=== PATIENT | male | born 1935 | race Caucasian/White ===

== ENCOUNTER → 2016-06-07 | Day surgery (SDC) | payer OTHER ==
[2016-05-30 11:28] VITALS: Ht 185.4 cm; Wt 90.9 kg
[~2016-06-07] VITALS: Ht 185.4 cm; Wt 90.9 kg
[~2016-06-07] MED LIST: AMLO-110 PO; ASPI81TA28 PO; CHOL1000 PO; CITA20TA9 PO; CYM/30 PO; DICY10CA55 PO; EpHEDrine SULFATE 50MG/5ML SYR ONE; HYDR-3419 PO; LEVO75TA PO; LIDOCAINE HCL 2% 2 ML VIAL (20MG/ML) ONE; LISI20TA3 PO; MECL1TAB40 PO; MULTTAB58 PO; NTRGSL/4 UT; OMEP20TA74 PO; OXYC1TAB3 PO; PHENYLEPHRINE 100MCG/ML 5ML SYR ONE; PROPOFOL IV EMULSION 10 MG/ML 20 ML VIAL IV ONE; SODIUM CHLORIDE 0.9% 500ML 500 ML IV ONE; TAMS0.4C38 PO
--- NOTE | 2016-06-07 12:40 | Endo History and Physical ---
History & Physical Date of Service: June 07, 2016. Chief Complaint: Referring Physician: History of Present Illness 81 yo presenting for EGD/Colonosocpy for polyp follow up and EGD for dysphagia. Past Medical History Diabetes, Endocrine Disorder, Arthritis, Gastrointestinal Disorder, Reflux, Cancer, High Cholesterol, Sleep Apnea, Heart Disease, Hypertension, Thyroid Disease, Chronic Steroid Use, CVA/TIA, Depression Past Surgical History Hx Cardiac Surgery: No Hx Internal Defibrillator: No Hx Pacemaker: No Hx Abdominal Surgery: Yes (APPY) Hx of Implantable Prosthesis: No Hx Post-Op Nausea and Vomiting: No Hx Cancer Surgery: No Hx Thoracic Surgery: No Hx Orthopedic: Yes (RT/LT RALPH) Hx Urinary Tract Surgery: No Family History None Social History Smoking Status: Former Smoker Hx Substance Use: Yes (SEE MED LIST) Hx Alcohol Use: No Allergies Coded Allergies: Amoxicillin (Unverified Adverse Reaction, Intermediate, JAUNDICE, 05/30/16) Clavulanic Acid (Unverified Adverse Reaction, Intermediate, JAUNDICE, 05/30) Isosorbide Nitrate (Unverified Adverse Reaction, Unknown, PAIN IN LIMBS DIARRHEA, 05/30/16) Current Medications Reported Home Medications Medications Dose Route/Sig Max Daily Dose Days Date Category Vitamin D3 (Cholecalciferol) 1,000 Unit Tab 1 Tab PO QAM 05/30/16 Reported Aspirin Ec (Aspirin) 81 Mg Tab 81 Mg PO BID 05/30/16 Reported Roxicodone Ir (Oxycodone HCl) 5 Mg Tab 1 Tab PO Q2H PRN 05/30/16 Reported Bentyl (Dicyclomine Hcl) 10 Mg Cap 10 Mg PO QID PRN 05/30/16 Reported Synthroid (Levothyroxine Sodium) 75 Mcg Tab 75 Mcg PO QAM 05/30/16 Reported Vicodin (5MG/300MG) (Hydrocodon/Acetaminophen 5MG/300MG) 1 Tab Tab 1 Tab PO Q4H PRN 01/19/16 Reported Ra Omeprazole (Omeprazole) 20 Mg Tab 1 Tab PO BID 12/20/15 Reported Nitrostat (Nitroglycerin) 0.4 Mg Tab 0.4 Mg UT PRN 12/09/15 Reported Norvasc (Amlodipine Besylate) 5 Mg Tab 5 Mg PO QAM 06/30/15 Reported Flomax (Tamsulosin Hcl) 0.4 Mg Cap 1 Cap PO QPM 01/24/15 Reported Meclizine Hcl 12.5 Mg Tab 12.5-25 Mg PO TID PRN 12/26/12 Reported Multivitamin (Multiple Vitamin) 1 Tab Tab 1 Tab PO QAM 07/31/12 Reported Prinivil (Lisinopril) 20 Mg Tab 20 Mg PO QAM 01/04/12 Reported Vital Signs Weight (Kilograms): 90.91 Height (Feet): 6 Height (Inches): 1 Physical Exam General Appearance: WD/WN, no apparent distress Respiratory/Chest: Respiratory effort: no dyspnea Auscultation: breath sounds normal, CTA except as noted Cardiovascular: Apical Impulse: not displaced Heart Auscultation: RRR, normal S1, normal S2, no murmurs Abdomen: Bowel Sounds: normal Inspection & Palpation: soft, non-distended Assessment and Plan 81 yo w presenting to EGD/Colonoscopy for dysphagia and rectal bleeding and polyp history
--- NOTE | 2016-06-07 13:30 | GI REPORT ---
Procedure Date: 06/07/2016 12:08 PM Procedure: Colonoscopy Indications: Rectal bleeding Medicines: General Anesthesia Complications: No immediate complications. Estimated blood loss: None. Estimated Blood Loss: Estimated blood loss: none. Procedure: Pre-Anesthesia Assessment: - Pre-Anesthesia Assessment: - Prior to the procedure, a History and Physical was performed, and patient medications, allergies and sensitivities were reviewed. The patient's tolerance of previous anesthesia was reviewed. Please see [employer] for complete details. - The risks and benefits of the procedure and the sedation options and risks were discussed with the patient. All questions were answered and informed consent was obtained. - Patient identification and proposed procedure were verified prior to the procedure by the physician and the nurse. The procedure was verified in the pre-procedure area in the procedure room. After obtaining informed consent, the endoscope was passed carefully and meticuously under direct vision and only advanced when the lumen was clearly identified, C02 insuflation was utilized throughout the entirity of the procedure. Throughout the procedure, the patient's blood pressure, pulse, and oxygen saturations were monitored continuously. After I obtained informed consent, the scope was passed under direct vision. Throughout the procedure, the patient's blood pressure, pulse, and oxygen saturations were monitored continuously. The scope was introduced through the anus and advanced to the terminal ileum, with identification of the appendiceal orifice and IC valve. The scope was introduced through the and advanced to. The colonoscopy was performed without difficulty. The patient tolerated the procedure well. The quality of the bowel preparation was good. Findings: A patchy area of mildly altered vascular mucosa was found in the rectum. no inflammation and has appearances of radiation changes. Multiple small and large-mouthed diverticula were found in the sigmoid colon. There was narrowing of the colon in association with the diverticular opening. Erythema was seen in association with the diverticular opening with edema. The terminal ileum appeared normal. The exam was otherwise without abnormality on direct and retroflexion views. Impression: - Altered vascular mucosa in the rectum. - Mild diverticulosis in the sigmoid colon. There was narrowing of the colon in association with the diverticular opening. Erythema was seen in association with the diverticular opening. - The examined portion of the ileum was normal. - The examination was otherwise normal on direct and retroflexion views. - No specimens collected. Recommendation: - Discharge patient to home (with escort). - Return to referring physician as previously scheduled. - Continue present medications. Alexander Lo MD 06/07/2016 1:28:46 PM This report has been signed electronically. Note Initiated On: 06/07/2016 12:08 PM I attest to the content of the Intraoperative Record and orders documented therein, exceptions below
--- NOTE | 2016-06-07 13:32 | GI REPORT ---
Procedure Date: 06/07/2016 12:09 PM Procedure: Upper GI endoscopy Indications: Dysphagia Medicines: General Anesthesia Complications: No immediate complications. Estimated blood loss: None. Estimated Blood Loss: Estimated blood loss: none. Procedure: Pre-Anesthesia Assessment: - Pre-Anesthesia Assessment: - Prior to the procedure, a History and Physical was performed, and patient medications, allergies and sensitivities were reviewed. The patient's tolerance of previous anesthesia was reviewed. Please see [id number] for complete details. - The risks and benefits of the procedure and the sedation options and risks were discussed with the patient. All questions were answered and informed consent was obtained. - Patient identification and proposed procedure were verified prior to the procedure by the physician and the nurse. The procedure was verified in the pre-procedure area in the procedure room. After obtaining informed consent, the endoscope was passed carefully and meticuously under direct vision and only advanced when the lumen was clearly identified, C02 insuflation was utilized throughout the entirity of the procedure. Throughout the procedure, the patient's blood pressure, pulse, and oxygen saturations were monitored continuously. After obtaining informed consent, the endoscope was passed under direct vision. Throughout the procedure, the patient's blood pressure, pulse, and oxygen saturations were monitored continuously. The On-site loaner was introduced through the mouth, and advanced to the second part of duodenum. The upper GI endoscopy was accomplished without difficulty. The patient tolerated the procedure well. Findings: A hiatus hernia was present. No endoscopic abnormality was evident in the esophagus to explain the patient's complaint of dysphagia. It was decided, however, to proceed with dilation of the entire esophagus. A guidewire was placed and the scope was withdrawn. Dilation was performed with a Savary dilator with mild resistance at 15 mm. The entire examined stomach was normal. The examined duodenum was normal. Impression: - Hiatus hernia. - No endoscopic esophageal abnormality to explain patient's dysphagia. Esophagus dilated. Dilated. - Normal stomach. - Normal examined duodenum. - No specimens collected. Recommendation: - Discharge patient to home (with escort). - Return to referring physician as previously scheduled. - Continue present medications. Alexander Lo MD 06/07/2016 1:30:48 PM This report has been signed electronically. Note Initiated On: 06/07/2016 12:09 PM I attest to the content of the Intraoperative Record and orders documented therein, exceptions below
--- NOTE | 2016-06-07 13:33 | Discharge Instructions ---
Endoscopy Patient Instructions Date / Procedure(s) Performed June 07, 2016. Colonoscopy, EGD Allergy Information Coded Allergies: Amoxicillin (Verified Adverse Reaction, Intermediate, JAUNDICE, 06/07/16) Clavulanic Acid (Verified Adverse Reaction, Intermediate, JAUNDICE, 06/07/16 ) Isosorbide Nitrate (Verified Adverse Reaction, Unknown, PAIN IN LIMBS DIARRHEA, 06/07/16) Discharge Date / Findings June 07, 2016. Small hernia in esophagus-dilated Colon with changes of diverticuli, hemorrhoids, and radiation changes all of which can cause rectal bleeding Medication Instructions Stopped Medication(s): took ASA this am Provider Instructions Activity Restrictions - No exercising or heavy lifting for 24 hours. - Do not drink alcohol the day of the procedure. - Do not drive a car or operate machinery until the day after the procedure. - Do not make any important decisions or sign important papers in 24 hours after the procedure. Following Day: - Return to full activity which may include returning to work/school. Diet Start your diet with liquids and light foods (jello, soup, juice, toast). Then eat your usual diet if not nauseated. Treatment For Common After Affects For mild abdominal pain, bloating, or excessive gas: - Rest - Eat lightly - Lie on right side Follow-Up Information Follow-up with Dr. Jonathan Lan as scheduled Anesthesia Information What You Should Know You have had a procedure that required some medicine to reduce anxiety and discomfort. This treatment is called moderate sedation. After receiving the treatment, you may be sleepy, but you will be able to breathe on your own. The effects of the treatment may last for several hours. Follow these instructions along with Activity/Diet recommendations noted above: * Do NOT do anything where dizziness or clumsiness would be dangerous. * Rest quietly at home today, then you can be up and about tomorrow. * Have a responsible person stay with you the rest of today. * You may have had an I.V. today. If so, you may take the dressing off later today. Recommendations Call your doctor if: * Trouble breathing * Continuous vomiting for more than 24 hours * Temperature above 101 degrees * Severe abdominal pain or bloating * Pain not relieved by pain medicine ordered * There is increased drainage or redness from any incision * A large amount of rectal bleeding greater than 2-3 tablespoons. (If you had a polyp/s removed or have hemorrhoids, a small amount of blood - from the rectum is to be expected.) * You have any unanswered questions or concerns. IN THE EVENT OF A SERIOUS EMERGENCY, GO TO THE NEAREST EMERGENCY ROOM Your discharge instructions were prepared by provider Alexander Lo. Patient Instructions Signature Page Parth Jett Patient (or Guardian) Signature/Date: I have read and understand the instructions given to me by my caregivers. Caregiver/RN/Doctor Signature/Date: The above-named patient and/or guardian has received patient instructions on this date. + Original Patient Signature Page (only) stays with chart. Please make copy for patient.
[2016-06-07 13:55] VITALS: BP 116/67; PULSE 93; O2SAT 99
--- NOTE | 2016-06-07 14:24 | Anesthesiology Progress Note ---
Anesthesia Post Op Note Date & Time June 07, 2016 at 14:24 Vital Signs Pain Intensity: 0 Vital Signs Past 12 Hours Date Time Temp Pulse Resp B/P Pulse Ox O2 Delivery O2 Flow Rate FiO2 06/07/16 13:55 93 18 116/67 99 Room Air 06/07/16 13:40 93 18 122/75 99 Mask 06/07/16 13:25 98 18 101/59 99 Mask 06/07/16 12:26 36.9 90 18 121/85 95 Room Air Notes Mental Status: alert / awake / arousable, participated in evaluation Pt Amnestic to Procedure: Yes Nausea / Vomiting: adequately controlled Pain: adequately controlled Airway Patency, RR, SpO2: stable & adequate BP & HR: stable & adequate Hydration State: stable & adequate Anesthetic Complications: no major complications apparent
== END | disposition home or self-care (01) ==
LOC: C.GI 11:51
PROVIDERS: ATTEND Internal Medicine
DX: R13.10 Dysphagia, unspecified (principal); K62.5 Hemorrhage of anus and rectum; K57.30 Diverticulosis of large intestine without perforation or abscess without bleeding; K44.9 Diaphragmatic hernia without obstruction or gangrene; E11.9 Type 2 diabetes mellitus without complications; M19.90 Unspecified osteoarthritis, unspecified site; K21.9 Gastro-esophageal reflux disease without esophagitis; E78.00 Pure hypercholesterolemia, unspecified; G47.39 Other sleep apnea; I10 Essential (primary) hypertension; F32.9 Major depressive disorder, single episode, unspecified; G47.30 Sleep apnea, unspecified; Z86.73 Personal history of transient ischemic attack (TIA), and cerebral infarction without residual deficits; Z79.82 Long term (current) use of aspirin; Z79.899 Other long term (current) drug therapy; Z85.46 Personal history of malignant neoplasm of prostate

== ENCOUNTER → 2016-07-27 | Outpatient (CLI) | payer OTHER ==
[~2016-07-27] MED LIST changes: -CITA20TA9 PO; -CYM/30 PO; -EpHEDrine SULFATE 50MG/5ML SYR ONE; -LIDOCAINE HCL 2% 2 ML VIAL (20MG/ML) ONE; -PHENYLEPHRINE 100MCG/ML 5ML SYR ONE; -PROPOFOL IV EMULSION 10 MG/ML 20 ML VIAL IV ONE; -SODIUM CHLORIDE 0.9% 500ML 500 ML IV ONE
[2016-07-27 13:28] VITALS: BP_SYST 111; BP_SYST 115; BP_DIAS 61; BP_DIAS 66; PULSE 92; TEMP 36.8; O2SAT 93
--- NOTE | 2016-07-27 17:25 | Radiation Oncology Follow-Up ---
Radiation Oncology Follow-Up Date of Visit Jul 27, 2016. 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 PSA, pre-evaluation PSA 5.41 Status post biopsy 06/10/2009 Vikram 4+4 Biopsy stage T2a Active surveillance Rising PSA 6.5 equals 13 on Proscar Status post completion of radiation therapy 02/24/2015 received 8100 cGy Last Edited By: Ebony Ordaz on Jan 19, 2016 16:48 (Abbey Barnett PA-C) History of Present Illness Mr. Jett is a 79-year-old gentleman who was diagnosed with prostate cancer in 2009. He did have an initial PSA of 5.41 which prompted a biopsy which was completed by Dr. Flores on 06/10/2009 which revealed Beresford 4+4 prostate adenocarcinoma disease in the right apex only. At this point the decision was for watchful waiting with no active intervention. The patient continues to do relatively well with a PSA that was stabilized on Proscar. The patient did eventually have a stroke and was found to have some urinary incontinence and this was felt to be due to the prostate cancer to the patient was initiated with Lupron in November 2011 and had 2 injections and his PSA did drop to 0.01. The patient was unable to tolerate Lupron for very long and refused further in the patient has been on active surveillance since then. The patient's more recent PSAs have been 3.7 01/08/2014, 4.93 in April 2014 and most recently 6.50 on 10/19/2014 (on proscar). Due to the fact of the patient is having a rising PSA, we been asked to evaluate the patient for consideration of radiation therapy by Dr. Gallardo. Of note, he did have a bone scan in July 2011 which showed questionable activity in the lumbar spine and right shoulder which is eventually ruled out as metastatic disease. He completed radiation therapy 02/24/2015 received 8100 cGy. (Abbey Barnett PA-C) Interim History He is doing well from a urinary standpoint. He gave an AUA score of 8. He completed expanded prostate cancer index composite for clinical practice and gave a score of 2 of 12 urinary incontinence symptoms. He gave a score of 3 of 12 in urinary irritation symptoms. He gave a score of 2 of 12 in bowel symptoms. He gave a score of 10 of 12 in sexual symptoms. He gave a score of 5 of 12 and hormonal vitality symptoms. His total was 22 of 60. He does continue on the Flomax once daily. Previously it had been twice daily. He had a PSA 11/02/2016 and that was 0.04. These are being followed by Dr. Gallardo. He developed bright red rectal bleeding with diarrhea. He was referred to gastroenterology and underwent a colonoscopy. He was also having difficulty swallowing and had an upper GI endoscopy. 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 For the diarrhea he was prescribed Bentyl. He is been taking that twice daily. He has not had any further rectal bleeding. He does have irregularity of the bowel movements. He did have some mild esophageal stricture and had a dilatation with the upper GI endoscopy. (Abbey Barnett PA-C) Allergies Coded Allergies: Amoxicillin (Verified Adverse Reaction, Intermediate, JAUNDICE, 06/07/16) Clavulanic Acid (Verified Adverse Reaction, Intermediate, JAUNDICE, 06/07/16 ) Isosorbide Nitrate (Verified Adverse Reaction, Unknown, PAIN IN LIMBS DIARRHEA, 06/07/16) Home Medications Scheduled Amlodipine (Norvasc), 5 MG PO QAM Aspirin (Aspirin Ec), 81 MG PO BID Cholecalciferol (Vitamin D3), 1 TAB PO QAM Levothyroxine Sodium (Synthroid), 75 MCG PO QAM Lisinopril (Prinivil), 20 MG PO QAM Multiple Vitamin (Multivitamin), 1 TAB PO QAM Nitroglycerin (Nitrostat), 0.4 MG UT PRN Omeprazole (Ra Omeprazole), 1 TAB PO BID Tamsulosin Hcl (Flomax), 1 CAP PO QPM Scheduled PRN Dicyclomine Hcl (Bentyl), 10 MG PO QID PRN for ABDOMINAL PAIN Hydrocodon/Acetaminophen 5MG/300MG (Vicodin (5MG/300MG)), 1 TAB PO Q4H PRN for Pain Meclizine Hcl (Meclizine Hcl), 12.5-25 MG PO TID PRN for DIZZINESS Review of Systems Gastrointestinal: Symptoms: WNL GI Comments: Started Bentyl for diarrhea/bloody stools after seeing GI - radiation proct Oral: Symptoms: No Problems Other Oral Symptoms: Had esophagus stretched - helped with swallowing Respiratory: Symptoms: WNL, SOB With Exertion Urinary: Symptoms: Nocturia Comments: Nocturia x 2, See AUA & EPIC Skin: Symptoms: No Problems (Abbey Barnett PA-C) Physical Exam Vital Signs Date Time Temp Pulse Resp B/P (MAP) Pulse Ox O2 Delivery O2 Flow Rate FiO2 07/27/16 13:28 36.8 92 14 111/61 93 115/66 Fatigue: None General Appearance: no apparent distress Eyes: normal inspection, EOMI ENT: normal ENT inspection, hearing grossly normal Neck: no adenopathy, thyroid normal Respiratory/Chest: lungs clear, no respiratory distress, no accessory muscle use Cardiovascular: regular rate, rhythm, no gallop, no murmur Abdomen: non tender, soft, no organomegaly Extremities: no pedal edema Neurologic/Psychiatric: no motor/sensory deficits, alert, normal mood/affect Skin: warm/dry (Abbey Barnett PA-C) Additional Studies PSA as reviewed above. (Abbey Barnett PA-C) Assessment & Plan Plan: The patient was also seen today by Dr. Ordaz. We reviewed with him the radiation proctitis. The photos taken at the time of the colonoscopy were shown to the patient. I discussed with him that the bleeding could occur again should he have difficulty with diarrhea or with constipation. I recommended that he take Metamucil daily. He may especially need this if the Bentyl is discontinued. We discussed the Flomax. His AUA score is steadily improved and he could try to wean off the medication. We asked him to return to our office October 2017 (Abbey Barnett PA-C) I agree with note created by Abbey Barnett PA-C. I reviewed the patient's chart and information with her. I have examined and evaluated the patient. I reviewed relevant clinical information and answered the patient's and/or family' s questions. (Veeral. Ordaz MD) Total Time In Follow-Up I spent 20 minutes speaking to the patient performing examination. I spent 15 minutes reviewing information completing this note. (Abbey Barnett PA-C) I spent 15 minutes examining and counseling the patient. (Veeral. Ordaz MD) Copy To Jonathan Lan M.D.; Sarah Gallardo MD
== END | disposition home or self-care (01) ==
LOC: C.ONC 13:11
PROVIDERS: ATTEND Physician Assistant Medical
DX: Z08 Encounter for follow-up examination after completed treatment for malignant neoplasm (principal); Z92.3 Personal history of irradiation; Z85.46 Personal history of malignant neoplasm of prostate

== ENCOUNTER → 2016-11-21 | Outpatient (CLI) | payer OTHER ==
[~2016-11-21] MED LIST changes: +CITA20TA9 PO; +CYM/30 PO; -OXYC1TAB3 PO
[2016-11-21 13:48] VITALS: BP 109/64; PULSE 115; TEMP 36.4; O2SAT 94
--- NOTE | 2016-11-21 16:32 | Radiation Oncology Follow-Up ---
Radiation Oncology Follow-Up Date of Visit Nov 21, 2016. Reason For Visit Three-month follow-up Radiation Completion Date 02/24/15 Diagnosis (1) Prostate cancer Status: Resolved Onset Date: 06/10/2009 Permanent Comment: DIAGNOSIS: Prostate, adenocarcinoma, vikram 4 + 4, PSA 6.5 , cT1c, group IIB Rising. PSA, pre-evaluation PSA 5.41 Status post biopsy 06/10/2009 [place] 4+4 Biopsy stage T2a Active surveillance Rising PSA 6.5 equals 13 on Proscar Status post completion of radiation therapy 02/24/2015 received 8100 cGy Last Edited By: Ebony Ordaz on Jan 19, 2016 16:48 History of Present Illness Mr. Jett was diagnosed with prostate cancer in 2009. He did have an initial PSA of 5.41 which prompted a biopsy which was completed by Dr. Flores on 2009 which revealed [place] 4+4 prostate adenocarcinoma disease in the right apex only. At this point the decision was for watchful waiting with no active intervention. The patient continues to do relatively well with a PSA that was stabilized on Proscar. The patient did eventually have a stroke and was found to have some urinary incontinence and this was felt to be due to the prostate cancer to the patient was initiated with Lupron in November 2011 and had 2 injections and his PSA did drop to 0.01. The patient was unable to tolerate Lupron for very long and refused further in the patient has been on active surveillance since then. The patient's more recent PSAs have been 3.7 2013, 4.93 in April 2014 and most recently 6.50 on 10/19/2014 (on proscar). Due to the fact of the patient is having a rising PSA, we been asked to evaluate the patient for consideration of radiation therapy by Dr. Gallardo. Of note, he did have a bone scan in July 2011 which showed questionable activity in the lumbar spine and right shoulder which is eventually ruled out as metastatic disease. He completed radiation therapy 02/24/2015 received 8100 cGy. Interim History Patient had been seen 07/27/2016. Complaint of intermittent rectal bleeding with diarrhea. He had a colonoscopy and was diagnosed with radiation proctitis. He was referred to gastroenterology and was seen by a physician Asst. Recommendation was for him to use a suppository on a nightly basis. He was given a prescription which was first not picked up due to the stoner. His stated he began to have more problems show she did decide pickup the prescription. He use this for one night only. He had been instructed to use Metamucil on a daily basis. He has not been doing this. He has chronic fatigue and pain. He was referred to tumbling machine operator. She did start him on Cymbalta. He felt this did help at first but not as much now. He has a lot of discomfort in his shoulders. She gave him a new injection. He gave an AUA score today of 11. Completed and expanded prostate cancer index composite for clinical practice and gave a score of 0 of 12 and urinary incontinence symptoms. He gave a score of 3 of 12 urinary irritation symptoms. He gave a score of 9 of 12 in bowel symptoms. He gave a score of 10 of 12 sexual symptoms. He gave a score of 6 of 12 and hormonal vitality symptoms. His total was 18 of 60. We had previously discussed weaning off of the Flomax. He feels he does better on the medication and has continued the Flomax. He had a recheck PSA on 11/02/2016. That was found to be 0.08. Allergies Coded Allergies: Amoxicillin (Verified Adverse Reaction, Intermediate, JAUNDICE, 06/07/16) Clavulanic Acid (Verified Adverse Reaction, Intermediate, JAUNDICE, 06/07/16 ) Isosorbide Nitrate (Verified Adverse Reaction, Unknown, PAIN IN LIMBS DIARRHEA, 06/07/16) Home Medications Scheduled Amlodipine (Norvasc), 5 MG PO QAM Aspirin (Aspirin Ec), 81 MG PO BID Cholecalciferol (Vitamin D3), 1 TAB PO QAM Citalopram Hydrobromide (Celexa), 1 TAB PO DAILY Duloxetine HCl (Cymbalta), 1 CAP PO DAILY Levothyroxine Sodium (Synthroid), 75 MCG PO QAM Lisinopril (Prinivil), 20 MG PO QAM Multiple Vitamin (Multivitamin), 1 TAB PO QAM Nitroglycerin (Nitrostat), 0.4 MG UT PRN Omeprazole (Ra Omeprazole), 1 TAB PO BID Tamsulosin Hcl (Flomax), 1 CAP PO QPM Scheduled PRN Hydrocodon/Acetaminophen 5MG/300MG (Vicodin (5MG/300MG)), 1 TAB PO Q4H PRN for Pain Meclizine Hcl (Meclizine Hcl), 12.5-25 MG PO TID PRN for DIZZINESS Review of Systems Gastrointestinal: Symptoms: Diarrhea GI Comments: diarrhea 3-4x/day the past week with blood 2-3x/week Oral: Symptoms: No Problems Respiratory: Symptoms: Dry Cough, SOB With Exertion Urinary: Symptoms: WNL, Nocturia Comments: Nocturia x 2-3x, see AUA & EPIC Skin: Symptoms: No Problems Physical Exam Vital Signs Date Time Temp Pulse Resp B/P (MAP) Pulse Ox O2 Delivery O2 Flow Rate FiO2 11/21/16 13:48 36.4 115 16 109/64 94 Fatigue: None General Appearance: no apparent distress Eyes: normal inspection, EOMI ENT: normal ENT inspection, hearing grossly normal Respiratory/Chest: lungs clear, no respiratory distress, no accessory muscle use Cardiovascular: regular rate, rhythm, no gallop, no murmur Abdomen: non tender, soft, no organomegaly Extremities: no pedal edema Neurologic/Psychiatric: no motor/sensory deficits, alert, + depressed affect Skin: warm/dry Assessment & Plan Plan: The patient was seen and examined by Dr. Ordaz. We discussed his symptoms. I recommended that he use the medication that was prescribed on a regular basis. He is instructed to take Metamucil daily. He does have follow- up appointment with gastroenterology. We asked him to return to our office in 6 months. He'll continue follow-up with his primary care provider as well as tumbling machine operator. He'll continue regular follow-up with Dr. Gallardo. Assessment & Plan (Attending) ADDENDUM: I agree with note created by Abbey Barnett PA-C. I reviewed the patient's chart and information with her. I have examined and evaluated the patient. I reviewed relevant clinical information and answered the patient's and /or family's questions. EXECUTIVE COACH Total Time In Follow-Up I spent 20 minutes PE to the patient and performing examination. I said 15 minutes reviewing information in completing this note. Total Time (Attending) In Follow-Up I spent 15 minutes examining and counseling the patient. EXECUTIVE COACH Copy To Jonathan Lan M.D.; Sarah Gallardo MD
== END | disposition home or self-care (01) ==
LOC: C.ONC 13:39
PROVIDERS: ATTEND Physician Assistant Medical
DX: Z08 Encounter for follow-up examination after completed treatment for malignant neoplasm (principal); Z92.3 Personal history of irradiation; Z85.46 Personal history of malignant neoplasm of prostate

== ENCOUNTER → 2017-05-24 | Outpatient (CLI) | payer OTHER ==
[~2017-05-24] MED LIST changes: -DICY10CA55 PO
[2017-05-24 13:23] VITALS: BP 121/72; PULSE 107; TEMP 36.5; O2SAT 96
--- NOTE | 2017-05-24 14:24 | Radiation Oncology Follow-Up ---
Radiation Oncology Follow-Up Date of Visit May 24, 2017. Reason For Visit Six-month follow-up Radiation Completion Date 02/24/15 Diagnosis (1) Prostate cancer Status: Resolved Onset Date: 06/10/2009 Stage: ll (Biopsy stage) Permanent Comment: DIAGNOSIS: Prostate, adenocarcinoma, vikram 4 + 4, PSA 6.5 , cT1c, group IIB Rising. PSA, pre-evaluation PSA 5.41 Status post biopsy 06/10/2009 [place] 4+4 Biopsy stage T2a Active surveillance Rising PSA 6.5 equals 13 on Proscar Status post completion of radiation therapy 02/24/2015 received 8100 cGy Last Edited By: Ebony Ordaz on Jan 19, 2016 16:48 History of Present Illness Mr. Jett was diagnosed with prostate cancer in 2009. He did have an initial PSA of 5.41 which prompted a biopsy which was completed by Dr. Flores on 2009 which revealed [place] 4+4 prostate adenocarcinoma disease in the right apex only. At this point the decision was for watchful waiting with no active intervention. The patient continues to do relatively well with a PSA that was stabilized on Proscar. The patient did eventually have a stroke and was found to have some urinary incontinence and this was felt to be due to the prostate cancer to the patient was initiated with Lupron in November 2011 and had 2 injections and his PSA did drop to 0.01. The patient was unable to tolerate Lupron for very long and refused further in the patient has been on active surveillance since then. The patient's more recent PSAs have been 3.7 2013, 4.93 in April 2014 and most recently 6.50 on 10/19/2014 (on proscar). Due to the fact of the patient is having a rising PSA, we been asked to evaluate the patient for consideration of radiation therapy by Dr. Gallardo. Of note, he did have a bone scan in July 2011 which showed questionable activity in the lumbar spine and right shoulder which is eventually ruled out as metastatic disease. He completed radiation therapy 02/24/2015 received 8100 cGy. Interim History He is stable from urinary status point. His AUA score today was 11. At his last visit he gave an AUA score of 11. He completed and expanded prostate cancer index composite for clinical practice and gave a score of 0 12 and urinary incontinence symptoms. He gave a score of 3 of 12 and urinary irritation symptoms. He gave a score 1 of 12 and bowel symptoms. He gave a score of 9 of 12 and sexual symptoms. He gave a score of 5 of 12 and hormonal vitality symptoms. His total was 18 of 60. He has seen urology in follow-up and had a PSA. That was performed April 09, 2017 and was found to be 0.07. The PSA prior was November 02, 2016 and that was 0.08. When he discussed his bowel issues with Dr. Gallardo he related that eating tomatoes seems to make things worse in regards to loose bowel movements. Today he told me that the only time he has rectal bleeding is when he has constipation. He does admit that he does not drink a lot of fluids throughout the day. He does not use Metamucil. We have previously discussed increasing fiber to help keep bowel movements softer. This was also help with regulation of loose bowel movements. He had been prescribed a suppository for inflammation. He stated that he is using an [id number] suppository once a night. Dr. Lan is following his issues with depression. He did have an increase in his medication several months ago. He continues to have issues with low energy levels. Allergies Coded Allergies: Amoxicillin (Verified Adverse Reaction, Intermediate, JAUNDICE, 06/07/16) Clavulanic Acid (Verified Adverse Reaction, Intermediate, JAUNDICE, 06/07/16 ) Isosorbide Nitrate (Verified Adverse Reaction, Unknown, PAIN IN LIMBS DIARRHEA, 06/07/16) Home Medications Scheduled Amlodipine (Norvasc), 5 MG PO QAM Aspirin (Aspirin Ec), 81 MG PO BID Cholecalciferol (Vitamin D3), 1 TAB PO QAM Citalopram Hydrobromide (Celexa), 1 TAB PO DAILY Duloxetine HCl (Cymbalta), 1 CAP PO DAILY Levothyroxine Sodium (Synthroid), 75 MCG PO QAM Lisinopril (Prinivil), 20 MG PO QAM Multiple Vitamin (Multivitamin), 1 TAB PO QAM Nitroglycerin (Nitrostat), 0.4 MG UT PRN Omeprazole (Ra Omeprazole), 1 TAB PO BID Tamsulosin Hcl (Flomax), 1 CAP PO Q2D Scheduled PRN Hydrocodon/Acetaminophen 5MG/300MG (Vicodin (5MG/300MG)), 1 TAB PO Q4H PRN for Pain Meclizine Hcl (Meclizine Hcl), 12.5-25 MG PO TID PRN for DIZZINESS Review of Systems Gastrointestinal: Symptoms: WNL, Constipation, Diarrhea GI Comments: Goes between diarrhea and constipation with rectal bleeding 2-3 /wk Oral: Symptoms: No Problems Respiratory: Symptoms: WNL, Dry Cough, SOB With Exertion Urinary: Symptoms: WNL, Nocturia Comments: Nocturia x 1, See AUA & EPIC Skin: Symptoms: No Problems Physical Exam Vital Signs Date Time Temp Pulse Resp B/P (MAP) Pulse Ox O2 Delivery O2 Flow Rate FiO2 05/24/17 13:23 36.5 107 16 121/72 96 Fatigue: None General Appearance: no apparent distress Eyes: normal inspection, EOMI ENT: normal ENT inspection, hearing grossly normal Respiratory/Chest: lungs clear, no respiratory distress, no accessory muscle use Cardiovascular: regular rate, rhythm, no gallop, no murmur Abdomen: non tender, soft, no organomegaly Anal / Rectum: Slightly decreased sphincter tone. No rectal masses no rectal bleeding. Prostate without nodules. Extremities: no pedal edema Neurologic/Psychiatric: no motor/sensory deficits, alert, normal mood/affect Skin: warm/dry Pain Management Patient Reports Pain: No Initial Pain Intensity: 0.0 Pain Management Plan He denies pain therefore requires no pain management. Laboratory Laboratory Results: were reviewed Laboratory Comments: Reviewed in the interim history. Pathology Pathology Results: were reviewed, and pertinent findings noted in HPI Imaging Imaging Studies: not applicable Assessment & Plan Plan: Continue regular follow-up with his primary care physician and urologist. His PSA was reviewed. We discussed the issues with irregular bowel habits. I have asked him once again to take Metamucil on a regular basis. He was encouraged to drink more fluids to help prevent constipation. I discussed with him if he has regular bowel movements he likely will not need the suppositories. He is taking his Flomax every other day as instructed by Dr. Gallardo. He will continue to follow-up with Dr. Lan in regards to his low energy levels. We asked him to return to our office in 1 year. He may call if he has any questions or concerns in the interim. Total Time In Follow-Up I spent 20 minutes speaking to the patient in performing examination. I spent 15 minutes reviewing information and completing this note. Copy To Jonathan Lan M.D.; Sarah Gallardo MD
== END | disposition home or self-care (01) ==
LOC: C.ONC 13:13
PROVIDERS: ATTEND Physician Assistant Medical
DX: Z08 Encounter for follow-up examination after completed treatment for malignant neoplasm (principal); Z92.3 Personal history of irradiation; Z85.46 Personal history of malignant neoplasm of prostate

== ENCOUNTER 2023-07-19 17:37 | Observation (INO) ==
--- NOTE | 2023-07-19 17:54 | ED Triage Note ---
Date of Service July 19, 2023 Provider in Triage Author: Gogo Cherry History of Present Illness This patient was briefly evaluated while in triage. An abbreviated physical exam was performed. This patient is a 88-year-old Male who presents to the ED for evaluation of multiple falls this week, and fell today. Denies any injuries or pain. Did hit head, does not think any LOC. Denies thinners. History of brain bleed a couple months ago from a fall. Says feels dizzy at times. Legs feel weak. Physical Exam CONSTITUTIONAL: No acute distress. Well appearing. HEENT: Atraumatic NECK: Nontender to palpation RESPIRATORY: Clear to auscultation bilaterally. Equal expansion bilaterally. CARDIOVASCULAR: Regular rate and rhythm. GASTROINTESTINAL: Soft, nontender. NEUROLOGIC: Alert and oriented X 4 with normal affect. Normal speech. Initial orders for labs and / or imaging were placed and patient was placed in the waiting area until a bed is available. Please see further documentation for the full ED course.
[2023-07-19 18:32] LABS: Basophils # (auto) 0.05 K/uL (0.00-0.20); Basophils % (auto) 1.3 %; Eosinophils # (auto) 0.35 K/uL (0.00-0.50); Eosinophils % (auto) 9.3 %; Hematocrit (blood only) 38.4 % (42.0-52.0); Hemoglobin 12.9 g/dl (14.0-18.0); Immature Granulocytes # (auto) 0.01 K/uL (0.01-0.20); Immature Granulocytes % (auto) 0.3 %; Lymphocytes # (auto) 1.11 K/uL (1.20-3.40); Lymphocytes % (auto) 29.4 %; Mean Corpuscular Hemoglobin 30.9 pg (25.0-34.0); Mean Corpuscular Hgb Conc 33.6 g/dL (32.0-36.0); Mean Corpuscular Volume 92.1 fL (80.0-100.0); Mean Platelet Volume 10.8 fL (9.4-12.4); Monocytes # (auto) 0.49 K/uL (0.11-0.59); Neutrophils # (auto) 1.76 K/uL (1.40-6.50); Neutrophils % (auto) 46.7 %; Platelet Count 181 K/uL (130-400); RDW Coefficient of Variation 12.6 % (11.5-14.5); RDW Standard Deviation 42.5 fL (36.4-46.3); Red Blood Count 4.17 M/uL (4.70-6.10); White Blood Count 3.77 K/ul (4.8-10.8)
--- NOTE | 2023-07-19 18:44 | CT Scan Report ---
CT head/brain wo con CLINICAL HISTORY: 88 years-old Male with falls, hit head. Acute head injury status post fall TECHNIQUE: Multiple axial CT images of the head were obtained without contrast. A dose lowering tech nique was utilized adhering to the principles of ALARA. CT DOSE: 1223.33 mGy.cm COMPARISON: CT cervical spine of same day, and CT 12/02/2022 FINDINGS: No acute intracranial hemorrhage, midline shift, intracranial mass, acute territorial ischemia or abn ormal extra-axial collection. Involutional changes with chronic microvascular ischemic disease. Cereb ral vascular calcifications. Left cerebellar encephalomalacia. Unchanged ventriculomegaly, likely an extra-axial basis. Left suboccipital craniotomy. No acute calvarial fracture. The paranasal sinuses, mastoid air cells, and middle ear cavities are clear. IMPRESSION: 1. No acute intracranial abnormality. 2. Chronic findings as above. ACT 112: Negative or not required by law. The above report was generated using voice recognition software. It may contain grammatical, syntax o r spelling errors. Electronically signed by: Boyd Domingo M.D. 07/19/2023 6:42 PM
[2023-07-19 18:45] LABS: Anion Gap 5 (3-11); BUN Creatinine Ratio 13.2 (10-20); Blood Urea Nitrogen 15 mg/dl (6-23); Calcium 9.5 mg/dl (8.6-10.3); Carbon Dioxide 27 mmol/L (21-32); Chloride 107 mmol/L (98-107); Est GFR (African American) 66.6 ml/min; Est GFR (Non-African American) 57.5 ml/min; Glucose 105 mg/dl (70-99(Fasting)); Potassium 3.9 mmol/L (3.5-5.1); Sodium 139 mmol/L (136-145)
--- NOTE | 2023-07-19 18:48 | CT Scan Report ---
CT cervical spine wo con CLINICAL HISTORY: 88 years-old Male with falls, hit head. Acute head and neck injury status post fal l COMPARISON: 12/02/2022 TECHNIQUE: Multiple axial CT images of the cervical spine were obtained without contrast. A dose low ering technique was utilized adhering to the principles of ALARA. FINDINGS: Left cerebellar encephalomalacia. Left suboccipital craniectomy. Demineralized appearance o f the bones. Multilevel changes appear similar to prior including severe disc space narrowing at C6-C 7 with moderate intervertebral disc space narrowing and severe multilevel facet arthrosis. There is u nchanged grade 1 anterolisthesis C5 on C6 which is likely secondary to the chronic facet disease. No acute cervical spine fracture or subluxation. There is mild superior endplate compression involving t he T3 vertebral body without retropulsion, likely chronic. Numerous dental caries with missing teeth and periapical cysts. The lung apices are clear without pne umothorax. There are a few subpleural blebs of the lung apices. Unremarkable soft tissues. IMPRESSION: No acute cervical spine fracture or subluxation. ACT 112: Negative or not required by law. The above report was generated using voice recognition software. It may contain grammatical, syntax o r spelling errors. Electronically signed by: Boyd Domingo M.D. 07/19/2023 6:46 PM
[2023-07-19 18:52] LABS: Troponin I High Sensitivity 12.6 pg/ml (0-20)
[2023-07-19 18:59] LABS: INR 0.9 (0.9-1.1); Partial Thromboplastin Ratio 0.9; Partial Thromboplastin Time 25 Seconds (21-31); Prothrombin Time 10.3 Seconds (9.0-12.0)
[2023-07-19] MEDS: SODIUM CHLORIDE 0.9% 1,000 ML IV ONE (20:12)
[2023-07-19 20:53] LABS: Magnesium 1.8 mg/dl (1.7-2.4)
--- NOTE | 2023-07-19 21:07 | History & Physical Report ---
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 ABDI on CPAP adrenal insufficiency as per records DM2 on oral medications, well-controlled as of hemoglobin A1c of 6.3 last year Hypothyroidism, outpatient TSH within normal limits chronic anemia, hemoglobin at baseline prostate cancer status post radiation mild cognitive impairment as per records past tobacco abuse OBS PCU Check orthostatic vitals Stop Lyrica and add to ADR list Hold home beta-kat for now Atropine as needed symptomatic bradycardia TTE Re: Possible syncope, history aortic stenosis, new LBBB May need inpatient Cardiology eval PT OT eval Basal insulin, ISS BG goal 1 10-1 40, carb count coverage, update hemoglobin A1c DVT prophylaxis. SCDs Re: History spontaneous cerebellar hemorrhage Full code Patient requesting updates providers. Ms. Bee Jett, contact #[phone]. Text document was generated using [employer] voice recognition software. It may contain grammatical or spelling errors. Kindly contact undersigned for clarification of any documentation item in question. History of Present Illness Chief Complaint: Increased confusion, recurrent falls as per Primary Care Provider: Jonathan Lan MD History obtained from patient, family, and records. Limited history from patient secondary to lethargy and confusion. Medical history significant for hypertension, orthostatic hypotension as per records, valvular heart disease (moderate , mild TR, TTE 2022), cerebellar hemorrhage status post surgery, history traumatic subdural hematoma, ABDI on CPAP, history of adrenal insufficiency as per records, DM2 on oral medications, hypothyroidism, chronic anemia (baseline hemoglobin of 12), GERD, radiation proctitis as per records, prostate cancer status post radiation, BPH, chronic back pain, mild cognitive impairment as per records, past tobacco abuse. Last confinement [place] November 2022 for traumatic subdural hematoma secondary to recurrent falls. No operative intervention. Patient started by PCP on Lyrica 3 weeks ago for chronic right-sided sciatica pain. Patient noted to be more confused than usual and sleeping a lot since medication started a few weeks ago as per . Falling more than usual. May have been passing out as per . No witnessed seizures. No chest pain, no SOB, no abdominal pain. Usual loose stools nonbloody. EMS called to patient's home today. Heart rate noted to be 40s as per EMS report. Patient brought to the ER for evaluation. 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 Allergies Allergy/AdvReac Type Severity Reaction Status Date / Time clindamycin Allergy Unknown unknown--per Verified 07/19/23 20:17 [facility] record amoxicillin AdvReac Severe JAUNDICE Verified 07/19/23 20:17 clavulanic acid AdvReac Severe JAUNDICE Verified 07/19/23 20:17 dicyclomine [From Bentyl] AdvReac Intermediate dizziness, Verified 07/19/23 20:1 7 light headedness isosorbide AdvReac Intermediate PAIN IN Verified 07/19/23 20:17 LIMBS DIARRHEA oxycodone AdvReac Intermediate Confusion Verified 07/19/23 20:17 pregabalin [From Lyrica] AdvReac Intermediate Confusion Verified 07/19/23 21:13 Home Medications Medication Instructions Recorded Confirmed Type cholecalciferol (vitamin D3) 25 1,000 unit PO QPM 08/21/18 07/19/23 History mcg (1,000 unit) tablet (Vitamin D3) levothyroxine 75 mcg tablet 75 mcg PO QAM 08/21/18 07/19/23 History multivitamin 1 tab PO QAM 08/21/18 07/19/23 History nitroglycerin 0.4 mg sublingual 0.4 mg sublingual UD PRN Angina 08/21/18 07/19/23 History tablet omeprazole 20 mg tablet,delayed 20 mg PO QAM 08/21/18 07/19/23 History release tamsulosin 0.4 mg capsule 0.4 mg PO QAM 08/21/18 07/19/23 History finasteride 5 mg tablet 5 mg PO QAM 10/02/19 07/19/23 History acetaminophen 500 mg tablet 500 mg PO Q6H PRN Pain 02/23/22 07/19/23 History duloxetine 60 mg capsule,delayed 60 mg PO QAM 02/23/22 07/19/23 History release sprinkle rosuvastatin 10 mg tablet 10 mg PO QDL 02/23/22 07/19/23 History metoprolol succinate 50 mg 50 mg PO QAM 12/02/22 07/19/23 History tablet,extended release 24 hr B12 Active 1,000 mcg PO DAILY 07/19/23 07/19/23 History meclizine 25 mg tablet 25 mg PO TID PRN DIZZY 07/19/23 07/19/23 History Past Med/Surg History Problem List (Updated 07/20/23 @ 01:35 by Dillan Villaseñor MD) Left bundle branch block (LBBB) (Acute) Recurrent falls (Acute) Dysphagia Abnormal LFTs (Acute 12/26/12) Bronchitis (Acute) Elevated liver function tests (Acute) HTN (hypertension) (Acute 12/26/12) Hyperbilirubinemia (Acute) Jaundice (Acute) Post-operative state (Acute) Post-operative state Encounter for pre-operative examination Dysphagia Hematochezia Dysphagia Lumbar stenosis with neurogenic claudication Medical History History of shingles over 10 yrs ago History of prostate cancer RADIATION ONLY 2010 Dysphagia Anxiety and depression Spinal stenosis Osteoarthritis Degenerative disc disease Chronic back pain Chronic kidney disease, stage 3 follows with [facility] GERD (gastroesophageal reflux disease) History of esophageal dilatation Hypothyroidism Radiation proctitis Hearing deficit Stroke 2011--no deficits, no neurologist Hyperlipidemia Cardiac murmur FOLLOWS WITH DR. HITCHCOCK Sleep apnea cpap Surgical History History of craniotomy X 2 (AT [facility])---d/t hemorrhagic stroke and for a pseudomeningocele repair History of anesthesia reaction woke up paranoid and last for 3 days after both brain surgeries History of total left hip replacement History of total right hip replacement History of prostate biopsy History of colonoscopy History of esophagogastroduodenoscopy (EGD) History of appendectomy History of phacoemulsification of cataract of both eyes with intraocular lens implantation bilat History of tooth extraction all teeth Family History Mother Family history of diabetes mellitus Other No family history of adverse response to anesthesia Social History Smoking Status: Former smoker Tobacco Type: Cigarettes Second Hand Exposure: No; Do You Dip or Chew Tobacco: No; Tobacco Cessation Education Requested by Patient: No Hx Alcohol Use: No Hx Substance Use: No Preferred Language: Divehi Communication Ability: Effective Forester Silviculture Required: No Beliefs That Will Affect Care: None Current Living Situation: Spouse Other Information That Helps Us Care for You: No Feels Safe at Home: Yes Safety Concerns: Feels Safe At This Time Assistive Devices: Cane, Denture - Upper, Denture - Lower, Glasses and Walker Review of Systems Review of Systems: Could not be reliably obtained secondary to cognitive impairment Physical Exam Physical Exam: GENERAL: Lethargic, no respiratory distress SKIN: Pallor, warm HEENT: Partial alopecia, pale palpebral conjunctivae, no ptosis, dry buccal mucosa NECK : Supple, no tenderness CHEST : CTA, no tenderness HEART : RRR, systolic murmur ABDOMEN: Some distention, nontender EXTREMITIES : No LE swelling/tenderness, no other conspicuous deformities noted NEUROLOGIC : Lethargic, no facial asymmetry, slightly hard of hearing, gait and stance not assessed Results & Data Results & Data Vital Signs (Past 12 Hours) Vital Signs Pulse Pulse Resp BP BP Pulse Ox O2 Del Method 07/19/23 20:00 65 18 166/85 H 95 Room Air 07/19/23 19:02 70 07/19/23 17:49 68 18 177/83 H 95 Room Air Laboratory Results Laboratory Results WBC 3.77 K/ul (4.8-10.8) L 07/19/23 18:10 RBC 4.17 M/uL (4.70-6.10) L 07/19/23 18:10 Hgb 12.9 g/dl (14.0-18.0) L 07/19/23 18:10 Hct 38.4 % (42.0-52.0) L 07/19/23 18:10 MCV 92.1 fL (80.0-100.0) 07/19/23 18:10 MCH 30.9 pg (25.0-34.0) 07/19/23 18:10 MCHC 33.6 g/dL (32.0-36.0) 07/19/23 18:10 RDW Std Deviation 42.5 fL (36.4-46.3) 07/19/23 18:10 RDW Coeff of Darrick 12.6 % (11.5-14.5) 07/19/23 18:10 Plt Count 181 K/uL (130-400) 07/19/23 18:10 MPV 10.8 fL (9.4-12.4) 07/19/23 18:10 Immature Gran % (Auto) 0.3 % 07/19/23 18:10 Neut % (Auto) 46.7 % 07/19/23 18:10 Lymph % (Auto) 29.4 % 07/19/23 18:10 [place] % (Auto) 13.0 % 07/19/23 18:10 Eos % (Auto) 9.3 % 07/19/23 18:10 Baso % (Auto) 1.3 % 07/19/23 18:10 Neut # (Auto) 1.76 K/uL (1.40-6.50) 07/19/23 18:10 Lymph # (Auto) 1.11 K/uL (1.20-3.40) L 07/19/23 18:10 [place] # (Auto) 0.49 K/uL (0.11-0.59) 07/19/23 18:10 Eos # (Auto) 0.35 K/uL (0.00-0.50) 07/19/23 18:10 Baso # (Auto) 0.05 K/uL (0.00-0.20) 07/19/23 18:10 Immature Gran # (Auto) 0.01 K/uL (0.01-0.20) 07/19/23 18:10 PT 10.3 Seconds (9.0-12.0) 07/19/23 18:10 INR 0.9 (0.9-1.1) 07/19/23 18:10 APTT 25 Seconds (21-31) 07/19/23 18:10 PTT Ratio 0.9 07/19/23 18:10 Sodium 139 mmol/L (136-145) 07/19/23 18:10 Potassium 3.9 mmol/L (3.5-5.1) 07/19/23 18:10 Chloride 107 mmol/L (98-107) 07/19/23 18:10 Carbon Dioxide 27 mmol/L (21-32) 07/19/23 18:10 Anion Gap 5 (3-11) 07/19/23 18:10 BUN 15 mg/dl (6-23) 07/19/23 18:10 Creatinine 1.14 mg/dl (0.6-1.4) 07/19/23 18:10 Est Cr Clr Drug Dosing Not Reportable 07/19/23 18:10 Est GFR ( Amer) 66.6 ml/min 07/19/23 18:10 Est GFR (Non-Af Amer) 57.5 ml/min 07/19/23 18:10 BUN/Creatinine Ratio 13.2 (10-20) 07/19/23 18:10 Glucose 105 mg/dl (70-99(Fasting)) H 07/19/23 18:10 Calcium 9.5 mg/dl (8.6-10.3) 07/19/23 18:10 Magnesium 1.8 mg/dl (1.7-2.4) 07/19/23 18:10 Troponin I High Sens 12.6 pg/ml (0-20) 07/19/23 18:[address] 07/19/23 17:54 CT cervical spine wo con CLINICAL HISTORY: 88 years-old Male with falls, hit head. Acute head and neck injury status post fall COMPARISON: 12/02/2022 TECHNIQUE: Multiple axial CT images of the cervical spine were obtained without contrast. A dose lowering technique was utilized adhering to the principles of ALARA. FINDINGS: Left cerebellar encephalomalacia. Left suboccipital craniectomy. Demineralized appearance of the bones. Multilevel changes appear similar to prior including severe disc space narrowing at C6-C7 with moderate intervertebral disc space narrowing and severe multilevel facet arthrosis. There is unchanged grade 1 anterolisthesis C5 on C6 which is likely secondary to the chronic facet disease. No acute cervical spine fracture or subluxation. There is mild superior endplate compression involving the T3 vertebral body without retropulsion, likely chronic. Numerous dental caries with missing teeth and periapical cysts. The lung apices are clear without pneumothorax. There are a few subpleural blebs of the lung apices. Unremarkable soft tissues. IMPRESSION: No acute cervical spine fracture or subluxation. ACT 112: Negative or not required by law. The above report was generated using voice recognition software. It may contain grammatical, syntax or spelling errors. Electronically signed by: Boyd Domingo M.D. 07/19/2023 6:[address] 07/19/23 17:55 CT head/brain wo con CLINICAL HISTORY: 88 years-old Male with falls, hit head. Acute head injury status post fall TECHNIQUE: Multiple axial CT images of the head were obtained without contrast. A dose lowering technique was utilized adhering to the principles of ALARA. CT DOSE: 1223.33 mGy.cm COMPARISON: CT cervical spine of same day, and CT 12/02/2022 FINDINGS: No acute intracranial hemorrhage, midline shift, intracranial mass, acute territorial ischemia or abnormal extra-axial collection. Involutional changes with chronic microvascular ischemic disease. Cerebral vascular calcifications. Left cerebellar encephalomalacia. Unchanged ventriculomegaly, likely an extra- axial basis. Left suboccipital craniotomy. No acute calvarial fracture. The paranasal sinuses, mastoid air cells, and middle ear cavities are clear. IMPRESSION: 1. No acute intracranial abnormality. 2. Chronic findings as above. ACT 112: Negative or not required by law. The above report was generated using voice recognition software. It may contain grammatical, syntax or spelling errors. Electronically signed by: Boyd Domingo M.D. 07/19/2023 6:42 PM Diagnostic Findings EKG as per my interpretation :Rate 70, NSR, LAD, LAFB, LBBB, LVH
[2023-07-19] MEDS ORDERED: PROMETHAZINE HCL 6.25 MG in SODIUM CHLORIDE 0.9% 50 ML IV PRN (21:11)
[2023-07-19] MEDS ORDERED: ATROPINE SULFATE 0.1 MG/ML 10ML SYR IV PRN (21:12)
[2023-07-19] MEDS: LIDOCAINE 5% 1 PATCH TD SCH (21:32)
[2023-07-19] MEDS ORDERED: ACETAMINOPHEN 500 MG TAB PO PRN (22:33)
[2023-07-19] MEDS ORDERED: GLUCOSE 10 TAB/TUBE PO PRN (22:33)
[2023-07-19] MEDS ORDERED: GLUCAGON FOR INJ 1 MG VIAL SQ PRN (22:33)
[2023-07-19] MEDS ORDERED: DEXTROSE 50% 50 ML SYRINGE IV PRN (22:33)
[2023-07-19] MEDS ORDERED: CARBOHYDRATES FOR HYPOGLYCEMIA PO PRN (22:33)
[2023-07-19] MEDS ORDERED: GLUCOSE 40% GEL 15 GM TUBE PO PRN (22:33)
[2023-07-19] MEDS: INSULIN ASPART PER UNIT CHARGE SC SCH (22:39)
--- NOTE | 2023-07-20 01:35 | Emergency Department Note ---
History of Present Illness General Chief complaint: Fall Stated complaint: FALL Time Seen by Provider: 07/19/23 18:12 History of Present Illness Provider complaint: Fall Onset (ago): day(s) 10 Associated symptoms: + headaches 88-year-old male presents emergency department with for fall. reports that the patient has fallen 3 times in the last 10 days. is concerned that the patient hit his head and has a brain bleed. Patient reports no symptoms at this time. No headache no neck pain no nausea vomiting diarrhea abdominal pain chest pain difficulty breathing. reports that his symptoms began after his PCP switched his medications from Cymbalta to Lyrica. Home Medications Medication Instructions Recorded Confirmed Type cholecalciferol (vitamin D3) 25 1,000 unit PO QPM 08/21/18 07/19/23 History mcg (1,000 unit) tablet (Vitamin D3) levothyroxine 75 mcg tablet 75 mcg PO QAM 08/21/18 07/19/23 History multivitamin 1 tab PO QAM 08/21/18 07/19/23 History nitroglycerin 0.4 mg sublingual 0.4 mg sublingual UD PRN Angina 08/21/18 07/19/23 History tablet omeprazole 20 mg tablet,delayed 20 mg PO QAM 08/21/18 07/19/23 History release tamsulosin 0.4 mg capsule 0.4 mg PO QAM 08/21/18 07/19/23 History finasteride 5 mg tablet 5 mg PO QAM 10/02/19 07/19/23 History acetaminophen 500 mg tablet 500 mg PO Q6H PRN Pain 02/23/22 07/19/23 History duloxetine 60 mg capsule,delayed 60 mg PO QAM 02/23/22 07/19/23 History release sprinkle rosuvastatin 10 mg tablet 10 mg PO QDL 02/23/22 07/19/23 History metoprolol succinate 50 mg 50 mg PO QAM 12/02/22 07/19/23 History tablet,extended release 24 hr B12 Active 1,000 mcg PO DAILY 07/19/23 07/19/23 History meclizine 25 mg tablet 25 mg PO TID PRN DIZZY 07/19/23 07/19/23 History Allergies Allergy/AdvReac Type Severity Reaction Status Date / Time clindamycin Allergy Unknown unknown--per Verified 07/19/23 20:17 special care hospital record amoxicillin AdvReac Severe JAUNDICE Verified 07/19/23 20:17 clavulanic acid AdvReac Severe JAUNDICE Verified 07/19/23 20:17 dicyclomine [From Bentyl] AdvReac Intermediate dizziness, Verified 07/19/23 20:17 light headedness isosorbide AdvReac Intermediate PAIN IN Verified 07/19/23 20:17 LIMBS DIARRHEA oxycodone AdvReac Intermediate Confusion Verified 07/19/23 20:17 pregabalin [From Lyrica] AdvReac Intermediate Confusion Verified 07/19/23 21:13 Past Med/Surg History Problem List (Updated 07/20/23 @ 01:35 by Dillan Villaseñor MD) Left bundle branch block (LBBB) (Acute) Recurrent falls (Acute) Dysphagia Abnormal LFTs (Acute 12/26/12) Bronchitis (Acute) Elevated liver function tests (Acute) HTN (hypertension) (Acute 12/26/12) Hyperbilirubinemia (Acute) Jaundice (Acute) Post-operative state (Acute) Post-operative state Encounter for pre-operative examination Dysphagia Hematochezia Dysphagia Lumbar stenosis with neurogenic claudication Medical History History of shingles over 10 yrs ago History of prostate cancer RADIATION ONLY 2010 Dysphagia Anxiety and depression Spinal stenosis Osteoarthritis Degenerative disc disease Chronic back pain Chronic kidney disease, stage 3 follows with [facility] GERD (gastroesophageal reflux disease) History of esophageal dilatation Hypothyroidism Radiation proctitis Hearing deficit Stroke 2011--no deficits, no neurologist Hyperlipidemia Cardiac murmur FOLLOWS WITH DR. 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 History of anesthesia reaction woke up paranoid and last for 3 days after both brain surgeries History of total left hip replacement History of total right hip replacement History of prostate biopsy History of colonoscopy History of esophagogastroduodenoscopy (EGD) History of appendectomy History of phacoemulsification of cataract of both eyes with intraocular lens implantation bilat History of tooth extraction all teeth Family History Mother Family history of diabetes mellitus Other No family history of adverse response to anesthesia Social History Smoking Status: Former smoker Second Hand Exposure: No; Do You Dip or Chew Tobacco: No; Hx Alcohol Use: No Hx Substance Use: No Preferred Language: Somali Communication Ability: Effective 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 Beliefs That Will Affect Care: None Current Living Situation: Spouse Feels Safe at Home: Yes Assistive Devices: Cane, Denture - Upper, Denture - Lower and Glasses Physical Exam Vital Signs Vital Signs - 24 hr 07/19/23 17:49 07/19/23 19:02 07/19/23 20:00 Pulse Rate 68 70 Pulse Rate [Apical] 65 Pulse Rhythm [Apical] Regular Respiratory Rate 18 18 Respiratory Effort / Characteristics Non-Labored Spontaneous Non-Labored Respiratory Depth Normal Normal Blood Pressure 177/83 H Blood Pressure [Right Arm] 166/85 H Blood Pressure Mean 114 Blood Pressure Mean [Right Arm] 112 Pulse Oximetry 95 95 Oxygen Delivery Method Room Air Room Air Sepsis Recent Fever Within 48 Hours No Sepsis New/Unexplained Change in Mental Status No Sepsis Action Taken by Nursing No Action Required Physical Exam GENERAL: He is oriented to person, place, and time. He appears well-developed and well-nourished. He does not appear distressed. HENT: Exam performed. - Head: Normocephalic and atraumatic. - Right Ear: External ear normal. No mastoid erythema. Morales sign negative - Left Ear: External ear normal. No mastoid erythema. Morales sign negative - Mouth/Throat: The oropharynx is clear and moist. No trismus in the jaw. No dental abscesses or uvula swelling. No oropharyngeal exudate or tonsillar abscesses. EYES: Conjunctivae and EOM are normal. Pupils are equal, round, and reactive to light. Right eye exhibits no discharge. Left eye exhibits no discharge. No scleral icterus. NECK: Normal range of motion. Neck supple. No JVD present. No spinous process tenderness present. CV: Normal rate, regular rhythm, normal heart sounds and intact distal pulses. There is no peripheral edema. Palpable radial pulses bue. PULM/CHEST: Effort normal and breath sounds normal. No respiratory distress. No stridor. He has no wheezes. He has no rales. - Chest Wall: He exhibits no tenderness. ABD: The abdomen is soft. He has no distension. No mass is present. There is no tenderness. There is no rebound, no guarding, no Regalado's sign and no tenderness at McBurney's point. Rovsig negative. MUSC/SKEL: Pelvis stable. No C, T, or L-spine tenderness. NEURO: Motor and sensation grossly intact. Course Course 1811: The patient was evaluated in room D1A. A complete history and physical exam was performed Cardiac monitoring: An order was placed for continuous cardiac monitoring. The monitor shows a rate of 70 with sinus rhythm interpreted by ga 1900: Vital signs stable. Labs within normal limits. Imaging shows no traumatic findings. Patient does have a new left bundle branch block on EKG. [facility]. Administered Medications Sodium Chloride (Nss) 1,000 mls @ 50 mls/hr IV .Q20H ONE Stop: 07/20/23 15:36 Last Admin: 07/19/23 20:12 Dose: 50 mls/hr Documented By: ADOLFOK Insulin Aspart (Insulin Aspart Per Unit Charge) 0 units SC ACHS HEATHER Stop: 08/18/23 22:32 Last Admin: 07/19/23 22:39 Dose: Not Given Documented By: CR Lidocaine (Lidocaine 5% 1 Patch) 1 patch TD HS HEATHER Stop: 08/18/23 21:14 Last Admin: 07/19/23 21:32 Dose: 1 patch Documented By: HB Medical Decision Making Laboratory Data Attestation: I reviewed the patient's lab results. 07/19/23 18:10 07/19/23 18:10 Lab Results 07/19/23 Range/Units 18:10 WBC 3.77 L (4.8-10.8) K/ul RBC 4.17 L (4.70-6.10) M/uL Hgb 12.9 L (14.0-18.0) g/dl Hct 38.4 L (42.0-52.0) % MCV 92.1 (80.0-100.0) fL MCH 30.9 (25.0-34.0) pg MCHC 33.6 (32.0-36.0) g/dL RDW Std Deviation 42.5 (36.4-46.3) fL RDW Coeff of Darrick 12.6 (11.5-14.5) % Plt Count 181 (130-400) K/uL MPV 10.8 (9.4-12.4) fL Immature Gran % (Auto) 0.3 % Neut % (Auto) 46.7 % Lymph % (Auto) 29.4 % Mercer % (Auto) 13.0 % Eos % (Auto) 9.3 % Baso % (Auto) 1.3 % Neut # (Auto) 1.76 (1.40-6.50) K/uL Lymph # (Auto) 1.11 L (1.20-3.40) K/uL Mercer # (Auto) 0.49 (0.11-0.59) K/uL Eos # (Auto) 0.35 (0.00-0.50) K/uL Baso # (Auto) 0.05 (0.00-0.20) K/uL Immature Gran # (Auto) 0.01 (0.01-0.20) K/uL PT 10.3 (9.0-12.0) Seconds INR 0.9 (0.9-1.1) APTT 25 (21-31) Seconds PTT Ratio 0.9 Sodium 139 (136-145) mmol/L Potassium 3.9 (3.5-5.1) mmol/L Chloride 107 (98-107) mmol/L Carbon Dioxide 27 (21-32) mmol/L Anion Gap 5 (3-11) BUN 15 (6-23) mg/dl Creatinine 1.14 (0.6-1.4) mg/dl Est Cr Clr Drug Dosing Not Reportable Est GFR ( Amer) 66.6 ml/min Est GFR (Non-Af Amer) 57.5 ml/min BUN/Creatinine Ratio 13.2 (10-20) Glucose 105 H (70-99(Fasting)) mg/dl Calcium 9.5 (8.6-10.3) mg/dl Magnesium 1.8 (1.7-2.4) mg/dl Troponin I High Sens 12.6 (0-20) pg/ml Lyme Disease Screen Negative (Negative) Imaging Data Attestation: I personally reviewed and interpreted this imaging study as follows: My Impression: Chest x-ray negative. Airway clear. No pneumothorax. No consolidation. No cardiomegaly or cephalization.. No free air under the diaphragm. No fractures of the skeletal structures. Radiologist's Impression: Cervical Spine CT 07/19/23 17:54 CT cervical spine wo con CLINICAL HISTORY: 88 years-old Male with falls, hit head. Acute head and neck injury status post fall COMPARISON: 12/02/2022 TECHNIQUE: Multiple axial CT images of the cervical spine were obtained without contrast. A dose lowering technique was utilized adhering to the principles of ALARA. FINDINGS: Left cerebellar encephalomalacia. Left suboccipital craniectomy. Demineralized appearance of the bones. Multilevel changes appear similar to prior including severe disc space narrowing at C6-C7 with moderate intervertebral disc space narrowing and severe multilevel facet arthrosis. There is unchanged grade 1 anterolisthesis C5 on C6 which is likely secondary to the chronic facet disease. No acute cervical spine fracture or subluxation. There is mild superior endplate compression involving the T3 vertebral body without retropulsion, likely chronic. Numerous dental caries with missing teeth and periapical cysts. The lung apices are clear without pneumothorax. There are a few subpleural blebs of the lung apices. Unremarkable soft tissues. IMPRESSION: No acute cervical spine fracture or subluxation. ACT 112: Negative or not required by law. The above report was generated using voice recognition software. It may contain grammatical, syntax or spelling errors. Electronically signed by: Boyd Domingo M.D. 07/19/2023 6:[address] 07/19/23 17:55 CT head/brain wo con CLINICAL HISTORY: 88 years-old Male with falls, hit head. Acute head injury status post fall TECHNIQUE: Multiple axial CT images of the head were obtained without contrast. A dose lowering technique was utilized adhering to the principles of ALARA. CT DOSE: 1223.33 mGy.cm COMPARISON: CT cervical spine of same day, and CT 12/02/2022 FINDINGS: No acute intracranial hemorrhage, midline shift, intracranial mass, acute territorial ischemia or abnormal extra-axial collection. Involutional changes with chronic microvascular ischemic disease. Cerebral vascular calcifications. Left cerebellar encephalomalacia. Unchanged ventriculomegaly, likely an extra- axial basis. Left suboccipital craniotomy. No acute calvarial fracture. The paranasal sinuses, mastoid air cells, and middle ear cavities are clear. IMPRESSION: 1. No acute intracranial abnormality. 2. Chronic findings as above. ACT 112: Negative or not required by law. The above report was generated using voice recognition software. It may contain grammatical, syntax or spelling errors. Electronically signed by: Boyd Domingo M.D. 07/19/2023 6:42 PM ECG Data Attestation: I personally reviewed and interpreted this ECG as follows: Rate (beats per minute): 72 Rhythm: + normal sinus ECG Intervals/blocks: + First degree AV block and + Left bundle branch block Comparison ECG Date: from (November 2022) Change: the following changes noted (New left bundle branch block) Additional Comments: [place] 206 QRS 138 QTc 483. sgarbosa negative MDM Narrative 181: The patient was evaluated in room D1A. A complete history and physical exam was performed Cardiac monitoring: An order was placed for continuous cardiac monitoring. The monitor shows a rate of 70 with sinus rhythm interpreted by me 1900: Vital signs stable. Labs within normal limits. Imaging shows no traumatic findings. Patient does have a new left bundle branch block on EKG. [facility] Impression & Plan Recurrent falls, Left bundle branch block (LBBB) Discharge Plan Visit Data Chief Complaint: Fall Stated Complaint: FALL ED Provider: Dillan Villaseñor Discharge Problem: Recurrent falls, Left bundle branch block (LBBB) Patient Disposition: Admitted As Inpatient Discharge Instructions Interventions: ED Discharge Assessment Last Done: 07/19/23 21:57
[2023-07-20 03:03] LABS: Appearance Urine Clear (Clear); Bilirubin Urine Negative (Negative); Blood Urine Negative (Negative); Color Urine Yellow; Glucose Urine UA Negative (Negative); Ketones Urine Negative (Negative); Leukocyte Esterase Urine Negative (Negative); Nitrite Urine Negative (Negative); Protein Urine Negative (Negative); Specific Gravity Urine 1.013 (1.000-1.030); Urobilinogen Urine Negative (Negative)
[2023-07-20] MEDS: LEVOTHYROXINE SODIUM 75 MCG TABLET PO SCH (06:01)
[2023-07-20 06:44] LABS: Basophils # (auto) 0.05 K/uL (0.00-0.20); Eosinophils # (auto) 0.42 K/uL (0.00-0.50); Eosinophils % (auto) 8.5 %; Hematocrit (blood only) 35.6 % (42.0-52.0); Hemoglobin 12.4 g/dl (14.0-18.0); Immature Granulocytes # (auto) 0.01 K/uL (0.01-0.20); Immature Granulocytes % (auto) 0.2 %; Lymphocytes # (auto) 1.14 K/uL (1.20-3.40); Lymphocytes % (auto) 23.1 %; Mean Corpuscular Hemoglobin 31.5 pg (25.0-34.0); Mean Corpuscular Hgb Conc 34.8 g/dL (32.0-36.0); Mean Corpuscular Volume 90.4 fL (80.0-100.0); Monocytes # (auto) 0.65 K/uL (0.11-0.59); Monocytes % (auto) 13.2 %; Neutrophils # (auto) 2.66 K/uL (1.40-6.50); Platelet Count 162 K/uL (130-400); RDW Coefficient of Variation 12.4 % (11.5-14.5); RDW Standard Deviation 40.9 fL (36.4-46.3); Red Blood Count 3.94 M/uL (4.70-6.10); White Blood Count 4.93 K/ul (4.8-10.8)
[2023-07-20 06:46] LABS: BUN Creatinine Ratio 12.7 (10-20); Calcium 9.2 mg/dl (8.6-10.3); Creatinine Clr Calc Pharmacy 51.9 ml/min; Est GFR (African American) 69.6 ml/min; Potassium 4.1 mmol/L (3.5-5.1)
[2023-07-20 06:58] LABS: Estimated Average Glucose 131 mg/dl; Hemoglobin A1C 6.2 % (4.5-5.6)
--- NOTE | 2023-07-20 06:58 | XRay Report ---
SINGLE VIEW CHEST CLINICAL HISTORY: Generalized weakness. FINDINGS: 2 AP, portable, upright chest radiographs are compared to study dated 11/29/2022. The heart is enlarged noting atherosclerotic calcification of the thoracic aorta. The pulmonary vasculature is noncongested. Chronic interstitial thickening is similar to previous. There is mild bibasilar atelec tasis. The lungs and pleural spaces are otherwise clear. No pneumothorax is seen. The skeletal struct ures are osteopenic. The bony thorax is grossly intact. IMPRESSION: Cardiomegaly with no active disease in the chest. ACT 112: Negative or not required by law. Electronically signed by: Fran Camp M.D. 07/20/2023 6:56 AM
[2023-07-20] MEDS ORDERED: ENOXAPARIN INJ 40 MG/0.4 ML SYR SQ SCH (09:00)
[2023-07-20] MEDS: DULoxetine HCL 60 MG CAP PO SCH (09:44)
[2023-07-20] MEDS: TAMSULOSIN HCL 0.4 MG CAP PO SCH (09:44)
[2023-07-20] MEDS: MULTIVITAMIN TAB PO SCH (09:44)
[2023-07-20] MEDS: PANTOprazole 40 MG TAB PO SCH (09:44)
[2023-07-20] MEDS: FINASTERIDE 5 MG TAB PO SCH (09:44)
[2023-07-20] MEDS: ROSUVASTATIN CALCIUM 10 MG TAB PO SCH (12:22)
--- NOTE | 2023-07-20 15:31 | Electrocardiogram Report ---
Test Reason : Blood Pressure : / mmHG Vent. Rate : 072 BPM Atrial Rate : 072 BPM P-R Int : 206 ms QRS Dur : 138 ms QT Int : 442 ms P-R-T Axes : 061 -28 104 degrees QTc Int : 483 ms Normal sinus rhythm Possible Left atrial enlargement Left bundle branch block Abnormal ECG When compared with ECG of 02-DEC-2022 21:10, Left bundle branch block is now Present Borderline criteria for Anterior infarct are no longer Present Confirmed by He Verdugo ([id number]) on 07/20/2023 3:31:04 PM Referred By: REFERRED SELF Confirmed By:Rohit Verdugo
--- NOTE | 2023-07-20 15:50 | Hospitalist Progress Note ---
Date of Service July 20, 2023 Assessment & Plan (1) Recurrent falls: (2) Adverse effects of medication: (3) Drug-induced bradycardia: (4) HTN (hypertension): (5) Alteration in appetite: Plan Patient seems to have improved without recurrent symptoms. However he remains significantly ill and needing hospitalization to monitor heart rate, and for recurrence of his symptoms. High risk for returning home at this time with his frequent falls. Continue with physical therapy and Occupational Therapy evaluation. Reviewing patient's history high suspicion patient's increasing falls due to starting Lyrica, this can cause abnormal coordination, dizziness and some somnolence. Agree with holding Lyrica Patient has not had significant bradycardia here. Will continue to hold beta- kat, may need to use alternate medication for blood pressure control Continue to monitor orthostatic vital signs Continue telemetry monitoring to rule out arrhythmia Echocardiogram noted no need for immediate intervention no significant aortic stenosis. Patient also reported that he was not eating regularly. This time no evidence of hypoglycemia, encouraged regular meals Attempted to contact , no answer Admission and Anticipated Discharge Date Admission Date: July 19, 2023 Subjective Patient reports feeling a bit better this morning. Denies any lightheadedness or dizziness Physical Exam Physical Exam: Constitutional: Alert, sitting in chair HEENT: Mucous membranes moist. Lungs: Clear to auscultation, decreased, no wheezes rales or rhonchi CV: S1-S2, regular, systolic murmur Abdomen: Soft, nontender, nondistended Extremities: No significant edema Neuro: No focal deficits Psych: Cooperative, normal mood Results & Data Results & Data Vital Signs (Past 12 Hours) Vital Signs Temp Pulse Pulse Resp BP Pulse Ox O2 Del Method 07/20/23 15:31 36.8 C 18 128/70 95 Room Air 07/20/23 11:27 36.8 C 75 16 138/81 95 Room Air 07/20/23 08:00 79 07/20/23 07:54 36.4 C L 73 18 157/97 H 95 Room Air Diagnostic Findings Reviewed imaging, laboratory and diagnostic studies. Pertinent findings as below. Echocardiogram report reviewed, no significant or severe aortic stenosis, ejection fraction normal, left ventricular hypertrophy Hemoglobin 12.4 Electrolytes stable
--- OUTSIDE RECORDS SUMMARY | 2023-07-20 22:50 | External Medical Summary | Summary of Care ---
Author Name Unknown Organization [facility] Address [address] [facility] [place] [address] Phone [phone] Care Team Providers Care Business Development Associate Name Role Phone Jonathan Lan MD Primary Care Provider [phone] Reason for Visit * Reason Onset Date Comments Advice 05/11/2023 Encounter Details Date Type Department Care Team (Late st Contact Info) Description 05/11/2023 Telephone [facility] [address] [place] [address] Jonathan Lan MD [address] [place] [address] Advice Allergies Active Allergy Reactions Criticality Noted Date Comments Amoxicillin High 03/02/2022 Other reaction(s): JAUNDICE Amoxicillin-Pot Clavulanate Liver complications (Please comment) High 01/06/2013 Was hospitalized for liver problems associated with augmentin Dicyclomine Hcl 09/28/2016 Causes light-headed and dizziness Clavulanic Acid High 03/02/2022 Other reaction(s): JAUNDICE Clindamycin 02/06/2018 Dicyclomine High 03/02/2022 Other reaction(s): dizziness, light headedness Gabapentin Psych complications 05/10/2022 Isosorbide Nitrate 2015 Diarrhea, fatigue, myalgias Isosorbide High 03/02/2022 Other reaction(s): PAIN IN LIMBS DIARRHEA Oxycodone High 03/02/2022 Other reaction(s): Confusion documented as of this encounter (statuses as of 05/14/2023) Medications Medication Sig Dispensed Refills Start Date End Date Status MULTIVITAMINS PO TABS daily 0 Act josé luis VITAMIN D 1000 UNITS PO TABS 1 tab daily 0 Active Acetaminophen 500 MG Oral Tablet Take 1 Tablet by mouth every 6 hours as needed. 0 Active Tamsulosin HCl 0.4 MG Oral Capsule (Flomax) TAKE 1 CAPSULE BY MOUTH EVERY DAY 90 Capsule 3 08/07/2022 Active Vitamin B12 1000 MCG Oral Tablet Extended ReleaseIndications:Vi tamin B12 deficiency Take one daily 0 08/23/2022 Active Finasteride 5 MG Oral Tablet (Proscar)Indications: Hematuria, gross,BPH with obstruction/lower urinary tract symptoms TAKE 1 TABLET BY MOUTH EVERY DAY IN THE MORNING 90 Tablet 3 09/05/2022 Active Rosuvastatin Calcium 10 MG Oral Tablet (Crestor) TAKE 1 TABLET BY MOUTH EVERY DAY 90 Tablet 3 09/21/2022 Active Omeprazole 20 MG Oral Capsule Delayed Release (PriLOSEC)Indications :Esophagitis TAKE 1 CAP BY MOUTH DAILY. 1 HOUR BEFORE THE FIRST MEAL OF THE DAY 90 Capsule 2 10/13/2022 Active Levothyroxine Sodium 75 MCG Oral Tablet (Levoxyl)Indications: Acquired hypothyroidism TAKE 1 TABLET BY MOUTH DAILY. (AT LEAST 30 MIN PRIOR TO BREAKFAST OR OTHER MEDS) 90 Tablet 2 10/13/2022 Active DULoxetine HCl 60 MG Oral Capsule Delayed Release Particles (Cymbalta)Indications :Left sided sciatica TAKE 1 CAPSULE BY MOUTH IN THE MORNING. DO NOT CUT, CRUSH OR CHEW. 90 Capsule 1 01/10/2023 Active Metoprolol Succinate ER 25 MG Oral Tablet Extended Release 24 Hour (toPROL XL)Indications:HTN, goal below 140/90 Take 1 Tablet by mouth in the morning. 90 Tablet 3 05/08/2023 Active Blood Glucose Test In Vitro StripIndications:Diab etes mellitus without complication (HCC) Check glucose daily E 11.9 100 Strip 3 05/14/2023 Active LancetsIndications:Di abetes mellitus without complication (HCC) Use as directed- once daily E11.9 100 Each 3 05/14/2023 Active JuxinliTouch Verio w/Device KitIndications:Diabet es mellitus without complication (HCC) Use once daily E11.9 1 Kit 0 05/14/2023 Active documented as of this encounter (statuses as of 05/14/2023) Active Problems Problem Noted Date Diagnosed Date History of subdural hematoma 05/08/2023 Carotid stenosis, right 02/28/2023 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 02/28/2023 Fall 12/03/2022 Diabetes mellitus without complication 2 Stage 3a chronic kidney disease 12/15/2019 Overview: Per CKD protocol Gastroparesis 03/19/2017 History of adrenal insufficiency 08/23/2016 Radiation proctitis 06/29/2016 Lumbago 11/27/2014 Hip joint replacement status 11/27/2014 Vitamin D deficiency 05/27/2014 Hypothyroidism 04/11/2013 Severe obstructive sleep apnea 12/12/2012 Overview: 02/2013 -- CPAP auto 13 cwp Split night study 12/05/12 -- AHI of 81, titrated to 10, titration suboptimal Care Plus Oxygen IMPOTENCE, ORGANIC ORIGN 05/27/2012 Left sided sciatica 04/12/2012 Dyslipidemia, goal LDL below 100 06/21/2011 Internal hemorrhoids 02/08/2006 ADVANCE DIRECTIVE INFORMATION 03/28/2005 Overview: No, Advance Directive brochure given to patient at prior appointment. INHIBITED SEX EXCITEMENT 03/18/2004 HTN, goal below 140/90 02/27/2002 Diaphragmatic hernia Esophagitis Overview: ICD-10 update of inactive term Malignant neoplasm of prostate Cancer Staging:Clinical: Unsigned Primary localized osteoarthrosis, lower leg Overview: right knee,UOC documented as of this encounter (statuses as of 05/14/2023) Resolved Problems Problem Noted Date Diagnosed Date Resolved Date Subdural hematoma 12/03/2022 05/08/2023 Prediabetes 03/20/2017 11/18/2020 Overview: Per Prediabetes protocol #1 Eczema 04/19/2016 08/02/2016 Kidney disease, chronic, sta ge III (GFR 30-59 ml/min) 07/12/2015 12/18/2019 Overview: Per CKD protocol #1 DM type 2, goal: symptom mgmt 02/13/2013 08/23/2016 Cerebellar hemorrhage, acute 11/01/2011 05/08/2023 CKD (chronic kidney disease), stage III 02/21/2011 04/20/2014 Overview: gfr 54.1 Other specified hypothyroidism 04/26/2006 06/27/2017 Tobacco use disorder 03/18/2004 012 Viral warts 11/15/2010 Overview: ICD-10 update of inactive term IMPOTENCE, ORGANIC ORIGN Obstructive sleep apnea 02/05 Overview: ICD-10 update of inactive term Generalized osteoarthritis 0 02/21/2013 Other seborrheic keratosis 0 08/02/2016 Adrenal insufficiency 2016 documented as of this encounter (statuses as of 05/14/2023) Immunizations Name Administration Dates Next Due COVID-19 mRNA, LNP-s, No Pre serve, 2-Dose Series (Tackk) 01/18/2021,05/13/2020,04/22/2020 Pneumococcal Conjugate Vacc, 13 Valent (Prevnar) 05/27/2014 Pneumococcal Polysaccharide PPV23 (Pneumovax) 06/19/2014 Season Influenza, Quad, PF, Adjuvanted, 65+ Yrs, IM (FLUAD) 11/28/2019 Seasonal Influenza, PF, 6 M & above, IM , (FluLaval or Fluzone) 11/05/2017,11/07/2016 Seasonal Influenza, Quadriva lent Hd (Fluzone Hd) 12/05/2022,12/21/2021,11/25/2020 Seasonal Influenza, Quadriva lent, No Preserve, IM 11/16/2015,11/27/2014 Seasonal Influenza, Split, I IV3, With Preserve, Inj 11/14/2013,11/12/2012,11/02/2011,11/15,11/11/2009,10/21/2008,11/26/2007 ,11/22/2006,12/16/2005 Seasonal Influenza, Trivalen t, Adjuvanted, 65+ yrs 11/19/2018 TD - Tetanus/Diptheria (ADULT) 09/07/2005 TDAP (age 10 and older)(Boostrix) 12/03/2022, documented as of this encounter Social History Tobacco Use Types Packs/Day Years Used Date Smoking Tobacco: Former Cigarettes 1 20 0 02/13/1971 - 02/13/1991 Passive Smoke Exposure: Past Smokeless Tobacco: Former Snuff, Chew Quit: 02/13/2007 Comments:Doesn't chew, use s nuff, or smoke anymore Passive Exposure Comments:Father smoked cigars Alcohol Use Standard Drinks/Week Comments Not Currently 2 (1 standard drink = 0.6 oz pur e alcohol) PHQ-2 Answer Date Recorded PHQ Adult Total Score 0 04/11/2023 Hunger Vital Sign Answer Date Recorded Within the past 12 months, y ou worried that your food would run out before you got the money to buy more. Never true 04/11/19 24 Within the past 12 months, t he food you bought just didn't last and you didn't have money to get more. Never true 04/11/2023 Sex and Gender Information Value Date Recorded Sex Assigned at Male 08/20/2018 11:38 AM EDT Gender Identity Male 08/20/2018 11:38 AM EDT Sexual Orientation Straight 08/20/2018 11 :38 AM EDT Job Start Date Occupation Industry Not on file Not on file Not on file documented as of this encounter Functional Status Functional Status Response Date of Assess ment Are you deaf or do you have serious difficulty hearing? Yes 12/03/2022 Are you blind or do you have serious difficulty seeing, even when wearing glasses? No 12/03/2022 Does this person have seriou s difficulty walking or climbing stairs? Yes-"He's slow, but he can do it."-via 12/03/2022 Do you have difficulty dress ing or bathing? (5 years old or older) No 12/03/2022 Because of a physical, menta l, or emotional condition, do you have difficulty doing errands alone such as visiting a doctor s office or shopping? (15 years old or older) Yes- usually goes with him. 12/03/2022 Cognitive Status Response Date of Assessm ent Because of a physical, menta l, or emotional condition, do you have serious difficulty concentrating, remembering, or making decisions? (5 years old or older) No-Has trouble remembering things when "tired or weak"-via patient's 12/03/2022 documented as of this encounter Miscellaneous Notes * Telephone Encounter - Dara Lema LPN - 05/14/2023 3:34 PM EDT I called and spoke with Duncan and he stated the patients has been giving him Metoprolol 50 mg instead of the new prescription of 25 mg and was causing the patient to be orthostatic. Duncan has instructed her to start the 25 mg as prescribed and asked for them to keep track of his BP. Duncan also asked that a prescription be sent In for the patient for testing glucose strips and lancets, patient currently does not have any. * Telephone Encounter - Raquel Wolfe OSA - 05/11/2023 3:22 PM EDT Duncan Physical therapist from [facility] would like a call back has questions regarding start of care. documented in this encounter Plan of Treatment Upcoming Encounters Date Type Department Care Team (Late st Contact Info) Description 06/25/2023 2:00 PM EDT [facility] Visit [facility] [address] [place] [facility] [id number] Jonathan Lan MD [address] [place] [address] 07/05/2023 3:40 PM EDT Office Visit Neurology [facility] [place] [address] [facility] [place] [address] Riya Mendez MD [address] [facility] [place] [address] 08/01/2023 8:30 AM EDT Procedure Only Endoscopy, [facility] Lucas [address] [place] [address] Yasmin Palma DO [address] [place] [address] 10/31/2023 4:00 PM EDT Office Visit Urology, [facility] [address] [place] [address] Ronan Tejada MD [address] [place] [address] 04/18/2024 2:00 PM EDT Nurse Only Ancillary Department, [place] [address] [place] [address] [place], [facility] [address] [place] [address] Scheduled Procedures Name Priority Associated Diagnoses Date/Ti me COLONOSCOPY FLEXIBLE PROXIMA L DIAGNOSTIC Recall Inflammatory polyps of colon with rectal bleeding Diverticulosis COLONOSCOPY FLEXIBLE PROXIMA L DIAGNOSTIC Recall H/O colonoscopy Health Maintenance Due Date Last Done Comments Zoster Vaccines (1 of 2) 1986 AAA Monitoring 06/22/2020 06/23/2019 CKD PHOS USE SMARTSET 38897 09/20/202209/05, 01/18/2021, 06/23/2019, Additional history exists COVID-19 Vaccine ( season) 2022 01/18/2021, 06/05/2020, 05/13/2020, Additional history exists HbA1c 12/27/2022 06/26/2022, 11/0 07/2019, 12/18/2018, Additional history exists Albumin/Creatinine Ratio 06/27/2023 023, 06/10/2018, 06/26/2017, Additional history exists TSH 06/27/2023 06/26/2022, 09/05, 10/25/2020, Additional history exists CKD HGB USE SMARTSET 74095 02/13/202402/12, 02/12/2023, 12/13/2022, Additional history exists Depression Screening 04/10/2024 04/11/2023 Diabetic Foot Exam 04/10/2024 04/11/2023, 0 03/13/2022, 11/07/2016, Additional history exists Diabetic Eye Exam 04/23/2024 04/24/2023, , 11/25/2020, Additional history exists DTaP,Tdap,and Td Vaccines (3 - Td or Tdap) 12/03/2032 12/03/2022, 11/03/2014, 09/07/2005, Additional history exists Pneumococcal Vaccine: 65+ Years Completed 06/19/2014, 05/27/2014, 09/18/2003 Influenza Vaccine (FLU shot) Completed , 12/21/2021, 11/25/2020, Additional history exists GARDASIL-HPV IMMUNIZATION SERIES Aged Out No longer eligible based on patient's age to complete this topic Hepatitis B Aged Out No longer eligi ble based on patient's age to complete this topic MENINGOCOCCAL (MENACTRA/MENVEO) Aged Out No longer eligible based on patient's age to complete this topic documented as of this encounter Medical Devices Not on filedocumented as of this encounter Visit Diagnoses Diagnosis Diabetes mellitus without complication (HCC)- Primary Type II or unspecified type diabetes mellitus without mention of complication, not stated as uncontrolled documented in this encounter Advance Directives Latest Code Status on File Code Status Date Activated Date Inactivated Comments Full Code 12/03/2022 11:56 AM 12/05/2022 10:43 PM Question Answer Comments Discussion of Advance Directives occurred with: Not Discussed due to patient's condition Code Status History Code Status Date Activated Date Inactivated Comments Full Code 11/01/2011 2:46 AM 11/07/2011 8:53 PM This order reflects the patients wishes and were consensually agreed upon. Question Answer Comments Discussion of Advance Directives occurred with: Patient Does the patient have a Living Will? No Does the patient have Health Care Power of Caterer'S Aide? No Care Teams Business Development Associate Relationship Specialty Start Date End Date Jonathan Lan MD [address] [place] [address] PCP - General Family Medicine 08/15/12 documented as of this encounter
--- OUTSIDE RECORDS SUMMARY | 2023-07-20 22:50 | External Medical Summary | Summary of Care ---
Author Name Unknown Organization [facility] Address [address] [facility] [place] [address] Phone [phone] Care Team Providers Care Front Desk Auxiliary Name Role Phone Jonathan Lan MD Primary Care Provider [phone] Reason for Visit * Reason Comments Return Neuro Neuropathy Encounter Details Date Type Department Care Team (Late st Contact Info) Description 07/05/2023 3:40 PM EDT Office Visit Neurology [facility] [address] [facility] [place] [address] Riya Mendez MD [address] [place] [address] Cognitive changes*; Sensory polyneuropathy Allergies Active Allergy Reactions Criticality Noted Date [...] as of this encounter (statuses as of 07/05/2023) Medications Medication Sig Dispensed Refills Start Date End Date Status MULTIVITAMINS PO TABS daily Active VITAMIN D 1000 UNITS PO TABS 1 tab daily Active Acetaminophen 500 MG Oral Tablet Take 1 Tablet by mouth every 6 hours as needed. Active Tamsulosin HCl 0.4 MG Oral Capsule (Flomax) TAKE 1 CAPSULE BY MOUTH EVERY DAY 90 Capsule 3 08/07/2022 Active Vitamin B12 1000 MCG Oral Tablet Extended ReleaseIndications:V itamin B12 deficiency Take one daily 08/23/2022 Active Finasteride 5 MG Oral Tablet (Proscar)Indications :Hematuria, gross,BPH with obstruction/lower urinary tract symptoms TAKE 1 TABLET BY MOUTH EVERY DAY IN THE MORNING 90 Tablet 3 09/05/2022 Active Rosuvastatin Calcium 10 MG Oral Tablet (Crestor) TAKE 1 TABLET BY MOUTH EVERY DAY 90 Tablet 3 09/21/2022 Active Omeprazole 20 MG Oral Capsule Delayed Release (PriLOSEC)Indication s:Esophagitis TAKE 1 CAP BY MOUTH DAILY. 1 HOUR BEFORE THE FIRST MEAL OF THE DAY 90 Capsule 2 10/13/2022 Active Levothyroxine Sodium 75 MCG Oral Tablet (Levoxyl)Indications :Acquired hypothyroidism TAKE 1 TABLET BY MOUTH DAILY. (AT LEAST 30 MIN PRIOR TO BREAKFAST OR OTHER MEDS) 90 Tablet 2 10/13/2022 Active DULoxetine HCl 60 MG Oral Capsule Delayed Release Particles (Cymbalta)Indication s:Left sided sciatica TAKE 1 CAPSULE BY MOUTH IN THE MORNING. DO NOT CUT, CRUSH OR CHEW. 90 Capsule 1 01/10/2023 Active Metoprolol Succinate ER 25 MG Oral Tablet Extended Release 24 Hour (toPROL XL)Indications:HTN, goal below 140/90 Take 1 Tablet by mouth in the morning. 90 Tablet 3 05/08/2023 Active Meclizine HCl 25 MG Oral Tablet (Antivert)Indication s:Vertigo Take 1 Tablet by mouth 3 times a day as needed for Dizziness. 90 Tablet 1 05/11/2023 Active OneTouch Verio In Vitro Strip (Glucose Blood) Use up to 4 times a day E11.9 100 Strip 11 05/15/2023 Active OneTouch UltraSoft Lancets Use as directed 4 times a day as needed for Hypoglycemia (low sugar) or Hyperglycemia (high sugar). Use up to four times a day as directed 100 Each 2 05/15/2023 Active Blood Glucose Test In Vitro StripIndications:Bella betes mellitus without complication (HCC) Check glucose daily E 11.9 100 Strip 3 05/14/2023 Active LancetsIndications:D iabetes mellitus without complication (HCC) Use as directed- once daily E11.9 100 Each 3 05/14/2023 Active OneTouch Verio w/Device KitIndications:Diabe ilda mellitus without complication (HCC) Use once daily E11.9 1 Kit 05/14/2023 Active Pregabalin 50 MG Oral Capsule (Lyrica)Indications: Right-sided low back pain with right-sided sciatica, unspecified chronicity 1 cap daily x 2 weeks then 1 cap twice daily 60 Capsule 5 06/27/2023 Active documented as of this encounter (statuses as of 07/05/2023) Active Problems Problem Noted Date Diagnosed Date [...] as of this encounter (statuses as of 07/05/2023) Resolved Problems Problem Noted Date Diagnosed Date [...] as of this encounter (statuses as of 07/05/2023) Immunizations Name Administration Dates Next Due COVID-19 mRNA, LNP-s, No Pre serve, 2-Dose Series ([employer]) 01/18/2021,05/13/2020,04/22/2020 Pneumococcal Conjugate Vacc, 13 Valent (Prevnar) [...] on file documented as of this encounter Last Filed Vital Signs Vital Sign Reading Time Taken Comments Blood Pressure 124/70 07/05/2023 3:43 PM EDT Pulse 72 07/05/2023 3:43 PM EDT Temperature 36.7 C (98.1 F) 07/05/2023 3:43 PM ED T Respiratory Rate 16 07/05/2023 3:43 PM EDT Oxygen Saturation 94% 07/05/2023 3:43 PM EDT Inhaled Oxygen Concentration - - Weight 89.4 kg (197 lb 1.6 oz) 07/05/2023 3:43 P M EDT Height - - Body Mass Index 27.49 06/27/2023 5:52 PM EDT documented in this encounter Functional Status Functional Status Response [...] patient's 12/03/2022 documented as of this encounter Progress Notes * Riya Mendez MD - 07/05/2023 4:14 PM EDT CLINIC NOTES Neurology [facility] [place] [address] [place] [address] Parth Jett : 1935 NEUROLOGY OUTPATIENT NOTE 07/05/2023 HISTORY: The patient is referred for consultation by Dr. Lan, who will be receiving a copy of this note. Patient comes today mild cognitive impairment neuropathy possibly related to B12 deficiency and a history of a transien ischemic. The patient that given his history patient has had a traumatic subarachnoid and we had reached out to Neurosurgery and they advised that it was safe to restart aspirin but he had not yet restarted aspirin. Neuropathic symptoms are unchanged. He has had physical therapy3 times he has fallen 6 times in the last 6 months with a variety of different circumstances some which is with not using a cane. He and his think cognitively he is unchanged Past Medical History: Diagnosis Date Acute cerebellar hemorrhage ([facility]) 10/31/11 [facility] transferred to [facility] and decompressed Adrenal insufficiency ([facility]) [facility] Anemia Benign neoplasm of colon 10/10/05 3 X4 mm sessile polyps in rectum Cerebellar hemorrhage, acute ([facility]) 11/01/2011 CKD (chronic kidney disease), stage III ([facility]) 02/21/11 gfr 54.1 Diaphragmatic hernia Diverticulosis of colon 10/10/05 DM type 2, goal: symptom mgmt ([facility]) 02/13/2013 Dyslipidemia, goal LDL below 100 06/21/2011 Esophagitis, unspecified Generalized osteoarthritis GERD (gastroesophageal reflux disease) History of tobacco abuse HTN, goal below 140/90 Hypertension IMPOTENCE, ORGANIC ORIGN 05/27/2012 INHIBITED SEX EXCITEMENT 03/18/2004 Internal hemorrhoids 10/10/05 Left sided sciatica 04/12/2012 Lyme disease 2001 had a possible positive test for Lyme, was treated with something for 30 days, but 2 subsequent Lyme elisas were negative. Malignant neoplasm of prostate ([facility]) 06/10/09 [place] 8 Obstructive sleep apnea (adult) (pediatric) ABDI (obstructive sleep apnea) 12/12/2012 Split night study 12/05/12 showed pretreatment AHI of 81 Titrated to pressure of 10, titration suboptimal. Continued hypopneas. 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, Dr Ruano decompressed Viral warts, unspecified Patient Active Problem List Diagnosis Diaphragmatic hernia Esophagitis HTN, goal below 140/90 INHIBITED SEX EXCITEMENT ADVANCE DIRECTIVE INFORMATION Internal hemorrhoids Malignant neoplasm of prostate (HCC) Primary localized osteoarthrosis, lower leg Dyslipidemia, goal LDL below 100 Left sided sciatica IMPOTENCE, ORGANIC ORIGN Severe obstructive sleep apnea Hypothyroidism Vitamin D deficiency Lumbago Hip joint replacement status Radiation proctitis History of adrenal insufficiency Gastroparesis Stage 3a chronic kidney disease Diabetes mellitus without complication (HCC) Fall Carotid stenosis, right 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 COLONOSCOPY, DIAGNOSTIC (RECTUM) 08/29/2018 adenomatous polyp, radiation proctitis, diverticulosis / [facility] COLONOSCOPY, REMOVE LESION, W/SNARE 10/10/2005 3 4 mm sessile polyps in rectum, removed, Dr Sarah CT HEAD/BRAIN 10/31/2011 41 mm hemorrhage in left cerebellum, small hematoma CT HEAD/BRAIN 01/04/2012 left suboccipital craniotomy CTA CHEST NON-CORONARY W CONTRAST 01/17/2012 increased hilar nodes, mild mid lung atelectasis and infiltrate, minimal effusion, no PE CYSTOSCOPY 1977 CYSTOSCOPY 08/12/2000 Dr Banegas ECHO, STRESS (EXERCISE) W/ PHYSICIAN 07/19/2009 Essentially normal with LVEF 60-65%, normal wall motion ECHO, STRESS (EXERCISE) W/ PHYSICIAN 08/22/2010 negative, no wall motion abnormalities, EF 55-59% EGD, FLEXIBLE, DIAGNOSTIC 06/07/2016 normal/[facility] EGD, FLEXIBLE, DIAGNOSTIC 08/29/2018 gastritis, Schatzki ring, hiatal hernia / [facility] EGD, FLEXIBLE, DIAGNOSTIC 05/05/2020 [place] / [facility] EXPLORE/DECOMPRESS CRANIAL NERVES 11/01/2011 [facility] EXPLORE/DECOMPRESS CRANIAL NERVES 11/01/2011 CRANIECTOMY SUBOCCIPITAL EXPLORATION CRANIAL NERVES performed by Kofi Meza MD at OR [facility] FLUORO ESOPHAGRAM ENTIRE WO VIDEO 04/10/2001 [facility] with GERd INFORMATION 1997 laser destruction wart lower lip INJECT DX/THER SUBSTANCE INTERLAMINAR LUMBAR/SACRAL W IMAGE GUIDE 01/19/2020 INJECTION SPINE LUMBAR OR SACRAL performed by Cornelio Quan DO at OR [facility] MRI ABDOMEN WO CONTRAST 12/27/2012 OPEN SKULL FOR EXPLORATION 11/28/2011 craniotomy to clean out pseudomeningocele, [facility], Dr Ruano REMOVAL OF APPENDIX REMOVAL OF APPENDIX UPPER GI ENDOSCOPY N/A 03/02/2022 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73 Tobacco Use Smoking status: Former Current packs/day: 0.00 Average packs/day: 1 pack/day for 20.0 years (20.0 ttl pk-yrs) Types: Cigarettes Start date: 02/13/1971 Quit date: 02/13/1991 Years since quittin.4 Passive exposure: Past (Father smoked cigars) Smokeless tobacco: Former Types: Snuff, Chew Quit date: 02/13/2007 Tobacco comments: Doesn't chew, use snuff, or smoke anymore Vaping Use Vaping status: Never Used Substance and Sexual Activity Alcohol use: Not Currently Alcohol/week: 2.0 standard drinks of alcohol Types: 2 12 oz of beer per week Drug use: No Sexual activity: Not Currently Partners: Female Other Topics Concern Service Not Asked Blood Transfusions No Caffeine Concern Not Asked Occupational Exposure Not Asked Hobby Hazards Not Asked Sleep Concern Not Asked Stress Concern Not Asked Weight Concern Not Asked Special Diet Not Asked Back Care Not Asked Exercise Not Asked Bike Helmet Not Asked Seat Belt Not Asked Self-Exams Not Asked Social History Narrative Not on file Social Determinants of Health Financial Resource Strain: Not on file Food Insecurity: No Food Insecurity (04/11/2023) Hunger Vital Sign Worried About Running Out of Food in the Last Year: Never true Ran Out of Food in the Last Year: Never true Transportation Needs: Not on file Physical Activity: Not on file Stress: Not on file Social Connections: Not on file Intimate Partner Violence: Not on file Housing Stability: Not on file Family History Problem Relation Name Age of Onset Diabetes Mother Kate Jett Cancer Mother [facility] liver Stroke Mother [facility] TIA Hypertension Mother [facility] Cirrhosis Mother [facility] Heart Disorder Father CHF Other (carotid artery disease) Brother Thyroid Disorder Other Current Outpatient Medications Medication Sig Dispense Refill MULTIVITAMINS PO TABS daily VITAMIN D 1000 UNITS PO TABS 1 tab daily Acetaminophen 500 MG Oral Tablet Take 1 Tablet by mouth every 6 hours as needed. Tamsulosin HCl 0.4 MG Oral Capsule (Flomax) TAKE 1 CAPSULE BY MOUTH EVERY DAY 90 Capsule 3 Vitamin B12 1000 MCG Oral Tablet Extended Release Take one daily Finasteride 5 MG Oral Tablet (Proscar) TAKE 1 TABLET BY MOUTH EVERY DAY IN THE MORNING 90 Tablet 3 Rosuvastatin Calcium 10 MG Oral Tablet (Crestor) TAKE 1 TABLET BY MOUTH EVERY DAY 90 Tablet 3 Omeprazole 20 MG Oral Capsule Delayed Release (PriLOSEC) TAKE 1 CAP BY MOUTH DAILY. 1 HOUR BEFORE THE FIRST MEAL OF THE DAY 90 Capsule 2 Levothyroxine Sodium 75 MCG Oral Tablet (Levoxyl) TAKE 1 TABLET BY MOUTH DAILY. (AT LEAST 30 MIN PRIOR TO BREAKFAST OR OTHER MEDS) 90 Tablet 2 DULoxetine HCl 60 MG Oral Capsule Delayed Release Particles (Cymbalta) TAKE 1 CAPSULE BY MOUTH IN THE MORNING. DO NOT CUT, CRUSH OR CHEW. 90 Capsule 1 Metoprolol Succinate ER 25 MG Oral Tablet Extended Release 24 Hour (toPROL XL) Take 1 Tablet by mouth in the morning. 90 Tablet 3 Meclizine HCl 25 MG Oral Tablet (Antivert) Take 1 Tablet by mouth 3 times a day as needed for Dizziness. 90 Tablet 1 OneTouch Verio In Vitro Strip (Glucose Blood) Use up to 4 times a day E11.9 100 Strip 11 OneTouch UltraSoft Lancets Use as directed 4 times a day as needed for Hypoglycemia (low sugar) or Hyperglycemia (high sugar). Use up to four times a day as directed 100 Each 2 Blood Glucose Test In Vitro Strip Check glucose daily E 11.9 100 Strip 3 Lancets Use as directed- once daily E11.9 100 Each 3 OneTouch Verio w/Device Kit Use once daily E11.9 1 Kit 0 Pregabalin 50 MG Oral Capsule (Lyrica) 1 cap daily x 2 weeks then 1 cap twice daily 60 Capsule 5 No current facility-administered medications for this visit. Facility-Administered Medications Ordered in Other Visits Medication Dose Route Frequency Provider Last Rate Last Admin ceFAZolin in D5W (ANCEF) ivpb Once PRN Elliot Gardner CRNA 2 g at 11/01/11 1345 Review of patient's allergies indicates: Allergen Reactions Amoxicillin Other reaction(s): JAUNDICE Augmentin [Amoxicillin-Pot Clavulanate] Liver complications (Please comment) Was hospitalized for liver problems associated with augmentin Clavulanic Acid Other reaction(s): JAUNDICE Dicyclomine Other reaction(s): dizziness, light headedness Isosorbide Other reaction(s): PAIN IN LIMBS DIARRHEA Oxycodone Other reaction(s): Confusion Bentyl [Dicyclomine Hcl] Causes light-headed and dizziness Clindamycin Gabapentin Psych complications Imdur [Isosorbide Nitrate] Diarrhea, fatigue, myalgias Results for orders placed or performed in visit on 02/12/23 CBC Result Value Ref Range WBC 5.21 4.00 - 10.80 K/uL RBC 4.13 4.50 - 5.25 M/uL HGB 12.9 (L) 14.0 - 16.8 g/dL HCT 39.3 (L) 40.0 - 48.4 % MCV 95.2 82.0 - 99.5 fL MCH 31.2 27.0 - 34.0 pg MCHC 32.8 32.0 - 36.0 g/dL RDW 12.9 11.5 - 15.5 % PLT 169 140 - 400 K/uL MPV 12.2 6.6 - 11.1 fL nRBCs 0 <=0 /100 WBCs Results for orders placed or performed in visit on 02/12/23 BASIC METABOLIC PANEL Result Value Ref Range BUN 16 6 - 20 mg/dL Creatinine 1.2 0.6 - 1.2 mg/dL Estimated Glomerular Filtration Rate 58 (L) >=60 mL/min Sodium 137 135 - 146 mmol/L Potassium 4.7 3.5 - 5.1 mmol/L [place] 104 98 - 107 mmol/L CO2 25 22 - 32 mmol/L Anion Gap 8 7 - 15 mmol/L Glucose 95 70 - 120 mg/dL Calcium 9.7 8.4 - 10.2 mg/dL Results for orders placed or performed in visit on 04/13/16 LIPID PANEL Result Value Ref Range HOURS FASTING 12 hours Triglycerides 120 <200 mg/dL Cholesterol 165 <200 mg/dL HDL Cholesterol 39 (L) >39 mg/dL Cholesterol-HDL Ratio 4.2 LDL Cholesterol 102 0 - 129 mg/dL Results for orders placed or performed in visit on 04/28/21 LIPID PANEL WITH DIRECT LDL IF TG IS HIGH Result Value Ref Range Triglycerides 139 <=174 mg/dL Cholesterol 128 <200 mg/dL HDL Cholesterol 39 (L) >39 mg/dL Non-HDL Cholesterol 89 <=159 mg/dL LDL Cholesterol 61 <=129 mg/dL Lab Results Component Value Date/Time HEMOGLOBIN A1C - [facility] 6.3 (H) 06/26/2022 08:58 AM HEMOGLOBIN A1C - [facility] 6.0 (H) 12/12/2019 12:53 PM HEMOGLOBIN A1C - [facility] 6.3 (H) 12/18/2018 03:34 PM HEMOGLOBIN A1C - [facility] 6.4 (H) 06/10/2018 09:06 AM Lab Results Component Value Date/Time TSH - [facility] 1.14 06/26/2022 08:58 AM TSH - [facility] 1.48 09/20/2021 03:42 PM TSH - [facility] 2.28 10/25/2020 03:17 PM TSH - [facility] 0.70 02/02/2020 04:06 PM TSH - [facility] 1.83 06/23/2019 03:14 PM TSH - [facility] 1.11 06/10/2018 09:06 AM No results found for: "DOMINIQUE" Results for orders placed or performed in visit on 06/26/22 VITAMIN B12 Result Value Ref Range Vitamin B12 334 232 - 1,245 pg/mL Results for orders placed or performed in visit on 08/18/22 FOLIC ACID Result Value Ref Range Folic Acid >20.0 >4.5 ng/mL No results found for: "[id number]" No results found for: "[id number]" No results found for: "[id number]" 25OH VITAMIN D TOTAL (ng/mL) Date Value 06/04/2015 45 06/09/2014 55 04/21/2009 33.9 Vitamin D Level Interpretation deficient: <20 ng/ml insufficient: 20-30 ng/ml normal: 31-100 ng/ml REVIEW OF SYSTEMS: as above patient does not drive PHYSICAL EXAM: BP 124/70 | Pulse 72 | Temp 36.7 C (98.1 F) (Tympanic) | Resp 16 | Wt 89.4 kg (197 lb 1.6 oz) | SpO2 94% | BMI 27.49 kg/m | BSA 2.12 m The patient is awake and alert speech and language are normal affect appropriate strength is full in the lowers ankle jerks are absent vibration is present at the ankles and there has an ankle level to temperature gait is wide-based What was the mini mental exam score? 26 What is today's date? 0 What is today's year? 1 What is the month? 1 What day is today? 1 What season is it? 0 What is the name of this hospital/clinic? 1 What floor are we on? 1 What town/city are we in? 1 What county are we in? 1 What state are we in? 1 Did the patient repeat ball? 1 Did the patient repeat flag? 1 Did the patient repeat tree? 1 Was the patient response 93. 1 Was the patient response 86? 1 Did the patient respond D? 1 Did the patient respond L? 1 Did the patient respond R? 1 Did the patient respond O? 1 Did the patient respond W? 1 Did the patient respond ball? 1 Did the patient respond flag? 0 Did the patient respond tree? 1 Show the patient a watch and ask what it is. 1 Show the patient a pencil and ask what it is. 1 Ask the patient to repeat No ifs, ands or buts. 1 Ask pt to take a paper in their hand, fold in half and place on floor 1 Patient takes paper in hand 1 Patient folds paper in half [address] Patient [address] paper on the floor 1 Hold card "Close eyes". Ask pt. to read and do what it says 1 Give pt. paper and ask to write a sentence. 0 Show pt. drawing of intersecting pentagons. Ask pt. to draw 1 IMPRESSION: Mild cognitive impairment stable Neuropathy likely related to B12 deficiency continue B12. 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 Return in 6 months Riya Mendez MD 07/05/2023 4:14 PM documented in this encounter Nursing Notes * Candice Ospina MED ASSIST - 07/05/2023 3:42 PM EDT Chief Complaint Patient presents with Return Neuro Neuropathy documented in this encounter Plan of Treatment Upcoming Encounters Date Type Department Care Team (Latest Contact Info) Description 09/17/2023 9:18 AM EDT Hospital Encounter OR [facility], Operating Room, [facility] - 4th Floor [address] [place] [address] Yasmin Palma, DO [address] [place] [address] 09/17/2023 9:18 AM EDT - 09/17/2023 9:48 AM EDT Surgery OR [facility], Operating Room, [facility] - 4th Floor [address] [place] [address] Yasmin Palma, DO [address] [place] [address] ESOPHAGOGASTRODUODENOSCOPY (EGD), FLEXIBLE, TRANSORAL, DIAGNOSTIC 10/31/2023 2:00 PM EDT Office Visit [facility] [address] [place] [id number] Jonathan Lan MD [address] [place] [address] 10/31/2023 4:00 PM EDT Office Visit Urology, [facility] [address] [place] [address] Ronan Tejada MD [address] [address] [place] [address] 01/17/2024 1:00 PM EST Office Visit Neurology [facility] [place] [address] [facility] [place] [address] Riya Mendez MD [address] [facility] [place] [address] 04/18/2024 2:00 PM EDT Nurse Only Ancillary Department, [place] [address] [place] [address] [place], Nurse [facility] [address] [place] [address] Scheduled Procedures Name Priority Associated Diagnoses Date/Ti me ESOPHAGOGASTRODUODENOSCOPY ( EGD), FLEXIBLE, TRANSORAL, DIAGNOSTIC Dysphagia 09/17/2023 9:18 AM EDT COLONOSCOPY FLEXIBLE PROXIMA L DIAGNOSTIC Recall Inflammatory polyps of colon with rectal bleeding Diverticulosis COLONOSCOPY FLEXIBLE PROXIMA L DIAGNOSTIC Recall H/O colonoscopy Health Maintenance Due Date Last Done Comments Zoster Vaccines (1 of 2) 1986 AAA Monitoring 06/22/2020 06/23/2019 CKD PHOS USE SMARTSET 58256 09/20/202209/05, 01/18/2021, 06/23/2019, Additional history exists COVID-19 Vaccine ( season) 2022 01/18/2021, 06/05/2020, 05/13/2020, Additional history exists HbA1c 12/27/2022 06/26/2022, 11/0 07/2019, 12/18/2018, Additional history exists Albumin/Creatinine Ratio 06/27/2023 023, 06/10/2018, 06/26/2017, Additional history exists TSH 06/27/2023 06/26/2022, 09/05, 10/25/2020, Additional history exists CKD HGB USE SMARTSET 94665 02/13/202402/12, 02/12/2023, 12/13/2022, Additional history exists Depression [...] as of this encounter Visit Diagnoses Diagnosis Cognitive changes- Primary Other signs and symptoms involving cognition Sensory polyneuropathy Hereditary sensory neuropathy Dysphagia Dysphagia, unspecified documented in this encounter Advance Directives * Full Code (Latest Code Status on File) Date Activated Date Inactivated Comments 12/03/2022 11:56 AM 12/05/2022 10:43 PM Question Answer Comments Discussion of Advance Direct yovana occurred with: Not Discussed due to patient's condition * Full Code Date Activated Date Inactivated Comments 11/01/2011 2:46 AM 11/07/2011 8:53 PM This order r eflects the patients wishes and were consensually agreed upon. Question Answer Comments Discussion of Advance Directives occurred with: Patient Does the patient have a Living Will? No Does the patient have Health Care Power of Attor aimee? No Care Teams Front Desk Auxiliary Relationship Specialty Start Date End Date Jonathan Lan MD [address] [place] [address] PCP - General Family Medicine 08/15/12 documented as of this encounter
--- OUTSIDE RECORDS SUMMARY | 2023-07-20 22:50 | External Medical Summary | Summary of Care ---
Author Name Unknown Organization [facility] Address [address] [facility] [place] [address] Phone [phone] Care Team Providers Care Orthopedic Coder Name Role Phone Jonathan Lan MD Primary Care Provider [phone] Reason for Referral * Ancillary Services (Within 30 days (routine)) - Authorized Specialty Diagnoses / Procedures Referred By Eufemia cooper Referred To Contact Gastroenterology Diagnoses Dysphagia, unspecified type Jonathan Lan MD [address] [place] [address] Referral ID Status Reason Start Date Expiration Date Visits Requested Visits Authorized [id number] Authorized Ancillary Services Required 06/29/2023 999 999 Question Answer Referral Priority Within 30 days (routine) Where should this appointment be scheduled? [facility] Comments Upper Endoscopy ASGE Guidelines dysphagia ADDITIONAL INFORMATION 1. Is the patient on Coumadin? No 2. Is the patient on Pradaxa? No Encounter Details Date Type Department Care Team (Late st Contact Info) Description 06/29/2023 Telephone [facility] [address] [place] [address] Jonathan Lan MD [address] [place] [address] Allergies Active Allergy Reactions Criticality Noted Date [...] as of this encounter (statuses as of 06/29/2023) Medications Medication Sig Dispensed Refills Start Date [...] as of this encounter (statuses as of 06/29/2023) Active Problems Problem Noted Date Diagnosed Date [...] as of this encounter (statuses as of 06/29/2023) Resolved Problems Problem Noted Date Diagnosed Date [...] as of this encounter (statuses as of 06/29/2023) Immunizations Name Administration Dates Next Due COVID-19 mRNA, LNP-s, No Pre serve, 2-Dose Series (Pfizer) 01/18/2021,05/13/2020,04/22/2020 Pneumococcal Conjugate Vacc, 13 Valent (Prevnar) [...] encounter Miscellaneous Notes * Telephone Encounter - Jonathan Lan MD - 06/29/2023 9:09 AM EDT Please cancel the Sep colonoscopy. Needs scheduled for upper endoscopy. Let Pt know I was in contact with Dr Palma and he recommended doing another EGD and doing dilationat that time. Prefer if the EGD is scheduled with Dr Palma. * Telephone Encounter - Jonathan Lan MD - 06/29/2023 9:09 AM EDT ----- Message from Yasmin Palma DO sent at 06/28/2023 10:05 AM EDT ----- It looks like the last upper endoscopy was performed by 1 of my partners over year ago. At that time they did not do a dilation of the esophagus. Perhaps all he needs is an empiric dilation. Adán ----- Message ----- From: Jonathan Lan MD Sent: 06/27/2023 6:52 PM EDT To: DO Gayle Allred, You are scheduled to do colonoscopy at [facility] in September. This is a 5 year repeat study. 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 He has had no problems with rectal bleeding. I do not believe he needs colonoscopy. But he was to be scheduled for dysmotility study of esophagus . Not sure what happened but that was never scheduled . Are you OK with cancelling colonoscopy. He does have ongoing dysphagia symptoms. How do I get the esophageal study done? Jonathan Turner documented in this encounter Plan of Treatment Upcoming Encounters Date Type Department Care Team (Latest Contact Info) Description 07/05/2023 3:40 PM EDT Office Visit Neurology [facility] [address] [facility] [place] [address] Riya Mendez MD [address] [facility] [place] [address] 09/17/2023 9:18 AM EDT Hospital Encounter OR [facility], Operating Room, [facility] - 4th Floor [address] [facility] [place] [address] Yasmin Palma DO [address] [place] [address] 09/17/2023 9:18 AM EDT - 09/17/2023 9:48 AM EDT Surgery OR [facility], Operating Room, [facility] - 4th Floor [address] [facility] [place] [address] Yasmin Palma DO [address] [facility] [place] [address] ESOPHAGOGASTRODUODENOSCOPY (EGD), FLEXIBLE, TRANSORAL, DIAGNOSTIC 10/31/2023 2:00 PM EDT Office Visit [facility], [place] [address] [place] [facility] [place] [id number] Jonathan Lan MD [address] [facility] [place] [address] 10/31/2023 4:00 PM EDT Office Visit Urology, [facility] [address] [place] [address] Ronan Tejada MD [address] [facility] [address] [place] [address] 04/18/2024 2:00 PM EDT Nurse Only Ancillary Department, [place] [address] [facility] [address] [place], Nurse [facility] [address] [facility] [place] [address] Scheduled Procedures Name Priority Associated Diagnoses Date/Ti wv ESOPHAGOGASTRODUODENOSCOPY ( EGD), FLEXIBLE, TRANSORAL, DIAGNOSTIC Dysphagia 09/17/2023 9:18 AM EDT COLONOSCOPY FLEXIBLE PROXIMA L DIAGNOSTIC Recall Inflammatory polyps of colon with rectal bleeding Diverticulosis COLONOSCOPY FLEXIBLE PROXIMA L DIAGNOSTIC Recall H/O colonoscopy Scheduled Referrals Name Type Priority Associated Diagnoses Orde r Schedule UPPER ENDOSCOPY GI REFERRAL OP Referral Within 30 days (routine) Dysphagia, unspecified type Ordered: 06/29/2023 Health Maintenance Due Date Last Done Comments Zoster Vaccines (1 of 2) 1986 AAA Monitoring 06/22/2020 06/23/2019 CKD PHOS USE SMARTSET 86373 09/20/202209/05, 01/18/2021, 06/23/2019, Additional history exists COVID-19 Vaccine ( season) 2022 01/18/2021, 06/05/2020, 05/13/2020, Additional history exists HbA1c 12/27/2022 06/26/2022, 1107/2019, 12/18/2018, Additional history exists Albumin/Creatinine Ratio 06/27/2023 023, 06/10/2018, 06/26/2017, Additional history exists TSH 06/27/2023 06/26/2022, 09/05, 10/25/2020, Additional history exists CKD HGB USE SMARTSET 24497 02/13/202402/12, 02/12/2023, 12/13/2022, Additional history exists Depression [...] as of this encounter Visit Diagnoses Diagnosis Dysphagia, unspecified type- Primary Dysphagia Dysphagia, unspecified documented in this encounter [...] Power of Attor aimee? No Care Teams Orthopedic Coder Relationship Specialty Start Date End Date Jonathan Lan MD [address] [facility] [place] [address] PCP - General Family Medicine 08/15/12 documented as of this encounter
--- OUTSIDE RECORDS SUMMARY | 2023-07-20 22:50 | External Medical Summary | Summary of Care ---
Author Name Unknown Organization [facility] Address [address] [facility] [place] [address] Phone [phone] Care Team Providers Care Front Office Medical Assistant Name Role Phone Jonathan Lan MD Primary Care Provider [phone] Reason for Visit * Reason Onset Date Comments Order Request 05/14/2023 Encounter Details Date Type Department Care Team (Late st Contact Info) Description 05/14/2023 Telephone [facility] [address] [place] [address] Jonathan Lan MD [address] [place] [address] Order Request Allergies Active Allergy Reactions Criticality Noted Date [...] as of this encounter (statuses as of 05/15/2023) Medications Medication Sig Dispensed Refills Start Date End Date Status MULTIVITAMINS PO TABS daily 0 Active VITAMIN D 1000 UNITS PO TABS 1 tab daily 0 Active Acetaminophen 500 MG Oral Tablet Take 1 Tablet by mouth every 6 hours as needed. 0 Active Tamsulosin HCl 0.4 MG Oral Capsule (Flomax) TAKE 1 CAPSULE BY MOUTH EVERY DAY 90 Capsule 3 08/07/2022 Active Vitamin B12 1000 MCG Oral Tablet Extended ReleaseIndications:V itamin B12 deficiency Take one daily 0 08/23/2022 [...] as directed 100 Each 2 05/15/2023 Active documented as of this encounter (statuses as of 05/15/2023) Active Problems Problem Noted Date Diagnosed Date [...] as of this encounter (statuses as of 05/15/2023) Resolved Problems Problem Noted Date Diagnosed Date [...] as of this encounter (statuses as of 05/15/2023) Immunizations Name Administration Dates Next Due COVID-19 mRNA, LNP-s, No Pre serve, 2-Dose Series ([employer]) 01/18/2021,05/13/2020,04/22/2020 Pneumococcal Conjugate Vacc, 13 Valent (Prevnar) [...] encounter Miscellaneous Notes * Telephone Encounter - Riya Graham RN - 05/14/2023 3:[address] Lan, I just spoke with patient's , it was suggested by physical therapy that she check his blood sugars to make sure they are not low/high-maybe contributing to his dizziness/falls, she is asking for a script for the test strips & lancets. I encouraged her to get his A1C lab work drawn, last A1C on 06/26/22 was 6.3. Patient continues to have dizzy spells that leads to having frequent falls. Dr. Cervantes ordered physical therapy which was started last week-thanks Riya Graham RN documented in this encounter Plan of Treatment Upcoming Encounters Date Type Department Care Team (Late st Contact Info) Description 06/25/2023 2:00 PM EDT Office Visit [facility] [address] [place] [facility] [place] [id number] Jonathan Lan MD [address] [place] [facility] [place] [address] 07/05/2023 3:40 PM EDT Office Visit [facility] [address] [facility] [place] [address] Riya Mendez MD [address] [place] [address] 08/01/2023 8:30 AM EDT Procedure Only Endoscopy, [facility] [address] [facility] [place] [address] Yasmin Palma, [address] [place] [address] 10/31/2023 4:00 PM EDT Office Visit Urology, [facility] [address] [place] [address] Ronan Tejada MD [address] [place] [address] [place] [address] 04/18/2024 2:00 PM EDT Nurse Only Ancillary Department, [place] [address] [place] [address] [place], Nurse [facility] [address] [place] [address] Scheduled Procedures Name Priority Associated Diagnoses Date/Ti me COLONOSCOPY FLEXIBLE PROXIMA L DIAGNOSTIC Recall Inflammatory polyps of colon with rectal bleeding Diverticulosis COLONOSCOPY FLEXIBLE PROXIMA L DIAGNOSTIC Recall H/O colonoscopy Health Maintenance Due Date Last Done Comments Zoster Vaccines (1 of 2) 1986 AAA Monitoring 06/22/2020 06/23/2019 CKD PHOS USE SMARTSET 78549 09/20/202209/05, 01/18/2021, 06/23/2019, Additional history exists COVID-19 Vaccine ( season) 2022 01/18/2021, 06/05/2020, 05/13/2020, Additional history exists HbA1c 12/27/2022 06/26/2022, 11/0 07/2019, 12/18/2018, Additional history exists Albumin/Creatinine Ratio 06/27/2023 023, 06/10/2018, 06/26/2017, Additional history exists TSH 06/27/2023 06/26/2022, 09/05, 10/25/2020, Additional history exists CKD HGB USE SMARTSET 18142 02/13/202402/12, 02/12/2023, 12/13/2022, Additional history exists Depression [...] Not on filedocumented as of this encounter Advance Directives Latest Code Status [...] the patient have Health Care Power of Newspaper Columnist? No Care Teams Front Office Medical Assistant Relationship Specialty Start Date End Date Jonathan Lan MD [address] [place] [facility] [place] [address] PCP - General Family Medicine 08/15/12 documented as of this encounter
--- OUTSIDE RECORDS SUMMARY | 2023-07-20 22:50 | External Medical Summary | Summary of Care ---
Author Name Unknown Organization [facility] Address [address] [facility] [place] [address] Phone [phone] Care Team Providers Care Principal Technologist Name Role Phone Jonathan Lan MD Primary Care Provider [phone] Reason for Referral * Ancillary Services (Within 30 days (routine)) - Authorized Specialty Diagnoses / Procedures Referred By Eufemia cooper Referred To Contact Gastroenterology Diagnoses Dysphagia, unspecified type Jonathan Lan MD [address] [place] [address] Referral ID Status Reason Start Date Expiration Date Visits Requested Visits Authorized [id number] Authorized Ancillary Services Required 06/29/[phone] Question Answer Referral Priority Within 30 days (routine) Where should this appointment be scheduled? [facility] Comments Upper Endoscopy ASGE Guidelines dysphagia ADDITIONAL INFORMATION 1. Is the patient on Coumadin? No 2. Is the patient on Pradaxa? No Encounter Details Date Type Department Care Team (Late st Contact Info) Description 06/29/2023 Telephone [facility] [address] [place] [address] Jonathan Lan MD [address] [place] [address] Allergies Active Allergy Reactions Criticality [...] mRNA, LNP-s, No Pre serve, 2-Dose Series ([employer]) 01/18/2021,05/13/2020,04/22/2020 Influenza, Whole Virus 02/03/2000,12/02/1998 Pneumococcal Conjugate Vacc, 13 Valent (Prevnar) 05/27/2014 Pneumococcal Polysaccharide PPV23 (Pneumovax) 06/19/2014,09/18/2003 Season Influenza, Quad, PF, Adjuvanted, 65+ Yrs, IM (FLUAD) 11/28/2019 Seasonal Influenza, PF, 6 M & above, IM , (FluLaval or Fluzone) 11/05/2017,11/07/2016 Seasonal Influenza, Quadriva lent Hd (Fluzone Hd) 12/05/2022,12/21/2021,11/25/2020 Seasonal Influenza, Quadriva lent, No Preserve, IM 11/16/2015,11/27/2014 Seasonal Influenza, Split, I IV3, With Preserve, Inj 11/14/2013,11/12/2012,11/02/2011,11/05,11/11/2009,10/21/2008,11/26/19 08,11/22/2006,12/16/2005,12/13/2001,1 02/25/2000 12/07/2001 Seasonal Influenza, Trivalen t, Adjuvanted, 65+ yrs 11/19/2018 TD - Tetanus/Diptheria (ADULT) 09/07/2005,1998 TDAP (age 10 and older)(Boostrix) 12/03/2022, documented [...] encounter Miscellaneous Notes * Telephone Encounter - Vania Blackmon OSA - 06/29/2023 11:09 AM EDT EGD is already toan'd 09/17/23 at [facility]. * Telephone Encounter - Zuleyma Sun OSA - 06/29/2023 9:31 AM EDT Gastro: Please see message below. Please cancel Aug Colonoscopy and schedule EGD with Dr. Palma. Spoke to patient's and she stated this is the plan going forward that they are in agreeance tocanceling Colonoscopy and having an EGD. 06/29/2023 * Telephone Encounter - Jonathan Lan MD - 06/29/2023 9:09 AM EDT Please cancel the Aug colonoscopy. Needs scheduled for upper endoscopy. Let [...] You are scheduled to do colonoscopy at [facility] in September. This is a 5 year [...] do I get the esophageal study done? Thanks, Jonathan documented in this encounter Plan of Treatment Upcoming Encounters Date Type Department Care Team (Latest Contact Info) Description 07/05/2023 3:40 PM EDT Office Visit Neurology [facility] [address] [facility] [place] [address] Riya Mendez MD [address] [facility] [place] [address] 09/17/2023 9:18 AM EDT Hospital Encounter OR [facility], Operating Room, [facility] - 4th Floor [address] [place] [address] Yasmin Palma, DO [address] [place] [address] 09/17/2023 9:18 AM EDT - 09/17/2023 9:48 AM EDT Surgery OR [facility], Operating Room, [facility] - 4th Floor [address] [place] [address] Yasmin Palma, DO [address] [place] [address] ESOPHAGOGASTRODUODENOSCOPY (EGD), FLEXIBLE, TRANSORAL, DIAGNOSTIC 10/31/2023 2:00 PM EDT Office Visit [facility] [address] [place] [address] Jonathan Lan MD [address], [place] [address] 10/31/2023 4:00 PM EDT Office Visit Urology, [facility] [address] [place] [address] Ronan Tejada MD [address] [facility] [address] [place] [address] 04/18/2024 2:00 PM EDT Nurse Only Ancillary Department, [place] [address] [place] [facility] [place] [address] [place], Nurse [facility] [address], [place] [phone] Scheduled Procedures Name Priority Associated Diagnoses Date/Ti [...] Monitoring 06/22/2020 06/23/2019 CKD PHOS USE SMARTSET 92785 09/20/202209/05, 01/18/2021, 06/23/2019, Additional history exists COVID-19 Vaccine ( season) 2022 01/18/2021, 06/05/2020, 05/13/2020, Additional history exists HbA1c 12/27/2022 06/26/2022, 11/0 07/2019, 12/18/2018, Additional history exists Albumin/Creatinine Ratio 06/27/2023 023, 06/10/2018, 06/26/2017, Additional history exists TSH 06/27/2023 06/26/2022, 09/05, 10/25/2020, Additional history exists CKD HGB USE SMARTSET 01068 02/13/202402/12, 02/12/2023, 12/13/2022, Additional history exists Depression [...] Power of Attor aimee? No Care Teams Principal Technologist Relationship Specialty Start Date End Date Jonathan Lan MD [address] [place] [address] PCP - General Family Medicine 08/15/12 documented as of this encounter
--- OUTSIDE RECORDS SUMMARY | 2023-07-20 22:50 | External Medical Summary | Summary of Care ---
Author Name Unknown Organization [facility] Address [address] [facility] [place] [address] Phone [phone] Care Team Providers Care Funding Specialist Name Role Phone Margareth Lan MD Primary Care Provider [phone] Reason for Visit * Reason Comments eRx-Medication Refill Encounter Details Date Type Department Care Team (Late st Contact Info) Description 07/13/2023 Refill [facility] [address] [place] [address] Margareth Lan MD [address] [place] [address] Esophagitis Allergies Active Allergy Reactions Criticality Noted Date [...] as of this encounter (statuses as of 07/13/2023) Medications Medication Sig Dispensed Refills Start Date End Date Status MULTIVITAMINS PO TABS daily Active VITAMIN D 1000 UNITS PO TABS 1 tab daily Active Acetaminophen 500 MG Oral Tablet Take 1 Tablet by mouth every 6 hours as needed. Active Tamsulosin HCl 0.4 MG Oral Capsule (Flomax) TAKE 1 CAPSULE BY MOUTH EVERY DAY 90 Capsule 3 3 Active Vitamin B12 1000 MCG Oral Tablet Extended ReleaseIndications :Vitamin B12 deficiency Take one daily 3 Active Finasteride 5 MG Oral Tablet (Proscar)Indicatio ns:Hematuria, gross,BPH with obstruction/lower urinary tract symptoms TAKE 1 TABLET BY MOUTH EVERY DAY IN THE MORNING 90 Tablet 3 3 Active Rosuvastatin Calcium 10 MG Oral Tablet (Crestor) TAKE 1 TABLET BY MOUTH EVERY DAY 90 Tablet 3 3 Active Levothyroxine Sodium 75 MCG Oral Tablet (Levoxyl)Indicatio ns:Acquired hypothyroidism TAKE 1 TABLET BY MOUTH DAILY. (AT LEAST 30 MIN PRIOR TO BREAKFAST OR OTHER MEDS) 90 Tablet 2 3 Active DULoxetine HCl 60 MG Oral Capsule Delayed Release Particles (Cymbalta)Indicati ons:Left sided sciatica TAKE 1 CAPSULE BY MOUTH IN THE MORNING. DO NOT CUT, CRUSH OR CHEW. 90 Capsule 1 3 Active Metoprolol Succinate ER 25 MG Oral Tablet Extended Release 24 Hour (toPROL XL)Indications:HTN , goal below 140/90 Take 1 Tablet by mouth in the morning. 90 Tablet 3 4 Active Meclizine HCl 25 MG Oral Tablet (Antivert)Indicati ons:Vertigo Take 1 Tablet by mouth 3 times a day as needed for Dizziness. 90 Tablet 1 4 Active OneTouch Verio In Vitro Strip (Glucose Blood) Use up to 4 times a day E11.9 100 Strip 11 4 Active OneTouch UltraSoft Lancets Use as directed 4 times a day as needed for Hypoglycemia (low sugar) or Hyperglycemia (high sugar). Use up to four times a day as directed 100 Each 2 4 Active Blood Glucose Test In Vitro StripIndications:D iabetes mellitus without complication (HCC) Check glucose daily E 11.9 100 Strip 3 4 Active LancetsIndications :Diabetes mellitus without complication (HCC) Use as directed- once daily E11.9 100 Each 3 4 Active OneTouch Verio w/Device KitIndications:Bella betes mellitus without complication (HCC) Use once daily E11.9 1 Kit 4 Active Pregabalin 50 MG Oral Capsule (Lyrica)Indication s:Right-sided low back pain with right-sided sciatica, unspecified chronicity 1 cap daily x 2 weeks then 1 cap twice daily 60 Capsule 5 4 Active Omeprazole 20 MG Oral Capsule Delayed Release (PriLOSEC)Indicati ons:Esophagitis TAKE 1 CAP BY MOUTH DAILY. 1 HOUR BEFORE THE FIRST MEAL OF THE DAY 90 Capsule 2 4 Active Omeprazole 20 MG Oral Capsule Delayed Release (PriLOSEC)Indicati ons:Esophagitis TAKE 1 CAP BY MOUTH DAILY. 1 HOUR BEFORE THE FIRST MEAL OF THE DAY 90 Capsule 2 3 024 Discontinued documented as of this encounter (statuses as of 07/13/2023) Active Problems Problem Noted Date Diagnosed Date [...] as of this encounter (statuses as of 07/13/2023) Resolved Problems Problem Noted Date Diagnosed Date [...] as of this encounter (statuses as of 07/13/2023) Immunizations Name Administration Dates Next Due COVID-19 mRNA, LNP-s, No Pre serve, 2-Dose Series ([employer]) 01/18/2021,05/13/2020,04/22/2020 Pneumococcal Conjugate Vacc, 13 Valent (Prevnar) [...] encounter Miscellaneous Notes * Telephone Encounter - Napoleon Garn[facility] - 07/13/2023 3:35 PM EDTSigned Prescriptions: Disp Refills Omeprazole 20 MG Oral Capsule Delayed Rele*90 Cap*2 Sig: TAKE 1 CAP BY MOUTH DAILY. 1 HOUR BEFORE THE FIRST MEAL OF THE DAYAuthorizing Provider: MARGARETH LAN User: NAPOLEON HARRISON documented in this encounter Plan of Treatment Upcoming Encounters Date Type Department Care Team (Latest Contact Info) Description 09/17/2023 9:18 AM EDT Hospital Encounter OR [facility], Operating Room, [facility] - 4th Floor [address] [place] [address] Yasmin Palma, DO [address] [place] [address] 09/17/2023 9:18 AM EDT - 09/17/2023 9:48 AM EDT Surgery OR [facility], Operating Room, [facility] - 4th Floor [address] [place] [address] Yasmin Palma, DO [address] [place] [address] ESOPHAGOGASTRODUODENOSCOPY (EGD), FLEXIBLE, TRANSORAL, DIAGNOSTIC 10/31/2023 2:00 PM EDT [facility] [address] [facility] [address] Margareth Lan MD [address] [place] [address] 10/31/2023 4:00 PM EDT Office Visit Urology, [facility] [address] [facility] [place] [address] Ronan Tejada MD [address] [place] [address] [place] [address] 01/17/2024 1:00 PM EST Office Visit [facility]rology [facility] [address] [facility] [place] [address] Riya Mendez MD [address] [place] [address] 04/18/2024 2:00 PM EDT Nurse Only Ancillary Department, [place] [address] [place] [address] [place], Nurse [facility] [address] [place] [address] Scheduled Procedures Name Priority Associated Diagnoses Date/Ti me ESOPHAGOGASTRODUODENOSCOPY ( EGD), FLEXIBLE, TRANSORAL, DIAGNOSTIC Dysphagia 09/17/2023 9:18 AM EDT COLONOSCOPY FLEXIBLE PROXIMA L DIAGNOSTIC Recall Inflammatory polyps of colon with rectal bleeding Diverticulosis COLONOSCOPY FLEXIBLE PROXIMA L DIAGNOSTIC Recall H/O colonoscopy Health Maintenance Due Date Last Done Comments Zoster Vaccines (1 of 2) 1986 AAA Monitoring 06/22/2020 06/23/2019 CKD PHOS USE SMARTSET 21219 09/20/202209/05, 01/18/2021, 06/23/2019, Additional history exists COVID-19 Vaccine (2022- season) 2022 01/18/2021, 06/05/2020, 05/13/2020, Additional history exists HbA1c 12/27/2022 06/26/2022, 11/0 07/2019, 12/18/2018, Additional history exists Albumin/Creatinine Ratio 06/27/2023 023, 06/10/2018, 06/26/2017, Additional history exists TSH 06/27/2023 06/26/2022, 09/05, 10/25/2020, Additional history exists CKD HGB USE SMARTSET 48537 02/13/202402/12, 02/12/2023, 12/13/2022, Additional history exists Depression [...] as of this encounter Visit Diagnoses Diagnosis Esophagitis Esophagitis, unspecified Dysphagia Dysphagia, unspecified documented in this encounter [...] Power of Attor aimee? No Care Teams Funding Specialist Relationship Specialty Start Date End Date Margareth Lan MD [address] [place] [address] PCP - General Family Medicine 08/15/12 documented as of this encounter
--- OUTSIDE RECORDS SUMMARY | 2023-07-20 22:50 | External Medical Summary | Summary of Care ---
Author Name Unknown Organization [facility] Address [address] [facility] [place] [address] Phone [phone] Care Team Providers Care Professor Of Latin American Studies Name Role Phone Jonathan Lan MD Primary Care Provider [phone] Reason for Visit * Reason Onset Date Comments Advice 06/27/2023 Encounter Details Date Type Department Care Team (Late st Contact Info) Description 06/27/[address] [facility] [address] [place] [address] Jonathan Lan MD [address] [place] [address] Advice Allergies Active Allergy Reactions [...] as of this encounter (statuses as of 06/28/2023) Medications Medication Sig Dispensed Refills Start Date [...] as of this encounter (statuses as of 06/28/2023) Active Problems Problem Noted Date Diagnosed Date [...] as of this encounter (statuses as of 06/28/2023) Resolved Problems Problem Noted Date Diagnosed Date [...] as of this encounter (statuses as of 06/28/2023) Immunizations Name Administration Dates Next Due COVID-19 mRNA, LNP-s, No Pre serve, 2-Dose Series ([employer]) 01/18/2021,05/13/2020,04/22/2020 Pneumococcal Conjugate Vacc, 13 Valent (Prevnar) [...] encounter Miscellaneous Notes * Telephone Encounter - Yasmin Palma DO - 06/28/2023 10:06 AM EDT The patient is 88 years old and we would like to cancel his upcoming colonoscopy given his age and comorbid medical conditions. The patient does have intermittent solid food dysphagia and responded to an esophageal dilation in 2020. Given this can we make arrangements for repeat upper endoscopy with empiric esophageal dilation. If this is not helpful then the patient would need to be scheduled for a motility study for further evaluation. Plan Cancel colonoscopy EGD to be scheduled * Telephone Encounter - Yasmin Palma DO - 06/28/2023 10:06 AM EDT ----- Message from Jonathan Lan MD sent at 06/27/2023 6:47 PM EDT ----- Gayle You are scheduled to do colonoscopy at [place] in September. This is a 5 year [...] 07/05/2023 3:40 PM EDT Office Visit Neurology [facility] [address] [facility] [place] [address] Riya Mendez MD [address] [facility] [place] [address] 09/17/2023 9:18 AM EDT Hospital Encounter OR [facility], Operating Room, [facility] - 4th Floor [address] [facility] [place] [address] Yasmin Palma DO [address] [place] [address] 09/17/2023 9:18 AM EDT - 09/17/2023 9:58 AM EDT Surgery OR [facility], Operating Room, [facility] - 4th Floor [address] [facility] [place] [address] Yasmin Palma DO [address] [place] [address] COLONOSCOPY FLEXIBLE PROXIMAL DIAGNOSTIC 10/31/2023 2:00 PM EDT Office Visit [facility] [address] [place] [phone] Jonathan Lan MD [address] [place] [address] 10/31/2023 4:00 PM EDT Office Visit Urology, [facility] [address] [place] [address] Ronan Tejada MD [address] [facility] Jonathan [address] [place] [address] 04/18/2024 2:00 PM EDT Nurse Only Ancillary Department, [place] [address] [place] [address] [place], Nurse [facility] [address] [place] [address] Scheduled Orders Name Type Priority Associated Diagnoses Orde r Schedule EGD, FLEXIBLE, W/BIOPSY Procedures Routine Dysphagia, unspecified type Ordered: 06/28/2023 Scheduled Procedures Name Priority Associated Diagnoses Date/Ti me COLONOSCOPY FLEXIBLE PROXIMAL DIAGNOSTIC Change in bowel habits 09/17/2023 9:18 AM EDT COLONOSCOPY FLEXIBLE PROXIMAL DIAGNOSTIC Recall Inflammatory polyps of colon with rectal bleeding Diverticulosis COLONOSCOPY FLEXIBLE PROXIMAL DIAGNOSTIC Recall H/O colonoscopy Health Maintenance Due Date Last Done Comments Zoster Vaccines (1 of 2) 1986 AAA Monitoring 06/22/2020 06/23/2019 CKD PHOS USE SMARTSET 62993 09/20/202209/05, 01/18/2021, 06/23/2019, Additional history exists COVID-19 Vaccine ( season) 2022 01/18/2021, 06/05/2020, 05/13/2020, Additional history exists HbA1c 12/27/2022 06/26/2022, 11/0 07/2019, 12/18/2018, Additional history exists Albumin/Creatinine Ratio 06/27/2023 023, 06/10/2018, 06/26/2017, Additional history exists TSH 06/27/2023 06/26/2022, 09/05, 10/25/2020, Additional history exists CKD HGB USE SMARTSET 17405 02/13/202402/12, 02/12/2023, 12/13/2022, Additional history exists Depression [...] Visit Diagnoses Diagnosis Dysphagia, unspecified type- Primary Change in bowel habits Other symptoms involving digestive system documented in this encounter Advance Directives * [...] Power of Attor aimee? No Care Teams Professor Of Latin American Studies Relationship Specialty Start Date End Date Jonathan Lan MD [address] [place] [address] PCP - General Family Medicine 08/15/12 documented as of this encounter
--- OUTSIDE RECORDS SUMMARY | 2023-07-20 22:50 | External Medical Summary | Summary of Care ---
Author Name Unknown Organization [facility] Address [address] [facility] [place] [address] Phone [phone] Care Team Providers Care Creel Operator Name Role Phone Jonathan Lan MD Primary Care Provider [phone] Reason for Visit * Reason Onset Date Comments Advice 06/27/2023 Encounter Details Date Type Department Care Team (Late st Contact Info) Description 06/27/2023 Telephone [facility] [address] [place] [address] Jonathan Lan MD [address] [place] [address] Advice Allergies Active Allergy Reactions [...] mRNA, LNP-s, No Pre serve, 2-Dose Series ([employer]) 01/18/2021,05/13/2020,04/22/2020 Influenza, Whole Virus 02/03/2000,12/02/1998 Pneumococcal Conjugate [...] encounter Miscellaneous Notes * Telephone Encounter - Regla Boswell OSA - 06/28/2023 10:58 AM EDT Cx'd colon for 09/25 Changed proc to egd proc. * Telephone Encounter - Yasmin Palma DO [...] sent at 06/27/2023 6:47 PM EDT ----- Gayle, You are scheduled to do colonoscopy at [place] in September. This is a 5 year [...] 07/05/2023 3:40 PM EDT Office Visit Neurology [facility] [address] [facility] [place] [address] Riya Mendez MD [address] [facility] [place] [address] 09/17/2023 9:18 AM EDT Hospital Encounter OR [facility], Operating Room, [facility] - 4th Floor [address] [place] [address] Yasmin Palma, [address] [place] [address] 09/17/2023 9:18 AM EDT - 09/17/2023 9:48 AM EDT Surgery OR [facility], Operating Room, [facility] - 4th Floor [address] [place] [address] Yasmin Palma, [address] [place] [address] ESOPHAGOGASTRODUODENOSCOPY (EGD), FLEXIBLE, TRANSORAL, DIAGNOSTIC 10/31/2023 2:00 PM EDT Office Visit [facility] [place] [address] [place] [phone] Jonathan Lan MD [address] [place], [place] [phone] 10/31/2023 4:00 PM EDT Office Visit Urology, [facility] [address] [place] [address] Ronan Tejada MD 27 [facility] [address] [place] [address] 04/18/2024 2:00 PM EDT Nurse Only Ancillary Department, [place] [address] [place], [place] [phone] [place], Nurse [facility] [address] [place], [place] [phone] Scheduled Orders Name Type Priority Associated Diagnoses [...] Monitoring 06/22/2020 06/23/2019 CKD PHOS USE SMARTSET 68511 09/20/202209/05, 01/18/2021, 06/23/2019, Additional history exists COVID-19 Vaccine ( season) 2022 01/18/2021, 06/05/2020, 05/13/2020, Additional history exists HbA1c 12/27/2022 06/26/2022, 11/0 07/2019, 12/18/2018, Additional history exists Albumin/Creatinine Ratio 06/27/2023 023, 06/10/2018, 06/26/2017, Additional history exists TSH 06/27/2023 06/26/2022, 08/07/2021, 10/25/2020, Additional history exists CKD HGB USE SMARTSET 42601 02/13/202402/12, 02/12/2023, 12/13/2022, Additional history exists Depression [...] Power of Attor aimee? No Care Teams Creel Operator Relationship Specialty Start Date End Date Jonathan Lan MD [address] [place] [address] PCP - General Family Medicine 08/15/12 documented as of this encounter
--- OUTSIDE RECORDS SUMMARY | 2023-07-20 22:50 | External Medical Summary | Summary of Care ---
Author Name Unknown Organization [facility] Address [address] [facility] [place] [place] [address] Phone [phone] Care Team Providers Care Hunting Sales Leader Name Role Phone Jonathan Lan MD Primary Care Provider [phone] Reason for Referral * Ancillary Services (Within 30 days (routine)) - Authorized Specialty Diagnoses / Procedures Referred By Eufemia cooper Referred To Contact Gastroenterology Diagnoses Dysphagia, unspecified type Jonathan Lan MD [address] [place] [address] Referral ID Status Reason Start Date Expiration Date Visits Requested Visits Authorized [id number] Authorized Ancillary Services Required 06/29/2023 999 999 Question Answer Referral Priority Within 30 days (routine) Where should this appointment be scheduled? [facility] Comments Upper Endoscopy ASGE Guidelines dysphagia ADDITIONAL INFORMATION 1. Is the patient on Coumadin? No 2. Is the patient on Pradaxa? No Encounter Details Date Type Department Care Team (Late st Contact Info) Description 06/29/2023 Telephone [facility] [address] [place] [address] Jonathan Lan MD [address] [place] [address] Allergies Active Allergy Reactions Criticality [...] mRNA, LNP-s, No Pre serve, 2-Dose Series ([employer]) 01/18/2021,05/13/2020,04/22/2020 Influenza, Whole Virus 02/03/2000,12/02/1998 Pneumococcal Conjugate [...] encounter Miscellaneous Notes * Telephone Encounter - Zuleyma Sun OSA [...] You are scheduled to do colonoscopy at [place] in September. This is a 5 year [...] 07/05/2023 3:40 PM EDT Office Visit Neurology [facility] [place] [address] [facility] [place] [address] Riya Mendez MD [address] [facility] [place] [place] [address] 09/17/2023 9:18 AM EDT Hospital Encounter OR [facility], Operating Room, [facility] - 4th Floor [address] [place] [address] Yasmin Palma, DO [address] [place] [address] 09/17/2023 9:18 AM EDT - 09/17/2023 9:48 AM EDT Surgery OR [facility], Operating Room, [facility] - 4th Floor [address] [place] [address] Yasmin Palma, DO [address] [place] [address] ESOPHAGOGASTRODUODENOSCOPY (EGD), FLEXIBLE, TRANSORAL, DIAGNOSTIC 10/31/2023 2:00 PM EDT Office Visit [address] [address] Jonathan Lan MD [address] [place] [address] 10/31/2023 4:00 PM EDT Office Visit Urology, [facility] [address] [place] [address] Ronan Tejada MD [address] [place] [address] [place] [address] 04/18/2024 2:00 PM EDT Nurse Only Ancillary Department, [address] [address] [place], Nurse [facility] [address] [place] [address] Scheduled Procedures Name Priority Associated Diagnoses Date/Ti [...] Monitoring 06/22/2020 06/23/2019 CKD PHOS USE SMARTSET 53856 09/20/202209/05, 01/18/2021, 06/23/2019, Additional history exists COVID-19 Vaccine ( season) 2022 01/18/2021, 06/05/2020, 05/13/2020, Additional history exists HbA1c 12/27/2022 06/26/2022, 11/0 07/2019, 12/18/2018, Additional history exists Albumin/Creatinine Ratio 06/27/2023 023, 06/10/2018, 06/26/2017, Additional history exists TSH 06/27/2023 06/26/2022, 09/05, 10/25/2020, Additional history exists CKD HGB USE SMARTSET 24551 02/13/202402/12, 02/12/2023, 12/13/2022, Additional history exists Depression [...] Power of Attor aimee? No Care Teams Hunting Sales Leader Relationship Specialty Start Date End Date Jonathan Lan MD [address] [place] [address] PCP - General Family Medicine 08/15/12 documented as of this encounter
--- OUTSIDE RECORDS SUMMARY | 2023-07-20 22:50 | External Medical Summary | Summary of Care ---
Author Name Unknown Organization [facility] Address [address] [facility] [place] [address] Phone [phone] Care Team Providers Care Machinist Class B Name Role Phone Jonathan Lan MD Primary Care Provider [phone] Reason for Visit * Reason Comments Follow Up Pt states that he is here for a 6 month return Encounter Details Date Type Department Care Team (Late st Contact Info) Description 06/27/2023 6:00 PM EDT Office Visit [place] [address] [place] [address] Jonathan Lan MD [address] [place] [address] Radiation proctitis*; Right-sided low back pain with right-sided sciatica, unspecified chronicity Allergies Active Allergy Reactions Criticality Noted Date [...] as of this encounter (statuses as of 06/27/2023) Medications Medication Sig Dispensed Refills Start Date [...] as of this encounter (statuses as of 06/27/2023) Active Problems Problem Noted Date Diagnosed Date [...] as of this encounter (statuses as of 06/27/2023) Resolved Problems Problem Noted Date Diagnosed Date [...] as of this encounter (statuses as of 06/27/2023) Immunizations Name Administration Dates Next Due COVID-19 mRNA, LNP-s, No Pre serve, 2-Dose Series ([employer]) 01/18/2021,05/13/2020,04/22/2020 Pneumococcal Conjugate Vacc, 13 Valent (Prevnar) [...] Smokeless Tobacco: Former Snuff, Chew Quit: 02/13/2007 Tobacco Cessation:Counseling Given: Not Answered Comments:Doesn't chew, use snuff, or smoke anymore Passive Exposure Comments:Father smoked [...] Sign Reading Time Taken Comments Blood Pressure 126/78 06/27/2023 5:52 PM EDT Pulse 96 06/27/2023 5:52 PM EDT Temperature 36.2 C (97.1 F) 06/27/2023 5:52 PM ED T Respiratory Rate 18 06/27/2023 5:52 PM EDT Oxygen Saturation 98% 06/27/2023 5:52 PM EDT Inhaled Oxygen Concentration - - Weight 89.6 kg (197 lb 9.6 oz) 06/27/2023 5:52 P M EDT Height 180.3 cm (5' 11") 06/27/2023 5:52 PM EDT Body Mass Index 27.56 06/27/2023 5:52 PM EDT documented in this [...] as of this encounter Progress Notes * Jonathan Lan MD - 06/27/2023 7:11 PM EDT Subjective: Parth Jett is a 88 year old male. Chief Complaint Patient presents with Follow Up Pt states that he is here for a 6 month return HPI: 88-year-old seen today as a six-month return visit. He continues with some of the same chronicissues: Continued low back pain with right-sided sciatica. He is worked with a number of physical therapy sessions in continues right now with home health doing physical therapy. Also has [facility]pain management at both [facility] and [facility]. Has seen spinal surgeon who (actually the surgeons flaquito solorzano video production assistant) felt that his only chance of improvement would be was surgery in did not feel ablation would be helpful. But also noted that at his age with his medical problems that doing surgery would be questionable. He is done Um narcotics which at this time he is off of completely because of increase sedation confusion in fall risk. He has done gabapentin is off this medication. He has not done muscle relaxers nor Lyrica. Additionally he has ongoing problems with dysphagia. He was seeing ALONA Dias with last visit in February. He had had upper endoscopy which was unrevealing. Plan was to proceed with motility study of his esophagus but it does not look like that was ever scheduled. He actually scheduled for c olonoscopy in [facility] in September. 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 These did require argon treatment with Dr. Palma. He has not had any rectal bleeding in the last 5 years that he can recall. Patient Active Problem List Diagnosis Diaphragmatic hernia [...] without rupture (HCC) History of subdural hematoma Current Outpatient Medications Medication Sig Dispense Refill [...] complications Imdur [Isosorbide Nitrate] Diarrhea, fatigue, myalgias Objective: BP 126/78 | Pulse 96 | Temp 36.2 C (97.1 F) (Temporal Artery) | Resp 18 | Ht 1.803 m (5' 11") |Wt 89.6 kg (197 lb 9.6 oz) | SpO2 98% | BMI 27.56 kg/m | BSA 2.12 m Physical Exam: CONST: alert, pleasant, no acute distress. He appears weak. Although he was easily able to get up off his exam chair onto the exam table. HEAD: normocephalic, atraumatic NECK: supple, soft, no adenopathy Eyes - PERRLA, EOM'I OROPHARYNX: clear, no swelling or erythema, moist CV: regular rate and rhythm, grade 3 over 6 systolic murmur CHEST: clear to auscultation bilaterally, no rales or wheezing ABD: soft, non tender, non distended, no masses or hepatosplenomegaly EXT: no edema, no joint swelling or deformities, NEURO: AAOx3, no gross focal deficits, cerebellar signs normal, affect appropriate MENTAL STATUS: no evidence of thought disorder, no delusional thought, no evidence of paranoia, thought is non-tangential. SKIN: no rash or significant lesions ASSESSMENT/PLAN: Radiation proctitis (Primary)-history of. Has not had any symptoms related to radiation proctitis in years. Right-sided low back pain with right-sided sciatica, unspecified chronicity: Um do not think that he would be a good candidate for surgery at his age in his limited activity for number of years. Additionally medical problems including at least moderate aortic stenosis and Um CKD 3 and diabetes. Will try Lyrica beginning with 50 mg daily and after 2 weeks increase into 100 mg-50 mg twice a day. - Pregabalin 50 MG Oral Capsule (Lyrica); 1 cap daily x 2 weeks then 1 cap twice daily Reassess in [address] Palma indicated I did not think that Parth needed routine colonoscopy but wanted Dr. Palma's input. Additionally I wanted Dr. Palma to know that the patient was to be scheduled formotility esophageal study but it does not look like that was ever done in I was not sure how to proceed. Follow Up: Return in about 4 months (around 10/28/2023) for Return with Physician. | For: Return with Physician Jonathan Lan MD documented in this encounter Nursing Notes * Tammy Hernandez LPN - 06/27/2023 5:52 PM EDT Parth Jett is a 88 year old male who presents today for Chief Complaint Patient presents with Follow Up Pt states that he is here for a 6 month return documented in this encounter Plan of Treatment Upcoming Encounters Date Type Department Care Team (Latest Contact Info) Description 07/05/2023 3:40 PM EDT Office Visit Neurology [facility] [address] [facility] [place] [address] Riya Mendez MD [address] [facility] [place] [address] 09/17/2023 9:18 AM EDT Hospital Encounter OR [facility], Operating Room, [facility] - 4th Floor [address] [place] [address] Yasmin Palma, DO [address] [place] [address] 09/17/2023 9:18 AM EDT - 09/17/2023 9:58 AM EDT Surgery OR [facility], Operating Room, [facility] - 4th Floor [address] [place] [address] Yasmin Palma, DO [address] [place] [address] COLONOSCOPY FLEXIBLE PROXIMAL DIAGNOSTIC 10/31/2023 2:00 PM EDT Office Visit [facility] [address] [place] [phone] Jonathan Lan MD [address] [facility] [place] [id number] 10/31/2023 4:00 PM EDT Office Visit Urology, [facility] [address] [place] [address] Ronan Tejada MD [address] [place] [address] [place] [address] 04/18/2024 2:00 PM EDT Nurse Only Ancillary Department, [place] [address] [facility] [place] [id number] [place] Nurse [facility] [address] [facility] [place] [id number] Scheduled Procedures Name Priority Associated Diagnoses Date/Ti me COLONOSCOPY FLEXIBLE PROXIMAL DIAGNOSTIC Change in bowel habits 09/17/2023 9:18 AM EDT COLONOSCOPY FLEXIBLE PROXIMAL DIAGNOSTIC Recall Inflammatory polyps of colon with rectal bleeding Diverticulosis COLONOSCOPY FLEXIBLE PROXIMAL DIAGNOSTIC Recall H/O colonoscopy Health Maintenance Due Date Last Done Comments Zoster Vaccines (1 of 2) 1986 AAA Monitoring 06/22/2020 06/23/2019 CKD PHOS USE SMARTSET 14411 09/20/202209/05, 01/18/2021, 06/23/2019, Additional history exists COVID-19 Vaccine ( season) 2022 01/18/2021, 06/05/2020, 05/13/2020, Additional history exists HbA1c 12/27/2022 06/26/2022, 11/0 07/2019, 12/18/2018, Additional history exists Albumin/Creatinine Ratio 06/27/2023 023, 06/10/2018, 06/26/2017, Additional history exists TSH 06/27/2023 06/26/2022, 09/05, 10/25/2020, Additional history exists CKD HGB USE SMARTSET 33099 02/13/202402/12, 02/12/2023, 12/13/2022, Additional history exists Depression [...] as of this encounter Visit Diagnoses Diagnosis Radiation proctitis- Primary Other specified disorder of rectum and anus Right-sided low back pain with right-sided sciatica, unspecified chronicity Change in bowel habits Other symptoms involving [...] Power of Attor aimee? No Care Teams Machinist Class B Relationship Specialty Start Date End Date Jonathan Lan MD [address] [facility] [place] [address] PCP - General Family Medicine 08/15/12 documented as of this encounter
--- OUTSIDE RECORDS SUMMARY | 2023-07-20 22:51 | External Medical Summary | Summary of Care ---
Author Name Unknown Organization [facility] Address [address] [facility] [place] [address] Phone [phone] Care Team Providers Care Reimbursement Analyst Name Role Phone Jonathan Lan MD Primary Care Provider [phone] Reason for Visit * Reason Onset Date Comments Home Health 12/18/2022 Encounter Details Date Type Department Care Team (Late st Contact Info) Description 12/18/2022 Telephone [facility] [address] [place] [address] Jonathan Lan MD [address] [place] [address] Home Health Allergies Active Allergy Reactions Criticality Noted Date [...] as of this encounter (statuses as of 03/19/2023) Medications Medication Sig Dispensed Refills Start Date End Date Status MULTIVITAMINS PO TABS daily 0 Active VITAMIN D 1000 UNITS PO TABS 1 tab daily 0 Active hydrocortisone acetate (ANUSOL HC) 25 MG suppository Administer 1 Suppository into the rectum at bedtime. 12 Suppository 3 05/27/19 17 Active Meclizine HCl 25 MG Oral Tablet (ANTIVERT)Indicati ons:Vertigo Take 1 Tab by mouth 3 times a day as needed for Dizziness. 90 Tab 1 01/06/20 20 Active Triamcinolone Acetonide 0.1 % External Lotion (Aristocort)Indica tions:Irritant contact dermatitis due to plants, except food Apply topically to affected area 2 times a day. Apply topically to affected area 2 times a day.Apply topically to affected area 2 times a day. 60 mL 1 07/16/19 21 Active Acetaminophen 500 MG Oral Tablet Take 1 Tablet by mouth every 6 hours as needed. 0 Active Tamsulosin HCl 0.4 MG Oral Capsule (Flomax) TAKE 1 CAPSULE BY MOUTH EVERY DAY 90 Capsule 3 08/08/19 23 Active Vitamin B12 1000 MCG Oral Tablet Extended ReleaseIndications :Vitamin B12 deficiency Take one daily 0 08/24/19 23 Active Finasteride 5 MG Oral Tablet (Proscar)Indicatio ns:Hematuria, gross,BPH with obstruction/lower urinary tract symptoms TAKE 1 TABLET BY MOUTH EVERY DAY IN THE MORNING 90 Tablet 3 09/06/19 23 Active Rosuvastatin Calcium 10 MG Oral Tablet (Crestor) TAKE 1 TABLET BY MOUTH EVERY DAY 90 Tablet 3 09/22/19 23 Active Omeprazole 20 MG Oral Capsule Delayed Release (PriLOSEC)Indicati ons:Esophagitis TAKE 1 CAP BY MOUTH DAILY. 1 HOUR BEFORE THE FIRST MEAL OF THE DAY 90 Capsule 2 10/14/19 23 Active Levothyroxine Sodium 75 MCG Oral Tablet (Levoxyl)Indicatio ns:Acquired hypothyroidism TAKE 1 TABLET BY MOUTH DAILY. (AT LEAST 30 MIN PRIOR TO BREAKFAST OR OTHER MEDS) 90 Tablet 2 10/14/19 23 Active DULoxetine HCl 60 MG Oral Capsule Delayed Release Particles (Cymbalta)Indicati ons:Left sided sciatica Take 1 Capsule by mouth in the morning. Do not cut, crush or chew. 90 Capsule 1 07/27/19 23 023 Discontinued Metoprolol Succinate ER 50 MG Oral Tablet Extended Release 24 Hour (toPROL XL)Indications:HTN , goal below 140/90 Take 1 Tablet by mouth in the morning. 90 Tablet 5 08/11/19 23 023 Discontinued(Re fill) Docusate Sodium 100 MG Oral Capsule (Colace) Take 1 Capsule by mouth in the morning and 1 Capsule before bedtime. 10 Capsule 0 12/06/19 23 024 Discontinued buPROPion HCl ER (XL) 150 MG Oral Tablet Extended Release 24 Hour (Wellbutrin XL) Take 1 Tablet by mouth in the morning. 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 02/28/2023 Subdural hematoma 12/03/2022 Fall 12/03/2022 Diabetes mellitus without complication 2 [...] ORGANIC ORIGN 05/27/2012 Left sided sciatica 04/12/2012 Cerebellar hemorrhage, acute 11/01/2011 Dyslipidemia, goal LDL below 100 06/21/2011 Internal [...] as of this encounter (statuses as of 03/19/2023) Resolved Problems Problem Noted Date Diagnosed Date Resolved Date Prediabetes 03/20/2017 11/18/2020 Overview: Per Prediabetes protocol #1 Eczema 04/19/2016 08/02/2016 Kidney disease, chronic, sta ge III (GFR 30-59 ml/min) 07/12/2015 12/18/2019 Overview: Per CKD protocol #1 DM type 2, goal: symptom mgmt 02/13/2013 08/23/2016 CKD (chronic kidney disease), stage III 02/21/2011 04/20/2014 Overview: gfr 54.1 Other specified hypothyroidism 04/26/2006 06/27/2017 Tobacco use disorder 03/18/2004 012 Viral warts 11/15/2010 Overview: ICD-10 update of inactive term IMPOTENCE, ORGANIC ORIGN Obstructive sleep apnea 02/05 Overview: ICD-10 update of inactive term Generalized osteoarthritis 0 02/21/2013 Other seborrheic keratosis 0 08/02/2016 Adrenal insufficiency 2016 documented as of this encounter (statuses as of 03/19/2023) Immunizations Name Administration Dates Next Due COVID-19 mRNA, LNP-s, No Pre serve, 2-Dose Series (TrustedID) 01/18/2021,05/13/2020,04/22/2020 Pneumococcal Conjugate Vacc, 13 Valent (Prevnar) [...] Date Smoking Tobacco: Former Cigarettes 1 20 Q uit: 02/13/1991 Passive Smoke Exposure: Past Smokeless Tobacco: Former Snuff, Chew Quit: 02/13/2007 Comments:Doesn't chew, use s nuff, or smoke anymore Passive Exposure Comments:Father smoked cigars Alcohol Use Standard Drinks/Week Comments Not Currently 2 (1 standard drink = 0.6 oz pur e alcohol) PHQ-2 Answer Date Recorded PHQ Adult Total Score 5 03/13/2022 Hunger Vital Sign Answer Date Recorded Within the past 12 months, y ou worried that your food would run out before you got the money to buy more. Never true 12/19/19 23 Within the past 12 months, t he food you bought just didn't last and you didn't have money to get more. Never true 12/18/2022 Sex and Gender Information Value Date Recorded [...] encounter Miscellaneous Notes * Telephone Encounter - Gogo Cee LPN - 12/18/2022 8:27 AM EST AdmissionLois RN, Calling from: Martin Patient was Admitted to: [facility], and discharge over the weekend Referral received for: Long-Term and PT Planned start of care date:Yes, Date 12/17 Start of care completed on: 12/17 Report/Concerns of:None Symptoms: none Next PT visit(s) on 12/19 They will call with any updates or additional concerns from the upcoming HH visit. Last Office Visit: 06/21/2022 Has patient been scheduled or seen in the office for a follow up visit: Yes- on12/25 Advised that orders will be signed by Dr Lan and to fax to the office for signature. documented in this encounter Plan of Treatment Upcoming Encounters Date Type Department Care Team (Late st Contact Info) Description 03/20/2023 2:00 PM EST Nurse Only Ancillary Department, [facility] [address] [place] [address] [facility] [address] [place] [address] 04/16/2023 4:15 PM EDT Office Visit Urology, [facility] [address] [facility] [place] [address] Ronan Tejada MD [address] [place] [address] 06/25/2023 2:00 PM EDT Office Visit Family [facility] [address] [place] [id number] Jonathan Lan MD [address] [place] [address] 07/05/2023 3:40 PM EDT Office Visit Neurology [facility] [address] [place] [address] Riya Mendez MD [address] [place] [address] 08/01/2023 8:30 AM EDT Procedure Only Endoscopy, [facility] [address] [facility] [place] [address] Yasmin Palma DO [address] [facility] [place] [address] Scheduled Procedures Name Priority Associated Diagnoses Date/Ti me COLONOSCOPY FLEXIBLE PROXIMA L DIAGNOSTIC Recall Inflammatory polyps of colon with rectal bleeding Diverticulosis COLONOSCOPY FLEXIBLE PROXIMA L DIAGNOSTIC Recall H/O colonoscopy Health Maintenance Due Date Last Done Comments Zoster Vaccines (1 of 2) 1986 Hepatitis B (1 of 3 - Risk 3-dose series) 1996 AAA Monitoring 06/22/2020 06/23/2019 Diabetic Eye Exam 11/25/2021 11/25/2020, , 05/31/2017, Additional history exists CKD PHOS USE SMARTSET 41059 09/20/202209/05, 01/18/2021, 06/23/2019, Additional history exists COVID-19 Vaccine ( season) 2022 01/18/2021, 06/05/2020, 05/13/2020, Additional history exists HbA1c 12/27/2022 06/26/2022, 11/0 07/2019, 12/18/2018, Additional history exists Depression Screening 03/13/2023 03/13/2022 Diabetic Foot Exam 03/13/2023 03/13/2022, 1 , 11/27/2014, Additional history exists Albumin/Creatinine Ratio 06/27/2023 023, 06/10/2018, 06/26/2017, Additional history exists TSH 06/27/2023 06/26/2022, 09/05, 10/25/2020, Additional history exists CKD HGB USE SMARTSET 73589 02/13/202402/12, 02/12/2023, 12/13/2022, Additional history exists DTaP,Tdap,and Td Vaccines (3 [...] the patient have Health Care Power of Sterile Instrument Technician? No Care Teams Reimbursement Analyst Relationship Specialty Start Date End Date Jonathan Lan MD [address] [place] [address] PCP - General Family Medicine 08/15/12 documented as of this encounter
--- OUTSIDE RECORDS SUMMARY | 2023-07-20 22:51 | External Medical Summary | Summary of Care ---
Author Name Unknown Organization [facility] Address [address] [place] [place] [address] Phone [phone] Care Team Providers Care Supervisor Mechanic Boilermaking Name Role Phone Jonathan Lan MD Primary Care Provider [phone] Reason for Visit * Reason Comments NEW PATIENT * Evaluate & Treat - Unlimited Visits (Within 30 days (routine)) - Authorized Specialty Diagnoses / Procedures Referred By Contsantosh t Referred To Contact Vascular Surgery / Cardiovascular Surgery Diagnoses Asymptomatic carotid artery stenosis, unspecified laterality Jonathan Truong CRNP [address] [place] [address] Referral ID Status Reason Start Date Expiration Date Visits Requested Visits Authorized [id number] Authorized Specialty Services Required [id number] [phone] Encounter Details Date Type Department Care Team (Late st Contact Info) Description 02/28/2023 12:30 PM EST Office Visit Vascular Surgery, [facility] [address] [facility] [place] [address] Scot Ludwig MD [address], [place] [id number] Carotid stenosis, right*; Juxtarenal abdominal aortic aneurysm (AAA) without rupture (HCC); Stage 3a chronic kidney disease; HTN, goal below 140/90; Dyslipidemia, goal LDL below 100 Allergies Active Allergy Reactions Criticality Noted Date [...] as of this encounter (statuses as of 02/28/2023) Medications Medication Sig Dispensed Refills Start Date End Date Status MULTIVITAMINS PO TABS daily 0 Active VITAMIN D 1000 UNITS PO TABS 1 tab daily 0 Active hydrocortisone acetate (ANUSOL HC) 25 MG suppository Administer 1 Suppository into the rectum at bedtime. 12 Suppository 3 7 Active Meclizine HCl 25 MG Oral Tablet (ANTIVERT)Indicati ons:Vertigo Take 1 Tab by mouth 3 times a day as needed for Dizziness. 90 Tab 1 0 Active Triamcinolone Acetonide 0.1 % External Lotion (Aristocort)Indica tions:Irritant contact dermatitis due to plants, except food Apply topically to affected area 2 times a day. Apply topically to affected area 2 times a day.Apply topically to affected area 2 times a day. 60 mL 1 1 Active Acetaminophen 500 MG Oral Tablet Take 1 Tablet by mouth every 6 hours as needed. 0 Active Tamsulosin HCl 0.4 MG Oral Capsule (Flomax) TAKE 1 CAPSULE BY MOUTH EVERY DAY 90 Capsule 3 3 Active Vitamin B12 1000 MCG Oral Tablet Extended ReleaseIndications :Vitamin B12 deficiency Take one daily 0 3 Active Finasteride 5 MG Oral Tablet (Proscar)Indicatio ns:Hematuria, gross,BPH with obstruction/lower urinary tract symptoms TAKE 1 TABLET BY MOUTH EVERY DAY IN THE MORNING 90 Tablet 3 3 Active Rosuvastatin Calcium 10 MG Oral Tablet (Crestor) TAKE 1 TABLET BY MOUTH EVERY DAY 90 Tablet 3 3 Active Omeprazole 20 MG Oral Capsule Delayed Release (PriLOSEC)Indicati ons:Esophagitis TAKE 1 CAP BY MOUTH DAILY. 1 HOUR BEFORE THE FIRST MEAL OF THE DAY 90 Capsule 2 3 Active Levothyroxine Sodium 75 MCG Oral [...] OR CHEW. 90 Capsule 1 3 Active AMBULATORY MISCELLANEOUS MEDICATION Apply 1-2 pumps (10-20mg) to affected area 1-2 times per day or as directed 90 g 3 3 Active buPROPion HCl ER (XL) 150 MG Oral Tablet Extended Release 24 Hour (Wellbutrin XL) Take 1 Tablet by mouth in the morning. 90 Tablet 1 3 Active Metoprolol Succinate ER 50 MG Oral Tablet Extended Release 24 Hour (toPROL XL)Indications:HTN , goal below 140/90 Take 1 Tablet by mouth in the morning. 90 Tablet 5 4 Active Docusate Sodium 100 MG Oral Capsule (Colace) Take 1 Capsule by mouth in the morning and 1 Capsule before bedtime. 10 Capsule 0 3 024 Discontinued documented as of this encounter (statuses as of 02/28/2023) Active Problems Problem Noted Date Diagnosed Date [...] as of this encounter (statuses as of 02/28/2023) Resolved Problems Problem Noted Date Diagnosed Date [...] as of this encounter (statuses as of 02/28/2023) Immunizations Name Administration Dates Next Due COVID-19 mRNA, LNP-s, No Pre serve, 2-Dose Series (Aptara) 01/18/2021,05/13/2020,04/22/2020 Pneumococcal Conjugate Vacc, 13 Valent (Prevnar) [...] Snuff, Chew Quit: 02/13/2007 Tobacco Cessation:Counseling Given: No Comments:Doesn't chew, use snuff, or smoke anymore [...] Sign Reading Time Taken Comments Blood Pressure 118/68 02/28/2023 12:24 PM EST Pulse 78 02/28/2023 12:21 PM EST Temperature 35.7 C (96.2 F) 02/28/2023 12:[address] Respiratory Rate - - Oxygen Saturation - - Inhaled Oxygen Concentration - - Weight 84.5 kg (186 lb 4.8 oz) 02/28/2023 12:21 PM EST Height 182.9 cm (6') 02/28/2023 12:21 PM EST Body Mass Index 25.27 02/28/2023 12:21 PM EST documented in this encounter Functional Status Functional [...] as of this encounter Progress Notes * Praful Will PA-C - 02/28/2023 12:30 PM EST Date of Service: 02/28/2023 12:49 PM Parth Jett is a 87 year old male. Patient being seen in consultation at the request of Jonathan Lan MD Chief Complaint: New pt, carotid stenosis HPI: Pt admitted to [facility] 12/03-12/05/22 following FFS, suffered SDH CTA of H/N revealed ~ 50% stenosis of GENESIS Has fallen four times since he was hospitalized due to weak "wobbly" legs He has a walker at home which he uses some of the time Patient's PMH significant for former smoker, diaphragmatic hernia, esophagitis, HTN, prostate CA, dyslipidemia, ABDI, DM, gastroparesis, CKD IIIa CAROTID DISEASE: Patient denies recent TIA, recent stroke, and recent amaurosis fugax. FAMILY HISTORY: Family history is noncontributory. Current Outpatient Medications Medication Sig Dispense Refill MULTIVITAMINS PO TABS daily VITAMIN D 1000 UNITS PO TABS 1 tab daily hydrocortisone acetate (ANUSOL HC) 25 MG suppository Administer 1 Suppository into the rectum at bedtime. 12 Suppository 3 Meclizine HCl 25 MG Oral Tablet (ANTIVERT) Take 1 Tab by mouth 3 times a day as needed for Dizziness. 90 Tab 1 Triamcinolone Acetonide 0.1 % External Lotion (Aristocort) Apply topically to affected area 2 timesa day. Apply topically to affected area 2 times a day.Apply topically to affected area 2 times a day. 60 mL 1 Acetaminophen 500 MG Oral Tablet Take 1 [...] CUT, CRUSH OR CHEW. 90 Capsule 1 AMBULATORY MISCELLANEOUS MEDICATION Apply 1-2 pumps (10-20mg) to affected area 1-2 times per day oras directed 90 g 3 buPROPion HCl ER (XL) 150 MG Oral Tablet Extended Release 24 Hour (Wellbutrin XL) Take 1 Tablet by mouth in the morning. 90 Tablet 1 Metoprolol Succinate ER 50 MG Oral Tablet Extended Release 24 Hour (toPROL XL) Take 1 Tablet by mouth in the morning. 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 Severe obstructive sleep apnea G47.33 Hypothyroidism E03.9 Vitamin D deficiency E55.9 Lumbago M54.50 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 Radiation proctitis K62.7 History of adrenal insufficiency Z86.39 Gastroparesis K31.84 Stage 3a chronic kidney disease N18.31 Diabetes mellitus without complication (HCC) E11.9 Subdural hematoma ([facility]) S06.5XAA Fall W19.XXXA Carotid stenosis, right I65.21 Juxtarenal abdominal aortic aneurysm (AAA) without rupture ([facility]) I71.42 Past Medical History: Diagnosis Date Acute cerebellar hemorrhage ([facility]) 10/31/11 [facility] transferred to [facility] and decompressed Adrenal insufficiency ([facility]) [facility] Anemia Benign neoplasm of colon 10/10/05 3 X4 mm sessile polyps in rectum Cerebellar hemorrhage, acute ([facility]) 11/01/2011 CKD (chronic kidney disease), stage III ([facility]) 02/21/11 gfr 54.1 Diaphragmatic hernia Diverticulosis of colon 10/10/05 DM type 2, goal: symptom mgmt ([facility]) 02/13/2013 Dyslipidemia, goal LDL below [...] elisas were negative. 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/11 [facility] to [facility], Dr Ruano decompressed Viral warts, unspecified Past Surgical History: Procedure Laterality Date COLONOSCOPY COLONOSCOPY, DIAGNOSTIC (RECTUM) 10/17/2013 COLONOSCOPY FLEXIBLE PROXIMAL DIAGNOSTIC performed by Melvin Escobar MD at ENDOSCOPY [facility] COLONOSCOPY, DIAGNOSTIC (RECTUM) 06/07/2016 diverticulosis/[facility] COLONOSCOPY, DIAGNOSTIC (RECTUM) 08/29/2018 adenomatous polyp, radiation proctitis, diverticulosis / [facility] COLONOSCOPY, REMOVE LESION, W/SNARE 10/10/2005 3 4 [...] abnormalities, EF 55-59% EGD, FLEXIBLE, DIAGNOSTIC 06/07/2016 normal/[facility] EGD, FLEXIBLE, DIAGNOSTIC 08/29/2018 gastritis, Schatzki ring, hiatal hernia / [facility] EGD, FLEXIBLE, DIAGNOSTIC 05/05/2020 normal / [facility] EXPLORE/DECOMPRESS CRANIAL NERVES 11/01/2011 [facility] EXPLORE/DECOMPRESS CRANIAL NERVES 11/01/2011 CRANIECTOMY SUBOCCIPITAL EXPLORATION CRANIAL NERVES performed by Kofi Meza MD at OR [facility] FLUORO ESOPHAGRAM ENTIRE WO VIDEO 04/10/2001 EH with GERd INFORMATION 1997 laser destruction wart lower lip INJECT DX/THER SUBSTANCE INTERLAMINAR LUMBAR/SACRAL W IMAGE GUIDE 01/19/2020 INJECTION SPINE LUMBAR OR SACRAL performed by Cornelio Quan, DO at OR [facility] MRI ABDOMEN WO CONTRAST 12/27/2012 OPEN SKULL FOR EXPLORATION 11/28/2011 craniotomy to clean out pseudomeningocele, [facility], Dr Ruano REMOVAL OF APPENDIX REMOVAL OF APPENDIX UPPER GI ENDOSCOPY N/A 03/02/2022 [facility], EGD , z-line regular 42cm from incisors, normal scope / no specimens collected / VASC ANKLE BRACHIAL INDEX 08/16/2006 AMARI 1.1, normal Family History Problem Relation Age of Onset Diabetes Mother Cancer Mother liver Stroke Mother TIA Hypertension Mother Cirrhosis Mother Heart Disorder Father CHF Other (carotid artery disease) Brother Thyroid Disorder Other Social History Socioeconomic History Marital status: Spouse name: Bee Number of children: 2 Years of education: 12 Highest education level: Not on file Occupational History 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, 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73 Tobacco Use Smoking status: Former Packs/day: 1.00 Years: 20.00 Additional pack years: 0.00 Total pack years: 20.00 Types: Cigarettes Quit date: 02/13/1991 Years since quittin.0 Passive exposure: Past (Father smoked cigars) Smokeless tobacco: Former Types: Snuff, Chew Quit date: 02/13/2007 Tobacco comments: Doesn't chew, use snuff, or smoke anymore Vaping Use Vaping Use: Never used Substance and Sexual Activity Alcohol use: Not [...] on file Food Insecurity: No Food Insecurity (12/18/2022) Hunger Vital Sign Worried About Running Out of Food in the Last Year: Never true Ran Out of Food in the Last Year: Never true Transportation Needs: Not on file Physical Activity: Not on file Stress: Not on file Social Connections: Not on file Intimate Partner Violence: Not on file Housing Stability: Not on file COMPLETE REVIEW OF SYSTEMS: Cardiovascular: Negative for chest pain, shortness of breath, palpitations, angina or OR Neurological: Negative for stroke, TIA, amaurosis fugax All other systems negative except for those noted above and in the history of present illness (HPI). GENERAL MULTI-SYSTEM PHYSICAL EXAM: VITAL SIGNS: BP 118/68 (BP Site: Left Arm, BP Position: Sitting, BP Cuff Size: Regular) | Pulse 78 | Temp 35.7 C (96.2 F) (Temporal Artery) | Ht 1.829 m (6') | Wt 84.5 kg (186 lb 4.8 oz) | BMI 25.27 kg/m | BSA 2.07 m GENERAL MULTI-SYSTEM PHYSICAL EXAM:ADDITIONAL VS: pulse regular. GENERAL: Normal grooming habits, no acute distress, and appears stated age. NECK: No masses and Normal Thyroid. RESPIRATORY: respiratory effort normal and breath sounds normal. CARDIOVASCULAR: no edema, yes varicosities of LLE, and yes to soft pansystolic murmur. GASTROINTESTINAL: no tenderness, protuberant, and abdominal aorta not palpable. LYMPHATIC: cervical lymph nodes normal and inguinial lymph nodes normal. SKIN: no ulcers, no rash, no induration, capillary refill normal, and no dependent rubor. PSYCHIATRIC: orientation to time, place and person normal and recent and remote memory normal. EYES: conjunctivae normal, eye lids normal, pupils normal, and irises normal. NEUROLOGIC: Cranial nerves intact, Motor function intact, and Sensory exam intact PULSE SCALE: Carotid Right:----Bruit: No Left:----Bruit: No Radial Right: 3 Left: 3 Femoral Right: 3 Left: 3 Popliteal Right: 3 Left: 3 Dorsalis Pedis Right: 3 Left: 3 Posterior Tibial Right: 2 Left: 2 PULSE SCALE: 4=Aneurysmal; 3=Normal; 2=Diminished; 1=Barely Palpable; 0=Absent DIAGNOSTIC STUDIES: 12/03/22 CTA H/N: ~50% GENESIS narrowing w/out calcified plaque, no stenosis of LICA 12/03/22 CTA C/A/P: 3.7 cm ATAA, 3.0 cm prox DTAA extending into perivisceral abd aorta w/ extensive plaque and thrombosis of descending and abd aorta, no AAA. 2.0 cm proximal RCIA, 2.1 cm distal LCIA 09/23/12 Carotid Duplex: Less than 50% B/L carotid stenosis The above vascular lab and CT scan images were directly visualized and independently interpreted byme on 02/28/23 with results as above. LABS: Lab Results Component Value Date/Time CREATININE 0.8 01/28/1996 12:15 PM CREATININE - [facility] 1.2 02/12/2023 04:22 PM CREATININE - [facility] 1.3 (H) 01/04/2023 01:54 PM CREATININE - [facility] 1.1 12/13/2022 06:30 AM CREATININE - [facility] 1.3 (H) 02/02/2020 04:06 PM CREATININE - [facility] 1.3 (H) 12/12/2019 12:53 PM CREATININE - [facility] 1.3 (H) 06/23/2019 03:14 PM CREATININE, RANDOM URINE - [facility] 193 06/26/2022 08:58 AM CREATININE, RANDOM URINE - [facility] 174 06/10/2018 09:06 AM CREATININE, RANDOM URINE - [facility] 315 06/26/2017 09:42 AM CREATININE, RANDOM URINE - [facility] 487 06/09/2014 09:31 AM CREATININE-OUTSIDE LAB 1.20 12/09/2015 12:00 AM CREATININE-OUTSIDE LAB 1.20 11/16/2015 12:00 AM CREATININE-OUTSIDE LAB 1.61 (A) 08/25/2014 12:00 AM Lab Results Component Value Date/Time LDL CHOLESTEROL (CALCULATED) - [facility] 61 04/28/2021 11:44 AM LDL CHOLESTEROL (CALCULATED) - [facility] 113 06/10/2018 09:06 AM LDL CHOLESTEROL (DIRECT MEASURE) - [facility] 129 10/25/2020 03:17 PM LDL CHOLESTEROL (DIRECT MEASURE) - [facility] 111 06/23/2019 03:14 PM LDL CHOLESTEROL (DIRECT MEASURE) - [facility] 105 03/04/2014 02:42 PM Lab Results Component Value Date/Time HEMOGLOBIN A1C - [facility] 6.3 (H) 06/26/2022 08:58 AM HEMOGLOBIN A1C - [facility] 6.0 (H) 12/12/2019 12:53 PM The above clinical labs were reviewed by me on 02/28/23 IMPRESSIONS: Asymptomatic ~ 50% (by CTA H/N) GENESIS stenosis No stenosis of LICA 3.7 cm ATAA 3.0 cm DTAA extending into periversical abd aorta w/ extensive thrombus 2.0 cm B/L CIAs No AAA Recent FFS, suffered SDH Former smoker Diaphragmatic hernia Esophagitis HTN Prostate CA Dyslipidemia ABDI DM Gastroparesis CKD IIIa PLAN: The patient was counseled regarding the pathophysiology and natural history of carotid disease, as well as the symptoms of CVA/TIA/amaurosis fugax. Pt is asymptomatic, no indication for surgical intervention Continue medical management Aneurysms below threshold for surgical intervention Continue medical management Given small size do not suggest further imaging Pt had OP F/U with Neurology and Neurosurg end of Dec 2022. Suggested to continue to stay off Aspirin due to multiple falls Continue Crestor 10 mg for dyslipidemia/hyperlipidemia/pleiotropic benefits The patient was seen and examined with Scot Ludwig MD. Praful Will PA-C Section of Vascular [place] [address] [phone] I have reviewed the advanced practitioner's documentation, and I agree with, and take responsibility for the plan of care. He had a fall in Nov 2022 leading to SDH Since that fall he has had four more No aspirin since November He uses a walker at times Testing reveals small thoracic aneurysm and 50% carotid stenosis Needs no vascular f/u Encouraged use of walker all the time Scot Ludwig MD Section of Vascular [place] [address] [phone] documented in this encounter Nursing Notes * Diana Platt LPN - 02/28/2023 12:26 PM EST Reviewed the option of transferring scripts to [facility] pharmacy with patient and / or family. Patient was instructed to not get up on the exam table/exam chair until directed and assisted by their provider; patient is to remain seated in the chair/ wheelchair/ exam table/ exam chair for fall prevention and safety reasons. Patient is aware to have assistance to step down off exam table/exam chair with personnel. Patient voiced full comprehension of instructions. Diana Platt LPN documented in this encounter Plan of Treatment Upcoming Encounters Date Type Department Care Team (Late st Contact Info) Description 02/28/2023 2:15 PM EST Imaging Radiology [facility] [address] [facility] [place] [address] 03/01/2023 1:00 PM EST Office Visit Gastroenterology, [facility] [address] [facility] [place] [address] Urszula Hoffmann CRNP [address] [facility] [place] [address] 03/20/2023 2:00 PM EST Nurse Only Ancillary Department, [place] [address] [facility] [address] [place], Nurse [facility] [address] [facility] [place] [address] 04/16/2023 4:15 PM EDT Office Visit Urology, [facility] [address] [facility] [place] [address] Ronan Tejada MD [address] [facility] [address] [place] [address] 06/25/2023 2:00 PM EDT Office Visit Family [facility], [place] [address] [facility] [id number] Jonathan Lan MD [address] [place], [place] [id number] 07/05/2023 3:40 PM EDT Office Visit Neurology [facility] [address] [facility] [place] [address] Riya Mendez MD [address] [facility] [place], [place] [address] Scheduled Procedures Name Priority Associated Diagnoses Date/Ti me COLONOSCOPY FLEXIBLE PROXIMA L DIAGNOSTIC Recall Inflammatory polyps of colon with rectal bleeding Diverticulosis COLONOSCOPY FLEXIBLE PROXIMA L DIAGNOSTIC Recall H/O colonoscopy Health Maintenance Due Date Last Done Comments Zoster Vaccines (1 of 2) 1986 Hepatitis B (1 of 3 - Risk 3-dose series) 1996 AAA Monitoring 06/22/2020 06/23/2019 Diabetic Eye Exam 11/25/2021 11/25/2020, , 05/25/2016, Additional history exists CKD PHOS USE SMARTSET 59628 09/20/202209/05, 01/18/2021, 06/23/2019, Additional history exists COVID-19 Vaccine ( season) 2022 01/18/2021, 06/05/2020, 05/13/2020, Additional history exists HbA1c 12/27/2022 06/26/2022, 11/07/2019, 12/18/2018, Additional history exists Depression Screening 03/13/2023 03/13/2022 Diabetic Foot Exam 03/13/2023 03/13/2022, 1 , 11/27/2014, Additional history exists Albumin/Creatinine Ratio 06/27/2023 023, 06/10/2018, 06/26/2017, Additional history exists TSH 06/27/2023 06/26/2022, 09/05, 10/25/2020, Additional history exists CKD HGB USE SMARTSET 76091 02/13/202402/12, 02/12/2023, 12/13/2022, Additional history exists DTaP,Tdap,and [...] as of this encounter Visit Diagnoses Diagnosis Carotid stenosis, right- Primary Occlusion and stenosis of carotid artery without mention of cerebral infarction Juxtarenal abdominal aortic aneurysm (AAA) without rupture (HCC) Stage 3a chronic kidney disease HTN, goal below 140/90 Unspecified essential hypertension Dyslipidemia, goal LDL below 100 Other and unspecified hyperlipidemia documented in this encounter Advance Directives Latest [...] the patient have Health Care Power of Service Supervisor? No Care Teams Supervisor Mechanic Boilermaking Relationship Specialty Start Date End Date Jonathan Lan MD [address] [place] [address] PCP - General Family Medicine 08/15/12 documented as of this encounter
--- OUTSIDE RECORDS SUMMARY | 2023-07-20 22:51 | External Medical Summary | Summary of Care ---
Author Name Unknown Organization [facility] Address [address] [facility] [place] [address] Phone [phone] Care Team Providers Care Herpetologist Name Role Phone Jonathan Lan MD Primary Care Provider [phone] Reason for Referral * Evaluate & Treat - Unlimited Visits (Within 10 days (routine)) - Authorized Specialty Diagnoses / Procedures Referred By Eufemia cooper Referred To Contact Physical Therapy / Physical Medicine And Rehab Diagnoses At risk for falls Binh Cervantes MD [address] [place] [address] Referral ID Status Reason Start Date Expiration Date Visits Requested Visits Authorized [id number] Authorized Specialty Services Required 05/08/2023 999 999 Question Answer Referral Priority Within 10 days (routine) Where should this appointment be scheduled? [facility] Comments Home pt for balance, multiple falls Reason for Visit * Reason Comments Follow Up Patient is here toda y for a follow to discuss a recent fall. Patient states he fell about two weeks ago. Patient states he hit his head when he fell. Patient states he was recently in the hospital for a fall. Patient states he is having headaches, off balance, and soreness on the top of his head. Patient states he is having constant dizziness. Encounter Details Date Type Department Care Team (Late st Contact Info) Description 05/08/2023 1:00 PM EDT Office Visit [facility] [place] [address] [place] [address] Binh Cervantes MD [address] [place], [place] [id number] At risk for falls*; HTN, goal below 140/90; Carotid stenosis, right; History of subdural hematoma; Diabetes mellitus without complication (HCC) Allergies Active Allergy Reactions Criticality Noted Date [...] as of this encounter (statuses as of 05/08/2023) Medications Medication Sig Dispensed Refills Start Date End Date Status MULTIVITAMINS PO TABS daily 0 Active VITAMIN D 1000 UNITS PO TABS 1 tab daily 0 Active Meclizine HCl 25 MG Oral Tablet (ANTIVERT)Indicati ons:Vertigo Take 1 Tab by mouth 3 times a day as needed for Dizziness. 90 Tab 1 01/06/20 20 Active Acetaminophen 500 MG Oral Tablet Take [...] CUT, CRUSH OR CHEW. 90 Capsule 1 01/11/20 23 Active Metoprolol Succinate ER 25 MG Oral Tablet Extended Release 24 Hour (toPROL XL)Indications:HTN , goal below 140/90 Take 1 Tablet by mouth in the morning. 90 Tablet 3 05/08/19 24 Active hydrocortisone acetate (ANUSOL HC) 25 MG suppository Administer 1 Suppository into the rectum at bedtime. 12 Suppository 3 05/27/19 17 024 Discontinued(Me dication List Clean Up) Triamcinolone Acetonide 0.1 % External Lotion (Aristocort)Indica tions:Irritant contact dermatitis due to plants, except food Apply topically to affected area 2 times a day. Apply topically to affected area 2 times a day.Apply topically to affected area 2 times a day. 60 mL 1 07/16/19 21 024 Discontinued(Me dication List Clean Up) AMBULATORY MISCELLANEOUS MEDICATION Apply 1-2 pumps (10-20mg) to affected area 1-2 times per day or as directed 90 g 3 01/17/20 23 024 Discontinued(Me dication List Clean Up) buPROPion HCl ER (XL) 150 MG Oral Tablet Extended Release 24 Hour (Wellbutrin XL) Take 1 Tablet by mouth in the morning. 90 Tablet 1 01/23/20 23 024 Discontinued(Me dication List Clean Up) Metoprolol Succinate ER 50 MG Oral Tablet Extended Release 24 Hour (toPROL XL)Indications:HTN , goal below 140/90 Take 1 Tablet by mouth in the morning. 90 Tablet 5 02/07/19 24 024 Discontinued documented as of this encounter (statuses as of 05/08/2023) Active Problems Problem Noted Date Diagnosed Date [...] as of this encounter (statuses as of 05/08/2023) Resolved Problems Problem Noted Date Diagnosed Date [...] as of this encounter (statuses as of 05/08/2023) Immunizations Name Administration Dates Next Due COVID-19 mRNA, LNP-s, No Pre serve, 2-Dose Series ([employer]) 01/18/2021,05/13/2020,04/22/2020 Pneumococcal Conjugate Vacc, 13 Valent (Prevnar) [...] Sign Reading Time Taken Comments Blood Pressure 106/72 05/08/2023 1:07 PM EDT Pulse 81 05/08/2023 1:07 PM EDT Temperature 36.4 C (97.5 F) 05/08/2023 1:07 PM ED T Respiratory Rate 16 05/08/2023 1:07 PM EDT Oxygen Saturation 98% 05/08/2023 1:07 PM EDT Inhaled Oxygen Concentration - - Weight 86.2 kg (190 lb) 05/08/2023 1:07 PM EDT Height - - Body Mass Index 25.95 04/11/2023 2:39 PM EST documented in this encounter Functional Status Functional Status Response Date of Assess ment Are you deaf or do you have serious difficulty hearing? Yes 12/03/2022 Are you blind or do you have serious difficulty seeing, even when wearing glasses? No 12/03/2022 Does this person have serbonnieu s difficulty walking or climbing stairs? Yes-"He's [...] as of this encounter Progress Notes * Binh Cervantes MD - 05/08/2023 1:15 PM EDT Images from the original note were not included. Assessment and Plan Falls are multifactorial with orthostatic hypotension, head trauma, neuropathy, age all contributing. From his most recent specialists notes he is optimized. [facility] We will pull back his metoprolol to 25 mg daily as his falls often seem to be related to orthostatic hypotension in his blood pressure in office today is 106/72. We also discussed potential evaluation by the balance clinic in [place], however, given transportation issues we will hold off on this for now. He will follow up in the office in 6 weeks with PCP. 1. HTN, goal below 140/90 - Metoprolol Succinate ER 25 MG Oral Tablet Extended Release 24 Hour (toPROL XL); Take 1 Tablet by mouth in the morning. Dispense: 90 Tablet; Refill: 3 2. At risk for falls - PHYSICAL THERAPY REFERRAL OP 3. Carotid stenosis, right 4. History of subdural hematoma 5. Diabetes mellitus without complication (HCC) A1c 7.1 in 2013. Currently diet-controlled. - ALBUMIN / CREATININE RATIO, URINE; Future Wrap-Up Follow up as scheduled with PCP. History of Present Illness The patient is an 87-year-old male with past medical history of type 2 diabetes, dyslipidemia, hypothyroidism, hypertension, CKD stage IIIA, history of subdural hematoma who presents for follow up. Reviewed patient's recent past medical history. He was admitted to [facility] on 12/03/2022 after a fall from standing with resulting head trauma. He was found to have bilateral subdural hematomas. Neurosurgery was consulted during the hospitalization and recommended a repeat CT scan to confirm stability. He worked with PT/OT who cleared him for discharge on 12/05/2022. He was seen as an outpatient by Neurosurgery who recommended ongoing physical therapy for gait imbalance and lower extremity strengthening. He was cleared from a neurosurgical perspective at that visit. He was also seen by Neurology on 01/04/2023. No major changes were made by Neurosurgery other than making sure he was not B12 deficient. Plan was for six- month follow up. The patient was then seen on 02/12/2023 by his PCP. At that time he had had another recent fall with resulting dizziness on a daily basis. A repeat CT scan did not show any abnormalities. The patient was then seen by Vascular Surgery given 50% stenosis of the right internal carotid artery noted on imaging in November 2022. Neurosurgical intervention was indicated per their notes. Today presents for follow up as he has had 6 falls total since his hospitalization in November. His most recent was 2 weeks ago when in the bathroom. Many of his falls occur when he goes from a seatedto a standing position consistent with orthostatic hypotension. His only blood pressure medication is metoprolol 50 mg daily. No new neurologic changes following his most recent falls. He is using a cane or a walker when mobile in the home. Not currently undergoing physical therapy. Physical Exam Vitals: 05/08/23 1307 Temp: 36.4 C (97.5 F) Pulse: 81 Resp: 16 SpO2: 98% BP: 106/72 Physical Exam Physical Exam Vitals reviewed. Constitutional: General: He is not in acute distress. Pulmonary: Effort: Pulmonary effort is normal. No respiratory distress. Skin: General: Skin is warm and dry. Neurological: General: No focal deficit present. Mental Status: He is alert. Cranial Nerves: No cranial nerve deficit. Comments: Unsteady gait. This note has been completed in part utilizing [employer] Speech Voice Recognition Software. Due to technical limitations of the software, grammatical errors, random word insertions, prounoun errors, and incomplete sentences may occur. Any formal questions or concerns about the content, text, or information contained within the body of this dictation should be directly addressed to the provider for clarification. documented in this encounter Nursing Notes * Dara Lema LPN - 05/08/2023 1:10 PM EDT The patient has been properly identified by confirmation of name and date of . Chief Complaint Patient presents with Follow Up Patient is here today for a follow to discuss a recent fall. Patient states he fell about two weeks ago. Patient states he hit his head when he fell. Patient states he was recently in the hospital for a fall. Patient states he is having headaches, off balance, and soreness on the top of his head. Patient states he is having constant dizziness. documented in this encounter Plan of Treatment Upcoming Encounters Date Type Department Care Team (Late st Contact Info) Description 06/25/2023 2:00 PM EDT Office Visit [facility] [address] [place] [address] Jonathan Lan MD [address] [place] [address] 07/05/2023 3:40 PM EDT Office Visit Neurology [facility] [place] [address] [facility] [place] [address] Riya Mendez MD [address] [facility] [place] [address] 08/01/2023 8:30 AM EDT Procedure Only Endoscopy, [facility] [address] [place] [address] Yasmin Palma DO [address] [place] [address] 10/31/2023 4:00 PM EDT Office Visit Urology, [facility] [address] [facility] [place] [address] Ronan Tejada MD [address] [place] [address] 04/18/2024 2:00 PM EDT Nurse Only Ancillary Department, [address] [address] [place], Nurse [facility] [address] [place] [address] Scheduled Orders Name Type Priority Associated Diagnoses Orde r Schedule ALBUMIN / CREATININE RATIO, URINE Lab Routine Diabetes mellitus without complication (HCC) Expected: 05/08/2023, Expires: 05/07/2024 Scheduled Procedures Name Priority Associated Diagnoses Date/Ti me COLONOSCOPY FLEXIBLE PROXIMA L DIAGNOSTIC Recall Inflammatory polyps of colon with rectal bleeding Diverticulosis COLONOSCOPY FLEXIBLE PROXIMA L DIAGNOSTIC Recall H/O colonoscopy Scheduled Referrals Name Type Priority Associated Diagnoses Orde r Schedule PHYSICAL THERAPY REFERRAL OP Referral Within 10 days (routine) At risk for falls Ordered: 05/08/2023 Health Maintenance Due Date Last Done Comments Zoster Vaccines (1 of 2) 1986 AAA Monitoring 06/22/2020 06/23/2019 CKD PHOS USE SMARTSET 32296 09/20/202209/05, 01/18/2021, 06/23/2019, Additional history exists COVID-19 Vaccine ( season) 2022 01/18/2021, 06/05/2020, 05/13/2020, Additional history exists HbA1c 12/27/2022 06/26/2022, 110 07/2019, 12/18/2018, Additional history exists Albumin/Creatinine Ratio 06/27/2023 023, 06/10/2018, 06/26/2017, Additional history exists TSH 06/27/2023 06/26/2022, 09/05, 10/25/2020, Additional history exists CKD HGB USE SMARTSET 84515 02/13/202402/12, 02/12/2023, 12/13/2022, Additional history exists Depression [...] as of this encounter Visit Diagnoses Diagnosis At risk for falls- Primary Personal history of fall HTN, goal below 140/90 Unspecified essential hypertension Carotid stenosis, right Occlusion and stenosis of carotid artery without mention of cerebral infarction History of subdural hematoma Diabetes mellitus without complication (HCC) Type II or unspecified type diabetes mellitus [...] the patient have Health Care Power of Boot Turner? No Care Teams Herpetologist Relationship Specialty Start Date End Date Jonathan Lan MD [address] [place] [address] PCP - General Family Medicine 08/15/12 documented as of this encounter
--- OUTSIDE RECORDS SUMMARY | 2023-07-20 22:51 | External Medical Summary | Summary of Care ---
Author Name Unknown Organization [facility] Address [address] [facility] [place] [address] Phone [phone] Care Team Providers Care Soft Crab Shedder Name Role Phone Jonathan Lan MD Primary Care Provider Encounter Details Date Type Department Care Team (Late st Contact Info) Description 04/26/2023 Orders Only [facility] [address] [place] [address] Jonathan Lan MD [address] [place] [address] Allergies Active Allergy Reactions Criticality [...] as of this encounter (statuses as of 04/26/2023) Medications Medication Sig Dispensed Refills Start Date End Date Status MULTIVITAMINS PO TABS daily 0 Active VITAMIN D 1000 UNITS PO TABS 1 tab daily 0 Active hydrocortisone acetate (ANUSOL HC) 25 MG suppository Administer 1 Suppository into the rectum at bedtime. 12 Suppository 3 05/26/2016 Active Meclizine HCl 25 MG Oral Tablet (ANTIVERT)Indicatio ns:Vertigo Take 1 Tab by mouth 3 times a day as needed for Dizziness. 90 Tab 1 01/06/2020 Active Triamcinolone Acetonide 0.1 % External Lotion (Aristocort)Indicat ions:Irritant contact dermatitis due to plants, except food Apply topically to affected area 2 times a day. Apply topically to affected area 2 times a day.Apply topically to affected area 2 times a day. 60 mL 1 07/15/2020 Active Additional Information Patient not taking.Reported on 04/11/2023 Acetaminophen 500 MG Oral Tablet Take 1 Tablet by mouth every 6 hours as needed. 0 Active Tamsulosin HCl 0.4 MG Oral Capsule (Flomax) TAKE 1 CAPSULE BY MOUTH EVERY DAY 90 Capsule 3 08/07/2022 Active Vitamin B12 1000 MCG Oral Tablet Extended ReleaseIndications: Vitamin B12 deficiency Take one daily 0 08/23/2022 Active Finasteride 5 MG Oral Tablet (Proscar)Indication s:Hematuria, gross,BPH with obstruction/lower urinary tract symptoms TAKE 1 TABLET BY MOUTH EVERY DAY IN THE MORNING 90 Tablet 3 09/05/2022 Active Rosuvastatin Calcium 10 MG Oral Tablet (Crestor) TAKE 1 TABLET BY MOUTH EVERY DAY 90 Tablet 3 09/21/2022 Active Omeprazole 20 MG Oral Capsule Delayed Release (PriLOSEC)Indicatio ns:Esophagitis TAKE 1 CAP BY MOUTH DAILY. 1 HOUR BEFORE THE FIRST MEAL OF THE DAY 90 Capsule 2 10/13/2022 Active Levothyroxine Sodium 75 MCG Oral Tablet (Levoxyl)Indication s:Acquired hypothyroidism TAKE 1 TABLET BY MOUTH DAILY. (AT LEAST 30 MIN PRIOR TO BREAKFAST OR OTHER MEDS) 90 Tablet 2 10/13/2022 Active DULoxetine HCl 60 MG Oral Capsule Delayed Release Particles (Cymbalta)Indicatio ns:Left sided sciatica TAKE 1 CAPSULE BY MOUTH IN THE MORNING. DO NOT CUT, CRUSH OR CHEW. 90 Capsule 1 01/10/2023 Active AMBULATORY MISCELLANEOUS MEDICATION Apply 1-2 pumps (10-20mg) to affected area 1-2 times per day or as directed 90 g 3 01/16/2023 Active Additional Information Patient not taking.Reported on 04/11/2023 buPROPion HCl ER (XL) 150 MG Oral Tablet Extended Release 24 Hour (Wellbutrin XL) Take 1 Tablet by mouth in the morning. 90 Tablet 1 01/22/2023 Active Metoprolol Succinate ER 50 MG Oral Tablet Extended Release 24 Hour (toPROL XL)Indications:HTN, goal below 140/90 Take 1 Tablet by mouth in the morning. 90 Tablet 5 02/07/2023 Active documented as of this encounter (statuses as of 04/26/2023) Active Problems Problem Noted Date Diagnosed Date [...] as of this encounter (statuses as of 04/26/2023) Resolved Problems Problem Noted Date Diagnosed Date [...] as of this encounter (statuses as of 04/26/2023) Immunizations Name Administration Dates Next Due COVID-19 mRNA, LNP-s, No Pre serve, 2-Dose Series ([employer]) 01/18/2021,05/13/2020,04/22/2020 Pneumococcal Conjugate Vacc, 13 Valent (Prevnar) [...] patient's 12/03/2022 documented as of this encounter Plan of Treatment Upcoming Encounters Date Type Department Care Team (Late st Contact Info) Description 05/08/2023 1:00 PM EDT Office Visit [place] [address] [place] [phone] JuneBinh MD [address] [place] [address] 06/25/2023 2:00 PM EDT Office Visit [facility] [place] [address] [place] [phone] Jonathan Lan MD [address] [place] [address] 07/05/2023 3:40 PM EDT Office Visit Neurology [facility] [place] [address] [place] [address] Riya Mendez MD [address] [place] [address] 08/01/2023 8:30 AM EDT Procedure Only Endoscopy, [facility] [address] [facility] [place] [address] Yasmin Palma, [address] [place] [address] 10/31/2023 4:00 PM EDT Office Visit Urology, [facility] [address] [place] [address] Ronan Tejada MD [address] [place] [address] 04/18/2024 2:00 PM EDT Nurse Only Ancillary Department, [place] [address] [place] [address] [place], Nurse [facility] [address] [place] [address] Scheduled Procedures Name Priority Associated Diagnoses Date/Ti me COLONOSCOPY FLEXIBLE PROXIMA L DIAGNOSTIC Recall Inflammatory polyps of colon with rectal bleeding Diverticulosis COLONOSCOPY FLEXIBLE PROXIMA L DIAGNOSTIC Recall H/O colonoscopy Health Maintenance Due Date Last Done Comments Zoster Vaccines (1 of 2) 1986 AAA Monitoring 06/22/2020 06/23/2019 CKD PHOS USE SMARTSET 77263 09/20/202209/05, 01/18/2021, 06/23/2019, Additional history exists COVID-19 Vaccine ( season) 2022 01/18/2021, 06/05/2020, 05/13/2020, Additional history exists HbA1c 12/27/2022 06/26/2022, 11/0 07/2019, 12/18/2018, Additional history exists Albumin/Creatinine Ratio 06/27/2023 023, 06/10/2018, 06/26/2017, Additional history exists TSH 06/27/2023 06/26/2022, 09/05, 10/25/2020, Additional history exists CKD HGB USE SMARTSET 57379 02/13/202402/12, 02/12/2023, 12/13/2022, Additional history exists Depression Screening 04/10/2024 04/11/2023 Diabetic Foot Exam 04/10/2024 04/11/2023, 0 03/13/2022, 11/07/2016, Additional history exists Diabetic Eye Exam 04/25/2024 04/24/2023, , 11/25/2020, Additional history exists DTaP,Tdap,and [...] Not on filedocumented as of this encounter Procedures Procedure Name Priority Date/Time Associated Diagnosis Comments DIABETIC EYE EXAM Routine 04/24/2023 documented in this encounter Results * DIABETIC EYE EXAM (04/24/2023) 04/24/2023 History Per Patient OTHER OUTSIDE LAB (SEE SCANNED REPORT) documented in this encounter Advance Directives Latest [...] the patient have Health Care Power of Data Virtualization Consultant? No Care Teams Soft Crab Shedder Relationship Specialty Start Date End Date Jonathan Lan MD [address] [place] [address] PCP - General Family Medicine 08/15/12 documented as of this encounter
--- OUTSIDE RECORDS SUMMARY | 2023-07-20 22:51 | External Medical Summary | Summary of Care ---
Author Name Unknown Organization [facility] Address [address] [facility] [place] [address] Phone [phone] Care Team Providers Care Straight Ruling Machine Operator Name Role Phone Jonathan Lan MD Primary Care Provider Encounter Details Date Type Department Care Team (Late st Contact Info) Description 04/16/2023 Orders Only PATIENT PORTAL DO NOT DELETE THIS DEPT USED BY [place] [address] Allergies Active Allergy Reactions Criticality Noted Date [...] as of this encounter (statuses as of 04/16/2023) Medications Medication Sig Dispensed Refills Start Date [...] as of this encounter (statuses as of 04/16/2023) Active Problems Problem Noted Date Diagnosed Date [...] as of this encounter (statuses as of 04/16/2023) Resolved Problems Problem Noted Date Diagnosed Date [...] as of this encounter (statuses as of 04/16/2023) Immunizations Name Administration Dates Next Due COVID-19 mRNA, LNP-s, No Pre serve, 2-Dose Series ([employer]) 01/18/2021,05/13/2020,04/22/2020 Pneumococcal Conjugate Vacc, 13 Valent (Prevnar) [...] Care Team (Late st Contact Info) Description 04/16/2023 4:15 PM EDT Office Visit Urology, [facility] [address] [place] [address] Ronan Tejada MD [address] [address] [place] [address] 06/25/2023 2:00 PM EDT Office Visit [facility] [address] [place] [phone] Jonathan Lan MD [address] [place] [address] 07/05/2023 3:40 PM EDT Office Visit Neurology [facility] [address] [facility] [place] [address] Riya Mendez MD [address] [facility] [place] [address] 08/01/2023 8:30 AM EDT Procedure Only Endoscopy, [place] [address] [place] [address] Yasmin Palma DO [address] [place] [address] 04/18/2024 2:00 PM EDT Nurse Only Ancillary Department, [place] [address] [facility] [place] [phone] [place], Nurse [facility] [address] [facility] [place] [phone] Scheduled Procedures Name Priority Associated Diagnoses Date/Ti me COLONOSCOPY FLEXIBLE PROXIMA L DIAGNOSTIC Recall Inflammatory polyps of colon with rectal bleeding Diverticulosis COLONOSCOPY FLEXIBLE PROXIMA L DIAGNOSTIC Recall H/O colonoscopy Health Maintenance Due Date Last Done Comments Zoster Vaccines (1 of 2) 1986 AAA Monitoring 06/22/2020 06/23/2019 Diabetic Eye Exam 11/25/2021 11/25/2020, , 05/31/2017, Additional history exists CKD PHOS USE SMARTSET 15400 09/20/202209/05, 01/18/2021, 06/23/2019, Additional history exists COVID-19 Vaccine ( season) 2022 01/18/2021, 06/05/2020, 05/13/2020, Additional history exists HbA1c 12/27/2022 06/26/2022, 1107/2019, 12/18/2018, Additional history exists Albumin/Creatinine Ratio 06/27/2023 023, 06/10/2018, 06/26/2017, Additional history exists TSH 06/27/2023 06/26/2022, 09/05, 10/25/2020, Additional history exists CKD HGB USE SMARTSET 30090 02/13/202402/12, 02/12/2023, 12/13/2022, Additional history exists Depression Screening 04/10/2024 04/11/2023 Diabetic Foot Exam 04/10/2024 04/11/2023, 0 03/13/2022, 11/07/2016, Additional history exists DTaP,Tdap,and Td Vaccines (3 [...] the patient have Health Care Power of Cloth Stretcher? No Care Teams Straight Ruling Machine Operator Relationship Specialty Start Date End Date Jonathan Lan MD [address] [place] [address] PCP - General Family Medicine 08/15/12 documented as of this encounter
--- OUTSIDE RECORDS SUMMARY | 2023-07-20 22:51 | External Medical Summary | Summary of Care ---
Author Name Unknown Organization [facility] Address [address] [facility] [place] [address] Phone [phone] Care Team Providers Care Foreclosure Field Inspector Name Role Phone Jonathan Lan MD Primary Care Provider [phone] Encounter Details Date Type Department Care Team (Late st Contact Info) Description 03/01/2023 Telephone Gastroenterology, [facility] [address] [place] [address] Urszula Hoffmann CRNP [address] [place] [address] Allergies Active Allergy Reactions Criticality Noted Date [...] as of this encounter (statuses as of 03/01/2023) Medications Medication Sig Dispensed Refills Start Date [...] a day. 60 mL 1 07/15/2020 Active Acetaminophen 500 MG Oral Tablet Take [...] as directed 90 g 3 01/16/2023 Active buPROPion HCl ER (XL) 150 MG [...] as of this encounter (statuses as of 03/01/2023) Active Problems Problem Noted Date Diagnosed Date [...] as of this encounter (statuses as of 03/01/2023) Resolved Problems Problem Noted Date Diagnosed Date [...] as of this encounter (statuses as of 03/01/2023) Immunizations Name Administration Dates Next Due COVID-19 mRNA, LNP-s, No Pre serve, 2-Dose Series (OnGreen) 01/18/2021,05/13/2020,04/22/2020 Pneumococcal Conjugate Vacc, 13 Valent (Prevnar) [...] encounter Miscellaneous Notes * Telephone Encounter - Urszula Hoffmann CRNP - 03/01/2023 1:12 PM EST Please contact for motility testing GABRIELLE Hancock 03/01/2023 1:12 PM documented in this encounter Plan of Treatment Upcoming Encounters Date Type Department Care Team (Late st Contact Info) Description 03/20/2023 2:00 PM EST Nurse Only Ancillary Department, [place] [address] [facility] [address] [place], [facility] [address] [facility] [address] 04/16/2023 4:15 PM EDT Office Visit Urology, [facility] [address] [facility] [place] [address] Ronan Tejada MD [facility] [address] [place] [address] 06/25/2023 2:00 PM EDT Office Visit [facility], [place] [address] [facility] [phone] Jonathan Lan MD [address] [place] [address] 07/05/2023 3:40 PM EDT Office Visit Neurology [facility] [place] [address] [facility] [place], [place] [address] Riya Mendez MD [address] [facility] [place] [address] 08/01/2023 8:30 AM EDT Procedure Only Endoscopy, [facility] [address] [place] [address] Yasmin Palma DO [address] [place] [address] Scheduled Procedures Name Priority Associated Diagnoses Date/Ti [...] Additional history exists CKD PHOS USE SMARTSET 27655 09/20/202209/05, 01/18/2021, 06/23/2019, Additional history exists COVID-19 Vaccine ( season) 2022 01/18/2021, 06/05/2020, 05/13/2020, Additional history exists HbA1c 12/27/2022 06/26/2022, 1107/2019, 12/18/2018, Additional history exists Depression Screening 03/13/2023 03/13/2022 Diabetic Foot Exam 03/13/2023 03/13/2022, 1 , 11/27/2014, Additional history exists Albumin/Creatinine Ratio 06/27/2023 023, 06/10/2018, 06/26/2017, Additional history exists TSH 06/27/2023 06/26/2022, 09/05, 10/25/2020, Additional history exists CKD HGB USE SMARTSET 27149 02/13/202402/12, 02/12/2023, 12/13/2022, Additional history exists DTaP,Tdap,and [...] the patient have Health Care Power of Liquor Tester? No Care Teams Foreclosure Field Inspector Relationship Specialty Start Date End Date Jonathan Lan MD [address] [place] [address] PCP - General Family Medicine 08/15/12 documented as of this encounter
--- OUTSIDE RECORDS SUMMARY | 2023-07-20 22:51 | External Medical Summary | Summary of Care ---
Author Name Unknown Organization [facility] Address [address] [facility] [place] [address] Phone [phone] Care Team Providers Care Anti Air Warfare Operations Officer Name Role Phone Jonathan Lan MD Primary Care Provider [phone] Reason for Referral * Precert (Within 10 days (routine)) - Authorized Specialty Diagnoses / Procedures Referred By Eufemia cooper Referred To Contact Diagnoses Esophageal dysphagia Procedures ESOPHAGEAL MOTILITY STUDY Urszula Hoffmann CRNP [email or web address] [place] [address] Referral ID Status Reason Start Date Expiration Date V isits Requested Visits Authorized [id number] Authorized 03/01/2023 999 999 Reason for Visit * Reason Comments Follow Up Dysphagia Encounter Details Date Type Department Care Team (Late st Contact Info) Description 03/01/2023 1:00 PM EST Office Visit Gastroenterology, [facility] [address] [place] [address] Urszula Hoffmann CRNP [address] [place] [address] Esophageal dysphagia*; Change in bowel habits Allergies Active Allergy Reactions Criticality Noted Date [...] Sign Reading Time Taken Comments Blood Pressure 124/72 03/01/2023 12:55 PM EST Pulse 73 03/01/2023 12:55 PM EST Temperature 36.4 C (97.5 F) 03/01/2023 12:[address] Respiratory Rate - - Oxygen Saturation 95% 03/01/2023 12:55 PM EST Inhaled Oxygen Concentration - - Weight 85.5 kg (188 lb 6.4 oz) 03/01/2023 12:55 PM EST Height 182.9 cm (6') 03/01/2023 12:55 PM EST Body Mass Index 25.55 03/01/2023 12:55 PM EST documented in this encounter Functional [...] as of this encounter Progress Notes * Urszula Hoffmann CRNP - 03/01/2023 1:00 PM EST DATE OF SERVICE: 03/01/2023 REFERRING PHYSICIAN: Jonathan Lan MD CC: dysphagia, diarrhea Office Visit 03/01/2023 : Dysphagia worse over the last 6 months. Chews food well. Initiates swallow. Sometimes goes down, other times doesn't. Pills, meat, bread always cause trouble. He feels this stick at the top of his esophagus and he feels this slowly moving then stop. Notes if he drinks watersometimes it will go down. He recalls in the past after swallowing pills he has even brought them back up 20/30 minutes later. Water seems to go down okay. No abd pain. No nausea, vomiting. No acid reflux or heartburn. Bowels are going okay. These alternate diarrhea/constipation. Can go 2 times a day with loose stools or have constipation with stool that is hard to pass. Stools move every 2 days when this happens. No black or bloody stools. EGD 2022: Z-line regular, 42 cm from the incisors.Normal esophagus.Normal stomach.Normal duodenal bulb and second portion of the duodenum. No specimens collected. EGD 2020: Normal esophagus. Dilated.Normal stomach.Normal examined duodenum.No specimens collected. EGD 2018: ring, HH, gastritis GES 11/08/16: Delayed solid gastric emptying. EGD 06/07/16: hiatal hernia, empiric dilation, normal stomach, normal duodenum Colonoscopy 06/07/16: altered vascular mucosa in the rectum, mild diverticulosis, normal ileum Colonoscopy 10/29/13: A semi-sessile polyp was found in the ascending colon. The polyp was small in size. The polyp was removed with a hot snare. Resection and retrieval were complete. A semi-sessile polyp was found in the descending colon. The polyp was small in size. The polyp was removed with a hot snare. Resection and retrieval were complete .The exam was otherwise without abnormality. Repeat in 5 years for surveillance. Colonoscopy 10/10/05: Three benign appearing sessile polyps were found in the rectum. The polyps were 4 mm in size. These polyps were removed with a cold forceps. Resection and retrieval were complete. Estimated blood loss was minimal. Multiple small-mouthed diverticula were found in the distal sigmoid colon. Internal, non bleeding, medium hemorrhoids were found during retroflexion. The exam was otherwise without abnormality. Past Medical History: Diagnosis Date Acute cerebellar hemorrhage (HCC) 10/31/11 [facility] transferred to [facility] and decompressed Adrenal insufficiency ([facility]) [facility] Anemia Benign neoplasm of colon 10/10/05 3 X4 mm sessile polyps in rectum Cerebellar hemorrhage, acute (HCC) 11/01/2011 CKD (chronic kidney disease), stage III ([facility]) 02/21/11 gfr 54.1 Diaphragmatic hernia Diverticulosis of colon 10/10/05 DM type 2, goal: symptom mgmt ([facility]) 02/13/2013 Dyslipidemia, goal LDL below [...] elisas were negative. 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 [facility] to [facility], Dr Ruano decompressed Viral warts, unspecified Family History Problem Relation Age of Onset Diabetes Mother Cancer Mother liver Stroke Mother TIA Hypertension Mother Cirrhosis Mother Heart Disorder Father CHF Other (carotid artery disease) Brother Thyroid Disorder Other Past Surgical History: Procedure Laterality Date COLONOSCOPY COLONOSCOPY, DIAGNOSTIC (RECTUM) 10/17/2013 COLONOSCOPY FLEXIBLE PROXIMAL DIAGNOSTIC performed by Melvin Escobar MD at ENDOSCOPY [facility] COLONOSCOPY, DIAGNOSTIC (RECTUM) 06/07/2016 diverticulosis/[facility] COLONOSCOPY, DIAGNOSTIC (RECTUM) 08/29/2018 adenomatous polyp, radiation proctitis, diverticulosis / [facility] COLONOSCOPY, REMOVE LESION, W/SNARE 10/10/2005 3 4 mm sessile polyps in rectum, removed, Dr aSrah CT HEAD/BRAIN 10/31/2011 41 mm hemorrhage in [...] abnormalities, EF 55-59% EGD, FLEXIBLE, DIAGNOSTIC 06/07/2016 normal/[facility] EGD, FLEXIBLE, DIAGNOSTIC 08/29/2018 gastritis, Schatzki ring, hiatal hernia / [facility] EGD, FLEXIBLE, DIAGNOSTIC 05/05/2020 normal / [facility] EXPLORE/DECOMPRESS CRANIAL NERVES 11/01/2011 [facility] EXPLORE/DECOMPRESS CRANIAL NERVES 11/01/2011 CRANIECTOMY SUBOCCIPITAL EXPLORATION CRANIAL NERVES performed by Kofi Meza MD at OR [facility] FLUORO ESOPHAGRAM ENTIRE WO VIDEO 04/10/2001 EH with GERd INFORMATION 1997 laser destruction wart lower lip INJECT DX/THER SUBSTANCE INTERLAMINAR LUMBAR/SACRAL W IMAGE GUIDE 01/19/2020 INJECTION SPINE LUMBAR OR SACRAL performed by Cornelio Quan DO at OR [facility] MRI ABDOMEN WO CONTRAST 12/27/2012 OPEN SKULL FOR EXPLORATION 11/28/2011 craniotomy to clean out pseudomeningocele, [facility], Dr Ruano REMOVAL OF APPENDIX REMOVAL OF APPENDIX UPPER GI ENDOSCOPY N/A 03/02/2022 [facility], EGD , z-line regular 42cm from incisors, normal scope / no specimens collected / [facility] ANKLE BRACHIAL INDEX 08/16/2006 AMARI 1.1, normal Social History Tobacco Use Smoking status: Former Packs/day: 1.00 Years: 20.00 Additional pack years: 0.00 Total pack years: 20.00 Types: Cigarettes Quit date: 02/13/1991 Years since quittin.0 Passive exposure: Past (Father smoked cigars) Smokeless tobacco: Former Types: Snuff, Chew Quit date: 02/13/2007 Tobacco comments: Doesn't chew, use snuff, or smoke anymore Vaping Use Vaping Use: Never used Substance Use Topics Alcohol use: Not Currently Alcohol/week: 2.0 standard drinks of alcohol Types: 2 12 oz of beer per week Drug use: No Review of patient's allergies indicates: Allergen Reactions [...] complications Imdur [Isosorbide Nitrate] Diarrhea, fatigue, myalgias Current Outpatient Medications Medication Sig Dispense Refill [...] Gardner CRNA 2 g at 11/01/11 1345 REVIEW OF SYSTEMS: All other findings negative except as noted in HPI. EXAM: Temp 36.4 C (97.5 F) (Tympanic) | Ht 1.829 m (6') | Wt 85.5 kg (188 lb 6.4 oz) | BMI 25.55 kg/m | BSA 2.08 m GENERAL: Well developed and well nourished in no acute distress. SKIN: No rashes, ulcers, jaundice or spider angiomata. HEENT: Normocephalic, sclera clear, NECK: Supple, LUNGS: Clear to auscultation bilaterally, no respiratory distress or accessory muscles used. HEART: Regular rate & rhythm, no murmurs and no gallops. ABDOMEN: Normal bowel sounds, soft and nontender, no masses or hepatosplenomegaly. EXTREMITIES: No palmar erythema, no ankle edema, no skin discoloration, no clubbing, no cyanosis. NEURO: No lateralizing findings. Sensory/Motor grossly normal. DIAGNOSTIC TEST: Esophageal motility study ASSESSMENT AND PLAN: 87 year old male with history of radiation proctitis, GERD, Schatzki ring referred back to GI for diarrhea, dysphagia, both solids/liquids. He had EGD in 2020 w/ empiric dilationwithout relief, repeat EGD in 2022, no dilation performed and recommendation for motiltiy testing for any ongoing dysphagia symptoms. He is now interested in a colonoscopy for the change in his bowelhabits and diarrhea - Esophageal motility - Plan for colonoscopy - Soft, slippery diet as tolerated - Continue Omeprazole 20 mg daily - ED for emergencies - Please call with any questions or concerns RETURN TO CLINIC: after above I spent a total of 30 minutes on the date of service in review of patient's record, and previously obtained information in person and appropriate medical visit, discussion and education of plan, withpatient and/or caregiver, placing orders for tests/referral/procedures as medically necessary and documentation of pertinent clinical information in patient's medical records for their visit today. GABRIELLE Hancock 03/01/2023 1:11 PM documented in this encounter Nursing Notes * Len Sorensen CMA - 03/01/2023 12:56 PM EST Chief Complaint Patient presents with Follow Up Dysphagia Parth Jett is a 87 year old male who presents today with difficulty swallowing that began several years ago and has gotten worse over the past 6 months. He states that he has difficulty swallowing food and pills but has no trouble swallowing liquids. He denies reflux, nausea, vomiting or any change in bowel habits. documented in this encounter Plan of Treatment Upcoming Encounters Date Type Department Care Team (Late st Contact Info) Description 03/20/2023 2:00 PM EST Nurse Only Ancillary Department, [address] [address] [place] Nurse [facility] [address] [place] [address] 04/16/2023 4:15 PM EDT Office Visit Urology, [facility] [address] [facility] [place] [address] Ronan Tejada MD [facility] [address] [place] [address] 06/25/2023 2:00 PM EDT Office Visit [facility], [address] [place] [phone] Jonathan Lan MD [address] [place] [facility] [place] [address] 07/05/2023 3:40 PM EDT Office Visit Neurology [facility] [place] [address] [facility] [place] [address] Riya Mendez MD 200 [facility] [place], [place] [address] 08/01/2023 8:30 AM EDT Procedure Only Endoscopy, [facility] [place] [address] [place] [address] Yasmin Palma DO [address] [place] [address] Scheduled Orders Name Type Priority Associated Diagnoses Orde r Schedule ESOPHAGEAL MOTILITY STUDY Procedures Routine Esophageal dysphagia Ordered: 03/01/2023 COLONOSCOPY, DIAGNOSTIC (RECTUM) Procedures Routine Change in bowel habits Ordered: 03/01/2023 Scheduled Procedures Name Priority Associated Diagnoses Date/Ti [...] Additional history exists CKD PHOS USE SMARTSET 54584 09/20/2022 08/07/2021, 01/18/2021, 06/23/2019, Additional history exists COVID-19 Vaccine ( season) 2022 01/18/2021, 06/05/2020, 05/13/2020, Additional history exists HbA1c 12/27/2022 06/26/2022, 11/0 07/2019, 12/18/2018, Additional history exists Depression Screening 03/13/2023 03/13/2022 Diabetic Foot Exam 03/13/2023 03/13/2022, 1 , 11/27/2014, Additional history exists Albumin/Creatinine Ratio 06/27/2023 023, 06/10/2018, 06/26/2017, Additional history exists TSH 06/27/2023 06/26/2022, 09/05, 10/25/2020, Additional history exists CKD HGB USE SMARTSET 42121 02/13/202402/12, 02/12/2023, 12/13/2022, Additional history exists DTaP,Tdap,and [...] as of this encounter Visit Diagnoses Diagnosis Esophageal dysphagia- Primary Dysphagia, pharyngoesophageal phase Change in bowel habits Other symptoms involving digestive system documented in this encounter Advance Directives Latest [...] the patient have Health Care Power of Heat Treat Technician? No Care Teams Anti Air Warfare Operations Officer Relationship Specialty Start Date End Date Jonathan Lan MD [address] [place] [address] PCP - General Family Medicine 08/15/12 documented as of this encounter
--- OUTSIDE RECORDS SUMMARY | 2023-07-20 22:51 | External Medical Summary | Summary of Care ---
Author Name Unknown Organization [facility] Address [address] [facility] [place] [address] Phone [phone] Care Team Providers Care Morphology Teacher Name Role Phone Jonathan Lan MD Primary Care Provider [phone] Encounter Details Date Type Department Care Team (Late st Contact Info) Description 03/02/[address] [facility] [address] [place] [address] Jonathan Lan MD [address] [place] [address] Allergies Active Allergy Reactions Criticality [...] as of this encounter (statuses as of 03/02/2023) Medications Medication Sig Dispensed Refills Start Date [...] as of this encounter (statuses as of 03/02/2023) Active Problems Problem Noted Date Diagnosed Date [...] as of this encounter (statuses as of 03/02/2023) Resolved Problems Problem Noted Date Diagnosed Date [...] as of this encounter (statuses as of 03/02/2023) Immunizations Name Administration Dates Next Due COVID-19 mRNA, LNP-s, No Pre serve, 2-Dose Series (Tractive) 01/18/2021,05/13/2020,04/22/2020 Pneumococcal Conjugate Vacc, 13 Valent (Prevnar) [...] encounter Miscellaneous Notes * Telephone Encounter - Sarah Baugh LPN - 03/02/2023 2:13 PM EST Pt aware via [employer] message. * Telephone Encounter - Sarah Baugh LPN - 03/02/2023 2:13 PM EST ----- Message from Jonathan Lan MD sent at 03/02/2023 7:38 AM EST ----- The CT of head looks OK. No new abnormality noted. documented in this encounter Plan of Treatment Upcoming Encounters Date Type Department Care Team (Late st Contact Info) Description 03/20/2023 2:00 PM EST Nurse Only Ancillary Department, [place] [address] [facility] [address] [place] Nurse Annual [facility] [address] [place] [address] 04/16/2023 4:15 PM EDT Office Visit Urology, [facility] 132 [facility] [place] [address] Ronan Tejada MD [address] [place] [address] [place] [address] 06/25/2023 2:00 PM EDT Office Visit [facility] [address] [place] [phone] Jonathan Lan MD [address] [place] [address] 07/05/2023 3:40 PM EDT Office Visit Neurology [facility] [address] [facility] [place] [address] Riya Mendez MD [address] [facility] [place] [address] 08/01/2023 8:30 AM EDT Procedure Only Endoscopy, [facility] [address] [place] [address] Yasmin Palma DO [address] [place] [address] Scheduled Procedures Name Priority Associated Diagnoses Date/Ti [...] Additional history exists CKD PHOS USE SMARTSET 13606 09/20/202209/05, 01/18/2021, 06/23/2019, Additional history exists COVID-19 Vaccine ( season) 2022 01/18/2021, 06/05/2020, 05/13/2020, Additional history exists HbA1c 12/27/2022 06/26/2022, 1107/2019, 12/18/2018, Additional history exists Depression Screening 03/13/2023 03/13/2022 Diabetic Foot Exam 03/13/2023 03/13/2022, 1 , 11/27/2014, Additional history exists Albumin/Creatinine Ratio 06/27/2023 023, 06/10/2018, 06/26/2017, Additional history exists TSH 06/27/2023 06/26/2022, 09/05, 10/25/2020, Additional history exists CKD HGB USE SMARTSET 90177 02/13/202402/12, 02/12/2023, 12/13/2022, Additional history exists DTaP,Tdap,and [...] the patient have Health Care Power of Child And Family Services Specialist? No Care Teams Morphology Teacher Relationship Specialty Start Date End Date Jonathan Lan MD [address] [place] [address] PCP - General Family Medicine 08/15/12 documented as of this encounter
--- OUTSIDE RECORDS SUMMARY | 2023-07-20 22:51 | External Medical Summary | Summary of Care ---
Author Name Unknown Organization [facility] Address [address] [facility] [place] [address] Phone [phone] Care Team Providers Care Mill Turner Name Role Phone Jonathan Lan MD Primary Care Provider [phone] Reason for Visit * Reason Onset Date Comments FYI 02/23/2023 Encounter Details Date Type Department Care Team (Late st Contact Info) Description 02/23/2023 Telephone [facility] [address] [place] [address] Jonathan Lan MD [address] [place] [address] Allergies Active Allergy Reactions Criticality [...] as of this encounter (statuses as of 02/23/2023) Medications Medication Sig Dispensed Refills Start Date [...] OTHER MEDS) 90 Tablet 2 10/13/2022 Active Docusate Sodium 100 MG Oral Capsule (Colace) Take 1 Capsule by mouth in the morning and 1 Capsule before bedtime. 10 Capsule 0 12/05/2022 Active DULoxetine HCl 60 MG Oral Capsule [...] as of this encounter (statuses as of 02/23/2023) Active Problems Problem Noted Date Diagnosed Date Subdural hematoma 12/03/2022 Fall 12/03/2022 Diabetes mellitus [...] as of this encounter (statuses as of 02/23/2023) Resolved Problems Problem Noted Date Diagnosed Date [...] as of this encounter (statuses as of 02/23/2023) Immunizations Name Administration Dates Next Due COVID-19 mRNA, LNP-s, No Pre serve, 2-Dose Series ([employer]) 01/18/2021,05/13/2020,04/22/2020 Pneumococcal Conjugate Vacc, 13 Valent (Prevnar) [...] Telephone Encounter - Jonathan Lan MD - 02/23/2023 5:24 PM EST noted * Telephone Encounter - Coty Irvin OSA - 02/23/2023 1:24 PM EST Calling to report that pt had a fall on Sunday. Pt said that he is sore all over, hit his head- has small lump, but refuses to go to ED. Pt has CT appt for next week. documented in this encounter Plan of Treatment Upcoming Encounters Date Type Department Care Team (Late st Contact Info) Description 02/27/2023 9:00 AM EST Office Visit Gastroenterology, [facility] [address] [place] [address] Urszula Hoffmann CRNP [address] [place] [address] 02/28/2023 12:30 PM EST Office Visit Vascular Surgery, [facility] [address] [place] [address] Scot Ludwig MD [address] [place] [address] 02/28/2023 2:15 PM EST Imaging Radiology [facility] 1st Floor, [place] [address] [place] [address] 03/20/2023 2:00 PM EST Nurse Only Ancillary Department, [facility] [address] [place] [address] [place], Nurse [facility] [address] [place] [address] 04/16/2023 4:15 PM EDT Office Visit Urology, [facility] [address] [place] [address] Ronan Tejada MD [address] [address] 06/25/2023 2:00 PM EDT Office Visit Family Practice, [facility] [address] [place] [id number] Jonathan Lan MD [address] [place] [address] 07/05/2023 3:40 PM EDT Office Visit Neurology [facility] [address] [facility] [place] [address] Riya Mendez MD [address] [place] [address] Scheduled Procedures Name Priority Associated Diagnoses Date/Ti me COLONOSCOPY FLEXIBLE PROXIMA L DIAGNOSTIC Recall Inflammatory polyps of colon with rectal bleeding Diverticulosis COLONOSCOPY FLEXIBLE PROXIMA L DIAGNOSTIC Recall H/O colonoscopy Health Maintenance Due Date Last Done Comments Zoster Vaccines (1 of 2) 1986 Hepatitis B (1 of 3 - Risk 3-dose series) 1996 Diabetic Eye Exam 11/25/2021 11/25/2020, , 05/25/2016, Additional history exists CKD PHOS USE SMARTSET 64998 09/20/202209/05, 01/18/2021, 06/23/2019, Additional history exists COVID-19 Vaccine ( season) 2022 01/18/2021, 06/05/2020, 05/13/2020, Additional history exists HbA1c 12/27/2022 06/26/2022, 11/0 07/2019, 12/18/2018, Additional history exists Depression Screening 03/13/2023 03/13/2022 Diabetic Foot Exam 03/13/2023 03/13/2022, 1 , 11/27/2014, Additional history exists Albumin/Creatinine Ratio 06/27/2023 023, 06/10/2018, 06/26/2017, Additional history exists TSH 06/27/2023 06/26/2022, 09/05, 10/25/2020, Additional history exists CKD HGB USE SMARTSET 72557 02/13/202402/12, 02/12/2023, 12/13/2022, Additional history exists DTaP,Tdap,and [...] the patient have Health Care Power of [employer]? No Care Teams Mill Turner Relationship Specialty Start Date End Date Jonathan Lan MD [address] [place] [facility] [place] [address] PCP - General Family Medicine 08/15/12 documented as of this encounter
--- OUTSIDE RECORDS SUMMARY | 2023-07-20 22:51 | External Medical Summary | Summary of Care ---
Author Name Unknown Organization [facility] Address [address] [facility] [place] [address] Phone [phone] Care Team Providers Care Telecommunication Tower Technician Name Role Phone Margareth Lan MD Primary Care Provider [phone] Reason for Visit * Reason Onset Date Comments Medication Refill 05/10/2023 Encounter Details Date Type Department Care Team (Late st Contact Info) Description 05/10/2023 Refill Ancillary Department, [facility] [address] [place] [address] Margareth Lan MD [address] [place] [address] Vertigo Allergies Active Allergy Reactions Criticality Noted Date [...] as of this encounter (statuses as of 05/11/2023) Medications Medication Sig Dispensed Refills Start Date [...] for Dizziness. 90 Tablet 1 05/11/2023 Active Meclizine HCl 25 MG Oral Tablet (ANTIVERT)Indication s:Vertigo Take 1 Tab by mouth 3 times a day as needed for Dizziness. 90 Tab 1 01/06/2020 04/04/202 4 Discontinue d(Refill) documented as of this encounter (statuses as of 05/11/2023) Active Problems Problem Noted Date Diagnosed Date [...] as of this encounter (statuses as of 05/11/2023) Resolved Problems Problem Noted Date Diagnosed Date [...] as of this encounter (statuses as of 05/11/2023) Immunizations Name Administration Dates Next Due COVID-19 mRNA, LNP-s, No Pre serve, 2-Dose Series ([employer]) 01/18/2021,05/13/2020,04/22/2020 Pneumococcal Conjugate Vacc, 13 Valent (Prevnar) [...] encounter Miscellaneous Notes * Telephone Encounter - Margareth Lan MD - 05/11/2023 4:19 PM EDTSigned Prescriptions: Disp Refills Meclizine HCl 25 MG Oral Tablet (Antivert) 90 Tab*1 Sig: Take 1 Tablet by mouth 3 times a day as needed for Dizziness. Authorizing Provider: MARGARETH LAN * Telephone Encounter - Brenda Brady LPN - 05/11/2023 11:37 AM EDTPending Prescriptions: Disp Refills Meclizine HCl 25 MG Oral Tablet (Antivert) 90 Tab*1 Sig: Take 1 Tablet by mouth 3 times a day as needed for Dizziness. * Telephone Encounter - Imelda Aguilar OSA - 05/10/2023 2:59 PM EDT Pending Prescriptions: Disp Refills Meclizine HCl 25 MG Oral Tablet (Antivert) 90 Tab*1 Sig: Take 1Tablet by mouth 3 times a day as needed for Dizziness. documented in this encounter Plan of Treatment Upcoming Encounters Date Type Department Care Team (Late st Contact Info) Description 06/25/2023 2:00 PM EDT Office Visit [facility] [place] [address] [facility] [id number] Margareth Lan MD [address] [place] [facility] [place] [address] 07/05/2023 3:40 PM EDT Office Visit Neurology [facility] [address] [facility] [place] [address] Riya Mendez MD [address] [place] [address] 08/01/2023 8:30 AM EDT Procedure Only Endoscopy, [facility] [address] [facility] [place] [address] Yasmin Palma DO [address] [facility] [place] [address] 10/31/2023 4:00 PM EDT Office Visit Urology, [facility] [address] [facility] [place] [address] Ronan Tejada MD [address] [place] [address] 04/18/2024 2:00 PM EDT Nurse Only Ancillary Department, [place] [address] [facility] [address] [place], Nurse [facility] [address] [place] [facility] [place] [address] Scheduled Procedures Name Priority Associated Diagnoses Date/Ti me COLONOSCOPY FLEXIBLE PROXIMA L DIAGNOSTIC Recall Inflammatory polyps of colon with rectal bleeding Diverticulosis COLONOSCOPY FLEXIBLE PROXIMA L DIAGNOSTIC Recall H/O colonoscopy Health Maintenance Due Date Last Done Comments Zoster Vaccines (1 of 2) 1986 AAA Monitoring 06/22/2020 06/23/2019 CKD PHOS USE SMARTSET 56503 09/20/202209/05, 01/18/2021, 06/23/2019, Additional history exists COVID-19 Vaccine (2022- season) 2022 01/18/2021, 06/05/2020, 05/13/2020, Additional history exists HbA1c 12/27/2022 06/26/2022, 1107/2019, 12/18/2018, Additional history exists Albumin/Creatinine Ratio 06/27/2023 023, 06/10/2018, 06/26/2017, Additional history exists TSH 06/27/2023 06/26/2022, 09/05, 10/25/2020, Additional history exists CKD HGB USE SMARTSET 07392 02/13/202402/12, 02/12/2023, 12/13/2022, Additional history exists Depression [...] as of this encounter Visit Diagnoses Diagnosis Vertigo Dizziness and giddiness documented in this encounter Advance Directives Latest [...] the patient have Health Care Power of Ortho/Prosthetic Aide? No Care Teams Telecommunication Tower Technician Relationship Specialty Start Date End Date Margareth Lan MD [address] [place] [address] PCP - General Family Medicine 08/15/12 documented as of this encounter
--- OUTSIDE RECORDS SUMMARY | 2023-07-20 22:51 | External Medical Summary | Summary of Care ---
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 Seating Name Role Phone Jonathan Lan MD Primary Care Provider [phone] Reason for Visit * Reason Comments Adult Annual Wellness Visit, Subsequent Visit Encounter Details Date Type Department Care Team (Late st Contact Info) Description 04/11/2023 2:00 PM EST Nurse Only Ancillary Department, [place] [address] [place] [address] [place], Nurse Annual Wellness [address] [place] [address] Adult Annual Wellness Visit, Subsequent Visit Allergies Active Allergy Reactions Criticality Noted Date [...] as of this encounter (statuses as of 04/12/2023) Medications Medication Sig Dispensed Refills Start Date [...] as of this encounter (statuses as of 04/12/2023) Active Problems Problem Noted Date Diagnosed Date [...] as of this encounter (statuses as of 04/12/2023) Resolved Problems Problem Noted Date Diagnosed Date [...] as of this encounter (statuses as of 04/12/2023) Immunizations Name Administration Dates Next Due COVID-19 mRNA, LNP-s, No Pre serve, 2-Dose Series (Apperian) 01/18/2021,05/13/2020,04/22/2020 Pneumococcal Conjugate Vacc, 13 Valent (Prevnar) [...] Sign Reading Time Taken Comments Blood Pressure 130/72 04/11/2023 2:39 PM EST Pulse 71 04/11/2023 2:39 PM EST Temperature 36.1 C (96.9 F) 04/11/2023 2:39 PM ES T Respiratory Rate - - Oxygen Saturation 98% 04/11/2023 2:39 PM EST Inhaled Oxygen Concentration - - Weight 84.4 kg (186 lb) 04/11/2023 2:39 PM EST Height 182.2 cm (5' 11.75") 04/11/2023 2:[address] Body Mass Index 25.4 04/11/2023 2:39 PM EST documented in this [...] patient's 12/03/2022 documented as of this encounter Patient Instructions * Patient Instructions* Dolores Thompson RN - 04/11/2023 3:03 PM EST Patient Instructions - Fall Prevention (This education is for all patients over 65 regardless of symptoms) Remember to take your current medications as prescribed. In order to prevent falls, you are encouraged to: Exercise Utilize assistive/adaptive devices Avoid multifocal lenses when walking Avoid hazards in home Maintain a regular toileting schedule Any questions please contact our office. Preventing Falls in the Home (This education is for all patients over 65 regardless of symptoms) As you get older, falls are more likely. Thats because your reaction time slows. Your muscles and joints may also get stiffer, making them less flexible. Illness, medications, and vision changes can also affect your balance. A fall could leave you unable to live on your own. To make your home safer, follow these tips: Floors Put nonskid pads under area rugs Remove throw rugs Replace worn floor coverings Tack carpets firmly to each step on carpeted stairs. Put nonskid strips on the edges of uncarpeted stairs Keep floors and stairs free of clutter and cords Arrange furniture so there are clear pathways Clean up any spills right away Bathrooms Install grab bars in the tub or shower Apply nonskid strips or put a nonskid rubber mat in the tub or shower Sit on a bath chair to bathe Use bathmats with nonskid backing Lighting Keep a flashlight in each room Put a nightlight along the pathway between the bedroom and the bathroom [employer]ia Patient Education Copyright 2008 - 2010 Catia except where otherwise noted Preventing Falls: Exercises to Improve Balance, Flexibility, Strength, and Staying Power (This education is for all patients over 65 regardless of symptoms) Certain types of exercises may help make you less likely to fall. Try the ones below. Or do other exercises that your healthcare provider suggests. Depending on your health, you may need to start slowly. Dont let that stop you. Even small amounts of exercise can help you. Be sure to talk to yourhealthcare provider before starting any exercise program. Improve Balance Many types of exercise can help improve balance. Celestine chi and yoga are good examples. Heres another one to try. You can do it anytime and almost anywhere. Stand next to a counter or solid support. Push yourself up onto your tiptoes. Hold for 5 seconds. If you start to lose your balance, hold on to the counter. Rest and repeat 5 times. Work up to holding for 20 to 30 seconds, if you can. Increase Flexibility Being more flexible makes it easier for you to move around safely. Try exercises like the seated hamstring stretch. Sit in a chair and put one foot on a stool. Straighten your leg and reach with both hands down either side of your leg. Reach as far down your leg as you can. Hold for about 20 seconds. Go back to the starting position. Then repeat 5 times. Switch legs. Build Strength Resistance exercises help build strength. You can do them without equipment. Or you can use weights, elastic bands, or special machines. One such exercise is called the biceps curl. You can hold a 1 pound weight or even a can of soup. Do this exercise at least 3 times a week. Strive for everyday. Sit up straight in a chair. Keep your elbow close to your body and your wrist straight. Bend your arm, moving your hand up to your shoulder. Then slowly lower your arm. Repeat 5 times. Switch to the other arm. Build Your Staying Power Aerobic exercises make your heart and lungs stronger so you can keep moving longer. Walking and swimming are two of the best types of exercises you can do. Using a stationary bike is great, too. Find an aerobic exercise that you enjoy. Start slowly and build up. Even 5 minutes is helpful. Aimfor a goal of 30 minutes, at least 3 times a week. You dont have to do 30 minutes in one session. Break it up and walk a little throughout the day. More Helpful Tips Start easy. Slowly work up to doing more. Talk with your healthcare provider about the best exercises for you. Call senior centers or health clubs about exercise programs. If needed, have a family member watch you walk every so often to check your stability. Exercise with a friend. Choose an activity you both enjoy. Try exercises that you can do anytime, anywhere. Here are two examples. Have someone with you when you first try these: Practice walking by placing one foot right in front of the other. Stand up and sit down 10 times. Repeat this throughout the day. Catia Patient Education Copyright 2009 - 2010 Catia except where otherwise noted. Preventing Falls: Moving Safely Using a Cane or Walker (This education is for all patients over 65 regardless of symptoms) Keep the cane away from your feet so you dont trip. A walking aid, such as a cane or walker, can help you stay more independent and avoid falls. Remember to keep your walking aid within easy reach when youre in a chair or in bed. And learn how to use it safely so you dont injure yourself. Using a Cane If you have a stronger side, hold the cane on that side. Get your balance. Move the cane and your weaker leg forward. Support your weight on both the cane and your weaker side. Step with your stronger leg. Start again from step 1. If youre using a folding walker, be sure you know how to lock it open. Check that its locked open before each use. Using a Walker Roll the walker (or lift it, if youre using one without wheels) forward about 12 inches. Step forward with your weaker leg first. Use the walker to help keep your balance. Bring your other foot forward to the center of the walker. Start again from step 1. Helpful Tips Check with your healthcare provider about the right walking aid to use. Ask about a walker with a seat attached. Check the tips of your cane or walker to make sure they have nonskid covers. Move slowly from room to room. Dont casanova. Sit down to get dressed. Use a carolyne pack or backpack to keep your hands free. Get help for jobs that mean climbing, even on a stepstool. Catia Patient Education Copyright 2008 - 2010 Catia except where otherwise noted. Treating Urinary Incontinence in Men (This education is for all patients over 65 regardless of symptoms) You can't always control the release of urine. You may leak urine. Or you may not be able to hold your urine until you can get to a bathroom. This is called urinary incontinence. The problem can be managed. Talk to your doctor about your treatment options. Taking Medications Prescription medications may help you. They may: Help the sphincter to work better. (This is the muscle that closes to keep urine from leaking out of the bladder.) Help stop the bladder from piedad too often to push urine out. Help the bladder muscles contract with more force. Help relax the sphincter muscle and allow urine to flow more freely. Making Changes to Your Routine Certain changes in your daily routine may help. These include: Avoiding caffeine and alcohol. Using timed voiding. This is following a schedule for drinking fluids and urinating. Doing Kegel exercises daily. These exercises involve tightening the muscles in your sphincter and around your bladder to help strengthen them. Your doctor can explain how to do them. Using a Catheter A catheter is a narrow tube that is inserted through the urethra into the bladder. It drains urine.A condom catheter covers the penis. It channels urine into a collection bag. It is worn most of thetime. Intermittent catheterization means inserting a catheter to drain the bladder, then removing it. This is done on a regular schedule. Having Surgery If other options don't work, surgery may be recommended. If surgery is an option, your healthcare provider can discuss it with you and explain its risks and benefits. Healing After Prostate Surgery Surgery on the prostate gland can cause incontinence. Most often, the incontinence is only for a short time. It clears up when healing is complete. Very rarely, prostate surgery can result in permanent incontinence. Hi Mr. Jett, As your primary care physician, I know that regular visits with my patients who have several chronic conditions can go a long way in helping you stay healthy. Many times, the clinic team and I are in touch with you and/or other care team members between office visits to adjust medications, discuss any changes in your health, and review our care plan to make sure it is still meeting your needs. I am dedicated to helping you take a more active role in your overall care. It is important that there are resources available to you, so I created a personalized plan of care with a Health Calendar for you, which is included on the next page of this letter. Below is a list that summarizes your electronic health record: Health Maintenance Due: Health Maintenance Due Topic Date Due Zoster Vaccines (1 of 2) Never done AAA Monitoring 06/22/2020 Diabetic Eye Exam 11/25/2021 CKD PHOS USE SMARTSET 22015 09/20/2022 COVID-19 Vaccine ( season) 2022 HbA1c 12/27/2022 Albumin/Creatinine Ratio 06/27/2023 Current Medication List: (as of 12/16/2005 (in office), Visit date not found (telemedicine) ) Current Outpatient Medications Medication Sig Dispense Refill MULTIVITAMINS PO TABS daily VITAMIN D 1000 UNITS PO TABS 1 tab daily Meclizine HCl 25 MG Oral Tablet (ANTIVERT) Take 1 Tab by mouth 3 times a day as needed for Dizziness. 90 Tab 1 Acetaminophen 500 MG Oral Tablet Take [...] CUT, CRUSH OR CHEW. 90 Capsule 1 buPROPion HCl ER (XL) 150 MG Oral Tablet Extended Release 24 Hour (Wellbutrin XL) Take 1 Tabletby mouth in the morning. 90 Tablet 1 Metoprolol Succinate ER 50 MG Oral Tablet Extended Release 24 Hour (toPROL XL) Take 1 Tablet bymouth in the morning. 90 Tablet 5 hydrocortisone acetate (ANUSOL HC) 25 MG suppository Administer 1 Suppository into the rectum at bedtime. 12 Suppository 3 Triamcinolone Acetonide 0.1 % External Lotion (Aristocort) Apply topically to affected area 2 times a day. Apply topically to affected area 2 times a day.Apply topically to affected area 2 times a day. (Patient not taking: Reported on 04/11/2023) 60 mL 1 AMBULATORY MISCELLANEOUS MEDICATION Apply 1-2 pumps (10-20mg) to affected area 1-2 times per day or as directed (Patient not taking: Reported on 04/11/2023) 90 g 3 No current facility-administered medications for this visit. Facility-Administered Medications Ordered in Other Visits Medication Dose Route Frequency Provider Last Rate Last Admin ceFAZolin in D5W (ANCEF) ivpb Once PRN Elliot Gardner CRNA 2 g at 11/01/11 1345 Current List of Allergies: (as of 12/16/2005 (in office), Visit date not found (telemedicine) ) Review of patient's allergies indicates: Allergen Reactions [...] complications Imdur [Isosorbide Nitrate] Diarrhea, fatigue, myalgias Most Recent Lab Results: Results for orders placed or performed in visit on 02/12/23 PSA Result Value Ref Range PSA <0.02 <4.10 ng/mL BNP, NT-PRO Result Value Ref Range BNP, NT-Pro 366 (H) <300 pg/mL BASIC METABOLIC PANEL Result Value Ref Range [...] mg/dL Calcium 9.7 8.4 - 10.2 mg/dL CBC Result Value Ref Range WBC 5.21 [...] 11.1 fL nRBCs 0 <=0 /100 WBCs DIFFERENTIAL, AUTOMATED Result Value Ref Range WBC 5.21 4.00 - 10.80 K/uL Neutrophils % 59.7 40.0 - 75.0 % Lymphocytes % 20.3 18.0 - 42.0 % Monocytes % 12.3 (H) 1.0 - 11.0 % Eosinophils % 6.5 (H) 0.0 - 6.0 % Basophils % 1.0 0.0 - 2.0 % Immature Granulocytes % 0.2 0.0 - 2.0 % Absolute Neutrophils 3.11 1.80 - 7.70 K/uL Absolute Lymphocytes 1.06 1.00 - 4.80 K/ul Absolute Monocytes 0.64 0.00 - 1.10 K/uL Absolute Eosinophils 0.34 0.00 - 0.70 K/uL Absolute Basophils 0.05 0.00 - 0.20 K/uL Absolute Immature Granulocytes 0.01 0.00 - 0.20 K/uL *Note: Due to a large number of results and/or encounters for the requested time period, some results have not been displayed. A complete set of results can be found in Results Review. Sincerely, Jonathan Lan MD 04/11/2023 [facility] Calendar (as of 12/16/2005 (in office), Visit date not found (telemedicine) ) Care needs Care needs Last completed Due next Zoster (Shingles) Vaccine (1 of 2) --- Never done Yearly abdominal aortic aneurysm CT scan or ultrasound 06/23/2019 06/22/2020 Diabetic Eye Exam 11/25/2020 11/25/2021 COVID-19 Vaccine (2022- season) 2021 10/06/2022 A1C blood sugar test 06/26/2022 12/27/2022 Urine albumin/creatinine test 06/26/2022 06/27/2023 Yearly thyroid level check 06/26/2022 06/27/2023 Diabetic Foot Exam 04/11/2023 04/10/2024 Diphtheria, tetanus & pertussis vaccines (3 - Td or Tdap) 12/03/2022 12/03/2032 As you look over the recommended services, be sure to check with your insurance company to determine what's covered. [employer]ia is a great tool that helps you review your medical record online, including test results, doctor notes and your health summary. You can also schedule appointments with me and other members of your care team, request prescription refills and ask for advice related to your medical conditions at [email or web address]. documented in this encounter Progress Notes * Dolores Thompson RN - 04/11/2023 2:40 PM EST AD8 Dementia Screening Interview Person answering questions: patient Remember, "Yes, a change" indicates that there has been a change in the last several years caused by cognitive (thinking and memory) problems 1. Problems with judgement (eg: problems making decisions, bad financial decisions, problems with thinking). No (0) 2. Less interest in hobbies/activities. No (0) 3. Repeats the same things over and over (questions, stories, or statements). No (0) 4. Trouble learning how to use a tool, appliance, or gadget (eg: VCR, computer, microwave, remote control). No (0) 5. Forgets correct month or year. No (0) 6. Trouble handling complicated financial affairs (eg: balancing checkbook, income taxes, paying bills). Yes (1) 7. Trouble remembering appointments. No (0) 8. Daily problems with thinking and/or memory. No (0) TOTAL AD8: 1 - AD8 Dementia Screening Score The final score is a sum of the number items marked "Yes, A Change". 0 - 1: Normal cognition; 2 or greater: Cognitive impairments is likely to be present - further testing required Adult Annual Wellness Visit: Parth Jett is a 87 year old male who presents for an Adult Annual Wellness Visit. Depression Screening: Did the patient complete the screening questionnaire for Depression? Yes Is the patient's total score for Depression 15 or greater? No, no further intervention needed, unless requested by patient. Did the patient answer positively to the suicide question? No, no further intervention needed, unless requested by patient. In general, compared to other people your age, what would you say that your health is? Good Ht Readings from Last 1 Encounters: 04/11/23 1.822 m (5' 11.75") Wt Readings from Last 1 Encounters: 04/11/23 84.4 kg (186 lb) Body Mass Index: BMI Less than 30 Body mass index is 25.4 kg/m. BP Readings from Last 1 Encounters: 04/11/23 130/72 Medical/Surgical/Family History Reviewed: Yes Past Medical History: Diagnosis Date Acute cerebellar hemorrhage (HCC) 10/31/11 [facility] [place] [facility] [place] Adrenal insufficiency (HCC) [facility] Anemia Benign neoplasm of colon 10/10/05 3 X4 mm sessile polyps in rectum Cerebellar hemorrhage, acute (HCC) 11/01/2011 CKD (chronic kidney disease), stage III (HCC) 02/21/11 gfr 54.1 Diaphragmatic hernia Diverticulosis of colon 10/10/05 DM type 2, goal: symptom mgmt (HCC) 02/13/2013 Dyslipidemia, goal LDL below 100 06/21/2011 Esophagitis, unspecified Generalized osteoarthritis GERD (gastroesophageal reflux disease) History of tobacco abuse HTN, goal below 140/90 Hypertension IMPOTENCE, 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 [facility] to [facility], Dr Ruano decompressed Viral warts, unspecified Past Surgical History: Procedure Laterality Date COLONOSCOPY COLONOSCOPY, DIAGNOSTIC (RECTUM) 10/17/2013 COLONOSCOPY FLEXIBLE PROXIMAL DIAGNOSTIC performed by Melvin Escobar MD [place] [facility] [place]ONOSCOPY, DIAGNOSTIC (RECTUM) 06/07/2016 diverticulosis/[facility] COLONOSCOPY, DIAGNOSTIC (RECTUM) 08/29/2018 adenomatous polyp, radiation proctitis, diverticulosis / [facility] COLONOSCOPY, REMOVE LESION, W/SNARE 10/10/2005 [...] abnormalities, EF 55-59% EGD, FLEXIBLE, DIAGNOSTIC 06/07/2016 normal/[facility] EGD, FLEXIBLE, DIAGNOSTIC 08/29/2018 gastritis, Schatzki ring, hiatal hernia / [facility] EGD, FLEXIBLE, DIAGNOSTIC 05/05/2020 normal / [facility] EXPLORE/DECOMPRESS CRANIAL NERVES 11/01/2011 [facility] [place]PLORE/DECOMPRESS CRANIAL NERVES 11/01/2011 CRANIECTOMY SUBOCCIPITAL EXPLORATION CRANIAL NERVES performed by Kofi Meza MD at [place] [facility] FLUORO ESOPHAGRAM ENTIRE WO VIDEO 04/10/2001 EH with GERd INFORMATION 1997 laser destruction wart lower lip INJECT DX/THER SUBSTANCE INTERLAMINAR LUMBAR/SACRAL W IMAGE GUIDE 01/19/2020 INJECTION SPINE LUMBAR OR SACRAL performed by Cornelio Quan DO at OR [facility] MRI ABDOMEN WO CONTRAST 12/27/2012 OPEN SKULL FOR EXPLORATION 11/28/2011 craniotomy to clean out pseudomeningocele, [facility], Dr Ruano REMOVAL OF APPENDIX REMOVAL OF APPENDIX UPPER GI ENDOSCOPY N/A 03/02/2022 [facility], EGD , z-line regular 42cm from incisors, normal scope / no specimens collected / VASC ANKLE BRACHIAL INDEX 08/16/2006 AMARI 1.1, normal Family History Problem Relation Age of Onset Diabetes Mother Cancer Mother liver Stroke Mother TIA Hypertension Mother Cirrhosis Mother Heart Disorder Father CHF Other (carotid artery disease) Brother Thyroid Disorder Other Has patient ever had cancer? History of cancer, type: Prostate Ca Social History Tobacco Use Smoking status: Former Current packs/day: 0.00 Average packs/day: 1 pack/day for 20.0 years (20.0 ttl pk-yrs) Types: Cigarettes Start date: 02/13/1971 Quit date: 02/13/1991 Years since quittin.1 Passive exposure: Past (Father smoked cigars) Smokeless tobacco: Former Types: Snuff, Chew Quit date: 02/13/2007 Tobacco comments: Doesn't chew, use snuff, or smoke anymore Substance Use Topics Alcohol use: Not Currently Alcohol/week: 2.0 standard drinks of alcohol Types: 2 12 oz of beer per week Vaping/E-Cigarette Use Vaping/E-Cigarette Use Never User Passive Exposure No Counseling Given? No Vaping/E-Cigarette Substances Nicotine No Other No Flavoring No THC No Cannabidiol (CBD) No Vaping/E-Cigarette Devices Disposable No Pre-filled or Refillable Cartridge No Refillable Tank No Pre-filled Pod No Tobacco/Alcohol screening completed today? Yes Hospital Care: Admissions (within the last year): Hospital, Location: [facility] 11/2022 ER within 30 days: No Does the patient have an Advance Directives/Living Will? No. Does the patient want information? Yes. Information given to patient Advance Care Planning is important for all adults. Discussed the process of thinking and talking about future healthcare decisions. Pamphlet given to patient and to take home and discuss with family. Last Physical Exam: Last physical exam: 02/12/2023 Does patient see primary provider regularly? Yes Does patient see other providers? Yes, Specialist Patient Care Team updated? Yes Review of patient's allergies indicates: Allergen Reactions [...] complications Imdur [Isosorbide Nitrate] Diarrhea, fatigue, myalgias Immunization History Administered Date(s) Administered COVID-19 mRNA, LNP-s, No Preserve, 2-Dose Series (Apperian) 04/22/2020, 05/13/2020, 01/18/2021 Influenza, Whole Virus 12/02/1998, 02/03/2000 Pneumococcal Conjugate Vacc, 13 Valent (Prevnar) 05/27/2014 Pneumococcal Polysaccharide PPV23 (Pneumovax) 09/18/2003, 06/19/2014 Season Influenza, Quad, PF, Adjuvanted, 65+ Yrs, IM (FLUAD) 11/28/2019 Seasonal Influenza, PF, 6 M & above, IM , (FluLaval or Fluzone) 11/07/2016, 11/05/2017 Seasonal Influenza, Quadrivalent Hd (Fluzone Hd) 11/25/2020, 12/21/2021, 12/05/2022 Seasonal Influenza, Quadrivalent, No Preserve, IM 11/27/2014, 11/16/2015 Seasonal Influenza, Split, IIV3, With Preserve, Inj 12/25/2000, 12/13/2001, 12/16/2005, 11/22/2006,11/26/2007, 10/21/2008, 11/11/2009, 11/15/2010, 11/02/2011, 11/12/2012, 11/14/2013 Seasonal Influenza, Trivalent, Adjuvanted, 65+ yrs 11/19/2018 TD - Tetanus/Diptheria (ADULT) 08/19/1998, 09/07/2005 TDAP (age 10 and older)(Boostrix) 11/03/2014, 12/03/2022 Current Outpatient Medications Medication Sig Dispense Refill MULTIVITAMINS PO TABS daily VITAMIN D 1000 UNITS PO TABS 1 tab daily Meclizine HCl 25 MG Oral Tablet (ANTIVERT) Take 1 Tab by mouth 3 times a day as needed for Dizziness. 90 Tab 1 Acetaminophen 500 MG Oral Tablet Take [...] CUT, CRUSH OR CHEW. 90 Capsule 1 buPROPion HCl ER (XL) 150 MG Oral Tablet Extended Release 24 Hour (Wellbutrin XL) Take 1 Tablet by mouth in the morning. 90 Tablet 1 Metoprolol Succinate ER 50 MG Oral Tablet Extended Release 24 Hour (toPROL XL) Take 1 Tablet by mouth in the morning. 90 Tablet 5 hydrocortisone acetate (ANUSOL HC) 25 MG suppository Administer 1 Suppository into the rectum at bedtime. 12 Suppository 3 Triamcinolone Acetonide 0.1 % External Lotion (Aristocort) Apply topically to affected area 2 timesa day. Apply topically to affected area 2 times a day.Apply topically to affected area 2 times a day. (Patient not taking: Reported on 04/11/2023) 60 mL 1 AMBULATORY MISCELLANEOUS MEDICATION Apply 1-2 pumps (10-20mg) to affected area 1-2 times per day oras directed (Patient not taking: Reported on 04/11/2023) 90 g 3 No current facility-administered medications for this visit. 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 Yes Patient takes medications as prescribed? No, stopped taking Wellbutrin Patient manages own medications: No Patient uses a pill box? Yes, refill(s) completed by spouse Dental Exam: No Dentures Eye Screening: No, Has seen eye provider, will make appt, encouraged yearly exam. Declined Eye camera today Are you having trouble with hearing? Yes, has had this checked Do you use an assistive device to help your hearing? No Exercise Screening: does not exercise regularly Nutrition Assessment: Eats a balanced diet and Eats two meals a day Pain Screening: Are you having any pain? Yes. Pain Scale: 0 = none Sleep Screening Tool 'STOP': Has sleep apnea, uses CPAP Patient and Caregiver Support System: Patient lives with a spouse Means of Transportation: Family transports Patient lives in Bilevel - How many stairs: 07/11 with hand railing Community Resources: Not Applicable Functional Status and ADL Skills: Has patient ever had an amputation? No Functional Assessment: 71- Cares for self: unable to carry on normal activity or active work Ambulation: Patient ambulates with assistive device. Cane Dressing: Gets clothes and dresses without any assistance: Independent Able to move freely in chair or bed including turning over: Independent Repositioning (bed or chair): Not applicable Transfers: Independent Toileting: Goes to bathroom, uses toilet, arranges clothes and returns without any assistance: Independent Toileting: incontinent of bladder and continent of bowel Feeding: Self Bathing: Self; tub, grab bars, shower chair, mat to step out onto Requires none assistance with ADLs. Instrumental ADL's: Shopping: Maximum Assistance Housekeeping: Maximum Assistance Handling Finances: Maximum Assistance DME Vendor Name: Can't remember name Fall Risk Assessment: Can the patient demonstrate that he can stand from a sitting position? Yes Has the patient had a fall within the last 6 months? Yes Does the patient have a problem with his gait or balance? Yes Does the patient take 4 or more prescription medicines? Yes Does the patient use sedatives or narcotics? No Fall Risk Factors Present: History of falls within the past 6 months Yes Cause of fall: dizzy and fell Uses more than 4 medications Uses assistive devices Balance or gait disturbances Older than age 70 Cks-Vh-ach-Go Test: Time began at 1400. Patient stood from sitting position and walked approximately 10 feet, returned and sat down. Total time for yye-rr-kos-go test was 15 seconds. Ryk-Vf-gtf-Go Test completed? Yes Gender Specific Preventative Plan: Health Maintenance Topic Date Due Zoster Vaccines (1 of 2) Never done AAA Monitoring 06/22/2020 Diabetic Eye Exam 11/25/2021 CKD PHOS USE SMARTSET 82859 09/20/2022 COVID-19 Vaccine ( season) 2022 HbA1c 12/27/2022 Albumin/Creatinine Ratio 06/27/2023 TSH 06/27/2023 CKD HGB USE SMARTSET 29407 02/13/2024 Diabetic Foot Exam 04/10/2024 Depression Screening 04/10/2024 DTaP,Tdap,and Td Vaccines (3 - Td or Tdap) 12/03/2032 Influenza Vaccine (FLU shot) Completed Pneumococcal Vaccine: 65+ Years Completed Hepatitis B Aged Out MENINGOCOCCAL (MENACTRA/MENVEO) Aged Out GARDASIL-HPV IMMUNIZATION SERIES Aged Out Follow Up/ Referrals/Handouts: Depression screening - Completed Functional assessment - Completed Falls Risk screening - Completed, handouts shared with Exercise screening - If poor exercise habits, provide exercise handouts Nutrition assessment -. Education Provided and Handouts Provided Pain screening - No concerns Incontinence screening -Urinary incontinence, no new concerns Routine general medical examination at a health care facility (Primary) Diabetes mellitus without complication (HCC) - DIABETES FOOT EXAM Component Latest Ref Rng 06/26/2022 Hemoglobin A1C 4.0 - 5.6 % 6.3 (H) Estimated Average Glucose <126 mg/dL 134 (H) Continue to monitor and follow with PCP Risk and functional assessment Hypothyroidism, unspecified type Component Latest Ref Rng 06/26/2022 TSH 0.27 - 4.20 uIU/mL 1.14 -Med reconciliation completed and compliance discussed. - pt to continue present medications. Continue to monitor and follow with PCP Dyslipidemia, goal LDL below 100 Component Latest Ref Rng 04/28/2021 Non-HDL Cholesterol <=159 mg/dL 89 LDL Cholesterol <=129 mg/dL 61 -Med reconciliation completed and compliance discussed. - pt to continue present medications. Continue to monitor and follow with PCP Severe obstructive sleep apnea Using CPAP HTN, goal below 140/90 BP Readings from Last 3 Encounters: 04/11/23 130/72 03/01/23 124/72 02/28/23 118/68 -Med reconciliation completed and compliance discussed. - pt to continue present medications. Continue to monitor and follow with PCP Malignant neoplasm of prostate (HCC) -Med reconciliation completed and compliance discussed. - pt to continue present medications. Continue to monitor and follow with Urology Patient has been verbally educated on need or importance of Diabetic Eye Exam, Diabetic Foot Exam, Hemoglobin A1c, and Phosphorus DM Eye exam - offered clinic eye camera, patient declined, states he will follow up with outside eye provider DM Foot exam completed Hemoglobin, phosphorus ordered Discussed importance of Covid Vaccine: pt has received the vaccine Yes, Patient has received Covid vaccine. Would patient like to schedule next AWV visit? Yes Patient reports that he fell 4 days ago, had usual dizziness and fell onto wood pile, with rt shoulder. Unsure if he hit his head. says he did not. No HERNANDEZ, ROM to shoulder without difficulty. Didnot seek care. No pain today, reports occasional stiffness to rt shoulder. Dr. Lan notified. Dolores Thompson RN Fall Risk Plan of Care Documentation: - Current medications reconciled Patient encouraged to: - Exercise - Provide education materials for Core strengthening - Utilize assistive/adaptive devices - Provide education materials - Avoid multifocal lenses when walking - Avoid hazards in home - Provide education materials - Maintain a regular toileting schedule Dolores Thompson RN 04/11/2023 Urinary Incontinence Plan of Care Documentation: (This education is for all patients over 65 regardless of symptoms) Current medications reconciled. Patient encouraged to: Practice kegal exercises Provide education materials Use the restroom every 2 hours throughout the day Limit caffeine, alcohol, spicy foods and acidic foods Keep a bladder diary Limit fluid intake 3-4 hours before bed Lose weight Prevent constipation Take fluid pills at a time when you can get to the bathroom quickly Control sugar better if diabetic Limit fluid intake to 60 oz. per day Wear support stockings (TEDs)if you have edema Dolores Thompson RN 04/11/2023M Foot Exam completed today. Dolores Thompson RN Socks and Shoes Removed for Annual Diabetic Foot Screening RIGHT FOOT: No Reddened, Cracking, Or Open Areas Noted. RIGHT Dorsalis Pedis Pulse: Palpable RIGHT Posterior Tibial Pulse: Palpable RIGHT Monofilament:Patient reports feeling monofilament pressure on plantar surface of foot LEFT FOOT: No Reddened, Cracking or Open Areas Noted. LEFT Dorsalis Pedis Pulse: Palpable LEFT Posterior Tibial Pulse: Palpable LEFT Monofilament:Patient reports feeling monofilament pressure on plantar surface of foot Do you need diabetic shoes: N/A documented in this encounter Plan of Treatment Upcoming Encounters Date Type Department Care Team (Late st Contact Info) Description 04/16/2023 4:15 PM EDT Office Visit Urology, [facility] [address] [facility] [place] [address] Ronan Tejada MD [address] [place] [address] 06/25/2023 2:00 PM EDT Office Visit [facility] [address] [place] [phone] Jonathan Lan MD [address] [place] [address] 07/05/2023 3:40 PM EDT Office Visit Neurology [facility] [address] [facility] [place] [address] Riya Mendez MD [address] [facility] [place], [place] [address] 08/01/2023 8:30 AM EDT Procedure Only Endoscopy, [place] [address] [facility] [place] [address] Yasmin Palma DO [address] [place] [address] 04/18/2024 2:00 PM EDT Nurse Only Ancillary Department, [place] [address] [facility] [place] [id number] [place], Nurse [facility] [address] [facility] [place] [id number] Scheduled Orders Name Type Priority Associated Diagnoses Orde r Schedule HEMOGLOBIN A1C Lab Routine Diabetes mellitus without complication (HCC) Expected: 04/12/2023 (Approximate), Expires: 05/12/2024 PHOSPHORUS Lab Routine Stage 3a chronic kidney disease Expected: 04/12/2023 (Approximate), Expires: 04/11/2024 Scheduled Procedures Name Priority Associated Diagnoses Date/Ti me COLONOSCOPY FLEXIBLE PROXIMA L DIAGNOSTIC Recall Inflammatory polyps of colon with rectal bleeding Diverticulosis COLONOSCOPY FLEXIBLE PROXIMA L DIAGNOSTIC Recall H/O colonoscopy Health Maintenance Due Date Last Done Comments Zoster Vaccines (1 of 2) 1986 AAA Monitoring 06/22/2020 06/23/2019 Diabetic Eye Exam 11/25/2021 11/25/2020, , 05/31/2017, Additional history exists CKD PHOS USE SMARTSET 70990 09/20/202209/05, 01/18/2021, 06/23/2019, Additional history exists COVID-19 Vaccine ( season) 2022 01/18/2021, 06/05/2020, 05/13/2020, Additional history exists HbA1c 12/27/2022 06/26/2022, 11/0 07/2019, 12/18/2018, Additional history exists Albumin/Creatinine Ratio 06/27/2023 023, 06/10/2018, 06/26/2017, Additional history exists TSH 06/27/2023 06/26/2022, 09/05, 10/25/2020, Additional history exists CKD HGB USE SMARTSET 33202 02/13/202402/12, 02/12/2023, 12/13/2022, Additional history exists Depression [...] as of this encounter Visit Diagnoses Diagnosis Routine general medical examination at a health care facility- Primary Diabetes mellitus without complication (HCC) Type II or unspecified type diabetes mellitus without mention of complication, not stated as uncontrolled Risk and functional assessment Screening for unspecified condition Hypothyroidism, unspecified type Dyslipidemia, goal LDL below 100 Other and unspecified hyperlipidemia Severe obstructive sleep apnea Obstructive sleep apnea (adult) (pediatric) HTN, goal below 140/90 Unspecified essential hypertension Malignant neoplasm of prostate (HCC) Malignant neoplasm of prostate Stage 3a chronic kidney disease documented in this encounter Advance Directives Latest [...] the patient have Health Care Power of Wheat Grower? No Care Teams Loading Unit Operator Seating Relationship Specialty Start Date End Date Jonathan Lan MD [address] [place] [address] PCP - General Family Medicine 08/15/12 documented as of this encounter
--- OUTSIDE RECORDS SUMMARY | 2023-07-20 22:52 | External Medical Summary ---
Author Name Unknown Address Unknown Organization [id number]:LABORATORY [facility] [place] - [address] [place] [address] Laboratory Report Ordering Provider Test Date Status YASSINE ZULUAGA 02/12/2023 16:22:03 Final Observation Date Value Abnormality Reference (Units ) Status BUN 02/12/2023 16:22:03 16 6-20 (mg/dL) Final Creatinine 02/12/2023 16:22:03 1.2 0.6-1.2 (mg/dL) Final Glomerular filtration rate/1.73 sq M.predicted [Volume Rate/Area] in Serum, Plasma or Blood by Creatinine-based formula (CKD-EPI) 02/12/2023 16:22:03 58 Below low normal >=60 (mL/min) Final eGFR is calculated based on the CKD-EPI 2020 equation SODIUM 02/12/2023 16:22:03 137 135-146 (m mol/L) Final Potassium 02/12/2023 16:22:03 4.7 3.5-5.1 (m mol/L) Final Cl 02/12/2023 16:22:03 104 98-107 (mm ol/L) Final CO2 02/12/2023 16:22:03 25 22-32 (mmo l/L) Final Anion gap 02/12/2023 16:22:03 8 7-15 (mmol /L) Final Glucose 02/12/2023 16:22:03 95 70-120 (mg /dL) Final Calcium 02/12/2023 16:22:03 9.7 8.4-10.2 ( mg/dL) Final Performing Location LABORATORY [facility] - [address] [place] [address]
--- OUTSIDE RECORDS SUMMARY | 2023-07-20 22:52 | External Medical Summary ---
Author Name Unknown Address Unknown Organization K01:LAB[facility]ATORY [facility] - [address] [place] [address] Laboratory Report Ordering Provider Test Date Status AIDEN ZEPEDA 02/12/2023 16:22:03 Final Observation Date Value Abnormality Reference (Units ) Status PSA 02/12/2023 16:22:03 <0.02 <4.10 (ng/ mL) Final Performing Location LABORATORY [facility] - [address] [place] [address]
--- OUTSIDE RECORDS SUMMARY | 2023-07-20 22:52 | External Medical Summary | Summary of Care ---
Author Name Unknown Organization [facility] Address [address] [facility] [place] [address] Phone [phone] Care Team Providers Care Cna Ltc Name Role Phone Jonathan Lan MD Primary Care Provider [phone] Reason for Visit * Reason Onset Date Comments Med Request 01/19/2023 Encounter Details Date Type Department Care Team (Late st Contact Info) Description 01/19/2023 Telephone [facility] [address] [place] [address] Jonathan Lan MD [address] [place] [address] Med Request Allergies Active Allergy Reactions Criticality Noted [...] as of this encounter (statuses as of 01/22/2023) Medications Medication Sig Dispensed Refills Start Date [...] EVERY DAY 90 Capsule 3 3 Active Metoprolol Succinate ER 50 MG Oral Tablet Extended Release 24 Hour (toPROL XL)Indications:HTN, goal below 140/90 Take 1 Tablet by mouth in the morning. 90 Tablet 5 3 Active Vitamin B12 1000 MCG Oral Tablet Extended ReleaseIndications: Vitamin B12 deficiency Take one daily 0 3 Active Finasteride 5 MG Oral Tablet (Proscar)Indication [...] OTHER MEDS) 90 Tablet 2 3 Active Docusate Sodium 100 MG Oral Capsule (Colace) Take 1 Capsule by mouth in the morning and 1 Capsule before bedtime. 10 Capsule 0 3 Active DULoxetine HCl 60 MG Oral [...] the morning. 90 Tablet 1 3 Active buPROPion HCl ER (XL) 150 MG Oral Tablet Extended Release 24 Hour (Wellbutrin XL) Take 1 Tablet by mouth in the morning. 0 01/23/20 23 Discontinu ed(Refill) documented as of this encounter (statuses as of 01/22/2023) Active Problems Problem Noted Date Diagnosed Date [...] as of this encounter (statuses as of 01/22/2023) Resolved Problems Problem Noted Date Diagnosed Date [...] as of this encounter (statuses as of 01/22/2023) Immunizations Name Administration Dates Next Due COVID-19 mRNA, LNP-s, No Pre serve, 2-Dose Series ([employer]) 01/18/2021,05/13/2020,04/22/2020 Pneumococcal Conjugate Vacc, 13 Valent (Prevnar) [...] encounter Miscellaneous Notes * Telephone Encounter - Shaquille Bolden PHARM Tech - 01/19/2023 4:30 PM EST Pt spouse calling requesting the following medication below that is listed as "Historical". The following information was provided: Medication Name: Bupropion HCI ER Strength: 150mg Directions: QD Preferred Quantity: 30 Previous Prescriber: [facility] Preferred Pharmacy: [id number] [address] [facility] Please review and approve if appropriate. Thanks, Shaquille Maurice, Pht Floor Associate [facility] ([facility]) (formerly Telepharmacy). 01/19/2023,4:30 PM documented in this encounter Plan of Treatment Upcoming Encounters Date Type Department Care Team (Late st Contact Info) Description 02/28/2023 12:30 PM EST Office Visit Vascular Surgery, [facility] [address] [facility] [place] [address] Scot Ludwig MD [address] [facility] [address] 03/14/2023 2:00 PM EST Nurse Only Ancillary Department, [place] [address] [place] [facility] [place] [address] [place], Nurse [facility] [address] [facility] [place] [address] 06/25/2023 2:00 PM EDT Office Visit Family Practice, [place] [address] [place] [facility] [place] [phone] Jonathan Lan MD [address] [place] [address] 07/05/2023 3:40 PM EDT Office Visit Neurology [facility] [address] [facility] [place] [address] Riya Mendez MD [address] [facility] [place] [address] Scheduled Procedures Name Priority Associated Diagnoses Date/Ti [...] Additional history exists CKD PHOS USE SMARTSET 59233 09/20/2022 0807/2021, 01/18/2021, 06/23/2019, Additional history exists COVID-19 Vaccine ( season) 2022 01/18/2021, 06/05/2020, 05/13/2020, Additional history exists HbA1c 12/27/2022 06/26/2022, 11/0 07/2019, 12/18/2018, Additional history exists Depression Screening 03/13/2023 03/13/2022 Diabetic Foot Exam 03/13/2023 03/13/2022, 1 , 11/27/2014, Additional history exists Albumin/Creatinine Ratio 06/27/2023 023, 06/10/2018, 06/26/2017, Additional history exists TSH 06/27/2023 06/26/2022, 09/05, 10/25/2020, Additional history exists CKD HGB USE SMARTSET 48630 12/14/202312/13, 12/06/2022, 12/05/2022, Additional history exists DTaP,Tdap,and Td Vaccines (3 [...] the patient have Health Care Power of Foam Charger? No Care Teams Cna Ltc Relationship Specialty Start Date End Date Jonathan Lan MD [address] [place] [address] PCP - General Family Medicine 08/15/12 documented as of this encounter
--- OUTSIDE RECORDS SUMMARY | 2023-07-20 22:52 | External Medical Summary ---
Author Name Unknown Address Unknown Organization K01:[facility] [place] [address] [facility] [address] Laboratory Report Ordering Provider Test Date Status YASSINE ZULUAGA 02/12/2023 16:22:03 Final Observation Date Value Abnormality Reference (Units ) Status WBC, Total 02/12/2023 16:22:03 5.21 4.00-10.80 (K/uL) Final RBC 02/12/2023 16:22:03 4.13 4.50-5.25 (M/uL) Final Hemoglobin 02/12/2023 16:22:03 12.9 Below low normal 14.0-16.8 (g/dL) Final HCT 02/12/2023 16:22:03 39.3 Below low normal 40.0-48.4 (%) Final MCV 02/12/2023 16:22:03 95.2 82.0-99.5 (fL) Final MCH 02/12/2023 16:22:03 31.2 27.0-34.0 (pg) Final MCHC 02/12/2023 16:22:03 32.8 32.0-36.0 (g/dL) Final RDW 02/12/2023 16:22:03 12.9 11.5-15.5 (%) Final Platelets 02/12/2023 16:22:03 169 140-400 (K/uL) Final MPV 02/12/2023 16:22:03 12.2 6.6-11.1 (fL) Final Nucleated erythrocytes/100 leukocytes [Ratio] in Blood by Automated count 02/12/2023 16:22:03 0 <=0 (/100 WBCs) Final Performing Location LAB[facility] - [address] [place] [address]
--- OUTSIDE RECORDS SUMMARY | 2023-07-20 22:52 | External Medical Summary | Summary of Care ---
Author Name Unknown Organization [facility] Address [address] [facility] [place] [address] Phone [phone] Care Team Providers Care Associate Professor Of Philosophy Name Role Phone Jonathan Lan MD Primary Care Provider [phone] Reason for Visit * Reason Comments Outpatient Testing Encounter Details Date Type Department Care Team (Late st Contact Info) Description 02/12/2023 3:50 PM EST Laboratory Laboratory, [place] [address] [place] [phone] [place], [facility] [address] [place] [address] Prostate cancer (HCC); Malaise and fatigue; Dyspnea, unspecified type; Diarrhea, unspecified type Allergies Active Allergy Reactions Criticality Noted Date [...] as of this encounter (statuses as of 02/12/2023) Medications Medication Sig Dispensed Refills Start Date [...] as of this encounter (statuses as of 02/12/2023) Active Problems Problem Noted Date Diagnosed Date [...] as of this encounter (statuses as of 02/12/2023) Resolved Problems Problem Noted Date Diagnosed Date [...] as of this encounter (statuses as of 02/12/2023) Immunizations Name Administration Dates Next Due COVID-19 mRNA, LNP-s, No Pre serve, 2-Dose Series ([employer]) 01/18/2021,05/13/2020,04/22/2020 Pneumococcal Conjugate Vacc, 13 Valent (Prevnar) [...] Care Team (Late st Contact Info) Description 02/20/2023 1:30 PM EST Office Visit Gastroenterology, [facility] [address] [facility] [place] [address] Urszula Hoffmann CRNP [address] [facility] [place] [address] 02/20/2023 4:45 PM EST Imaging Radiology [facility] [address] [facility] [place] [address] 02/28/2023 12:30 PM EST Office Visit Vascular Surgery, [facility] [address] [facility] [place] [address] Scot Ludwig MD [address] [place] [address] 03/20/2023 2:00 PM EST Nurse Only Ancillary Department, [place] [address] [place] [address] [place], Nurse [facility] [address] [place] [address] 06/25/2023 2:00 PM EDT Office Visit [facility], [place] [address] [facility], [place] [phone] Jonathan Lan MD [address] [place] [facility] [place] [address] 07/05/2023 3:40 PM EDT Office Visit Neurology [facility] [place] [address] [facility] [place] [address] Riya Mendez MD [address] [facility] [place] [address] Pending Results Name Type Priority Associated Diagnoses Date /Time PSA Lab Routine Prostate cancer (HCC) 02/12/2023 4:22 PM EST CBC WITH WBC DIFFERENTIAL Lab Routine Malaise and fatigue Dyspnea, unspecified type 02/12/2023 4:22 PM EST BNP, NT-PRO Lab Routine Malaise and fatigue Dyspnea, unspecified type 02/12/2023 4:22 PM EST BASIC METABOLIC PANEL Lab Routine Diarrhea, unspecified type 02/12/2023 4:22 PM EST CBC Lab Routine Malaise and fatigue Dyspnea, unspecified type 02/12/2023 4:22 PM EST DIFFERENTIAL, AUTOMATED Lab Routine Malaise and fatigue Dyspnea, unspecified type 02/12/2023 4:22 PM EST Scheduled Procedures Name Priority Associated Diagnoses Date/Ti [...] Additional history exists CKD PHOS USE SMARTSET 45498 09/20/2022 0807/2021, 01/18/2021, 06/23/2019, Additional history exists COVID-19 Vaccine (2022- season) 2022 01/18/2021, 06/05/2020, 05/13/2020, Additional history exists HbA1c 12/27/2022 06/26/2022, 07/2019, 12/18/2018, Additional history exists Depression Screening 03/13/2023 03/13/2022 Diabetic Foot Exam 03/13/2023 03/13/2022, 1 , 11/27/2014, Additional history exists Albumin/Creatinine Ratio 06/27/2023 023, 06/10/2018, 06/26/2017, Additional history exists TSH 06/27/2023 06/26/2022, 09/05, 10/25/2020, Additional history exists CKD HGB USE SMARTSET 89825 12/14/202312/13, 12/06/2022, 12/05/2022, Additional history exists DTaP,Tdap,and [...] as of this encounter Visit Diagnoses Diagnosis Prostate cancer (HCC) Malignant neoplasm of prostate Malaise and fatigue Other malaise and fatigue Dyspnea, unspecified type Diarrhea, unspecified type documented in this encounter Advance Directives Latest [...] the patient have Health Care Power of Plant Pathologist? No Care Teams Associate Professor Of Philosophy Relationship Specialty Start Date End Date Jonathan Lan MD [address] [place] [address] PCP - General Family Medicine 08/15/12 documented as of this encounter
--- OUTSIDE RECORDS SUMMARY | 2023-07-20 22:52 | External Medical Summary | Summary of Care ---
Author Name Unknown Organization [facility] Address [address] [place] [address] Phone [phone] Care Team Providers Care Registered Nurse Step Down Name Role Phone Jonathan Lan MD Primary Care Provider [phone] Reason for Visit * Reason Onset Date Comments Fall 01/24/2023 Encounter Details Date Type Department Care Team (Late st Contact Info) Description 01/24/2023 Compressed Air Pile Driver Operator Telephone Care Coordination and Integration [address] [facility] [place] [address] Riya Graham RN [address] [place] [address] Fall Allergies Active Allergy Reactions Criticality Noted Date [...] as of this encounter (statuses as of 01/24/2023) Medications Medication Sig Dispensed Refills Start Date [...] EVERY DAY 90 Capsule 3 08/07/2022 Active Metoprolol Succinate ER 50 MG Oral Tablet Extended Release 24 Hour (toPROL XL)Indications:HTN, goal below 140/90 Take 1 Tablet by mouth in the morning. 90 Tablet 5 08/10/2022 Active Vitamin B12 1000 MCG Oral Tablet [...] the morning. 90 Tablet 1 01/22/2023 Active documented as of this encounter (statuses as of 01/24/2023) Active Problems Problem Noted Date Diagnosed Date [...] as of this encounter (statuses as of 01/24/2023) Resolved Problems Problem Noted Date Diagnosed Date [...] as of this encounter (statuses as of 01/24/2023) Immunizations Name Administration Dates Next Due COVID-19 mRNA, LNP-s, No Pre serve, 2-Dose Series (Firefly Mobile) 01/18/2021,05/13/2020,04/22/2020 Influenza, Whole Virus 02/03/2000,12/02/1998 Pneumococcal Conjugate [...] Telephone Encounter - Jonathan Lan MD - 01/24/2023 7:24 PM EST His problems are chronic. Fall was 19 days ago so if he were going to have any problem with intracranial bleed it would have occurred. Unfortunately he is at high risk for recurrent falls but he is not going to be convinced to change his habits. * Telephone Encounter - Riya Graham RN - 01/24/2023 1:[address] Lan, Patient's calls in to report the following: S: Patient's patient had a fall at home on 01/05/23 & hit his head O: Patient was recommended by [facility] to go to the ER after the fall, he refused Per patient's , patient is alert & oriented, having some dizziness & weakness Patient followed by [facility], they have documented that they have talked to the patient about importance of being evaluated after the fall, but patient continues to refuse to go to the hospital Patient needs much encouragement to eat & drink fluids, having occasional headaches A: Phone Follow Up P: Encouraged to get an appointment for him to be evaluated, if his symptoms get worse that heneeds to go to the ER Wondering if you call & speak to him, maybe he will agree to have an evaluation Patient's overwhelmed trying to care for her , both sons live out of state Let me know if you have any additional recommendations thanks Riya Graham RN, BSN, [place] [id number] [facility] [phone] documented in this encounter Plan of Treatment Upcoming Encounters Date Type Department Care Team (Late st Contact Info) Description 02/28/2023 12:30 PM EST Office Visit Vascular Surgery, [facility] [address] [facility] [place] [address] Scot Ludwig MD [address] [place] [address] 03/14/2023 2:00 PM EST Nurse Only Ancillary Department, [place] [address] [place] [address] [place], Nurse Annual Wellness [address] [place] [address] 06/25/2023 2:00 PM EDT Office Visit [facility] [address] [place] [phone] Jonathan Lan MD [address] [place], [place] [phone] 07/05/2023 3:40 PM EDT Office Visit Neurology [facility] [address] [place] [address] Riya Mendez MD [address] [facility] [place] [address] Scheduled Procedures Name Priority Associated Diagnoses Date/Ti [...] Additional history exists CKD PHOS USE SMARTSET 65914 09/20/202209/05, 01/18/2021, 06/23/2019, Additional history exists COVID-19 Vaccine (2022- season) 2022 01/18/2021, 06/05/2020, 05/13/2020, Additional history exists HbA1c 12/27/2022 06/26/2022, 11/0 07/2019, 12/18/2018, Additional history exists Depression Screening 03/13/2023 03/13/2022 Diabetic Foot Exam 03/13/2023 03/13/2022, 1 , 11/27/2014, Additional history exists Albumin/Creatinine Ratio 06/27/2023 023, 06/10/2018, 06/26/2017, Additional history exists TSH 06/27/2023 06/26/2022, 09/05, 10/25/2020, Additional history exists CKD HGB USE SMARTSET 25388 12/14/202312/13, 12/06/2022, 12/05/2022, Additional history exists DTaP,Tdap,and [...] the patient have Health Care Power of Reinsurance Clerk? No Care Teams Registered Nurse Step Down Relationship Specialty Start Date End Date Jonathan Lan MD [address] [place] [address] PCP - General Family Medicine 08/15/12 documented as of this encounter
--- OUTSIDE RECORDS SUMMARY | 2023-07-20 22:52 | External Medical Summary ---
Author Name Unknown Address Unknown Organization K01[place] [place] [address] [facility] [place] [address] Laboratory Report Ordering Provider Test Date Status YASSINE ZULUAGA 02/12/2023 16:22:03 Final Observation Date Value Abnormality Reference (Units ) Status SYNC LEUKOCYTES IN BLOOD BY AUTOMATED COUNT 02/12/2023 16:22:03 5.21 4.00-10.80 (K/uL) Final Segs 02/12/2023 16:22:03 59.7 40.0-75.0 (%) Final Lymphs % 02/12/2023 16:22:03 20.3 18.0-42.0 (%) Final Monos 02/12/2023 16:22:03 12.3 Above high normal 1.0-11.0 (%) Final Eosinophils 02/12/2023 16:22:03 6.5 Above high normal 0.0-6.0 (%) Final Basos 02/12/2023 16:22:03 1.0 0.0-2.0 (%) Final Immature Granulocyte, Percent 02/12/2023 16:22:03 0.2 0.0-2.0 (%) Final Absolute Segs 02/12/2023 16:22:03 3.11 1.80-7.70 (K/uL) Final Lymphs, absolute 02/12/2023 16:22:03 1.06 1.00-4.80 (K/ul) Final Monos, Abs 02/12/2023 16:22:03 0.64 0.00-1.10 (K/uL) Final Eos, Abs 02/12/2023 16:22:03 0.34 0.00-0.70 (K/uL) Final Basos, Abs 02/12/2023 16:22:03 0.05 0.00-0.20 (K/uL) Final Immature Granulocytes, Number 02/12/2023 16:22:03 0.01 0.00-0.20 (K/uL) Final Performing Location [facility] [place] [facility] [place] [address]
--- OUTSIDE RECORDS SUMMARY | 2023-07-20 22:52 | External Medical Summary | Summary of Care ---
Author Name Unknown Organization [facility] Address [address] [facility] [place] [address] Phone [phone] Care Team Providers Care Glass Inspector Name Role Phone Margareth Lan MD Primary Care Provider [phone] Reason for Visit * Reason Onset Date Comments Medication Refill 02/04/2023 Encounter Details Date Type Department Care Team (Late st Contact Info) Description 02/04/2023 Refill Cardiology, [facility] [address] [place] [address] Margareth Yoon, PA-C [address] [place] [address] HTN, goal below 140/90 Allergies Active Allergy Reactions Criticality Noted Date [...] as of this encounter (statuses as of 02/07/2023) Medications Medication Sig Dispensed Refills Start Date [...] the morning. 90 Tablet 5 4 Active Metoprolol Succinate ER 50 MG Oral Tablet Extended Release 24 Hour (toPROL XL)Indications:HTN, goal below 140/90 Take 1 Tablet by mouth in the morning. 90 Tablet 5 3 02/05/20 23 Discontinu ed(Refill) documented as of this encounter (statuses as of 02/07/2023) Active Problems Problem Noted Date Diagnosed Date [...] as of this encounter (statuses as of 02/07/2023) Resolved Problems Problem Noted Date Diagnosed Date [...] as of this encounter (statuses as of 02/07/2023) Immunizations Name Administration Dates Next Due COVID-19 [...] Miscellaneous Notes * Telephone Encounter - Margareth Yoon PA-C - 02/07/2023 12:35 PM ESTSigned Prescriptions: Disp Refills Metoprolol Succinate ER 50 MG Oral Tablet *90 Tab*5 Sig: Take 1 Tablet by mouth in the morning. Authorizing Provider: MARGARETH YOON * Telephone Encounter - Fela Dunham LPN - 02/07/2023 10:23 AM ESTPending Prescriptions: Disp Refills Metoprolol Succinate ER 50 MG Oral Tablet *90 Tab*5 Sig: Take 1 Tablet by mouth in the morning. * Telephone Encounter - Fela Dunham LPN - 02/07/2023 10:22 AM EST Pending Prescriptions: Disp Refills Metoprolol Succinate ER 50 MG Oral Tablet*90 Tab*5 Sig: Take 1 Tablet by mouth in the morning. documented in this encounter Plan of Treatment Upcoming Encounters Date Type Department Care Team (Late st Contact Info) Description 02/12/2023 3:00 PM EST Office Visit [address] [address] Margareth Lan MD [address] [place] [address] 02/28/2023 12:30 PM EST Office Visit Vascular Surgery, [facility] [address] [place] [address] Scot Ludwig MD [address] [place] [address] 03/14/2023 2:00 PM EST Nurse Only Ancillary Department, [place] [address] [place] [address] [place], Nurse Annual Wellness [address] [place] [address] 06/25/2023 2:00 PM EDT Office Visit [place] [address] [place] [address] Margareth Lan MD [address] [place] [address] 07/05/2023 3:40 PM EDT Office Visit Neurology [address] [facility] [place] [address] [facility] [place] [address] Riya Mendez MD [address] [facility] [place] [address] Scheduled Procedures Name Priority Associated Diagnoses Date/Ti [...] Additional history exists CKD PHOS USE SMARTSET 33746 09/20/202209/05, 01/18/2021, 06/23/2019, Additional history exists COVID-19 Vaccine (2022- season) 2022 01/18/2021, 06/05/2020, 05/13/2020, Additional history exists HbA1c 12/27/2022 06/26/2022, 07/2019, 12/18/2018, Additional history exists Depression Screening 03/13/2023 03/13/2022 Diabetic Foot Exam 03/13/2023 03/13/2022, 1 , 11/27/2014, Additional history exists Albumin/Creatinine Ratio 06/27/2023 023, 06/10/2018, 06/26/2017, Additional history exists TSH 06/27/2023 06/26/2022, 09/05, 10/25/2020, Additional history exists CKD HGB USE SMARTSET 92036 12/14/202312/13, 12/06/2022, 12/05/2022, Additional history exists DTaP,Tdap,and [...] as of this encounter Visit Diagnoses Diagnosis HTN, goal below 140/90 Unspecified essential hypertension documented in this encounter Advance Directives Latest [...] the patient have Health Care Power of Merchandising Manager? No Care Teams Glass Inspector Relationship Specialty Start Date End Date Margareth Lan MD [address] [place] [address] PCP - General Family Medicine 08/15/12 documented as of this encounter
--- OUTSIDE RECORDS SUMMARY | 2023-07-20 22:52 | External Medical Summary ---
Author Name Unknown Address Unknown Organization K01:[facility] [place] [address] [place] [address] Laboratory Report Ordering Provider Test Date Status YASSINE ZULUAGA 02/12/2023 16:22:03 Final Exclude Heart Failure: <300 pg/mL
Diagnose Heart Failure:
Age <50 yr: >450 pg/mL
50-75 yr: >900 pg/mL
>75 yr: >1800 pg/mL
GFR is 30-59 mL/min: >1200 pg/mL or Age- adjusted values
GFR <30 mL/min: do not use, not reliable

Prognostic threshold: 1000 pg/mL Observation Date Value Abnormality Reference (Units ) Status BNP, Pro-hormone 02/12/2023 16:22:03 366 Above high no rmal <300 (pg/mL) Final Performing Location [facility] [place] [address] [place] [address]
--- OUTSIDE RECORDS SUMMARY | 2023-07-20 22:52 | External Medical Summary | Summary of Care ---
Author Name Unknown Organization [facility] Address [address] [place] [address] Phone [phone] Care Team Providers Care Log Grader Name Role Phone Jonathan Lan MD Primary Care Provider [phone] Reason for Visit * Reason Onset Date Comments Fall 01/24/2023 Encounter Details Date Type Department Care Team (Late st Contact Info) Description 01/24/2023 Civil Engineer Telephone Care Coordination and Integration [address] [facility] [place] [address] Riya Graham RN [address] [place] [address] Fall Allergies Active Allergy Reactions [...] mRNA, LNP-s, No Pre serve, 2-Dose Series (ShangPin) 01/18/2021,05/13/2020,04/22/2020 Pneumococcal Conjugate Vacc, 13 Valent (Prevnar) [...] his head O: Patient was recommended by [facility] to go to the ER after the fall, he refused Per patient's , patient is alert & oriented, having some dizziness & weakness Patient followed by [facility], they have documented that they have talked [...] additional recommendations thanks Riya Graham RN, BSN, [address] [address] documented in this encounter Plan of Treatment Upcoming Encounters Date Type Department Care Team (Late st Contact Info) Description 02/28/2023 12:30 PM EST Office Visit Vascular Surgery, [facility] [address] [place] [address] Scot Ludwig MD [address] [place], [place] [phone] 03/14/2023 2:00 PM EST Nurse Only Ancillary Department, [place] [address], [place] [phone] [place], Nurse Annual Wellness [address] [place], [place] [phone] 06/25/2023 2:00 PM EDT Office Visit Family Practice, [place] [address] [place] [address] Jonathan Lan MD [address] [place], [place] [phone] 07/05/2023 3:40 PM EDT Office Visit Neurology [facility] [address] [place] [address] Riya Mendez MD [address] [facility] [place] [address] Scheduled Procedures Name Priority Associated Diagnoses Date/Ti [...] Additional history exists CKD PHOS USE SMARTSET 39572 09/20/202209/05, 01/18/2021, 06/23/2019, Additional history exists COVID-19 Vaccine ( season) 2022 01/18/2021, 06/05/2020, 05/13/2020, Additional history exists HbA1c 12/27/2022 06/26/2022, 11/0 07/2019, 12/18/2018, Additional history exists Depression Screening 03/13/2023 03/13/2022 Diabetic Foot Exam 03/13/2023 03/13/2022, 1 , 11/27/2014, Additional history exists Albumin/Creatinine Ratio 06/27/2023 023, 06/10/2018, 06/26/2017, Additional history exists TSH 06/27/2023 06/26/2022, 09/05, 10/25/2020, Additional history exists CKD HGB USE SMARTSET 67875 12/14/202312/13, 12/06/2022, 12/05/2022, Additional history exists DTaP,Tdap,and [...] the patient have Health Care Power of Dean Of Students? No Care Teams Log Grader Relationship Specialty Start Date End Date Jonathan Lan MD [address] [place] [address] PCP - General Family Medicine 08/15/12 documented as of this encounter
--- OUTSIDE RECORDS SUMMARY | 2023-07-20 22:52 | External Medical Summary | Summary of Care ---
Author Name Unknown Organization [facility] Address [address] [place] [facility] [place] [address] Phone [phone] Care Team Providers Care Lab Manager Name Role Phone Jonathan Lan MD Primary Care Provider [phone] Reason for Referral * Evaluate & Treat - Unlimited Visits (Within 10 days (routine)) - Authorized Specialty Diagnoses / Procedures Referred By Eufemia cooper Referred To Contact Gastroenterology Diagnoses Diarrhea, unspecified type Dysphagia, unspecified type Jonathan Lan MD [address] [place] [address] Referral ID Status Reason Start Date Expiration Date Visits Requested Visits Authorized [id number] Authorized Specialty Services Required 02/12/2023 999 999 Question Answer Referral Priority Within 10 days (routine) Where should this appointment be scheduled? [facility] For what condition is the patient being referred? All Gastro Conditions Comments Dysphagia/ Pills feel stuck. Diarrhea. Had EGD 1 year ago for much the same and that was normal. * Precert (Within 10 days (routine)) - Authorized Specialty Diagnoses / Procedures Referred By Eufemia cooper Referred To Contact Radiology Diagnoses Personal history of fall Procedures CT HEAD/BRAIN WO CONTRAST Jonathan Lan MD [address] [place] [address] Referral ID Status Reason Start Date Expiration Date V isits Requested Visits Authorized [id number] Authorized 02/12/2023 999 999 Reason for Visit * Reason Comments Hospital Follow-Up Hospital follow up f or head wound, dizzy, confuse, mouth sore Encounter Details Date Type Department Care Team (Late st Contact Info) Description 02/12/2023 3:00 PM EST Office Visit [facility] [address] [place] [address] Jonathan Lan MD [address] [place] [address] Personal history of fall*; Diarrhea, unspecified type; Malaise and fatigue; Dyspnea, unspecified type; Dysphagia, unspecified type Allergies Active Allergy Reactions Criticality [...] Sign Reading Time Taken Comments Blood Pressure 122/68 02/12/2023 3:01 PM EST Pulse 70 02/12/2023 3:01 PM EST Temperature 36 C (96.8 F) 02/12/2023 3:01 PM EST Respiratory Rate 18 02/12/2023 3:01 PM EST Oxygen Saturation 98% 02/12/2023 3:01 PM EST Inhaled Oxygen Concentration - - Weight 84.8 kg (187 lb) 02/12/2023 3:01 PM EST Height 185.4 cm (6' 1") 02/12/2023 3:01 PM EST Body Mass Index 24.67 02/12/2023 3:01 PM EST documented in this encounter Functional [...] Progress Notes * Jonathan Lan MD - 02/12/2023 3:27 PM EST Subjective: Parth Jett is a 87 year old male. Chief Complaint Patient presents with Hospital Follow-Up Hospital follow up for head wound, dizzy, confuse, mouth sore HPI: UM 87-YEAR-OLD who continues to struggle. He had suffered a subdural hematoma and a fall in the fall/November. He actually had repeat CT scan relatively recently that showed complete resolution of the hematoma. Unfortunately had another fall backwards hitting the back of his head. Since then hehas had some degree of dizziness every day. He continues to have overwhelming fatigue and some shortness of breath with activity. Although he did note these symptoms, they are not really new. He is having dental issues. He lost the post in his maxilla that Um his upper denture clipped into. So a new denture plate was made but it has never fit right. He is looking for another dentist. He has been bothered with Um frequent stooling. Several days a week he has a number of bowel movements. He has noted occasionally pills in the stool that are undigested. He specifically notes that there tablets and not the shells of a capsule. He also is again having problems with swallowing especially notes difficulty swallowing pills. He has found himself regurgitating pills back up as he felt like they got stuck. He had an upper endoscopy a year ago which was unremarkable not showing any esophageal narrowing and not requiring any kind of intervention. He had full neurologic evaluation with Dr. Mendez. She thought that some of his problems may havebeen related to B12 deficiency and subsequent neuropathy. His latest B12 level was normal. He was referred in his planning to see Dr. Ludwig in vascular surgery as some mild carotid Um obstructive disease but overall Um it is noted to be less than 50% bilaterally. Patient Active Problem List Diagnosis Code Diaphragmatic [...] E11.9 Subdural hematoma (HCC) S06.5XAA Fall W19.XXXA Current Outpatient Medications Medication Sig Dispense Refill [...] BREAKFAST OR OTHER MEDS) 90 Tablet 2 Docusate Sodium 100 MG Oral Capsule (Colace) Take 1 Capsule by mouth in the morning and 1 Capsule before bedtime. 10 Capsule 0 DULoxetine HCl 60 MG Oral Capsule Delayed [...] [Isosorbide Nitrate] Diarrhea, fatigue, myalgias Objective: BP 122/68 (BP Site: Left Arm, BP Position: Sitting, BP Cuff Size: Regular) | Pulse 70 | Temp 36 C(96.8 F) (Temporal Artery) | Resp 18 | Ht 1.854 m (6' 1") | Wt 84.8 kg (187 lb) | SpO2 98% | BMI 24.67 kg/m | BSA 2.09 m Physical Exam: CONST: alert, pleasant, no acute distress HEAD: normocephalic, atraumatic NECK: supple, soft, no adenopathy EARS: canals normal, TMs normal Eyes - PERRLA, EOM'I. He does not have any eye nystagmus OROPHARYNX: clear, no swelling or erythema, moist CV: regular rate and rhythm, grade 3/6 murmur murmur CHEST: clear to auscultation bilaterally, no rales or wheezing ABD: soft, non tender, non distended, no masses or hepatosplenomegaly EXT: no edema, no joint swelling or deformities, NEURO: AAOx3, no gross focal deficits, cerebellar signs normal, affect appropriate MENTAL STATUS: no evidence of thought disorder, no delusional thought, no evidence of paranoia, thought is non-tangential. ASSESSMENT/PLAN: Personal history of fall (Primary) - CT HEAD/BRAIN WO CONTRAST Look for a new intracerebral bleed. Not a lot we could do about it if we see a bleed except he would want to remain off of baby aspirin daily. Dr. Mendez had gotten the okay from Neurosurgery for him to go back on a baby aspirin but he was hesitant in really never started it. Diarrhea, unspecified type - BASIC METABOLIC PANEL; Future; Expected date: 02/12/2023 I recommended he use Imodium 1 tablet daily every day. If that does not improve his stool frequency, he could up to 2 a day. I really prefer him not to go higher than that. Malaise and fatigue-very much doubt heart failure but will look with a BNP - CBC WITH WBC DIFFERENTIAL; Future; Expected date: 02/12/2023-rule out anemia - BNP, NT-PRO; Future; Expected date: 02/12/2023-rule out heart failure Dyspnea, unspecified type - CBC WITH WBC DIFFERENTIAL; Future; Expected date: 02/12/2023 - BNP, NT-PRO; Future; Expected date: 02/12/2023 Dysphagia-this may be more of neurologic problem with coordination of the muscles of mastication and esophageal muscles. Still could be Um esophageal stenosis. Will schedule GI referral. He previously saw Tahira. Jonathan Lan MD documented in this encounter Nursing Notes * Tammy Hernandez CCMA - 02/12/2023 3:00 PM EST Parth Jett is a 87 year old male who presents today for Chief Complaint Patient presents with Hospital Follow-Up Hospital follow up for head wound, dizzy, confuse, mouth sore documented in this encounter Plan of Treatment Upcoming Encounters Date Type Department Care Team (Late st Contact Info) Description 02/28/2023 12:30 PM EST Office Visit Vascular Surgery, [facility] [address] [facility] [place] [address] Scot Ludwig MD [address] [place] [address] 03/20/2023 2:00 PM EST Nurse Only Ancillary Department, [facility] [address] [place] [address] [facility] [address], [place] [id number] 06/25/2023 2:00 PM EDT Office Visit [facility] [address] [place] [id number] Jonathan Lan MD [address] [place] [address] 07/05/2023 3:40 PM EDT [facility] [address] [facility] [place] [address] Riya Mendez MD [address] [place] [address] Pending Results Name Type Priority Associated Diagnoses Date /Time CBC WITH WBC DIFFERENTIAL Lab Routine Malaise and fatigue Dyspnea, unspecified type 02/12/2023 4:22 PM EST BNP, NT-PRO Lab Routine Malaise and fatigue Dyspnea, unspecified type 02/12/2023 4:22 PM EST BASIC METABOLIC PANEL Lab Routine Diarrhea, unspecified type 02/12/2023 4:22 PM EST Scheduled Orders Name Type Priority Associated Diagnoses Orde r Schedule CT HEAD/BRAIN WO CONTRAST Medical Imaging Routine Personal history of fall Ordered: 02/12/2023 CBC WITH WBC DIFFERENTIAL Lab Routine Malaise and fatigue Dyspnea, unspecified type Expected: 02/12/2023 (Approximate), Expires: 02/13/2024 BNP, NT-PRO Lab Routine Malaise and fatigue Dyspnea, unspecified type Expected: 02/12/2023 (Approximate), Expires: 02/12/2024 BASIC METABOLIC PANEL Lab Routine Diarrhea, unspecified type Expected: 02/12/2023 (Approximate), Expires: 02/12/2024 Scheduled Procedures Name Priority Associated Diagnoses Date/Ti me COLONOSCOPY FLEXIBLE PROXIMA L DIAGNOSTIC Recall Inflammatory polyps of colon with rectal bleeding Diverticulosis COLONOSCOPY FLEXIBLE PROXIMA L DIAGNOSTIC Recall H/O colonoscopy Scheduled Referrals Name Type Priority Associated Diagnoses Order Schedule ADULT GASTROENTEROLOGY REFERRAL OP Referral Within 10 days (routine) Diarrhea, unspecified type Dysphagia, unspecified type Ordered: 02/12/2023 Health Maintenance Due Date Last Done Comments Zoster Vaccines (1 of 2) 1986 Hepatitis B (1 of 3 - Risk 3-dose series) 1996 Diabetic Eye Exam 11/25/2021 11/25/2020, , 05/25/2016, Additional history exists CKD PHOS USE SMARTSET 34055 09/20/202209/05, 01/18/2021, 06/23/2019, Additional history exists COVID-19 Vaccine (2022- season) 2022 01/18/2021, 06/05/2020, 05/13/2020, Additional history exists HbA1c 12/27/2022 06/26/2022, 11/0 07/2019, 12/18/2018, Additional history exists Depression Screening 03/13/2023 03/13/2022 Diabetic Foot Exam 03/13/2023 03/13/2022, 1 , 11/27/2014, Additional history exists Albumin/Creatinine Ratio 06/27/2023 023, 06/10/2018, 06/26/2017, Additional history exists TSH 06/27/2023 06/26/2022, 09/05, 10/25/2020, Additional history exists CKD HGB USE SMARTSET 81422 12/14/202312/13, 12/06/2022, 12/05/2022, Additional history exists DTaP,Tdap,and [...] as of this encounter Visit Diagnoses Diagnosis Personal history of fall- Primary Diarrhea, unspecified type Malaise and fatigue Other malaise and fatigue Dyspnea, unspecified type Dysphagia, unspecified type documented in this encounter Advance [...] the patient have Health Care Power of Auto Body Builder Apprentice? No Care Teams Lab Manager Relationship Specialty Start Date End Date Jonathan Lan MD [address] [place] [address] PCP - General Family Medicine 08/15/12 documented as of this encounter
[2023-07-21 07:18] VITALS: RESP 19; O2SAT 95
--- NOTE | 2023-07-21 12:53 | Discharge Summary ---
Date of Service July 21, 2023 Admission HPI Per Admitting Provider History obtained from patient, family, and records. Limited history from patient secondary to lethargy and confusion. Medical history significant for hypertension, orthostatic hypotension as per records, valvular heart disease (moderate , mild TR, TTE 2022), cerebellar hemorrhage status post surgery, history traumatic subdural hematoma, ABDI on CPAP, history of adrenal insufficiency as per records, DM2 on oral medications, hypothyroidism, chronic anemia (baseline hemoglobin of 12), GERD, radiation proctitis as per records, prostate cancer status post radiation, BPH, chronic back pain, mild cognitive impairment as per records, past tobacco abuse. Last confinement [facility] November 2022 for traumatic subdural hematoma secondary to recurrent falls. No operative intervention. Patient started by PCP on Lyrica 3 weeks ago for chronic right-sided sciatica pain. Patient noted to be more confused than usual and sleeping a lot since medication started a few weeks ago as per . Falling more than usual. May have been passing out as per . No witnessed seizures. No chest pain, no SOB, no abdominal pain. Usual loose stools nonbloody. EMS called to patient's home today. Heart rate noted to be 40s as per EMS report. Admission Exam Per Admitting Provider See H&P Principal Diagnosis Falls and weakness and poor coordination due to Lyrica as well as bradycardia due to beta-kat Discharge Exam Constitutional: Alert, oriented, no complaints HEENT: Mucous membranes moist. Lungs: Clear to auscultation, decreased, no wheezes rales or rhonchi CV: S1-S2, regular Abdomen: Soft, nontender, nondistended Extremities: No significant edema Neuro: No focal deficits Psych: Cooperative, normal mood Discharge Data Allergies Allergy/AdvReac Type Severity Reaction Status Date / Time clindamycin Allergy Unknown unknown--per Verified 07/19/23 20:17 [facility] record amoxicillin AdvReac Severe JAUNDICE Verified 07/19/23 20:17 clavulanic acid AdvReac Severe JAUNDICE Verified 07/19/23 20:17 dicyclomine [From Bentyl] AdvReac Intermediate dizziness, Verified 07/19/23 20:17 light headedness isosorbide AdvReac Intermediate PAIN IN Verified 07/19/23 20:17 LIMBS DIARRHEA oxycodone AdvReac Intermediate Confusion Verified 07/19/23 20:17 pregabalin [From Lyrica] AdvReac Intermediate Confusion Verified 07/19/23 21:13 Consultations 07/19/23 19:01 ED Decision to Admit Stat Ordered Studies 07/19/23 17:54 CT cervical spine wo con Stat 07/19/23 17:55 CT head/brain wo con Stat Reviewed imaging, laboratory and diagnostic studies. Pertinent findings as below. Head CT was unremarkable for acute findings. Echocardiogram showed normal ejection fraction 6065%. Severe left ventricular hypertrophy. Calcific aortic valve cusp but only mild stenosis no evidence of pulm hypertension EKG showed sinus rhythm Hospital Course (1) Recurrent falls: (2) Adverse effects of medication: (3) Drug-induced bradycardia: (4) HTN (hypertension): (5) Alteration in appetite: Plan Patient presented to the hospital with recurrent falls. Noted to have some bradycardia and question adverse reaction to his Lyrica. Patient was admitted to the hospital. Lyrica was held. His metoprolol dosing was also held. To the course of his hospitalization his symptoms significantly improved he reported no symptoms of dizziness. He is up and ambulating without difficulty. His bradycardia resolved with holding of his Toprol XL. In fact he was started to have some brief bursts of tachycardia. Also his blood pressure was increasing a little bit as well. He was started on a lower dose of Toprol-XL. Continue to hold the Lyrica. Is valid by therapies. Echocardiogram was performed with results as mentioned above. There is no arrhythmias noted on telemetry monitoring. Suspect patient's symptoms are related to adverse medication effects. He will be discharged home with outpatient follow-up with his providers. To help coordinate potentially some home health evaluation and therapies and recommend remaining off the Lyrica at this time. Home Health Attestation I certify that this patient is under my care and that I, or a physicians nutrition assistant working with me, had a face to-face encounter that meets the home health [id number] encounter requirements with this patient. The encounter with the patient was in whole, or in part, for the following medical condition, which is the primary reason for home health care (list medical condition): I certify that, based on my findings, the following services are medically necessary home health services: My clinical findings support the need for the above services because: Further, I certify that my clinical findings support that this patient is homebound (i.e. absences from home require considerable and taxing effort and are for medical reasons or religion services or infrequently or of short duration when for other reasons) because: Certification for Home Health Services: Based on the above findings, I certify that this patient is confined to the home and needs intermittent mcc care, physical therapy and/or speech therapy or continues to need occupational therapy. The patient is under my care, and I have initiated the establishment of the plan of care. This patient will be followed by a physician who will periodically review the plan of care. Total Time Total Time Spent Total Time Spent (In Minutes): 34 Discharge Plan Discharge Items Patient Disposition: Home - Home Health Services Reason For Visit: FALL Discharge Diagnosis: Fall and dizziness due to effects of Lyrica Activity: Resume your previous activity Activity Comment: Recommend using walker even throughout the house Non-emergency contact: Primary Care Provider Call non-emergency contact if: you have any medication questions and your pain is concerning for you Follow-up/Referrals: Jonathan Lan MD [Primary Care Provider] - Diet: Heart Healthy Addtl Attending Provider Instructions: Stop Lyrica recommend using walker at all times. Recommend taking your time changing positions especially when going from lying down to standing up Pending Studies at Discharge: No Stand-Alone Forms: My [facility] [employer], Smoking Cessation Medications and DC Order Prescriptions: New metoprolol succinate [Toprol XL] 25 mg tablet extended release 24 hr 12.5 mg PO DAILY Qty: 30 0RF Continued finasteride 5 mg tablet 5 mg PO QAM multivitamin Tablet 1 tab PO QAM levothyroxine 75 mcg Tablet 75 mcg PO QAM tamsulosin 0.4 mg Capsule 0.4 mg PO QAM nitroglycerin 0.4 mg Tablet, Sublingual 0.4 mg sublingual UD PRN (Reason: Angina) cholecalciferol (vitamin D3) [Vitamin D3] 1,000 unit Tablet 1,000 unit PO QPM omeprazole 20 mg Tablet,Delayed Release (Dr/Ec) 20 mg PO QAM acetaminophen 500 mg Tablet 500 mg PO Q6H PRN (Reason: Pain) rosuvastatin 10 mg Tablet 10 mg PO QDL duloxetine 60 mg Capsule, Delayed Rel Sprinkle 60 mg PO QAM B12 Active 1,000 mcg 1,000 mcg PO DAILY meclizine 25 mg tablet 25 mg PO TID PRN (Reason: DIZZY) Discontinued metoprolol succinate 50 mg tablet extended release 24 hr 50 mg PO QAM Rx Instructions: confirmed he is taking 50 mg during medrec NR Admission Data Admit Date/Time: 07/19/23 21:09 Attending Provider: José Luis Salas Admit Provider: Gamal Gonzalez Primary Care Provider: Jonathan Lan Other Providers: Gamal Gonzalez
[2023-07-21] MEDS: METOPROLOL SUCC 25MG EXT REL TAB PO ONE (13:08)
[2023-07-21 16:03] VITALS: BP 121/81; PULSE 91; TEMP 98.1
== END 2023-07-21 18:27 | disposition home health service (06) ==
LOC: ED 17:37 → 2S 17:37 → EDINP 17:37 → 2S 21:57

== ENCOUNTER 2024-01-08 16:18 | Inpatient (IN) ==
--- NOTE | 2024-01-08 16:44 | Emergency Department Note ---
Impression & Plan Heart block AV third degree, Syncope, cardiogenic ED Provider Note NAME: SHANTAL DIAZ AGE: 88 SEX: M : 1935 ARRIVES VIA: Ambulance INFORMANT: [Patient][, ] ED PROVIDER(S): [Agusto Ordaz MD] CHIEF COMPLAINT: Generalized weakness HPI: This is an 88-year-old male presenting for generalized weakness. Patient states that he has been weak for the past 1 week. Notes that he has bilateral leg weakness and cannot significantly stand as normal. He states he did have a syncopal episode yesterday. Unsure what happened with this. He notes no chest pain or short of breath. He was presenting confused on arrival. ROS: See above HPI for pertinent positives & negatives. A total of [10] systems reviewed and were otherwise negative. PAST MEDICAL HISTORY: [See Below] PAST SURGICAL HISTORY: [See Below] FAMILY HISTORY: [See Below] SOCIAL HISTORY: [See Below] HOME MEDICATIONS: [See Below] ALLERGIES: [See Below] VITALS: See Below PHYSICAL EXAMINATION: General: resting comfortably in no acute distress Head: Normocephalic and atraumatic Eyes: Normal inspection, extraocular muscles intact Ear, nose, throat: Normal external exam Neck: Normal range of motion Respiratory: lungs clear to auscultation bilaterally Cardiovascular: Bradycardic rate/rhythm, no murmur GI: soft, nontender, no guarding or rebound Extremities: nontender, moves all extremities Neuro: The patient awake and alert, appropriately conversive, no focal deficits, symmetric faces Skin: Warm, dry, and intact MEDICAL DECISION MAKING: This is a 88-year-old male presenting for generalized weakness. Patient has been weak for over 1 week. His heart rate fluctuating 35 and 55. EKG appears to show a likely third-degree AV block. -ECG independently interpreted by me with third-degree AV block at a rate of 45, left branch block [normal QTc], [no ST segment elevations consistent with STEMI criteria] -While resting, patient has no current symptoms. He is not currently hypotensive, actually certainly hypertensive. Mentating at his baseline as per family. -Chest Xray independently interpreted by me showing no pneumothorax, focal opacity, or pleural effusions. -Bloodwork is reviewed showing no significant leukocytosis, anemia, electrolyte or creatinine abnormality. Troponin is elevated at 28.5. Unclear patient had a previous cardiac event because he has 30 AV block. -Will add on Lyme testing at this time. -Discussed with Dr. Fang, cardiology, who states patient at this time does not require emergent transvenous pacemaker -Will admit for further workup and eventual pacemaker placement Differential diagnosis: Mobitz type II block, third-degree AV block, Lyme carditis, ACS Independent History obtained from: and son Diagnostics interpreted by me: ECG: See above Cardiac Monitoring: An order was placed for continuous cardiac monitoring. The monitor shows a rate of 47 with A-V dissociation. Critical Care Note: I have personally spent 45 minutes of critical care time in the direct management of this patient. This includes bedside care, interpretation of diagnostic studies, and testing, discussion with consultants, patient, and family members, and other required patient management activities. This 45 minutes is in excess of all separately billable procedures. Past Med/Surg History Problem List (Updated 01/08/24 @ 18:10 by Agusto Ordaz MD) Syncope, cardiogenic (Acute) Heart block AV third degree (Acute) Alteration in appetite Drug-induced bradycardia Adverse effects of medication Left bundle branch block (LBBB) (Acute) Recurrent falls (Acute) Dysphagia Abnormal LFTs (Acute 12/26/12) Bronchitis (Acute) Elevated liver function tests (Acute) HTN (hypertension) (Acute 12/26/12) Hyperbilirubinemia (Acute) Jaundice (Acute) Post-operative state (Acute) Post-operative state Encounter for pre-operative examination Dysphagia Hematochezia Dysphagia Lumbar stenosis with neurogenic claudication Medical History History of shingles over 10 yrs ago History of prostate cancer RADIATION ONLY 2010 Dysphagia Anxiety and depression Spinal stenosis Osteoarthritis Degenerative disc disease Chronic back pain Chronic kidney disease, stage 3 follows with [facility] GERD (gastroesophageal reflux disease) History of esophageal dilatation Hypothyroidism Radiation proctitis Hearing deficit Stroke 2011--no deficits, no neurologist Hyperlipidemia Cardiac murmur FOLLOWS WITH DR. 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 History of anesthesia reaction woke up paranoid and last for 3 days after both brain surgeries History of total left hip replacement History of total right hip replacement History of prostate biopsy History of colonoscopy History of esophagogastroduodenoscopy (EGD) History of appendectomy History of phacoemulsification of cataract of both eyes with intraocular lens implantation bilat History of tooth extraction all teeth Family History Mother Family history of diabetes mellitus Other No family history of adverse response to anesthesia Social History Smoking Status: Never smoker Tobacco Type: Cigarettes Second Hand Exposure: No; Do You Dip or Chew Tobacco: No; Hx Alcohol Use: No Hx Substance Use: No Preferred Language: Faroese Communication Ability: Effective Site Leader Required: No Beliefs That Will Affect Care: None Current Living Situation: Spouse Feels Safe at Home: Yes Assistive Devices: Cane and Walker Allergies Allergies Allergy/AdvReac Type Severity Reaction Status Date / Time clindamycin Allergy Unknown unknown--per Verified 07/19/23 20:17 [facility] amoxicillin AdvReac Severe JAUNDICE Verified 07/19/23 20:17 clavulanic acid AdvReac Severe JAUNDICE Verified 07/19/23 20:17 dicyclomine [From Bentyl] AdvReac Intermediate dizziness, Verified 07/19/23 20:17 light headedness isosorbide AdvReac Intermediate PAIN IN Verified 07/19/23 20:17 LIMBS DIARRHEA oxycodone AdvReac Intermediate Confusion Verified 07/19/23 20:17 pregabalin [From Lyrica] AdvReac Intermediate Confusion Verified 07/19/23 21:13 Home Meds Home Medications Medication Instructions Recorded Confirmed cholecalciferol (vitamin D3) 25 1,000 unit PO QPM 08/21/18 07/19/23 mcg (1,000 unit) tablet (Vitamin D3) levothyroxine 75 mcg tablet 75 mcg PO QAM 08/21/18 07/19/23 multivitamin 1 tab PO QAM 08/21/18 07/19/23 nitroglycerin 0.4 mg sublingual 0.4 mg sublingual UD PRN Angina 08/21/18 07/19/23 tablet omeprazole 20 mg tablet,delayed 20 mg PO QAM 08/21/18 07/19/23 release tamsulosin 0.4 mg capsule 0.4 mg PO QAM 08/21/18 07/19/23 finasteride 5 mg tablet 5 mg PO QAM 10/02/19 07/19/23 acetaminophen 500 mg tablet 500 mg PO Q6H PRN Pain 02/23/22 07/19/23 duloxetine 60 mg capsule,delayed 60 mg PO QAM 02/23/22 07/19/23 release sprinkle rosuvastatin 10 mg tablet 10 mg PO QDL 02/23/22 07/19/23 metoprolol succinate 50 mg 50 mg PO QAM 12/02/22 07/19/23 tablet,extended release 24 hr B12 Active 1,000 mcg PO DAILY 07/19/23 07/19/23 meclizine 25 mg tablet 25 mg PO TID PRN DIZZY 07/19/23 07/19/23 Previous Rx's Medication Instructions Recorded metoprolol succinate 25 mg 12.5 mg (1/2 x 25 mg) PO DAILY #30 07/21/23 tablet,extended release 24 hr tabs (Toprol XL) Results & Data (ED) Vital Signs Vital Signs - 24 hr 01/08/24 16:24 01/08/24 16:27 01/08/24 16:27 Temperature Temperature Source Oral Pulse Rate 55 L Pulse Rate [Apical] Pulse Rate from SpO2 Sensor Respiratory Rate 16 Respiratory Effort / Characteristics SOB on Exertion Blood Pressure 181/79 H Blood Pressure [Left Arm] Blood Pressure Mean 113 Blood Pressure Mean [Left Arm] Pulse Oximetry 94 Oxygen Delivery Method Room Air Room Air Sepsis Recent Fever Within 48 Hours No Sepsis New/Unexplained Change in Mental Status N/A Sepsis Action Taken by Nursing No Action Required 01/08/24 16:29 01/08/24 16:30 01/08/24 16:30 Temperature 36.8 C Temperature Source Oral Pulse Rate 45 L Pulse Rate [Apical] Pulse Rate from SpO2 Sensor 45 L Respiratory Rate 19 Respiratory Effort / Characteristics Blood Pressure Blood Pressure [Left Arm] Blood Pressure Mean Blood Pressure Mean [Left Arm] Pulse Oximetry 94 95 Oxygen Delivery Method Room Air Sepsis Recent Fever Within 48 Hours Sepsis New/Unexplained Change in Mental Status Sepsis Action Taken by Nursing 01/08/24 16:37 01/08/24 16:38 01/08/24 16:39 Temperature Temperature Source Pulse Rate 45 L 45 L Pulse Rate [Apical] Pulse Rate from SpO2 Sensor Respiratory Rate 21 Respiratory Effort / Characteristics Blood Pressure 173/91 H Blood Pressure [Left Arm] Blood Pressure Mean 123 Blood Pressure Mean [Left Arm] Pulse Oximetry 91 Oxygen Delivery Method Sepsis Recent Fever Within 48 Hours Sepsis New/Unexplained Change in Mental Status Sepsis Action Taken by Nursing 01/08/24 16:48 01/08/24 16:51 01/08/24 17:08 Temperature Temperature Source Pulse Rate 45 L 45 L Pulse Rate [Apical] 47 L Pulse Rate from SpO2 Sensor Respiratory Rate 13 15 18 Respiratory Effort / Characteristics Blood Pressure 166/80 H Blood Pressure [Left Arm] 190/72 H Blood Pressure Mean 108 Blood Pressure Mean [Left Arm] 111 Pulse Oximetry 92 92 95 Oxygen Delivery Method Room Air Sepsis Recent Fever Within 48 Hours Sepsis New/Unexplained Change in Mental Status Sepsis Action Taken by Nursing 01/08/24 17:37 Temperature Temperature Source Pulse Rate Pulse Rate [Apical] 45 L Pulse Rate from SpO2 Sensor Respiratory Rate 14 Respiratory Effort / Characteristics Blood Pressure Blood Pressure [Left Arm] Blood Pressure Mean Blood Pressure Mean [Left Arm] Pulse Oximetry 95 Oxygen Delivery Method Room Air Sepsis Recent Fever Within 48 Hours Sepsis New/Unexplained Change in Mental Status Sepsis Action Taken by Nursing Laboratory Data 01/08/24 16:34 01/08/24 16:34 Lab Results 01/08/24 Range/Units 16:34 WBC 5.09 (4.8-10.8) K/ul RBC 3.89 L (4.70-6.10) M/uL Hgb 12.0 L (14.0-18.0) g/dl Hct 34.8 L (42.0-52.0) % MCV 89.5 (80.0-100.0) fL MCH 30.8 (25.0-34.0) pg MCHC 34.5 (32.0-36.0) g/dL RDW Std Deviation 41.7 (36.4-46.3) fL RDW Coeff of Darrick 12.9 (11.5-14.5) % Plt Count 140 (130-400) K/uL MPV 11.6 (9.4-12.4) fL Immature Gran % (Auto) 0.2 % Neut % (Auto) 63.1 % Lymph % (Auto) 18.9 % [place] % (Auto) 14.1 % Eos % (Auto) 2.9 % Baso % (Auto) 0.8 % Neut # (Auto) 3.21 (1.40-6.50) K/uL Lymph # (Auto) 0.96 L (1.20-3.40) K/uL [place] # (Auto) 0.72 H (0.11-0.59) K/uL Eos # (Auto) 0.15 (0.00-0.50) K/uL Baso # (Auto) 0.04 (0.00-0.20) K/uL Immature Gran # (Auto) 0.01 (0.01-0.20) K/uL Sodium 135 L (136-145) mmol/L Potassium 4.1 (3.5-5.1) mmol/L Chloride 102 (98-107) mmol/L Carbon Dioxide 27 (21-32) mmol/L Anion Gap 6 (3-11) BUN 13 (6-23) mg/dl Creatinine 1.11 (0.6-1.4) mg/dl Est Cr Clr Drug Dosing 53.0 ml/min eGFR 64.27 BUN/Creatinine Ratio 11.7 (10-20) Glucose 96 (70-99(Fasting)) mg/dl Calcium 8.9 (8.6-10.3) mg/dl Total Bilirubin 0.8 (0.2-1.0) mg/dl AST 19 (13-39) U/L ALT 13 (7-52) U/L Alkaline Phosphatase 78 (34-104) U/L Troponin I High Sens 28.5 H (0-20) pg/ml Total Protein 7.2 (6.0-8.3) gm/dl Albumin 3.7 (3.4-5.0) gm/dl Globulin 3.5 (2.5-4.0) gm/dl Albumin/Globulin Ratio 1.1 (0.9-2) Lipase 13 (11-82) U/L Imaging Data Radiologist's Impression: Chest X-Ray 01/08/24 16:27 EXAM: X-ray chest one-view portable CLINICAL HISTORY: Cough PRIORS: None TECHNIQUE: PA and lateral views chest FINDINGS: The chest is well-expanded. Diffuse bilateral interstitial prominence noted. No confluent opacification. Heart size is normal. No pneumothorax. Trachea is patent. Osseous structures demonstrate no acute abnormality. No radiopaque foreign body. IMPRESSION: No plain film evidence of an acute cardiopulmonary process. Electronically signed by Galina Brooks 01-08-2024 4:58 PM Discharge Plan Visit Data Chief Complaint: Cardiac Assessment Stated Complaint: CARDIAC ASSESSMENT ED Provider: Agusto Ordaz Discharge Problem: Heart block AV third degree, Syncope, cardiogenic Forms Stand Alone Forms: My [facility] Prescriptions Prescriptions: No Action finasteride 5 mg tablet 5 mg PO QAM multivitamin Tablet 1 tab PO QAM levothyroxine 75 mcg Tablet 75 mcg PO QAM tamsulosin 0.4 mg Capsule 0.4 mg PO QAM nitroglycerin 0.4 mg Tablet, Sublingual 0.4 mg sublingual UD PRN (Reason: Angina) cholecalciferol (vitamin D3) [Vitamin D3] 1,000 unit Tablet 1,000 unit PO QPM omeprazole 20 mg Tablet,Delayed Release (Dr/Ec) 20 mg PO QAM acetaminophen 500 mg Tablet 500 mg PO Q6H PRN (Reason: Pain) rosuvastatin 10 mg Tablet 10 mg PO QDL duloxetine 60 mg Capsule, Delayed Rel Sprinkle 60 mg PO QAM metoprolol succinate 50 mg tablet extended release 24 hr 50 mg PO QAM Rx Instructions: confirmed he is taking 50 mg during medrec NR B12 Active 1,000 mcg 1,000 mcg PO DAILY meclizine 25 mg tablet 25 mg PO TID PRN (Reason: DIZZY) metoprolol succinate [Toprol XL] 25 mg tablet extended release 24 hr 12.5 mg PO DAILY Qty: 30 0RF Referrals Referrals: Jonathan Lan MD [Primary Care Provider] -
--- NOTE | 2024-01-08 16:59 | XRay Report ---
EXAM: X-ray chest one-view portable CLINICAL HISTORY: Cough PRIORS: None TECHNIQUE: PA and lateral views chest FINDINGS: The chest is well-expanded. Diffuse bilateral interstitial prominence noted. No confluent opacification. Heart size is normal. No pneumothorax. Trachea is patent. Osseous structures demonstrate no acute abnormality. No radiopaque foreign body. IMPRESSION: No plain film evidence of an acute cardiopulmonary process. Electronically signed by Galina Brooks 01-08-2024 4:58 PM
[2024-01-08 17:08] LABS: Albumin Globulin Ratio 1.1 (0.9-2); Albumin Level 3.7 gm/dl (3.4-5.0); BUN Creatinine Ratio 11.7 (10-20); Basophils # (auto) 0.04 K/uL (0.00-0.20); Basophils % (auto) 0.8 %; Bilirubin,Total 0.8 mg/dl (0.2-1.0); Calcium 8.9 mg/dl (8.6-10.3); Eosinophils # (auto) 0.15 K/uL (0.00-0.50); Eosinophils % (auto) 2.9 %; Globulin 3.5 gm/dl (2.5-4.0); Hematocrit (blood only) 34.8 % (42.0-52.0); Immature Granulocytes # (auto) 0.01 K/uL (0.01-0.20); Immature Granulocytes % (auto) 0.2 %; Lymphocytes # (auto) 0.96 K/uL (1.20-3.40); Lymphocytes % (auto) 18.9 %; Mean Corpuscular Hemoglobin 30.8 pg (25.0-34.0); Mean Corpuscular Hgb Conc 34.5 g/dL (32.0-36.0); Mean Corpuscular Volume 89.5 fL (80.0-100.0); Mean Platelet Volume 11.6 fL (9.4-12.4); Monocytes # (auto) 0.72 K/uL (0.11-0.59); Monocytes % (auto) 14.1 %; Neutrophils # (auto) 3.21 K/uL (1.40-6.50); Neutrophils % (auto) 63.1 %; Platelet Count 140 K/uL (130-400); Potassium 4.1 mmol/L (3.5-5.1); RDW Coefficient of Variation 12.9 % (11.5-14.5); RDW Standard Deviation 41.7 fL (36.4-46.3); Red Blood Count 3.89 M/uL (4.70-6.10); Total Protein 7.2 gm/dl (6.0-8.3); White Blood Count 5.09 K/ul (4.8-10.8)
[2024-01-08 17:14] LABS: Troponin I High Sensitivity 28.5 pg/ml (0-20)
--- NOTE | 2024-01-08 17:37 | History & Physical Report ---
<Statement entered by José Luis Salas DO - 01/09/24 07:38> I have seen and examined the patient and have discussed the case with the provider above. I have reviewed the advanced practitioner's documentation, and I agree with, and take responsibility for that plan of care. Patient seen and examined in the emergency department on the day of admission. Family at bedside. Patient denies any current chest pain. No shortness of breath. Has been feeling leg as though he has been generally deteriorating since his hospitalization in July Physical exam: CV: S1-S2, bradycardia Diagnostic reviewed Reviewed EKGs personally, consistent with third-degree heart block Discussed plan of care as outlined below by MATTY Date of Service January 08, 2024 Assessment & Plan (1) Heart block AV third degree: Plan: This is an 88yo M with a PMH of HTN, orthostatic hypotension as per records, valvular heart disease (moderate , mild TR, TTE 2022), cerebellar hemorrhage status post surgery, history traumatic subdural hematoma, ABDI on CPAP, history of adrenal insufficiency as per records, DM II on oral medications, hypothyroidism, chronic anemia (baseline hemoglobin of 12), GERD, radiation proctitis as per records, prostate cancer status post radiation, BPH, chronic back pain, mild cognitive impairment and other medical problems listed below who presents with weakness. Third degree heart block EKG with HR 47 bpm with AV dissociation External pacers noted when examined in ED Appears alert, comfortable with HR in mid-40s. BP 161/94 Hold Toprol Discussed with Dr. Barbour for cardiology - recommends monitoring in ICU, 2D echo, PRN dopamine as needed, NPO for potential pacemaker in AM TSH WNL, K >4, Mg 1.6 -> replacing, lyme screen negative Discussed with Dr. Chin who accepts to ICU for overnight management (2) Recurrent falls: Plan: Weakness 2/2 above Fall precautions (3) Dysphagia: Plan: Schatzki ring, empiric dilation in 2020 without relief. On a soft, slippery diet per February GI note (4) HTN (hypertension): Plan: Holding Toprol given AV kun dysfunction as above (5) Anxiety and depression: Plan: Stable. Continue duloxetine (6) Chronic kidney disease, stage 3: Plan: Cr 1.1, at baseline Monitor with daily BMP (7) Hypothyroidism: Plan: Continue levothyroxine (8) Prostate cancer: (9) BPH (benign prostatic hyperplasia): Plan: Continue finasteride, tamsulosin, bladder scan and straight cath PRN Follows with [facility] (10) Sleep apnea: Plan: CPAP HS DVT Ppx: SCDs Code status: FULL PCP: Riky Dispo: Admitted to ICU Patient seen in collaboration with Dr. Salas. Please see addendum. I spent a total of 75 minutes coordinating, documenting, and providing care for this patient excluding time spent in the performance of separately billed services. History of Present Illness Chief Complaint: syncopal event Primary Care Provider: Jonathan Lan MD This is an 88yo M with a PMH of HTN, orthostatic hypotension as per records, valvular heart disease (moderate , mild TR, TTE 2022), cerebellar hemorrhage status post surgery, history traumatic subdural hematoma, ABDI on CPAP, history of adrenal insufficiency as per records, DM II on oral medications, hypothyroidism, chronic anemia (baseline hemoglobin of 12), GERD, radiation proctitis as per records, prostate cancer status post radiation, BPH, chronic back pain, mild cognitive impairment and other medical problems listed below who presents to ED following syncopal episode yesterday. Was admitted in July 2023 with concern for medication induced bradycardia. Lyrica had recently been started and was discontinued. Toprol 50mg was initially held but due to bursts of tachycardia, patient was resumed on lower dose of Toprol 25mg at hime of discharge. Echo at that time showed EF 60-65%, severe concentric LVH, mild aortic stenosis, mild TR. History provided by at bedside due to patient's cognitive impairment. She states he was more weak for the past week. No witnessed falls or syncopal events. No CP. Seems to be SOB with exertion. Has been taking all medications including beta kat. HR has been low at home for past week, per . Patient suzanne CP. Unable to obtain full ROS. Allergies Allergy/AdvReac Type Severity Reaction Status Date / Time clindamycin Allergy Unknown unknown--per Verified 01/08/24 20:31 [facility] amoxicillin AdvReac Severe JAUNDICE Verified 01/08/24 20:31 clavulanic acid AdvReac Severe JAUNDICE Verified 01/08/24 20:31 dicyclomine [From Bentyl] AdvReac Intermediate dizziness, Verified 12/03/24 20:31 light headedness isosorbide AdvReac Intermediate PAIN IN Verified 01/08/24 20:31 LIMBS DIARRHEA oxycodone AdvReac Intermediate Confusion Verified 01/08/24 20:31 pregabalin [From Lyrica] AdvReac Intermediate Confusion Verified 01/08/24 20:31 Home Medications Medication Instructions Recorded Confirmed Type cholecalciferol (vitamin D3) 25 1,000 unit PO QPM 08/21/18 01/08/24 History mcg (1,000 unit) tablet (Vitamin D3) levothyroxine 75 mcg tablet 75 mcg PO QAM 08/21/18 01/08/24 History multivitamin 1 tab PO QAM 08/21/18 01/08/24 History nitroglycerin 0.4 mg sublingual 0.4 mg sublingual UD PRN Angina 08/21/18 01/08/24 History tablet omeprazole 20 mg tablet,delayed 20 mg PO QAM 08/21/18 01/08/24 History release tamsulosin 0.4 mg capsule 0.4 mg PO QAM 08/21/18 01/08/24 History finasteride 5 mg tablet 5 mg PO QAM 10/02/19 01/08/24 History acetaminophen 500 mg tablet 500 mg PO BID 02/23/22 01/08/24 History duloxetine 60 mg capsule,delayed 60 mg PO QAM 02/23/22 01/08/24 History release sprinkle rosuvastatin 10 mg tablet 10 mg PO QPM 02/23/22 01/08/24 History B12 Active 1,000 mcg PO DAILY 07/19/23 01/08/24 History meclizine 25 mg tablet 25 mg PO BID PRN DIZZY 07/19/23 01/08/24 History metoprolol succinate 25 mg 25 mg PO DAILY 01/08/24 01/08/24 History tablet,extended release 24 hr (Toprol XL) Past Med/Surg History Problem List (Updated 01/08/24 @ 20:42 by Estefany Ta PA-C) Heart block AV third degree (Acute) Drug-induced bradycardia Adverse effects of medication Left bundle branch block (LBBB) (Acute) Recurrent falls (Acute) Dysphagia Abnormal LFTs (Acute 12/26/12) Bronchitis (Acute) Elevated liver function tests (Acute) HTN (hypertension) (Acute 12/26/12) Hyperbilirubinemia (Acute) Post-operative state (Acute) Post-operative state Dysphagia Hematochezia Lumbar stenosis with neurogenic claudication Medical History (Updated 01/08/24 @ 20:42 by Estefany Ta PA-C) BPH (benign prostatic hyperplasia) History of shingles over 10 yrs ago History of prostate cancer RADIATION ONLY 2010 Dysphagia Anxiety and depression Spinal stenosis Osteoarthritis Degenerative disc disease Chronic back pain Chronic kidney disease, stage 3 follows with [facility] GERD (gastroesophageal reflux disease) History of esophageal dilatation Hypothyroidism Radiation proctitis Hearing deficit Stroke 2011--no deficits, no neurologist Hyperlipidemia Cardiac murmur FOLLOWS WITH DR. HITCHCOCK Sleep apnea cpap Surgical History History of craniotomy X 2 (AT [facility])---d/t hemorrhagic stroke and for a pseudomeningocele repair History of anesthesia reaction woke up paranoid and last for 3 days after both brain surgeries History of total left hip replacement History of total right hip replacement History of prostate biopsy History of colonoscopy History of esophagogastroduodenoscopy (EGD) History of appendectomy History of phacoemulsification of cataract of both eyes with intraocular lens implantation bilat History of tooth extraction all teeth Family History Mother Family history of diabetes mellitus Other No family history of adverse response to anesthesia Social History Smoking Status: Never smoker Tobacco Type: Cigarettes Second Hand Exposure: No; Do You Dip or Chew Tobacco: No; Hx Alcohol Use: No Hx Substance Use: No Preferred Language: Maori Communication Ability: Effective Distribution Sales Representative Required: No Beliefs That Will Affect Care: None Current Living Situation: Spouse Feels Safe at Home: Yes Assistive Devices: Cane and Walker Review of Systems Review of Systems: At least ten systems reviewed and negative except as noted in the HPI. Physical Exam Physical Exam: General Appearance: WD/WN, vitals as above, NAD, sitting up in bed, pleasantly confused Head: normocephalic, atraumatic Eyes: normal inspection, PERRL, conjunctivae normal, anicteric sclerae ENT: external ear and nose normal, oropharynx normal Neck: normal visual inspection, trachea midline, no thyromegaly Respiratory: normal respiratory effort, lungs clear to auscultation, no wheeze, rales, rhonchi. No accessory muscle use Cardiovascular: bradycardic rate, regular rhythm,normal peripheral pulses, no BLE edema. Vessels: no JVD Chest: normal inspection of chest Abdomen/GI: normal bowel sounds, soft, nontender, no hepatosplenomegaly Extremities/Musculoskeletal: no cyanosis or clubbing, extremities motor strength 5/5 Neurologic: PERRL, EOMI, accommodation nl, no face palsy, no dysarthria, CN's II-XI intact bilaterally and moves all extremities Psychiatric: A+Ox3, euthymic affect Skin: no rashes, normal color, warm/dry Results & Data Results & Data Vital Signs (Past 12 Hours) Vital Signs Temp Pulse Pulse Resp BP BP Pulse Ox 01/08/24 17:08 47 L 18 190/72 H 95 01/08/24 16:51 45 L 15 166/80 H 92 01/08/24 16:48 45 L 13 92 01/08/24 16:39 45 L 21 91 01/08/24 16:38 45 L 01/08/24 16:37 173/91 H 01/08/24 16:30 45 L 19 95 01/08/24 16:30 36.8 C 01/08/24 16:29 94 01/08/24 16:27 01/08/24 16:24 55 L 16 181/79 H 94 O2 Del Method 01/08/24 17:08 Room Air 01/08/24 16:51 01/08/24 16:48 01/08/24 16:39 01/08/24 16:38 01/08/24 16:37 01/08/24 16:30 01/08/24 16:30 01/08/24 16:29 Room Air 01/08/24 16:27 Room Air 01/08/24 16:24 Room Air Laboratory Results Short CBC 01/08/24 Range/Units 16:34 WBC 5.09 (4.8-10.8) K/ul Hgb 12.0 L (14.0-18.0) g/dl Hct 34.8 L (42.0-52.0) % Plt Count 140 (130-400) K/uL BMP 01/08/24 16:34 Sodium 135 L Potassium 4.1 Chloride 102 Carbon Dioxide 27 BUN 13 Creatinine 1.11 Glucose 96 Calcium 8.9 Liver Function 01/08/24 Range/Units 16:34 Total Bilirubin 0.8 (0.2-1.0) mg/dl AST 19 (13-39) U/L ALT 13 (7-52) U/L Alkaline Phosphatase 78 (34-104) U/L Albumin 3.7 (3.4-5.0) gm/dl Diagnostic Findings Chest X-Ray 01/08/24 16:27 EXAM: X-ray chest one-view portable CLINICAL HISTORY: Cough PRIORS: None TECHNIQUE: PA and lateral views chest FINDINGS: The chest is well-expanded. Diffuse bilateral interstitial prominence noted. No confluent opacification. Heart size is normal. No pneumothorax. Trachea is patent. Osseous structures demonstrate no acute abnormality. No radiopaque foreign body. IMPRESSION: No plain film evidence of an acute cardiopulmonary process. Electronically signed by Galina Brooks 01-08-2024 4:58 PM
[2024-01-08 19:01] LABS: Magnesium 1.6 mg/dl (1.7-2.4)
[2024-01-08 19:17] LABS: Thyroid Stimulating Hormone 1.506 uIu/ml (0.300-4.500)
[2024-01-08] MEDS: MAGNESIUM SULFATE / D5W 1 GM/100 ML BAG IV SCH (20:38)
[2024-01-08] MEDS: hydrALAZINE HCL 20 MG/ML VIAL IV STA (22:01)
[2024-01-08] MEDS: ACETAMINOPHEN 500 MG TAB PO SCH (22:04)
[2024-01-08] MEDS: ICU Protocol for HYPERglycemia SCH (22:05)
--- NOTE | 2024-01-08 22:29 | Critical Care Consultation ---
Date of Consultation January 08, 2024 Assessment & Plan (1) Heart block AV third degree: Impression: 88-year-old male with past medical history of HTN, aortic stenosis, cerebellar hemorrhage, traumatic subdural hematoma, ABDI, DM type II, hypothyroidism, GERD, prostate cancer, and cognitive impairment presented to the ICU with bradycardia with Mobitz type II heart block, currently with heart rate in the 40s. Neuro - Cognitive disorderpatient with past medical history of cerebellar hemorrhage and traumatic subdural hematoma. Per report appears to be stable at baseline. Monitor - Continue home med regimen Cardiac - Bradycardiapatient with symptomatic bradycardia and Reported syncopal episode at home. EKG consistent with Mobitz type II. Patient previously on metoprolol , Currently on hold - Cardiology recommended monitoring patient ICU overnight -Will follow-up recommendations - Pacer pads on patient in case of need for subcutaneous pacing - Administer atropine for symptomatic bradycardia -Continuous monitor on telemetry -Troponins unremarkable -Follow-up TTE HLDContinue statin HTNpatient with hypertensive urgency with blood pressure 180s to 200s. Unable to give beta-kat due to bradycardia. Given IV hydralazine but continue to have hypertension and started on nicardipine drip -Cardiology consulted. Will follow-up recommendations Respiratory - Currently maintaining oxygen saturation on Nasal cannula. No respiratory distress. History of ABDI, unsure if patient is compliant with CPAP with underlying neurological disorder. Continue to wean oxygen as tolerated for now. Continuous monitoring pulse ox. GI - N.p.o. at midnight for potential pacemaker placement tomorrow RENAL/LYTES - Creatinine within normal limits. Monitor routine BMPs and replete electrolytes as indicated - BPHFoley, strict I's and O's. Continue Flomax, Finasteride ENDO - Hypothyroidismcontinue Synthroid HEME - H&H stable, monitor routine CBC ID - No indication for infectious process at this time. Lyme screen negative LINES/IV ACCESS - Peripheral IVs DVT PROPHYLAXIS - SCDs Thank you for allowing us to participate in the care of this patient. Please refer to my attending physician's documentation for any further recommendations. (2) HTN (hypertension): (3) BPH (benign prostatic hyperplasia): (4) GERD (gastroesophageal reflux disease): (5) Hypothyroidism: (6) Hyperlipidemia: History of Present Illness Attending Physician: José Luis aSlas DO History of Present Illness 88-year-old male with past medical history of HTN, aortic stenosis, cerebellar hemorrhage, traumatic subdural hematoma, ABDI, DM type II, hypothyroidism, GERD, prostate cancer, and cognitive impairment presented to the emergency department following syncopal full episode, and stated that he had been more weak over the past week with shortness of breath and low heart rate when taken at home for the past week by his . Patient was found to have heart rate of 47 with EKG concerning for complete heart block versus Mobitz type II. Cardiology recommended monitoring in ICU overnight. On arrival to the ICU the patient is bradycardic but appears to be asymptomatic, and is hypertensive with blood pressures in the 180s to 200s systolic. Patient denies current complaints including headache, dizziness, changes in vision, shortness of breath, cough, sore throat, chest pain, abdominal pain, nausea. Patient to remain in ICU overnight. Will go n.p.o. at midnight for possible permanent pacemaker placement Allergies Allergy/AdvReac Type Severity Reaction Status Date / Time clindamycin Allergy Unknown unknown--per Verified 01/08/24 20:31 [facility] amoxicillin AdvReac Severe JAUNDICE Verified 01/08/24 20:31 clavulanic acid AdvReac Severe JAUNDICE Verified 01/08/24 20:31 dicyclomine [From Bentyl] AdvReac Intermediate dizziness, Verified 01/08/24 20:31 light headedness isosorbide AdvReac Intermediate PAIN IN Verified 01/08/24 20:31 LIMBS DIARRHEA oxycodone AdvReac Intermediate Confusion Verified 01/08/24 20:31 pregabalin [From Lyrica] AdvReac Intermediate Confusion Verified 01/08/24 20:31 Home Medications Medication Instructions Recorded Confirmed Type cholecalciferol (vitamin D3) 25 1,000 unit PO QPM 08/21/18 01/08/24 History mcg (1,000 unit) tablet (Vitamin D3) levothyroxine 75 mcg tablet 75 mcg PO QAM 08/21/18 01/08/24 History multivitamin 1 tab PO QAM 08/21/18 01/08/24 History nitroglycerin 0.4 mg sublingual 0.4 mg sublingual UD PRN Angina 08/21/18 01/08/24 History tablet omeprazole 20 mg tablet,delayed 20 mg PO QAM 08/21/18 01/08/24 History release tamsulosin 0.4 mg capsule 0.4 mg PO QAM 08/21/18 01/08/24 History finasteride 5 mg tablet 5 mg PO QAM 10/02/19 01/08/24 History acetaminophen 500 mg tablet 500 mg PO BID 02/23/22 01/08/24 History duloxetine 60 mg capsule,delayed 60 mg PO QAM 02/23/22 01/08/24 History release sprinkle rosuvastatin 10 mg tablet 10 mg PO QPM 02/23/22 01/08/24 History B12 Active 1,000 mcg PO DAILY 07/19/23 01/08/24 History meclizine 25 mg tablet 25 mg PO BID PRN DIZZY 07/19/23 01/08/24 History metoprolol succinate 25 mg 25 mg PO DAILY 01/08/24 01/08/24 History tablet,extended release 24 hr (Toprol XL) Patient History Medical History (Updated 01/08/24 @ 20:42 by Estefany Ta PA-C) BPH (benign prostatic hyperplasia) History of shingles over 10 yrs ago History of prostate cancer RADIATION ONLY 2010 Dysphagia Anxiety and depression Spinal stenosis Osteoarthritis Degenerative disc disease Chronic back pain Chronic kidney disease, stage 3 follows with [facility] GERD (gastroesophageal reflux disease) History of esophageal dilatation Hypothyroidism Radiation proctitis Hearing deficit Stroke 2011--no deficits, no neurologist Hyperlipidemia Cardiac murmur FOLLOWS WITH DR. HITCHCOCK Sleep apnea cpap Surgical History History of craniotomy X 2 (AT [facility])---d/t hemorrhagic stroke and for a pseudomeningocele repair History of anesthesia reaction woke up paranoid and last for 3 days after both brain surgeries History of total left hip replacement History of total right hip replacement History of prostate biopsy History of colonoscopy History of esophagogastroduodenoscopy (EGD) History of appendectomy History of phacoemulsification of cataract of both eyes with intraocular lens implantation bilat History of tooth extraction all teeth Family History Mother Family history of diabetes mellitus Other No family history of adverse response to anesthesia Social History Smoking Status: Former smoker Tobacco Type: Cigarettes Second Hand Exposure: No; Do You Dip or Chew Tobacco: No; Tobacco Cessation Education Requested by Patient: No Hx Alcohol Use: No Hx Substance Use: No Preferred Language: Slovak Communication Ability: Effective Pharmacy Informaticist Required: No Beliefs That Will Affect Care: None Current Living Situation: Spouse Other Information That Helps Us Care for You: No Feels Safe at Home: Yes Safety Concerns: Feels Safe At This Time Assistive Devices: Cane, Denture - Upper and Denture - Lower Review of Systems Review of Systems: All systems reviewed & are unremarkable except as noted in HPI & below Limited due to cognitive status. See HPI Physical Exam Constitutional: comfortable; no acute distress Eyes: PERRL, conjunctivae normal, anicteric sclerae ENMT: external ear and nose normal, oropharynx normal Neck: trachea midline, no thyromegaly Respiratory: normal respiratory effort, lungs clear to auscultation Cardiovascular: Rate/Rhythm: regular rate and + bradycardic Heart Sounds: normal S1 and normal S2 Extremities: no edema Gastrointestinal (Abdomen): normal bowel sounds, soft, nontender, no hepatosplenomegaly Musculoskeletal: no cyanosis or clubbing, extremities motor strength 5/5 Skin: no rashes, warm and dry Neurologic: PERRL, EOMI, accommodation nl, no face palsy, no dysarthria Psychiatric: Orientation: oriented to person and cooperative; + not oriented to place and + not oriented to time Results & Data Results & Data Vital Signs (Past 12 Hours) Vital Signs Temp Pulse Pulse Resp BP BP Pulse Ox 01/08/24 21:11 46 L 18 96 01/08/24 20:33 43 L 16 95 01/08/24 20:12 43 L 18 95 01/08/24 20:11 43 L 01/08/24 20:00 131/97 01/08/24 20:00 43 L 18 131/97 96 01/08/24 19:36 15 95 01/08/24 19:30 17 94 01/08/24 19:03 186/80 H 01/08/24 19:00 50 L 24 95 01/08/24 18:53 161/94 H 01/08/24 18:53 44 L 20 161/94 H 95 01/08/24 18:51 44 L 19 94 01/08/24 17:37 45 L 14 95 01/08/24 17:08 47 L 18 190/72 H 95 01/08/24 16:51 45 L 15 166/80 H 92 01/08/24 16:48 45 L 13 92 01/08/24 16:39 45 L 21 91 01/08/24 16:38 45 L 01/08/24 16:37 173/91 H 01/08/24 16:30 45 L 19 95 01/08/24 16:30 36.8 C 01/08/24 16:29 94 01/08/24 16:27 01/08/24 16:24 55 L 16 181/79 H 94 O2 Del Method 01/08/24 21:11 Room Air 01/08/24 20:33 Room Air 01/08/24 20:12 Room Air 01/08/24 20:11 01/08/24 20:00 01/08/24 20:00 Room Air 01/08/24 19:36 Room Air 01/08/24 19:30 Room Air 01/08/24 19:03 01/08/24 19:00 Room Air 01/08/24 18:53 01/08/24 18:53 Room Air 01/08/24 18:51 Room Air 01/08/24 17:37 Room Air 01/08/24 17:08 Room Air 01/08/24 16:51 01/08/24 16:48 01/08/24 16:39 01/08/24 16:38 01/08/24 16:37 01/08/24 16:30 01/08/24 16:30 01/08/24 16:29 Room Air 01/08/24 16:27 Room Air 01/08/24 16:24 Room Air Coding Level of Care Code 39588 IN/OBS CONSULT LVL 3,45M Diagnoses Heart block AV third degree I44.2 HTN (hypertension) I10 BPH (benign prostatic hyperplasia) N40.0 GERD (gastroesophageal reflux disease) K21.9 Hypothyroidism E03.9 Hyperlipidemia E78.5 Time Spent (min) 48
[2024-01-08] MEDS ORDERED: STAT IV Infusion **Titration per Protocol STA (22:34)
[2024-01-08] MEDS: CHOLECALCIFEROL 25 MCG (1000 UNITS) TAB PO SCH (22:40)
[2024-01-08] MEDS: niCARdipine 25 MG in SODIUM CHLORIDE 0.9% 240 ML IV SCH (22:54)
[2024-01-09 04:55] LABS: Hematocrit (blood only) 35.2 % (42.0-52.0); Hemoglobin 12.2 g/dl (14.0-18.0); Mean Corpuscular Hgb Conc 34.7 g/dL (32.0-36.0); Mean Corpuscular Volume 89.3 fL (80.0-100.0); Platelet Count 142 K/uL (130-400); RDW Coefficient of Variation 12.7 % (11.5-14.5); RDW Standard Deviation 41.5 fL (36.4-46.3); Red Blood Count 3.94 M/uL (4.70-6.10); White Blood Count 6.17 K/ul (4.8-10.8)
[2024-01-09 05:13] LABS: BUN Creatinine Ratio 12.6 (10-20); Calcium 9.2 mg/dl (8.6-10.3); Creatinine Clr Calc Pharmacy 46.3 ml/min; Magnesium 2.1 mg/dl (1.7-2.4); Phosphorus 3.3 mg/dl (2.5-4.9); Potassium 3.7 mmol/L (3.5-5.1)
[2024-01-09] MEDS: POTASSIUM CHLORIDE CRTAB 20 MEQ TABCR PO STA (06:45)
[2024-01-09] MEDS: LEVOTHYROXINE SODIUM 75 MCG TABLET PO SCH (06:45)
--- NOTE | 2024-01-09 07:43 | Hospitalist Progress Note ---
Date of Service January 09, 2024 Assessment & Plan (1) Heart block AV third degree: (2) Recurrent falls: (3) Dysphagia: (4) HTN (hypertension): (5) Anxiety and depression: (6) Chronic kidney disease, stage 3: (7) Hypothyroidism: (8) Prostate cancer: (9) BPH (benign prostatic hyperplasia): (10) Sleep apnea: Plan Mr. Jett is an 88-year-old male with past medical history of HTN, aortic stenosis, cerebellar hemorrhage, traumatic subdural hematoma, ABDI, DM type II, hypothyroidism, GERD, prostate cancer, and cognitive impairment presented to the ICU with bradycardia with Mobitz type II heart block, currently with heart rate in the 40s. Patient now s/p pacemaker 01/08 #Third degree heart block s.p pacemaker EKG with HR 47 bpm with AV dissociation, s/p device 01/08 by Robert Discontinue Toprol Discussed with Dr. Barbour for cardiology -Downgrade to PCU -device clearance per Cards TSH WNL, K >4, Mg 1.6 -> replacing, lyme screen negative #Recurrent falls: Weakness 2/2 above Fall precautions PT/OT order #Dysphagia: Schatzki ring, empiric dilation in 2020 without relief. On a soft, slippery diet per February GI note #HTN (hypertension): Holding Toprol given AV kun dysfunction as above start amlodipine in am # Anxiety and depression: Stable. Continue duloxetine #Chronic kidney disease, stage 3: Cr 1.1, at baseline Monitor with daily BMP #hypothyroidism: Continue levothyroxine #Prostate cancer: #BPH (benign prostatic hyperplasia): Continue finasteride, tamsulosin, bladder scan and straight cath PRN Follows with [facility] GI # Sleep apnea: CPAP HS DVT Ppx: SCDs Code status: FULL PCP: Riky Dispo: Admitted to ICU Admission and Anticipated Discharge Date Admission Date: January 08, 2024 Subjective Admitted with CHB and required nicardipine overnight Now s/p pacemaker Denies any acute concerns Physical Exam Constitutional: WD/WN, vitals as above Respiratory: normal respiratory effort, lungs clear to auscultation Cardiovascular: pacer pads in place Results & Data Results & Data Vital Signs (Past 12 Hours) Vital Signs Temp Pulse Pulse Resp BP BP Pulse Ox 01/09/24 07:30 37 C 01/09/24 07:22 119/42 L 01/09/24 07:18 57 L 18 92 01/09/24 07:06 52 L 22 93 01/09/24 07:06 113/71 01/09/24 07:06 113/71 01/09/24 06:57 47 L 21 93 01/09/24 06:51 126/71 01/09/24 06:42 46 L 21 93 01/09/24 06:36 117/85 01/09/24 06:36 117/85 01/09/24 06:36 117/85 01/09/24 06:36 51 L 17 94 01/09/24 06:30 47 L 16 93 01/09/24 06:21 47 L 12 01/09/24 06:21 121/53 L 01/09/24 06:21 121/53 L 01/09/24 06:21 121/53 L 01/09/24 06:21 121/53 L 01/09/24 06:06 134/58 L 01/09/24 06:06 53 L 18 91 01/09/24 06:00 62 19 91 01/09/24 05:51 134/60 01/09/24 05:51 134/60 01/09/24 05:37 137/54 L 01/09/24 05:33 50 L 21 92 01/09/24 05:30 47 L 19 93 01/09/24 05:06 135/57 L 01/09/24 05:06 135/57 L 01/09/24 05:00 46 L 22 92 01/09/24 04:52 133/56 L 01/09/24 04:52 133/56 L 01/09/24 04:48 46 L 17 92 01/09/24 04:36 139/52 L 01/09/24 04:36 139/52 L 01/09/24 04:36 139/52 L 01/09/24 04:36 50 L 20 93 01/09/24 04:33 47 L 20 92 01/09/24 04:22 130/55 L 01/09/24 04:06 133/54 L 01/09/24 04:06 133/54 L 01/09/24 04:06 47 L 20 92 01/09/24 04:00 57 L 17 90 01/09/24 03:51 125/53 L 01/09/24 03:51 125/53 L 01/09/24 03:51 47 L 16 91 01/09/24 03:45 47 L 18 91 01/09/24 03:36 134/61 01/09/24 03:36 134/61 01/09/24 03:36 134/61 01/09/24 03:33 47 L 17 94 01/09/24 03:07 122/66 01/09/24 03:06 52 L 16 95 01/09/24 03:00 47 L 14 94 01/09/24 02:48 46 L 18 93 01/09/24 02:42 61 21 93 01/09/24 02:36 128/56 L 01/09/24 02:36 128/56 L 01/09/24 02:32 01/09/24 02:31 48 L 01/09/24 02:12 47 L 19 95 01/09/24 02:06 134/58 L 01/09/24 01:42 48 L 22 91 01/09/24 01:36 138/57 L 01/09/24 01:36 138/57 L 01/09/24 01:36 48 L 14 01/09/24 01:30 48 L 19 91 01/09/24 01:27 47 L 16 91 01/09/24 01:06 151/70 H 01/09/24 00:39 122/45 L 01/09/24 00:39 122/45 L 01/09/24 00:27 48 L 20 94 01/09/24 00:25 122/47 L 01/09/24 00:25 122/47 L 01/09/24 00:25 122/47 L 01/09/24 00:25 122/47 L 01/09/24 00:21 53 L 20 96 01/09/24 00:15 49 L 19 96 01/09/24 00:00 49 L 18 95 01/08/24 23:57 37.7 C H 81 19 95 01/08/24 23:24 142/61 H 01/08/24 23:24 142/61 H 01/08/24 23:24 37.8 C H 48 L 23 93 01/08/24 23:21 37.7 C H 20 93 01/08/24 23:20 79 24 93 01/08/24 23:03 37.7 C H 46 L 22 94 01/08/24 22:44 01/08/24 22:44 37.5 C 51 L 18 180/82 H 97 01/08/24 21:11 46 L 18 96 01/08/24 20:33 43 L 16 95 01/08/24 20:12 43 L 18 95 01/08/24 20:11 43 L 01/08/24 20:00 131/97 01/08/24 20:00 43 L 18 131/97 96 Pulse Ox O2 Del Method O2 Del Method O2 Flow Rate O2 Flow Rate 01/09/24 07:30 01/09/24 07:22 01/09/24 07:18 01/09/24 07:06 01/09/24 07:06 01/09/24 07:06 01/09/24 06:57 Nasal Cannula 2 01/09/24 06:51 01/09/24 06:42 01/09/24 06:36 01/09/24 06:36 01/09/24 06:36 01/09/24 06:36 01/09/24 06:30 01/09/24 06:21 01/09/24 06:21 01/09/24 06:21 01/09/24 06:21 01/09/24 06:21 01/09/24 06:06 01/09/24 06:06 01/09/24 06:00 01/09/24 05:51 01/09/24 05:51 01/09/24 05:37 01/09/24 05:33 01/09/24 05:30 01/09/24 05:06 01/09/24 05:06 01/09/24 05:00 01/09/24 04:52 01/09/24 04:52 01/09/24 04:48 01/09/24 04:36 01/09/24 04:36 01/09/24 04:36 01/09/24 04:36 01/09/24 04:33 01/09/24 04:22 01/09/24 04:06 01/09/24 04:06 01/09/24 04:06 01/09/24 04:00 01/09/24 03:51 01/09/24 03:51 01/09/24 03:51 01/09/24 03:45 01/09/24 03:36 01/09/24 03:36 01/09/24 03:36 01/09/24 03:33 01/09/24 03:07 01/09/24 03:06 01/09/24 03:00 01/09/24 02:48 01/09/24 02:42 01/09/24 02:36 01/09/24 02:36 01/09/24 02:32 95 Nasal Cannula 4 01/09/24 02:31 01/09/24 02:12 01/09/24 02:06 01/09/24 01:42 01/09/24 01:36 01/09/24 01:36 01/09/24 01:36 01/09/24 01:30 01/09/24 01:27 01/09/24 01:06 01/09/24 00:39 01/09/24 00:39 01/09/24 00:27 01/09/24 00:25 01/09/24 00:25 01/09/24 00:25 01/09/24 00:25 01/09/24 00:21 01/09/24 00:15 01/09/24 00:00 01/08/24 23:57 01/08/24 23:24 01/08/24 23:24 01/08/24 23:24 01/08/24 23:21 01/08/24 23:20 01/08/24 23:03 01/08/24 22:44 Nasal Cannula 4 01/08/24 22:44 Room Air 01/08/24 21:11 Room Air 01/08/24 20:33 Room Air 01/08/24 20:12 Room Air 01/08/24 20:11 01/08/24 20:00 01/08/24 20:00 Room Air Laboratory Results Short CBC 01/09/24 Range/Units 04:16 WBC 6.17 (4.8-10.8) K/ul Hgb 12.2 L (14.0-18.0) g/dl Hct 35.2 L (42.0-52.0) % Plt Count 142 (130-400) K/uL BMP 01/09/24 04:16 Sodium 136 Potassium 3.7 Chloride 103 Carbon Dioxide 24 BUN 16 Creatinine 1.27 Glucose 104 H Calcium 9.2 Urine 01/09/24 Range/Units 10:55 Urine Color Dark Yellow Urine Appearance Cloudy A (Clear) Urine pH 5.0 (4.5-7.5) Ur Specific [place] 1.020 (1.000-1.030) Urine Protein 1+ H (Negative) Urine Glucose (UA) Negative (Negative) Medications Administered Home Medications Medication Instructions Recorded Confirmed Last Taken cholecalciferol (vitamin D3) 25 1,000 unit PO QPM 08/21/18 01/08/24 01/07/24 mcg (1,000 unit) tablet (Vitamin D3) levothyroxine 75 mcg tablet 75 mcg PO QAM 08/21/18 01/08/24 01/07/24 multivitamin 1 tab PO QAM 08/21/18 01/08/24 01/07/24 nitroglycerin 0.4 mg sublingual 0.4 mg sublingual UD PRN Angina 08/21/18 01/08/24 08/22/18 12:00 tablet omeprazole 20 mg tablet,delayed 20 mg PO QAM 08/21/18 01/08/24 01/07/24 release tamsulosin 0.4 mg capsule 0.4 mg PO QAM 08/21/18 01/08/24 01/07/24 finasteride 5 mg tablet 5 mg PO QA 10/02/19 01/08/24 01/07/24 acetaminophen 500 mg tablet 500 mg PO BID 02/23/22 01/08/24 01/07/24 duloxetine 60 mg capsule,delayed 60 mg PO QAM 02/23/22 01/08/24 01/07/24 release sprinkle rosuvastatin 10 mg tablet 10 mg PO QPM 02/23/22 01/08/24 01/08/24 B12 Active 1,000 mcg PO DAILY 07/19/23 01/08/24 01/07/24 meclizine 25 mg tablet 25 mg PO BID PRN DIZZY 07/19/23 01/08/24 01/06/24 metoprolol succinate 25 mg 25 mg PO DAILY 01/08/24 01/08/24 01/08/24 tablet,extended release 24 hr (Toprol XL) Active Medications Generic Name Dose Route Start Last Admin Trade Name Freq PRN Reason Stop Dose Admin Acetaminophen 500 mg 01/08/24 22:00 01/09/24 09:47 Acetaminophen 500 Mg Tab PO 02/07/24 21:59 500 mg BID HEATHER Administration Duloxetine HCl 60 mg 01/09/24 09:00 01/09/24 09:45 Duloxetine Hcl 60 Mg Cap PO 02/08/24 08:59 60 mg QAM HEATHER Administration Finasteride 5 mg 01/09/24 09:00 01/09/24 09:46 Finasteride 5 Mg Tab PO 02/08/24 08:59 5 mg QAM HEATHER Administration Levothyroxine Sodium 75 mcg 01/09/24 06:30 01/09/24 06:45 Levothyroxine Sodium 75 Mcg Tablet PO 02/08/24 06:29 75 mcg DAILYBB HEATHER Administration Meclizine HCl 25 mg 01/08/24 21:24 01/09/24 09:46 Meclizine Hcl 25 Mg Tab PO 02/07/24 21:23 25 mg TID PRN Administration DIZZY Multivitamins 1 tab 01/09/24 09:00 01/09/24 09:45 Multivitamin Tab PO 02/08/24 08:59 1 tab QAM HEATHER Administration Pantoprazole Sodium 40 mg 01/09/24 09:00 01/09/24 09:45 Pantoprazole 40 Mg Tab PO 02/08/24 08:59 40 mg QAM HEATHER Administration Protocol Rosuvastatin Calcium 10 mg 01/09/24 11:30 01/09/24 10:54 Rosuvastatin Calcium 10 Mg Tab PO 02/08/24 11:29 10 mg QDL HEATHER Administration Tamsulosin HCl 0.4 mg 01/09/24 09:00 01/09/24 09:45 Tamsulosin Hcl 0.4 Mg Cap PO 02/08/24 08:59 0.4 mg QAM HEATHER Administration Vitamin D 25 mcg 01/08/24 22:00 01/08/24 22:40 Cholecalciferol 25 Mcg (1000 Units) Tab PO 02/07/24 21:59 25 mcg QPM HEATHER Administration
--- NOTE | 2024-01-09 08:48 | Cardiology Consultation ---
Date of Consultation January 09, 2024 Assessment & Plan (1) Heart block AV third degree: Plan Assessment: 88 year old male with presented to the ER with one week of progressively worsening weakness. EKGs obtained showing bradycardia and AV dissociation suggestive of 3rd degree heart block. Plan: Case has been discussed with Dr. Barbour. Further recommendations regarding plan of care as per his assessment. I spent a total of 40 minutes on the date of service in preparation, delivery, documentation of the care provided to the patient excluding any time spent in the performance of separately billed services. GABRIELLE Hansen [facility] Cardiology [facility] Supervising Physician Co-Signing Physician Notes Attending Staff: 88 yo man presenting with worsening weakness Dx: Complete heart block Initial EKG - sinus dany + LBBB Repeat EKG c/w complete heart block Pacing Pads placed TSH - WNL Lyme - Negative Troponin 28, 31 ECHOcardiogram: 01-09-2024 LVEf 60-65% No WMA Severe concentric LVH RV normal size and function - mild TR - mild PH - severe - PASP 65 mmHg Dilated IVC No pericardial effusion Med Hx: * Mixed Valvular heart disease () * HTN * Hyperlipidemia * Cerebellar hemorrhage/Subdural hematoma * ABDI on CPAP * Adrenal insufficiency * DM * Hypothyroidism * Anemia * Prostate CA Plans: * Telemetry consistent with CHB * Consideration for PPM * K+ goal 4.5-5 * Mag goal >2 * SBP - elevated with wide pulse pressure - this can happen in patients with CHB * Discussion with (Bee Jett) re: pacer. - called and left a message * Once K+ is repleted, consider Lasix 20 mg IV x 1 * Patient is NPO Len Barbour History of Present Illness Reason for Consultation: CHB Requesting Physician: [facility] hospitalist Attending Physician: Payton Moser MD History of Present Illness HPI: Patient is an 88 year old male with PMHx significant for mixed valvular heart disease (moderate , mild TR per echo in 2022), HTN, HLD, cerebellar hemorrhage s/p surgery, hx of traumatic subdural hematoma, ABDI on CPAP, hx of adrenal insufficiency as per records, DM type 2, hypothyroidism, chronic anemia, GERD, Hx of Prostate CA s/p radiation, Mild cognitive impairment that presented to the ER on 01/08/2024 with complaints of weakness. EKG obtained upon arrival which demonstrates SB with 1st degree AVB and Left BBB rate 45bpm a repeat EKG was done 4 minutes later as there was noted dissociation on telemetry, repeat EKG demonstrates third degree HB. External pacer pads were applied and cardiology was notified, Patient currently NPO awaiting further evaluation. HST 28.5/31.1 Mag 1.6--supplemented--now 2.1 K--WNL Lyme--Negative TSH WNL Echocardiogram pending last seen by Dr. Kyle Hitchcock outpatient cardiology dating back to 2022. Allergies Allergy/AdvReac Type Severity Reaction Status Date / Time clindamycin Allergy Unknown unknown--per Verified 01/08/24 20:31 [facility] amoxicillin AdvReac Severe JAUNDICE Verified 01/08/24 20:31 clavulanic acid AdvReac Severe JAUNDICE Verified 01/08/24 20:31 dicyclomine [From Bentyl] AdvReac Intermediate dizziness, Verified 01/08/24 20:31 light headedness isosorbide AdvReac Intermediate PAIN IN Verified 01/08/24 20:31 LIMBS DIARRHEA oxycodone AdvReac Intermediate Confusion Verified 01/08/24 20:31 pregabalin [From Lyrica] AdvReac Intermediate Confusion Verified 01/08/24 20:31 Home Medications Medication Instructions Recorded Confirmed Type cholecalciferol (vitamin D3) 25 1,000 unit PO QPM 08/21/18 01/08/24 History mcg (1,000 unit) tablet (Vitamin D3) levothyroxine 75 mcg tablet 75 mcg PO QAM 08/21/18 01/08/24 History multivitamin 1 tab PO QAM 08/21/18 01/08/24 History nitroglycerin 0.4 mg sublingual 0.4 mg sublingual UD PRN Angina 08/21/18 01/08/24 History tablet omeprazole 20 mg tablet,delayed 20 mg PO QAM 08/21/18 01/08/24 History release tamsulosin 0.4 mg capsule 0.4 mg PO QAM 08/21/18 01/08/24 History finasteride 5 mg tablet 5 mg PO QAM 10/02/19 01/08/24 History acetaminophen 500 mg tablet 500 mg PO BID 02/23/22 01/08/24 History duloxetine 60 mg capsule,delayed 60 mg PO QAM 02/23/22 01/08/24 History release sprinkle rosuvastatin 10 mg tablet 10 mg PO QPM 02/23/22 01/08/24 History B12 Active 1,000 mcg PO DAILY 07/19/23 01/08/24 History meclizine 25 mg tablet 25 mg PO BID PRN DIZZY 07/19/23 01/08/24 History metoprolol succinate 25 mg 25 mg PO DAILY 01/08/24 01/08/24 History tablet,extended release 24 hr (Toprol XL) Patient History Medical History (Updated 01/08/24 @ 20:42 by Estefany Ta PA-C) BPH (benign prostatic hyperplasia) History of shingles over 10 yrs ago History of prostate cancer RADIATION ONLY 2010 Dysphagia Anxiety and depression Spinal stenosis Osteoarthritis Degenerative disc disease Chronic back pain Chronic kidney disease, stage 3 follows with [facility] GERD (gastroesophageal reflux disease) History of esophageal dilatation Hypothyroidism Radiation proctitis Hearing deficit Stroke 2011--no deficits, no neurologist Hyperlipidemia Cardiac murmur FOLLOWS WITH DR. HITCHCOCK Sleep apnea cpap Surgical History History of craniotomy X 2 (AT [facility])---d/t hemorrhagic stroke and for a pseudomeningo anson repair History of anesthesia reaction woke up paranoid and last for 3 days after both brain surgeries History of total left hip replacement History of total right hip replacement History of prostate biopsy History of colonoscopy History of esophagogastroduodenoscopy (EGD) History of appendectomy History of phacoemulsification of cataract of both eyes with intraocular lens implantation bilat History of tooth extraction all teeth Family History Mother Family history of diabetes mellitus Other No family history of adverse response to anesthesia Social History Smoking Status: Former smoker Tobacco Type: Cigarettes Second Hand Exposure: No; Do You Dip or Chew Tobacco: No; Tobacco Cessation Education Requested by Patient: No Hx Alcohol Use: No Hx Substance Use: No Preferred Language: Kinyarwanda Communication Ability: Effective [employer] Required: No Beliefs That Will Affect Care: None Current Living Situation: Spouse Other Information That Helps Us Care for You: No Feels Safe at Home: Yes Safety Concerns: Feels Safe At This Time Assistive Devices: Cane, Denture - Upper and Denture - Lower Review of Systems Review of Systems: All systems reviewed & are unremarkable except as noted in HPI & below Physical Exam Physical Exam: As documented by Dr. Barbour Tall man in NAD A+O x 2 JVP 14 cmH20 S1S2 2/6 Systolic Murmur CTA B No C/C/E Warm and perfusing Results & Data Vital Signs (Past 12 Hours) Vital Signs Temp Pulse Pulse Resp BP BP Pulse Ox 01/09/24 07:30 37 C 01/09/24 07:22 119/42 L 01/09/24 07:18 57 L 18 92 01/09/24 07:06 52 L 22 93 01/09/24 07:06 113/71 01/09/24 07:06 113/71 01/09/24 06:57 47 L 21 93 01/09/24 06:51 126/71 01/09/24 06:42 46 L 21 93 01/09/24 06:36 117/85 01/09/24 06:36 117/85 01/09/24 06:36 117/85 01/09/24 06:36 51 L 17 94 01/09/24 06:30 47 L 16 93 01/09/24 06:21 47 L 12 01/09/24 06:21 121/53 L 01/09/24 06:21 121/53 L 01/09/24 06:21 121/53 L 01/09/24 06:21 121/53 L 01/09/24 06:06 134/58 L 01/09/24 06:06 53 L 18 91 01/09/24 06:00 62 19 91 01/09/24 05:51 134/60 01/09/24 05:51 134/60 01/09/24 05:37 137/54 L 01/09/24 05:33 50 L 21 92 01/09/24 05:30 47 L 19 93 01/09/24 05:06 135/57 L 01/09/24 05:06 135/57 L 01/09/24 05:00 46 L 22 92 01/09/24 04:52 133/56 L 01/09/24 04:52 133/56 L 01/09/24 04:48 46 L 17 92 01/09/24 04:36 139/52 L 01/09/24 04:36 139/52 L 01/09/24 04:36 139/52 L 01/09/24 04:36 50 L 20 93 01/09/24 04:33 47 L 20 92 01/09/24 04:22 130/55 L 01/09/24 04:06 133/54 L 01/09/24 04:06 133/54 L 01/09/24 04:06 47 L 20 92 01/09/24 04:00 57 L 17 90 01/09/24 03:51 125/53 L 01/09/24 03:51 125/53 L 01/09/24 03:51 47 L 16 91 01/09/24 03:45 47 L 18 91 01/09/24 03:36 134/61 01/09/24 03:36 134/61 01/09/24 03:36 134/61 01/09/24 03:33 47 L 17 94 01/09/24 03:07 122/66 01/09/24 03:06 52 L 16 95 01/09/24 03:00 47 L 14 94 01/09/24 02:48 46 L 18 93 01/09/24 02:42 61 21 93 01/09/24 02:36 128/56 L 01/09/24 02:36 128/56 L 01/09/24 02:32 01/09/24 02:31 48 L 01/09/24 02:12 47 L 19 95 01/09/24 02:06 134/58 L 01/09/24 01:42 48 L 22 91 01/09/24 01:36 138/57 L 01/09/24 01:36 138/57 L 01/09/24 01:36 48 L 14 01/09/24 01:30 48 L 19 91 01/09/24 01:27 47 L 16 91 01/09/24 01:06 151/70 H 01/09/24 00:39 122/45 L 01/09/24 00:39 122/45 L 01/09/24 00:27 48 L 20 94 01/09/24 00:25 122/47 L 01/09/24 00:25 122/47 L 01/09/24 00:25 122/47 L 01/09/24 00:25 122/47 L 01/09/24 00:21 53 L 20 96 01/09/24 00:15 49 L 19 96 01/09/24 00:00 49 L 18 95 01/08/24 23:57 37.7 C H 81 19 95 01/08/24 23:24 142/61 H 01/08/24 23:24 142/61 H 01/08/24 23:24 37.8 C H 48 L 23 93 01/08/24 23:21 37.7 C H 20 93 01/08/24 23:20 79 24 93 01/08/24 23:03 37.7 C H 46 L 22 94 01/08/24 22:44 01/08/24 22:44 37.5 C 51 L 18 180/82 H 97 01/08/24 21:11 46 L 18 96 Pulse Ox O2 Del Method O2 Del Method O2 Flow Rate O2 Flow Rate 01/09/24 07:30 01/09/24 07:22 01/09/24 07:18 01/09/24 07:06 01/09/24 07:06 01/09/24 07:06 01/09/24 06:57 Nasal Cannula 2 01/09/24 06:51 01/09/24 06:42 01/09/24 06:36 01/09/24 06:36 01/09/24 06:36 01/09/24 06:36 01/09/24 06:30 01/09/24 06:21 01/09/24 06:21 01/09/24 06:21 01/09/24 06:21 01/09/24 06:21 01/09/24 06:06 01/09/24 06:06 01/09/24 06:00 01/09/24 05:51 01/09/24 05:51 01/09/24 05:37 01/09/24 05:33 01/09/24 05:30 01/09/24 05:06 01/09/24 05:06 01/09/24 05:00 01/09/24 04:52 01/09/24 04:52 01/09/24 04:48 01/09/24 04:36 01/09/24 04:36 01/09/24 04:36 01/09/24 04:36 01/09/24 04:33 01/09/24 04:22 01/09/24 04:06 01/09/24 04:06 01/09/24 04:06 01/09/24 04:00 01/09/24 03:51 01/09/24 03:51 01/09/24 03:51 01/09/24 03:45 01/09/24 03:36 01/09/24 03:36 01/09/24 03:36 01/09/24 03:33 01/09/24 03:07 01/09/24 03:06 01/09/24 03:00 01/09/24 02:48 01/09/24 02:42 01/09/24 02:36 01/09/24 02:36 01/09/24 02:32 95 Nasal Cannula 4 01/09/24 02:31 01/09/24 02:12 01/09/24 02:06 01/09/24 01:42 01/09/24 01:36 01/09/24 01:36 01/09/24 01:36 01/09/24 01:30 01/09/24 01:27 01/09/24 01:06 01/09/24 00:39 01/09/24 00:39 01/09/24 00:27 01/09/24 00:25 01/09/24 00:25 01/09/24 00:25 01/09/24 00:25 01/09/24 00:21 01/09/24 00:15 01/09/24 00:00 01/08/24 23:57 01/08/24 23:24 01/08/24 23:24 01/08/24 23:24 01/08/24 23:21 01/08/24 23:20 01/08/24 23:03 01/08/24 22:44 Nasal Cannula 4 01/08/24 22:44 Room Air 01/08/24 21:11 Room Air Laboratory Results Cardiac Enzymes 01/08/24 01/08/24 Range/Units 16:34 18:31 AST 19 (13-39) U/L Troponin I High Sens 28.5 H 31.1 H (0-20) pg/ml CBC 01/08/24 01/09/24 Range/Units 16:34 04:16 WBC 5.09 6.17 (4.8-10.8) K/ul RBC 3.89 L 3.94 L (4.70-6.10) M/uL Hgb 12.0 L 12.2 L (14.0-18.0) g/dl Hct 34.8 L 35.2 L (42.0-52.0) % Plt Count 140 142 (130-400) K/uL Neut # (Auto) 3.21 (1.40-6.50) K/uL Lymph # (Auto) 0.96 L (1.20-3.40) K/uL [place] # (Auto) 0.72 H (0.11-0.59) K/uL Eos # (Auto) 0.15 (0.00-0.50) K/uL Baso # (Auto) 0.04 (0.00-0.20) K/uL Comprehensive Metabolic Panel 01/08/24 01/09/24 Range/Units 16:34 04:16 Sodium 135 L 136 (136-145) mmol/L Potassium 4.1 3.7 (3.5-5.1) mmol/L Chloride 102 103 (98-107) mmol/L Carbon Dioxide 27 24 (21-32) mmol/L BUN 13 16 (6-23) mg/dl Creatinine 1.11 1.27 (0.6-1.4) mg/dl Glucose 96 104 H (70-99(Fasting)) mg/dl Calcium 8.9 9.2 (8.6-10.3) mg/dl AST 19 (13-39) U/L ALT 13 (7-52) U/L Alkaline Phosphatase 78 (34-104) U/L Total Protein 7.2 (6.0-8.3) gm/dl Albumin 3.7 (3.4-5.0) gm/dl Intake and Output 01/08/24 01/09/24 01/09/24 22:59 06:59 14:59 Intake Total 100 / 550 450 / 550 161.667 / 161.667 Output Total 650 / 650 Balance 100 / -100 -200 / -100 161.667 / 161.667 Intake: IV 100 / 450 350 / 450 161.667 / 161.667 Magnesium Sulfate / D5w 1 gm In 100 / 200 100 / 200 100 ml @ 50 mls/hr IV Q2H ON LICENSE OF [facility] Rx#:[id number] niCARdipine 25 mg In Sodium 250 / 250 161.667 / 161.667 Chloride 0.9% 240 ml @ 5 MG/HR 50 mls/hr IV .Q5H ON LICENSE OF [facility] Rx#: [id number] Oral 100 / 100 Output: Urine Amount (Catheter) 650 / 650 Farrell/Indwelling 650 / 650 Other: Weight 87 kg 87 kg Weight Measurement Method Built in [facility] Built in [facility] Diagnostic Findings Echocardiogram from 07/20/2023 LVEF 60-65% Severe concentric LVH Severe calcification of the noncoronary aortic valve cusp Mild valvular aortic stenosis Mild TR No suggestion of pulm HTN Echocardiogram pending for today:
--- NOTE | 2024-01-09 09:33 | Electrocardiogram Report ---
Test Reason : Blood Pressure : */* mmHG Vent. Rate : 45 BPM Atrial Rate : 45 BPM P-R Int : 272 ms QRS Dur : 138 ms QT Int : 544 ms P-R-T Axes : 73 19 88 degrees QTcB Int : 470 ms Sinus bradycardia with 1st degree A-V block Possible Left atrial enlargement Left bundle branch block Abnormal ECG When compared with ECG of 19-Jul-2023 18:07, HI interval has increased Vent. rate has decreased by 27 bpm QRS axis Shifted right T wave inversion no longer evident in Lateral leads Confirmed by Rob Fang ([id number]) on 01/09/2024 9:33:01 AM Referred By: Jonathan Lan Confirmed By: Rob Fang
--- NOTE | 2024-01-09 09:33 | Electrocardiogram Report ---
Test Reason : Blood Pressure : */* mmHG Vent. Rate : 45 BPM Atrial Rate : 45 BPM P-R Int : 648 ms QRS Dur : 140 ms QT Int : 528 ms P-R-T Axes : 64 29 87 degrees QTcB Int : 456 ms Sinus bradycardia with 1st degree A-V block Left bundle branch block Abnormal ECG When compared with ECG of 08-Jan-2024 16:22, (unconfirmed) No significant change was found Confirmed by Rob Fang ([id number]) on 01/09/2024 9:33:32 AM Referred By: Jonathan Lan Confirmed By: Rob Fang
--- NOTE | 2024-01-09 09:42 | Electrocardiogram Report ---
Test Reason : Blood Pressure : */* mmHG Vent. Rate : 47 BPM Atrial Rate : 47 BPM P-R Int : 520 ms QRS Dur : 140 ms QT Int : 606 ms P-R-T Axes : 63 3 104 degrees QTcB Int : 536 ms Sinus bradycardia with 1st degree A-V block Left bundle branch block Abnormal ECG When compared with ECG of 08-Jan-2024 16:26, (unconfirmed) QT has lengthened Confirmed by Rob Fang ([id number]) on 01/09/2024 9:42:14 AM Referred By: Jonathan Lan Confirmed By: Rob Fang
[2024-01-09] MEDS: DULoxetine HCL 60 MG CAP PO SCH (09:45)
[2024-01-09] MEDS: TAMSULOSIN HCL 0.4 MG CAP PO SCH (09:45)
[2024-01-09] MEDS: PANTOprazole 40 MG TAB PO SCH (09:45)
[2024-01-09] MEDS: MULTIVITAMIN TAB PO SCH (09:45)
[2024-01-09] MEDS: MECLIZINE HCL 25 MG TAB PO PRN (09:46)
[2024-01-09] MEDS: FINASTERIDE 5 MG TAB PO SCH (09:46)
--- NOTE | 2024-01-09 10:16 | Critical Care Progress Note ---
Date of Service January 09, 2024 Assessment & Plan (1) Heart block AV third degree: Plan: Impression: 88-year-old male with past medical history of HTN, aortic stenosis, cerebellar hemorrhage, traumatic subdural hematoma, ABDI, DM type II, hypothyroidism, GERD, prostate cancer, and cognitive impairment presented to the ICU with bradycardia with Mobitz type II heart block, currently with heart rate in the 40s. Neuro - Cognitive disorderpatient with past medical history of cerebellar hemorrhage and traumatic subdural hematoma. Per report appears to be stable at baseline. Monitor - Continue home med regimen Cardiac -echo with severe concentric LVH. Borderline mild aortic valve stenosis. Severe pulmonary tension was noted. LVEF 60 to 65%. Bradycardiaprobable Mobitz type II. Awaiting EP evaluation possible pacemaker HLDContinue statin HTNwill attempt to wean nicardipine off today. He presented with hypertensive urgency. Respiratory - Currently maintaining oxygen saturation on Nasal cannula. No respiratory distress. History of ABDI, unsure if patient is compliant with CPAP with underlying neurological disorder. Continue to wean oxygen as tolerated for now. Continuous monitoring pulse ox. GI - N.p.o. at midnight for potential pacemaker placement tomorrow RENAL/LYTES - Creatinine within normal limits. Monitor routine BMPs and replete electrolytes as indicated - BPHFoley, strict I's and O's. Continue Flomax, Finasteride ENDO - Hypothyroidismcontinue Synthroid HEME - H&H stable, monitor routine CBC ID - No indication for infectious process at this time. Lyme screen negative LINES/IV ACCESS - Peripheral IVs DVT PROPHYLAXIS - SCDs Downgrade out of the ICU after pacemaker placement. (2) HTN (hypertension): (3) BPH (benign prostatic hyperplasia): (4) GERD (gastroesophageal reflux disease): (5) Hypothyroidism: (6) Hyperlipidemia: Admission and Anticipated Discharge Date Admission Date: January 08, 2024 Subjective Patient seen and examined. Denies any major complaints at this present time. On low-dose nicardipine given hypertension. Discussed with nursing and multidi sciplinary services. Review of Systems Review of Systems: All systems reviewed & are unremarkable except as noted in HPI & below Physical Exam Constitutional: comfortable; no acute distress Eyes: PERRL, conjunctivae normal, anicteric sclerae ENMT: external ear and nose normal, oropharynx normal Neck: trachea midline, no thyromegaly Respiratory: normal respiratory effort, lungs clear to auscultation Cardiovascular: Rate/Rhythm: regular rate and + bradycardic Heart Sounds: normal S1 and normal S2 Extremities: no edema Gastrointestinal (Abdomen): normal bowel sounds, soft, nontender, no hepatosplenomegaly Musculoskeletal: no cyanosis or clubbing, extremities motor strength 5/5 Skin: no rashes, warm and dry Neurologic: PERRL, EOMI, accommodation nl, no face palsy, no dysarthria Psychiatric: Orientation: oriented to person and cooperative; + not oriented to place and + not oriented to time Results & Data Results & Data Vital Signs (Past 12 Hours) Vital Signs Temp Pulse Pulse Resp BP BP Pulse Ox 01/09/24 07:30 37 C 01/09/24 07:22 119/42 L 01/09/24 07:18 57 L 18 92 01/09/24 07:06 52 L 22 93 01/09/24 07:06 113/71 01/09/24 07:06 113/71 01/09/24 07:00 47 L 01/09/24 06:57 47 L 21 93 01/09/24 06:51 126/71 01/09/24 06:42 46 L 21 93 01/09/24 06:36 117/85 01/09/24 06:36 117/85 01/09/24 06:36 117/85 01/09/24 06:36 51 L 17 94 01/09/24 06:30 47 L 16 93 01/09/24 06:21 47 L 12 01/09/24 06:21 121/53 L 01/09/24 06:21 121/53 L 01/09/24 06:21 121/53 L 01/09/24 06:21 121/53 L 01/09/24 06:06 134/58 L 01/09/24 06:06 53 L 18 91 01/09/24 06:00 62 19 91 01/09/24 05:51 134/60 01/09/24 05:51 134/60 01/09/24 05:37 137/54 L 01/09/24 05:33 50 L 21 92 01/09/24 05:30 47 L 19 93 01/09/24 05:06 135/57 L 01/09/24 05:06 135/57 L 01/09/24 05:00 46 L 22 92 01/09/24 04:52 133/56 L 01/09/24 04:52 133/56 L 01/09/24 04:48 46 L 17 92 01/09/24 04:36 139/52 L 01/09/24 04:36 139/52 L 01/09/24 04:36 139/52 L 01/09/24 04:36 50 L 20 93 01/09/24 04:33 47 L 20 92 01/09/24 04:22 130/55 L 01/09/24 04:06 133/54 L 01/09/24 04:06 133/54 L 01/09/24 04:06 47 L 20 92 01/09/24 04:00 57 L 17 90 01/09/24 03:51 125/53 L 01/09/24 03:51 125/53 L 01/09/24 03:51 47 L 16 91 01/09/24 03:45 47 L 18 91 01/09/24 03:36 134/61 01/09/24 03:36 134/61 01/09/24 03:36 134/61 01/09/24 03:33 47 L 17 94 01/09/24 03:07 122/66 01/09/24 03:06 52 L 16 95 01/09/24 03:00 47 L 14 94 01/09/24 02:48 46 L 18 93 01/09/24 02:42 61 21 93 01/09/24 02:36 128/56 L 01/09/24 02:36 128/56 L 01/09/24 02:32 01/09/24 02:31 48 L 01/09/24 02:12 47 L 19 95 01/09/24 02:06 134/58 L 01/09/24 01:42 48 L 22 91 01/09/24 01:36 138/57 L 01/09/24 01:36 138/57 L 01/09/24 01:36 48 L 14 01/09/24 01:30 48 L 19 91 01/09/24 01:27 47 L 16 91 01/09/24 01:06 151/70 H 01/09/24 00:39 122/45 L 01/09/24 00:39 122/45 L 01/09/24 00:27 48 L 20 94 01/09/24 00:25 122/47 L 01/09/24 00:25 122/47 L 01/09/24 00:25 122/47 L 01/09/24 00:25 122/47 L 01/09/24 00:21 53 L 20 96 01/09/24 00:15 49 L 19 96 01/09/24 00:00 49 L 18 95 01/08/24 23:57 37.7 C H 81 19 95 01/08/24 23:24 142/61 H 01/08/24 23:24 142/61 H 01/08/24 23:24 37.8 C H 48 L 23 93 01/08/24 23:21 37.7 C H 20 93 01/08/24 23:20 79 24 93 01/08/24 23:03 37.7 C H 46 L 22 94 01/08/24 22:44 01/08/24 22:44 37.5 C 51 L 18 180/82 H 97 Pulse Ox O2 Del Method O2 Del Method O2 Flow Rate O2 Flow Rate 01/09/24 07:30 01/09/24 07:22 01/09/24 07:18 01/09/24 07:06 01/09/24 07:06 01/09/24 07:06 01/09/24 07:00 01/09/24 06:57 Nasal Cannula 2 01/09/24 06:51 01/09/24 06:42 01/09/24 06:36 01/09/24 06:36 01/09/24 06:36 01/09/24 06:36 01/09/24 06:30 01/09/24 06:21 01/09/24 06:21 01/09/24 06:21 01/09/24 06:21 01/09/24 06:21 01/09/24 06:06 01/09/24 06:06 01/09/24 06:00 01/09/24 05:51 01/09/24 05:51 01/09/24 05:37 01/09/24 05:33 01/09/24 05:30 01/09/24 05:06 01/09/24 05:06 01/09/24 05:00 01/09/24 04:52 01/09/24 04:52 01/09/24 04:48 01/09/24 04:36 01/09/24 04:36 01/09/24 04:36 01/09/24 04:36 01/09/24 04:33 01/09/24 04:22 01/09/24 04:06 01/09/24 04:06 01/09/24 04:06 01/09/24 04:00 01/09/24 03:51 01/09/24 03:51 01/09/24 03:51 01/09/24 03:45 01/09/24 03:36 01/09/24 03:36 01/09/24 03:36 01/09/24 03:33 01/09/24 03:07 01/09/24 03:06 01/09/24 03:00 01/09/24 02:48 01/09/24 02:42 01/09/24 02:36 01/09/24 02:36 01/09/24 02:32 95 Nasal Cannula 4 01/09/24 02:31 01/09/24 02:12 01/09/24 02:06 01/09/24 01:42 01/09/24 01:36 01/09/24 01:36 01/09/24 01:36 01/09/24 01:30 01/09/24 01:27 01/09/24 01:06 01/09/24 00:39 01/09/24 00:39 01/09/24 00:27 01/09/24 00:25 01/09/24 00:25 01/09/24 00:25 01/09/24 00:25 01/09/24 00:21 01/09/24 00:15 01/09/24 00:00 01/08/24 23:57 01/08/24 23:24 01/08/24 23:24 01/08/24 23:24 01/08/24 23:21 01/08/24 23:20 01/08/24 23:03 01/08/24 22:44 Nasal Cannula 4 01/08/24 22:44 Room Air Coding Level of Care Code 11423 SUB INP/OBS CARE 2/35MIN Diagnoses Heart block AV third degree I44.2 HTN (hypertension) I10 BPH (benign prostatic hyperplasia) N40.0 GERD (gastroesophageal reflux disease) K21.9 Hypothyroidism E03.9 Hyperlipidemia E78.5
[2024-01-09] MEDS: ROSUVASTATIN CALCIUM 10 MG TAB PO SCH (10:54)
[2024-01-09 11:33] LABS: Appearance Urine Cloudy (Clear); Bacteria Urine Automated None Seen (None Seen); Bilirubin Urine 1+ (Negative); Blood Urine 2+ (Negative); Calcium Oxalate Crystals Urine Present (None Prsent); Color Urine Dark Yellow; Glucose Urine UA Negative (Negative); Ketones Urine Trace (Negative); Leukocyte Esterase Urine 2+ (Negative); Mucus Urine Present (None Prsent); Nitrite Urine Negative (Negative); Protein Urine 1+ (Negative); RBC Urine Automated >20 /hpf (0-2); Urobilinogen Urine Negative (Negative)
--- NOTE | 2024-01-09 11:34 | History & Physical Bridge Note ---
Date of Service January 09, 2024 History & Physical Bridge Note I have examined the patient, reviewed the History & Physical and in the interval since the performance of the History & Physical I have noted the following changes of clinical significance:pt admitted with CHB recommended a dual chamber ppm. I spoke with the patient's over the phone Bee and explained the risks of the procedure-she expressed an understanding and phone consent obtained and witnessed.
--- NOTE | 2024-01-09 11:56 | Pre Anesthesia Assessment ---
Date of Service January 09, 2024 Pre Sedation Assessment Vital Signs Temp Pulse Pulse Resp BP BP Pulse Ox 01/09/24 10:24 37.5 C 01/09/24 10:07 140/66 01/09/24 10:06 47 L 24 92 01/09/24 09:51 138/61 01/09/24 09:51 48 L 28 H 92 01/09/24 09:36 151/60 H 01/09/24 09:36 151/60 H 01/09/24 09:36 151/60 H 01/09/24 09:36 49 L 23 92 01/09/24 09:21 146/61 H 01/09/24 09:18 49 L 22 92 01/09/24 09:07 138/66 01/09/24 09:06 51 L 21 93 01/09/24 09:03 47 L 18 94 01/09/24 08:51 147/60 H 01/09/24 08:45 81 21 89 L 01/09/24 08:21 53 L 21 90 01/09/24 08:21 120/87 01/09/24 08:06 144/76 H 01/09/24 08:03 49 L 18 91 01/09/24 07:37 142/59 H 01/09/24 07:36 52 L 20 90 01/09/24 07:30 01/09/24 07:30 37 C 01/09/24 07:22 119/42 L 01/09/24 07:18 57 L 18 92 01/09/24 07:06 52 L 22 93 01/09/24 07:06 113/71 01/09/24 07:06 113/71 01/09/24 07:00 47 L 01/09/24 06:57 47 L 21 93 01/09/24 06:51 126/71 01/09/24 06:42 46 L 21 93 01/09/24 06:36 117/85 01/09/24 06:36 117/85 01/09/24 06:36 117/85 01/09/24 06:36 51 L 17 94 01/09/24 06:30 47 L 16 93 01/09/24 06:21 47 L 12 01/09/24 06:21 121/53 L 01/09/24 06:21 121/53 L 01/09/24 06:21 121/53 L 01/09/24 06:21 121/53 L 01/09/24 06:06 134/58 L 01/09/24 06:06 53 L 18 91 01/09/24 06:00 62 19 91 01/09/24 05:51 134/60 01/09/24 05:51 134/60 01/09/24 05:37 137/54 L 01/09/24 05:33 50 L 21 92 01/09/24 05:30 47 L 19 93 01/09/24 05:06 135/57 L 01/09/24 05:06 135/57 L 01/09/24 05:00 46 L 22 92 01/09/24 04:52 133/56 L 01/09/24 04:52 133/56 L 01/09/24 04:48 46 L 17 92 01/09/24 04:36 139/52 L 01/09/24 04:36 139/52 L 01/09/24 04:36 139/52 L 01/09/24 04:36 50 L 20 93 01/09/24 04:33 47 L 20 92 01/09/24 04:22 130/55 L 01/09/24 04:06 133/54 L 01/09/24 04:06 133/54 L 01/09/24 04:06 47 L 20 92 01/09/24 04:00 57 L 17 90 01/09/24 03:51 125/53 L 01/09/24 03:51 125/53 L 01/09/24 03:51 47 L 16 91 01/09/24 03:45 47 L 18 91 01/09/24 03:36 134/61 01/09/24 03:36 134/61 01/09/24 03:36 134/61 01/09/24 03:33 47 L 17 94 01/09/24 03:07 122/66 01/09/24 03:06 52 L 16 95 01/09/24 03:00 47 L 14 94 01/09/24 02:48 46 L 18 93 01/09/24 02:42 61 21 93 01/09/24 02:36 128/56 L 01/09/24 02:36 128/56 L 01/09/24 02:32 01/09/24 02:31 48 L 01/09/24 02:12 47 L 19 95 01/09/24 02:06 134/58 L 01/09/24 01:42 48 L 22 91 01/09/24 01:36 138/57 L 01/09/24 01:36 138/57 L 01/09/24 01:36 48 L 14 01/09/24 01:30 48 L 19 91 01/09/24 01:27 47 L 16 91 01/09/24 01:06 151/70 H 01/09/24 00:39 122/45 L 01/09/24 00:39 122/45 L 01/09/24 00:27 48 L 20 94 01/09/24 00:25 122/47 L 01/09/24 00:25 122/47 L 01/09/24 00:25 122/47 L 01/09/24 00:25 122/47 L 01/09/24 00:21 53 L 20 96 01/09/24 00:15 49 L 19 96 01/09/24 00:00 49 L 18 95 01/08/24 23:57 37.7 C H 81 19 95 01/08/24 23:24 142/61 H 01/08/24 23:24 142/61 H 01/08/24 23:24 37.8 C H 48 L 23 93 01/08/24 23:21 37.7 C H 20 93 01/08/24 23:20 79 24 93 01/08/24 23:03 37.7 C H 46 L 22 94 01/08/24 22:44 01/08/24 22:44 37.5 C 51 L 18 180/82 H 97 01/08/24 21:11 46 L 18 96 01/08/24 20:33 43 L 16 95 01/08/24 20:12 43 L 18 95 01/08/24 20:11 43 L 01/08/24 20:00 131/97 01/08/24 20:00 43 L 18 131/97 96 01/08/24 19:36 15 95 01/08/24 19:30 17 94 01/08/24 19:03 186/80 H 01/08/24 19:00 50 L 24 95 01/08/24 18:53 161/94 H 01/08/24 18:53 44 L 20 161/94 H 95 01/08/24 18:51 44 L 19 94 01/08/24 17:37 45 L 14 95 01/08/24 17:08 47 L 18 190/72 H 95 01/08/24 16:51 45 L 15 166/80 H 92 01/08/24 16:48 45 L 13 92 01/08/24 16:39 45 L 21 91 01/08/24 16:38 45 L 01/08/24 16:37 173/91 H 01/08/24 16:30 45 L 19 95 01/08/24 16:30 36.8 C 01/08/24 16:29 94 01/08/24 16:27 01/08/24 16:24 55 L 16 181/79 H 94 Pulse Ox O2 Del Method O2 Del Method O2 Flow Rate O2 Flow Rate 01/09/24 10:24 01/09/24 10:07 01/09/24 10:06 01/09/24 09:51 01/09/24 09:51 01/09/24 09:36 01/09/24 09:36 01/09/24 09:36 01/09/24 09:36 Nasal Cannula 2 01/09/24 09:21 01/09/24 09:18 01/09/24 09:07 01/09/24 09:06 01/09/24 09:03 01/09/24 08:51 01/09/24 08:45 01/09/24 08:21 01/09/24 08:21 01/09/24 08:06 01/09/24 08:03 01/09/24 07:37 01/09/24 07:36 01/09/24 07:30 Nasal Cannula 2 01/09/24 07:30 01/09/24 07:22 01/09/24 07:18 01/09/24 07:06 01/09/24 07:06 01/09/24 07:06 01/09/24 07:00 01/09/24 06:57 Nasal Cannula 2 01/09/24 06:51 01/09/24 06:42 01/09/24 06:36 01/09/24 06:36 01/09/24 06:36 01/09/24 06:36 01/09/24 06:30 01/09/24 06:21 01/09/24 06:21 01/09/24 06:21 01/09/24 06:21 01/09/24 06:21 01/09/24 06:06 01/09/24 06:06 01/09/24 06:00 01/09/24 05:51 01/09/24 05:51 01/09/24 05:37 01/09/24 05:33 01/09/24 05:30 01/09/24 05:06 01/09/24 05:06 01/09/24 05:00 01/09/24 04:52 01/09/24 04:52 01/09/24 04:48 01/09/24 04:36 01/09/24 04:36 01/09/24 04:36 01/09/24 04:36 01/09/24 04:33 01/09/24 04:22 01/09/24 04:06 01/09/24 04:06 01/09/24 04:06 01/09/24 04:00 01/09/24 03:51 01/09/24 03:51 01/09/24 03:51 01/09/24 03:45 01/09/24 03:36 01/09/24 03:36 01/09/24 03:36 01/09/24 03:33 01/09/24 03:07 01/09/24 03:06 01/09/24 03:00 01/09/24 02:48 01/09/24 02:42 01/09/24 02:36 01/09/24 02:36 01/09/24 02:32 95 Nasal Cannula 4 01/09/24 02:31 01/09/24 02:12 01/09/24 02:06 01/09/24 01:42 01/09/24 01:36 01/09/24 01:36 01/09/24 01:36 01/09/24 01:30 01/09/24 01:27 01/09/24 01:06 01/09/24 00:39 01/09/24 00:39 01/09/24 00:27 01/09/24 00:25 01/09/24 00:25 01/09/24 00:25 01/09/24 00:25 01/09/24 00:21 01/09/24 00:15 01/09/24 00:00 01/08/24 23:57 01/08/24 23:24 01/08/24 23:24 01/08/24 23:24 01/08/24 23:21 01/08/24 23:20 01/08/24 23:03 01/08/24 22:44 Nasal Cannula 4 01/08/24 22:44 Room Air 01/08/24 21:11 Room Air 01/08/24 20:33 Room Air 01/08/24 20:12 Room Air 01/08/24 20:11 01/08/24 20:00 01/08/24 20:00 Room Air 01/08/24 19:36 Room Air 01/08/24 19:30 Room Air 01/08/24 19:03 01/08/24 19:00 Room Air 01/08/24 18:53 01/08/24 18:53 Room Air 01/08/24 18:51 Room Air 01/08/24 17:37 Room Air 01/08/24 17:08 Room Air 01/08/24 16:51 01/08/24 16:48 01/08/24 16:39 01/08/24 16:38 01/08/24 16:37 01/08/24 16:30 01/08/24 16:30 01/08/24 16:29 Room Air 01/08/24 16:27 Room Air 01/08/24 16:24 Room Air Cardiovascular + bradycardic Respiratory normal respiratory effort, lungs clear to auscultation Pre-Sedation Airway Assessment Smoking Status: Former smoker Hx Sleep Apnea: No Hx Difficult Intubation: No Short, Thick Neck: No Thyromental Distance: < 3.5 Finger Breadths Oral Cavity: + Dental Abnormalities Mallampati Class: II ASA: ASA3 NPO Status Date of Last Intake of Fluids: 01/08/24 Date of Last Intake of Solid Food: 01/08/24 Procedure Planning Contraindications for Sedation: none Current Medications Reviewed: Yes Notes The planned sedation has been discussed with the patient. Informed Consent was obtained. I have identified the patient, determined the appropriateness of sedation and have assessed the patient immediately prior to the procedure. All medicine(s) and interventions are by my order.
[2024-01-09] MEDS: MIDAZOLAM HCL 5 MG/ML 1 ML VIAL ONE (12:53)
[2024-01-09] MEDS: LIDOCAINE 1% LOCAL 20 ML VIAL ONE (12:53)
[2024-01-09] MEDS: VANCOMYCIN HCL 1000MG/20ML VIAL ONE (12:53)
[2024-01-09] MEDS: BUPIVACAINE 0.25% PF 30 ML VIAL ONE (12:53)
[2024-01-09] MEDS: ceFAZolin 330 MG/ML 1 GM VIAL ONE (12:54)
[2024-01-09] MEDS: fentaNYL citrate PF 100 MCG/2 ML VIAL ONE (12:54)
--- NOTE | 2024-01-09 13:26 | Post Anesthesia Assessment ---
Date of Service January 09, 2024 Post Sedation Assessment Vital Signs Temp Pulse Pulse Resp BP BP Pulse Ox 01/09/24 10:24 37.5 C 01/09/24 10:07 140/66 01/09/24 10:06 47 L 24 92 01/09/24 09:51 138/61 01/09/24 09:51 48 L 28 H 92 01/09/24 09:36 151/60 H 01/09/24 09:36 151/60 H 01/09/24 09:36 151/60 H 01/09/24 09:36 49 L 23 92 01/09/24 09:21 146/61 H 01/09/24 09:18 49 L 22 92 01/09/24 09:07 138/66 01/09/24 09:06 51 L 21 93 01/09/24 09:03 47 L 18 94 01/09/24 08:51 147/60 H 01/09/24 08:45 81 21 89 L 01/09/24 08:21 53 L 21 90 01/09/24 08:21 120/87 01/09/24 08:06 144/76 H 01/09/24 08:03 49 L 18 91 01/09/24 07:37 142/59 H 01/09/24 07:36 52 L 20 90 01/09/24 07:30 01/09/24 07:30 37 C 01/09/24 07:22 119/42 L 01/09/24 07:18 57 L 18 92 01/09/24 07:06 52 L 22 93 01/09/24 07:06 113/71 01/09/24 07:06 113/71 01/09/24 07:00 47 L 01/09/24 06:57 47 L 21 93 01/09/24 06:51 126/71 01/09/24 06:42 46 L 21 93 01/09/24 06:36 117/85 01/09/24 06:36 117/85 01/09/24 06:36 117/85 01/09/24 06:36 51 L 17 94 01/09/24 06:30 47 L 16 93 01/09/24 06:21 47 L 12 01/09/24 06:21 121/53 L 01/09/24 06:21 121/53 L 01/09/24 06:21 121/53 L 01/09/24 06:21 121/53 L 01/09/24 06:06 134/58 L 01/09/24 06:06 53 L 18 91 01/09/24 06:00 62 19 91 01/09/24 05:51 134/60 01/09/24 05:51 134/60 01/09/24 05:37 137/54 L 01/09/24 05:33 50 L 21 92 01/09/24 05:30 47 L 19 93 01/09/24 05:06 135/57 L 01/09/24 05:06 135/57 L 01/09/24 05:00 46 L 22 92 01/09/24 04:52 133/56 L 01/09/24 04:52 133/56 L 01/09/24 04:48 46 L 17 92 01/09/24 04:36 139/52 L 01/09/24 04:36 139/52 L 01/09/24 04:36 139/52 L 01/09/24 04:36 50 L 20 93 01/09/24 04:33 47 L 20 92 01/09/24 04:22 130/55 L 01/09/24 04:06 133/54 L 01/09/24 04:06 133/54 L 01/09/24 04:06 47 L 20 92 01/09/24 04:00 57 L 17 90 01/09/24 03:51 125/53 L 01/09/24 03:51 125/53 L 01/09/24 03:51 47 L 16 91 01/09/24 03:45 47 L 18 91 01/09/24 03:36 134/61 01/09/24 03:36 134/61 01/09/24 03:36 134/61 01/09/24 03:33 47 L 17 94 01/09/24 03:07 122/66 01/09/24 03:06 52 L 16 95 01/09/24 03:00 47 L 14 94 01/09/24 02:48 46 L 18 93 01/09/24 02:42 61 21 93 01/09/24 02:36 128/56 L 01/09/24 02:36 128/56 L 01/09/24 02:32 01/09/24 02:31 48 L 01/09/24 02:12 47 L 19 95 01/09/24 02:06 134/58 L 01/09/24 01:42 48 L 22 91 01/09/24 01:36 138/57 L 01/09/24 01:36 138/57 L 01/09/24 01:36 48 L 14 01/09/24 01:30 48 L 19 91 01/09/24 01:27 47 L 16 91 01/09/24 01:06 151/70 H 01/09/24 00:39 122/45 L 01/09/24 00:39 122/45 L 01/09/24 00:27 48 L 20 94 01/09/24 00:25 122/47 L 01/09/24 00:25 122/47 L 01/09/24 00:25 122/47 L 01/09/24 00:25 122/47 L 01/09/24 00:21 53 L 20 96 01/09/24 00:15 49 L 19 96 01/09/24 00:00 49 L 18 95 01/08/24 23:57 37.7 C H 81 19 95 01/08/24 23:24 142/61 H 01/08/24 23:24 142/61 H 01/08/24 23:24 37.8 C H 48 L 23 93 01/08/24 23:21 37.7 C H 20 93 01/08/24 23:20 79 24 93 01/08/24 23:03 37.7 C H 46 L 22 94 01/08/24 22:44 01/08/24 22:44 37.5 C 51 L 18 180/82 H 97 01/08/24 21:11 46 L 18 96 01/08/24 20:33 43 L 16 95 01/08/24 20:12 43 L 18 95 01/08/24 20:11 43 L 01/08/24 20:00 131/97 01/08/24 20:00 43 L 18 131/97 96 01/08/24 19:36 15 95 01/08/24 19:30 17 94 01/08/24 19:03 186/80 H 01/08/24 19:00 50 L 24 95 01/08/24 18:53 161/94 H 01/08/24 18:53 44 L 20 161/94 H 95 01/08/24 18:51 44 L 19 94 01/08/24 17:37 45 L 14 95 01/08/24 17:08 47 L 18 190/72 H 95 01/08/24 16:51 45 L 15 166/80 H 92 01/08/24 16:48 45 L 13 92 01/08/24 16:39 45 L 21 91 01/08/24 16:38 45 L 01/08/24 16:37 173/91 H 01/08/24 16:30 45 L 19 95 01/08/24 16:30 36.8 C 01/08/24 16:29 94 01/08/24 16:27 01/08/24 16:24 55 L 16 181/79 H 94 Pulse Ox O2 Del Method O2 Del Method O2 Flow Rate O2 Flow Rate 01/09/24 10:24 01/09/24 10:07 01/09/24 10:06 01/09/24 09:51 01/09/24 09:51 01/09/24 09:36 01/09/24 09:36 01/09/24 09:36 01/09/24 09:36 Nasal Cannula 2 01/09/24 09:21 01/09/24 09:18 01/09/24 09:07 01/09/24 09:06 01/09/24 09:03 01/09/24 08:51 01/09/24 08:45 01/09/24 08:21 01/09/24 08:21 01/09/24 08:06 01/09/24 08:03 01/09/24 07:37 01/09/24 07:36 01/09/24 07:30 Nasal Cannula 2 01/09/24 07:30 01/09/24 07:22 01/09/24 07:18 01/09/24 07:06 01/09/24 07:06 01/09/24 07:06 01/09/24 07:00 01/09/24 06:57 Nasal Cannula 2 01/09/24 06:51 01/09/24 06:42 01/09/24 06:36 01/09/24 06:36 01/09/24 06:36 01/09/24 06:36 01/09/24 06:30 01/09/24 06:21 01/09/24 06:21 01/09/24 06:21 01/09/24 06:21 01/09/24 06:21 01/09/24 06:06 01/09/24 06:06 01/09/24 06:00 01/09/24 05:51 01/09/24 05:51 01/09/24 05:37 01/09/24 05:33 01/09/24 05:30 01/09/24 05:06 01/09/24 05:06 01/09/24 05:00 01/09/24 04:52 01/09/24 04:52 01/09/24 04:48 01/09/24 04:36 01/09/24 04:36 01/09/24 04:36 01/09/24 04:36 01/09/24 04:33 01/09/24 04:22 01/09/24 04:06 01/09/24 04:06 01/09/24 04:06 01/09/24 04:00 01/09/24 03:51 01/09/24 03:51 01/09/24 03:51 01/09/24 03:45 01/09/24 03:36 01/09/24 03:36 01/09/24 03:36 01/09/24 03:33 01/09/24 03:07 01/09/24 03:06 01/09/24 03:00 01/09/24 02:48 01/09/24 02:42 01/09/24 02:36 01/09/24 02:36 01/09/24 02:32 95 Nasal Cannula 4 01/09/24 02:31 01/09/24 02:12 01/09/24 02:06 01/09/24 01:42 01/09/24 01:36 01/09/24 01:36 01/09/24 01:36 01/09/24 01:30 01/09/24 01:27 01/09/24 01:06 01/09/24 00:39 01/09/24 00:39 01/09/24 00:27 01/09/24 00:25 01/09/24 00:25 01/09/24 00:25 01/09/24 00:25 01/09/24 00:21 01/09/24 00:15 01/09/24 00:00 01/08/24 23:57 01/08/24 23:24 01/08/24 23:24 01/08/24 23:24 01/08/24 23:21 01/08/24 23:20 01/08/24 23:03 01/08/24 22:44 Nasal Cannula 4 01/08/24 22:44 Room Air 01/08/24 21:11 Room Air 01/08/24 20:33 Room Air 01/08/24 20:12 Room Air 01/08/24 20:11 01/08/24 20:00 01/08/24 20:00 Room Air 01/08/24 19:36 Room Air 01/08/24 19:30 Room Air 01/08/24 19:03 01/08/24 19:00 Room Air 01/08/24 18:53 01/08/24 18:53 Room Air 01/08/24 18:51 Room Air 01/08/24 17:37 Room Air 01/08/24 17:08 Room Air 01/08/24 16:51 01/08/24 16:48 01/08/24 16:39 01/08/24 16:38 01/08/24 16:37 01/08/24 16:30 01/08/24 16:30 01/08/24 16:29 Room Air 01/08/24 16:27 Room Air 01/08/24 16:24 Room Air Recovery Score Activity: Moves 4 extremities Respiration: Deep Breath/Cough Circulation: +/-20% PreAnes Value Consciousness: Fully Awake Oxygen Saturation: > 92% On Room Air Discharge Sedation Level of Care: Fast Track Phase II Post Sedation Plan On clinical assessment, the patient appears to have tolerated the sedation without complications. Patient is recovering as anticipated. Patient will continue to be monitored by nursing and may be discharged when sedation discharge criteria are met per below protocol. Upon Completions of procedure up to 15 minutes continue every 5 minute vital signs and the P.A.R. score; then discharge to a Phase I or Fast Track to Phase II per the following guidelines: * Discharge Patient to appropriate Phase II area if PAR is 8 or greater or return to pre- procedure baseline. The post - procedure orders will be as directed. * If PAR score is less than 8 or not return to pre-procedure baseline then patient will follow Phase I monitoring till PAR is reached for Phase II. The Phase I may be done in procedure room or may call to secure a Phase I area. * If naloxone or flumazenil are used for reversal, hold in Phase I for continued monitoring from when last reversal dose was given for a minimum of 60 minutes or longer pending the nurse and/or physician discretion of patient condition before discharge to Phase II. Please call the Sedation Physician to re-evaluate and complete post-note for discharge to Phase II area. Do NOT discharge from procedure sedation or Phase 1 until post- sedation evaluation note is complete by procedure /sedation MD Sedation Discharge Instructions to be given to the patient at discharge to home.
[2024-01-09] MEDS: WATER, STERILE FOR INJ 10 ML VIAL ONE (13:58)
[2024-01-09] MEDS: METOPROLOL TARTRATE 1 MG/ML VIAL IV ONE (13:59)
[2024-01-10 04:25] LABS: Hematocrit (blood only) 35.5 % (42.0-52.0); Hemoglobin 12.2 g/dl (14.0-18.0); Mean Corpuscular Hemoglobin 30.8 pg (25.0-34.0); Mean Corpuscular Hgb Conc 34.4 g/dL (32.0-36.0); Mean Corpuscular Volume 89.6 fL (80.0-100.0); Mean Platelet Volume 11.8 fL (9.4-12.4); Platelet Count 130 K/uL (130-400); RDW Coefficient of Variation 12.7 % (11.5-14.5); RDW Standard Deviation 41.9 fL (36.4-46.3); Red Blood Count 3.96 M/uL (4.70-6.10); White Blood Count 4.94 K/ul (4.8-10.8)
[2024-01-10 04:38] LABS: Calcium 9.4 mg/dl (8.6-10.3); Creatinine Clr Calc Pharmacy 58.8 ml/min; Magnesium 1.9 mg/dl (1.7-2.4); Phosphorus 3.3 mg/dl (2.5-4.9)
[2024-01-10] MEDS: amLODIPine BESYLATE 5 MG TAB PO SCH (05:47)
--- NOTE | 2024-01-10 07:19 | Cardiology Progress Note ---
Date of Service January 10, 2024 Assessment & Plan (1) Heart block AV third degree: Plan 88 yo man presenting with worsening weakness Dx: Complete heart block Initial EKG - sinus dany + LBBB Repeat EKG c/w complete heart block Pacing Pads placed TSH - WNL Lyme - Negative Troponin 28, 31 ECHOcardiogram: 01-09-2024 LVEf 60-65% No WMA Severe concentric LVH RV normal size and function - mild TR - mild PH - severe - PASP 65 mmHg Dilated IVC No pericardial effusion Med Hx: * Mixed Valvular heart disease () * HTN * Hyperlipidemia * Cerebellar hemorrhage/Subdural hematoma * ABDI on CPAP * Adrenal insufficiency * DM * Hypothyroidism * Anemia * Prostate CA Plans: * CHB on presentation * S/P PPM placement on 01/09/2024 ([facility] - dual chamber) * Check CXR for Pacer placement (PENDING) * K+ goal 4.5-5 * Kdur 40 meq po x 1 * Mag goal >2 * SBP - markedly elevated * Lasix 40 mg IV x 1 * STOP IV LASIX on 01/11/2024 * Start Lasix 20 mg po per day * SBP 154 mmHg * Increase Amlodipine 10 mg po per day * [facility] * Outpatient work up for amyloid - [facility] bleeding +severe concentric hypertrophy * Please call back with additional questions Len Barbour Admission and Anticipated Discharge Date Admission Date: January 08, 2024 Subjective Events Overnight: Subjective: Review of Systems Review of Systems: All systems reviewed & are unremarkable except as noted in HPI & below Physical Exam Physical Exam: As documented by Dr. Barbour Tall man in NAD A+O x 2 JVP 14 cmH20 Pacer in Left upper chest - no swelling S1S2 2/6 Systolic Murmur CTA B No C/C/E Warm and perfusing Results & Data Vital Signs (Past 12 Hours) Vital Signs Temp Pulse Resp BP Pulse Ox Pulse Ox O2 Del Method 01/10/24 05:06 93 H 20 181/93 H 94 Nasal Cannula 01/10/24 03:06 94 H 14 170/97 H 92 Nasal Cannula 01/10/24 02:07 95 H 17 176/90 H 95 Nasal Cannula 01/10/24 02:00 95 01/10/24 00:06 89 20 148/69 H 94 Nasal Cannula 01/09/24 23:30 80 01/09/24 22:06 88 18 159/89 H 93 Nasal Cannula 01/09/24 20:07 87 18 154/91 H 93 Nasal Cannula 01/09/24 20:00 Nasal Cannula 01/09/24 19:36 18 152/84 H 94 Nasal Cannula 01/09/24 19:21 36.5 C 20 164/90 H 93 Nasal Cannula O2 Del Method O2 Flow Rate O2 Flow Rate 01/10/24 05:06 2 01/10/24 03:06 2 01/10/24 02:07 2 01/10/24 02:00 Nasal Cannula 2 01/10/24 00:06 2 01/09/24 23:30 01/09/24 22:06 2 01/09/24 20:07 2 01/09/24 20:00 2 01/09/24 19:36 2 01/09/24 19:21 2 Laboratory Results CBC 01/10/24 Range/Units 03:58 WBC 4.94 (4.8-10.8) K/ul RBC 3.96 L (4.70-6.10) M/uL Hgb 12.2 L (14.0-18.0) g/dl Hct 35.5 L (42.0-52.0) % Plt Count 130 (130-400) K/uL Comprehensive Metabolic Panel 01/10/24 Range/Units 03:58 Sodium 134 L (136-145) mmol/L Potassium 4.0 (3.5-5.1) mmol/L Chloride 102 (98-107) mmol/L Carbon Dioxide 22 (21-32) mmol/L BUN 16 (6-23) mg/dl Creatinine 1.00 (0.6-1.4) mg/dl Glucose 90 (70-99(Fasting)) mg/dl Calcium 9.4 (8.6-10.3) mg/dl Intake and Output 01/09/24 01/10/24 01/10/24 22:59 06:59 14:59 Intake Total 50 / 285.417 Output Total 825 / 1750 675 / 1750 Balance -775 / -1464.583 -675 / -1464.583 Intake: IV 0 / 235.417 niCARdipine 25 mg In Sodium 0 / 235.417 Chloride 0.9% 240 ml @ 0 MG/HR IV .Q0M [facility] Rx#:[id number] Oral 50 / 50 Output: Urine Amount (Catheter) 825 / 1750 675 / 1750 Farrell/Indwelling 825 / 1750 675 / 1750 Other: Weight 85.2 kg Weight Measurement Method Built in [facility] Diagnostic Findings ECHOcardiogram: 01-09-2024 LVEF 60-65% No WMA Severe concentric LVH Diastolic dysfunction Aortic valve - mild TR - mild PH - PASP 65mmHg Dilated IVC Medications Administered Current Inpatient Medications Acetaminophen (Acetaminophen 500 Mg Tab) 500 mg PO BID [facility] Stop: 02/07/24 21:59 Last Admin: 01/09/24 21:38 Dose: 500 mg Amlodipine Besylate (Amlodipine Besylate 5 Mg Tab) 5 mg PO [facility] Stop: 02/09/24 08:59 Last Admin: 01/10/24 05:47 Dose: 5 mg Duloxetine HCl (Duloxetine Hcl 60 Mg Cap) 60 mg PO [facility] Stop: 02/08/24 08:59 Last Admin: 01/09/24 09:45 Dose: 60 mg Finasteride (Finasteride 5 Mg Tab) 5 mg PO [facility] Stop: 02/08/24 08:59 Last Admin: 01/09/24 09:46 Dose: 5 mg Levothyroxine Sodium (Levothyroxine Sodium 75 Mcg Tablet) 75 mcg PO DAILYBB [facility] Stop: 02/08/24 06:29 Last Admin: 01/10/24 06:36 Dose: 75 mcg Meclizine HCl (Meclizine Hcl 25 Mg Tab) 25 mg PO TID PRN PRN Reason: DIZZY Stop: 02/07/24 21:23 Last Admin: 01/09/24 09:46 Dose: 25 mg Multivitamins (Multivitamin Tab) 1 tab PO [facility] Stop: 02/08/24 08:59 Last Admin: 01/09/24 09:45 Dose: 1 tab Pantoprazole Sodium (Pantoprazole 40 Mg Tab) 40 mg PO [facility]; Protocol Stop: 02/08/24 08:59 Last Admin: 01/09/24 09:45 Dose: 40 mg Rosuvastatin Calcium (Rosuvastatin Calcium 10 Mg Tab) 10 mg PO QDL [facility] Stop: 02/08/24 11:29 Last Admin: 01/09/24 10:54 Dose: 10 mg Tamsulosin HCl (Tamsulosin Hcl 0.4 Mg Cap) 0.4 mg PO M [facility] Stop: 02/08/24 08:59 Last Admin: 01/09/24 09:45 Dose: 0.4 mg Vitamin D (Cholecalciferol 25 Mcg (1000 Units) Tab) 25 mcg PO QPM [facility] Stop: 02/07/24 21:59 Last Admin: 01/09/24 21:39 Dose: 25 mcg
--- NOTE | 2024-01-10 12:25 | XRay Report ---
XR chest 1V portable CLINICAL HISTORY: status post PPM COMPARISON STUDY: Chest radiograph January 08, 2024. FINDINGS: There is no pneumothorax placement of a dual-lead left subclavian pacer. Lead tips project over the right atrial appendage and right ventricle. Low lung volumes are noted. Bibasilar opacities favor atelectasis. Mild interstitial thickening is unchanged. There is no pleural effusion. IMPRESSION: 1. No pneumothorax placement of a dual-lead left subclavian pacemaker. 2. Cardiomegaly. Pulmonary vascular congestion. ACT 112: Negative or not required by law. Electronically signed by: Kyrie Wolfe M.D. 01/10/2024 12:23 PM
--- NOTE | 2024-01-10 12:53 | Hospitalist Progress Note ---
Date of Service January 10, 2024 Assessment & Plan (1) Heart block AV third degree: (2) Recurrent falls: (3) Dysphagia: (4) HTN (hypertension): (5) Anxiety and depression: (6) Chronic kidney disease, stage 3: (7) Hypothyroidism: (8) Prostate cancer: (9) BPH (benign prostatic hyperplasia): (10) Sleep apnea: Plan Mr. Jett is an 88-year-old male with past medical history of HTN, aortic stenosis, cerebellar hemorrhage, traumatic subdural hematoma, ABDI, DM type II, hypothyroidism, GERD, prostate cancer, and cognitive impairment presented to the ICU with bradycardia with Mobitz type II heart block, currently with heart rate in the 40s. Patient now s/p pacemaker 01/08 Patient doing well post operatively. Titrating medications and awaiting PT/OT #Third degree heart block s.p pacemaker EKG with HR 47 bpm with AV dissociation, s/p device 01/08 by Robert Discontinue Toprol Discussed with Dr. Barbour for cardiology -Downgrade to PCU -device clearance per Cards TSH WNL, K >4, Mg 1.6 -> replacing, lyme screen negative CXR with dual lead left pacer in place #Recurrent falls: Weakness 2/2 above Fall precautions PT/OT ordered #Dysphagia: Schatzki ring, empiric dilation in 2020 without relief. On a soft, slippery diet per February GI note #HTN (hypertension): Holding Toprol given AV kun dysfunction as above increase amlodipine 10mg daily start furosemide 20mg daily # Anxiety and depression: Stable. Continue duloxetine #Chronic kidney disease, stage 3: Cr 1.1, at baseline Monitor with daily BMP #hypothyroidism: Continue levothyroxine #Prostate cancer: #BPH (benign prostatic hyperplasia): Continue finasteride, tamsulosin, bladder scan and straight cath PRN Follows with [facility] # Sleep apnea: CPAP HS DVT Ppx: SCDs Code status: FULL PCP: Riky Dispo: Admitted to ICU downgraded to PCU Admission and Anticipated Discharge Date Admission Date: January 08, 2024 Subjective NAEO Reports no pain at incision site, reports feeling tired and wants smart out Denies any other symptoms at time of exam Physical Exam Constitutional: WD/WN, vitals as above Respiratory: normal respiratory effort, lungs clear to auscultation Cardiovascular: incision site with bandage in place Results & Data Results & Data Vital Signs (Past 12 Hours) Vital Signs Pulse Resp BP Pulse Ox Pulse Ox O2 Del Method O2 Del Method 01/10/24 12:13 115/74 93 Room Air 01/10/24 12:11 109 H 27 H 01/10/24 11:00 105 H 19 01/10/24 10:06 105 H 20 91 Nasal Cannula 01/10/24 10:06 154/95 H 01/10/24 10:06 154/95 H 01/10/24 09:06 155/80 H 01/10/24 09:06 155/80 H 01/10/24 09:00 113 H 14 93 01/10/24 08:18 108 H 17 92 01/10/24 08:06 174/97 H 01/10/24 08:06 174/97 H 01/10/24 07:21 96 H 17 93 01/10/24 07:18 104 H 12 92 01/10/24 06:57 103 H 11 L 92 01/10/24 05:06 93 H 20 181/93 H 94 Nasal Cannula 01/10/24 03:06 94 H 14 170/97 H 92 Nasal Cannula 01/10/24 02:07 95 H 17 176/90 H 95 Nasal Cannula 01/10/24 02:00 95 Nasal Cannula O2 Flow Rate O2 Flow Rate 01/10/24 12:13 01/10/24 12:11 01/10/24 11:00 01/10/24 10:06 2 01/10/24 10:06 01/10/24 10:06 01/10/24 09:06 01/10/24 09:06 01/10/24 09:00 01/10/24 08:18 01/10/24 08:06 01/10/24 08:06 01/10/24 07:21 01/10/24 07:18 01/10/24 06:57 01/10/24 05:06 2 01/10/24 03:06 2 01/10/24 02:07 2 01/10/24 02:00 2 Laboratory Results Short CBC 01/10/24 Range/Units 03:58 WBC 4.94 (4.8-10.8) K/ul Hgb 12.2 L (14.0-18.0) g/dl Hct 35.5 L (42.0-52.0) % Plt Count 130 (130-400) K/uL BMP 01/10/24 03:58 Sodium 134 L Potassium 4.0 Chloride 102 Carbon Dioxide 22 BUN 16 Creatinine 1.00 Glucose 90 Calcium 9.4 Medications Administered Home Medications Medication Instructions Recorded Confirmed Last Taken cholecalciferol (vitamin D3) 25 1,000 unit PO QPM 08/21/18 01/08/24 01/07/24 mcg (1,000 unit) tablet (Vitamin D3) levothyroxine 75 mcg tablet 75 mcg PO QA 08/21/18 01/08/24 01/07/24 multivitamin 1 tab PO QA 08/21/18 01/08/24 01/07/24 nitroglycerin 0.4 mg sublingual 0.4 mg sublingual UD PRN Angina 08/21/18 01/08/24 08/22/18 12:00 tablet omeprazole 20 mg tablet,delayed 20 mg PO [facility] 08/21/18 01/08/24 01/07/24 release tamsulosin 0.4 mg capsule 0.4 mg PO [facility] 08/21/18 01/08/24 01/07/24 finasteride 5 mg tablet 5 mg PO [facility] 10/02/19 01/08/24 01/07/24 acetaminophen 500 mg tablet 500 mg PO BID 02/23/22 01/08/24 01/07/24 duloxetine 60 mg capsule,delayed 60 mg PO [facility] 02/23/22 01/08/24 01/07/24 release sprinkle rosuvastatin 10 mg tablet 10 mg PO QPM 02/23/22 01/08/24 01/08/24 B12 Active 1,000 mcg PO DAILY 07/19/23 01/08/24 01/07/24 meclizine 25 mg tablet 25 mg PO BID PRN DIZZY 07/19/23 01/08/24 01/06/24 metoprolol succinate 25 mg 25 mg PO DAILY 01/08/24 01/08/24 01/08/24 tablet,extended release 24 hr (Toprol XL) Active Medications Generic Name Dose Route Start Last Admin Trade Name Freq PRN Reason Stop Dose Admin Acetaminophen 500 mg 01/08/24 22:00 01/10/24 10:37 Acetaminophen 500 Mg Tab PO 02/07/24 21:59 500 mg BID [facility] Administration Duloxetine HCl 60 mg 01/09/24 09:00 01/10/24 10:33 Duloxetine Hcl 60 Mg Cap PO 02/08/24 08:59 60 mg QAM [facility] Administration Finasteride 5 mg 01/09/24 09:00 01/10/24 10:33 Finasteride 5 Mg Tab PO 02/08/24 08:59 5 mg QAM [facility] Administration Furosemide 20 mg 01/10/24 13:00 01/10/24 14:32 Furosemide 20 Mg Tab PO 02/09/24 12:59 20 mg QAM [facility] Administration Levothyroxine Sodium 75 mcg 01/09/24 06:30 01/10/24 06:36 Levothyroxine Sodium 75 Mcg Tablet PO 02/08/24 06:29 75 mcg DAILYBB [facility] Administration Meclizine HCl 25 mg 01/08/24 21:24 01/09/24 09:46 Meclizine Hcl 25 Mg Tab PO 02/07/24 21:23 25 mg TID PRN Administration DIZZY Multivitamins 1 tab 01/09/24 09:00 01/10/24 10:33 Multivitamin Tab PO 02/08/24 08:59 1 tab QAM [facility] Administration Pantoprazole Sodium 40 mg 01/09/24 09:00 01/10/24 10:32 Pantoprazole 40 Mg Tab PO 02/08/24 08:59 40 mg QAM [facility]ATH[facility] Administration Protocol Rosuvastatin Calcium 10 mg 01/09/24 11:30 01/10/24 10:33 Rosuvastatin Calcium 10 Mg Tab PO 02/08/24 11:29 10 mg QDL [facility] Administration Tamsulosin HCl 0.4 mg 01/09/24 09:00 01/10/24 10:33 Tamsulosin Hcl 0.4 Mg Cap PO 02/08/24 08:59 0.4 mg QAM [facility] Administration Vitamin D 25 mcg 01/08/24 22:00 01/09/24 21:39 Cholecalciferol 25 Mcg (1000 Units) Tab PO 02/07/24 21:59 25 mcg QPM [facility] Administration
--- NOTE | 2024-01-10 13:03 | XRay Report ---
XR chest 1V portable HISTORY: 88 years-old Male S/P PPM. Please remove telem. leads per Dr. Barbour COMPARISON: 01/10/2024 TECHNIQUE: AP view of the chest FINDINGS: Cardiac silhouette is mildly enlarged. Dual lead left subclavian pacer appears unremarkable. Pulmonar y vascular congestion without pneumothorax, pleural effusion or airspace consolidation. IMPRESSION: Dual-lead left subclavian pacer is in place. No pneumothorax. ACT 112: Negative or not required by law. The above report was generated using voice recognition software. It may contain grammatical, syntax o r spelling errors. Electronically signed by: Boyd Domingo M.D. 01/10/2024 1:02 PM
[2024-01-10] MEDS: POTASSIUM CHLORIDE CRTAB 20 MEQ TABCR PO STA (13:13)
[2024-01-10] MEDS: FUROSEMIDE 40 MG/4 ML VIAL IV ONE (13:13)
[2024-01-10] MEDS: amLODIPine BESYLATE 5 MG TAB PO ONE (13:13)
[2024-01-10] MEDS: FUROSEMIDE 20 MG TAB PO SCH (14:32)
--- OUTSIDE RECORDS SUMMARY | 2024-01-11 03:46 | External Medical Summary | Summary of Care ---
Author Name Unknown Organization [facility] Address [address] [facility] [place] [address] Phone [phone] Care Team Providers Care Accounting Recruiter Name Role Phone Jonathan Lan MD Primary Care Provider [phone] Encounter Details Date Type Department Care Team (Late st Contact Info) Description 09/25/2023 Telephone [facility] [address] [place] [address] Jonathan Lan MD [address] [place] [address] Allergies Active Allergy Reactions Criticality [...] as of this encounter (statuses as of 12/25/2023) Medications MULTIVITAMINS PO TABS daily Active VITAMIN D 1000 UNITS PO TABS 1 tab daily Acti ve Acetaminophen 500 MG Oral Tablet Take 1 Tablet by mouth every 6 hours as needed. Active Vitamin B12 1000 MCG Oral Tablet Extended ReleaseIndicatio ns:Vitamin B12 deficiency Take one daily 08/24/19 23 Active Metoprolol Succinate ER 25 MG Oral Tablet Extended Release 24 Hour (toPROL XL)Indications:H TN, goal below 140/90 Take 1 Tablet by mouth in the morning. 90 Tablet 3 05/08/19 24 Active Meclizine HCl 25 MG Oral Tablet (Antivert)Indica tions:Vertigo Take 1 Tablet by mouth 3 times a day as needed for Dizziness. 90 Tablet 1 05/11/19 24 Active OneTouch Verio In Vitro Strip (Glucose Blood) Use up to 4 times a day E11.9 100 Strip 11 05/15/19 24 Active OneTouch UltraSoft Lancets Use as directed 4 times a day as needed for Hypoglycemia (low sugar) or Hyperglycemia (high sugar). Use up to four times a day as directed 100 Each 2 05/15/19 24 Active Blood Glucose Test In Vitro StripIndications :Diabetes mellitus without complication (HCC) Check glucose daily E 11.9 100 Strip 3 05/14/19 24 Active LancetsIndicatio ns:Diabetes mellitus without complication (HCC) Use as directed- once daily E11.9 100 Each 3 05/14/19 24 Active OneTouch Verio w/Device KitIndications:D iabetes mellitus without complication (HCC) Use once daily E11.9 1 Kit 05/14/19 24 Active Pregabalin 50 MG Oral Capsule (Lyrica)Indicati ons:Right-sided low back pain with right-sided sciatica, unspecified chronicity 1 cap daily x 2 weeks then 1 cap twice daily 60 Capsule 5 06/27/19 24 Active Additional Information Patient not taking.Reported on 10/31/2023 Omeprazole 20 MG Oral Capsule Delayed Release (PriLOSEC)Indica tions:Esophagiti s TAKE 1 CAP BY MOUTH DAILY. 1 HOUR BEFORE THE FIRST MEAL OF THE DAY 90 Capsule 2 07/13/19 24 Active Capsaicin 0.025 % External LotionIndication s:Diabetic peripheral neuropathy (HCC) Apply topically to affected area 2 times a day as needed for Pain, Moderate. 08/03/19 Active Additional Information Patient not taking.Reported on 10/31/2023 CPAP every night at bedtime. 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 02/28/2023 Fall 12/03/2022 Diabetes mellitus without complication 2 Stage 3a chronic kidney disease 12/15/2019 Overview: Per CKD protocol Gastroparesis 03/19/2017 History of adrenal insufficiency 08/23/2016 Radiation proctitis 06/29/2016 Lumbago 11/27/2014 Hip joint replacement status 11/27/2014 Vitamin D deficiency 05/27/2014 Hypothyroidism 04/11/2013 Severe obstructive sleep apnea 12/12/2012 Overview (07/04/2013): 02/2013 -- CPAP auto 13 cwp Split night study 12/05/12 -- AHI of 81, titrated to 10, titration suboptimal Care Plus Oxygen IMPOTENCE, ORGANIC ORIGN 05/27/2012 Left sided sciatica 04/12/2012 Dyslipidemia, goal LDL below 100 06/21/2011 Internal hemorrhoids 02/08/2006 INHIBITED SEX EXCITEMENT 03/18/2004 HTN, goal below 140/90 02/27/2002 Diaphragmatic hernia Esophagitis Overview (11/06/2016): ICD-10 update of inactive term Malignant neoplasm of prostate Cancer Staging:Clinical: Unsigned Primary localized osteoarthrosis, lower leg Overview (03/16/2011): right knee,UOC documented as of this encounter (statuses as of 12/25/2023) Resolved Problems Problem Noted Date Diagnosed Date Resolved Date Subdural hematoma 12/03/2022 05/08/2023 Prediabetes 03/20/2017 11/18/2020 Overview: Per Prediabetes protocol #1 Eczema 04/19/2016 08/02/2016 Kidney disease, chronic, sta ge III (GFR 30-59 ml/min) 07/12/2015 12/18/2019 Overview: Per CKD protocol #1 DM type 2, goal: symptom mgmt 02/13/2013 08/23/2016 Cerebellar hemorrhage, acute 11/01/2011 05/08/2023 CKD (chronic kidney disease), stage III 02/21/2011 04/20/2014 Overview (09/21/2011): gfr 54.1 Other specified hypothyroidism 04/26/2006 06/27/2017 ADVANCE DIRECTIVE INFORMATION 03/28/2005 12/10/2023 Overview (03/28/2005): No, Advance Directive brochure given to patient at prior appointment. Tobacco use disorder 03/18/2004 012 Viral warts 11/15/2010 Overview (11/06/2016): ICD-10 update of inactive term IMPOTENCE, ORGANIC ORIGN Obstructive sleep apnea 02/05 Overview (11/06/2016): ICD-10 update of inactive term Generalized osteoarthritis 0 02/21/2013 Other seborrheic keratosis 0 08/02/2016 Adrenal insufficiency 2016 documented as of this encounter (statuses as of 12/25/2023) Immunizations Name Administration Dates Next Due COVID-19 mRNA, LNP-s, No Pre serve, 2-Dose Series (Path) 01/18/2021,05/13/2020,04/22/2020 Pneumococcal Conjugate Vacc, 13 Valent (Prevnar) 05/27/2014 Pneumococcal Polysaccharide PPV23 (Pneumovax) 06/19/2014 Season Influenza, Quad, PF, Adjuvanted, 65+ Yrs, IM (FLUAD) 11/28/2019 Seasonal Influenza Vac., MDV , IM, 0.5 mL (Fluzone) 11/14/2013,11/12/2012,11/02/2011,11/15,11/11/2009,10/21/2008,11/26/2007 ,11/22/2006,12/16/2005 Seasonal Influenza, PF, 6 M & above, IM , (FluLaval or Fluzone) 11/05/2017,11/07/2016 Seasonal Influenza, Quadriva lent Hd (Fluzone Hd) 12/05/2022,12/21/2021,11/25/2020 Seasonal Influenza, Quadriva lent, No Preserve, IM 11/16/2015,11/27/2014 Seasonal Influenza, Trivalen t, Adjuvanted, 65+ YRS, PF, (Fluad) 11/19/2018 TD - Tetanus/Diptheria (ADULT) 09/07/2005 TDAP [...] Date Recorded PHQ Adult Total Score 0 07/26/2023 Hunger Vital Sign Answer Date Recorded Within the past 12 months, y ou worried that your food would run out before you got the money to buy more. Never true Within the past 12 months, t he food you bought just didn't last and you didn't have money to get more. Sometimes true 12/2023 Childcare Answer Date Recorded Do you feel overwhelmed with taking care of a child, family member or friend? No 08/16/2023 Does your family need help f inding childcare? (Household - for ages 0-17 years) Not on file 08/16/2023 Clothing Answer Date Recorded Have you been unable to get clothing when it was really needed? No 08/16/2023 Is your family able to get c lothes or diapers when needed? (Household - for ages 0-17 years) Not on file 08/16/2023 Personal Safety Answer Date Recorded Do you feel unsafe or have concerns for your saf ety? No 08/16/2023 Do you have concerns for you r family's safety? (Household - for ages 0-17 years) Not on file 08/16/2023 Utilities Answer Date Recorded Do you have trouble paying y our heating, water, or electric bill? No 08/16/2023 Is your family able to pay t he heat, water, or electric bill? (Household - for ages 0-17 years) Not on file 08/16/2023 Does your family have access to good internet? (Household - for ages 0-17 years) Not on file 08/16/2023 Employment Status Answer Date Recorded Are you unemployed or without regular income? No 08/16/2023 Does the household have a [facility] source [facility] income? (Household - for ages 0-17 years) Not on file 08/16/2023 Social Connections Answer Date Recorded How often do you feel lonely or isolated from th ose around you? Never 08/16/2023 Financial Resource Strain Answer Date R ecorded Do you have any trouble payi ng for your medications, or do you think you might in the future? No 08/16/2023 Does your family have troubl e paying for medicine? (Household - for ages 0-17 years) Not on file 08/16/2023 Transportation Needs Answer Date Record ed READ ONLY Do you have troubl e getting a ride to medical visits or work? Never True 08/16/2023 Does your family have a hard time getting a ride to doctors visits? (Household - for ages 0-17 years) Not on file 08/16/2023 Has lack of transportation k ept you from medical appointments, meetings, work, or from getting things needed for daily living? Check all that apply. No 08/16/2023 Do you (or your family) have trouble finding or paying for a ride (transportation)? (Household - for ages 0-17 years) Not on file 08/16/2023 Housing Stability Answer Date Recorded Do you currently live in a s helter or have no steady place to sleep at night? No 08/16/2023 READ ONLY Do you think you a re at risk of becoming homeless? No 08/16/2023 Does your family worry about paying for your home or becoming homeless? (Household - for ages 0-17 years) Not on file 0 08/16/2023 Are you homeless or worried that you might be in the future? No 08/16/2023 Are you (or your family) pilar eless or worried that you might be in the future? (Household - for ages 0-17 years) Not on file Food Insecurity Answer Date Recorded Do you need food for this week? Yes 08/16/2023 Are you able to get enough f ood for your family? (Household - for ages 0-17 years) Not on file 08/16/2023 Does your family need food t his week? (Household - for ages 0-17 years) Not on file 08/16/2023 Do you always have enough fo od for your family? 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 Answer Date of Assessment Author Yes 12/03/2022 12:20 PM Imelda Ahumada LPN * Are you blind or do you have serious difficulty seeing, even when wearing glasses? Answer Date of Assessment Author No 12/03/2022 12:20 PM Imelda Ahumada LPN * Does this person have serious difficulty walking or climbing stairs? Answer Date of Assessment Author Yes 12/03/2022 1:02 PM Imelda Ahumada LPN * Do you have difficulty dressing or bathing? (5 years old or older) Answer Date of Assessment Author No 12/03/2022 12:20 PM EDT Imelda Laguerre LPN * Because of a physical, mental, or emotional condition, do you have difficulty doing errands alone such as visiting a doctors office or shopping? (15 years old or older) Answer Date of Assessment Author Yes 12/03/2022 12:20 PM EDT Imelda Laguerre LPN documented as of this encounter Mental Status * Because of a physical, mental, or emotional condition, do you have serious difficulty concentrating, remembering, or making decisions? (5 years old or older) Answer Entry Date Author No 12/03/2022 12:20 PM EDT Imelda Laguerre LPN documented in this encounter Miscellaneous Notes * Telephone Encounter - Dara Lema LPN - 09/25/2023 11:28 AM EDT Received a fax from [facility], a plan of care for the patient requesting physician signature.Placed in providers box for review. documented in this encounter Plan of Treatment Upcoming Encounters Date Type Department Care Team (Latest Contact Info) Description 4 1:00 PM EST Office Visit Neurology [facility] [address] [facility] [place] [address] Riya Mendez MD [address] [facility] [place] [address] 4 12:35 PM EST Hospital Encounter OR [facility], Operating Room, [facility] - 4th Floor [address] [place] [phone] Yasmin Palma DO [address] [place] [address] 4 12:35 PM EST - 4 1:05 PM EST Surgery OR [facility], Operating Room, [facility] - 4th Floor [address] [place] [phone] Yasmin Palma DO [address] [facility] [place] [address] ESOPHAGOGASTRODUODENOSCOPY (EGD), FLEXIBLE, TRANSORAL, DIAGNOSTIC 5 2:00 PM EST Telemedicine Sleep Disorders Ctr [facility] [address] [facility] [place] [phone] Rupali Cedillo CRNP [address] [facility] [place] [address] 5 2:00 PM EDT Nurse Only Ancillary Department, [address] [place] [address] [place], Nurse [facility] [address] [place] [address] 5 2:00 PM EDT Office Visit Family Practice, [address] [place] [address] Jonathan Lan MD [address] [place] [address] 5 3:00 PM EDT Office Visit Urology, [facility] [address] [facility] [place] [address] Ronan Tejada MD [address] [place] [address] Scheduled Procedures Name Priority Associated Diagnoses Date/Ti me ESOPHAGOGASTRODUODENOSCOPY ( EGD), FLEXIBLE, TRANSORAL, DIAGNOSTIC Dysphagia 01/24/2024 12:35 PM EST COLONOSCOPY FLEXIBLE PROXIMA L DIAGNOSTIC Recall Inflammatory polyps of colon with rectal bleeding Diverticulosis COLONOSCOPY FLEXIBLE PROXIMA L DIAGNOSTIC Recall H/O colonoscopy Health Maintenance Due Date Last Done Comments CKD PHOS USE SMARTSET 32720 09/20/2022 08/1 07/2021, 01/18/2021, 06/23/2019, Additional history exists AAA Monitoring 12/04/2023 12/03/2022, 06/23/2019 CKD HGB USE SMARTSET 12864 02/13/202402/12, 02/12/2023, 12/13/2022, Additional history exists Adult Wellness Visit 04/10/2024 04/11/2023, 03/13/2022, 03/08/2021 Diabetic Foot Exam 04/10/2024 04/11/2023, 0 03/13/2022, 11/07/2016, Additional history exists Diabetic Eye Exam 04/23/2024 04/24/2023, , 11/25/2020, Additional history exists HbA1c 04/29/2024 10/31/2023, 06/06, 12/12/2019, Additional history exists Depression Screening 07/25/2024 07/26/2023 Albumin/Creatinine Ratio 10/30/2024 024, 06/26/2022, 06/10/2018, Additional history exists TSH 10/30/2024 10/31/2023, 06/06, 09/20/2021, Additional history exists Zoster Vaccines (1 of 2) 10/30/2024 Pos tponed from 1986 (Patient Declined After Education) DTap/Tdap Vaccines (3 - Td or Tdap) 12/03/2032 12/03/2022, 11/03/2014, 09/07/2005, Additional history exists Pneumococcal Vaccine: 65+ Years Completed 06/19/2014, 05/27/2014, 09/18/2003 COVID-19 Vaccine Discontinued 01/18/2021, 02/2020, 05/13/2020, Additional history exists Influenza Vaccine (FLU shot) Completed 10/31/2023, 12/05/2022, 12/21/2021, Additional history exists HPV (Gardasil) Vaccine Aged Out No lo nger eligible based on patient's age to complete this topic Hepatitis B Vaccine Aged Out No longe r eligible based on patient's age to complete this topic MENINGOCOCCAL (MENACTRA/MENVEO) Aged Out No longer eligible based on patient's age to complete this topic documented as of this encounter Medical Devices Not on filedocumented as of this encounter Advance Directives * Full Code [...] Power of Attor aimee? No Care Teams Accounting Recruiter Relationship Specialty Start Date End Date Jonathan Lan MD [address] [place] [address] PCP - General Family Medicine 08/15/12 documented as of this encounter
--- OUTSIDE RECORDS SUMMARY | 2024-01-11 03:47 | External Medical Summary | Summary of Care ---
Author Name Unknown Organization [facility] Address [address] [facility] [place] [address] Phone [phone] Care Team Providers Care Works Manager Name Role Phone Jonathan Lan MD Primary Care Provider Reason for Visit * Reason Onset Date Comments Advice 09/19/2023 Encounter Details Date Type Department Care Team (Late st Contact Info) Description 09/19/[address] [facility] [address] [place] [address] Jonathan Lan MD [address] [place] [address] Advice Allergies Active Allergy Reactions [...] as of this encounter (statuses as of 12/19/2023) Medications MULTIVITAMINS PO TABS daily Active VITAMIN [...] OF THE DAY 90 Capsule 2 07/13/19 Active Capsaicin 0.025 % External LotionIndication s:Diabetic [...] IN THE MORNING 90 Tablet 3 09/14/19 Active documented as of this encounter (statuses as of 12/19/2023) Active Problems Problem Noted Date Diagnosed Date [...] as of this encounter (statuses as of 12/19/2023) Resolved Problems Problem Noted Date Diagnosed Date [...] as of this encounter (statuses as of 12/19/2023) Immunizations Name Administration Dates Next Due COVID-19 [...] No 08/16/2023 Does the household have a [facility] source of income? 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 No other injuries. JUST FYI for provider. * Telephone Encounter - Theresa Marcum OSA - 09/19/2023 12:49 PM EDT Lorri from called and would like to let the doctor know that pt had a fell on 09/18/23. Pt. Had vision on his elbow. documented in this encounter Plan of Treatment Upcoming Encounters Date Type Department Care Team (Latest Contact Info) Description 4 1:00 PM EST Office Visit Neurology [facility] [address] [place] [address] Riya eMndez MD [address] [place] [address] 4 12:35 PM EST Hospital Encounter OR [facility], Operating Room, [facility] - 4th Floor [address] [place] [phone] Yasmin Palma, DO [address] [place] [address] 4 12:35 PM EST - 4 1:05 PM EST Surgery OR [facility], Operating Room, [facility] - 4th Floor [address] [place] [phone] Yasmin Palma, DO [address] [place] [address] ESOPHAGOGASTRODUODENOSCOPY (EGD), FLEXIBLE, TRANSORAL, DIAGNOSTIC 5 2:00 PM EST Telemedicine Sleep Disorders Ctr [facility] [address] [facility] [place] [phone] Rupali Cedillo CRNP [address] [place] [address] 5 2:00 PM EDT Nurse Only [facility] [address] [facility] [place] [address] [place], Nurse [facility] [address] [facility] [facility] [address] [place] [address] 5 2:00 PM EDT Office Visit Family Practice, [facility] [address] [facility] [place] [address] Jonathan Lan MD [address] [facility] [place] [address] 5 3:00 PM EDT Office Visit [facility], [facility] [place] [address] Ronan Tejada MD [address] [place] [address] Scheduled Procedures Name Priority Associated Diagnoses Date/Ti me ESOPHAGOGASTRODUODENOSCOPY ( EGD), FLEXIBLE, TRANSORAL, DIAGNOSTIC Dysphagia 01/24/2024 12:35 PM EST COLONOSCOPY FLEXIBLE PROXIMA L DIAGNOSTIC Recall Inflammatory polyps of colon with rectal bleeding Diverticulosis COLONOSCOPY FLEXIBLE PROXIMA L DIAGNOSTIC Recall H/O colonoscopy Health Maintenance Due Date Last Done Comments CKD PHOS USE SMARTSET 30732 09/20/202209/05, 01/18/2021, 06/23/2019, Additional history exists AAA Monitoring 12/04/2023 12/03/2022, 06/23/2019 CKD HGB USE SMARTSET 68697 02/13/202402/12, 02/12/2023, 12/13/2022, Additional history exists Adult [...] Power of Attor aimee? No Care Teams Works Manager Relationship Specialty Start Date End Date Jonathan Lan MD [address] [place] [address] PCP - General Family Medicine 08/15/12 documented as of this encounter
[2024-01-11 06:39] LABS: Hematocrit (blood only) 37.1 % (42.0-52.0); Hemoglobin 13.1 g/dl (14.0-18.0); Mean Corpuscular Hemoglobin 31.7 pg (25.0-34.0); Mean Corpuscular Hgb Conc 35.3 g/dL (32.0-36.0); Mean Corpuscular Volume 89.8 fL (80.0-100.0); Mean Platelet Volume 11.8 fL (9.4-12.4); Platelet Count 146 K/uL (130-400); RDW Coefficient of Variation 12.5 % (11.5-14.5); RDW Standard Deviation 41.2 fL (36.4-46.3); Red Blood Count 4.13 M/uL (4.70-6.10); White Blood Count 6.49 K/ul (4.8-10.8)
[2024-01-11] MEDS: amLODIPine BESYLATE 5 MG TAB PO SCH (07:59)
[2024-01-11 09:12] LABS: BUN Creatinine Ratio 20.2 (10-20); Calcium 9.7 mg/dl (8.6-10.3); Creatinine Clr Calc Pharmacy 49.4 ml/min
--- NOTE | 2024-01-11 10:37 | Discharge Summary ---
Discharge Summary Date of Service January 11, 2024 Principal Dx & Hospital Course #1 = Principal Diagnosis (1) Heart block AV third degree: (2) Recurrent falls: (3) Dysphagia: (4) HTN (hypertension): (5) Anxiety and depression: (6) Chronic kidney disease, stage 3: (7) Hypothyroidism: (8) Prostate cancer: (9) BPH (benign prostatic hyperplasia): (10) Sleep apnea: Plan Mr. Jett is an 88-year-old male with past medical history of HTN, aortic stenosis, cerebellar hemorrhage, traumatic subdural hematoma, ABDI, DM type II, hypothyroidism, GERD, prostate cancer, and cognitive impairment presented to the ICU with bradycardia with Mobitz type II heart block, currently with heart rate in the 40s. Patient now s/p pacemaker 01/08 Patient doing well post operatively. Blood pressure better controlled. Patient to go to [facility] for rehab given mobility limited with walker and now with left arm limitations 2/2 pacemaker placement. #Third degree heart block s.p pacemaker EKG with HR 47 bpm with AV dissociation, s/p device 01/08 by Robert Discontinue Toprol Discussed with Dr. Barbour for cardiology TSH WNL, K >4, Mg 1.6 -> replacing, lyme screen negative CXR with dual lead left pacer in place #Recurrent falls: Weakness 2/2 above Fall precautions PT/OT: rehab #Dysphagia: Schatzki ring, empiric dilation in 2020 without relief. On a soft, slippery diet per February GI note #HTN (hypertension): Holding Toprol given AV kun dysfunction as above increase amlodipine 10mg daily start furosemide 20mg daily # Anxiety and depression: Stable. Continue duloxetine #Chronic kidney disease, stage 3: Cr 1.1, at baseline #hypothyroidism: Continue levothyroxine #Prostate cancer: #BPH (benign prostatic hyperplasia): Continue finasteride, tamsulosin, bladder scan and straight cath PRN Follows with [facility] GI # Sleep apnea: CPAP HS Notes For Next Care Provider Medication Changes From Visit Discontinue Toprol Start amlodipine 10mg Start Lasix 20mg daily Admission HPI Per Admitting Provider This is an 88yo M with a PMH of HTN, orthostatic hypotension as per records, valvular heart disease (moderate , mild TR, TTE 2022), cerebellar hemorrhage status post surgery, history traumatic subdural hematoma, ABDI on CPAP, history of adrenal insufficiency as per records, DM II on oral medications, hypothyroidism, chronic anemia (baseline hemoglobin of 12), GERD, radiation proctitis as per records, prostate cancer status post radiation, BPH, chronic back pain, mild cognitive impairment and other medical problems listed below who presents to ED following syncopal episode yesterday. Was admitted in July 2023 with concern for medication induced bradycardia. Lyrica had recently been started and was discontinued. Toprol 50mg was initially held but due to bursts of tachycardia, patient was resumed on lower dose of Toprol 25mg at hime of discharge. Echo at that time showed EF 60-65%, severe concentric LVH, mild aortic stenosis, mild TR. History provided by at bedside due to patient's cognitive impairment. She states he was more weak for the past week. No witnessed falls or syncopal events. No CP. Seems to be SOB with exertion. Has been taking all medications including beta kat. HR has been low at home for past week, per . Patient suzanne CP. Unable to obtain full ROS. Admission Exam Per Admitting Provider General Appearance: WD/WN, vitals as above, NAD, sitting up in bed, pleasantly confused Head: normocephalic, atraumatic Eyes: normal inspection, PERRL, conjunctivae normal, anicteric sclerae ENT: external ear and nose normal, oropharynx normal Neck: normal visual inspection, trachea midline, no thyromegaly Respiratory: normal respiratory effort, lungs clear to auscultation, no wheeze, rales, rhonchi. No accessory muscle use Cardiovascular: bradycardic rate, regular rhythm,normal peripheral pulses, no BLE edema. Vessels: no JVD Chest: normal inspection of chest Abdomen/GI: normal bowel sounds, soft, nontender, no hepatosplenomegaly Extremities/Musculoskeletal: no cyanosis or clubbing, extremities motor strength 5/5 Neurologic: PERRL, EOMI, accommodation nl, no face palsy, no dysarthria, CN's II-XI intact bilaterally and moves all extremities Psychiatric: A+Ox3, euthymic affect Skin: no rashes, normal color, warm/dry Discharge Exam Constitutional WD/WN, vitals as above Respiratory normal respiratory effort, lungs clear to auscultation Cardiovascular RRR, no murmur, no edema device insertion site with clean bandage Updated Medication List Medication Instructions Recorded Confirmed Type cholecalciferol (vitamin D3) 25 1,000 unit PO QPM 08/21/18 01/08/24 History mcg (1,000 unit) tablet (Vitamin D3) levothyroxine 75 mcg tablet 75 mcg PO QAM 08/21/18 01/08/24 History multivitamin 1 tab PO QAM 08/21/18 01/08/24 History nitroglycerin 0.4 mg sublingual 0.4 mg sublingual UD PRN Angina 08/21/18 01/08/24 History tablet omeprazole 20 mg tablet,delayed 20 mg PO QAM 08/21/18 01/08/24 History release tamsulosin 0.4 mg capsule 0.4 mg PO QAM 08/21/18 01/08/24 History finasteride 5 mg tablet 5 mg PO QAM 10/02/19 01/08/24 History acetaminophen 500 mg tablet 500 mg PO BID 02/23/22 01/08/24 History duloxetine 60 mg capsule,delayed 60 mg PO QAM 02/23/22 01/08/24 History release sprinkle rosuvastatin 10 mg tablet 10 mg PO QPM 02/23/22 01/08/24 History B12 Active 1,000 mcg PO DAILY 07/19/23 01/08/24 History meclizine 25 mg tablet 25 mg PO BID PRN DIZZY 07/19/23 01/08/24 History amlodipine 10 mg tablet 10 mg PO QAM 30 days #30 tabs 01/11/24 Rx furosemide 20 mg tablet 20 mg PO QAM 30 days #30 tabs 01/11/24 Rx Hospital Stay Data Consultations 01/08/24 17:30 ED Decision to Admit Stat 01/08/24 19:05 Consult Cardiology Routine 01/08/24 19:11 Consult Retail Greeter Routine Procedures Performed Operation Date: 01/09/24 12:00 Actual Procedures p Pacer with A/V Leads (Dual) - Riya Velázquez DO s Venogram, Unilateral - Riya Velázquez DO Diagnostic Imagining Performed 01/09/24 11:45 EP Lab Images for PACS ONCE Discharge Instructions Given to Patient (Per Discharging Provider) You were admitted for weakness and found to have a complete heart block which means the electricity from the top and bottom part of your heart were not communicating. To fix this, you had a pacemaker placed. You also had elevated blood pressure. You were started on Amlodipine 10mg daily and Furosemide 20mg daily. Please discontinue metoprolol. Device and wound check at [facility] in 10 days-someone will call you to arrange the day and time Total Time Total Time Spent Total Time Spent (In Minutes): 45
[2024-01-11 11:05] VITALS: PULSE 110; RESP 17; TEMP 98.4; O2SAT 92
[2024-01-11] MEDS: LIDOCAINE 5% 1 PATCH TD STA (11:24)
[2024-01-11 13:40] VITALS: BP 127/82
--- NOTE | 2024-01-16 11:34 | Operative Report ---
Post Operative Report DICTATED BY:Riya Velázquez D.O. DATE OF PROCEDURE: 01/09/2024 PREOPERATIVE DIAGNOSES: Complete heart block POSTOPERATIVE DIAGNOSIS: Same PROCEDURE: A dual-chamber rate responsive permanent pacemaker along with a peripheral venogram under fluoroscopic guidance. SURGEON: Riya Velázquez DO ASSISTANTS: None. ANESTHESIA: Monitored conscious sedation administered under my supervision by Lawanda Ahmadi. Start time 12:23, end time 13:21, a total of 2 mg of Versed and 50 mcg of fentanyl. INTRAVENOUS FLUIDS: 0 mL. CONTRAST: 12 mL. ANTIBIOTICS: 2 grams of Ancef. ADDITIONAL MEDICATIONS: None BLOOD LOSS: 50 mL. URINE OUTPUT: Not applicable. SPECIMENS: None. FINDINGS: See below. DRAINS: None. COMPLICATIONS: None. CONDITION: Stable. INDICATIONS: This is a 88-year-old gentleman who has a past medical history HTN, HLD, CVA, Adrenal insufficiency, ABDI on CPAP, Hypothyroidism, Schatzki's ring, Gastritis, prostate cancer, hiatal henia. He was admitted to [facility] after a fall found to be in CHB. The patient was recommended a pacemaker prior to hospital discharge. CONSENT: Consent was obtained prior to the patient going into the electrophysiology lab. The patient's via phone consent was informed of the risks, benefits, and alternatives to the procedure. Risks include, but not limited to, sudden cardiac , cardiac arrhythmias, cerebrovascular accident, myocardial infarction, injury to his blood vessels, chamber of the heart and lung, bleeding and infection. The patient understood these risks and agreed to the procedure as planned. Informed phone consent was obtained and witnessed. DESCRIPTION OF PROCEDURE: The patient was brought into electrophysiology lab in a fasting state. He was connected to continuous cardiac monitoring. A timeout was performed to ensure the patient's identity and procedure correctly. He was prepped and draped in the left infraclavicular space in normal surgical standard fashion. Monitored conscious sedation was given throughout the procedure for the patient's comfort level. [place] precautions were maintained throughout the procedure. Prophylactic antibiotics were given prior to incision. A 20 mL of 1% lidocaine and bupivacaine mixture were given in the left deltopectoral groove. An incision was made in the left deltopectoral groove. Blunt dissection was performed down to the pectoralis muscle. Then, using blunt dissection over the pectoralis muscle within the pectoral fascia, a pacemaker pocket was created. Then, a peripheral venogram was performed to identify the axillary vein. Venous axillary access was obtained through a needlestick without any problems. A guidewire was inserted without any resistance. A 9- [place]ar[place] sheath was inserted over the guidewire without any resistance. Dilator was removed and a second guidewire was inserted through the sheath to allow for retained venous access. Then a 6 [place] sheath was inserted over one of the guidewires. The guidewire and dilator were removed. Then the right atrial pacing lead was temporally plac ed in the RV apex to have back up pacing while positioning the left bundle lead. Then a 9 [place]ar[place] sheath was inserted over the retained guidewire. The guidewire and dilator were removed. Then, the [employer] 3D medium sheath was inserted through the 9-[place]icaraguan sheath over a Glidewire into the right ventricle. The Glidewire and dilator were removed. Then, the left bundle lead was advanced through the sheath and intracardiac electrogram His bundle recordings were estimated when the camera was in ALONZO 10. Once I had an idea where the His bundle is, see below for results, I then moved the camera to ALONZO 30 and marked where the His bundle was on my fluoroscopy screen. I came down about 2 cm from this in a line that would extend out to the apex and then started coming on pacing. Once I found an area where I had a nice W formed pace complex in my lead V1, I then moved the camera to NAVNEET 30. Then the helix was extended into the septum. Then the helix locking tool was placed. Then the lead was screwed further into the septum while pacing by giving slow clockwise turns. The lead was not advancing into the septum so I ultimately switched out to the larger curve sheath as well as used the stiffer stylet. The paced complex changed to a nice R' in V1 and the pacing stim to peak QRS in V6 was good. I then gave contrast through the sheath to see how far the lead was into the septum and then I slit the [employer] 3D medium sheath under fluoroscopic guidance and left the 9-[place]icaraguan sheath in while I positioned the right atrial lead. The right atrial lead screw was retracted. The lead was removed from the RV apex and positioned into right atrial appendage under fluoroscopic guidance. There was adequate pacing and sensing thresholds and no diaphragmatic stimulation with high output pacing. The 6-Nicaraguan sheath was peeled away and the lead was fixated to the pectoralis muscle using 0 silk suture. The 9-[place]icaraguan sheath around the left bundle lead was peeled away and the lead was fixated to pectoralis muscle using 0 silk suture. The pocket was flushed with copious amounts of vancomycin and saline wash and inspected for hemostasis. The leads were then attached to the pulse generator making sure the pins were in appropriate position, passed set screws, and set screws were all tightened. Pulse generator was then placed placed in the pocket, making sure the leads were lying flat beneath the device. The incision was closed in a 3-layer fashion using 2-0 Vicryl interrupted suture, followed by 3-0 Vicryl interrupted suture, followed by 4-0 Monocryl running stitch. Then a primaseal dressing was placed EQUIPMENT: 1. Pulse generator is a [employer] MRI Model Number [id number] SN: [id number] 2. Right atrial lead, [employer] UltiPace LPA 1231 SN: [id number] 3. Left bundle lead, [employer] UltiPace LPA 1231 SN: [id number] INTRAPROCEDURAL FINDINGS: 1. Right atrial lead, P waves 3.5 millivolts, impedance 450 ohms, threshold 0.75 @ 0.5ms 2. Left bundle lead, R waves 8.5 millivolts, impedance 620 ohms, threshold 0.6 volts at 0.5 milliseconds. FINAL MEASUREMENTS THROUGH THE DEVICE: 1. Right atrial lead, P waves 2.3 millivolts, impedance 450 ohms, threshold 0.75 volt at 0.4 milliseconds. 2. Left bundle lead, R waves none pt is dependent, impedance 640 ohms, threshold 1 volts at 0.4 milliseconds. FINAL PARAMETERS: DDDR 60/120, right atrial amplitude 3.5 volts, pulse width 0.4 milliseconds, sensitivity 0.3 millivolts. Left bundle lead amplitude 5 volts, pulse width 0.4 milliseconds, sensitivity 2 millivolts. IMPRESSION: Successful dual chamber rate responsive permanent pacemaker under fluoroscopic guidance all under fluoroscopic guidance secondary to complete heart block PLAN: Monitor the patient post-procedure. A 12-lead ECG, chest x-ray. He is not to lift the left elbow or left shoulder for 1 month. He cannot lift more than 10 pounds with the left arm for 2 weeks. He is to keep the dressing on and dry until his wound check.
== END 2024-01-11 14:09 | DRG 244 ==
LOC: ED 16:18 → 1E 19:05 → SUATTDRO 19:05 → 1E 21:11 → 2S 01-10 19:38

== ENCOUNTER 2024-10-25 21:55 | Inpatient (IN) ==
--- NOTE | 2024-10-25 22:12 | Emergency Department Note ---
History of Present Illness General Chief complaint: Altered Mental Status Stated complaint: AMS, Chest Pain History of Present Illness This 89 yo M with a PMH of HTN, orthostatic hypotension as per records, valvular heart disease (moderate , mild TR, TTE 2022), cerebellar hemorrhage status post surgery, history traumatic subdural hematoma, ABDI on CPAP, history of adrenal insufficiency as per records, DM II on oral medications, hypothyroidism, chronic anemia (baseline hemoglobin of 12), GERD, radiation proctitis as per records, prostate cancer status post radiation, BPH, chronic back pain, mild cognitive impairment presents to the ER for the past few hours with increased confusion per EMS. Patient does not know where he is at. He is able to follow commands and answer questions. EMS states that he was complaining of chest pain so the gave him nitro x 2. He still did not know his name so she called EMS. EMS states vital signs are stable along with the blood sugar. Home Medications Medication Instructions Recorded Confirmed Type cholecalciferol (vitamin D3) 25 1,000 unit PO QAM 08/21/18 10/25/24 History mcg (1,000 unit) tablet (Vitamin D3) levothyroxine 75 mcg tablet 75 mcg PO DAILYBB 08/21/18 10/25/24 History nitroglycerin 0.4 mg sublingual 0.4 mg sublingual Q5W PRN Chest 08/21/18 10/25/24 History tablet Pain omeprazole 20 mg tablet,delayed 20 mg PO QAM 08/21/18 10/25/24 History release tamsulosin 0.4 mg capsule 0.4 mg PO HS 08/21/18 10/25/24 History finasteride 5 mg tablet 5 mg PO QAM 10/02/19 10/25/24 History acetaminophen 500 mg tablet 500 mg PO Q8 PRN Fever >38C Or 02/23/22 10/25/24 History Pain, mild duloxetine 60 mg capsule,delayed 60 mg PO QAM 02/23/22 10/25/24 History release sprinkle rosuvastatin 10 mg tablet 10 mg PO HS 02/23/22 10/25/24 History meclizine 25 mg tablet 25 mg PO TID PRN DIZZY 07/19/23 10/25/24 History cyanocobalamin (vitamin B-12) 1,000 mcg PO QAM 10/25/24 10/25/24 History 1,000 mcg tablet (Vitamin B-12) furosemide 20 mg tablet 20 mg PO 3XWK 10/25/24 10/25/24 History metoprolol succinate 25 mg 25 mg PO AMHS 10/25/24 10/25/24 History tablet,extended release 24 hr vitamin-ferrous sulfate 1 tab PO QAM 10/25/24 10/25/24 History 27 mg iron-folic acid 0.8 mg tablet Allergies Allergy/AdvReac Type Severity Reaction Status Date / Time clindamycin Allergy Unknown unknown--per Verified 01/08/24 20:31 [facility] amoxicillin AdvReac Severe JAUNDICE Verified 01/08/24 20:31 clavulanic acid AdvReac Severe JAUNDICE Verified 01/08/24 20:31 dicyclomine [From Bentyl] AdvReac Intermediate dizziness, Verified 01/08/24 20:31 light headedness isosorbide AdvReac Intermediate PAIN IN Verified 01/08/24 20:31 LIMBS DIARRHEA oxycodone AdvReac Intermediate Confusion Verified 01/08/24 20:31 pregabalin [From Lyrica] AdvReac Intermediate Confusion Verified 01/08/24 20:31 Past Med/Surg History Problem List (Updated 10/26/24 @ 00:44 by Gamal Gonzalez MD) Atypical chest pain Heart block AV third degree (Acute) Drug-induced bradycardia Adverse effects of medication Left bundle branch block (LBBB) (Acute) Abnormal LFTs (Acute 12/26/12) Bronchitis (Acute) Elevated liver function tests (Acute) HTN (hypertension) (Acute 12/26/12) Hyperbilirubinemia (Acute) Post-operative state (Acute) Post-operative state Dysphagia Hematochezia Lumbar stenosis with neurogenic claudication Medical History (Updated 10/26/24 @ 00:44 by Gamal Gonzalez MD) Recurrent falls Dysphagia BPH (benign prostatic hyperplasia) History of shingles over 10 yrs ago History of prostate cancer RADIATION ONLY 2010 Dysphagia Anxiety and depression Spinal stenosis Osteoarthritis Degenerative disc disease Chronic back pain Chronic kidney disease, stage 3 follows with Lis GERD (gastroesophageal reflux disease) History of esophageal dilatation Hypothyroidism Radiation proctitis Hearing deficit Stroke 2011--no deficits, no neurologist Hyperlipidemia Cardiac murmur FOLLOWS WITH DR. HITCHCOCK Sleep apnea cpap Surgical History (Updated 02/11/24 @ 00:07 by Agapito Tellez) History of craniotomy X 2 (AT [facility])---d/t hemorrhagic stroke and for a pseudomeningocele repair History of anesthesia reaction woke up paranoid and last for 3 days after both brain surgeries History of total left hip replacement History of total right hip replacement History of prostate biopsy History of colonoscopy History of esophagogastroduodenoscopy (EGD) History of appendectomy History of phacoemulsification of cataract of both eyes with intraocular lens implantation bilat History of tooth extraction all teeth Family History Mother Family history of diabetes mellitus Other No family history of adverse response to anesthesia Social History Smoking Status: Never smoker Tobacco Type: Cigarettes Second Hand Exposure: No; Do You Dip or Chew Tobacco: No; Hx Alcohol Use: No Hx Substance Use: No Preferred Language: Somali Communication Ability: Impaired Design Coordinator Required: No Beliefs That Will Affect Care: None Current Living Situation: Spouse Feels Safe at Home: Yes Assistive Devices: Cane and Walker Physical Exam Vital Signs Vital Signs - 24 hr 10/25/24 22:04 10/25/24 23:11 Temperature 37.1 C Temperature Source Rectal Pulse Rate 71 Pulse Rate [Finger] 91 H Pulse Rhythm [Finger] Regular Pulse Strength [Finger] Normal Respiratory Rate 22 20 Respiratory Effort / Characteristics Non-Labored Spontaneous Non-Labored Spontaneous Respiratory Depth Normal Normal Respiratory Pattern Regular Regular Blood Pressure 175/95 H Blood Pressure [Right Arm] 139/83 Blood Pressure Mean 121 Blood Pressure Mean [Right Arm] 101 Blood Pressure Position [Right Arm] Lying Pulse Oximetry 98 96 Oxygen Delivery Method Room Air Room Air Sepsis Recent Fever Within 48 Hours No Sepsis New/Unexplained Change in Mental Status N/A Sepsis Action Taken by Nursing No Action Required VITALS: Vitals are noted on the nurse's note and reviewed by myself. Vital signs stable. GENERAL: Pleasant gentleman following commands but does not know his name or worries at, in no acute distress, nondiaphoretic, well-developed well-nourished. SKIN: The skin was without rashes, erythema, edema, or bruising. There is no tenting of the skin. Capillary reflex less than 2 seconds. HEAD: Normocephalic atraumatic. EARS: External auditory canals clear EYES: Pupils equal round and reactive to light and accommodation. Conjunctivae without injection, sclerae without icterus. Extraocular movements intact. NOSE: Patent, no discharge. MOUTH: Mucous membranes moist. Pharynx without erythema or exudate. Uvula midline. Airway patent. Tongue does not deviate. NECK: Supple without nuchal rigidity. No lymphadenopathy. No thyromegaly. Cervical spine is nontender. No JVD. HEART: Regular rate and rhythm LUNGS: Clear to auscultation bilaterally without wheezes, rales or rhonchi. No retractions or accessory muscle use. ABDOMEN: Positive bowel sounds x 4. Normal tympanic percussion. Soft, nontender, without masses or organomegaly. Regalado sign negative. No guarding or rebound tenderness. No CVA tenderness MUSCULOSKELETAL: No muscle atrophy, erythema, or edema noted. NEURO: Patient was alert but not oriented to person place and time. Normal sensation to light and sharp touch. No focal neurological deficits. Course Administered Medications Sodium Chloride (Nss) 1,000 mls @ 60 mls/hr IV .[id number] STA Stop: 10/26/24 16:33 Last Admin: 10/26/24 00:24 Dose: 60 mls/hr Documented By: chanel Discontinued Medications Magnesium Sulfate/Dextrose (Magnesium Sulfate / D5w) 1 gm in 100 mls @ 200 mls/hr IV Q30M HEATHER Stop: 10/25/24 23:50 Last Admin: 10/26/24 00:24 Dose: 200 mls/hr Documented By: chanel Ioversol (Optiray 320 125ml) 119 ml IV ONCE ONE Stop: 10/25/24 22:24 Last Admin: 10/25/24 22:23 Dose: 119 ml Documented By: DHAVAL Ioversol (Optiray 320 125ml) 120 ml IV ONCE ONE Stop: 10/25/24 23:49 Last Admin: 10/25/24 23:48 Dose: 120 ml Documented By: RAMIN Olanzapine (Olanzapine 10 Mg/2.1 Ml Sdv) 5 mg IM NOW STA Stop: 10/25/24 22:40 Last Admin: 10/25/24 22:43 Dose: 5 mg Documented By: ASW Olanzapine (Olanzapine 10 Mg/2.1 Ml Sdv) 2.5 mg IM NOW STA Stop: 10/25/24 23:20 Last Admin: 10/25/24 23:32 Dose: 2.5 mg Documented By: MARY Olanzapine (Olanzapine 10 Mg/2.1 Ml Sdv) 2.5 mg IM NOW STA Stop: 10/26/24 00:16 Last Admin: 10/26/24 00:22 Dose: 2.5 mg Documented By: alt Medical Decision Making Medical Records Attestation: I reviewed the patient's medical records. Home Medications Current Medication List: was personally reviewed by me Laboratory Data Attestation: I reviewed the patient's lab results. 10/25/24 21:50 10/25/24 21:50 Lab Results 10/25/24 10/25/24 10/25/24 Range/Units 21:50 22:01 22:07 WBC 4.65 L (4.8-10.8) K/ul RBC 3.64 L (4.70-6.10) M/uL Hgb 11.0 L (14.0-18.0) g/dl POC Hgb 11.2 L (14.0-18.0) g/dl Hct 32.0 L (42.0-52.0) % POC Hct 33 L (42-52) % MCV 87.9 (80.0-100.0) fL MCH 30.2 (25.0-34.0) pg MCHC 34.4 (32.0-36.0) g/dL RDW Std Deviation 43.1 (36.4-46.3) fL RDW Coeff of Darrick 13.3 (11.5-14.5) % Plt Count 162 (130-400) K/uL MPV 10.7 (9.4-12.4) fL Immature Gran % (Auto) 0.4 % Neut % (Auto) 53.5 % Lymph % (Auto) 26.9 % Mcleod % (Auto) 14.4 % Eos % (Auto) 3.9 % Baso % (Auto) 0.9 % Neut # (Auto) 2.49 (1.40-6.50) K/uL Lymph # (Auto) 1.25 (1.20-3.40) K/uL Mcleod # (Auto) 0.67 H (0.11-0.59) K/uL Eos # (Auto) 0.18 (0.00-0.50) K/uL Baso # (Auto) 0.04 (0.00-0.20) K/uL Immature Gran # (Auto) 0.02 (0.01-0.20) K/uL PT 10.6 (9.0-12.0) Seconds INR 1.0 (0.9-1.1) APTT 27 (21-31) Seconds PTT Ratio 1.0 POC Sodium 139 (135-144) mmol/L Sodium 137 (136-145) mmol/L POC Potassium 3.9 (3.3-5.0) mmol/L Potassium 3.8 (3.5-5.1) mmol/L POC Chloride 104 (101-112) mmol/L Chloride 105 (98-107) mmol/L Carbon Dioxide 23 (21-32) mmol/L POC Total CO2 21 L (24-31) mmol/L Anion Gap 9 (3-11) POC Anion Gap 18.0 (16-25) mmol/L POC BUN 17 (7-18) mg/dl BUN 17 (6-23) mg/dl Creatinine 1.09 (0.6-1.4) mg/dl POC Creatinine 1.1 (0.6-1.3) mg/dl Est Cr Clr Drug Dosing 52.9 ml/min eGFR 65.28 BUN/Creatinine Ratio 15.6 (10-20) Glucose 83 (70-99(Fasting)) mg/dl POC Glucose (other) 84 (70-99) mg/dl Calcium 9.6 (8.6-10.3) mg/dl POC Ioniz Calcium Rakel 1.20 (1.12-1.32) mmol/l Magnesium 1.5 L (1.7-2.4) mg/dl Total Bilirubin 0.6 (0.2-1.0) mg/dl AST 19 (13-39) U/L ALT 14 (7-52) U/L Alkaline Phosphatase 88 (34-104) U/L Troponin I High Sens 9.4 (0-20) pg/ml Total Protein 7.7 (6.0-8.3) gm/dl Albumin 4.0 (3.4-5.0) gm/dl Globulin 3.7 (2.5-4.0) gm/dl Albumin/Globulin Ratio 1.1 (0.9-2) Urine Color Yellow Urine Appearance Clear (Clear) Urine pH 8.0 H (4.5-7.5) Ur Specific [place] 1.011 (1.000-1.030) Urine Protein Negative (Negative) Urine Glucose (UA) Negative (Negative) Urine Ketones Negative (Negative) Urine Blood Negative (Negative) Urine Nitrite Negative (Negative) Urine Bilirubin Negative (Negative) Urine Urobilinogen Negative (Negative) Ur Leukocyte Esterase Negative (Negative) Urine Comment Imaging Data Attestation: I personally reviewed and interpreted this imaging study as follows: Radiologist's Impression: Chest X-Ray 10/25/24 22:05 Exam(s): XR CXR 1 VIEW EXAM: XR Chest, 1 View CLINICAL HISTORY: Reason for exam: neuro deficit, acute stroke suspected. TECHNIQUE: Frontal view of the chest. COMPARISON: 03/14/2024 FINDINGS: Lungs: No consolidation. Pleural space: No significant pleural effusion. No pneumothorax. Heart: No cardiomegaly or pulmonary vascular congestion. Bones/joints: No acute fracture. No dislocation. Tubes, lines and devices: Left chest wall dual lead AICD-pacemaker. IMPRESSION: No acute findings in the chest. Electronically signed by: Evie Maria M.D. 10/25/24 23:[address] 10/25/24 22:05 CR Exam(s): CT HEAD Without Contrast EXAM: CT Head Without Intravenous Contrast CLINICAL HISTORY: Reason for exam: neuro deficit, acute stroke suspected. TECHNIQUE: Axial computed tomography images of the head/brain without intravenous contrast. CTDI is 37.42 mGy and DLP is 624.41 mGy-cm. Automated exposure control was utilized for the study. A dose lowering technique was utilized adhering to the principles of ALARA. COMPARISON: No relevant prior studies available. FINDINGS: Brain: Left cerebellar encephalomalacia/resection cavity. West-white matter differentiation maintained. Generalized parenchymal volume loss and chronic small-vessel ischemic changes. No acute hemorrhage. No mass effect or midline shift. Ventricles: No hydrocephalus. Bones/joints: Left suboccipital craniectomy. No skull fracture. Soft tissues: Unremarkable. Vasculature: Intracranial atherosclerosis. Sinuses: Unremarkable as visualized. Mastoid air cells: No significant mastoid effusion. Orbits: Lens replacements. IMPRESSION: No acute intracranial process. Communications: Call Doctor Stroke Electronically signed by: Evie Maria M.D. 10/25/24 22:44 PM Head CTA 10/25/24 22:05 CR Exam(s): CTA HEAD With Contrast IV Amt: 119ml optiray 320 EXAM: CT Angiography Head With Intravenous Contrast CLINICAL HISTORY: Reason for exam: neuro deficit, acute stroke suspected. TECHNIQUE: Axial computed tomographic angiography images of the head with intravenous contrast. CTDI is 37.42 mGy and DLP is 624.41 mGy-cm. Automated exposure control was utilized for the study. A dose lowering technique was utilized adhering to the principles of ALARA. MIP reconstructed images were created and reviewed. CONTRAST: Patient received 119ml optiray 320 of IV contrast COMPARISON: Same-day head CT FINDINGS: Limitations: Motion artifact. Right internal carotid artery: No acute findings. Intracranial segment is patent with no significant stenosis. No aneurysm. Right anterior cerebral artery: Unremarkable. No occlusion or significant stenosis. No aneurysm. Right middle cerebral artery: Unremarkable. No occlusion or significant stenosis. No aneurysm. Right posterior cerebral artery: Unremarkable. No occlusion or significant stenosis. No aneurysm. Right vertebral artery: Unremarkable as visualized. Left internal carotid artery: No acute findings. Intracranial segment is patent with no significant stenosis. No aneurysm. Left anterior cerebral artery: Unremarkable. No occlusion or significant stenosis. No aneurysm. Left middle cerebral artery: Unremarkable. No occlusion or significant stenosis. No aneurysm. Left posterior cerebral artery: Unremarkable. No occlusion or significant stenosis. No aneurysm. Left vertebral artery: Unremarkable as visualized. Basilar artery: Unremarkable. No occlusion or significant stenosis. No aneurysm. IMPRESSION: Patent intracranial circulation. Communications: Call Doctor Stroke Electronically signed by: Evie Maria M.D. 10/25/24 22:43 PM Neck CTA 10/25/24 22:05 CR Exam(s): CTA NECK With Contrast IV Amt: 119ml optiray 320 EXAM: CT Angiography Neck With Intravenous Contrast CLINICAL HISTORY: Reason for exam: neuro deficit, acute stroke suspected. TECHNIQUE: Routine carotid CT angiography protocol was performed with intravenous contrast. NASCET criteria using the distal ICAs for comparison were used for evaluation of stenoses. CTDI is 26.99 mGy and DLP is 497.85 mGy-cm. Automated exposure control was utilized for the study. A dose lowering technique was utilized adhering to the principles of ALARA. MIP reconstructed images were created and reviewed. CONTRAST: Patient received 119ml optiray 320 of IV contrast COMPARISON: None. FINDINGS: Limitations: Motion. VASCULATURE: Right common carotid artery: Unremarkable. No occlusion or significant stenosis. No dissection. Right internal carotid artery: Atherosclerotic plaque producing severe stenosis in the proximal segment of the right ICA. No dissection. Right external carotid artery: Unremarkable. No occlusion. Right vertebral artery: Unremarkable. No occlusion or significant stenosis. No dissection. Left common carotid artery: Unremarkable. No occlusion or significant stenosis. No dissection. Left internal carotid artery: Unremarkable. Extracranial segment is patent with no occlusion or significant stenosis. No dissection. Left external carotid artery: Unremarkable. No occlusion. Left vertebral artery: Unremarkable. No occlusion or significant stenosis. No dissection. NECK: Bones/joints: Degenerative change in the cervical spine. No acute fracture. Soft tissues: Unremarkable. Lung apices: Clear. CAROTID STENOSIS REFERENCE USING NASCET CRITERIA: % ICA stenosis = (1 - narrowest ICA diameter/diameter of distal cervical ICA) x 100. Mild - <50% stenosis. Moderate - 50-69% stenosis. Severe - 70-94% stenosis. Near occlusion - 95-99% stenosis. Occluded - 100% stenosis. IMPRESSION: Noncalcified atherosclerotic plaque producing severe stenosis in the proximal segment of the right ICA. Communications: Call Doctor Stroke Electronically signed by: Evie Maria M.D. 10/25/24 22:47 PM MDM Narrative Prior records/ancillary studies reviewed and summarized above. Nursing notes reviewed. Additional history obtained from EMS The patient's history was concerning for altered mental status. Differential diagnosis: Etiologies such as metabolic, infection, hypoglycemia, electrolyte abnormalities, cardiac sources, intracerebral event, toxicologic, neurologic, as well as others were entertained. Physical examination: As above. ER treatment provided: IV Lock Normal saline hydration An order was placed for continuous cardiac monitoring. The monitor shows a rate of 60-100 with a sinus rhythm per my interpretation. I-STAT was ordered and patient was sent down for imaging Patient became combative was given Zyprexa. Magnesium was replaced On reassessment the patients mental status improved. Diagnostics interpretation by me: ECG: Ordered for increased confusion EKG: Poor baseline, paced rhythm, rate of 71. No Sgarbossa. Impression paced rhythm independently interpreted by myself The labs Independently Interpreted by myself revealed no worrisome leukocytosis, stable anemia, negative troponin Low magnesium and this was replaced Imaging studies: Imaging was reviewed and read by radiology Exam and history seem consistent with altered mental status with unclear etiology. No acute stroke or bleed on imaging. Stable labs. No UTI. Clear chest x-ray. Medicine is consulted case discussed. Patient will be admitted to the medical service. Consultation: A consultation was placed with the hospitalist. The case was discussed and diagnostics were reviewed. The patient was evaluated in the ER for further treatment. The chart was completed utilizing [employer] Speech voice recognition software. Grammatical errors, random word insertions, pronoun errors, and incomplete sentences are an occassional consequence of this system due to software limitations, ambient noise, and hardware issues. Any formal questions or concerns about the content, text, or information contained within the body of this dictation should be directly addressed to the physician assistant film editor for clarification. Impression & Plan AMS (altered mental status), Hypomagnesemia Discharge Plan Visit Data Chief Complaint: Altered Mental Status Stated Complaint: AMS, Chest Pain ED Provider: Jonathan Goel ED Midlevel Provider: Renita Russell Discharge Problem: AMS (altered mental status), Hypomagnesemia Patient Disposition: Admitted As Inpatient Condition: Fair Discharge Instructions Interventions: ED Discharge Assessment Last Done: 10/25/24 23:41 Discharge Problem: AMS (altered mental status) Qualifiers: Altered mental status type: unspecified Qualified Code(s): R41.82 - Altered mental status, unspecified
[2024-10-25 22:15] LABS: Hematocrit (blood only) 32.0 % (42.0-52.0); Hemoglobin 11.0 g/dl (14.0-18.0); Immature Granulocytes # (auto) 0.02 K/uL (0.01-0.20); Immature Granulocytes % (auto) 0.4 %; Mean Corpuscular Hemoglobin 30.2 pg (25.0-34.0); Mean Corpuscular Volume 87.9 fL (80.0-100.0); Platelet Count 162 K/uL (130-400); RDW Standard Deviation 43.1 fL (36.4-46.3); Red Blood Count 3.64 M/uL (4.70-6.10); White Blood Count 4.65 K/ul (4.8-10.8)
[2024-10-25] MEDS: OPTIRAY 320 125ml IV ONE ×2 (22:23→23:48)
[2024-10-25 22:31] LABS: Alanine Aminotransferase 14.0 U/L (7-52); Albumin Globulin Ratio 1.1 (0.9-2); Albumin Level 4.0 gm/dl (3.4-5.0); Alkaline Phosphatase 88.0 U/L (34-104); Anion Gap 9.0 (3-11); Bilirubin,Total 0.6 mg/dl (0.2-1.0); Blood Urea Nitrogen 17.0 mg/dl (6-23); Calcium 9.6 mg/dl (8.6-10.3); Carbon Dioxide 23.0 mmol/L (21-32); Chloride 105.0 mmol/L (98-107); Creatinine Clr Calc Pharmacy 52.9 ml/min; Globulin 3.7 gm/dl (2.5-4.0); Glucose 83.0 mg/dl (70-99(Fasting)); Magnesium 1.5 mg/dl (1.7-2.4); Potassium 3.8 mmol/L (3.5-5.1); Sodium 137.0 mmol/L (136-145); Total Protein 7.7 gm/dl (6.0-8.3)
--- NOTE | 2024-10-25 22:44 | CT Scan Report ---
Exam(s): CTA HEAD With Contrast IV Amt: 119ml optiray 320 EXAM: CT Angiography Head With Intravenous Contrast CLINICAL HISTORY: Reason for exam: neuro deficit, acute stroke suspected. TECHNIQUE: Axial computed tomographic angiography images of the head with intravenous contrast. CTDI is 37.42 mGy and DLP is 624.41 mGy-cm. Automated exposure control was utilized for the study. A dose lowering technique was utilized adhering to the principles of ALARA. MIP reconstructed images were created and reviewed. CONTRAST: Patient received 119ml optiray 320 of IV contrast COMPARISON: Same-day head CT FINDINGS: Limitations: Motion artifact. Right internal carotid artery: No acute findings. Intracranial segment is patent with no significant stenosis. No aneurysm. Right anterior cerebral artery: Unremarkable. No occlusion or significant stenosis. No aneurysm. Right middle cerebral artery: Unremarkable. No occlusion or significant stenosis. No aneurysm. Right posterior cerebral artery: Unremarkable. No occlusion or significant stenosis. No aneurysm. Right vertebral artery: Unremarkable as visualized. Left internal carotid artery: No acute findings. Intracranial segment is patent with no significant stenosis. No aneurysm. Left anterior cerebral artery: Unremarkable. No occlusion or significant stenosis. No aneurysm. Left middle cerebral artery: Unremarkable. No occlusion or significant stenosis. No aneurysm. Left posterior cerebral artery: Unremarkable. No occlusion or significant stenosis. No aneurysm. Left vertebral artery: Unremarkable as visualized. Basilar artery: Unremarkable. No occlusion or significant stenosis. No aneurysm. IMPRESSION: Patent intracranial circulation. Communications: Call Doctor Stroke Electronically signed by: Evie Maria M.D. 10/25/24 22:43 PM
--- NOTE | 2024-10-25 22:45 | CT Scan Report ---
Exam(s): CT HEAD Without Contrast EXAM: CT Head Without Intravenous Contrast CLINICAL HISTORY: Reason for exam: neuro deficit, acute stroke suspected. TECHNIQUE: Axial computed tomography images of the head/brain without intravenous contrast. CTDI is 37.42 mGy and DLP is 624.41 mGy-cm. Automated exposure control was utilized for the study. A dose lowering technique was utilized adhering to the principles of ALARA. COMPARISON: No relevant prior studies available. FINDINGS: Brain: Left cerebellar encephalomalacia/resection cavity. West-white matter differentiation maintained. Generalized parenchymal volume loss and chronic small-vessel ischemic changes. No acute hemorrhage. No mass effect or midline shift. Ventricles: No hydrocephalus. Bones/joints: Left suboccipital craniectomy. No skull fracture. Soft tissues: Unremarkable. Vasculature: Intracranial atherosclerosis. Sinuses: Unremarkable as visualized. Mastoid air cells: No significant mastoid effusion. Orbits: Lens replacements. IMPRESSION: No acute intracranial process. Communications: Call Doctor Stroke Electronically signed by: Evie Maria M.D. 10/25/24 22:44 PM
--- NOTE | 2024-10-25 22:48 | CT Scan Report ---
Exam(s): CTA NECK With Contrast IV Amt: 119ml optiray 320 EXAM: CT Angiography Neck With Intravenous Contrast CLINICAL HISTORY: Reason for exam: neuro deficit, acute stroke suspected. TECHNIQUE: Routine carotid CT angiography protocol was performed with intravenous contrast. NASCET criteria using the distal ICAs for comparison were used for evaluation of stenoses. CTDI is 26.99 mGy and DLP is 497.85 mGy-cm. Automated exposure control was utilized for the study. A dose lowering technique was utilized adhering to the principles of ALARA. MIP reconstructed images were created and reviewed. CONTRAST: Patient received 119ml optiray 320 of IV contrast COMPARISON: None. FINDINGS: Limitations: Motion. VASCULATURE: Right common carotid artery: Unremarkable. No occlusion or significant stenosis. No dissection. Right internal carotid artery: Atherosclerotic plaque producing severe stenosis in the proximal segment of the right ICA. No dissection. Right external carotid artery: Unremarkable. No occlusion. Right vertebral artery: Unremarkable. No occlusion or significant stenosis. No dissection. Left common carotid artery: Unremarkable. No occlusion or significant stenosis. No dissection. Left internal carotid artery: Unremarkable. Extracranial segment is patent with no occlusion or significant stenosis. No dissection. Left external carotid artery: Unremarkable. No occlusion. Left vertebral artery: Unremarkable. No occlusion or significant stenosis. No dissection. NECK: Bones/joints: Degenerative change in the cervical spine. No acute fracture. Soft tissues: Unremarkable. Lung apices: Clear. CAROTID STENOSIS REFERENCE USING NASCET CRITERIA: % ICA stenosis = (1 - narrowest ICA diameter/diameter of distal cervical ICA) x 100. Mild - <50% stenosis. Moderate - 50-69% stenosis. Severe - 70-94% stenosis. Near occlusion - 95-99% stenosis. Occluded - 100% stenosis. IMPRESSION: Noncalcified atherosclerotic plaque producing severe stenosis in the proximal segment of the right ICA. Communications: Call Doctor Stroke Electronically signed by: Evie Maria M.D. 10/25/24 22:47 PM
[2024-10-25 22:52] LABS: INR 1.0 (0.9-1.1); Partial Thromboplastin Time 27 Seconds (21-31); Prothrombin Time 10.6 Seconds (9.0-12.0)
[2024-10-25 23:12] LABS: Appearance Urine Clear (Clear); Glucose Urine UA Negative (Negative)
--- NOTE | 2024-10-25 23:15 | History & Physical Report ---
Date of Service October 25, 2024 Assessment & Plan (1) Atypical chest pain: Plan: Assessment and plan below following discussion of case with ED provider and reviewing patient history/pertinent normal/abnormal diagnostic test results. 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 SCDs Re: History spontaneous cerebellar hemorrhage Full code Patient requesting updates providers. Ms. Bee Jett, contact #[phone]. Text document was generated using [employer] voice recognition software. It may contain grammatical or spelling errors. Kindly contact undersigned for clarification of any documentation item in question. ADDENDUM (10/26, 4 AM) Made aware by RN that patient still not calm to be able to undergo CT chest. IV heparin until PE ruled out by CT angio. Add LE venous Dopplers to clot workup History of Present Illness Chief Complaint: Chest pain as per Primary Care Provider: Jonathan Lan MD History obtained from patient's family and records. Limited history from patient secondary to confusion and agitation. Medical history significant for complete heart block status post PPM, moderate , hypertension, orthostatic hypotension as per records, cerebellar hemorrhage status post surgery, history traumatic subdural hematoma, ABDI on CPAP, history of adrenal insufficiency as per records, DM2 on oral medications, hypothyroidism, chronic anemia (baseline hemoglobin of 10), GERD, radiation proctitis as per records, prostate cancer status post radiation, BPH, chronic back pain, mild cognitive impairment as per records, past tobacco abuse. Last confinement January 2024 for third-degree AV block status post PPM. Patient noted to be more confused than usual today by . No slurred speech, facial droop, arm or leg weakness witnessed at home. No new medications. Patient complaining of left-sided chest pain. No relief with nitroglycerin. Patient brought to ER for evaluation. Initial SBP 170s. Patient given IM Zyprexa for agitation. Patient unable to answer questions regarding chest pain, SOB, cough symptoms, abdominal pain. 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 Allergies Allergy/AdvReac Type Severity Reaction Status Date / Time clindamycin Allergy Unknown unknown--per Verified 01/08/24 20:31 [facility] record amoxicillin AdvReac Severe JAUNDICE Verified 01/08/24 20:31 clavulanic acid AdvReac Severe JAUNDICE Verified 01/08/24 20:31 dicyclomine [From Bentyl] AdvReac Intermediate dizziness, Verified 01/08/24 20:31 light headedness isosorbide AdvReac Intermediate PAIN IN Verified 01/08/24 20:31 LIMBS DIARRHEA oxycodone AdvReac Intermediate Confusion Verified 01/08/24 20:31 pregabalin [From Lyrica] AdvReac Intermediate Confusion Verified 01/08/24 20:31 Home Medications Medication Instructions Recorded Confirmed Type cholecalciferol (vitamin D3) 25 1,000 unit PO QAM 08/21/18 10/25/24 History mcg (1,000 unit) tablet (Vitamin D3) levothyroxine 75 mcg tablet 75 mcg PO DAILYBB 08/21/18 10/25/24 History nitroglycerin 0.4 mg sublingual 0.4 mg sublingual Q5W PRN Chest 08/21/18 10/25/24 History tablet Pain omeprazole 20 mg tablet,delayed 20 mg PO QAM 08/21/18 10/25/24 History release tamsulosin 0.4 mg capsule 0.4 mg PO HS 08/21/18 10/25/24 History finasteride 5 mg tablet 5 mg PO QAM 10/02/19 10/25/24 History acetaminophen 500 mg tablet 500 mg PO Q8 PRN Fever >38C Or 02/23/22 10/25/24 History Pain, mild duloxetine 60 mg capsule,delayed 60 mg PO QAM 02/23/22 10/25/24 History release sprinkle rosuvastatin 10 mg tablet 10 mg PO HS 02/23/22 10/25/24 History meclizine 25 mg tablet 25 mg PO TID PRN DIZZY 07/19/23 10/25/24 History cyanocobalamin (vitamin B-12) 1,000 mcg PO QAM 10/25/24 10/25/24 History 1,000 mcg tablet (Vitamin B-12) furosemide 20 mg tablet 20 mg PO 3XWK 10/25/24 10/25/24 History metoprolol succinate 25 mg 25 mg PO AMHS 10/25/24 10/25/24 History tablet,extended release 24 hr vitamin-ferrous sulfate 1 tab PO QAM 10/25/24 10/25/24 History 27 mg iron-folic acid 0.8 mg tablet Past Med/Surg History Problem List (Updated 10/26/24 @ 00:44 by Gamal Gonzalez MD) Atypical chest pain Heart block AV third degree (Acute) Drug-induced bradycardia Adverse effects of medication Left bundle branch block (LBBB) (Acute) Abnormal LFTs (Acute 12/26/12) Bronchitis (Acute) Elevated liver function tests (Acute) HTN (hypertension) (Acute 12/26/12) Hyperbilirubinemia (Acute) Post-operative state (Acute) Post-operative state Dysphagia Hematochezia Lumbar stenosis with neurogenic claudication Medical History (Updated 10/26/24 @ 00:44 by Gamal Gonzalez MD) Recurrent falls Dysphagia BPH (benign prostatic hyperplasia) History of shingles over 10 yrs ago History of prostate cancer RADIATION ONLY 2010 Dysphagia Anxiety and depression Spinal stenosis Osteoarthritis Degenerative disc disease Chronic back pain Chronic kidney disease, stage 3 follows with [facility] GERD (gastroesophageal reflux disease) History of esophageal dilatation Hypothyroidism Radiation proctitis Hearing deficit Stroke 2011--no deficits, no neurologist Hyperlipidemia Cardiac murmur FOLLOWS WITH DR. HITCHCOCK Sleep apnea cpap Surgical History (Updated 02/11/24 @ 00:07 by Agapito Tellez) History of craniotomy X 2 (AT [facility])---d/t hemorrhagic stroke and for a pseudomeningocele repair History of anesthesia reaction woke up paranoid and last for 3 days after both brain surgeries History of total left hip replacement History of total right hip replacement History of prostate biopsy History of colonoscopy History of esophagogastroduodenoscopy (EGD) History of appendectomy History of phacoemulsification of cataract of both eyes with intraocular lens implantation bilat History of tooth extraction all teeth Family History Mother Family history of diabetes mellitus Other No family history of adverse response to anesthesia Social History Smoking Status: Never smoker Tobacco Type: Cigarettes Second Hand Exposure: No; Do You Dip or Chew Tobacco: No; Hx Alcohol Use: No Hx Substance Use: No Preferred Language: German Communication Ability: Impaired Torch [employer] Required: No Beliefs That Will Affect Care: None Current Living Situation: Spouse Feels Safe at Home: Yes Assistive Devices: Cane and Walker Review of Systems Review of Systems: Could not be reliably obtained secondary to confusion/agitation Physical Exam Physical Exam: GENERAL: Agitated, disoriented, no respiratory distress SKIN: Pallor, warm HEENT: Partial alopecia, pale palpebral conjunctivae, no ptosis, dry buccal mucosa NECK : Supple, no tenderness CHEST : CTA, no tenderness HEART : RRR, systolic murmur ABDOMEN: Some distention, nontender EXTREMITIES : No LE swelling/tenderness, no other conspicuous deformities noted NEUROLOGIC : Agitated, no facial asymmetry, slightly hard of hearing, gait and stance not assessed Results & Data Results & Data Vital Signs (Past 12 Hours) Vital Signs Temp Pulse Pulse Resp BP BP Pulse Ox 10/25/24 23:11 91 H 20 139/83 96 10/25/24 22:04 37.1 C 71 22 175/95 H 98 O2 Del Method 10/25/24 23:11 Room Air 10/25/24 22:04 Room Air Laboratory Results Laboratory Results WBC 4.65 K/ul (4.8-10.8) L 10/25/24 21:50 RBC 3.64 M/uL (4.70-6.10) L 10/25/24 21:50 Hgb 11.0 g/dl (14.0-18.0) L 10/25/24 21:50 POC Hgb 11.2 g/dl (14.0-18.0) L 10/25/24 22:01 Hct 32.0 % (42.0-52.0) L 10/25/24 21:50 POC Hct 33 % (42-52) L 10/25/24 22:01 MCV 87.9 fL (80.0-100.0) 10/25/24 21:50 MCH 30.2 pg (25.0-34.0) 10/25/24 21:50 MCHC 34.4 g/dL (32.0-36.0) 10/25/24 21:50 RDW Std Deviation 43.1 fL (36.4-46.3) 10/25/24 21:50 RDW Coeff of Darrick 13.3 % (11.5-14.5) 10/25/24 21:50 Plt Count 162 K/uL (130-400) 10/25/24 21:50 MPV 10.7 fL (9.4-12.4) 10/25/24 21:50 Immature Gran % (Auto) 0.4 % 10/25/24 21:50 Neut % (Auto) 53.5 % 10/25/24 21:50 Lymph % (Auto) 26.9 % 10/25/24 21:50 Millard % (Auto) 14.4 % 10/25/24 21:50 Eos % (Auto) 3.9 % 10/25/24 21:50 Baso % (Auto) 0.9 % 10/25/24 21:50 Neut # (Auto) 2.49 K/uL (1.40-6.50) 10/25/24 21:50 Lymph # (Auto) 1.25 K/uL (1.20-3.40) 10/25/24 21:50 Millard # (Auto) 0.67 K/uL (0.11-0.59) H 10/25/24 21:50 Eos # (Auto) 0.18 K/uL (0.00-0.50) 10/25/24 21:50 Baso # (Auto) 0.04 K/uL (0.00-0.20) 10/25/24 21:50 Immature Gran # (Auto) 0.02 K/uL (0.01-0.20) 10/25/24 21:50 PT 10.6 Seconds (9.0-12.0) 10/25/24 21:50 INR 1.0 (0.9-1.1) 10/25/24 21:50 APTT 27 Seconds (21-31) 10/25/24 21:50 PTT Ratio 1.0 10/25/24 21:50 POC Sodium 139 mmol/L (135-144) 10/25/24 22:01 Sodium 137 mmol/L (136-145) 10/25/24 21:50 POC Potassium 3.9 mmol/L (3.3-5.0) 10/25/24 22:01 Potassium 3.8 mmol/L (3.5-5.1) 10/25/24 21:50 POC Chloride 104 mmol/L (101-112) 10/25/24 22:01 Chloride 105 mmol/L (98-107) 10/25/24 21:50 Carbon Dioxide 23 mmol/L (21-32) 10/25/24 21:50 POC Total CO2 21 mmol/L (24-31) L 10/25/24 22:01 Anion Gap 9 (3-11) 10/25/24 21:50 POC Anion Gap 18.0 mmol/L (16-25) 10/25/24 22:01 POC BUN 17 mg/dl (7-18) 10/25/24 22:01 BUN 17 mg/dl (6-23) 10/25/24 21:50 Creatinine 1.09 mg/dl (0.6-1.4) 10/25/24 21:50 POC Creatinine 1.1 mg/dl (0.6-1.3) 10/25/24 22:01 Est Cr Clr Drug Dosing 52.9 ml/min 10/25/24 21:50 eGFR 65.28 10/25/24 21:50 BUN/Creatinine Ratio 15.6 (10-20) 10/25/24 21:50 Glucose 83 mg/dl (70-99(Fasting)) 10/25/24 21:50 POC Glucose (other) 84 mg/dl (70-99) 10/25/24 22:01 Calcium 9.6 mg/dl (8.6-10.3) 10/25/24 21:50 POC Ioniz Calcium Rakel 1.20 mmol/l (1.12-1.32) 10/25/24 22:01 Magnesium 1.5 mg/dl (1.7-2.4) L 10/25/24 21:50 Total Bilirubin 0.6 mg/dl (0.2-1.0) 10/25/24 21:50 AST 19 U/L (13-39) 10/25/24 21:50 ALT 14 U/L (7-52) 10/25/24 21:50 Alkaline Phosphatase 88 U/L (34-104) 10/25/24 21:50 Troponin I High Sens 9.4 pg/ml (0-20) 10/25/24 21:50 Total Protein 7.7 gm/dl (6.0-8.3) 10/25/24 21:50 Albumin 4.0 gm/dl (3.4-5.0) 10/25/24 21:50 Globulin 3.7 gm/dl (2.5-4.0) 10/25/24 21:50 Albumin/Globulin Ratio 1.1 (0.9-2) 10/25/24 21:50 Urine Color Yellow 10/25/24 22:07 Urine Appearance Clear (Clear) 10/25/24 22:07 Urine pH 8.0 (4.5-7.5) H 10/25/24 22:07 Ur Specific [place] 1.011 (1.000-1.030) 10/25/24 22:07 Urine Protein Negative (Negative) 10/25/24 22:07 Urine Glucose (UA) Negative (Negative) 10/25/24 22:07 Urine Ketones Negative (Negative) 10/25/24 22:07 Urine Blood Negative (Negative) 10/25/24 22:07 Urine Nitrite Negative (Negative) 10/25/24 22:07 Urine Bilirubin Negative (Negative) 10/25/24 22:07 Urine Urobilinogen Negative (Negative) 10/25/24 22:07 Ur Leukocyte Esterase Negative (Negative) 10/25/24 22:07 Urine Comment 10/25/24 22:[address] 10/25/24 22:05 CR Exam(s): CT HEAD Without Contrast EXAM: CT Head Without Intravenous Contrast CLINICAL HISTORY: Reason for exam: neuro deficit, acute stroke suspected. TECHNIQUE: Axial computed tomography images of the head/brain without intravenous contrast. CTDI is 37.42 mGy and DLP is 624.41 mGy-cm. Automated exposure control was utilized for the study. A dose lowering technique was utilized adhering to the principles of ALARA. COMPARISON: No relevant prior studies available. FINDINGS: Brain: Left cerebellar encephalomalacia/resection cavity. West-white matter differentiation maintained. Generalized parenchymal volume loss and chronic small-vessel ischemic changes. No acute hemorrhage. No mass effect or midline shift. Ventricles: No hydrocephalus. Bones/joints: Left suboccipital craniectomy. No skull fracture. Soft tissues: Unremarkable. Vasculature: Intracranial atherosclerosis. Sinuses: Unremarkable as visualized. Mastoid air cells: No significant mastoid effusion. Orbits: Lens replacements. IMPRESSION: No acute intracranial process. Communications: Call Doctor Stroke Electronically signed by: Evie Maria M.D. 10/25/24 22:44 PM Head CTA 10/25/24 22:05 CR Exam(s): CTA HEAD With Contrast IV Amt: 119ml optiray 320 EXAM: CT Angiography Head With Intravenous Contrast CLINICAL HISTORY: Reason for exam: neuro deficit, acute stroke suspected. TECHNIQUE: Axial computed tomographic angiography images of the head with intravenous contrast. CTDI is 37.42 mGy and DLP is 624.41 mGy-cm. Automated exposure control was utilized for the study. A dose lowering technique was utilized adhering to the principles of ALARA. MIP reconstructed images were created and reviewed. CONTRAST: Patient received 119ml optiray 320 of IV contrast COMPARISON: Same-day head CT FINDINGS: Limitations: Motion artifact. Right internal carotid artery: No acute findings. Intracranial segment is patent with no significant stenosis. No aneurysm. Right anterior cerebral artery: Unremarkable. No occlusion or significant stenosis. No aneurysm. Right middle cerebral artery: Unremarkable. No occlusion or significant stenosis. No aneurysm. Right posterior cerebral artery: Unremarkable. No occlusion or significant stenosis. No aneurysm. Right vertebral artery: Unremarkable as visualized. Left internal carotid artery: No acute findings. Intracranial segment is patent with no significant stenosis. No aneurysm. Left anterior cerebral artery: Unremarkable. No occlusion or significant stenosis. No aneurysm. Left middle cerebral artery: Unremarkable. No occlusion or significant stenosis. No aneurysm. Left posterior cerebral artery: Unremarkable. No occlusion or significant stenosis. No aneurysm. Left vertebral artery: Unremarkable as visualized. Basilar artery: Unremarkable. No occlusion or significant stenosis. No aneurysm. IMPRESSION: Patent intracranial circulation. Communications: Call Doctor Stroke Electronically signed by: Evie Maria M.D. 10/25/24 22:43 PM Neck CTA 10/25/24 22:05 CR Exam(s): CTA NECK With Contrast IV Amt: 119ml optiray 320 EXAM: CT Angiography Neck With Intravenous Contrast CLINICAL HISTORY: Reason for exam: neuro deficit, acute stroke suspected. TECHNIQUE: Routine carotid CT angiography protocol was performed with intravenous contrast. NASCET criteria using the distal ICAs for comparison were used for evaluation of stenoses. CTDI is 26.99 mGy and DLP is 497.85 mGy-cm. Automated exposure control was utilized for the study. A dose lowering technique was utilized adhering to the principles of ALARA. MIP reconstructed images were created and reviewed. CONTRAST: Patient received 119ml optiray 320 of IV contrast COMPARISON: None. FINDINGS: Limitations: Motion. VASCULATURE: Right common carotid artery: Unremarkable. No occlusion or significant stenosis. No dissection. Right internal carotid artery: Atherosclerotic plaque producing severe stenosis in the proximal segment of the right ICA. No dissection. Right external carotid artery: Unremarkable. No occlusion. Right vertebral artery: Unremarkable. No occlusion or significant stenosis. No dissection. Left common carotid artery: Unremarkable. No occlusion or significant stenosis. No dissection. Left internal carotid artery: Unremarkable. Extracranial segment is patent with no occlusion or significant stenosis. No dissection. Left external carotid artery: Unremarkable. No occlusion. Left vertebral artery: Unremarkable. No occlusion or significant stenosis. No dissection. NECK: Bones/joints: Degenerative change in the cervical spine. No acute fracture. Soft tissues: Unremarkable. Lung apices: Clear. CAROTID STENOSIS REFERENCE USING NASCET CRITERIA: % ICA stenosis = (1 - narrowest ICA diameter/diameter of distal cervical ICA) x 100. Mild - <50% stenosis. Moderate - 50-69% stenosis. Severe - 70-94% stenosis. Near occlusion - 95-99% stenosis. Occluded - 100% stenosis. IMPRESSION: Noncalcified atherosclerotic plaque producing severe stenosis in the proximal segment of the right ICA. Communications: Call Doctor Stroke Electronically signed by: Evie Maria M.D. 10/25/24 22:47 PM Diagnostic Findings EKG as per my interpretation : Rate 70, paced rhythm
--- NOTE | 2024-10-25 23:29 | XRay Report ---
Exam(s): XR CXR 1 VIEW EXAM: XR Chest, 1 View CLINICAL HISTORY: Reason for exam: neuro deficit, acute stroke suspected. TECHNIQUE: Frontal view of the chest. COMPARISON: 03/14/2024 FINDINGS: Lungs: No consolidation. Pleural space: No significant pleural effusion. No pneumothorax. Heart: No cardiomegaly or pulmonary vascular congestion. Bones/joints: No acute fracture. No dislocation. Tubes, lines and devices: Left chest wall dual lead AICD-pacemaker. IMPRESSION: No acute findings in the chest. Electronically signed by: Evie Maria M.D. 10/25/24 23:28 PM
[2024-10-26] MEDS ORDERED: GLUCOSE 40% GEL 15 GM TUBE PO PRN (00:17)
[2024-10-26] MEDS ORDERED: GLUCAGON FOR INJ 1 MG VIAL SQ PRN (00:17)
[2024-10-26] MEDS ORDERED: DEXTROSE 50% 50 ML SYRINGE IV PRN (00:17)
[2024-10-26] MEDS ORDERED: CARBOHYDRATES FOR HYPOGLYCEMIA PO PRN (00:17)
[2024-10-26] MEDS ORDERED: GLUCOSE 10 TAB/TUBE PO PRN (00:17)
[2024-10-26] MEDS: SODIUM CHLORIDE 0.9% 1,000 ML IV STA (00:24)
[2024-10-26] MEDS: MAGNESIUM SULFATE / D5W 1 GM/100 ML BAG IV SCH (00:24)
[2024-10-26] MEDS: INSULIN ASPART PER UNIT CHARGE SC SCH ×3 (02:50→20:36)
[2024-10-26] MEDS ORDERED: Heparin IV Adult Wt-Based Low-Dose *NO* INITIAL Bolus Protocol IV STA (03:58)
[2024-10-26] MEDS: HEPARIN 25000 UNIT/500 ML D5W 25,000 UNITS/500 ML BAG IV SCH (04:54)
[2024-10-26] MEDS: METOPROLOL TARTRATE 1 MG/ML VIAL IV STA ×2 (04:55→06:21)
[2024-10-26 05:55] LABS: Hematocrit (blood only) 36.2 % (42.0-52.0); Hemoglobin 12.2 g/dl (14.0-18.0); Immature Granulocytes # (auto) 0.04 K/uL (0.01-0.20); Immature Granulocytes % (auto) 0.4 %; Mean Corpuscular Hemoglobin 30.0 pg (25.0-34.0); Mean Corpuscular Volume 89.2 fL (80.0-100.0); Platelet Count 182 K/uL (130-400); RDW Standard Deviation 43.3 fL (36.4-46.3); Red Blood Count 4.06 M/uL (4.70-6.10); White Blood Count 10.00 K/ul (4.8-10.8)
[2024-10-26 06:11] LABS: Anion Gap 11.0 (3-11); Blood Urea Nitrogen 19.0 mg/dl (6-23); Calcium 9.6 mg/dl (8.6-10.3); Carbon Dioxide 22.0 mmol/L (21-32); Chloride 104.0 mmol/L (98-107); Creatinine Clr Calc Pharmacy 37.8 ml/min; Glucose 130.0 mg/dl (70-99(Fasting)); Magnesium 2.1 mg/dl (1.7-2.4); Potassium 3.9 mmol/L (3.5-5.1); Sodium 137.0 mmol/L (136-145)
[2024-10-26] MEDS: LEVOTHYROXINE SODIUM 75 MCG TABLET PO SCH (06:22)
[2024-10-26] MEDS: CYANOCOBALAMIN (B-12) 500 MCG TABLET PO SCH (08:08)
[2024-10-26] MEDS: CHOLECALCIFEROL 25 MCG (1000 UNITS) TAB PO SCH (08:08)
[2024-10-26] MEDS: METOPROLOL SUCC 25MG EXT REL TAB PO SCH (08:08)
[2024-10-26] MEDS: FINASTERIDE 5 MG TAB PO SCH (08:08)
[2024-10-26] MEDS: PRENATAL VITAMIN 1 TAB PO SCH (08:11)
--- NOTE | 2024-10-26 08:31 | CT Scan Report ---
HISTORY: Chest pain. TECHNIQUE: CT angiography of the chest was performed with IV contrast. Images are presented in axial, sagittal, and coronal reformats. Coronal and sagittal 3D MIP reconstructions are also provided. COMPARISON: Chest CT dated 03/14/2024. FINDINGS: Lungs: Mild interstitial pulmonary edema. Atelectasis or parenchymal scarring along the dependent aspect both lower lobes. No pneumothorax or effusion. Mild mucoid debris along the left aspect of the distal trachea. The central tracheobronchial tree is otherwise patent. There is mild diffuse bronchial wall thickening. Heart/Mediastinum: Top normal heart size. Coronary artery calcifications are present. Severe aortic valvular calcification. Mitral annular calcification. No suspicious mediastinal or hilar lymph nodes. Thoracic esophagus is unremarkable. Vasculature: The pulmonary arteries are well-evaluated to the level of the lobar vessels. The segmental and subsegmental vessels are limited due to respiratory motion artifact and contrast timing. No evidence of acute pulmonary embolism within the limitations. The main pulmonary artery is normal in caliber. No thoracic aortic aneurysm. Mild atherosclerotic vascular disease involving the aorta and arch vessels. Soft Tissues: No enlarged axillary lymph nodes. Pacer generator pack in the superior aspect of the ventral left chest wall. Upper Abdomen: Contrast is present in the renal collecting systems. Symmetric perinephric stranding is noted. The included upper abdomen is otherwise unremarkable. Bones: Severe/end-stage arthrosis of the glenohumeral joints.Degenerative changes of the spine.R emote healed rib fractures are noted. IMPRESSION: * No evidence of acute pulmonary embolism within the limitations of contrast timing and respiratory motion artifact. * Mild interstitial pulmonary edema. Top normal heart size. * Coronary artery calcifications are present. Moderate to severe aortic valve calcification. * Additional chronic and/or incidental findings as above. ACT 112: Positive. There are findings on this exam that require communication between the performing entity and the patient following Patient Test Result Information Act ([place] ACT 112) guidelines. Electronically signed by Stanley Elkins 10-26-2024 08:30 AM
[2024-10-26] MEDS: ACETAMINOPHEN 1,000 MG/100 ML VIAL IV STA ×2 (09:02→19:56)
[2024-10-26] MEDS: LABETALOL HCL IV 5 MG/ML 20ML IV STA (09:24)
--- NOTE | 2024-10-26 10:25 | Cardiology Consultation ---
Date of Consultation October 26, 2024 Assessment & Plan (1) Atypical chest pain: (2) Coronary artery calcification: (3) Heart block AV third degree: (4) Cardiac pacemaker: (5) Hyperlipidemia: Plan 89 year old medically complex male with PMHx significant for CHB s/p dual-ch britni pacemaker (implanted 01/10/24), mild-moderate , HTN, HLD, T2DM, and former smoker presented to [facility] on 10/25/24 for evaluation of altered mental status and chest pain. Work-up upon admission remarkable for elevated high- sensitivity troponins (9.4 - 879.9-1528) and elevated D-dimer. EKG demonstrated V-pacing with rate 71 bpm and QTc 506 ms. Neck CTA (10/25/24) demonstrated non- calcified atherosclerotic plaque producing severe stenosis in the proximal segment of the right ICA. CTA Chest (10/26/24) demonstrated no acute PE, mild interstitial pulmonary edema, and moderate-severe coronary artery calcifications. Recommendations: * Recent episode of chest discomfort concerning for NSTEMI given elevated troponins, moderate-severe calcifications on CAT scan, and ASCVD risk factors * Blood pressure remains elevated on AM vital signs * High sensitivity troponins x2 remain elevated (9.4 - 879.9-1528) likely due to NSTEMI * Repeat STAT EKG today * ECHO pending today to assess systolic function and WMAs * Avoid QTc prolonging drugs * Continue to trend troponins Q6hrs until peak * Continue IV heparin for anticoagulation * Remains on IV labetalol for SBP > 180 * Continue toPROL XL and rosuvastatin as per current regimen * Plan to continue with conservative medical management at this time given advanced age and poor cognitive function Case discussed and coordinated with Dr. Hines. Please see Dr. Hines notes for further recommendations. I spent a total of 45 minutes coordinating, documenting, and providing care for this patient excluding time spent in the performance of separately billed services or time spent by another provider/QHP. GABRIELLE Kovacs Department of Cardiology Supervising Physician Co-Signing Physician Notes I spent a total of 50minutes on the date of service in preparation, delivery, and documentation of the care provided to this patient, excluding any time spent in the performance of separately billed services. I have personally performed a history and physical examination on the patient. I have reviewed the advance practitioner's documentation, and I agree with, and take responsibility for the plan of care. 89-year-old male with a past medical history of complete heart block status post dual-chamber pacemaker (01/10/2024), mild to moderate stenosis, HTN, HLD, DM, former smoker presented to ED yesterday for evaluation of altered mental status and chest pain. Unable to get any history from patient is nonverbal and has altered mental status. History obtained from medical apparently patient was noted to be more confused than usual by his . He was noted to have elevated troponins from 8. ECG showed atrial sensed ventricular paced rhythm. CT of the chest showed no evidence of acute pulmonary embolism. There was coronary artery calcifications noted. CT of the head showed no acute intracranial process. CT of the head showed no acute intracranial process. CTA of the neck showed noncalcified atherosclerotic plaque producing severe stenosis in the proximal segment of the right ICA. Echocardiogram done today showed decline in LVEF at 30 to 35% with wall motion abnormality suggestive of possible Takotsubo cardiomyopathy versus significant coronary disease. Unable to get any history from patient. No family present at bedside. Patient is hemodynamically stable. Does not appear to be in acute decompensated heart failure. Given patient's age and altered mental status recommend conservative management for now we will do heparin infusion for 48 hours. Continue to monitor on telemetry. Continue to monitor on telemetry. Depending on clinical course will slowly start guideline directed medical therapy. History of Present Illness Reason for Consultation: NSTEMI Requesting Physician: GABRIELLE Montez Attending Physician: Adarsh Orozco DO History of Present Illness 89 year old male with PMHx significant for CHB s/p dual-chamber pacemaker (implanted 01/10/24), mild-moderate , HTN, HLD, orthostatic hypotension, history of cerebellar hemorrhage s/p surgery, history of traumatic subdural hematoma, ABDI (on CPAP), T2DM, history of adrenal insufficiency, hypothyroidism, chronic anemia (baseline hemoglobin of 10), GERD, prostate cancer s/p radiation, BPH, CKD stage III, mild cognitive impairment, and former smoker who presented to [facility] on 10/25/24 for evaluation of increased confusion and chest pain. Lethargic and unresponsive to questions upon examination. Family not present at bedside and history obtained from chart review. His reported that he was more confused than normal yesterday. Denied stroke-like symptoms. EMS noted that he was complaining of left-sided chest discomfort at home. His gave him x2 SL nitroglycerin at home. He was unable to recall his name or where he was at upon arrival. Received IM Zyprexa in the ED for agitation. Prior [facility] ED visit (03/14/24) after a mechanical fall after slipping and falling on the ice. and found to have a right hip fracture. Discharged to SNF for three months and returned home in June 2024. He notes that he "has not been the same" since hospital admission. Former smoker (20 pack-year history; Quit 1991). Family History: Mother - CVA; HTN Father - CHF Brother - Carotid artery stenosis Allergies Allergy/AdvReac Type Severity Reaction Status Date / Time clindamycin Allergy Unknown unknown--per Verified 01/08/24 20:31 [facility] amoxicillin AdvReac Severe JAUNDICE Verified 01/08/24 20:31 clavulanic acid AdvReac Severe JAUNDICE Verified 01/08/24 20:31 dicyclomine [From Bentyl] AdvReac Intermediate dizziness, Verified 01/08/24 20:31 light headedness isosorbide AdvReac Intermediate PAIN IN Verified 01/08/24 20:31 LIMBS DIARRHEA oxycodone AdvReac Intermediate Confusion Verified 01/08/24 20:31 pregabalin [From Lyrica] AdvReac Intermediate Confusion Verified 01/08/24 20:31 Home Medications Medication Instructions Recorded Confirmed Type cholecalciferol (vitamin D3) 25 1,000 unit PO QAM 08/21/18 10/25/24 History mcg (1,000 unit) tablet (Vitamin D3) levothyroxine 75 mcg tablet 75 mcg PO DAILYBB 08/21/18 10/25/24 History nitroglycerin 0.4 mg sublingual 0.4 mg sublingual Q5W PRN Chest 08/21/18 10/25/24 History tablet Pain omeprazole 20 mg tablet,delayed 20 mg PO QAM 08/21/18 10/25/24 History release tamsulosin 0.4 mg capsule 0.4 mg PO HS 08/21/18 10/25/24 History finasteride 5 mg tablet 5 mg PO QAM 10/02/19 10/25/24 History acetaminophen 500 mg tablet 500 mg PO Q8 PRN Fever >38C Or 02/23/22 10/25/24 History Pain, mild duloxetine 60 mg capsule,delayed 60 mg PO QAM 02/23/22 10/25/24 History release sprinkle rosuvastatin 10 mg tablet 10 mg PO HS 02/23/22 10/25/24 History meclizine 25 mg tablet 25 mg PO TID PRN DIZZY 07/19/23 10/25/24 History cyanocobalamin (vitamin B-12) 1,000 mcg PO QAM 10/25/24 10/25/24 History 1,000 mcg tablet (Vitamin B-12) furosemide 20 mg tablet 20 mg PO 3XWK 10/25/24 10/25/24 History metoprolol succinate 25 mg 25 mg PO AMHS 10/25/24 10/25/24 History tablet,extended release 24 hr vitamin-ferrous sulfate 1 tab PO QAM 10/25/24 10/25/24 History 27 mg iron-folic acid 0.8 mg tablet Patient History Medical History (Updated 10/26/24 @ 10:22 by GABRIELLE Kovacs) Recurrent falls Dysphagia BPH (benign prostatic hyperplasia) History of shingles over 10 yrs ago History of prostate cancer RADIATION ONLY 2010 Dysphagia Anxiety and depression Spinal stenosis Osteoarthritis Degenerative disc disease Chronic back pain Chronic kidney disease, stage 3 follows with [facility] GERD (gastroesophageal reflux disease) History of esophageal dilatation Hypothyroidism Radiation proctitis Hearing deficit Stroke 2011--no deficits, no neurologist Hyperlipidemia Cardiac murmur FOLLOWS WITH DR. HITCHCOCK Sleep apnea cpap Surgical History (Updated 02/11/24 @ 00:07 by Agapito Tellez) History of craniotomy X 2 (AT [facility])---d/t hemorrhagic stroke and for a pseudomeningocele repair History of anesthesia reaction woke up paranoid and last for 3 days after both brain surgeries History of total left hip replacement History of total right hip replacement History of prostate biopsy History of colonoscopy History of esophagogastroduodenoscopy (EGD) History of appendectomy History of phacoemulsification of cataract of both eyes with intraocular lens implantation bilat History of tooth extraction all teeth Family History Mother Family history of diabetes mellitus Other No family history of adverse response to anesthesia Social History Smoking Status: Never smoker Tobacco Type: Cigarettes Second Hand Exposure: No; Do You Dip or Chew Tobacco: No; Hx Alcohol Use: No Hx Substance Use: No Preferred Language: Setswana Communication Ability: Impaired It Professional Required: No Beliefs That Will Affect Care: None Current Living Situation: Spouse Feels Safe at Home: Yes Assistive Devices: Cane and Walker Review of Systems Review of Systems: See HPI for pertinent positives. All others negative other than those noted in the HPI. CONSTITUTIONAL: No change in weight, No weakness, No fatigue, No fevers, No sweats or chills. HEENT: No visual changes, No epistaxis, No bleeding gums, No dysphagia, PULMONARY: No cough, sputum, or hemoptysis, No wheezing, No shortness of breath, and No recent change in breathing. CARDIOVASCULAR: No dyspnea on exertion, No edema, No palpitations, No syncope, No claudication, No calf pain. GASTROINTESTINAL: No change in appetite, No abdominal pain, No change in bowel habits, No significant heartburn, No nausea, No vomiting, No diarrhea, No constipation, No blood in stools or black tarry stools, No dysphagia. HEMATOLOGIC: No abnormal bleeding and No bruising. NEUROLOGICAL: No falls, No dizziness, No lightheadedness, Normal balance, No headaches, and No weakness. PSYCH: No sleep disturbances, No mood changes. Physical Exam Physical Exam: Vital signs within normal limits as above. General: Well developed and nourished. No acute distress. A+Ox3. HEENT: Normocephalic. Atraumatic. EOMI. Conjunctiva and sclera clear. NECK: Trachea midline. No thyromegaly. No carotid bruits. No JVD. Carotid upstrokes are brisk. Heart: Tachycardic. Regular rhythm. S1 and S2 noted. Grade II/ systolic murmur auscultated along left sternal border. No rubs or gallops. PMI non displaced. Lungs: No acute respiratory distress. Clear to auscultation. No wheezes.No rhonchi. No rales. Abdomen: Normal bowel sounds. Soft. Nontender. No abdominal bruits. Extremities: Normal capillary refill. No edema. No clubbing or cyanosis. Pulses: radial=2/4, dorsal pedis=2/4. Skin: Warm and dry. NEURO: No focal deficits. PSYCH: Appropriate affect and insight. Results & Data Vital Signs (Past 12 Hours) Vital Signs Temp Pulse Pulse Resp BP BP BP 10/26/24 09:39 105 H 160/105 H 10/26/24 09:24 120 H 189/114 H 10/26/24 07:26 189/114 H 10/26/24 07:25 180/108 H 10/26/24 07:24 36.7 C 109 H 26 H 187/116 H 10/26/24 06:37 108 H 181/108 H 10/26/24 06:36 103 H 181/111 H 10/26/24 06:21 107 H 188/111 H 10/26/24 05:10 109 H 10/26/24 04:21 105 H 10/26/24 03:58 37.1 C 101 H 26 H 191/101 H 10/26/24 00:15 10/26/24 00:15 10/26/24 00:14 36.5 C 101 H 34 H 10/25/24 23:11 91 H 20 139/83 Pulse Ox Pulse Ox O2 Del Method O2 Del Method 10/26/24 09:39 10/26/24 09:24 10/26/24 07:26 10/26/24 07:25 10/26/24 07:24 92 Room Air 10/26/24 06:37 10/26/24 06:36 10/26/24 06:21 10/26/24 05:10 10/26/24 04:21 10/26/24 03:58 96 Room Air 10/26/24 00:15 97 Room Air 10/26/24 00:15 Room Air 10/26/24 00:14 97 Room Air 10/25/24 23:11 96 Room Air Laboratory Results Cardiac Enzymes 10/25/24 10/26/24 10/26/24 Range/Units 21:50 00:33 05:27 AST 19 (13-39) U/L Troponin I High Sens 9.4 11.1 214.8 H* D (0-20) pg/ml 10/26/24 Range/Units 09:20 AST (13-39) U/L Troponin I High Sens 879.9 H* D (0-20) pg/ml Coagulation 10/25/24 Range/Units 21:50 PT 10.6 (9.0-12.0) Seconds APTT 27 (21-31) Seconds CBC 10/25/24 10/26/24 Range/Units 21:50 05:27 WBC 4.65 L 10.00 (4.8-10.8) K/ul RBC 3.64 L 4.06 L (4.70-6.10) M/uL Hgb 11.0 L 12.2 L (14.0-18.0) g/dl Hct 32.0 L 36.2 L (42.0-52.0) % Plt Count 162 182 (130-400) K/uL Neut # (Auto) 2.49 8.47 H (1.40-6.50) K/uL Lymph # (Auto) 1.25 0.53 L (1.20-3.40) K/uL Stephens # (Auto) 0.67 H 0.92 H (0.11-0.59) K/uL Eos # (Auto) 0.18 0.01 (0.00-0.50) K/uL Baso # (Auto) 0.04 0.03 (0.00-0.20) K/uL Comprehensive Metabolic Panel 10/25/24 10/26/24 Range/Units 21:50 05:27 Sodium 137 137 (136-145) mmol/L Potassium 3.8 3.9 (3.5-5.1) mmol/L Chloride 105 104 (98-107) mmol/L Carbon Dioxide 23 22 (21-32) mmol/L BUN 17 19 (6-23) mg/dl Creatinine 1.09 1.50 H D (0.6-1.4) mg/dl Glucose 83 130 H (70-99(Fasting)) mg/dl Calcium 9.6 9.6 (8.6-10.3) mg/dl AST 19 (13-39) U/L ALT 14 (7-52) U/L Alkaline Phosphatase 88 (34-104) U/L Total Protein 7.7 (6.0-8.3) gm/dl Albumin 4.0 (3.4-5.0) gm/dl Intake and Output 10/25/24 10/26/24 10/26/24 22:59 06:59 14:59 Intake Total 200 / 200 100 / 100 Output Total Balance 199 / 199 100 / 100 Intake: IV 200 / 200 100 / 100 Acetaminophen 1,000 mg In 100 100 / 100 ml @ 400 mls/hr IV NOW STA Rx#: [id number] Magnesium Sulfate / D5w 1 gm In 200 / 200 100 ml @ 200 mls/hr IV Q30M [facility] Rx#:[id number] Output: # Bowel Movements Other: Weight 81.89 kg 78.5 kg Weight Measurement Method Chair Scale Built in [facility] Diagnostic Findings EKG 10/25/24 at 21:59:10 V-paced 71 bpm QTc 506 ms ECHO 03/18/24 The qualitative LV ejection fraction is 50-54% (normal). No LV segmental wall motion abnormalities. The right ventricular cavity size is normal (basal dimension < 4.2 cm RV apical 4 chamber view). The right ventricular systolic function is qualitatively normal. Normal IVC size and collapsability with sniff indicates a normal right atrial pressure of 3 mmHg. There is mild to moderate aortic stenosis present. Neck CTA 10/25/24 22:05 CR Exam(s): CTA NECK With Contrast IV Amt: 119ml optiray 320 EXAM: CT Angiography Neck With Intravenous Contrast CLINICAL HISTORY: Reason for exam: neuro deficit, acute stroke suspected. TECHNIQUE: Routine carotid CT angiography protocol was performed with intravenous contrast. NASCET criteria using the distal ICAs for comparison were used for evaluation of stenoses. CTDI is 26.99 mGy and DLP is 497.85 mGy-cm. Automated exposure control was utilized for the study. A dose lowering technique was utilized adhering to the principles of ALARA. MIP reconstructed images were created and reviewed. CONTRAST: Patient received 119ml optiray 320 of IV contrast COMPARISON: None. FINDINGS: Limitations: Motion. VASCULATURE: Right common carotid artery: Unremarkable. No occlusion or significant stenosis. No dissection. Right internal carotid artery: Atherosclerotic plaque producing severe stenosis in the proximal segment of the right ICA. No dissection. Right external carotid artery: Unremarkable. No occlusion. Right vertebral artery: Unremarkable. No occlusion or significant stenosis. No dissection. Left common carotid artery: Unremarkable. No occlusion or significant stenosis. No dissection. Left internal carotid artery: Unremarkable. Extracranial segment is patent with no occlusion or significant stenosis. No dissection. Left external carotid artery: Unremarkable. No occlusion. Left vertebral artery: Unremarkable. No occlusion or significant stenosis. No dissection. NECK: Bones/joints: Degenerative change in the cervical spine. No acute fracture. Soft tissues: Unremarkable. Lung apices: Clear. CAROTID STENOSIS REFERENCE USING NASCET CRITERIA: % ICA stenosis = (1 - narrowest ICA diameter/diameter of distal cervical ICA) x 100. Mild - <50% stenosis. Moderate - 50-69% stenosis. Severe - 70-94% stenosis. Near occlusion - 95-99% stenosis. Occluded - 100% stenosis. IMPRESSION: Noncalcified atherosclerotic plaque producing severe stenosis in the proximal segment of the right ICA. Communications: Call Doctor Stroke Electronically signed by: Evie Maria M.D. 10/25/24 22:47 PM Chest CTA 10/26/24 01:40 HISTORY: Chest pain. TECHNIQUE: CT angiography of the chest was performed with IV contrast. Images are presented in axial, sagittal, and coronal reformats. Coronal and sagittal 3D MIP reconstructions are also provided. COMPARISON: Chest CT dated 03/14/2024. FINDINGS: Lungs: Mild interstitial pulmonary edema. Atelectasis or parenchymal scarring along the dependent aspect both lower lobes. No pneumothorax or effusion. Mild mucoid debris along the left aspect of the distal trachea. The central tracheobronchial tree is otherwise patent. There is mild diffuse bronchial wall thickening. Heart/Mediastinum: Top normal heart size. Coronary artery calcifications are present. Severe aortic valvular calcification. Mitral annular calcification. No suspicious mediastinal or hilar lymph nodes. Thoracic esophagus is unremarkable. Vasculature: The pulmonary arteries are well-evaluated to the level of the lobar vessels. The segmental and subsegmental vessels are limited due to respiratory motion artifact and contrast timing. No evidence of acute pulmonary embolism within the limitations. The main pulmonary artery is normal in caliber. No thoracic aortic aneurysm. Mild atherosclerotic vascular disease involving the aorta and arch vessels. Soft Tissues: No enlarged axillary lymph nodes. Pacer generator pack in the superior aspect of the ventral left chest wall. Upper Abdomen: Contrast is present in the renal collecting systems. Symmetric perinephric stranding is noted. The included upper abdomen is otherwise unremarkable. Bones: Severe/end-stage arthrosis of the glenohumeral joints.Degenerative changes of the spine.R emote healed rib fractures are noted. IMPRESSION: * No evidence of acute pulmonary embolism within the limitations of contrast timing and respiratory motion artifact. * Mild interstitial pulmonary edema. Top normal heart size. * Coronary artery calcifications are present. Moderate to severe aortic valve calcification. * Additional chronic and/or incidental findings as above. ACT 112: Positive. There are findings on this exam that require communication between the performing entity and the patient following Patient Test Result Information Act ([place] ACT 112) guidelines. Electronically signed by Stanley Elkins 10-26-2024 08:30 AM PG Care Time/CCT Total # of Minutes Spent Total Time Spent with Patient: Total time spent is greater than 50% in coordination of care (as documented) at patient's floor/unit and/or counseling patient: [place] [address] IN/OBS CONSULT LVL 5,80M Patient Type New Medical Decision Making High Complexity Diagnoses Atypical chest pain R07.89 Coronary artery calcification I25.10 Heart block AV third degree I44.2 Cardiac pacemaker Z95.0 Hyperlipidemia E78.5 Time Spent (min) 50
--- NOTE | 2024-10-26 10:39 | Hospitalist Progress Note ---
<Statement entered by Adarsh Orozco, DO - 10/26/24 16:04> seen adn examined NSTEMI- continue IV heparin. cardio following Delirium- continue prn zyprexa Date of Service October 26, 2024 Assessment & Plan (1) Atypical chest pain: Plan: 89 year old male with past medical history significant for CHB s/p dual-chamber pacemaker (implanted 01/10/24), mild-moderate , HTN, HLD, orthostatic hypotension, history of cerebellar hemorrhage s/p surgery, history of traumatic subdural hematoma, ABDI (on CPAP), DM Type II, history of adrenal insufficiency, hypothyroidism, chronic anemia, GERD, prostate cancer s/p radiation, BPH, CKD stage III, mild cognitive impairment, and former smoker who presents with chest pain and confusion. As per , patient reported chest pain yesterday, followed by confusion, given Nitro x 2 with no improvement, then called EMS. Per patient is not typically confused. Atypical chest pain #Elevated Troponin * Admit to PCU for further workup and management * H/O complete heart block s/p PPM; h/o moderate ; follows [facility] * Trop initially 214->879->[id number] now; trending Q6H * EKG Atrial-sensed ventricular-paced rhythm, 71 bpm, QTc 506 * D-dimer 2200-> Chest CTA today showing no PE, Mild interstitial pulmonary edema, Coronary artery calcifications, Moderate to severe aortic valve calcification. * On IV heparin gtts * Neck CTA showing Noncalcified atherosclerotic plaque producing severe stenosis in the proximal segment of the right ICA. * Cardiology consulted with recs for conservative management, trend trops, no plan for cardiac cath * Echo completed at bedside this morning- results pending * Resume BB, statin today #Altered Mental Status * Head CT showing no acute intracranial process. * Zyprexa given x 4 overnight for agitation, threatening nursing staff * Agitated this morning, thrashing in bed, confused- will give Zyprexa as needed d/t risk QTc prolongation * Delirium precautions #Hypertensive Urgency/Emergency * Metoprolol 2.5mg x 2 given overnight * BP's 180-190's/100-116 today * Labetalol 10mg given with downtrend to 156/100 * Creatinine 1.09, increased to 1.5->will trend with AM labs * Caution with nephrotox drugs #ABDI * Requiring supplemental O2 today 2LPM, NAD * CPAP at home- continue HS here #Diabetes Mellitus * Home home oral medications, * well-controlled A1c of 5.16 March 2024 * BG goal 110-140 * Accuchecks Q6H today while NPO * SSI while inpatient #chronic anemia * Hgb 12 today, baseline 10 * Trend with AM labs #Hypothyroidism * euthyroid as of recent outpatient TSH * Continue levothyroxine per home DVT Ppx: Heparin gtts; SCDs Code status: Full PCP: Dr. Lan Dispo: Admit for further management and workup Patient seen in collaboration with Dr. Orozco. Please see addendum.I spent a total of 45 minutes coordinating, documenting and providing care for this patient excluding time spent in the performance of separately billed services or time spent by another provider/QHP. Patient requesting updates providers. Ms. Bee Jett, contact #[phone]. Admission and Anticipated Discharge Date Admission Date: October 25, 2024 Subjective Patient seen and examined at bedside. Agitated this morning, thrashing in bed, squeezing my hand and opening eyes spontaneously with occasional grunt. With Zyprexa, he calmed but was unable to answer any questions. Spoke to via phone this morning who reports he had a CVA in 2011 with no cognitive concerns following and is never confused. Yesterday, he reported to have chest pain and then suddenly became confused. Nitro was given x 2 at home and he was brought here via EMS. states patient has "not been the same since March" when admitted to the hospital for a mechanical fall. He went to SNF for ~3 months, returned home in June. He has been weaker than he was prior to the fall, but never reported cardiac symptoms or had periods of confusion. Patient follows [facility], last seen 10/08/24 for device check, no issues with pacer at that time. Review of Systems Review of Systems: Unobtainable due to cognitive status Physical Exam Physical Exam: VITALS: Reviewed. WEIGHT/BMI reviewed. GEN: Frail, well-developed, thrashing in bed PSYCH: Agitated, not answering questions HEENT -Head: NC/AT; -Eyes: PERRL, EOMI. No discharge or redn ess; -Ears: External ears are normal. -Nose: Normal nares. -Mouth and throat: MMM. Normal gums, muc abdi, palate,. Good dentition. NECK: Supple, with no masses. CV: RRR, +murmur w/ radiation to neck, no swelling LUNGS: CTAB, no w/r/c. ABD: Soft, NT/ND, NBS, no masses or organomegaly. : N/A SKIN: Warm, well perfused. No skin rashes or abnormal lesions. MSK: BRAVO freely EXT: No clubbing, cyanosis, or edema. NEURO: Grunting, opens eyes spontaneously, pupils ok, gripping hands, swallowing ok Results & Data Results & Data Vital Signs (Past 12 Hours) Vital Signs Temp Pulse Pulse Resp BP BP BP 10/26/24 09:39 105 H 160/105 H 10/26/24 09:24 120 H 189/114 H 10/26/24 09:00 10/26/24 07:26 189/114 H 10/26/24 07:25 180/108 H 10/26/24 07:24 36.7 C 109 H 26 H 187/116 H 10/26/24 06:37 108 H 181/108 H 10/26/24 06:36 103 H 181/111 H 10/26/24 06:21 107 H 188/111 H 10/26/24 05:10 109 H 10/26/24 04:21 105 H 10/26/24 03:58 37.1 C 101 H 26 H 191/101 H 10/26/24 00:15 10/26/24 00:15 10/26/24 00:14 36.5 C 101 H 34 H 10/25/24 23:11 91 H 20 139/83 Pulse Ox Pulse Ox O2 Del Method O2 Del Method O2 Flow Rate 10/26/24 09:39 10/26/24 09:24 10/26/24 09:00 93 Nasal Cannula 2 10/26/24 07:26 10/26/24 07:25 10/26/24 07:24 92 Room Air 10/26/24 06:37 10/26/24 06:36 10/26/24 06:21 10/26/24 05:10 10/26/24 04:21 10/26/24 03:58 96 Room Air 10/26/24 00:15 97 Room Air 10/26/24 00:15 Room Air 10/26/24 00:14 97 Room Air 10/25/24 23:11 96 Room Air Laboratory Results Short CBC 10/25/24 10/26/24 Range/Units 21:50 05:27 WBC 4.65 L 10.00 (4.8-10.8) K/ul Hgb 11.0 L 12.2 L (14.0-18.0) g/dl Hct 32.0 L 36.2 L (42.0-52.0) % Plt Count 162 182 (130-400) K/uL BMP 10/25/24 10/26/24 21:50 05:27 Sodium 137 137 Potassium 3.8 3.9 Chloride 105 104 Carbon Dioxide 23 22 BUN 17 19 Creatinine 1.09 1.50 H D Glucose 83 130 H Calcium 9.6 9.6 Liver Function 10/25/24 Range/Units 21:50 Total Bilirubin 0.6 (0.2-1.0) mg/dl AST 19 (13-39) U/L ALT 14 (7-52) U/L Alkaline Phosphatase 88 (34-104) U/L Albumin 4.0 (3.4-5.0) gm/dl Urine 10/25/24 Range/Units 22:07 Urine Color Yellow Urine Appearance Clear (Clear) Urine pH 8.0 H (4.5-7.5) Ur Specific [place] 1.011 (1.000-1.030) Urine Protein Negative (Negative) Urine Glucose (UA) Negative (Negative) Diagnostic Findings Chest CTA 10/26/24 01:40 HISTORY: Chest pain. TECHNIQUE: CT angiography of the chest was performed with IV contrast. Images are presented in axial, sagittal, and coronal reformats. Coronal and sagittal 3D MIP reconstructions are also provided. COMPARISON: Chest CT dated 03/14/2024. FINDINGS: Lungs: Mild interstitial pulmonary edema. Atelectasis or parenchymal scarring along the dependent aspect both lower lobes. No pneumothorax or effusion. Mild mucoid debris along the left aspect of the distal trachea. The central tracheobronchial tree is otherwise patent. There is mild diffuse bronchial wall thickening. Heart/Mediastinum: Top normal heart size. Coronary artery calcifications are present. Severe aortic valvular calcification. Mitral annular calcification. No suspicious mediastinal or hilar lymph nodes. Thoracic esophagus is unremarkable. Vasculature: The pulmonary arteries are well-evaluated to the level of the lobar vessels. The segmental and subsegmental vessels are limited due to respiratory motion artifact and contrast timing. No evidence of acute pulmonary embolism within the limitations. The main pulmonary artery is normal in caliber. No thoracic aortic aneurysm. Mild atherosclerotic vascular disease involving the aorta and arch vessels. Soft Tissues: No enlarged axillary lymph nodes. Pacer generator pack in the superior aspect of the ventral left chest wall. Upper Abdomen: Contrast is present in the renal collecting systems. Symmetric perinephric stranding is noted. The included upper abdomen is otherwise unremarkable. Bones: Severe/end-stage arthrosis of the glenohumeral joints.Degenerative changes of the spine.R emote healed rib fractures are noted. IMPRESSION: * No evidence of acute pulmonary embolism within the limitations of contrast timing and respiratory motion artifact. * Mild interstitial pulmonary edema. Top normal heart size. * Coronary artery calcifications are present. Moderate to severe aortic valve calcification. * Additional chronic and/or incidental findings as above. ACT 112: Positive. There are findings on this exam that require communication between the performing entity and the patient following Patient Test Result Information Act ([place] ACT 112) guidelines. Electronically signed by Stanley Elkins 10-26-2024 08:30 AM
[2024-10-26] MEDS ORDERED: LABETALOL HCL IV 5 MG/ML 20ML IV PRN ×2 (11:05→11:39)
[2024-10-26 11:19] LABS: ANTI-Xa, UFH(UnfractionatedHep 0.27 IU/ml (0.3-0.7)
--- NOTE | 2024-10-26 13:03 | Electrocardiogram Report ---
Test Reason : Blood Pressure : */* mmHG Vent. Rate : 71 BPM Atrial Rate : 71 BPM P-R Int : 176 ms QRS Dur : 120 ms QT Int : 466 ms P-R-T Axes : 39 -33 75 degrees QTcB Int : 506 ms Atrial-sensed ventricular-paced rhythm Abnormal ECG When compared with ECG of 14-Mar-2024 19:13, No significant change was found Confirmed by Darlene Rothman (Bev) on 10/26/2024 1:03:04 PM Referred By: REFERRED SELF Confirmed By: Darlene Rothman
--- NOTE | 2024-10-26 13:06 | Ultrasound Report ---
HISTORY: Lower extremity pain/edema. TECHNIQUE: Bilateral lower extremity venous Doppler evaluation for DVT. Grayscale, color Doppler, and spectral Doppler imaging was utilized. COMPARISON: None. FINDINGS: Right lower extremity: The common femoral vein and greater saphenous junction appear color Doppler patent and compressible. The deep femoral vein and femoral vein appear color Doppler patent and compressible. The popliteal vein appears color Doppler patent and compressible. The posterior tibial, peroneal, and anterior tibial veins appear color Doppler patent. Respiratory variation and augmentation is noted. Surrounding soft tissues are unremarkable. Left lower extremity: The common femoral vein and greater saphenous junction appear color Doppler patent and compressible. The deep femoral vein and femoral vein appear color Doppler patent and compressible. The popliteal vein, posterior tibial vein, peroneal vein, and anterior tibial vein appear color Doppler patent and compressible. Respiratory variation and augmentation is noted. The surrounding soft tissues are unremarkable. IMPRESSION: No evidence of lower extremity DVT. Electronically signed by Stanley Elkins 10-26-2024 13:06 PM
[2024-10-26] MEDS ORDERED: Nursing to Pharmacy Communication SCH (17:45)
[2024-10-26 18:57] LABS: ANTI-Xa, UFH(UnfractionatedHep 0.52 IU/ml (0.3-0.7)
[2024-10-26] MEDS: ROSUVASTATIN CALCIUM 10 MG TAB PO SCH (21:55)
[2024-10-26] MEDS: TAMSULOSIN HCL 0.4 MG CAP PO SCH (21:55)
--- NOTE | 2024-10-27 00:01 | CT Scan Report ---
Exam(s): CT ABDOMEN + PELVIS Without Contrast EXAM: CT Abdomen and Pelvis Without Intravenous Contrast CLINICAL HISTORY: back pain, heparin. TECHNIQUE: Axial computed tomography images of the abdomen and pelvis without intravenous contrast. CTDI is 33.41 mGy and DLP is 1763.9 mGy-cm. Automated exposure control was utilized for the study. A dose lowering technique was utilized adhering to the principles of ALARA. COMPARISON: CT abdomen and pelvis with contrast dated 03/14/2024 FINDINGS: Artifacts: Scatter artifact likely related to patient's arm position. Limitations: There is diffuse respiratory artifact, which degrades image quality throughout the examination. Lung bases: Unremarkable. No mass. No consolidation. Pleural space: Curvilinear changes noted at the lung bases. Evaluation is limited by respiratory artifact. No pleural effusion. ABDOMEN: Liver: Unremarkable. Gallbladder and bile ducts: Excreted contrast in the gallbladder. No gallbladder wall thickening or biliary dilatation. No calcified stones. Pancreas: Unremarkable. No ductal dilation. Spleen: The spleen is grossly unremarkable, accounting for limitations. Adrenals: Unremarkable. No mass. Kidneys and ureters: The kidneys demonstrate enhancement presumably from recent CTA examination of the head. No hydronephrosis. Evaluation for nephrolithiasis is limited with excreted contrast in the renal collecting systems and throughout the ureters. Stomach and bowel: No bowel obstruction. Evaluation of the bowel is limited without contrast and respiratory artifact. Mild stool burden. No appreciable diverticulitis. PELVIS: Appendix: The appendix is not clearly delineated. Bladder: The bladder is moderately distended. No bladder wall thickening or bladder stones. Reproductive: Unremarkable as visualized. ABDOMEN and PELVIS: Intraperitoneal space: Unremarkable. No free air. No significant fluid collection. Retroperitoneal space: There is hyperdense fat stranding involving the retroperitoneum bilaterally, right side slightly greater than left. No well-defined hematoma. Bones/joints: Bilateral hip arthroplasties noted. No acute osseous abnormality. Soft tissues: Unremarkable. Vasculature: Subtle ectasia with atherosclerotic calcification of the aorta. However, there appears to be preservation of the fat plane surrounding the aorta without evidence for periaortic hematoma. No abdominal aortic aneurysm. Lymph nodes: Unremarkable. No enlarged lymph nodes. IMPRESSION: There is hyperdense fat stranding involving the retroperitoneum bilaterally, right side slightly greater than left. No well-defined hematoma. The appearance suggests retroperitoneal hemorrhagic products. The source of the hemorrhage is not clearly delineated on this noncontrast examination. If the patient fails to respond to potential fluid resuscitation efforts, there should be a low threshold for repeat imaging. Electronically signed by: Nile Irwin MD 10/27/24 00:00 AM
[2024-10-27 00:45] LABS: Hematocrit (blood only) 36.0 % (42.0-52.0); Hemoglobin 12.5 g/dl (14.0-18.0)
--- NOTE | 2024-10-27 02:23 | Communication Note ---
Date of Service: October 26, 2024 Patient with back pain complaints as per RN. AP Back pain IV heparin anticoagulation for ACS Hold heparin CT abdomen pelvis Addendum There is hyperdense fat stranding involving the retroperitoneum bilaterally, right side slightly greater than left. No well-defined hematoma. The appearance suggests retroperitoneal hemorrhagic products. The source of the hemorrhage is not clearly delineated on this noncontrast examination Possible retroperitoneal bleed on CT Continue to hold heparin H&H now
[2024-10-27 06:32] LABS: Hematocrit (blood only) 35.2 % (42.0-52.0); Hemoglobin 12.4 g/dl (14.0-18.0); Mean Corpuscular Hemoglobin 31.3 pg (25.0-34.0); Mean Corpuscular Volume 88.9 fL (80.0-100.0); Platelet Count 162 K/uL (130-400); RDW Standard Deviation 44.9 fL (36.4-46.3); Red Blood Count 3.96 M/uL (4.70-6.10); White Blood Count 11.47 K/ul (4.8-10.8)
[2024-10-27 07:22] LABS: ANTI-Xa, UFH(UnfractionatedHep < 0.10 IU/ml (0.3-0.7)
[2024-10-27 07:25] LABS: Anion Gap 11.0 (3-11); Blood Urea Nitrogen 31.0 mg/dl (6-23); Calcium 9.2 mg/dl (8.6-10.3); Carbon Dioxide 21.0 mmol/L (21-32); Chloride 105.0 mmol/L (98-107); Creatinine Clr Calc Pharmacy 22.4 ml/min; Glucose 115.0 mg/dl (70-99(Fasting)); Potassium 4.5 mmol/L (3.5-5.1); Sodium 137.0 mmol/L (136-145)
--- NOTE | 2024-10-27 08:12 | Electrocardiogram Report ---
Test Reason : Blood Pressure : */* mmHG Vent. Rate : 108 BPM Atrial Rate : 108 BPM P-R Int : 146 ms QRS Dur : 136 ms QT Int : 390 ms P-R-T Axes : 72 6 95 degrees QTcB Int : 522 ms Atrial-sensed ventricular-paced rhythm Abnormal ECG When compared with ECG of 25-Oct-2024 21:59, Vent. rate has increased by 37 bpm Confirmed by Darlene Rothman ([employer]ev) on 10/27/2024 8:11:56 AM Referred By: REFERRED SELF Confirmed By: Darlene Rothman
[2024-10-27] MEDS: LACTATED RINGER'S 1,000 ML IV SCH (08:44)
--- NOTE | 2024-10-27 08:59 | Palliative Care Consultation ---
Date of Consultation October 27, 2024 Assessment & Plan (1) Lethargy: (2) Delirium of mixed origin: Spouse states that just one day prior to admission pt was at his baseline cognitive function. She shared that he was trying to fix a leaking commode at home and got frustrated, told her he was angry because he cannot do anything anymore and lay down for a nap. The pt reportedly woke later complaining of CP and then had an acute change in mental status to point of "speaking gibberish". We discussed delirium at length, She shared that the patient has been sleeping for 18-20hours per day for several months. Discussed hypoactive delirium and helped her understand differences between dementia and delirium. Unfortunately there are no known medications to cure or shorten the duration of delirium; rather PRN antipsychotics are recommended to help with sleep/appetite/psychomotor agitation and hallucinations if these symptoms are causing significant distress and/or interfering with acute safety. Duration of delirium varies broadly; persistent delirium occurs with many patients exhibiting some symptoms of delirium at 6 months after symptom onset. Goal s to avoid medication management of behaviors if possible by maximizing non- pharmacologic strategies for behavioral management. Standard Delirium Care - Search for occult etiologies of delirium including toxic, metabolic, and infectious. Medication effects and drug/ETOH withdrawal should also be sought. - Avoid restraints other than lap belts. Redirection by family/friends, or medical staff is more effective and promotes recovery. - Encourage patient to wear glasses and hearing aides - Encourage 24 hour visitation from family/friends - Encourage family/friends to redirect patient to avoid need for meds/restraints - Avoids benzos - Use atypical neuroleptics in a low scheduled dose in combination with PRN for agitation - Low dose IV morphine can be used with caution if neuroleptics fail for acute delirium - Redirection by family, friends, and medical staff can be more effective and safer than medication use. - Pain causes delirium and should be addressed in a balanced, conservative, but effective manner. - During the day, patient should be awake. Lights should be on. TV should be on. Patient should be placed in chair with restraints if possible and allowed into ibarra or outside in wheelchair if can tolerate. - At night, lights should be dimmed and stimulation should be minimized. A scheduled dose of neuroleptic may be given at least 2 hours prior to typical onset of - Room noises can cause anxiety inducing hallucinations. If the room is loud, has atypical noises (construction, beeping, loud neighbor, etc) or patient is having negative reaction to ambient stimuli, patient should be moved to another room - Nutritional status should be addressed. Any nutritional deficits should be aggressively remediated. - High carbohydrate meals should be served - Please make family aware that delirium may last for weeks to months. - Patients with baseline Organic brain syndrome are more prone to delirium and take longer to recover - Patient with baseline organic brain syndromes, especially neurodegenerative ones like Dementia of Alzheimer's type may never recovery back to pre-morbid baseline. (3) Counseling regarding goals of care: Patient exhibits current lack of decisional capacity and does require a proxy for medical decisions. Hospital does not have written documentation of patient wishes concerning his chosen proxy for medical decisions. Per PA [id number], in absence of written documentation of patient wishes, pt's proxy for medical decisions would be his . Met with pt and his at bedside. Pt mostly slept, but occasionally did interact in nonsensical/confused speech. We discussed at length the patient's acute and chronic medical conditions, general prognosis, treatment options, and goals of care. 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 One son lives in [place] and one in [place], but they remain involved in their life. She shared that the patient has had a progressive decline in his quality of life since February of this year. She shared that he no longer drives but was independent with his ADLs prior to admission. She shared that Bill has been sleeping more of the day than he is awake and she feels that he is frustrated with not being able to do anything that he used to do. She shared that the patient has told her multiple times over the past several weeks that if he keeps getting weaker she "should just let him ego". SHe shared that despite his progressive weakness and lethargy, he has remained lucid up to the day of admission. Discussed code status and helped her understand that CPR is only done after a person has and involves uncomfortable and invasive procedures that, if successful. have high risk of multiple complications including but not limited to rib fractures, pneumo/hemothorax, DIDIER, ventilator dependence, anoxic brain injury, and nursing home/permanent cognitive and functional deficits. Spouse made reference to patient's independent nature and recent poor quality of life, and shared that resuscitating him to a life that "would be less than what he was already not happy with" is probably not what he would want for himself. She shared that she has discussed this with both of their sons, and they seem to understand. I offered to bring he sons into conversation or have a family meeting to discuss in upcoming days. She politely declined. She shared that at this time she would like to continue full code, she will continue to think and discuss with her sons more this evening. (4) Palliative care by specialist: Met with pt and his at [facility] from 15:30 - 16:00 for ACP mtg. Introduced Palliative Medicine and explained our role in advanced care planning, symptom management and navigation through the progression of life limiting disease. Patient and/or family were receptive to palliative services for goals of care discussions. Reviewed we are different from hospice, a home health nurse visiting service. History of Present Illness Reason for Consultation: goals of care Requesting Physician: Adarsh Orozco DO Attending Physician: Adarsh Orozco DO History of Present Illness 89 year old medically complex male with PMHx significant for CHB s/p dual- chamber pacemaker (implanted 01/10/24), mild-moderate , HTN, HLD, T2DM, and former smoker presented to [facility] on 10/25/24 for evaluation of altered mental status and chest pain. Work-up upon admission remarkable for elevated high- sensitivity troponins and elevated D-dimer. EKG demonstrated V-pacing with rate 71 bpm and QTc 506 ms. Neck CTA (10/25/24) demonstrated non-calcified atherosclerotic plaque producing severe stenosis in the proximal segment of the right ICA. CTA Chest (10/26/24) demonstrated no acute PE, mild interstitial pulm onary edema, and moderate-severe coronary artery calcifications. Pt was admitted for AMS/ACS and cardiology consult with recs to continue with conservative medical management given advanced age and poor cognitive function. Pt found to have retroperitoneal hematoma after initiation of heparin drip. Allergies Allergy/AdvReac Type Severity Reaction Status Date / Time clindamycin Allergy Unknown unknown--per Verified 01/08/24 20:31 [facility] amoxicillin AdvReac Severe JAUNDICE Verified 01/08/24 20:31 clavulanic acid AdvReac Severe JAUNDICE Verified 01/08/24 20:31 dicyclomine [From Bentyl] AdvReac Intermediate dizziness, Verified 01/08/24 20:31 light headedness isosorbide AdvReac Intermediate PAIN IN Verified 01/08/24 20:31 LIMBS DIARRHEA oxycodone AdvReac Intermediate Confusion Verified 01/08/24 20:31 pregabalin [From Lyrica] AdvReac Intermediate Confusion Verified 01/08/24 20:31 Home Medications Medication Instructions Recorded Confirmed Type cholecalciferol (vitamin D3) 25 1,000 unit PO QAM 08/21/18 10/25/24 History mcg (1,000 unit) tablet (Vitamin D3) levothyroxine 75 mcg tablet 75 mcg PO DAILYBB 08/21/18 10/25/24 History nitroglycerin 0.4 mg sublingual 0.4 mg sublingual Q5W PRN Chest 08/21/18 10/25/24 History tablet Pain omeprazole 20 mg tablet,delayed 20 mg PO QAM 08/21/18 10/25/24 History release tamsulosin 0.4 mg capsule 0.4 mg PO HS 08/21/18 10/25/24 History finasteride 5 mg tablet 5 mg PO QAM 10/02/19 10/25/24 History acetaminophen 500 mg tablet 500 mg PO Q8 PRN Fever >38C Or 02/23/22 10/25/24 History Pain, mild duloxetine 60 mg capsule,delayed 60 mg PO QAM 02/23/22 10/25/24 History release sprinkle rosuvastatin 10 mg tablet 10 mg PO HS 02/23/22 10/25/24 History meclizine 25 mg tablet 25 mg PO TID PRN DIZZY 07/19/23 10/25/24 History cyanocobalamin (vitamin B-12) 1,000 mcg PO QAM 10/25/24 10/25/24 History 1,000 mcg tablet (Vitamin B-12) furosemide 20 mg tablet 20 mg PO 3XWK 10/25/24 10/25/24 History metoprolol succinate 25 mg 25 mg PO AMHS 10/25/24 10/25/24 History tablet,extended release 24 hr vitamin-ferrous sulfate 1 tab PO QAM 10/25/24 10/25/24 History 27 mg iron-folic acid 0.8 mg tablet Patient History Medical History (Updated 10/27/24 @ 16:[address]) Recurrent falls Dysphagia BPH (benign prostatic hyperplasia) History of shingles over 10 yrs ago History of prostate cancer RADIATION ONLY 2010 Dysphagia Anxiety and depression Spinal stenosis Osteoarthritis Degenerative disc disease Chronic back pain Chronic kidney disease, stage 3 follows with [facility] GERD (gastroesophageal reflux disease) History of esophageal dilatation Hypothyroidism Radiation proctitis Hearing deficit Stroke 2011--no deficits, no neurologist Hyperlipidemia Cardiac murmur FOLLOWS WITH DR. HITCHCOCK Sleep apnea cpap Surgical History (Updated 02/11/24 @ 00:07 by Agapito Tellez) History of craniotomy X 2 (AT [facility])---d/t hemorrhagic stroke and for a pseudomeningocele repair History of anesthesia reaction woke up paranoid and last for 3 days after both brain surgeries History of total left hip replacement History of total right hip replacement History of prostate biopsy History of colonoscopy History of esophagogastroduodenoscopy (EGD) History of appendectomy History of phacoemulsification of cataract of both eyes with intraocular lens implantation bilat History of tooth extraction all teeth Family History Mother Family history of diabetes mellitus Other No family history of adverse response to anesthesia Social History Smoking Status: Never smoker Tobacco Type: Cigarettes Second Hand Exposure: No; Do You Dip or Chew Tobacco: No; Hx Alcohol Use: No Hx Substance Use: No Preferred Language: Guinean Communication Ability: asleep [employer]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 Beliefs That Will Affect Care: None Current Living Situation: Spouse Feels Safe at Home: Yes Assistive Devices: Cane, CPAP and Walker Review of Systems Review of Systems: Unobtainable due to cognitive status Physical Exam Constitutional: WD/WN, vitals as above Eyes: PERRL, conjunctivae normal, anicteric sclerae Neck: trachea midline, no thyromegaly Respiratory: normal respiratory effort, lungs clear to auscultation Gastrointestinal (Abdomen): normal bowel sounds, soft, nontender, no hepatosplenomegaly Musculoskeletal: no cyanosis or clubbing, extremities motor strength 5/5 Neurologic: + confused Speech / Cognition: + abno rmal cognition +lethargy Psychiatric: Orientation: oriented to person; + not alert, + not oriented to place and + not oriented to time Insight: + poor insight Results & Data Vital Signs (Past 12 Hours) Vital Signs Temp Pulse Pulse Resp BP BP Pulse Ox 10/27/24 07:50 36.8 C 101 H 16 155/96 H 92 10/27/24 03:22 36.8 C 93 H 21 144/93 H 93 10/26/24 23:43 36.9 C 106 H 21 136/89 92 10/26/24 23:21 115 H O2 Del Method O2 Flow Rate 10/27/24 07:50 Room Air 10/27/24 03:22 Nasal Cannula 2 10/26/24 23:43 Nasal Cannula 2 10/26/24 23:21 Laboratory Results Abnormal lab results 10/26/24 10/26/24 10/26/24 Range/Units 09:20 10:42 11:16 WBC (4.8-10.8) K/ul RBC (4.70-6.10) M/uL Hgb (14.0-18.0) g/dl Hct (42.0-52.0) % Heparin Anti-Xa, Unfract 0.27 L (0.3-0.7) IU/ml BUN (6-23) mg/dl Creatinine (0.6-1.4) mg/dl Glucose (70-99(Fasting)) mg/dl POC Glucose 142 H (70-99) mg/dl Troponin I High Sens 879.9 H* D 1528.8 H* D (0-20) pg/ml 10/26/24 10/26/24 10/26/24 Range/Units 15:06 16:32 20:03 WBC (4.8-10.8) K/ul RBC (4.70-6.10) M/uL Hgb (14.0-18.0) g/dl Hct (42.0-52.0) % Heparin Anti-Xa, Unfract (0.3-0.7) IU/ml BUN (6-23) mg/dl Creatinine (0.6-1.4) mg/dl Glucose (70-99(Fasting)) mg/dl POC Glucose 132 H 119 H (70-99) mg/dl Troponin I High Sens 2228.8 H* D (0-20) pg/ml 10/26/24 10/27/24 10/27/24 Range/Units 21:11 00:28 05:47 WBC 11.47 H (4.8-10.8) K/ul RBC 3.96 L (4.70-6.10) M/uL Hgb 12.5 L 12.4 L (14.0-18.0) g/dl Hct 36.0 L 35.2 L (42.0-52.0) % Heparin Anti-Xa, Unfract (0.3-0.7) IU/ml BUN 31 H (6-23) mg/dl Creatinine 2.55 H D (0.6-1.4) mg/dl Glucose 115 H (70-99(Fasting)) mg/dl POC Glucose (70-99) mg/dl Troponin I High Sens 2997.3 H* D (0-20) pg/ml 10/27/24 10/27/24 10/27/24 Range/Units 05:50 07:21 07:45 WBC (4.8-10.8) K/ul RBC (4.70-6.10) M/uL Hgb 12.6 L (14.0-18.0) g/dl Hct (42.0-52.0) % Heparin Anti-Xa, Unfract < 0.10 L (0.3-0.7) IU/ml BUN (6-23) mg/dl Creatinine (0.6-1.4) mg/dl Glucose (70-99(Fasting)) mg/dl POC Glucose 123 H (70-99) mg/dl Troponin I High Sens (0-20) pg/ml Diagnostic Findings Chest X-Ray 10/25/24 22:05 Exam(s): XR CXR 1 VIEW EXAM: XR Chest, 1 View CLINICAL HISTORY: Reason for exam: neuro deficit, acute stroke suspected. TECHNIQUE: Frontal view of the chest. COMPARISON: 03/14/2024 FINDINGS: Lungs: No consolidation. Pleural space: No significant pleural effusion. No pneumothorax. Heart: No cardiomegaly or pulmonary vascular congestion. Bones/joints: No acute fracture. No dislocation. Tubes, lines and devices: Left chest wall dual lead AICD-pacemaker. IMPRESSION: No acute findings in the chest. Electronically signed by: Evie Maria M.D. 10/25/24 23:[address] 10/25/24 22:05 CR Exam(s): CT HEAD Without Contrast EXAM: CT Head Without Intravenous Contrast CLINICAL HISTORY: Reason for exam: neuro deficit, acute stroke suspected. TECHNIQUE: Axial computed tomography images of the head/brain without intravenous contrast. CTDI is 37.42 mGy and DLP is 624.41 mGy-cm. Automated exposure control was utilized for the study. A dose lowering technique was utilized adhering to the principles of ALARA. COMPARISON: No relevant prior studies available. FINDINGS: Brain: Left cerebellar encephalomalacia/resection cavity. West-white matter differentiation maintained. Generalized parenchymal volume loss and chronic small-vessel ischemic changes. No acute hemorrhage. No mass effect or midline shift. Ventricles: No hydrocephalus. Bones/joints: Left suboccipital craniectomy. No skull fracture. Soft tissues: Unremarkable. Vasculature: Intracranial atherosclerosis. Sinuses: Unremarkable as visualized. Mastoid air cells: No significant mastoid effusion. Orbits: Lens replacements. IMPRESSION: No acute intracranial process. Communications: Call Doctor Stroke Electronically signed by: Evie Maria M.D. 10/25/24 22:44 PM Head CTA 10/25/24 22:05 CR Exam(s): CTA HEAD With Contrast IV Amt: 119ml optiray 320 EXAM: CT Angiography Head With Intravenous Contrast CLINICAL HISTORY: Reason for exam: neuro deficit, acute stroke suspected. TECHNIQUE: Axial computed tomographic angiography images of the head with intravenous contrast. CTDI is 37.42 mGy and DLP is 624.41 mGy-cm. Automated exposure control was utilized for the study. A dose lowering technique was utilized adhering to the principles of ALARA. MIP reconstructed images were created and reviewed. CONTRAST: Patient received 119ml optiray 320 of IV contrast COMPARISON: Same-day head CT FINDINGS: Limitations: Motion artifact. Right internal carotid artery: No acute findings. Intracranial segment is patent with no significant stenosis. No aneurysm. Right anterior cerebral artery: Unremarkable. No occlusion or significant stenosis. No aneurysm. Right middle cerebral artery: Unremarkable. No occlusion or significant stenosis. No aneurysm. Right posterior cerebral artery: Unremarkable. No occlusion or significant stenosis. No aneurysm. Right vertebral artery: Unremarkable as visualized. Left internal carotid artery: No acute findings. Intracranial segment is patent with no significant stenosis. No aneurysm. Left anterior cerebral artery: Unremarkable. No occlusion or significant stenosis. No aneurysm. Left middle cerebral artery: Unremarkable. No occlusion or significant stenosis. No aneurysm. Left posterior cerebral artery: Unremarkable. No occlusion or significant stenosis. No aneurysm. Left vertebral artery: Unremarkable as visualized. Basilar artery: Unremarkable. No occlusion or significant stenosis. No aneurysm. IMPRESSION: Patent intracranial circulation. Communications: Call Doctor Stroke Electronically signed by: Evie Maria M.D. 10/25/24 22:43 PM Neck CTA 10/25/24 22:05 CR Exam(s): CTA NECK With Contrast IV Amt: 119ml optiray 320 EXAM: CT Angiography Neck With Intravenous Contrast CLINICAL HISTORY: Reason for exam: neuro deficit, acute stroke suspected. TECHNIQUE: Routine carotid CT angiography protocol was performed with intravenous contrast. NASCET criteria using the distal ICAs for comparison were used for evaluation of stenoses. CTDI is 26.99 mGy and DLP is 497.85 mGy-cm. Automated exposure control was utilized for the study. A dose lowering technique was utilized adhering to the principles of ALARA. MIP reconstructed images were created and reviewed. CONTRAST: Patient received 119ml optiray 320 of IV contrast COMPARISON: None. FINDINGS: Limitations: Motion. VASCULATURE: Right common carotid artery: Unremarkable. No occlusion or significant stenosis. No dissection. Right internal carotid artery: Atherosclerotic plaque producing severe stenosis in the proximal segment of the right ICA. No dissection. Right external carotid artery: Unremarkable. No occlusion. Right vertebral artery: Unremarkable. No occlusion or significant stenosis. No dissection. Left common carotid artery: Unremarkable. No occlusion or significant stenosis. No dissection. Left internal carotid artery: Unremarkable. Extracranial segment is patent with no occlusion or significant stenosis. No dissection. Left external carotid artery: Unremarkable. No occlusion. Left vertebral artery: Unremarkable. No occlusion or significant stenosis. No dissection. NECK: Bones/joints: Degenerative change in the cervical spine. No acute fracture. Soft tissues: Unremarkable. Lung apices: Clear. CAROTID STENOSIS REFERENCE USING NASCET CRITERIA: % ICA stenosis = (1 - narrowest ICA diameter/diameter of distal cervical ICA) x 100. Mild - <50% stenosis. Moderate - 50-69% stenosis. Severe - 70-94% stenosis. Near occlusion - 95-99% stenosis. Occluded - 100% stenosis. IMPRESSION: Noncalcified atherosclerotic plaque producing severe stenosis in the proximal segment of the right ICA. Communications: Call Doctor Stroke Electronically signed by: Evie Marai M.D. 10/25/24 22:47 PM Chest CTA 10/26/24 01:40 HISTORY: Chest pain. TECHNIQUE: CT angiography of the chest was performed with IV contrast. Images are presented in axial, sagittal, and coronal reformats. Coronal and sagittal 3D MIP reconstructions are also provided. COMPARISON: Chest CT dated 03/14/2024. FINDINGS: Lungs: Mild interstitial pulmonary edema. Atelectasis or parenchymal scarring along the dependent aspect both lower lobes. No pneumothorax or effusion. Mild mucoid debris along the left aspect of the distal trachea. The central tracheobronchial tree is otherwise patent. There is mild diffuse bronchial wall thickening. Heart/Mediastinum: Top normal heart size. Coronary artery calcifications are present. Severe aortic valvular calcification. Mitral annular calcification. No suspicious mediastinal or hilar lymph nodes. Thoracic esophagus is unremarkable. Vasculature: The pulmonary arteries are well-evaluated to the level of the lobar vessels. The segmental and subsegmental vessels are limited due to respiratory motion artifact and contrast timing. No evidence of acute pulmonary embolism within the limitations. The main pulmonary artery is normal in caliber. No thoracic aortic aneurysm. Mild atherosclerotic vascular disease involving the aorta and arch vessels. Soft Tissues: No enlarged axillary lymph nodes. Pacer generator pack in the superior aspect of the ventral left chest wall. Upper Abdomen: Contrast is present in the renal collecting systems. Symmetric perinephric stranding is noted. The included upper abdomen is otherwise unremarkable. Bones: Severe/end-stage arthrosis of the glenohumeral joints.Degenerative changes of the spine.R emote healed rib fractures are noted. IMPRESSION: * No evidence of acute pulmonary embolism within the limitations of contrast timing and respiratory motion artifact. * Mild interstitial pulmonary edema. Top normal heart size. * Coronary artery calcifications are present. Moderate to severe aortic valve calcification. * Additional chronic and/or incidental findings as above. ACT 112: Positive. There are findings on this exam that require communication between the performing entity and the patient following Patient Test Result Information Act ([place] ACT 112) guidelines. Electronically signed by Stanley Elkins 10-26-2024 08:30 AM Venous Doppler Study 10/26/24 03:59 HISTORY: Lower extremity pain/edema. TECHNIQUE: Bilateral lower extremity venous Doppler evaluation for DVT. Grayscale, color Doppler, and spectral Doppler imaging was utilized. COMPARISON: None. FINDINGS: Right lower extremity: The common femoral vein and greater saphenous junction appear color Doppler patent and compressible. The deep femoral vein and femoral vein appear color Doppler patent and compressible. The popliteal vein appears color Doppler patent and compressible. The posterior tibial, peroneal, and anterior tibial veins appear color Doppler patent. Respiratory variation and augmentation is noted. Surrounding soft tissues are unremarkable. Left lower extremity: The common femoral vein and greater saphenous junction appear color Doppler patent and compressible. The deep femoral vein and femoral vein appear color Doppler patent and compressible. The popliteal vein, posterior tibial vein, peroneal vein, and anterior tibial vein appear color Doppler patent and compressible. Respiratory variation and augmentation is noted. The surrounding soft tissues are unremarkable. IMPRESSION: No evidence of lower extremity DVT. Electronically signed by Stanley Elkins 10-26-2024 13:06 PM Abdomen/Pelvis CT 10/26/24 19:48 Exam(s): CT ABDOMEN + PELVIS Without Contrast EXAM: CT Abdomen and Pelvis Without Intravenous Contrast CLINICAL HISTORY: back pain, heparin. TECHNIQUE: Axial computed tomography images of the abdomen and pelvis without intravenous contrast. CTDI is 33.41 mGy and DLP is 1763.9 mGy-cm. Automated exposure control was utilized for the study. A dose lowering technique was utilized adhering to the principles of ALARA. COMPARISON: CT abdomen and pelvis with contrast dated 03/14/2024 FINDINGS: Artifacts: Scatter artifact likely related to patient's arm position. Limitations: There is diffuse respiratory artifact, which degrades image quality throughout the examination. Lung bases: Unremarkable. No mass. No consolidation. Pleural space: Curvilinear changes noted at the lung bases. Evaluation is limited by respiratory artifact. No pleural effusion. ABDOMEN: Liver: Unremarkable. Gallbladder and bile ducts: Excreted contrast in the gallbladder. No gallbladder wall thickening or biliary dilatation. No calcified stones. Pancreas: Unremarkable. No ductal dilation. Spleen: The spleen is grossly unremarkable, accounting for limitations. Adrenals: Unremarkable. No mass. Kidneys and ureters: The kidneys demonstrate enhancement presumably from recent CTA examination of the head. No hydronephrosis. Evaluation for nephrolithiasis is limited with excreted contrast in the renal collecting systems and throughout the ureters. Stomach and bowel: No bowel obstruction. Evaluation of the bowel is limited without contrast and respiratory artifact. Mild stool burden. No appreciable diverticulitis. PELVIS: Appendix: The appendix is not clearly delineated. Bladder: The bladder is moderately distended. No bladder wall thickening or bladder stones. Reproductive: Unremarkable as visualized. ABDOMEN and PELVIS: Intraperitoneal space: Unremarkable. No free air. No significant fluid collection. Retroperitoneal space: There is hyperdense fat stranding involving the retroperitoneum bilaterally, right side slightly greater than left. No well-defined hematoma. Bones/joints: Bilateral hip arthroplasties noted. No acute osseous abnormality. Soft tissues: Unremarkable. Vasculature: Subtle ectasia with atherosclerotic calcification of the aorta. However, there appears to be preservation of the fat plane surrounding the aorta without evidence for periaortic hematoma. No abdominal aortic aneurysm. Lymph nodes: Unremarkable. No enlarged lymph nodes. IMPRESSION: There is hyperdense fat stranding involving the retroperitoneum bilaterally, right side slightly greater than left. No well-defined hematoma. The appearance suggests retroperitoneal hemorrhagic products. The source of the hemorrhage is not clearly delineated on this noncontrast examination. If the patient fails to respond to potential fluid resuscitation efforts, there should be a low threshold for repeat imaging. Electronically signed by: Nile Irwin MD 10/27/24 00:00 AM Medications Administered Current Inpatient Medications Cyanocobalamin (Cyanocobalamin (B-12) 500 Mcg Tablet) 1,000 mcg PO QAM [facility] Stop: 11/25/24 08:59 Last Admin: 10/26/24 08:08 Dose: Not Given Dextrose (Dextrose 50% 50 Ml Syringe) 25 - 50 ml IV UD PRN; Protocol PRN Reason: Hypoglycemia Protocol Stop: 11/25/24 00:16 Duloxetine HCl (Duloxetine Hcl 60 Mg Cap) 60 mg PO QAM HEATH[facility] Stop: 11/25/24 08:59 Last Admin: 10/26/24 08:08 Dose: Not Given Finasteride (Finasteride 5 Mg Tab) 5 mg PO QAM [facility]ATH[facility] Stop: 11/25/24 08:59 Last Admin: 10/26/24 08:08 Dose: Not Given Glucagon (Glucagon For Inj 1 Mg Vial) 1 mg SQ UD PRN; Protocol PRN Reason: Hypoglycemia Protocol Stop: 11/25/24 00:16 Glucose (Glucose 40% Gel 15 Gm Tube) 15 - 30 gm PO UD PRN; Protocol PRN Reason: Hypoglycemia Protocol Stop: 11/25/24 00:16 Glucose (Glucose 10 Tab/Tube) 4 - 8 tab PO UD PRN; Protocol PRN Reason: Hypoglycemia Protocol Stop: 11/25/24 00:16 Heparin Sodium/Dextrose (Heparin 34354 Unit/500 Ml D5w) 25,000 units in 500 mls @ 0 mls/hr IV .Q0M [facility]ATH[facility]; Protocol Stop: 11/25/24 04:14 Last Titration: 10/26/24 19:45 Dose: 0 units/hr, 0 mls/hr Lactated Ringer's (Lr) 1,000 mls @ 80 mls/hr IV .[id number] [facility] Stop: 10/30/24 07:44 Last Admin: 10/27/24 08:44 Dose: 80 mls/hr Insulin Aspart (Insulin Aspart Per Unit Charge) 0 units SC ACHS [facility] Stop: 11/25/24 11:00 Last Admin: 10/27/24 07:42 Dose: Not Given Labetalol HCl (Labetalol Hcl Iv 5 Mg/Ml 20ml) 10 mg IV Q6H PRN PRN Reason: Hypertension SBP >180 Stop: 11/25/24 11:04 Levothyroxine Sodium (Levothyroxine Sodium 75 Mcg Tablet) 75 mcg PO DAILYBB [facility] Stop: 11/25/24 06:29 Last Admin: 10/27/24 06:58 Dose: Not Given Metoprolol Succinate (Metoprolol Succ 25mg Ext Rel Tab) 25 mg PO AMHS [facility] Stop: 11/25/24 08:59 Last Admin: 10/26/24 21:51 Dose: 25 mg Miscellaneous (Carbohydrates For Hypoglycemia ) 15 - 30 gm PO UD PRN PRN Reason: Hypoglycemia Protocol Stop: 11/25/24 00:16 Olanzapine (Olanzapine 10 Mg/2.1 Ml Sdv) 2.5 mg IM Q4H PRN PRN Reason: Agitation Stop: 11/24/24 23:16 Prenat Multivit/Preakness/Iron/Folic Ac ( Vitamin 1 Tab) 1 tab PO QAM [facility] Stop: 11/25/24 08:59 Last Admin: 10/26/24 08:11 Dose: Not Given Rosuvastatin Calcium (Rosuvastatin Calcium 10 Mg Tab) 10 mg PO HS [facility] Stop: 11/25/24 20:59 Last Admin: 10/26/24 21:55 Dose: Not Given Tamsulosin HCl (Tamsulosin Hcl 0.4 Mg Cap) 0.4 mg PO HS [facility] Stop: 11/25/24 20:59 Last Admin: 10/26/24 21:55 Dose: Not Given Vitamin D (Cholecalciferol 25 Mcg (1000 Units) Tab) 25 mcg PO QAM [facility] Stop: 11/25/24 08:59 Last Admin: 10/26/24 08:08 Dose: Not Given PG Care Time/CCT Total # of Minutes Spent Total Time Spent with Patient: Total time spent is greater than 50% in coordination of care (as documented) at patient's floor/unit and/or counseling patient: Advanced Care Planning 01309 Advanced Care Planning 30 [place] [address] IN/OBS CONSULT LVL 4,60M Patient Type New History Expanded Problem Focused Exam Expanded Problem Focused Medical Decision Making Moderate Complexity Diagnoses Lethargy R53.83 Delirium of mixed origin F05 Counseling regarding goals of care Z71.89 Palliative care by specialist Z51.5 Additional Codes Advanced Care Planning - 35899 Advanced Care Planning 30 Min: 88838 Advanced Care Planning 30 Min ([id number])
--- NOTE | 2024-10-27 09:46 | Hospitalist Progress Note ---
Date of Service October 27, 2024 Assessment & Plan (1) Atypical chest pain: Plan: 89 year old male with past medical history significant for CHB s/p dual-chamber pacemaker (implanted 01/10/24), mild-moderate , HTN, HLD, orthostatic hypotension, history of cerebellar hemorrhage s/p surgery, history of traumatic subdural hematoma, ABDI (on CPAP), DM Type II, history of adrenal insufficiency, hypothyroidism, chronic anemia, GERD, prostate cancer s/p radiation, BPH, CKD stage III, mild cognitive impairment, and former smoker who presents with chest pain and confusion. As per , patient reported chest pain yesterday, followed by confusion, given Nitro x 2 with no improvement, then called EMS. Per patient is not typically confused. #NSTEMI -H/O complete heart block s/p PPM; h/o moderate ; follows [facility] Cards -Trop initially 214->879->1528 -EKG Atrial-sensed ventricular-paced rhythm, 71 bpm, QTc 506 -D-dimer 2200-> Chest CTA no PE, Mild interstitial pulmonary edema, Coronary artery calcifications, Moderate to severe aortic valve calcification. -Type I NSTEMI -TTE showing EF 30% Plan -Developed back pain overnight. CT showing RP hematoma. Heparin drip DC -See below for RP management -Continue cardiac monitoring -Limited further options available. See GOC discussion below #RP hematoma -CT showing new blood products in RP space, concerning for developing RP hematoma -Hgb has remained stable -Unclear direct cause but likely worsening by heparin infusion Plan -He is a poor candidate for surgical or interventional procedures -Monitor Hgb -Transfuse < 7 -Heparin drip discontinued #GOC -15 minute GOC d/w on phone. explained the major issues currently being managed including NSTEMI, agitation, DIDIER. explained that heparin had to be discontinued due to the hematoma. Explained CPR and its risks, benefits. explained that if he were to require CPR, it is unlikely he would return to his prior self. She remains undecided on GOC. She will talk with her two sons who live out of state. reached out to palliative care and they will set up family meeting. Prognosis is very poor. #DIDIER -Suspect pre renal Plan -Start gentle IVF -Recheck BMP in AM -Avoid nephrotoxic agents if possible #Altered Mental Status * Head CT showing no acute intracranial process. * Suspect hospital acquired delirium in setting of metabolic encephalopathy from DIDIER/NSTEMI * Continue prn Zyprexa * Avoid Beer's list medications * Delirium precautions and reorientation techniques #Hypertensive Urgency/Emergency -unable to take PO at this time due to agitation -BP is acceptable given his degree of illness #ADBI * Requiring supplemental O2 today 2LPM, NAD * CPAP at home- continue HS here #Diabetes Mellitus * Home home oral medications, * well-controlled A1c of 5.16 March 2024 * BG goal 110-140 * Accuchecks Q6H today while NPO * SSI while inpatient #chronic anemia * Hgb 12 today, baseline 10 * Trend with AM labs #Hypothyroidism * euthyroid as of recent outpatient TSH * Continue levothyroxine per home DVT Ppx: Heparin gtts; SCDs Code status: Full PCP: Dr. Lan Dispo: Admit for further management and workup I spent a total of 65 minutes coordinating, documenting, and providing care for this patient excluding time spent in the performance of separately billed services. This included personally reviewing all current laboratories and i maging studies, medical reconciliation, outpatient chart review and discussion with specialists Admission and Anticipated Discharge Date Admission Date: October 25, 2024 Subjective Not responding to questions. Review of Systems Review of Systems: unable to obtain Results & Data Results & Data Vital Signs (Past 12 Hours) Vital Signs Temp Pulse Pulse Resp BP BP Pulse Ox 10/27/24 07:50 36.8 C 101 H 16 155/96 H 92 10/27/24 03:22 36.8 C 93 H 21 144/93 H 93 10/26/24 23:43 36.9 C 106 H 21 136/89 92 10/26/24 23:21 115 H O2 Del Method O2 Flow Rate 10/27/24 07:50 Room Air 10/27/24 03:22 Nasal Cannula 2 10/26/24 23:43 Nasal Cannula 2 10/26/24 23:21 Laboratory Results Abnormal lab results 10/26/24 10/26/24 10/26/24 Range/Units 09:20 10:42 11:16 WBC (4.8-10.8) K/ul RBC (4.70-6.10) M/uL Hgb (14.0-18.0) g/dl Hct (42.0-52.0) % Heparin Anti-Xa, Unfract 0.27 L (0.3-0.7) IU/ml BUN (6-23) mg/dl Creatinine (0.6-1.4) mg/dl Glucose (70-99(Fasting)) mg/dl POC Glucose 142 H (70-99) mg/dl Troponin I High Sens 879.9 H* D 1528.8 H* D (0-20) pg/ml 10/26/24 10/26/24 10/26/24 Range/Units 15:06 16:32 20:03 WBC (4.8-10.8) K/ul RBC (4.70-6.10) M/uL Hgb (14.0-18.0) g/dl Hct (42.0-52.0) % Heparin Anti-Xa, Unfract (0.3-0.7) IU/ml BUN (6-23) mg/dl Creatinine (0.6-1.4) mg/dl Glucose (70-99(Fasting)) mg/dl POC Glucose 132 H 119 H (70-99) mg/dl Troponin I High Sens 2228.8 H* D (0-20) pg/ml 10/26/24 10/27/24 10/27/24 Range/Units 21:11 00:28 05:47 WBC 11.47 H (4.8-10.8) K/ul RBC 3.96 L (4.70-6.10) M/uL Hgb 12.5 L 12.4 L (14.0-18.0) g/dl Hct 36.0 L 35.2 L (42.0-52.0) % Heparin Anti-Xa, Unfract (0.3-0.7) IU/ml BUN 31 H (6-23) mg/dl Creatinine 2.55 H D (0.6-1.4) mg/dl Glucose 115 H (70-99(Fasting)) mg/dl POC Glucose (70-99) mg/dl Troponin I High Sens 2997.3 H* D (0-20) pg/ml 10/27/24 10/27/24 10/27/24 Range/Units 05:50 07:21 07:45 WBC (4.8-10.8) K/ul RBC (4.70-6.10) M/uL Hgb 12.6 L (14.0-18.0) g/dl Hct (42.0-52.0) % Heparin Anti-Xa, Unfract < 0.10 L (0.3-0.7) IU/ml BUN (6-23) mg/dl Creatinine (0.6-1.4) mg/dl Glucose (70-99(Fasting)) mg/dl POC Glucose 123 H (70-99) mg/dl Troponin I High Sens (0-20) pg/ml Diagnostic Findings Abdomen/Pelvis CT 10/26/24 19:48 Exam(s): CT ABDOMEN + PELVIS Without Contrast EXAM: CT Abdomen and Pelvis Without Intravenous Contrast CLINICAL HISTORY: back pain, heparin. TECHNIQUE: Axial computed tomography images of the abdomen and pelvis without intravenous contrast. CTDI is 33.41 mGy and DLP is 1763.9 mGy-cm. Automated exposure control was utilized for the study. A dose lowering technique was utilized adhering to the principles of ALARA. COMPARISON: CT abdomen and pelvis with contrast dated 03/14/2024 FINDINGS: Artifacts: Scatter artifact likely related to patient's arm position. Limitations: There is diffuse respiratory artifact, which degrades image quality throughout the examination. Lung bases: Unremarkable. No mass. No consolidation. Pleural space: Curvilinear changes noted at the lung bases. Evaluation is limited by respiratory artifact. No pleural effusion. ABDOMEN: Liver: Unremarkable. Gallbladder and bile ducts: Excreted contrast in the gallbladder. No gallbladder wall thickening or biliary dilatation. No calcified stones. Pancreas: Unremarkable. No ductal dilation. Spleen: The spleen is grossly unremarkable, accounting for limitations. Adrenals: Unremarkable. No mass. Kidneys and ureters: The kidneys demonstrate enhancement presumably from recent CTA examination of the head. No hydronephrosis. Evaluation for nephrolithiasis is limited with excreted contrast in the renal collecting systems and throughout the ureters. Stomach and bowel: No bowel obstruction. Evaluation of the bowel is limited without contrast and respiratory artifact. Mild stool burden. No appreciable diverticulitis. PELVIS: Appendix: The appendix is not clearly delineated. Bladder: The bladder is moderately distended. No bladder wall thickening or bladder stones. Reproductive: Unremarkable as visualized. ABDOMEN and PELVIS: Intraperitoneal space: Unremarkable. No free air. No significant fluid collection. Retroperitoneal space: There is hyperdense fat stranding involving the retroperitoneum bilaterally, right side slightly greater than left. No well-defined hematoma. Bones/joints: Bilateral hip arthroplasties noted. No acute osseous abnormality. Soft tissues: Unremarkable. Vasculature: Subtle ectasia with atherosclerotic calcification of the aorta. However, there appears to be preservation of the fat plane surrounding the aorta without evidence for periaortic hematoma. No abdominal aortic aneurysm. Lymph nodes: Unremarkable. No enlarged lymph nodes. IMPRESSION: There is hyperdense fat stranding involving the retroperitoneum bilaterally, right side slightly greater than left. No well-defined hematoma. The appearance suggests retroperitoneal hemorrhagic products. The source of the hemorrhage is not clearly delineated on this noncontrast examination. If the patient fails to respond to potential fluid resuscitation efforts, there should be a low threshold for repeat imaging. Electronically signed by: Nile Irwin MD 10/27/24 00:00 AM
--- NOTE | 2024-10-27 18:07 | Cardiology Progress Note ---
Date of Service October 27, 2024 Assessment & Plan (1) Atypical chest pain: (2) Coronary artery calcification: (3) Heart block AV third degree: (4) Cardiac pacemaker: (5) Hyperlipidemia: Plan 89 year old medically complex male with PMHx significant for CHB s/p dual-chamber pacemaker (implanted 01/10/24), mild-moderate , HTN, HLD, T2DM, and former smoker presented to [facility] on 10/25/24 for evaluation of altered mental status and chest pain. Work-up upon admission remarkable for elevated high- sensitivity troponins (9.4 - 879.9-1528) and elevated D-dimer. EKG demonstrated V-pacing with rate 71 bpm and QTc 506 ms. Neck CTA (10/25/24) demonstrated non- calcified atherosclerotic plaque producing severe stenosis in the proximal segment of the right ICA. CTA Chest (10/26/24) demonstrated no acute PE, mild interstitial pulmonary edema, and moderate-severe coronary artery blanca cifications. NSTEMI HTN - urgency -> better Severe CM with LVEF of 30 to 35% (echo - 10/26/24) - likely ischemic AMS DM ABDI Anemia Aortic stenosis ? Dementia CHB S/P PPM ASA 81 mg po daily adjust anti-HTN meds keeping systolic BP between 100-140 mmHg metoprolol statin correct and f/u electrolytes f/u renal function DVT prophylaxis conservative medical management at this time given advanced age and poor cognitive function ?NIKKI - defer to primary Admission and Anticipated Discharge Date Admission Date: October 27, 2024 Subjective Patient on exam is lying in bed in NAD; non-communicative Review of Systems Review of Systems: See HPI for pertinent positives. All others negative other than those noted in the HPI. Physical Exam Physical Exam: Vital signs within normal limits as above. General: Well developed and nourished. No acute distress. A+Ox3. HEENT: normal conjunctiva anicteric sclera NECK: Trachea midline. No thyromegaly. No carotid bruits. No JVD. Carotid upstrokes are brisk. Heart: S1 and S2. Grade II/ systolic murmur auscultated along left sternal border. No rubs or gallops. PMI non displaced. Lungs: No acute respiratory distress. no rales. No wheezes. Abdomen: Normal bowel sounds. Soft. Nontender. No abdominal bruits. Extremities: pp+. No edema. No clubbing or cyanosis. Skin: Warm and dry. NEURO: non-communicative Results & Data Vital Signs (Past 12 Hours) Vital Signs Vital Signs Temp 36.5 C 10/27/24 15:46 Pulse 105 H 10/27/24 15:46 Resp 18 10/27/24 15:46 BP 137/73 10/27/24 15:46 Pulse Ox 87 L 10/27/24 15:46 O2 Del Method Room Air 10/27/24 15:46 O2 Flow Rate 2 10/27/24 08:00 Intake & Output 10/26/24 10/27/24 10/27/24 18:59 06:59 18:59 Intake Total 1242.5 / 1496.85 254.35 / 1496.85 100 / 100 Output Total 175 / 175 Balance 1242.5 / 1321.85 79.35 / 1321.85 100 / 100 Weight 80.1 kg 79 kg Intake: IV 1242.5 / 1496.85 254.35 / 1496.85 Acetaminophen 1,000 mg In 100 100 / 200 100 / 200 ml @ 400 mls/hr IV NOW STA Rx#: [id number] Heparin 15616 Unit/500 ml D5w 142.5 / 296.85 154.35 / 296.85 25,000 units In 500 ml @ 1,050 UNITS/HR 21 mls/hr IV .[id number] [facility] Rx#:[id number] Sodium Chloride 0.9% 1,000 ml @ 1000 / 1000 60 mls/hr IV .[id number] [facility] Rx#: [id number] Oral 0 / 0 100 / 100 Output: Urine Amount (Catheter) 175 / 175 External 175 / 175 Other: # Unmeasured Voids 2 2 Weight Measurement Method Built in [facility] Built in [facility] Temp Pulse Pulse Resp BP Pulse Ox O2 Del Method 10/27/24 15:46 36.5 C 105 H 18 137/73 87 L Room Air 10/27/24 14:03 104 H 10/27/24 11:31 36.6 C 104 H 18 116/73 86 L Room Air 10/27/24 08:00 105 H 10/27/24 08:00 Nasal Cannula 10/27/24 07:50 36.8 C 101 H 16 155/96 H 92 Room Air O2 Flow Rate 10/27/24 15:46 09/22/25 14:03 10/27/24 11:31 10/27/24 08:00 10/27/24 08:00 2 10/27/24 07:50 Laboratory Results 10/27/24 10/27/24 10/27/24 Range/Units 16:07 15:17 11:16 WBC (4.8-10.8) K/ul RBC (4.70-6.10) M/uL Hgb 12.1 L (14.0-18.0) g/dl Hct (42.0-52.0) % MCV (80.0-100.0) fL MCH (25.0-34.0) pg MCHC (32.0-36.0) g/dL RDW Std Deviation (36.4-46.3) fL RDW Coeff of Darrick (11.5-14.5) % Plt Count (130-400) K/uL MPV (9.4-12.4) fL Heparin Anti-Xa, Unfract (0.3-0.7) IU/ml Sodium (136-145) mmol/L Potassium (3.5-5.1) mmol/L Chloride (98-107) mmol/L Carbon Dioxide (21-32) mmol/L Anion Gap (3-11) BUN (6-23) mg/dl Creatinine (0.6-1.4) mg/dl Est Cr Clr Drug Dosing ml/min eGFR BUN/Creatinine Ratio (10-20) Glucose (70-99(Fasting)) mg/dl POC Glucose 113 H 120 H (70-99) mg/dl Calcium (8.6-10.3) mg/dl Troponin I High Sens (0-20) pg/ml Blood Type Antibody Screen 10/27/24 10/27/24 10/27/24 Range/Units 07:45 07:21 05:50 WBC (4.8-10.8) K/ul RBC (4.70-6.10) M/uL Hgb 12.6 L (14.0-18.0) g/dl Hct (42.0-52.0) % MCV (80.0-100.0) fL MCH (25.0-34.0) pg MCHC (32.0-36.0) g/dL RDW Std Deviation (36.4-46.3) fL RDW Coeff of Darrick (11.5-14.5) % Plt Count (130-400) K/uL MPV (9.4-12.4) fL Heparin Anti-Xa, Unfract < 0.10 L (0.3-0.7) IU/ml Sodium (136-145) mmol/L Potassium (3.5-5.1) mmol/L Chloride (98-107) mmol/L Carbon Dioxide (21-32) mmol/L Anion Gap (3-11) BUN (6-23) mg/dl Creatinine (0.6-1.4) mg/dl Est Cr Clr Drug Dosing ml/min eGFR BUN/Creatinine Ratio (10-20) Glucose (70-99(Fasting)) mg/dl POC Glucose 123 H (70-99) mg/dl Calcium (8.6-10.3) mg/dl Troponin I High Sens (0-20) pg/ml Blood Type Antibody Screen 10/27/24 10/27/24 10/26/24 Range/Units 05:47 00:28 21:11 WBC 11.47 H (4.8-10.8) K/ul RBC 3.96 L (4.70-6.10) M/uL Hgb 12.4 L 12.5 L (14.0-18.0) g/dl Hct 35.2 L 36.0 L (42.0-52.0) % MCV 88.9 (80.0-100.0) fL MCH 31.3 (25.0-34.0) pg MCHC 35.2 (32.0-36.0) g/dL RDW Std Deviation 44.9 (36.4-46.3) fL RDW Coeff of Darrick 13.9 (11.5-14.5) % Plt Count 162 (130-400) K/uL MPV 11.2 (9.4-12.4) fL Heparin Anti-Xa, Unfract (0.3-0.7) IU/ml Sodium 137 (136-145) mmol/L Potassium 4.5 (3.5-5.1) mmol/L Chloride 105 (98-107) mmol/L Carbon Dioxide 21 (21-32) mmol/L Anion Gap 11 (3-11) BUN 31 H (6-23) mg/dl Creatinine 2.55 H D (0.6-1.4) mg/dl Est Cr Clr Drug Dosing 22.4 ml/min eGFR 23.54 BUN/Creatinine Ratio 12.2 (10-20) Glucose 115 H (70-99(Fasting)) mg/dl POC Glucose (70-99) mg/dl Calcium 9.2 (8.6-10.3) mg/dl Troponin I High Sens 2997.3 H* D (0-20) pg/ml Blood Type O Positive Antibody Screen NEGATIVE 10/26/24 10/26/24 Range/Units 20:03 18:18 WBC (4.8-10.8) K/ul RBC (4.70-6.10) M/uL Hgb (14.0-18.0) g/dl Hct (42.0-52.0) % MCV (80.0-100.0) fL MCH (25.0-34.0) pg MCHC (32.0-36.0) g/dL RDW Std Deviation (36.4-46.3) fL RDW Coeff of Darrick (11.5-14.5) % Plt Count (130-400) K/uL MPV (9.4-12.4) fL Heparin Anti-Xa, Unfract 0.52 (0.3-0.7) IU/ml Sodium (136-145) mmol/L Potassium (3.5-5.1) mmol/L Chloride (98-107) mmol/L Carbon Dioxide (21-32) mmol/L Anion Gap (3-11) BUN (6-23) mg/dl Creatinine (0.6-1.4) mg/dl Est Cr Clr Drug Dosing ml/min eGFR BUN/Creatinine Ratio (10-20) Glucose (70-99(Fasting)) mg/dl POC Glucose 119 H (70-99) mg/dl Calcium (8.6-10.3) mg/dl Troponin I High Sens (0-20) pg/ml Blood Type Antibody Screen Diagnostic Findings Laboratory Results WBC 11.47 K/ul (4.8-10.8) H 10/27/24 05:47 RBC 3.96 M/uL (4.70-6.10) L 10/27/24 05:47 Hgb 12.1 g/dl (14.0-18.0) L 10/27/24 15:17 POC Hgb 11.2 g/dl (14.0-18.0) L 10/25/24 22:01 Hct 35.2 % (42.0-52.0) L 10/27/24 05:47 POC Hct 33 % (42-52) L 10/25/24 22:01 MCV 88.9 fL (80.0-100.0) 10/27/24 05:47 MCH 31.3 pg (25.0-34.0) 10/27/24 05:47 MCHC 35.2 g/dL (32.0-36.0) 10/27/24 05:47 RDW Std Deviation 44.9 fL (36.4-46.3) 10/27/24 05:47 RDW Coeff of Darrick 13.9 % (11.5-14.5) 10/27/24 05:47 Plt Count 162 K/uL (130-400) 10/27/24 05:47 MPV 11.2 fL (9.4-12.4) 10/27/24 05:47 Immature Gran % (Auto) 0.4 % 10/26/24 05:27 Neut % (Auto) 84.7 % 10/26/24 05:27 Lymph % (Auto) 5.3 % 10/26/24 05:27 [place] % (Auto) 9.2 % 10/26/24 05:27 Eos % (Auto) 0.1 % 10/26/24 05:27 Baso % (Auto) 0.3 % 10/26/24 05:27 Neut # (Auto) 8.47 K/uL (1.40-6.50) H 10/26/24 05:27 Lymph # (Auto) 0.53 K/uL (1.20-3.40) L 10/26/24 05:27 [place] # (Auto) 0.92 K/uL (0.11-0.59) H 10/26/24 05:27 Eos # (Auto) 0.01 K/uL (0.00-0.50) 10/26/24 05:27 Baso # (Auto) 0.03 K/uL (0.00-0.20) 10/26/24 05:27 Immature Gran # (Auto) 0.04 K/uL (0.01-0.20) 10/26/24 05:27 PT 10.6 Seconds (9.0-12.0) 10/25/24 21:50 INR 1.0 (0.9-1.1) 10/25/24 21:50 APTT 27 Seconds (21-31) 10/25/24 21:50 PTT Ratio 1.0 10/25/24 21:50 D-Dimer 2200 ug/L FEU (0-500) H* 10/25/24 21:50 Heparin Anti-Xa, Unfract < 0.10 IU/ml (0.3-0.7) L 10/27/24 05:50 POC Sodium 139 mmol/L (135-144) 10/25/24 22:01 Sodium 137 mmol/L (136-145) 10/27/24 05:47 POC Potassium 3.9 mmol/L (3.3-5.0) 10/25/24 22:01 Potassium 4.5 mmol/L (3.5-5.1) 10/27/24 05:47 POC Chloride 104 mmol/L (101-112) 10/25/24 22:01 Chloride 105 mmol/L (98-107) 10/27/24 05:47 Carbon Dioxide 21 mmol/L (21-32) 10/27/24 05:47 POC Total CO2 21 mmol/L (24-31) L 10/25/24 22:01 Anion Gap 11 (3-11) 10/27/24 05:47 POC Anion Gap 18.0 mmol/L (16-25) 10/25/24 22:01 POC BUN 17 mg/dl (7-18) 10/25/24 22:01 BUN 31 mg/dl (6-23) H 10/27/24 05:47 Creatinine 2.55 mg/dl (0.6-1.4) H D 10/27/24 05:47 POC Creatinine 1.1 mg/dl (0.6-1.3) 10/25/24 22:01 Est Cr Clr Drug Dosing 22.4 ml/min 10/27/24 05:47 eGFR 23.54 10/27/24 05:47 BUN/Creatinine Ratio 12.2 (10-20) 10/27/24 05:47 Glucose 115 mg/dl (70-99(Fasting)) H 10/27/24 05:47 POC Glucose 113 mg/dl (70-99) H 10/27/24 16:07 POC Glucose (other) 84 mg/dl (70-99) 10/25/24 22:01 Calcium 9.2 mg/dl (8.6-10.3) 10/27/24 05:47 POC Ioniz Calcium Rakel 1.20 mmol/l (1.12-1.32) 10/25/24 22:01 Magnesium 2.1 mg/dl (1.7-2.4) 10/26/24 05:27 Total Bilirubin 0.6 mg/dl (0.2-1.0) 10/25/24 21:50 AST 19 U/L (13-39) 10/25/24 21:50 ALT 14 U/L (7-52) 10/25/24 21:50 Alkaline Phosphatase 88 U/L (34-104) 10/25/24 21:50 Ammonia 31.0 umol/L (18-72) 10/26/24 00:54 Troponin I High Sens 2997.3 pg/ml (0-20) H* D 10/26/24 21:11 Total Protein 7.7 gm/dl (6.0-8.3) 10/25/24 21:50 Albumin 4.0 gm/dl (3.4-5.0) 10/25/24 21:50 Globulin 3.7 gm/dl (2.5-4.0) 10/25/24 21:50 Albumin/Globulin Ratio 1.1 (0.9-2) 10/25/24 21:50 Urine Color Yellow 10/25/24 22:07 Urine Appearance Clear (Clear) 10/25/24 22:07 Urine pH 8.0 (4.5-7.5) H 10/25/24 22:07 Ur Specific Edgar 1.011 (1.000-1.030) 10/25/24 22:07 Urine Protein Negative (Negative) 10/25/24 22:07 Urine Glucose (UA) Negative (Negative) 10/25/24 22:07 Urine Ketones Negative (Negative) 10/25/24 22:07 Urine Blood Negative (Negative) 10/25/24 22:07 Urine Nitrite Negative (Negative) 10/25/24 22:07 Urine Bilirubin Negative (Negative) 10/25/24 22:07 Urine Urobilinogen Negative (Negative) 10/25/24 22:07 Ur Leukocyte Esterase Negative (Negative) 10/25/24 22:07 Urine Comment 10/25/24 22:07 Blood Type O Positive 10/27/24 00:28 Antibody Screen NEGATIVE 10/27/24 00:28 Impressions Chest X-Ray 10/25/24 22:05 Exam(s): XR CXR 1 VIEW EXAM: XR Chest, 1 View CLINICAL HISTORY: Reason for exam: neuro deficit, acute stroke suspected. TECHNIQUE: Frontal view of the chest. COMPARISON: 03/14/2024 FINDINGS: Lungs: No consolidation. Pleural space: No significant pleural effusion. No pneumothorax. Heart: No cardiomegaly or pulmonary vascular congestion. Bones/joints: No acute fracture. No dislocation. Tubes, lines and devices: Left chest wall dual lead AICD-pacemaker. IMPRESSION: No acute findings in the chest. Electronically signed by: Evie Maria M.D. 10/25/24 23:[address] 10/25/24 22:05 CR Exam(s): CT HEAD Without Contrast EXAM: CT Head Without Intravenous Contrast CLINICAL HISTORY: Reason for exam: neuro deficit, acute stroke suspected. TECHNIQUE: Axial computed tomography images of the head/brain without intravenous contrast. CTDI is 37.42 mGy and DLP is 624.41 mGy-cm. Automated exposure control was utilized for the study. A dose lowering technique was utilized adhering to the principles of ALARA. COMPARISON: No relevant prior studies available. FINDINGS: Brain: Left cerebellar encephalomalacia/resection cavity. West-white matter differentiation maintained. Generalized parenchymal volume loss and chronic small-vessel ischemic changes. No acute hemorrhage. No mass effect or midline shift. Ventricles: No hydrocephalus. Bones/joints: Left suboccipital craniectomy. No skull fracture. Soft tissues: Unremarkable. Vasculature: Intracranial atherosclerosis. Sinuses: Unremarkable as visualized. Mastoid air cells: No significant mastoid effusion. Orbits: Lens replacements. IMPRESSION: No acute intracranial process. Communications: Call Doctor Stroke Electronically signed by: Evie Maria M.D. 10/25/24 22:44 PM Head CTA 10/25/24 22:05 CR Exam(s): CTA HEAD With Contrast IV Amt: 119ml optiray 320 EXAM: CT Angiography Head With Intravenous Contrast CLINICAL HISTORY: Reason for exam: neuro deficit, acute stroke suspected. TECHNIQUE: Axial computed tomographic angiography images of the head with intravenous contrast. CTDI is 37.42 mGy and DLP is 624.41 mGy-cm. Automated exposure control was utilized for the study. A dose lowering technique was utilized adhering to the principles of ALARA. MIP reconstructed images were created and reviewed. CONTRAST: Patient received 119ml optiray 320 of IV contrast COMPARISON: Same-day head CT FINDINGS: Limitations: Motion artifact. Right internal carotid artery: No acute findings. Intracranial segment is patent with no significant stenosis. No aneurysm. Right anterior cerebral artery: Unremarkable. No occlusion or significant stenosis. No aneurysm. Right middle cerebral artery: Unremarkable. No occlusion or significant stenosis. No aneurysm. Right posterior cerebral artery: Unremarkable. No occlusion or significant stenosis. No aneurysm. Right vertebral artery: Unremarkable as visualized. Left internal carotid artery: No acute findings. Intracranial segment is patent with no significant stenosis. No aneurysm. Left anterior cerebral artery: Unremarkable. No occlusion or significant stenosis. No aneurysm. Left middle cerebral artery: Unremarkable. No occlusion or significant stenosis. No aneurysm. Left posterior cerebral artery: Unremarkable. No occlusion or significant stenosis. No aneurysm. Left vertebral artery: Unremarkable as visualized. Basilar artery: Unremarkable. No occlusion or significant stenosis. No aneurysm. IMPRESSION: Patent intracranial circulation. Communications: Call Doctor Stroke Electronically signed by: Evie Maria M.D. 10/25/24 22:43 PM Neck CTA 10/25/24 22:05 CR Exam(s): CTA NECK With Contrast IV Amt: 119ml optiray 320 EXAM: CT Angiography Neck With Intravenous Contrast CLINICAL HISTORY: Reason for exam: neuro deficit, acute stroke suspected. TECHNIQUE: Routine carotid CT angiography protocol was performed with intravenous contrast. NASCET criteria using the distal ICAs for comparison were used for evaluation of stenoses. CTDI is 26.99 mGy and DLP is 497.85 mGy-cm. Automated exposure control was utilized for the study. A dose lowering technique was utilized adhering to the principles of ALARA. MIP reconstructed images were created and reviewed. CONTRAST: Patient received 119ml optiray 320 of IV contrast COMPARISON: None. FINDINGS: Limitations: Motion. VASCULATURE: Right common carotid artery: Unremarkable. No occlusion or significant stenosis. No dissection. Right internal carotid artery: Atherosclerotic plaque producing severe stenosis in the proximal segment of the right ICA. No dissection. Right external carotid artery: Unremarkable. No occlusion. Right vertebral artery: Unremarkable. No occlusion or significant stenosis. No dissection. Left common carotid artery: Unremarkable. No occlusion or significant stenosis. No dissection. Left internal carotid artery: Unremarkable. Extracranial segment is patent with no occlusion or significant stenosis. No dissection. Left external carotid artery: Unremarkable. No occlusion. Left vertebral artery: Unremarkable. No occlusion or significant stenosis. No dissection. NECK: Bones/joints: Degenerative change in the cervical spine. No acute fracture. Soft tissues: Unremarkable. Lung apices: Clear. CAROTID STENOSIS REFERENCE USING NASCET CRITERIA: % ICA stenosis = (1 - narrowest ICA diameter/diameter of distal cervical ICA) x 100. Mild - <50% stenosis. Moderate - 50-69% stenosis. Severe - 70-94% stenosis. Near occlusion - 95-99% stenosis. Occluded - 100% stenosis. IMPRESSION: Noncalcified atherosclerotic plaque producing severe stenosis in the proximal segment of the right ICA. Communications: Call Doctor Stroke Electronically signed by: Evie Maria M.D. 10/25/24 22:47 PM Chest CTA 10/26/24 01:40 HISTORY: Chest pain. TECHNIQUE: CT angiography of the chest was performed with IV contrast. Images are presented in axial, sagittal, and coronal reformats. Coronal and sagittal 3D MIP reconstructions are also provided. COMPARISON: Chest CT dated 03/14/2024. FINDINGS: Lungs: Mild interstitial pulmonary edema. Atelectasis or parenchymal scarring along the dependent aspect both lower lobes. No pneumothorax or effusion. Mild mucoid debris along the left aspect of the distal trachea. The central tracheobronchial tree is otherwise patent. There is mild diffuse bronchial wall thickening. Heart/Mediastinum: Top normal heart size. Coronary artery calcifications are present. Severe aortic valvular calcification. Mitral annular calcification. No suspicious mediastinal or hilar lymph nodes. Thoracic esophagus is unremarkable. Vasculature: The pulmonary arteries are well-evaluated to the level of the lobar vessels. The segmental and subsegmental vessels are limited due to respiratory motion artifact and contrast timing. No evidence of acute pulmonary embolism within the limitations. The main pulmonary artery is normal in caliber. No thoracic aortic aneurysm. Mild atherosclerotic vascular disease involving the aorta and arch vessels. Soft Tissues: No enlarged axillary lymph nodes. Pacer generator pack in the superior aspect of the ventral left chest wall. Upper Abdomen: Contrast is present in the renal collecting systems. Symmetric perinephric stranding is noted. The included upper abdomen is otherwise unremarkable. Bones: Severe/end-stage arthrosis of the glenohumeral joints.Degenerative changes of the spine.R emote healed rib fractures are noted. IMPRESSION: * No evidence of acute pulmonary embolism within the limitations of contrast timing and respiratory motion artifact. * Mild interstitial pulmonary edema. Top normal heart size. * Coronary artery calcifications are present. Moderate to severe aortic valve calcification. * Additional chronic and/or incidental findings as above. ACT 112: Positive. There are findings on this exam that require communication between the performing entity and the patient following Patient Test Result Information Act ([place] ACT 112) guidelines. Electronically signed by Stanley Elkins 10-26-2024 08:30 AM Venous Doppler Study 10/26/24 03:59 HISTORY: Lower extremity pain/edema. TECHNIQUE: Bilateral lower extremity venous Doppler evaluation for DVT. Grayscale, color Doppler, and spectral Doppler imaging was utilized. COMPARISON: None. FINDINGS: Right lower extremity: The common femoral vein and greater saphenous junction appear color Doppler patent and compressible. The deep femoral vein and femoral vein appear color Doppler patent and compressible. The popliteal vein appears color Doppler patent and compressible. The posterior tibial, peroneal, and anterior tibial veins appear color Doppler patent. Respiratory variation and augmentation is noted. Surrounding soft tissues are unremarkable. Left lower extremity: The common femoral vein and greater saphenous junction appear color Doppler patent and compressible. The deep femoral vein and femoral vein appear color Doppler patent and compressible. The popliteal vein, posterior tibial vein, peroneal vein, and anterior tibial vein appear color Doppler patent and compressible. Respiratory variation and augmentation is noted. The surrounding soft tissues are unremarkable. IMPRESSION: No evidence of lower extremity DVT. Electronically signed by Stanley Elkins 10-26-2024 13:06 PM Abdomen/Pelvis CT 10/26/24 19:48 Exam(s): CT ABDOMEN + PELVIS Without Contrast EXAM: CT Abdomen and Pelvis Without Intravenous Contrast CLINICAL HISTORY: back pain, heparin. TECHNIQUE: Axial computed tomography images of the abdomen and pelvis without intravenous contrast. CTDI is 33.41 mGy and DLP is 1763.9 mGy-cm. Automated exposure control was utilized for the study. A dose lowering technique was utilized adhering to the principles of ALARA. COMPARISON: CT abdomen and pelvis with contrast dated 03/14/2024 FINDINGS: Artifacts: Scatter artifact likely related to patient's arm position. Limitations: There is diffuse respiratory artifact, which degrades image quality throughout the examination. Lung bases: Unremarkable. No mass. No consolidation. Pleural space: Curvilinear changes noted at the lung bases. Evaluation is limited by respiratory artifact. No pleural effusion. ABDOMEN: Liver: Unremarkable. Gallbladder and bile ducts: Excreted contrast in the gallbladder. No gallbladder wall thickening or biliary dilatation. No calcified stones. Pancreas: Unremarkable. No ductal dilation. Spleen: The spleen is grossly unremarkable, accounting for limitations. Adrenals: Unremarkable. No mass. Kidneys and ureters: The kidneys demonstrate enhancement presumably from recent CTA examination of the head. No hydronephrosis. Evaluation for nephrolithiasis is limited with excreted contrast in the renal collecting systems and throughout the ureters. Stomach and bowel: No bowel obstruction. Evaluation of the bowel is limited without contrast and respiratory artifact. Mild stool burden. No appreciable diverticulitis. PELVIS: Appendix: The appendix is not clearly delineated. Bladder: The bladder is moderately distended. No bladder wall thickening or bladder stones. Reproductive: Unremarkable as visualized. ABDOMEN and PELVIS: Intraperitoneal space: Unremarkable. No free air. No significant fluid collection. Retroperitoneal space: There is hyperdense fat stranding involving the retroperitoneum bilaterally, right side slightly greater than left. No well-defined hematoma. Bones/joints: Bilateral hip arthroplasties noted. No acute osseous abnormality. Soft tissues: Unremarkable. Vasculature: Subtle ectasia with atherosclerotic calcification of the aorta. However, there appears to be preservation of the fat plane surrounding the aorta without evidence for periaortic hematoma. No abdominal aortic aneurysm. Lymph nodes: Unremarkable. No enlarged lymph nodes. IMPRESSION: There is hyperdense fat stranding involving the retroperitoneum bilaterally, right side slightly greater than left. No well-defined hematoma. The appearance suggests retroperitoneal hemorrhagic products. The source of the hemorrhage is not clearly delineated on this noncontrast examination. If the patient fails to respond to potential fluid resuscitation efforts, there should be a low threshold for repeat imaging. Electronically signed by: Nile Irwin MD 10/27/24 00:00 AM Medications Administered Home Medications Medication Instructions Recorded Confirmed Last Taken cholecalciferol (vitamin D3) 25 1,000 unit PO QAM 08/21/18 10/25/24 01/07/24 mcg (1,000 unit) tablet (Vitamin D3) levothyroxine 75 mcg tablet 75 mcg PO DAILYBB 08/21/18 10/25/24 01/07/24 nitroglycerin 0.4 mg sublingual 0.4 mg sublingual Q5W PRN Chest 08/21/18 10/25/24 08/22/18 12:00 tablet Pain omeprazole 20 mg tablet,delayed 20 mg PO QAM 08/21/18 10/25/24 01/07/24 release tamsulosin 0.4 mg capsule 0.4 mg PO HS 08/21/18 10/25/24 01/07/24 finasteride 5 mg tablet 5 mg PO QAM 10/02/19 10/25/24 01/07/24 acetaminophen 500 mg tablet 500 mg PO Q8 PRN Fever >38C Or 02/23/22 10/25/24 01/07/24 Pain, mild duloxetine 60 mg capsule,delayed 60 mg PO QAM 02/23/22 10/25/24 01/07/24 release sprinkle rosuvastatin 10 mg tablet 10 mg PO HS 02/23/22 10/25/24 01/08/24 meclizine 25 mg tablet 25 mg PO TID PRN DIZZY 07/19/23 10/25/24 01/06/24 cyanocobalamin (vitamin B-12) 1,000 mcg PO QAM 10/25/24 10/25/24 Unknown 1,000 mcg tablet (Vitamin B-12) furosemide 20 mg tablet 20 mg PO [id number] 10/25/24 10/25/24 Unknown metoprolol succinate 25 mg 25 mg PO AMHS 10/25/24 10/25/24 Unknown tablet,extended release 24 hr vitamin-ferrous sulfate 1 tab PO QAM 10/25/24 10/25/24 Unknown 27 mg iron-folic acid 0.8 mg tablet Active Medications Generic Name Dose Route Start Last Admin Trade Name Freq PRN Reason Stop Dose Admin Cyanocobalamin 1,000 mcg 10/26/24 09:00 10/27/24 09:20 Cyanocobalamin (B-12) 500 Mcg Tablet PO 11/25/24 08:59 1,000 mcg QAM HEATHER Administration Duloxetine HCl 60 mg 10/26/24 09:00 10/27/24 09:20 Duloxetine Hcl 60 Mg Cap PO 11/25/24 08:59 60 mg QAM HEATHER Administration Finasteride 5 mg 10/26/24 09:00 10/27/24 09:21 Finasteride 5 Mg Tab PO 11/25/24 08:59 5 mg QAM HEATHER Administration Heparin Sodium/Dextrose 25,000 units in 500 mls @ 0 mls/hr 10/26/24 04:15 10/26/24 19:45 Heparin 98458 Unit/500 Ml D5w IV 11/25/24 04:14 0 units/hr .Q0M HEATHER 0 mls/hr Titration Protocol 0 UNITS/HR Lactated Ringer's 1,000 mls @ 80 mls/hr 10/27/24 07:45 10/27/24 08:44 Lr IV 10/30/24 07:44 80 mls/hr .[id number] HEATHER Administration Insulin Aspart 0 units 10/26/24 21:00 10/27/24 16:48 Insulin Aspart Per Unit Charge SC 11/25/24 11:00 Not Given ACHS HEATHER Levothyroxine Sodium 75 mcg 10/26/24 06:30 10/27/24 06:58 Levothyroxine Sodium 75 Mcg Tablet PO 11/25/24 06:29 Not Given DAILYBB HEATHER Metoprolol Succinate 25 mg 10/26/24 09:00 10/27/24 09:21 Metoprolol Succ 25mg Ext Rel Tab PO 11/25/24 08:59 25 mg AMHS HEATHER Administration Prenat Multivit/Insulator Technician/Iron/Folic Ac 1 tab 10/26/24 09:00 10/27/24 09:20 Vitamin 1 Tab PO 11/25/24 08:59 1 tab QAM HEATHER Administration Rosuvastatin Calcium 10 mg 10/26/24 21:00 10/26/24 21:55 Rosuvastatin Calcium 10 Mg Tab PO 11/25/24 20:59 Not Given HS HEATHER Tamsulosin HCl 0.4 mg 10/26/24 21:00 10/26/24 21:55 Tamsulosin Hcl 0.4 Mg Cap PO 11/25/24 20:59 Not Given HS HEATHER Vitamin D 25 mcg 10/26/24 09:00 10/27/24 09:20 Cholecalciferol 25 Mcg (1000 Units) Tab PO 11/25/24 08:59 25 mcg QAM HEATHER Administration PG Care Time/CCT Total # of Minutes Spent Total Time Spent with Patient: Total time spent is greater than 50% in coordination of care (as documented) at patient's floor/unit and/or counseling patient: Coding Level of Care Code 92608 SUB INP/OBS CARE 3/50MIN Diagnoses Atypical chest pain R07.89 Coronary artery calcification I25.10 Heart block AV third degree I44.2 Cardiac pacemaker Z95.0 Hyperlipidemia E78.5
[2024-10-28 07:58] LABS: Hematocrit (blood only) 31.2 % (42.0-52.0); Hemoglobin 10.4 g/dl (14.0-18.0); Mean Corpuscular Hemoglobin 30.1 pg (25.0-34.0); Mean Corpuscular Volume 90.4 fL (80.0-100.0); Platelet Count 140 K/uL (130-400); RDW Standard Deviation 45.2 fL (36.4-46.3); Red Blood Count 3.45 M/uL (4.70-6.10); White Blood Count 10.58 K/ul (4.8-10.8)
[2024-10-28 08:15] LABS: Anion Gap 9.0 (3-11); Blood Urea Nitrogen 41.0 mg/dl (6-23); Calcium 8.9 mg/dl (8.6-10.3); Carbon Dioxide 22.0 mmol/L (21-32); Chloride 106.0 mmol/L (98-107); Creatinine Clr Calc Pharmacy 21.3 ml/min; Glucose 106.0 mg/dl (70-99(Fasting)); Potassium 4.3 mmol/L (3.5-5.1); Sodium 137.0 mmol/L (136-145)
--- NOTE | 2024-10-28 10:06 | Hospitalist Progress Note ---
Date of Service October 28, 2024 Assessment & Plan (1) Atypical chest pain: Plan: 89 year old male with past medical history significant for CHB s/p dual-chamber pacemaker (implanted 01/10/24), mild-moderate , HTN, HLD, orthostatic hypotension, history of cerebellar hemorrhage s/p surgery, history of traumatic subdural hematoma, ABDI (on CPAP), DM Type II, history of adrenal insufficiency, hypothyroidism, chronic anemia, GERD, prostate cancer s/p radiation, BPH, CKD stage III, mild cognitive impairment, and former smoker who presents with chest pain and confusion. As per , patient reported chest pain yesterday, followed by confusion, given Nitro x 2 with no improvement, then called EMS. Per patient is not typically confused. #NSTEMI -H/O complete heart block s/p PPM; h/o moderate ; follows [facility] -Trop initially 214->879->1528 -EKG Atrial-sensed ventricular-paced rhythm, 71 bpm, QTc 506 -D-dimer 2200-> Chest CTA no PE, Mild interstitial pulmonary edema, Coronary artery calcifications, Moderate to severe aortic valve calcification. -Type I NSTEMI -TTE showing EF 30% Plan -Heparin drip DC overnight on 10/26 due to new RP hematoma -See below for RP management -Continue cardiac monitoring -Limited further options available. See [facility] discussion below #RP hematoma -CT showing new blood products in RP space, concerning for developing RP hematoma -Hgb stable yesterday but started drifting down today, down from 12 yesterday to 10.4 today -Unclear direct cause but likely worsening by heparin infusion Plan -He is a poor candidate for surgical or interventional procedures -Monitor Hgb -Transfuse < 7 #[facility] 10/27- 15 minute GO d/w on phone. explained the major issues currently being managed including NSTEMI, agitation, DIDIER. explained that heparin had to be discontinued due to the hematoma. Explained CPR and its risks, benefits. explained that if he were to require CPR, it is unlikely he would return to his prior self. She remains undecided on [facility]. She will talk with her two sons who live out of state. reached out to palliative care and they will set up family meeting. Prognosis is very poor. 10/28- D/w palliative care yesterday, he remains full code per 's wishes. Called again today at [phone] but sent straight to . will try to reach out again later today #DIDIER -Suspect pre renal -Cr continues to worsen on IVF which were started 10/27 -Cr up to 2.7 today, 2.5 yesterday and 1.2 on admission Plan -Continue LR -If Cr continues to rise tomorrow, would then suspect ATN -Depending on GOC discussions with , would then consider nephrology consult -Recheck BMP in AM -Avoid nephrotoxic agents if possible #Altered Mental Status * Head CT showing no acute intracranial process. * Suspect hospital acquired delirium in setting of metabolic encephalopathy from DIDIER/NSTEMI * Continue prn Zyprexa * Avoid Beer's list medications * Delirium precautions and reorientation techniques #Hypertensive Urgency/Emergency -unable to take PO at this time due to agitation -BP is acceptable given his degree of illness #ABDI on room air * CPAP at home- continue HS here #Diabetes Mellitus * Home home oral medications, * well-controlled A1c of 5.16 March 2024 * BG goal 110-140 * SSI while inpatient #chronic anemia -Acute blood loss anemia in setting of chronic anemia -See above #Hypothyroidism * euthyroid as of recent outpatient TSH * Continue levothyroxine per home DVT Ppx: Heparin gtts; SCDs Code status: Full PCP: Dr. Lan Dispo: Admit for further management and workup I spent a total of 60 minutes coordinating, documenting, and providing care for this patient excluding time spent in the performance of separately billed services. This included personally reviewing all current laboratories and imaging studies, medical reconciliation, outpatient chart review and discussion with specialists Admission and Anticipated Discharge Date Admission Date: October 27, 2024 Subjective Patient on exam is lying in bed. he ate breakfast for RN. not answering questions to author Physical Exam Physical Exam: Vitals and labs reviewed General: Chronically ill appearing in NAD HEENT: EOMI, PERRLA Neck: Supple Cardiac: RRR no rubs gallops or murmurs Lungs: CTA no rhonchi wheezing or rales Abd: S NT ND BS positive : Deffered MSK: Full ROM. No obvious deformities Ext: No Edema cyanosis Skin: Warm, Dry Neuro: Alert but not answering questions Psych: calm Results & Data Results & Data Vital Signs (Past 12 Hours) Vital Signs Temp Pulse Pulse Resp BP BP Pulse Ox 10/28/24 08:50 104 H 10/28/24 07:36 36.9 C 97 H 18 117/73 92 10/28/24 07:00 10/28/24 03:16 37.0 C 105 H 16 114/74 92 10/28/24 00:00 10/27/24 23:21 36.7 C 114 H 15 124/82 93 10/27/24 23:18 116 H Pulse Ox O2 Del Method O2 Del Method O2 Flow Rate O2 Flow Rate 10/28/24 08:50 10/28/24 07:36 Room Air 10/28/24 07:00 Room Air 10/28/24 03:16 Room Air 10/28/24 00:00 94 Nasal Cannula 2 10/27/24 23:21 Nasal Cannula 2 10/27/24 23:18 Laboratory Results Abnormal lab results 10/27/24 10/27/24 10/27/24 Range/Units 11:16 15:17 16:07 RBC (4.70-6.10) M/uL Hgb 12.1 L (14.0-18.0) g/dl Hct (42.0-52.0) % BUN (6-23) mg/dl Creatinine (0.6-1.4) mg/dl Glucose (70-99(Fasting)) mg/dl POC Glucose 120 H 113 H (70-99) mg/dl 10/27/24 10/27/24 10/28/24 Range/Units 20:07 22:57 07:38 RBC (4.70-6.10) M/uL Hgb 11.4 L (14.0-18.0) g/dl Hct (42.0-52.0) % BUN (6-23) mg/dl Creatinine (0.6-1.4) mg/dl Glucose (70-99(Fasting)) mg/dl POC Glucose 117 H 122 H (70-99) mg/dl 10/28/24 Range/Units 07:39 RBC 3.45 L (4.70-6.10) M/uL Hgb 10.4 L (14.0-18.0) g/dl Hct 31.2 L (42.0-52.0) % BUN 41 H (6-23) mg/dl Creatinine 2.68 H (0.6-1.4) mg/dl Glucose 106 H (70-99(Fasting)) mg/dl POC Glucose (70-99) mg/dl
--- NOTE | 2024-10-28 14:06 | Palliative Care Progress Note ---
Date of Service October 28, 2024 Assessment & Plan (1) Lethargy: (2) Delirium of mixed origin: Plan: 10/26: Spouse states that just one day prior to admission pt was at his baseline cognitive function. She shared that he was trying to fix a leaking commode at home and got frustrated, told her he was angry because he cannot do anything anymore and lay down for a nap. The pt reportedly woke later complaining of CP and then had an acute change in mental status to point of "speaking gibberish". We discussed delirium at length, She shared that the patient has been sleeping for 18-20hours per day for several months. Discussed hypoactive delirium and helped her understand differences between dementia and delirium. Unfortunately there are no known medications to cure or shorten the duration of delirium; rather PRN antipsychotics are recommended to help with sleep/appetite/psychomotor agitation and hallucinations if these symptoms are causing significant distress and/or interfering with acute safety. Duration of delirium varies broadly; persistent delirium occurs with many patients exhibiting some symptoms of delirium at 6 months after symptom onset. Goal is to avoid medication management of behaviors if possible by maximizing non- pharmacologic strategies for behavioral management. Standard Delirium Care - Search for occult etiologies of delirium including toxic, metabolic, and infectious. Medication effects and drug/ETOH withdrawal should also be sought. - Avoid restraints other than lap belts. Redirection by family/friends, or medical staff is more effective and promotes recovery. - Encourage patient to wear glasses and hearing aides - Encourage 24 hour visitation from family/friends - Encourage family/friends to redirect patient to avoid need for meds/restraints - Avoids benzos - Use atypical neuroleptics in a low scheduled dose in combination with PRN for agitation - Low dose IV morphine can be used with caution if neuroleptics fail for acute delirium - Redirection by family, friends, and medical staff can be more effective and safer than medication use. - Pain causes delirium and should be addressed in a balanced, conservative, but effective manner. - During the day, patient should be awake. Lights should be on. TV should be on. Patient should be placed in chair with restraints if possible and allowed into ibarra or outside in wheelchair if can tolerate. - At night, lights should be dimmed and stimulation should be minimized. A scheduled dose of neuroleptic may be given at least 2 hours prior to typical onset of - Room noises can cause anxiety inducing hallucinations. If the room is loud, has atypical noises (construction, beeping, loud neighbor, etc) or patient is having negative reaction to ambient stimuli, patient should be moved to another room - Nutritional status should be addressed. Any nutritional deficits should be aggressively remediated. - High carbohydrate meals should be served - Please make family aware that delirium may last for weeks to months. - Patients with baseline Organic brain syndrome are more prone to delirium and take longer to recover - Patient with baseline organic brain syndromes, especially neurodegenerative ones like Dementia of Alzheimer's type may never recovery back to pre-morbid baseline. (3) Counseling regarding goals of care: Plan: Today: Attempt made to contact by phone, no answer, VM full. Requested BSRN notify me if arrives at bedside. 10/27: Met with pt and his at bedside. Pt mostly slept, but occasionally did interact in nonsensical/confused speech. We discussed at length the patient's acute and chronic medical conditions, general prognosis, treatment options, and goals of care. 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 One son lives in [place] and one in [place], but they remain involved in their life. She shared that the patient has had a progressive decline in his quality of life since February of this year. She shared that he no longer drives but was independent with his ADLs prior to admission. She shared that Bill has been sleeping more of the day than he is awake and she feels that he is frustrated with not being able to do anything that he used to do. She shared that the patient has told her multiple times over the past several weeks that if he keeps getting weaker she "should just let him ego". SHe shared that despite his progressive weakness and lethargy, he has remained lucid up to the day of admission. Discussed code status and helped her understand that CPR is only done after a person has and involves uncomfortable and invasive procedures that, if successful. have high risk of multiple complications including but not limited to rib fractures, pneumo/hemothorax, DIDIER, ventilator dependence, anoxic brain injury, and phosphoric acid operator/permanent cognitive and functional deficits. Spouse made reference to patient's independent nature and recent poor quality of life, and shared that resuscitating him to a life that "would be less than what he was already not happy with" is probably not what he would want for himself. She shared that she has discussed this with both of their sons, and they seem to understand. I offered to bring he sons into conversation or have a family meeting to discuss in upcoming days. She politely declined. She shared that at this time she would like to continue full code, she will continue to think and discuss with her sons more this evening. Patient exhibits current lack of decisional capacity and does require a proxy for medical decisions. Hospital does not have written documentation of patient wishes concerning his chosen proxy for medical decisions. Per PA [id number], in absence of written documentation of patient wishes, pt's proxy for medical decisions would be his . (4) Palliative care by specialist: Plan: Palliative care will continue to follow for ongoing ACP discussions and patient/family support. Plan as above Admission and Anticipated Discharge Date Admission Date: October 27, 2024 Subjective Assessed pt at bedside, he is less responsive today. He opened his eyes to gentle tactile stimuli, but did not engage verbally and drifted quickly off to sleep. VSS and NAD on RA. NAEON. No visitors present at bedside. Review of Systems Review of Systems: Unobtainable due to cognitive status Physical Exam Constitutional: WD/WN, vitals as above Eyes: PERRL, conjunctivae normal, anicteric sclerae Neck: trachea midline, no thyromegaly Respiratory: normal respiratory effort, lungs clear to auscultation Gastrointestinal (Abdomen): normal bowel sounds, soft, nontender, no hepatosplenomegaly Musculoskeletal: no cyanosis or clubbing, extremities motor strength 5/5 Neurologic: + confused Speech / Cognition: + abno rmal cognition +lethargy Psychiatric: Orientation: oriented to person; + not alert, + not oriented to place and + not oriented to time Insight: + poor insight Results & Data Vital Signs (Past 12 Hours) Vital Signs Temp Pulse Pulse Resp BP BP Pulse Ox 10/28/24 10:56 36.9 C 91 H 18 108/74 92 10/28/24 08:50 104 H 10/28/24 07:36 36.9 C 97 H 18 117/73 92 10/28/24 07:00 10/28/24 03:16 37.0 C 105 H 16 114/74 92 O2 Del Method 10/28/24 10:56 Room Air 10/28/24 08:50 10/28/24 07:36 Room Air 10/28/24 07:00 Room Air 10/28/24 03:16 Room Air Laboratory Results Abnormal lab results 10/27/24 10/27/24 10/27/24 Range/Units 15:17 16:07 20:07 RBC (4.70-6.10) M/uL Hgb 12.1 L (14.0-18.0) g/dl Hct (42.0-52.0) % BUN (6-23) mg/dl Creatinine (0.6-1.4) mg/dl Glucose (70-99(Fasting)) mg/dl POC Glucose 113 H 117 H (70-99) mg/dl 10/27/24 10/28/24 10/28/24 Range/Units 22:57 07:38 07:39 RBC 3.45 L (4.70-6.10) M/uL Hgb 11.4 L 10.4 L (14.0-18.0) g/dl Hct 31.2 L (42.0-52.0) % BUN 41 H (6-23) mg/dl Creatinine 2.68 H (0.6-1.4) mg/dl Glucose 106 H (70-99(Fasting)) mg/dl POC Glucose 122 H (70-99) mg/dl 10/28/24 10/28/24 Range/Units 10:55 11:36 RBC (4.70-6.10) M/uL Hgb (14.0-18.0) g/dl Hct (42.0-52.0) % BUN (6-23) mg/dl Creatinine (0.6-1.4) mg/dl Glucose (70-99(Fasting)) mg/dl POC Glucose 160 H 119 H (70-99) mg/dl Diagnostic Findings Chest X-Ray 10/25/24 22:05 Exam(s): XR CXR 1 VIEW EXAM: XR Chest, 1 View CLINICAL HISTORY: Reason for exam: neuro deficit, acute stroke suspected. TECHNIQUE: Frontal view of the chest. COMPARISON: 03/14/2024 FINDINGS: Lungs: No consolidation. Pleural space: No significant pleural effusion. No pneumothorax. Heart: No cardiomegaly or pulmonary vascular congestion. Bones/joints: No acute fracture. No dislocation. Tubes, lines and devices: Left chest wall dual lead AICD-pacemaker. IMPRESSION: No acute findings in the chest. Electronically signed by: Evie Maria M.D. 10/25/24 23:[address] 10/25/24 22:05 CR Exam(s): CT HEAD Without Contrast EXAM: CT Head Without Intravenous Contrast CLINICAL HISTORY: Reason for exam: neuro deficit, acute stroke suspected. TECHNIQUE: Axial computed tomography images of the head/brain without intravenous contrast. CTDI is 37.42 mGy and DLP is 624.41 mGy-cm. Automated exposure control was utilized for the study. A dose lowering technique was utilized adhering to the principles of ALARA. COMPARISON: No relevant prior studies available. FINDINGS: Brain: Left cerebellar encephalomalacia/resection cavity. West-white matter differentiation maintained. Generalized parenchymal volume loss and chronic small-vessel ischemic changes. No acute hemorrhage. No mass effect or midline shift. Ventricles: No hydrocephalus. Bones/joints: Left suboccipital craniectomy. No skull fracture. Soft tissues: Unremarkable. Vasculature: Intracranial atherosclerosis. Sinuses: Unremarkable as visualized. Mastoid air cells: No significant mastoid effusion. Orbits: Lens replacements. IMPRESSION: No acute intracranial process. Communications: Call Doctor Stroke Electronically signed by: Evie Maria M.D. 10/25/24 22:44 PM Head CTA 10/25/24 22:05 CR Exam(s): CTA HEAD With Contrast IV Amt: 119ml optiray 320 EXAM: CT Angiography Head With Intravenous Contrast CLINICAL HISTORY: Reason for exam: neuro deficit, acute stroke suspected. TECHNIQUE: Axial computed tomographic angiography images of the head with intravenous contrast. CTDI is 37.42 mGy and DLP is 624.41 mGy-cm. Automated exposure control was utilized for the study. A dose lowering technique was utilized adhering to the principles of ALARA. MIP reconstructed images were created and reviewed. CONTRAST: Patient received 119ml optiray 320 of IV contrast COMPARISON: Same-day head CT FINDINGS: Limitations: Motion artifact. Right internal carotid artery: No acute findings. Intracranial segment is patent with no significant stenosis. No aneurysm. Right anterior cerebral artery: Unremarkable. No occlusion or significant stenosis. No aneurysm. Right middle cerebral artery: Unremarkable. No occlusion or significant stenosis. No aneurysm. Right posterior cerebral artery: Unremarkable. No occlusion or significant stenosis. No aneurysm. Right vertebral artery: Unremarkable as visualized. Left internal carotid artery: No acute findings. Intracranial segment is patent with no significant stenosis. No aneurysm. Left anterior cerebral artery: Unremarkable. No occlusion or significant stenosis. No aneurysm. Left middle cerebral artery: Unremarkable. No occlusion or significant stenosis. No aneurysm. Left posterior cerebral artery: Unremarkable. No occlusion or significant stenosis. No aneurysm. Left vertebral artery: Unremarkable as visualized. Basilar artery: Unremarkable. No occlusion or significant stenosis. No aneurysm. IMPRESSION: Patent intracranial circulation. Communications: Call Doctor Stroke Electronically signed by: Evie Maria M.D. 10/25/24 22:43 PM Neck CTA 10/25/24 22:05 CR Exam(s): CTA NECK With Contrast IV Amt: 119ml optiray 320 EXAM: CT Angiography Neck With Intravenous Contrast CLINICAL HISTORY: Reason for exam: neuro deficit, acute stroke suspected. TECHNIQUE: Routine carotid CT angiography protocol was performed with intravenous contrast. NASCET criteria using the distal ICAs for comparison were used for evaluation of stenoses. CTDI is 26.99 mGy and DLP is 497.85 mGy-cm. Automated exposure control was utilized for the study. A dose lowering technique was utilized adhering to the principles of ALARA. MIP reconstructed images were created and reviewed. CONTRAST: Patient received 119ml optiray 320 of IV contrast COMPARISON: None. FINDINGS: Limitations: Motion. VASCULATURE: Right common carotid artery: Unremarkable. No occlusion or significant stenosis. No dissection. Right internal carotid artery: Atherosclerotic plaque producing severe stenosis in the proximal segment of the right ICA. No dissection. Right external carotid artery: Unremarkable. No occlusion. Right vertebral artery: Unremarkable. No occlusion or significant stenosis. No dissection. Left common carotid artery: Unremarkable. No occlusion or significant stenosis. No dissection. Left internal carotid artery: Unremarkable. Extracranial segment is patent with no occlusion or significant stenosis. No dissection. Left external carotid artery: Unremarkable. No occlusion. Left vertebral artery: Unremarkable. No occlusion or significant stenosis. No dissection. NECK: Bones/joints: Degenerative change in the cervical spine. No acute fracture. Soft tissues: Unremarkable. Lung apices: Clear. CAROTID STENOSIS REFERENCE USING NASCET CRITERIA: % ICA stenosis = (1 - narrowest ICA diameter/diameter of distal cervical ICA) x 100. Mild - <50% stenosis. Moderate - 50-69% stenosis. Severe - 70-94% stenosis. Near occlusion - 95-99% stenosis. Occluded - 100% stenosis. IMPRESSION: Noncalcified atherosclerotic plaque producing severe stenosis in the proximal segment of the right ICA. Communications: Call Doctor Stroke Electronically signed by: Evie Mraia M.D. 10/25/24 22:47 PM Chest CTA 10/26/24 01:40 HISTORY: Chest pain. TECHNIQUE: CT angiography of the chest was performed with IV contrast. Images are presented in axial, sagittal, and coronal reformats. Coronal and sagittal 3D MIP reconstructions are also provided. COMPARISON: Chest CT dated 03/14/2024. FINDINGS: Lungs: Mild interstitial pulmonary edema. Atelectasis or parenchymal scarring along the dependent aspect both lower lobes. No pneumothorax or effusion. Mild mucoid debris along the left aspect of the distal trachea. The central tracheobronchial tree is otherwise patent. There is mild diffuse bronchial wall thickening. Heart/Mediastinum: Top normal heart size. Coronary artery calcifications are present. Severe aortic valvular calcification. Mitral annular calcification. No suspicious mediastinal or hilar lymph nodes. Thoracic esophagus is unremarkable. Vasculature: The pulmonary arteries are well-evaluated to the level of the lobar vessels. The segmental and subsegmental vessels are limited due to respiratory motion artifact and contrast timing. No evidence of acute pulmonary embolism within the limitations. The main pulmonary artery is normal in caliber. No thoracic aortic aneurysm. Mild atherosclerotic vascular disease involving the aorta and arch vessels. Soft Tissues: No enlarged axillary lymph nodes. Pacer generator pack in the superior aspect of the ventral left chest wall. Upper Abdomen: Contrast is present in the renal collecting systems. Symmetric perinephric stranding is noted. The included upper abdomen is otherwise unremarkable. Bones: Severe/end-stage arthrosis of the glenohumeral joints.Degenerative changes of the spine.R emote healed rib fractures are noted. IMPRESSION: * No evidence of acute pulmonary embolism within the limitations of contrast timing and respiratory motion artifact. * Mild interstitial pulmonary edema. Top normal heart size. * Coronary artery calcifications are present. Moderate to severe aortic valve calcification. * Additional chronic and/or incidental findings as above. ACT 112: Positive. There are findings on this exam that require communication between the performing entity and the patient following Patient Test Result Information Act ([place] ACT 112) guidelines. Electronically signed by Stanley Elkins 10-26-2024 08:30 AM Venous Doppler Study 10/26/24 03:59 HISTORY: Lower extremity pain/edema. TECHNIQUE: Bilateral lower extremity venous Doppler evaluation for DVT. Grayscale, color Doppler, and spectral Doppler imaging was utilized. COMPARISON: None. FINDINGS: Right lower extremity: The common femoral vein and greater saphenous junction appear color Doppler patent and compressible. The deep femoral vein and femoral vein appear color Doppler patent and compressible. The popliteal vein appears color Doppler patent and compressible. The posterior tibial, peroneal, and anterior tibial veins appear color Doppler patent. Respiratory variation and augmentation is noted. Surrounding soft tissues are unremarkable. Left lower extremity: The common femoral vein and greater saphenous junction appear color Doppler patent and compressible. The deep femoral vein and femoral vein appear color Doppler patent and compressible. The popliteal vein, posterior tibial vein, peroneal vein, and anterior tibial vein appear color Doppler patent and compressible. Respiratory variation and augmentation is noted. The surrounding soft tissues are unremarkable. IMPRESSION: No evidence of lower extremity DVT. Electronically signed by Stanley Elkins 10-26-2024 13:06 PM Abdomen/Pelvis CT 10/26/24 19:48 Exam(s): CT ABDOMEN + PELVIS Without Contrast EXAM: CT Abdomen and Pelvis Without Intravenous Contrast CLINICAL HISTORY: back pain, heparin. TECHNIQUE: Axial computed tomography images of the abdomen and pelvis without intravenous contrast. CTDI is 33.41 mGy and DLP is 1763.9 mGy-cm. Automated exposure control was utilized for the study. A dose lowering technique was utilized adhering to the principles of ALARA. COMPARISON: CT abdomen and pelvis with contrast dated 03/14/2024 FINDINGS: Artifacts: Scatter artifact likely related to patient's arm position. Limitations: There is diffuse respiratory artifact, which degrades image quality throughout the examination. Lung bases: Unremarkable. No mass. No consolidation. Pleural space: Curvilinear changes noted at the lung bases. Evaluation is limited by respiratory artifact. No pleural effusion. ABDOMEN: Liver: Unremarkable. Gallbladder and bile ducts: Excreted contrast in the gallbladder. No gallbladder wall thickening or biliary dilatation. No calcified stones. Pancreas: Unremarkable. No ductal dilation. Spleen: The spleen is grossly unremarkable, accounting for limitations. Adrenals: Unremarkable. No mass. Kidneys and ureters: The kidneys demonstrate enhancement presumably from recent CTA examination of the head. No hydronephrosis. Evaluation for nephrolithiasis is limited with excreted contrast in the renal collecting systems and throughout the ureters. Stomach and bowel: No bowel obstruction. Evaluation of the bowel is limited without contrast and respiratory artifact. Mild stool burden. No appreciable diverticulitis. PELVIS: Appendix: The appendix is not clearly delineated. Bladder: The bladder is moderately distended. No bladder wall thickening or bladder stones. Reproductive: Unremarkable as visualized. ABDOMEN and PELVIS: Intraperitoneal space: Unremarkable. No free air. No significant fluid collection. Retroperitoneal space: There is hyperdense fat stranding involving the retroperitoneum bilaterally, right side slightly greater than left. No well-defined hematoma. Bones/joints: Bilateral hip arthroplasties noted. No acute osseous abnormality. Soft tissues: Unremarkable. Vasculature: Subtle ectasia with atherosclerotic calcification of the aorta. However, there appears to be preservation of the fat plane surrounding the aorta without evidence for periaortic hematoma. No abdominal aortic aneurysm. Lymph nodes: Unremarkable. No enlarged lymph nodes. IMPRESSION: There is hyperdense fat stranding involving the retroperitoneum bilaterally, right side slightly greater than left. No well-defined hematoma. The appearance suggests retroperitoneal hemorrhagic products. The source of the hemorrhage is not clearly delineated on this noncontrast examination. If the patient fails to respond to potential fluid resuscitation efforts, there should be a low threshold for repeat imaging. Electronically signed by: Nile Irwin MD 10/27/24 00:00 AM Medications Administered Current Inpatient Medications Cyanocobalamin (Cyanocobalamin (B-12) 500 Mcg Tablet) 1,000 mcg PO QAM HEATHER Stop: 11/25/24 08:59 Last Admin: 10/28/24 08:02 Dose: 1,000 mcg Dextrose (Dextrose 50% 50 Ml Syringe) 25 - 50 ml IV UD PRN; Protocol PRN Reason: Hypoglycemia Protocol Stop: 11/25/24 00:16 Duloxetine HCl (Duloxetine Hcl 60 Mg Cap) 60 mg PO QAM HEATHER Stop: 11/25/24 08:59 Last Admin: 10/28/24 08:02 Dose: 60 mg Finasteride (Finasteride 5 Mg Tab) 5 mg PO QAM HEATHER Stop: 11/25/24 08:59 Last Admin: 10/28/24 08:03 Dose: 5 mg Glucagon (Glucagon For Inj 1 Mg Vial) 1 mg SQ UD PRN; Protocol PRN Reason: Hypoglycemia Protocol Stop: 11/25/24 00:16 Glucose (Glucose 40% Gel 15 Gm Tube) 15 - 30 gm PO UD PRN; Protocol PRN Reason: Hypoglycemia Protocol Stop: 11/25/24 00:16 Glucose (Glucose 10 Tab/Tube) 4 - 8 tab PO UD PRN; Protocol PRN Reason: Hypoglycemia Protocol Stop: 11/25/24 00:16 Heparin Sodium/Dextrose (Heparin 88458 Unit/500 Ml D5w) 25,000 units in 500 mls @ 0 mls/hr IV .Q0M HEATHER; Protocol Stop: 11/25/24 04:14 Last Titration: 10/26/24 19:45 Dose: 0 units/hr, 0 mls/hr Lactated Ringer's (Lr) 1,000 mls @ 80 mls/hr IV .[id number] [facility] Stop: 10/30/24 07:44 Last Admin: 10/28/24 08:08 Dose: 80 mls/hr Insulin Aspart (Insulin Aspart Per Unit Charge) 0 units SC ACHS HEATHER Stop: 11/25/24 11:00 Last Admin: 10/28/24 12:38 Dose: Not Given Labetalol HCl (Labetalol Hcl Iv 5 Mg/Ml 20ml) 10 mg IV Q6H PRN PRN Reason: Hypertension SBP >180 Stop: 11/25/24 11:04 Levothyroxine Sodium (Levothyroxine Sodium 75 Mcg Tablet) 75 mcg PO DAILYBB [facility] Stop: 11/25/24 06:29 Last Admin: 10/28/24 06:15 Dose: 75 mcg Metoprolol Succinate (Metoprolol Succ 25mg Ext Rel Tab) 25 mg PO [facility] HEATHER Stop: 11/25/24 08:59 Last Admin: 10/28/24 08:02 Dose: 25 mg Miscellaneous (Carbohydrates For Hypoglycemia ) 15 - 30 gm PO UD PRN PRN Reason: Hypoglycemia Protocol Stop: 11/25/24 00:16 Olanzapine (Olanzapine 10 Mg/2.1 Ml Sdv) 2.5 mg IM Q4H PRN PRN Reason: Agitation Stop: 11/24/24 23:16 Prenat Multivit/Hamler/Iron/Folic Ac ( Vitamin 1 Tab) 1 tab PO QAM HEATHER Stop: 11/25/24 08:59 Last Admin: 10/28/24 08:02 Dose: 1 tab Rosuvastatin Calcium (Rosuvastatin Calcium 10 Mg Tab) 10 mg PO HS HEATHER Stop: 11/25/24 20:59 Last Admin: 10/27/24 20:03 Dose: 10 mg Tamsulosin HCl (Tamsulosin Hcl 0.4 Mg Cap) 0.4 mg PO HS HEATHER Stop: 11/25/24 20:59 Last Admin: 10/27/24 20:03 Dose: 0.4 mg Vitamin D (Cholecalciferol 25 Mcg (1000 Units) Tab) 25 mcg PO QA HEATHER Stop: 11/25/24 08:59 Last Admin: 10/28/24 08:03 Dose: 25 mcg PG Care Time/CCT Total # of Minutes Spent Total Time Spent with Patient: Total time spent is greater than 50% in coordination of care (as documented) at patient's floor/unit and/or counseling patient: [place] [id number] SUB INP/OBS CARE 2/35MIN Patient Type Established History Expanded Problem Focused Exam Expanded Problem Focused Medical Decision Making Low Complexity Diagnoses Lethargy R53.83 Delirium of mixed origin F05 Counseling regarding goals of care Z71.89 Palliative care by specialist Z51.5
--- NOTE | 2024-10-28 14:18 | Communication Note ---
Date of Service: October 28, 2024 Greater than 20 minute conversation with on phone. Discussed all of his active issues and the difficulties treating these issues. She understands the severity of his illness. She discussed with her sons and has decided to make patient DNR DNI. she would still like bloodwork, IVF, abx, and blood products if needed.
[2024-10-28] MEDS: ACETAMINOPHEN 500 MG TAB PO PRN (15:58)
--- NOTE | 2024-10-28 17:41 | XRay Report ---
EXAM: X-ray chest one-view portable CLINICAL HISTORY: New hypoxia PRIORS: CT 10/26/2024 TECHNIQUE: Frontal view chest FINDINGS: Patient rotated. Left-sided cardiac device noted. The chest is well-expanded. Diffuse interstitial prominence Noted, most pronounced centrally increased or new when compared to recent CT, allowing for differences in technique. No large confluent opacification. Heart size is normal. No pneumothorax. Trachea is patent. Osseous structures demonstrate no acute abnormality. No radiopaque foreign body. IMPRESSION: Increased interstitial prominence throughout the lungs, predominantly centrally located which may suggest volume overload in the proper clinical setting. Electronically signed by Galina Brooks 10-28-2024 5:41 PM
--- NOTE | 2024-10-28 18:06 | Cardiology Progress Note ---
Date of Service October 28, 2024 Assessment & Plan (1) Atypical chest pain: (2) Coronary artery calcification: (3) Heart block AV third degree: (4) Cardiac pacemaker: (5) Hyperlipidemia: Plan 89 year old medically complex male with PMHx significant for CHB s/p dual-chamber pacemaker (implanted 01/10/24), mild-moderate , HTN, HLD, T2DM, and former smoker presented to [facility] on 10/25/24 for evaluation of altered mental status and chest pain. Work-up upon admission remarkable for elevated high- sensitivity troponins (9.4 - 879.9-1528) and elevated D-dimer. EKG demonstrated V-pacing with rate 71 bpm and QTc 506 ms. Neck CTA (10/25/24) demonstrated non- calcified atherosclerotic plaque producing severe stenosis in the proximal segment of the right ICA. CTA Chest (10/26/24) demonstrated no acute PE, mild interstitial pulmonary edema, and moderate-severe coronary artery blanca cifications. NSTEMI HTN - urgency -> better Severe CM with LVEF of 30 to 35% (echo - 10/26/24) - likely ischemic AMS DM ABDI Anemia Aortic stenosis ? Dementia CHB S/P PPM ASA 81 mg po daily adjust anti-HTN meds keeping systolic BP between 100-140 mmHg metoprolol statin correct and f/u electrolytes f/u renal function DVT prophylaxis conservative medical management at this time given advanced age and poor cognitive function ?NIKKI - defer to primary stable from cardiac standpoint for discharge please recall if needed will sign off Admission and Anticipated Discharge Date Admission Date: October 27, 2024 Subjective Patient on exam is lying in bed in NAD; non-communicative; sleeping; arousable Review of Systems Review of Systems: See HPI for pertinent positives. All others negative other than those noted in the HPI. Physical Exam Physical Exam: General: No acute distress. A+Ox3. HEENT: normal conjunctiva anicteric sclera NECK: Trachea midline. No thyromegaly. No carotid bruits. No JVD. Carotid upstrokes are brisk. Heart: S1 and S2. Grade II/ systolic murmur auscultated along left sternal border. No rubs or gallops. PMI non displaced. Lungs: No acute respiratory distress. no rales. No wheezes. Abdomen: Normal bowel sounds. Soft. Nontender. No abdominal bruits. Extremities: pp+. No edema. No clubbing or cyanosis. Skin: Warm and dry. NEURO: non-communicative Results & Data Vital Signs (Past 12 Hours) Vital Signs Temp Pulse Pulse Resp BP Pulse Ox O2 Del Method 10/28/24 15:40 101 H 10/28/24 15:33 36.5 C 107 H 18 107/82 92 Nasal Cannula 10/28/24 10:56 36.9 C 91 H 18 108/74 92 Room Air 10/28/24 08:50 104 H 10/28/24 07:36 36.9 C 97 H 18 117/73 92 Room Air 10/28/24 07:00 Room Air O2 Flow Rate 10/28/24 15:40 10/28/24 15:33 4 10/28/24 10:56 10/28/24 08:50 10/28/24 07:36 10/28/24 07:00 Laboratory Results Laboratory Results - last 48 hr 10/26/24 10/26/24 10/26/24 18:18 20:03 21:11 WBC RBC Hgb Hct MCV MCH MCHC RDW Std Deviation RDW Coeff of Darrick Plt Count MPV Heparin Anti-Xa, Unfract 0.52 Sodium Potassium Chloride Carbon Dioxide Anion Gap BUN Creatinine Est Cr Clr Drug Dosing eGFR BUN/Creatinine Ratio Glucose POC Glucose 119 H Calcium Troponin I High Sens 2997.3 H* D Blood Type Antibody Screen 10/27/24 10/27/24 10/27/24 00:28 05:47 05:50 WBC 11.47 H RBC 3.96 L Hgb 12.5 L 12.4 L Hct 36.0 L 35.2 L MCV 88.9 MCH 31.3 MCHC 35.2 RDW Std Deviation 44.9 RDW Coeff of Darrick 13.9 Plt Count 162 MPV 11.2 Heparin Anti-Xa, Unfract < 0.10 L Sodium 137 Potassium 4.5 Chloride 105 Carbon Dioxide 21 Anion Gap 11 BUN 31 H Creatinine 2.55 H D Est Cr Clr Drug Dosing 22.4 eGFR 23.54 BUN/Creatinine Ratio 12.2 Glucose 115 H POC Glucose Calcium 9.2 Troponin I High Sens Blood Type O Positive Antibody Screen NEGATIVE 10/27/24 10/27/24 10/27/24 07:21 07:45 11:16 WBC RBC Hgb 12.6 L Hct MCV MCH MCHC RDW Std Deviation RDW Coeff of Darrick Plt Count MPV Heparin Anti-Xa, Unfract Sodium Potassium Chloride Carbon Dioxide Anion Gap BUN Creatinine Est Cr Clr Drug Dosing eGFR BUN/Creatinine Ratio Glucose POC Glucose 123 H 120 H Calcium Troponin I High Sens Blood Type Antibody Screen 10/27/24 10/27/24 10/27/24 15:17 16:07 20:07 WBC RBC Hgb 12.1 L Hct MCV MCH MCHC RDW Std Deviation RDW Coeff of Darrick Plt Count MPV Heparin Anti-Xa, Unfract Sodium Potassium Chloride Carbon Dioxide Anion Gap BUN Creatinine Est Cr Clr Drug Dosing eGFR BUN/Creatinine Ratio Glucose POC Glucose 113 H 117 H Calcium Troponin I High Sens Blood Type Antibody Screen 10/27/24 10/28/24 10/28/24 22:57 07:38 07:39 WBC 10.58 RBC 3.45 L Hgb 11.4 L 10.4 L Hct 31.2 L MCV 90.4 MCH 30.1 MCHC 33.3 RDW Std Deviation 45.2 RDW Coeff of Darrick 14.0 Plt Count 140 MPV 11.0 Heparin Anti-Xa, Unfract Sodium 137 Potassium 4.3 Chloride 106 Carbon Dioxide 22 Anion Gap 9 BUN 41 H Creatinine 2.68 H Est Cr Clr Drug Dosing 21.3 eGFR 22.18 BUN/Creatinine Ratio 15.3 Glucose 106 H POC Glucose 122 H Calcium 8.9 Troponin I High Sens Blood Type Antibody Screen 10/28/24 10/28/24 10/28/24 10:55 11:36 15:20 WBC RBC Hgb 11.0 L Hct MCV MCH MCHC RDW Std Deviation RDW Coeff of Darrick Plt Count MPV Heparin Anti-Xa, Unfract Sodium Potassium Chloride Carbon Dioxide Anion Gap BUN Creatinine Est Cr Clr Drug Dosing eGFR BUN/Creatinine Ratio Glucose POC Glucose 160 H 119 H Calcium Troponin I High Sens Blood Type Antibody Screen 10/28/24 16:39 WBC RBC Hgb Hct MCV MCH MCHC RDW Std Deviation RDW Coeff of Darrick Plt Count MPV Heparin Anti-Xa, Unfract Sodium Potassium Chloride Carbon Dioxide Anion Gap BUN Creatinine Est Cr Clr Drug Dosing eGFR BUN/Creatinine Ratio Glucose POC Glucose 116 H Calcium Troponin I High Sens Blood Type Antibody Screen Diagnostic Findings Laboratory Results WBC 10.58 K/ul (4.8-10.8) 10/28/24 07:39 RBC 3.45 M/uL (4.70-6.10) L 10/28/24 07:39 Hgb 11.0 g/dl (14.0-18.0) L 10/28/24 15:20 POC Hgb 11.2 g/dl (14.0-18.0) L 10/25/24 22:01 Hct 31.2 % (42.0-52.0) L 10/28/24 07:39 POC Hct 33 % (42-52) L 10/25/24 22:01 MCV 90.4 fL (80.0-100.0) 10/28/24 07:39 MCH 30.1 pg (25.0-34.0) 10/28/24 07:39 MCHC 33.3 g/dL (32.0-36.0) 10/28/24 07:39 RDW Std Deviation 45.2 fL (36.4-46.3) 10/28/24 07:39 RDW Coeff of Darrick 14.0 % (11.5-14.5) 10/28/24 07:39 Plt Count 140 K/uL (130-400) 10/28/24 07:39 MPV 11.0 fL (9.4-12.4) 10/28/24 07:39 Immature Gran % (Auto) 0.4 % 10/26/24 05:27 Neut % (Auto) 84.7 % 10/26/24 05:27 Lymph % (Auto) 5.3 % 10/26/24 05:27 Burt % (Auto) 9.2 % 10/26/24 05:27 Eos % (Auto) 0.1 % 10/26/24 05:27 Baso % (Auto) 0.3 % 10/26/24 05:27 Neut # (Auto) 8.47 K/uL (1.40-6.50) H 10/26/24 05:27 Lymph # (Auto) 0.53 K/uL (1.20-3.40) L 10/26/24 05:27 Burt # (Auto) 0.92 K/uL (0.11-0.59) H 10/26/24 05:27 Eos # (Auto) 0.01 K/uL (0.00-0.50) 10/26/24 05:27 Baso # (Auto) 0.03 K/uL (0.00-0.20) 10/26/24 05:27 Immature Gran # (Auto) 0.04 K/uL (0.01-0.20) 10/26/24 05:27 PT 10.6 Seconds (9.0-12.0) 10/25/24 21:50 INR 1.0 (0.9-1.1) 10/25/24 21:50 APTT 27 Seconds (21-31) 10/25/24 21:50 PTT Ratio 1.0 10/25/24 21:50 D-Dimer 2200 ug/L FEU (0-500) H* 10/25/24 21:50 Heparin Anti-Xa, Unfract < 0.10 IU/ml (0.3-0.7) L 10/27/24 05:50 POC Sodium 139 mmol/L (135-144) 10/25/24 22:01 Sodium 137 mmol/L (136-145) 10/28/24 07:39 POC Potassium 3.9 mmol/L (3.3-5.0) 10/25/24 22:01 Potassium 4.3 mmol/L (3.5-5.1) 10/28/24 07:39 POC Chloride 104 mmol/L (101-112) 10/25/24 22:01 Chloride 106 mmol/L (98-107) 10/28/24 07:39 Carbon Dioxide 22 mmol/L (21-32) 10/28/24 07:39 POC Total CO2 21 mmol/L (24-31) L 10/25/24 22:01 Anion Gap 9 (3-11) 10/28/24 07:39 POC Anion Gap 18.0 mmol/L (16-25) 10/25/24 22:01 POC BUN 17 mg/dl (7-18) 10/25/24 22:01 BUN 41 mg/dl (6-23) H 10/28/24 07:39 Creatinine 2.68 mg/dl (0.6-1.4) H 10/28/24 07:39 POC Creatinine 1.1 mg/dl (0.6-1.3) 10/25/24 22:01 Est Cr Clr Drug Dosing 21.3 ml/min 10/28/24 07:39 eGFR 22.18 10/28/24 07:39 BUN/Creatinine Ratio 15.3 (10-20) 10/28/24 07:39 Glucose 106 mg/dl (70-99(Fasting)) H 10/28/24 07:39 POC Glucose 116 mg/dl (70-99) H 10/28/24 16:39 POC Glucose (other) 84 mg/dl (70-99) 10/25/24 22:01 Calcium 8.9 mg/dl (8.6-10.3) 10/28/24 07:39 POC Ioniz Calcium [place]akel 1.20 mmol/l (1.12-1.32) 10/25/24 22:01 Magnesium 2.1 mg/dl (1.7-2.4) 10/26/24 05:27 Total Bilirubin 0.6 mg/dl (0.2-1.0) 10/25/24 21:50 AST 19 U/L (13-39) 10/25/24 21:50 ALT 14 U/L (7-52) 10/25/24 21:50 Alkaline Phosphatase 88 U/L (34-104) 10/25/24 21:50 Ammonia 31.0 umol/L (18-72) 10/26/24 00:54 Troponin I High Sens 2997.3 pg/ml (0-20) H* D 10/26/24 21:11 Total Protein 7.7 gm/dl (6.0-8.3) 10/25/24 21:50 Albumin 4.0 gm/dl (3.4-5.0) 10/25/24 21:50 Globulin 3.7 gm/dl (2.5-4.0) 10/25/24 21:50 Albumin/Globulin Ratio 1.1 (0.9-2) 10/25/24 21:50 Urine Color Yellow 10/25/24 22:07 Urine Appearance Clear (Clear) 10/25/24 22:07 Urine pH 8.0 (4.5-7.5) H 10/25/24 22:07 Ur Specific [place] 1.011 (1.000-1.030) 10/25/24 22:07 Urine Protein Negative (Negative) 10/25/24 22:07 Urine Glucose (UA) Negative (Negative) 10/25/24 22:07 Urine Ketones Negative (Negative) 10/25/24 22:07 Urine Blood Negative (Negative) 10/25/24 22:07 Urine Nitrite Negative (Negative) 10/25/24 22:07 Urine Bilirubin Negative (Negative) 10/25/24 22:07 Urine Urobilinogen Negative (Negative) 10/25/24 22:07 Ur Leukocyte Esterase Negative (Negative) 10/25/24 22:07 Urine Comment 10/25/24 22:07 Blood Type O Positive 10/27/24 00:28 Antibody Screen NEGATIVE 10/27/24 00:[address] 10/25/24 22:05 CR Exam(s): CT HEAD Without Contrast EXAM: CT Head Without Intravenous Contrast CLINICAL HISTORY: Reason for exam: neuro deficit, acute stroke suspected. TECHNIQUE: Axial computed tomography images of the head/brain without intravenous contrast. CTDI is 37.42 mGy and DLP is 624.41 mGy-cm. Automated exposure control was utilized for the study. A dose lowering technique was utilized adhering to the principles of ALARA. COMPARISON: No relevant prior studies available. FINDINGS: Brain: Left cerebellar encephalomalacia/resection cavity. West-white matter differentiation maintained. Generalized parenchymal volume loss and chronic small-vessel ischemic changes. No acute hemorrhage. No mass effect or midline shift. Ventricles: No hydrocephalus. Bones/joints: Left suboccipital craniectomy. No skull fracture. Soft tissues: Unremarkable. Vasculature: Intracranial atherosclerosis. Sinuses: Unremarkable as visualized. Mastoid air cells: No significant mastoid effusion. Orbits: Lens replacements. IMPRESSION: No acute intracranial process. Communications: Call Doctor Stroke Electronically signed by: Evie Maria M.D. 10/25/24 22:44 PM Head CTA 10/25/24 22:05 CR Exam(s): CTA HEAD With Contrast IV Amt: 119ml optiray 320 EXAM: CT Angiography Head With Intravenous Contrast CLINICAL HISTORY: Reason for exam: neuro deficit, acute stroke suspected. TECHNIQUE: Axial computed tomographic angiography images of the head with intravenous contrast. CTDI is 37.42 mGy and DLP is 624.41 mGy-cm. Automated exposure control was utilized for the study. A dose lowering technique was utilized adhering to the principles of ALARA. MIP reconstructed images were created and reviewed. CONTRAST: Patient received 119ml optiray 320 of IV contrast COMPARISON: Same-day head CT FINDINGS: Limitations: Motion artifact. Right internal carotid artery: No acute findings. Intracranial segment is patent with no significant stenosis. No aneurysm. Right anterior cerebral artery: Unremarkable. No occlusion or significant stenosis. No aneurysm. Right middle cerebral artery: Unremarkable. No occlusion or significant stenosis. No aneurysm. Right posterior cerebral artery: Unremarkable. No occlusion or significant stenosis. No aneurysm. Right vertebral artery: Unremarkable as visualized. Left internal carotid artery: No acute findings. Intracranial segment is patent with no significant stenosis. No aneurysm. Left anterior cerebral artery: Unremarkable. No occlusion or significant stenosis. No aneurysm. Left middle cerebral artery: Unremarkable. No occlusion or significant stenosis. No aneurysm. Left posterior cerebral artery: Unremarkable. No occlusion or significant stenosis. No aneurysm. Left vertebral artery: Unremarkable as visualized. Basilar artery: Unremarkable. No occlusion or significant stenosis. No aneurysm. IMPRESSION: Patent intracranial circulation. Communications: Call Doctor Stroke Electronically signed by: Evie Maria M.D. 10/25/24 22:43 PM Neck CTA 10/25/24 22:05 CR Exam(s): CTA NECK With Contrast IV Amt: 119ml optiray 320 EXAM: CT Angiography Neck With Intravenous Contrast CLINICAL HISTORY: Reason for exam: neuro deficit, acute stroke suspected. TECHNIQUE: Routine carotid CT angiography protocol was performed with intravenous contrast. NASCET criteria using the distal ICAs for comparison were used for evaluation of stenoses. CTDI is 26.99 mGy and DLP is 497.85 mGy-cm. Automated exposure control was utilized for the study. A dose lowering technique was utilized adhering to the principles of ALARA. MIP reconstructed images were created and reviewed. CONTRAST: Patient received 119ml optiray 320 of IV contrast COMPARISON: None. FINDINGS: Limitations: Motion. VASCULATURE: Right common carotid artery: Unremarkable. No occlusion or significant stenosis. No dissection. Right internal carotid artery: Atherosclerotic plaque producing severe stenosis in the proximal segment of the right ICA. No dissection. Right external carotid artery: Unremarkable. No occlusion. Right vertebral artery: Unremarkable. No occlusion or significant stenosis. No dissection. Left common carotid artery: Unremarkable. No occlusion or significant stenosis. No dissection. Left internal carotid artery: Unremarkable. Extracranial segment is patent with no occlusion or significant stenosis. No dissection. Left external carotid artery: Unremarkable. No occlusion. Left vertebral artery: Unremarkable. No occlusion or significant stenosis. No dissection. NECK: Bones/joints: Degenerative change in the cervical spine. No acute fracture. Soft tissues: Unremarkable. Lung apices: Clear. CAROTID STENOSIS REFERENCE USING NASCET CRITERIA: % ICA stenosis = (1 - narrowest ICA diameter/diameter of distal cervical ICA) x 100. Mild - <50% stenosis. Moderate - 50-69% stenosis. Severe - 70-94% stenosis. Near occlusion - 95-99% stenosis. Occluded - 100% stenosis. IMPRESSION: Noncalcified atherosclerotic plaque producing severe stenosis in the proximal segment of the right ICA. Communications: Call Doctor Stroke Electronically signed by: Evie Maria M.D. 10/25/24 22:47 PM Chest CTA 10/26/24 01:40 HISTORY: Chest pain. TECHNIQUE: CT angiography of the chest was performed with IV contrast. Images are presented in axial, sagittal, and coronal reformats. Coronal and sagittal 3D MIP reconstructions are also provided. COMPARISON: Chest CT dated 03/14/2024. FINDINGS: Lungs: Mild interstitial pulmonary edema. Atelectasis or parenchymal scarring along the dependent aspect both lower lobes. No pneumothorax or effusion. Mild mucoid debris along the left aspect of the distal trachea. The central tracheobronchial tree is otherwise patent. There is mild diffuse bronchial wall thickening. Heart/Mediastinum: Top normal heart size. Coronary artery calcifications are present. Severe aortic valvular calcification. Mitral annular calcification. No suspicious mediastinal or hilar lymph nodes. Thoracic esophagus is unremarkable. Vasculature: The pulmonary arteries are well-evaluated to the level of the lobar vessels. The segmental and subsegmental vessels are limited due to respiratory motion artifact and contrast timing. No evidence of acute pulmonary embolism within the limitations. The main pulmonary artery is normal in caliber. No thoracic aortic aneurysm. Mild atherosclerotic vascular disease involving the aorta and arch vessels. Soft Tissues: No enlarged axillary lymph nodes. Pacer generator pack in the superior aspect of the ventral left chest wall. Upper Abdomen: Contrast is present in the renal collecting systems. Symmetric perinephric stranding is noted. The included upper abdomen is otherwise unremarkable. Bones: Severe/end-stage arthrosis of the glenohumeral joints.Degenerative changes of the spine.R emote healed rib fractures are noted. IMPRESSION: * No evidence of acute pulmonary embolism within the limitations of contrast timing and respiratory motion artifact. * Mild interstitial pulmonary edema. Top normal heart size. * Coronary artery calcifications are present. Moderate to severe aortic valve calcification. * Additional chronic and/or incidental findings as above. ACT 112: Positive. There are findings on this exam that require communication between the performing entity and the patient following Patient Test Result Information Act ([place] ACT 112) guidelines. Electronically signed by Stanley Elkins 10-26-2024 08:30 AM Venous Doppler Study 10/26/24 03:59 HISTORY: Lower extremity pain/edema. TECHNIQUE: Bilateral lower extremity venous Doppler evaluation for DVT. Grayscale, color Doppler, and spectral Doppler imaging was utilized. COMPARISON: None. FINDINGS: Right lower extremity: The common femoral vein and greater saphenous junction appear color Doppler patent and compressible. The deep femoral vein and femoral vein appear color Doppler patent and compressible. The popliteal vein appears color Doppler patent and compressible. The posterior tibial, peroneal, and anterior tibial veins appear color Doppler patent. Respiratory variation and augmentation is noted. Surrounding soft tissues are unremarkable. Left lower extremity: The common femoral vein and greater saphenous junction appear color Doppler patent and compressible. The deep femoral vein and femoral vein appear color Doppler patent and compressible. The popliteal vein, posterior tibial vein, peroneal vein, and anterior tibial vein appear color Doppler patent and compressible. Respiratory variation and augmentation is noted. The surrounding soft tissues are unremarkable. IMPRESSION: No evidence of lower extremity DVT. Electronically signed by Stanley Elkins 10-26-2024 13:06 PM Abdomen/Pelvis CT 10/26/24 19:48 Exam(s): CT ABDOMEN + PELVIS Without Contrast EXAM: CT Abdomen and Pelvis Without Intravenous Contrast CLINICAL HISTORY: back pain, heparin. TECHNIQUE: Axial computed tomography images of the abdomen and pelvis without intravenous contrast. CTDI is 33.41 mGy and DLP is 1763.9 mGy-cm. Automated exposure control was utilized for the study. A dose lowering technique was utilized adhering to the principles of ALARA. COMPARISON: CT abdomen and pelvis with contrast dated 03/14/2024 FINDINGS: Artifacts: Scatter artifact likely related to patient's arm position. Limitations: There is diffuse respiratory artifact, which degrades image quality throughout the examination. Lung bases: Unremarkable. No mass. No consolidation. Pleural space: Curvilinear changes noted at the lung bases. Evaluation is limited by respiratory artifact. No pleural effusion. ABDOMEN: Liver: Unremarkable. Gallbladder and bile ducts: Excreted contrast in the gallbladder. No gallbladder wall thickening or biliary dilatation. No calcified stones. Pancreas: Unremarkable. No ductal dilation. Spleen: The spleen is grossly unremarkable, accounting for limitations. Adrenals: Unremarkable. No mass. Kidneys and ureters: The kidneys demonstrate enhancement presumably from recent CTA examination of the head. No hydronephrosis. Evaluation for nephrolithiasis is limited with excreted contrast in the renal collecting systems and throughout the ureters. Stomach and bowel: No bowel obstruction. Evaluation of the bowel is limited without contrast and respiratory artifact. Mild stool burden. No appreciable diverticulitis. PELVIS: Appendix: The appendix is not clearly delineated. Bladder: The bladder is moderately distended. No bladder wall thickening or bladder stones. Reproductive: Unremarkable as visualized. ABDOMEN and PELVIS: Intraperitoneal space: Unremarkable. No free air. No significant fluid collection. Retroperitoneal space: There is hyperdense fat stranding involving the retroperitoneum bilaterally, right side slightly greater than left. No well-defined hematoma. Bones/joints: Bilateral hip arthroplasties noted. No acute osseous abnormality. Soft tissues: Unremarkable. Vasculature: Subtle ectasia with atherosclerotic calcification of the aorta. However, there appears to be preservation of the fat plane surrounding the aorta without evidence for periaortic hematoma. No abdominal aortic aneurysm. Lymph nodes: Unremarkable. No enlarged lymph nodes. IMPRESSION: There is hyperdense fat stranding involving the retroperitoneum bilaterally, right side slightly greater than left. No well-defined hematoma. The appearance suggests retroperitoneal hemorrhagic products. The source of the hemorrhage is not clearly delineated on this noncontrast examination. If the patient fails to respond to potential fluid resuscitation efforts, there should be a low threshold for repeat imaging. Electronically signed by: Nile Irwin MD 10/27/24 00:00 AM Chest X-Ray 10/28/24 16:06 EXAM: X-ray chest one-view portable CLINICAL HISTORY: New hypoxia PRIORS: CT 10/26/2024 TECHNIQUE: Frontal view chest FINDINGS: Patient rotated. Left-sided cardiac device noted. The chest is well-expanded. Diffuse interstitial prominence Noted, most pronounced centrally increased or new when compared to recent CT, allowing for differences in technique. No large confluent opacification. Heart size is normal. No pneumothorax. Trachea is patent. Osseous structures demonstrate no acute abnormality. No radiopaque foreign body. IMPRESSION: Increased interstitial prominence throughout the lungs, predominantly centrally located which may suggest volume overload in the proper clinical setting. Electronically signed by Galina Brooks 10-28-2024 5:41 PM Medications Administered Home Medications Medication Instructions Recorded Confirmed Last Taken cholecalciferol (vitamin D3) 25 1,000 unit PO QAM 08/21/18 10/25/24 01/07/24 mcg (1,000 unit) tablet (Vitamin D3) levothyroxine 75 mcg tablet 75 mcg PO DAILYBB 08/21/18 10/25/24 01/07/24 nitroglycerin 0.4 mg sublingual 0.4 mg sublingual Q5W PRN Chest 08/21/18 10/25/24 08/22/18 12:00 tablet Pain omeprazole 20 mg tablet,delayed 20 mg PO QAM 08/21/18 10/25/24 01/07/24 release tamsulosin 0.4 mg capsule 0.4 mg PO HS 08/21/18 10/25/24 01/07/24 finasteride 5 mg tablet 5 mg PO QAM 10/02/19 10/25/24 01/07/24 acetaminophen 500 mg tablet 500 mg PO Q8 PRN Fever >38C Or 02/23/22 10/25/24 01/07/24 Pain, mild duloxetine 60 mg capsule,delayed 60 mg PO QAM 02/23/22 10/25/24 01/07/24 release sprinkle rosuvastatin 10 mg tablet 10 mg PO HS 02/23/22 10/25/24 01/08/24 meclizine 25 mg tablet 25 mg PO TID PRN DIZZY 07/19/23 10/25/24 01/06/24 cyanocobalamin (vitamin B-12) 1,000 mcg PO QAM 10/25/24 10/25/24 Unknown 1,000 mcg tablet (Vitamin B-12) furosemide 20 mg tablet 20 mg PO 3XWK 10/25/24 10/25/24 Unknown metoprolol succinate 25 mg 25 mg PO AMHS 10/25/24 10/25/24 Unknown tablet,extended release 24 hr vitamin-ferrous sulfate 1 tab PO QAM 10/25/24 10/25/24 Unknown 27 mg iron-folic acid 0.8 mg tablet Active Medications Generic Name Dose Route Start Last Admin Trade Name Freq PRN Reason Stop Dose Admin Acetaminophen 500 mg 10/28/24 15:46 10/28/24 15:58 Acetaminophen 500 Mg Tab PO 11/27/24 15:45 500 mg Q4H PRN Administration Mild Pain (Scale 1, 2, 3) Cyanocobalamin 1,000 mcg 10/26/24 09:00 10/28/24 08:02 Cyanocobalamin (B-12) 500 Mcg Tablet PO 11/25/24 08:59 1,000 mcg QAM HEATHER Administration Duloxetine HCl 60 mg 10/26/24 09:00 10/28/24 08:02 Duloxetine Hcl 60 Mg Cap PO 11/25/24 08:59 60 mg QAM HEATHER Administration Finasteride 5 mg 10/26/24 09:00 10/28/24 08:03 Finasteride 5 Mg Tab PO 11/25/24 08:59 5 mg QAM HEATHER Administration Heparin Sodium/Dextrose 25,000 units in 500 mls @ 0 mls/hr 10/26/24 04:15 10/26/24 19:45 Heparin 46850 Unit/500 Ml D5w IV 11/25/24 04:14 0 units/hr .Q0M HEATHER 0 mls/hr Titration Protocol 0 UNITS/HR Lactated Ringer's 1,000 mls @ 80 mls/hr 10/27/24 07:45 10/28/24 16:00 Lr IV 10/30/24 07:44 0 mls/hr .[id number] HEATHER Infusion Insulin Aspart 0 units 10/26/24 21:00 10/28/24 17:33 Insulin Aspart Per Unit Charge SC 11/25/24 11:00 2 units ACHS HEATHER Administration Levothyroxine Sodium 75 mcg 10/26/24 06:30 10/28/24 06:15 Levothyroxine Sodium 75 Mcg Tablet PO 11/25/24 06:29 75 mcg DAILYBB HEATHER Administration Metoprolol Succinate 25 mg 10/26/24 09:00 10/28/24 08:02 Metoprolol Succ 25mg Ext Rel Tab PO 11/25/24 08:59 25 mg AMHS HEATHER Administration Prenat Multivit/[place]/Iron/Folic Ac 1 tab 10/26/24 09:00 10/28/24 08:02 Vitamin 1 Tab PO 11/25/24 08:59 1 tab QAM HEATHER Administration Rosuvastatin Calcium 10 mg 10/26/24 21:00 10/27/24 20:03 Rosuvastatin Calcium 10 Mg Tab PO 11/25/24 20:59 10 mg HS HEATHER Administration Tamsulosin HCl 0.4 mg 10/26/24 21:00 10/27/24 20:03 Tamsulosin Hcl 0.4 Mg Cap PO 11/25/24 20:59 0.4 mg HS HEATHER Administration Vitamin D 25 mcg 10/26/24 09:00 10/28/24 08:03 Cholecalciferol 25 Mcg (1000 Units) Tab PO 11/25/24 08:59 25 mcg QAM HEATHER Administration PG Care Time/CCT Total # of Minutes Spent Total Time Spent with Patient: Total time spent is greater than 50% in coordination of care (as documented) at patient's floor/unit and/or counseling patient: Coding Level of Care Code 50728 SUB INP/OBS CARE 3/50MIN Diagnoses Atypical chest pain R07.89 Coronary artery calcification I25.10 Heart block AV third degree I44.2 Cardiac pacemaker Z95.0 Hyperlipidemia E78.5
--- NOTE | 2024-10-28 18:37 | Communication Note ---
Date of Service: October 28, 2024 Notified by RN of new O2 requirements. Requiring 4-5L NC which is new. Re- evaluated patient. he has non specific complaints of body aches, hand/wrist p ain, chest pain radiating down to his legs. Repeat EKG without ST segment changes. CXR done, read pending but per author's read, concerning for pulm edema. He has new DIDIER suspect ATN, possible contrast induced nephropathy. would be hesitant to give IV lasix due to this. his IVF have been held. Continue supplemental O2. should it worsen, can consider temporary bipap.
[2024-10-29 06:17] LABS: Hematocrit (blood only) 30.9 % (42.0-52.0); Hemoglobin 10.3 g/dl (14.0-18.0); Mean Corpuscular Hemoglobin 30.6 pg (25.0-34.0); Mean Corpuscular Volume 91.7 fL (80.0-100.0); Platelet Count 136 K/uL (130-400); RDW Standard Deviation 46.1 fL (36.4-46.3); Red Blood Count 3.37 M/uL (4.70-6.10); White Blood Count 10.46 K/ul (4.8-10.8)
[2024-10-29 06:32] LABS: Anion Gap 9.0 (3-11); Blood Urea Nitrogen 45.0 mg/dl (6-23); Calcium 8.8 mg/dl (8.6-10.3); Carbon Dioxide 24.0 mmol/L (21-32); Chloride 103.0 mmol/L (98-107); Creatinine Clr Calc Pharmacy 21.4 ml/min; Glucose 102.0 mg/dl (70-99(Fasting)); Potassium 3.8 mmol/L (3.5-5.1); Sodium 136.0 mmol/L (136-145)
--- NOTE | 2024-10-29 08:04 | Nephrology Consultation ---
Date of Consultation October 29, 2024 Assessment & Plan (1) DIDIER (acute kidney injury): Stage 2 DIDIER From contrast induced nephropathy in a patient with due heart failure, already on low-dose outpatient Lasix thrice weekly; with presenting creatinine October 25 1.1 (baseline 1.0-1.1), rapid uptake in creatinine to 1.59 hours after initial labs. But this was already after significant IV contrast load. Creatinine peaked on October 28 at 2.7, down to 2.6 today. no obstruction on renal imaging. chemistries acceptable but with mild volume overload. Not likely oliguric though output tracking incomplete. -daily basic metabolic panel -please order a urinalysis with microscopy and straight cath if necessary to obtain -no indication at this time for dialysis discussion; recent goals of care discussions noted -no further IV contrast unless life and limb saving - please continue to avoid nephrotoxins - no further diuretics today unless abrupt decompensation; re-evaluate every day for opportunity to start goal-directed medical therapy for heart failure for now would not initiate SGLT2 I or diuretics appreciate c/s; will follow with you History of Present Illness Reason for Consultation: DIDIER Requesting Physician: Dr Hernandez Attending Physician: Toney Hernandez MD History of Present Illness 89 y/o M whom I'm asked to see for acute kidney injury was admitted 10/25 for evaluation of atypical chest pain and altered mental status and found to have NSTEMI, HTN urgency. PMH includes DM, HTN, complete heart block s/p dual-chamber pacemaker (implanted 01/2024), mild-moderate , HLD, Mild baseline cognitive impairment, reformed smoker. His baseline creatinine is 1.0-1.1 On multiple outpatient assays this year in [facility]. On presentation, he had a significant IV contrast load: Head/Neck CTA (10/25/24) demonstrated non-calcified atherosclerotic plaque w/ severe GENESIS prox segment stenosis; CTA Chest (10/26/24) showed no acute PE, mild interstitial pulmonary edema. his presenting creatinine on October 25 was 1.1. 9 hours later it was up to 1.5. Then 2.6 the following day, peaking at 2.7 October 28. Today 2.6. Urinalysis from admission bland apart from pH of 8.0. intake and output incomplete as patient is incontinent. he is 6.2 L positive on the admission to date though again output has not been tracked for several days. He had been on lactated ringer for several days until this morning. Had 60 mg IV lasix x 1 today. He was started initially on a heparin drip for type 1 NSTEMI with transthoracic echocardiogram showing ejection fraction 30%. the heparin drip was stopped when the patient developed a retroperitoneal bleed. He has remained confused and unable to take oral medications. Yesterday pt was noted to have new 02 needs up to 5L w/ plm edema on CXR and new diffuse body aches, new DIDIER concerning for contrast induced nephropathy. Palliative has been involved in To discuss goals of care. Yesterday pt was made DNR/DNI; IVF/abtx/pRBC ok. Allergies Allergy/AdvReac Type Severity Reaction Status Date / Time clindamycin Allergy Unknown unknown--per Verified 01/08/24 20:31 [facility] amoxicillin AdvReac Severe JAUNDICE Verified 01/08/24 20:31 clavulanic acid AdvReac Severe JAUNDICE Verified 01/08/24 20:31 dicyclomine [From Bentyl] AdvReac Intermediate dizziness, Verified 01/08/24 20:31 light headedness isosorbide AdvReac Intermediate PAIN IN Verified 01/08/24 20:31 LIMBS DIARRHEA oxycodone AdvReac Intermediate Confusion Verified 01/08/24 20:31 pregabalin [From Lyrica] AdvReac Intermediate Confusion Verified 01/08/24 20:31 Home Medications Medication Instructions Recorded Confirmed Type cholecalciferol (vitamin D3) 25 1,000 unit PO QAM 08/21/18 10/25/24 History mcg (1,000 unit) tablet (Vitamin D3) levothyroxine 75 mcg tablet 75 mcg PO DAILYBB 08/21/18 10/25/24 History nitroglycerin 0.4 mg sublingual 0.4 mg sublingual Q5W PRN Chest 08/21/18 10/25/24 History tablet Pain omeprazole 20 mg tablet,delayed 20 mg PO QAM 08/21/18 10/25/24 History release tamsulosin 0.4 mg capsule 0.4 mg PO HS 08/21/18 10/25/24 History finasteride 5 mg tablet 5 mg PO QAM 10/02/19 10/25/24 History acetaminophen 500 mg tablet 500 mg PO Q8 PRN Fever >38C Or 02/23/22 10/25/24 History Pain, mild duloxetine 60 mg capsule,delayed 60 mg PO QAM 02/23/22 10/25/24 History release sprinkle rosuvastatin 10 mg tablet 10 mg PO HS 02/23/22 10/25/24 History meclizine 25 mg tablet 25 mg PO TID PRN DIZZY 07/19/23 10/25/24 History cyanocobalamin (vitamin B-12) 1,000 mcg PO QAM 10/25/24 10/25/24 History 1,000 mcg tablet (Vitamin B-12) furosemide 20 mg tablet 20 mg PO 3XWK 10/25/24 10/25/24 History metoprolol succinate 25 mg 25 mg PO AMHS 10/25/24 10/25/24 History tablet,extended release 24 hr vitamin-ferrous sulfate 1 tab PO QAM 10/25/24 10/25/24 History 27 mg iron-folic acid 0.8 mg tablet Patient History Medical History Recurrent falls Dysphagia BPH (benign prostatic hyperplasia) History of shingles over 10 yrs ago History of prostate cancer RADIATION ONLY 2010 Dysphagia Anxiety and depression Spinal stenosis Osteoarthritis Degenerative disc disease Chronic back pain Chronic kidney disease, stage [address] [facility] GERD (gastroesophageal reflux disease) History of esophageal dilatation Hypothyroidism Radiation proctitis Hearing deficit Stroke 2011--no deficits, no neurologist Hyperlipidemia Cardiac murmur FOLLOWS WITH DR. HITCHCOCK Sleep apnea cpap Surgical History History of craniotomy X 2 (AT [facility])---d/t hemorrhagic stroke and for a pseudomeningocele repair History of anesthesia reaction woke up paranoid and last for 3 days after both brain surgeries History of total left hip replacement History of total right hip replacement History of prostate biopsy History of colonoscopy History of esophagogastroduodenoscopy (EGD) History of appendectomy History of phacoemulsification of cataract of both eyes with intraocular lens implantation bilat History of tooth extraction all teeth Family History Mother Family history of diabetes mellitus Other No family history of adverse response to anesthesia Social History Smoking Status: Never smoker Tobacco Type: Cigarettes Second Hand Exposure: No; Do You Dip or Chew Tobacco: No; Hx Alcohol Use: No Hx Substance Use: No Preferred Language: Indian Communication Ability: asleep Supervisor Customer Complaint Service Required: No Beliefs That Will Affect Care: None Current Living Situation: Spouse Feels Safe at Home: Yes Assistive Devices: Cane, CPAP and Walker Review of Systems 2 Review of Systems: Other (limited by pt mental status; tells me his back hurts; some urinary /fecal urgency; no sob no cough no chest pain) Physical Exam 2 Constitutional: well developed, + acute distress (mild anxiety about urinary urgency), + thin, + altered mental status, + frail appearing and cooperative Eyes: EOM intact bilaterally ENMT: Mouth: + dry oral mucous membranes Respiratory: normal respiratory effort Auscultation: + diminished lung sounds Cardiovascular: Rate/Rhythm: regular rate and regular rhythm Heart Sounds: no murmur Extremities: no edema Gastrointestinal (Abdomen): Inspection/Auscultation: normal bowel sounds P ercussion/Palpation: abdomen soft; abdomen nontender Musculoskeletal: Extremities: strength 5/5 throughout Skin: no rashes, warm and dry Neurologic: tidwell, fluent speech, no tremor Results & Data Vital Signs (Past 12 Hours) Vital Signs Temp Pulse Pulse Resp BP Pulse Ox O2 Del Method 10/29/24 06:55 Nasal Cannula 10/29/24 03:06 36.9 C 88 18 104/68 96 Nasal Cannula 10/29/24 00:00 10/28/24 23:00 117 H 10/28/24 22:53 37.4 C 107 H 18 110/72 92 Room Air 10/28/24 20:00 Nasal Cannula O2 Del Method O2 Flow Rate O2 Flow Rate 10/29/24 06:55 3 10/29/24 03:06 3 10/29/24 00:00 Nasal Cannula 3 10/28/24 23:00 10/28/24 22:53 10/28/24 20:00 3 Laboratory Results 10/29/24 05:56 10/29/24 05:[address] abdomen pelvis non con: Unremarkable adrenal; no hydronephrosis but limited evaluation for nephrolithiasis as contrast from prior CT scans remains visible in the kidneys TTE this admission: EF 30-35% with normal RV function and moderate aortic valve calcification with severity of likely under estimated due to challenging study; mild MR
[2024-10-29] MEDS: FUROSEMIDE 40 MG/4 ML VIAL IV ONE (08:22)
[2024-10-29 13:17] LABS: Appearance Urine Cloudy (Clear); Bacteria Urine Automated 4+ (None Seen); Cast Urine Automated 0-2 /lpf (0-2); Epithelial Cell Urine Auto 0-2 /hpf (0-2); Glucose Urine UA Negative (Negative); RBC Urine Automated 0-2 /hpf (0-2); WBC Urine Automated >50 /hpf (0-5)
--- NOTE | 2024-10-29 14:02 | Hospitalist Progress Note ---
Date of Service October 29, 2024 Assessment & Plan (1) Atypical chest pain: Plan: 89 year old male with past medical history significant for CHB s/p dual-chamber pacemaker (implanted 01/10/24), mild-moderate , HTN, HLD, orthostatic hypotension, history of cerebellar hemorrhage s/p surgery, history of traumatic subdural hematoma, ABDI (on CPAP), DM Type II, history of adrenal insufficiency, hypothyroidism, chronic anemia, GERD, prostate cancer s/p radiation, BPH, CKD stage III, mild cognitive impairment, and former smoker who presents with chest pain and confusion. As per , patient reported chest pain yesterday, followed by confusion, given Nitro x 2 with no improvement, then called EMS. Per patient is not typically confused. #NSTEMI -H/O complete heart block s/p PPM; h/o moderate ; follows [employer] [facility] -Trop initially 214->879->1528 > 2900 -EKG Atrial-sensed ventricular-paced rhythm, 71 bpm, QTc 506 -D-dimer 2200-> Chest CTA no PE, Mild interstitial pulmonary edema, Coronary artery calcifications, Moderate to severe aortic valve calcification. -Type I NSTEMI -TTE showing EF 30% Plan -Heparin drip stopped overnight on 10/26 due to new RP hematoma -Cardiology recommends conservative management given advanced age and dementia -continue rosuvastatin, metoprolol #RP hematoma #Acute blood loss anemia -CT showing new blood products in RP space, concerning for developing RP hematoma -Hb downtrended from 12 to 10 Plan -He is a poor candidate for surgical or interventional procedures -Monitor Hgb -Transfuse if < 7 #DIDIER Acute UTI Cr uptrended from 1.09 on 10/25 to 2.63 Urine analysis suggestive of infection given 1 dose of iv lasix on 10/29 with UO of 800cc monitor Creatinine #Altered Mental Status #Actue metabolic encephalopathy- resolved * Head CT showing no acute intracranial process. * Suspect hospital acquired delirium in setting of metabolic encephalopathy from DIDIER/NSTEMI * Continue prn Zyprexa * Avoid Beer's list medications * Delirium precautions and reorientation techniques Mentation appears to be baseline on 10/29 #Hypertensive Urgency -unable to take PO at this time due to agitation -BP is acceptable given his degree of illness #ABDI on room air * CPAP at home- continue HS here #Diabetes Mellitus * Home home oral medications, * well-controlled A1c of 5.16 March 2024 * BG goal 110-140 * SSI while inpatient #chronic anemia -Acute blood loss anemia in setting of chronic anemia -See above #Hypothyroidism * euthyroid as of recent outpatient TSH * Continue levothyroxine per home DVT Ppx: SCDs Code status: DNR/DNI PCP: Dr. Lan Dispo: Admit for further management and workup I spent a total of 65 minutes coordinating, documenting, and providing care for this patient excluding time spent in the performance of separately billed services. This included personally reviewing all current laboratories and imaging studies, medical reconciliation, outpatient chart review and discussion with specialists Admission and Anticipated Discharge Date Admission Date: October 27, 2024 Subjective Patient seen and examined at bedside. He is comfortable; not in any distress. Denies shortness of breath or chest pain Review of Systems Review of Systems: All systems reviewed & are unremarkable except as noted in Subjective Physical Exam Physical Exam: Vitals and labs reviewed General: comfortable, not in any ditress Cardiac: RRR no rubs gallops or murmurs Lungs: CTA no rhonchi wheezing or rales Abd: S NT ND BS positive Ext: No Edema cyanosis Skin: Warm, Dry Neuro: Alert and answering questions appropriately Psych: calm Results & Data Results & Data Vital Signs (Past 12 Hours) Vital Signs Temp Pulse Pulse Resp BP Pulse Ox O2 Del Method 10/29/24 11:17 36.9 C 93 H 18 129/81 95 Room Air 10/29/24 08:00 95 H 10/29/24 07:35 36.7 C 88 18 118/76 96 Nasal Cannula 10/29/24 06:55 Nasal Cannula 10/29/24 03:06 36.9 C 88 18 104/68 96 Nasal Cannula O2 Flow Rate 10/29/24 11:17 10/29/24 08:00 10/29/24 07:35 3 10/29/24 06:55 3 10/29/24 03:06 3
--- NOTE | 2024-10-29 14:48 | Palliative Care Progress Note ---
Date of Service October 29, 2024 Assessment & Plan (1) Lethargy: Plan: improving (2) Delirium of mixed origin: Plan: Today, 10/29: Pt remains confused, but more alert. He is oriented to person only. Standard Delirium Care - Search for occult etiologies of delirium including toxic, metabolic, and infectious. Medication effects and drug/ETOH withdrawal should also be sought. - Avoid restraints other than lap belts. Redirection by family/friends, or medical staff is more effective and promotes recovery. - Encourage patient to wear glasses and hearing aides - Encourage 24 hour visitation from family/friends - Encourage family/friends to redirect patient to avoid need for meds/restraints - Avoids benzos - Use atypical neuroleptics in a low scheduled dose in combination with PRN for agitation - Low dose IV morphine can be used with caution if neuroleptics fail for acute delirium - Redirection by family, friends, and medical staff can be more effective and safer than medication use. - Pain causes delirium and should be addressed in a balanced, conservative, but effective manner. - During the day, patient should be awake. Lights should be on. TV should be on. Patient should be placed in chair with restraints if possible and allowed into ibarra or outside in wheelchair if can tolerate. - At night, lights should be dimmed and stimulation should be minimized. A sched uled dose of neuroleptic may be given at least 2 hours prior to typical onset of - Room noises can cause anxiety inducing hallucinations. If the room is loud, has atypical noises (construction, beeping, loud neighbor, etc) or patient is having negative reaction to ambient stimuli, patient should be moved to another room - Nutritional status should be addressed. Any nutritional deficits should be aggressively remediated. - High carbohydrate meals should be served - Please make family aware that delirium may last for weeks to months. - Patients with baseline Organic brain syndrome are more prone to delirium and take longer to recover - Patient with baseline organic brain syndromes, especially neurodegenerative ones like Dementia of Alzheimer's type may never recovery back to pre-morbid baseline. 10/26: Spouse states that just one day prior to admission pt was at his baseline cognitive function. She shared that he was trying to fix a leaking commode at home and got frustrated, told her he was angry because he cannot do anything anymore and lay down for a nap. The pt reportedly woke later complaining of CP and then had an acute change in mental status to point of "speaking gibberish". We discussed delirium at length, She shared that the patient has been sleeping for 18-20hours per day for several months. Discussed hypoactive delirium and helped her understand differences between dementia and delirium. Unfortunately there are no known medications to cure or shorten the duration of delirium; rather PRN antipsychotics are recommended to help with sleep/appetite/psychomotor agitation and hallucinations if these symptoms are causing significant distress and/or interfering with acute safety. Duration of delirium varies broadly; persistent delirium occurs with many patients exhibiting some symptoms of delirium at 6 months after symptom onset. Goal is to avoid medication management of behaviors if possible by maximizing non-pharmacologic strategies for behavioral management. (3) Counseling regarding goals of care: Plan: Today 10/29: spoke with on phone from 14:00 - 14:30. Reviewed previous discussions, shared that she had spoke with her sons and they are in agreement to DNR/DNI. She questioned if there is anything that can be done to make him better. We discussed at length the patient's acute and chronic medical conditions, general prognosis, treatment options, and goals of care. Discussed the patient's current deconditioned state and that to regain strength would be a difficult journey. We discussed the pt's increased oxygen demand overnight as an indicator that the pt may be decompensating. She stated that she will share t his information with her two sons. SHe shared that she spoke with them last evening and they asked if she knew how much time the patient has. We discussed prognosis of weeks to months based on the following prognostic scores (calculation based on pt's current condition): Karnofsky Performance Status of 20 which correlates to a survival of 7-16 days. Palliative Prognostic Index (PPI) Score: 11 (PPI > 6 = approx survival of three weeks. Sensitivity 80% / Specificity 85%.) Sonido CY, Chi YS, Kulkarni HM, Sanchez JS, Jose TL, Alessandra CY, Caesar CC, Rafaela YC, Esvin JM, Blanca JH, Ahsan WC.Combination of initial palliative prognostic index and score change provides a better prognostic value for terminally ill cancer patients: a six- year observational cohort study https://www.ncbi.nlm.nih.gov/pubmed/62447740 . J Pain Symptom Manage. 2014;48(5):804-14. Palliative Prognostic Score (PaP - predicts 30 day survival probability in cancer and non cancer diagnoses): 16 = 30-day survival probability is less than 30% Michel Hall.Independent validation of Palliative Prognostic Score in terminally ill patients referred to a hospital-based palliative medicine consultation service https://www.ncbi.nlm.nih.gov/pubmed/86243183 . J Pain Symp Manage. 2001; 22(5):424652. Discussed that these prognostic scores are a general reflection of likely outcomes and that patient outcomes do vary. She shared that her son is going to be coming from [place], her other son is is [place] and his is undergoing cancer treatment so he cannot come to hospital at this time. I encouraged visitation and offered to hold a group phone call with her and sons to further discuss. She declined, stating she would think about it and let me know. At this time family requests DNR/DNI but continue all other life prolonging measures. 10/28: Attempt made to contact by phone, no answer, VM full. Requested BSRN notify me if arrives at bedside. 10/27: Met with pt and his at bedside. Pt mostly slept, but occasionally did interact in nonsensical/confused speech. We discussed at length the patient's acute and chronic medical conditions, general prognosis, treatment options, and goals of care. 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 One son lives in [place] and one in [place], but they remain involved in their life. She shared that the patient has had a progressive decline in his quality of life since February of this year. She shared that he no longer drives but was independent with his ADLs prior to admission. She shared that Bill has been sleeping more of the day than he is awake and she feels that he is frustrated with not being able to do anything that he used to do. She shared that the patient has told her multiple times over the past several weeks that if he keeps getting weaker she "should just let him ego". SHe shared that despite his progressive weakness and lethargy, he has remained lucid up to the day of admission. Discussed code status and helped her understand that CPR is only done after a person has and involves uncomfortable and invasive procedures that, if successful. have high risk of multiple complications including but not limited to rib fractures, pneumo/hemothorax, DIDIER, ventilator dependence, anoxic brain injury, and care home/permanent cognitive and functional deficits. Spouse made reference to patient's independent nature and recent poor quality of life, and shared that resuscitating him to a life that "would be less than what he was already not happy with" is probably not what he would want for himself. She shared that she has discussed this with both of their sons, and they seem to understand. I offered to bring he sons into conversation or have a family meeting to discuss in upcoming days. She politely declined. She shared that at this time she would like to continue full code, she will continue to think and discuss with her sons more this evening. Patient exhibits current lack of decisional capacity and does require a proxy for medical decisions. Hospital does not have written documentation of patient wishes concerning his chosen proxy for medical decisions. Per [place] [id number], in absence of written documentation of patient wishes, pt's proxy for medical decisions would be his . (4) Palliative care by specialist: Plan: Palliative care will continue to follow for ongoing ACP discussions and patient/family support. Plan as above Admission and Anticipated Discharge Date Admission Date: October 27, 2024 Subjective Assessed pt at bedside, he was awake and alert, remains confused. He was placed on supplemental oxygen overnight for hypoxia. He denies any discomfort this morning. NAD, VSS. No visitors present. Review of Systems Review of Systems: All systems reviewed & are unremarkable except as noted in Subjective Physical Exam Constitutional: WD/WN, vitals as above Eyes: PERRL, conjunctivae normal, anicteric sclerae Neck: trachea midline, no thyromegaly Respiratory: normal respiratory effort, lungs clear to auscultation Gastrointestinal (Abdomen): normal bowel sounds, soft, nontender, no hepatosplenomegaly Musculoskeletal: no cyanosis or clubbing, extremities motor strength 5/5 Neurologic: + confused Speech / Cognition: + abno rmal cognition Psychiatric: Orientation: oriented to person; + not alert, + not oriented to place and + not oriented to time Insight: + poor insight Results & Data Vital Signs (Past 12 Hours) Vital Signs Temp Pulse Pulse Resp BP Pulse Ox O2 Del Method 10/29/24 14:27 91 H 10/29/24 11:17 36.9 C 93 H 18 129/81 95 Room Air 10/29/24 08:00 95 H 10/29/24 07:35 36.7 C 88 18 118/76 96 Nasal Cannula 10/29/24 06:55 Nasal Cannula 10/29/24 03:06 36.9 C 88 18 104/68 96 Nasal Cannula O2 Flow Rate 10/29/24 14:27 10/29/24 11:17 10/29/24 08:00 10/29/24 07:35 3 10/29/24 06:55 3 10/29/24 03:06 3 Laboratory Results Abnormal lab results 10/28/24 10/28/24 10/28/24 Range/Units 15:20 16:39 19:51 RBC (4.70-6.10) M/uL Hgb 11.0 L (14.0-18.0) g/dl Hct (42.0-52.0) % BUN (6-23) mg/dl Creatinine (0.6-1.4) mg/dl Glucose (70-99(Fasting)) mg/dl POC Glucose 116 H 143 H (70-99) mg/dl Urine Appearance (Clear) Urine Blood (Negative) Ur Leukocyte Esterase (Negative) Urine WBC (Auto) (0-5) /hpf Urine Bacteria (Auto) (None Seen) 10/28/24 10/29/24 10/29/24 Range/Units 23:26 05:56 07:40 RBC 3.37 L (4.70-6.10) M/uL Hgb 10.1 L 10.3 L (14.0-18.0) g/dl Hct 30.9 L (42.0-52.0) % BUN 45 H (6-23) mg/dl Creatinine 2.63 H (0.6-1.4) mg/dl Glucose 102 H (70-99(Fasting)) mg/dl POC Glucose 107 H (70-99) mg/dl Urine Appearance (Clear) Urine Blood (Negative) Ur Leukocyte Esterase (Negative) Urine WBC (Auto) (0-5) /hpf Urine Bacteria (Auto) (None Seen) 10/29/24 10/29/24 Range/Units 11:16 Unknown RBC (4.70-6.10) M/uL Hgb (14.0-18.0) g/dl Hct (42.0-52.0) % BUN (6-23) mg/dl Creatinine (0.6-1.4) mg/dl Glucose (70-99(Fasting)) mg/dl POC Glucose 112 H (70-99) mg/dl Urine Appearance Cloudy A (Clear) Urine Blood 1+ H (Negative) Ur Leukocyte Esterase 3+ H (Negative) Urine WBC (Auto) >50 H (0-5) /hpf Urine Bacteria (Auto) 4+ H (None Seen) Diagnostic Findings Head CT 10/25/24 22:05 CR Exam(s): CT HEAD Without Contrast EXAM: CT Head Without Intravenous Contrast CLINICAL HISTORY: Reason for exam: neuro deficit, acute stroke suspected. TECHNIQUE: Axial computed tomography images of the head/brain without intravenous contrast. CTDI is 37.42 mGy and DLP is 624.41 mGy-cm. Automated exposure control was utilized for the study. A dose lowering technique was utilized adhering to the principles of ALARA. COMPARISON: No relevant prior studies available. FINDINGS: Brain: Left cerebellar encephalomalacia/resection cavity. West-white matter differentiation maintained. Generalized parenchymal volume loss and chronic small-vessel ischemic changes. No acute hemorrhage. No mass effect or midline shift. Ventricles: No hydrocephalus. Bones/joints: Left suboccipital craniectomy. No skull fracture. Soft tissues: Unremarkable. Vasculature: Intracranial atherosclerosis. Sinuses: Unremarkable as visualized. Mastoid air cells: No significant mastoid effusion. Orbits: Lens replacements. IMPRESSION: No acute intracranial process. Communications: Call Doctor Stroke Electronically signed by: Evie Maria M.D. 10/25/24 22:44 PM Head CTA 10/25/24 22:05 CR Exam(s): CTA HEAD With Contrast IV Amt: 119ml optiray 320 EXAM: CT Angiography Head With Intravenous Contrast CLINICAL HISTORY: Reason for exam: neuro deficit, acute stroke suspected. TECHNIQUE: Axial computed tomographic angiography images of the head with intravenous contrast. CTDI is 37.42 mGy and DLP is 624.41 mGy-cm. Automated exposure control was utilized for the study. A dose lowering technique was utilized adhering to the principles of ALARA. MIP reconstructed images were created and reviewed. CONTRAST: Patient received 119ml optiray 320 of IV contrast COMPARISON: Same-day head CT FINDINGS: Limitations: Motion artifact. Right internal carotid artery: No acute findings. Intracranial segment is patent with no significant stenosis. No aneurysm. Right anterior cerebral artery: Unremarkable. No occlusion or significant stenosis. No aneurysm. Right middle cerebral artery: Unremarkable. No occlusion or significant stenosis. No aneurysm. Right posterior cerebral artery: Unremarkable. No occlusion or significant stenosis. No aneurysm. Right vertebral artery: Unremarkable as visualized. Left internal carotid artery: No acute findings. Intracranial segment is patent with no significant stenosis. No aneurysm. Left anterior cerebral artery: Unremarkable. No occlusion or significant stenosis. No aneurysm. Left middle cerebral artery: Unremarkable. No occlusion or significant stenosis. No aneurysm. Left posterior cerebral artery: Unremarkable. No occlusion or significant stenosis. No aneurysm. Left vertebral artery: Unremarkable as visualized. Basilar artery: Unremarkable. No occlusion or significant stenosis. No aneurysm. IMPRESSION: Patent intracranial circulation. Communications: Call Doctor Stroke Electronically signed by: Evie Maria M.D. 10/25/24 22:43 PM Neck CTA 10/25/24 22:05 CR Exam(s): CTA NECK With Contrast IV Amt: 119ml optiray 320 EXAM: CT Angiography Neck With Intravenous Contrast CLINICAL HISTORY: Reason for exam: neuro deficit, acute stroke suspected. TECHNIQUE: Routine carotid CT angiography protocol was performed with intravenous contrast. NASCET criteria using the distal ICAs for comparison were used for evaluation of stenoses. CTDI is 26.99 mGy and DLP is 497.85 mGy-cm. Automated exposure control was utilized for the study. A dose lowering technique was utilized adhering to the principles of ALARA. MIP reconstructed images were created and reviewed. CONTRAST: Patient received 119ml optiray 320 of IV contrast COMPARISON: None. FINDINGS: Limitations: Motion. VASCULATURE: Right common carotid artery: Unremarkable. No occlusion or significant stenosis. No dissection. Right internal carotid artery: Atherosclerotic plaque producing severe stenosis in the proximal segment of the right ICA. No dissection. Right external carotid artery: Unremarkable. No occlusion. Right vertebral artery: Unremarkable. No occlusion or significant stenosis. No dissection. Left common carotid artery: Unremarkable. No occlusion or significant stenosis. No dissection. Left internal carotid artery: Unremarkable. Extracranial segment is patent with no occlusion or significant stenosis. No dissection. Left external carotid artery: Unremarkable. No occlusion. Left vertebral artery: Unremarkable. No occlusion or significant stenosis. No dissection. NECK: Bones/joints: Degenerative change in the cervical spine. No acute fracture. Soft tissues: Unremarkable. Lung apices: Clear. CAROTID STENOSIS REFERENCE USING NASCET CRITERIA: % ICA stenosis = (1 - narrowest ICA diameter/diameter of distal cervical ICA) x 100. Mild - <50% stenosis. Moderate - 50-69% stenosis. Severe - 70-94% stenosis. Near occlusion - 95-99% stenosis. Occluded - 100% stenosis. IMPRESSION: Noncalcified atherosclerotic plaque producing severe stenosis in the proximal segment of the right ICA. Communications: Call Doctor Stroke Electronically signed by: Evie Maria M.D. 10/25/24 22:47 PM Chest CTA 10/26/24 01:40 HISTORY: Chest pain. TECHNIQUE: CT angiography of the chest was performed with IV contrast. Images are presented in axial, sagittal, and coronal reformats. Coronal and sagittal 3D MIP reconstructions are also provided. COMPARISON: Chest CT dated 03/14/2024. FINDINGS: Lungs: Mild interstitial pulmonary edema. Atelectasis or parenchymal scarring along the dependent aspect both lower lobes. No pneumothorax or effusion. Mild mucoid debris along the left aspect of the distal trachea. The central tracheobronchial tree is otherwise patent. There is mild diffuse bronchial wall thickening. Heart/Mediastinum: Top normal heart size. Coronary artery calcifications are present. Severe aortic valvular calcification. Mitral annular calcification. No suspicious mediastinal or hilar lymph nodes. Thoracic esophagus is unremarkable. Vasculature: The pulmonary arteries are well-evaluated to the level of the lobar vessels. The segmental and subsegmental vessels are limited due to respiratory motion artifact and contrast timing. No evidence of acute pulmonary embolism within the limitations. The main pulmonary artery is normal in caliber. No thoracic aortic aneurysm. Mild atherosclerotic vascular disease involving the aorta and arch vessels. Soft Tissues: No enlarged axillary lymph nodes. Pacer generator pack in the superior aspect of the ventral left chest wall. Upper Abdomen: Contrast is present in the renal collecting systems. Symmetric perinephric stranding is noted. The included upper abdomen is otherwise unremarkable. Bones: Severe/end-stage arthrosis of the glenohumeral joints.Degenerative changes of the spine.R emote healed rib fractures are noted. IMPRESSION: * No evidence of acute pulmonary embolism within the limitations of contrast timing and respiratory motion artifact. * Mild interstitial pulmonary edema. Top normal heart size. * Coronary artery calcifications are present. Moderate to severe aortic valve calcification. * Additional chronic and/or incidental findings as above. ACT 112: Positive. There are findings on this exam that require communication between the performing entity and the patient following Patient Test Result Information Act ([place] ACT 112) guidelines. Electronically signed by Stanley Elkins 10-26-2024 08:30 AM Venous Doppler Study 10/26/24 03:59 HISTORY: Lower extremity pain/edema. TECHNIQUE: Bilateral lower extremity venous Doppler evaluation for DVT. Grayscale, color Doppler, and spectral Doppler imaging was utilized. COMPARISON: None. FINDINGS: Right lower extremity: The common femoral vein and greater saphenous junction appear color Doppler patent and compressible. The deep femoral vein and femoral vein appear color Doppler patent and compressible. The popliteal vein appears color Doppler patent and compressible. The posterior tibial, peroneal, and anterior tibial veins appear color Doppler patent. Respiratory variation and augmentation is noted. Surrounding soft tissues are unremarkable. Left lower extremity: The common femoral vein and greater saphenous junction appear color Doppler patent and compressible. The deep femoral vein and femoral vein appear color Doppler patent and compressible. The popliteal vein, posterior tibial vein, peroneal vein, and anterior tibial vein appear color Doppler patent and compressible. Respiratory variation and augmentation is noted. The surrounding soft tissues are unremarkable. IMPRESSION: No evidence of lower extremity DVT. Electronically signed by Stanley Elkins 10-26-2024 13:06 PM Abdomen/Pelvis CT 10/26/24 19:48 Exam(s): CT ABDOMEN + PELVIS Without Contrast EXAM: CT Abdomen and Pelvis Without Intravenous Contrast CLINICAL HISTORY: back pain, heparin. TECHNIQUE: Axial computed tomography images of the abdomen and pelvis without intravenous contrast. CTDI is 33.41 mGy and DLP is 1763.9 mGy-cm. Automated exposure control was utilized for the study. A dose lowering technique was utilized adhering to the principles of ALARA. COMPARISON: CT abdomen and pelvis with contrast dated 03/14/2024 FINDINGS: Artifacts: Scatter artifact likely related to patient's arm position. Limitations: There is diffuse respiratory artifact, which degrades image quality throughout the examination. Lung bases: Unremarkable. No mass. No consolidation. Pleural space: Curvilinear changes noted at the lung bases. Evaluation is limited by respiratory artifact. No pleural effusion. ABDOMEN: Liver: Unremarkable. Gallbladder and bile ducts: Excreted contrast in the gallbladder. No gallbladder wall thickening or biliary dilatation. No calcified stones. Pancreas: Unremarkable. No ductal dilation. Spleen: The spleen is grossly unremarkable, accounting for limitations. Adrenals: Unremarkable. No mass. Kidneys and ureters: The kidneys demonstrate enhancement presumably from recent CTA examination of the head. No hydronephrosis. Evaluation for nephrolithiasis is limited with excreted contrast in the renal collecting systems and throughout the ureters. Stomach and bowel: No bowel obstruction. Evaluation of the bowel is limited without contrast and respiratory artifact. Mild stool burden. No appreciable diverticulitis. PELVIS: Appendix: The appendix is not clearly delineated. Bladder: The bladder is moderately distended. No bladder wall thickening or bladder stones. Reproductive: Unremarkable as visualized. ABDOMEN and PELVIS: Intraperitoneal space: Unremarkable. No free air. No significant fluid collection. Retroperitoneal space: There is hyperdense fat stranding involving the retroperitoneum bilaterally, right side slightly greater than left. No well-defined hematoma. Bones/joints: Bilateral hip arthroplasties noted. No acute osseous abnormality. Soft tissues: Unremarkable. Vasculature: Subtle ectasia with atherosclerotic calcification of the aorta. However, there appears to be preservation of the fat plane surrounding the aorta without evidence for periaortic hematoma. No abdominal aortic aneurysm. Lymph nodes: Unremarkable. No enlarged lymph nodes. IMPRESSION: There is hyperdense fat stranding involving the retroperitoneum bilaterally, right side slightly greater than left. No well-defined hematoma. The appearance suggests retroperitoneal hemorrhagic products. The source of the hemorrhage is not clearly delineated on this noncontrast examination. If the patient fails to respond to potential fluid resuscitation efforts, there should be a low threshold for repeat imaging. Electronically signed by: Nile Irwin MD 10/27/24 00:00 AM Chest X-Ray 10/28/24 16:06 EXAM: X-ray chest one-view portable CLINICAL HISTORY: New hypoxia PRIORS: CT 10/26/2024 TECHNIQUE: Frontal view chest FINDINGS: Patient rotated. Left-sided cardiac device noted. The chest is well-expanded. Diffuse interstitial prominence Noted, most pronounced centrally increased or new when compared to recent CT, allowing for differences in technique. No large confluent opacification. Heart size is normal. No pneumothorax. Trachea is patent. Osseous structures demonstrate no acute abnormality. No radiopaque foreign body. IMPRESSION: Increased interstitial prominence throughout the lungs, predominantly centrally located which may suggest volume overload in the proper clinical setting. Electronically signed by Galina Brooks 10-28-2024 5:41 PM Medications Administered Current Inpatient Medications Acetaminophen (Acetaminophen 500 Mg Tab) 500 mg PO Q4H PRN PRN Reason: Mild Pain (Scale 1, 2, 3) Stop: 11/27/24 15:45 Last Admin: 10/29/24 11:59 Dose: 500 mg Cyanocobalamin (Cyanocobalamin (B-12) 500 Mcg Tablet) [facility] Stop: 11/25/24 08:59 Last Admin: 10/29/24 08:10 Dose: 1,000 mcg Dextrose (Dextrose 50% 50 Ml Syringe) 25 - 50 ml IV UD PRN; Protocol PRN Reason: Hypoglycemia Protocol Stop: 11/25/24 00:16 Duloxetine HCl (Duloxetine Hcl 60 Mg Cap) [facility]: 11/25/24 08:59 Last Admin: 10/29/24 08:10 Dose: 60 mg Finasteride (Finasteride 5 Mg Tab) [facility] Stop: 11/25/24 08:59 Last Admin: 10/29/24 08:10 Dose: 5 mg Glucagon (Glucagon For Inj 1 Mg Vial) 1 mg SQ UD PRN; Protocol PRN Reason: Hypoglycemia Protocol Stop: 11/25/24 00:16 Glucose (Glucose 40% Gel 15 Gm Tube) 15 - 30 gm PO UD PRN; Protocol PRN Reason: Hypoglycemia Protocol Stop: 11/25/24 00:16 Glucose (Glucose 10 Tab/Tube) 4 - 8 tab PO UD PRN; Protocol PRN Reason: Hypoglycemia Protocol Stop: 11/25/24 00:16 Ceftriaxone Sodium (Rocephin) 2,000 mg in 50 mls @ 100 mls/hr IV Q24H [facility] Stop: 11/03/24 13:59 Insulin Aspart (Insulin Aspart Per Unit Charge) 0 units SC ACHS [facility] Stop: 11/25/24 11:00 Last Admin: 10/29/24 12:38 Dose: 1 units Levothyroxine Sodium (Levothyroxine Sodium 75 Mcg Tablet) 75 mcg PO DAILYBB [facility] Stop: 11/25/24 06:29 Last Admin: 10/29/24 05:35 Dose: 75 mcg Metoprolol Succinate (Metoprolol Succ 25mg Ext Rel Tab) 25 mg PO AMHS [facility] Stop: 11/25/24 08:59 Last Admin: 10/29/24 08:10 Dose: 25 mg Miscellaneous (Carbohydrates For Hypoglycemia ) 15 - 30 gm PO UD PRN PRN Reason: Hypoglycemia Protocol Stop: 11/25/24 00:16 Olanzapine (Olanzapine 10 Mg/2.1 Ml Sdv) 2.5 mg IM Q4H PRN PRN Reason: Agitation Stop: 11/24/24 23:16 Prenat Multivit/Diagonal/Iron/Folic Ac ( Vitamin 1 Tab) 1 tab PO QAM [facility] Stop: 11/25/24 08:59 Last Admin: 10/29/24 08:10 Dose: 1 tab Rosuvastatin Calcium (Rosuvastatin Calcium 10 Mg Tab) 10 mg PO HS [facility] Stop: 11/25/24 20:59 Last Admin: 10/28/24 20:25 Dose: 10 mg Tamsulosin HCl (Tamsulosin Hcl 0.4 Mg Cap) 0.4 mg PO HS [facility] Stop: 11/25/24 20:59 Last Admin: 10/28/24 20:25 Dose: 0.4 mg Vitamin D (Cholecalciferol 25 Mcg (1000 Units) Tab) 25 mcg PO QAM [facility] Stop: 11/25/24 08:59 Last Admin: 10/29/24 08:10 Dose: 25 mcg PG Care Time/CCT Total # of Minutes Spent Total Time Spent with Patient: Total time spent is greater than 50% in coordination of care (as documented) at patient's floor/unit and/or counseling patient: Advanced Care Planning 77094 Advanced Care Planning 30 Min C[place] [address] SUB INP/OBS CARE 2/35MIN Patient Type Established History Expanded Problem Focused Exam Expanded Problem Focused Medical Decision Making Moderate Complexity Diagnoses Lethargy R53.83 Delirium of mixed origin F05 Counseling regarding goals of care Z71.89 Palliative care by specialist Z51.5 Additional Codes Advanced Care Planning - 28380 Advanced Care Planning 30 Min: 52918 Advanced Care Planning 30 Min ([id number])
[2024-10-29] MEDS: cefTRIAXone SODIUM 2,000 MG/50 ML BAG IV SCH (15:12)
[2024-10-30 06:25] LABS: Hematocrit (blood only) 29.1 % (42.0-52.0); Hemoglobin 9.6 g/dl (14.0-18.0); Mean Corpuscular Hemoglobin 29.9 pg (25.0-34.0); Mean Corpuscular Volume 90.7 fL (80.0-100.0); Platelet Count 137 K/uL (130-400); RDW Standard Deviation 44.8 fL (36.4-46.3); Red Blood Count 3.21 M/uL (4.70-6.10); White Blood Count 6.89 K/ul (4.8-10.8)
[2024-10-30 06:53] LABS: Anion Gap 12.0 (3-11); Blood Urea Nitrogen 57.0 mg/dl (6-23); Calcium 8.6 mg/dl (8.6-10.3); Carbon Dioxide 21.0 mmol/L (21-32); Chloride 103.0 mmol/L (98-107); Creatinine Clr Calc Pharmacy 16.2 ml/min; Glucose 129.0 mg/dl (70-99(Fasting)); Potassium 3.6 mmol/L (3.5-5.1); Sodium 136.0 mmol/L (136-145)
--- NOTE | 2024-10-30 09:50 | Ultrasound Report ---
RENAL ULTRASOUND HISTORY: rule out obstruction COMPARISON: CT of 10/26/2024 FINDINGS: Right kidney measures 11 x 5 cm. Left kidney measures 11 x 5 cm. There is stable mild bilat eral hydronephrosis. There are a few cysts in both kidneys, largest measuring 2 cm on the left. Urina ry bladder is distended. IMPRESSION: Distended urinary bladder with mild bilateral hydronephrosis, stable. ACT 112: Negative or not required by law. Electronically signed by: Kyle Love M.D. 10/30/2024 9:48 AM
--- NOTE | 2024-10-30 10:03 | Hospitalist Progress Note ---
Date of Service October 30, 2024 Assessment & Plan (1) Atypical chest pain: Plan: 89 year old male with past medical history significant for CHB s/p dual-chamber pacemaker (implanted 01/10/24), mild-moderate , HTN, HLD, orthostatic hypotension, history of cerebellar hemorrhage s/p surgery, history of traumatic subdural hematoma, ABDI (on CPAP), DM Type II, history of adrenal insufficiency, hypothyroidism, chronic anemia, GERD, prostate cancer s/p radiation, BPH, CKD stage III, mild cognitive impairment, and former smoker who presents with chest pain and confusion. As per , patient reported chest pain yesterday, followed by confusion, given Nitro x 2 with no improvement, then called EMS #NSTEMI -H/O complete heart block s/p PPM; h/o moderate ; follows [facility] -Trop initially 214->879->1528 > 2900 -EKG Atrial-sensed ventricular-paced rhythm, 71 bpm, QTc 506 -D-dimer 2200-> Chest CTA no PE, Mild interstitial pulmonary edema, Coronary artery calcifications, Moderate to severe aortic valve calcification. -Type I NSTEMI -TTE showing EF 30% Plan -Heparin drip stopped overnight on 10/26 due to new RP hematoma -Cardiology recommends conservative management given advanced age and dementia -continue rosuvastatin, metoprolol #RP hematoma #Acute blood loss anemia -CT showing new blood products in RP space, concerning for developing RP hematoma -Hb downtrended from 12 to 10, 9.6 today Plan -He is a poor candidate for surgical or interventional procedures -Monitor Hgb -Transfuse if < 7 #DIDIER Acute UTI Cr uptrended from 1.09 on 10/25 to 3.48 Urine analysis suggestive of infection given 1 dose of iv lasix on 10/29 with UO of 800cc Renal usg shows distended bladder with bilateral hydronephrosis will plan to place smart for drainage. #Altered Mental Status #Actue metabolic encephalopathy- resolved * Head CT showing no acute intracranial process. * Suspect hospital acquired delirium in setting of metabolic encephalopathy from DIDIER/NSTEMI * Continue prn Zyprexa * Avoid Beer's list medications * Delirium precautions and reorientation techniques Mentation appears to be baseline on 10/29 #Hypertensive Urgency -unable to take PO at this time due to agitation -BP is acceptable given his degree of illness #ABDI on room air * CPAP at home- continue HS here #Diabetes Mellitus * Home home oral medications, * well-controlled A1c of 5.16 March 2024 * BG goal 110-140 * SSI while inpatient #chronic anemia -Acute blood loss anemia in setting of chronic anemia -See above #Hypothyroidism * euthyroid as of recent outpatient TSH * Continue levothyroxine per home DVT Ppx: SCDs Code status: DNR/DNI PCP: Dr. Lan Dispo: Admit for further management and workup Updated patient's at bedside on 10/29, provided updates. confirmed code status of dnr/dni. Plan to continue medications; if patient decompensates- plan to switch over to comfort care. I spent a total of 55 minutes coordinating, documenting, and providing care for this patient excluding time spent in the performance of separately billed services. This included personally reviewing all current laboratories and imaging studies, medical reconciliation, outpatient chart review and discussion with specialists Admission and Anticipated Discharge Date Admission Date: October 27, 2024 Subjective Patient seen and examined at bedside. He is comfortable; not in distress. Urine output of 1L overnight. Review of Systems Review of Systems: All systems reviewed & are unremarkable except as noted in Subjective Physical Exam Physical Exam: Vitals and labs reviewed General: comfortable, not in any ditress Cardiac: RRR no rubs gallops or murmurs Lungs: CTA no rhonchi wheezing or rales Abd: S NT ND BS positive Ext: No Edema cyanosis Skin: Warm, Dry Neuro: Alert and answering questions appropriately Psych: calm Results & Data Results & Data Vital Signs (Past 12 Hours) Vital Signs Temp Pulse Pulse Resp BP Pulse Ox O2 Del Method 10/30/24 03:18 36.6 C 115 H 18 118/75 93 Nasal Cannula 10/30/24 00:15 98 H 10/30/24 00:00 10/29/24 22:49 36.5 C 107 H 18 118/76 98 Room Air O2 Del Method O2 Flow Rate O2 Flow Rate 10/30/24 03:18 3 10/30/24 00:15 10/30/24 00:00 Nasal Cannula 4 10/29/24 22:49
--- NOTE | 2024-10-30 12:13 | Nephrology Progress Note ---
Date of Service October 30, 2024 Assessment & Plan (1) DIDIER (acute kidney injury): Plan: worsening now Stage 3 DIDIER From contrast induced nephropathy in a patient with new heart failure rEF, already on low-dose outpatient Lasix thrice weekly; with presenting creatinine October 25 1.1 (baseline 1.0-1.1), rapid uptake in creatinine to 1.59 hours after initial labs. But this was already after significant IV contrast load. Creatinine plateau'd then pt had obligate lasix 10/29 and creatinine up to 3.5 10/30. no obstruction on initial renal imaging but some seen in f/u study. chemistries acceptable but with mild volume overload. Not likely oliguric though output tracking incomplete. -UA concerning for possible UTI > on empiric ceftriaxone >given concerns for AMS and new mild retention consider blood cultures; he tells me he's had smart x mos before -daily basic metabolic panel -no indication at this time for dialysis discussion; recent goals of care discussions noted and he is not a candidate -no further IV contrast unless life and limb saving - please continue to avoid nephrotoxins - no further diuretics unless abrupt decompensation; re-evaluate every day for opportunity to start goal-directed medical therapy for heart failure but for now would not initiate SGLT2 I or diuretics care coordinated w/ Dr Hernandez via [employer] re possible blood cxs, renal dispo; we are in agreement Admission and Anticipated Discharge Date Admission Date: October 27, 2024 Subjective renal u/s w/ mild obstruction; smart planned; pt tells mehe's cold, he's not sob, he's achy; no diarrhea; ate half his lunch b/c it was cold he states Review of Systems 2 Review of Systems: All systems reviewed & are unremarkable except as noted in Subjective Physical Exam 2 Constitutional: well developed, + thin, + frail appearing and cooperative; no acute distress and no altered mental status (not obviously confused today) Eyes: EOM intact bilaterally ENMT: Mouth: + dry oral mucous membranes Respiratory: normal respiratory effort Auscultation: + diminished lung sounds Cardiovascular: Rate/Rhythm: regular rhythm and + tachycardic Heart Sounds: no murmur Extremities: no edema Gastrointestinal (Abdomen): Inspection/Auscultation: normal bowel sounds P ercussion/Palpation: abdomen soft; abdomen nontender Musculoskeletal: Extremities: strength 5/5 throughout Skin: no rashes, warm and dry Results & Data Vital Signs (Past 12 Hours) Vital Signs Temp Pulse Pulse Resp BP BP Pulse Ox 10/30/24 11:08 36.8 C 93 H 18 124/75 93 10/30/24 11:00 10/30/24 03:18 36.6 C 115 H 18 118/75 93 10/30/24 00:15 98 H Pulse Ox Pulse Ox O2 Del Method O2 Flow Rate O2 Flow Rate O2 Flow Rate 10/30/24 11:08 Room Air 10/30/24 11:00 93 93 0 0 10/30/24 03:18 Nasal Cannula 3 10/30/24 00:15 Laboratory Results 10/30/24 05:36 10/30/24 05:36 Diagnostic Findings renal u/s reviewed report
[2024-10-30] MEDS: AMPICILLIN 2,000 MG in SODIUM CHLOR 0.9% MINI-B 100 ML IV SCH (16:49)
[2024-10-31 06:13] LABS: Hematocrit (blood only) 30.1 % (42.0-52.0); Hemoglobin 10.5 g/dl (14.0-18.0); Mean Corpuscular Hemoglobin 31.3 pg (25.0-34.0); Mean Corpuscular Volume 89.6 fL (80.0-100.0); Platelet Count 170 K/uL (130-400); RDW Standard Deviation 43.6 fL (36.4-46.3); Red Blood Count 3.36 M/uL (4.70-6.10); White Blood Count 6.50 K/ul (4.8-10.8)
[2024-10-31 06:27] LABS: Anion Gap 9.0 (3-11); Blood Urea Nitrogen 39.0 mg/dl (6-23); Calcium 8.8 mg/dl (8.6-10.3); Carbon Dioxide 22.0 mmol/L (21-32); Chloride 105.0 mmol/L (98-107); Creatinine Clr Calc Pharmacy 32.0 ml/min; Glucose 93.0 mg/dl (70-99(Fasting)); Potassium 3.6 mmol/L (3.5-5.1); Sodium 136.0 mmol/L (136-145)
--- NOTE | 2024-10-31 09:55 | Nephrology Progress Note ---
Date of Service October 31, 2024 Assessment & Plan (1) DIDIER (acute kidney injury): Plan: markedly improved multifactorial Stage 3 DIDIER From obstruction and earlier this admission also with contrast induced nephropathy in a patient with new heart failure rEF, already on low-dose outpatient Lasix thrice weekly; with presenting creatinine October 25 1.1 (baseline 1.0-1.1), rapid uptake in creatinine to 1.59 hours after initial labs. But this was already after significant IV contrast load. Creatinine plateau'd then pt had obligate lasix 10/29 and creatinine up to peak at 3.5 10/30. no obstruction on initial renal imaging but some seen in f/u study. chemistries acceptable but with mild volume overload. Not likely oliguric though output tracking incomplete. -urine cx grew tomlin Se E faecalis > ceftriaxone changed to ampicillin >given concerns for AMS and new mild retention obtained blood cultures which are pending; he tells me he's had smart x mos before -daily basic metabolic panel >f/u pending blood cultures > NGTD at 24hr -maintain smart -no further IV contrast unless life and limb saving - please continue to avoid nephrotoxins - no immediate diuretics unless abrupt decompensation; re-evaluate every day for opportunity to start goal-directed medical therapy for heart failure but for now would not initiate SGLT2 I or diuretics >> DID however orders IV lasix for am as below Will sign off DX -improving Stage 3 DIDIER from contrast induced nephropathy, cardiorenal syndrome, obstruction -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 30%<<<NEW DIAGNOSIS (EF 50% in Mar 2024) RX -lasix 20 mg bid17 -potassium 10 mEq dialy -continue metoprolol OP dose OTHER CARE -weekly bmp after d/c x 3 to be ordered by neph nurse -continue nsaid avoidance -monitor BP mwf >> send log to f/u appts w/ nephro, cardiology, pcp -suggest given new dx of ischemic [employer] asking cardiology for recs on d/c meds and f/u appt timeframe F/U APPTS -w/ cardiology per their recs -w/ me in CKD clinic [facility] in 3-4 wks hospital d/c appt care coordinated w/ Dr Hernandez via TText re possible blood cxs, renal dispo; we are in agreement (2) Cardiomyopathy: Plan: severe [employer] per cardiology likely ischemic w/ EF 30% >>>recommend starting frequent low dose lasix tomorrow given lung crackles > suggest bid 10 mg IV to start for example and have ordered for am -would defer on adding other GDMT until after d/c and per cardiology OP recs Admission and Anticipated Discharge Date Admission Date: October 27, 2024 Subjective trending to F this am w/ temp 38.1; seen on mid AM rounds ; no c/o except some mild back pain; no sob, no n/v, no f/c or edema; has smart and tolerating. Review of Systems 2 Review of Systems: All systems reviewed & are unremarkable except as noted in Subjective Physical Exam 2 Constitutional: well developed, + thin, + frail appearing and cooperative; no acute distress and no altered mental status (not obviously confused today) Eyes: EOM intact bilaterally ENMT: Mouth: + dry oral mucous membranes Respiratory: normal respiratory effort Auscultation: + diminished lung sounds and + crackles Cardiovascular: Rate/Rhythm: regular rate, regular rhythm and + tachycardic Heart Sounds: no murmur Extremities: no edema Gastrointestinal (Abdomen): Inspection/Auscultation: normal bowel sounds P ercussion/Palpation: abdomen soft; abdomen nontender Musculoskeletal: Extremities: strength 5/5 throughout Skin: no rashes, warm and dry Results & Data Vital Signs (Past 12 Hours) Vital Signs Temp Pulse Resp BP Pulse Ox O2 Del Method 10/31/24 07:25 38.1 C H 102 H 18 116/75 92 Room Air 10/31/24 03:09 37.4 C 108 H 18 119/70 88 L Room Air 10/30/24 22:28 37.3 C 98 H 18 108/64 92 Room Air Laboratory Results 10/31/24 05:31 10/31/24 05:31
--- NOTE | 2024-10-31 12:59 | Hospitalist Progress Note ---
Date of Service October 31, 2024 Assessment & Plan (1) Atypical chest pain: Plan: 89 year old male with past medical history significant for CHB s/p dual-chamber pacemaker (implanted 01/10/24), mild-moderate , HTN, HLD, orthostatic hypotension, history of cerebellar hemorrhage s/p surgery, history of traumatic subdural hematoma, ABDI (on CPAP), DM Type II, history of adrenal insufficiency, hypothyroidism, chronic anemia, GERD, prostate cancer s/p radiation, BPH, CKD stage III, mild cognitive impairment, and former smoker who presents with chest pain and confusion. As per , patient reported chest pain yesterday, followed by confusion, given Nitro x 2 with no improvement, then called EMS #NSTEMI -H/O complete heart block s/p PPM; h/o moderate ; follows [facility] -Trop initially 214->879->1528 > 2900 -EKG Atrial-sensed ventricular-paced rhythm, 71 bpm, QTc 506 -D-dimer 2200-> Chest CTA no PE, Mild interstitial pulmonary edema, Coronary artery calcifications, Moderate to severe aortic valve calcification. -Type I NSTEMI -TTE showing EF 30% Plan -Heparin drip stopped overnight on 10/26 due to new RP hematoma -Cardiology recommends conservative management given advanced age and dementia -continue rosuvastatin, metoprolol #RP hematoma #Acute blood loss anemia -CT showing new blood products in RP space, concerning for developing RP hematoma -Hb downtrended from 12 to 10, Plan -He is a poor candidate for surgical or interventional procedures -Monitor Hgb -Transfuse if < 7 #DIDIER Acute UTI Acute urinary retention s/p smart Cr uptrended from 1.09 on 10/25 to 3.48 Urine analysis suggestive of infection given 1 dose of iv lasix on 10/29 with UO of 800cc Renal usg shows distended bladder with bilateral hydronephrosis Creatinine improved with smart placement. Urine cx growing E. faecalis; sensitive to E.Faecalis. #Altered Mental Status #Actue metabolic encephalopathy- resolved * Head CT showing no acute intracranial process. * Suspect hospital acquired delirium in setting of metabolic encephalopathy from DIDIER/NSTEMI * Continue prn Zyprexa * Avoid Beer's list medications * Delirium precautions and reorientation techniques Mentation appears to be baseline on 10/29 #Hypertensive Urgency -BP is acceptable given his degree of illness #ABDI on room air * CPAP at home- continue HS here #Diabetes Mellitus * Home home oral medications, * well-controlled A1c of 5.16 March 2024 * BG goal 110-140 * SSI while inpatient #chronic anemia -Acute blood loss anemia in setting of chronic anemia -See above #Hypothyroidism * euthyroid as of recent outpatient TSH * Continue levothyroxine per home DVT Ppx: SCDs Code status: DNR/DNI PCP: Dr. Lan Dispo: Admit for further management and workup Updated patient's at bedside on 10/29, provided updates. confirmed code status of dnr/dni. Plan to continue medications; if patient decompensates- plan to switch over to comfort care. I spent a total of 50 minutes coordinating, documenting, and providing care for this patient excluding time spent in the performance of separately billed services. This included personally reviewing all current laboratories and imaging studies, medical reconciliation, outpatient chart review and discussion with specialists Admission and Anticipated Discharge Date Admission Date: October 27, 2024 Subjective Patient seen and examined at bedside. He is comfortable; not in distress. He is awake, alert oriented x 3. Denies any pain or discomfort. Review of Systems Review of Systems: All systems reviewed & are unremarkable except as noted in Subjective Physical Exam Physical Exam: Vitals and labs reviewed General: comfortable, not in any ditress Cardiac: RRR no rubs gallops or murmurs Lungs: CTA no rhonchi wheezing or rales Abd: S NT ND BS positive Ext: No Edema cyanosis Skin: Warm, Dry Neuro: Alert and answering questions appropriately Psych: calm Results & Data Results & Data Vital Signs (Past 12 Hours) Vital Signs Temp Pulse Resp BP Pulse Ox O2 Del Method 10/31/24 11:05 36.6 C 99 H 18 115/76 92 Room Air 10/31/24 07:25 38.1 C H 102 H 18 116/75 92 Room Air 10/31/24 03:09 37.4 C 108 H 18 119/70 88 L Room Air
[2024-11-01 06:55] LABS: Hematocrit (blood only) 29.6 % (42.0-52.0); Hemoglobin 10.1 g/dl (14.0-18.0); Mean Corpuscular Hemoglobin 30.4 pg (25.0-34.0); Mean Corpuscular Volume 89.2 fL (80.0-100.0); Platelet Count 178 K/uL (130-400); RDW Standard Deviation 43.0 fL (36.4-46.3); Red Blood Count 3.32 M/uL (4.70-6.10); White Blood Count 6.45 K/ul (4.8-10.8)
[2024-11-01 07:15] LABS: Anion Gap 9.0 (3-11); Blood Urea Nitrogen 25.0 mg/dl (6-23); Calcium 8.7 mg/dl (8.6-10.3); Carbon Dioxide 24.0 mmol/L (21-32); Chloride 104.0 mmol/L (98-107); Creatinine Clr Calc Pharmacy 53.7 ml/min; Glucose 93.0 mg/dl (70-99(Fasting)); Potassium 3.5 mmol/L (3.5-5.1); Sodium 137.0 mmol/L (136-145)
[2024-11-01] MEDS: FUROSEMIDE INJ 20 MG/2 ML VIAL IV SCH (08:25)
--- NOTE | 2024-11-01 12:33 | Hospitalist Progress Note ---
Date of Service November 01, 2024 Assessment & Plan (1) Atypical chest pain: Plan: 89 year old male with past medical history significant for CHB s/p dual-chamber pacemaker (implanted 01/10/24), mild-moderate , HTN, HLD, orthostatic hypotension, history of cerebellar hemorrhage s/p surgery, history of traumatic subdural hematoma, ABDI (on CPAP), DM Type II, history of adrenal insufficiency, hypothyroidism, chronic anemia, GERD, prostate cancer s/p radiation, BPH, CKD stage III, mild cognitive impairment, and former smoker who presents with chest pain and confusion. As per , patient reported chest pain yesterday, followed by confusion, given Nitro x 2 with no improvement, then called EMS #NSTEMI -H/O complete heart block s/p PPM; h/o moderate ; follows [facility] -Trop initially 214->879->1528 > 2900 -EKG Atrial-sensed ventricular-paced rhythm, 71 bpm, QTc 506 -D-dimer 2200-> Chest CTA no PE, Mild interstitial pulmonary edema, Coronary artery calcifications, Moderate to severe aortic valve calcification. -Type I NSTEMI -TTE showing EF 30% Plan -Heparin drip stopped overnight on 10/26 due to new RP hematoma -Cardiology recommends conservative management given advanced age and dementia -continue rosuvastatin, metoprolol #RP hematoma #Acute blood loss anemia -CT showing new blood products in RP space, concerning for developing RP hematoma -Hb downtrended from 12 to 10, Plan -He is a poor candidate for surgical or interventional procedures -Monitor Hgb -Transfuse if < 7 #DIDIER Acute UTI Acute urinary retention s/p smart Cr uptrended from 1.09 on 10/25 to 3.48 Urine analysis suggestive of infection given 1 dose of iv lasix on 10/29 with UO of 800cc Renal usg shows distended bladder with bilateral hydronephrosis Creatinine improved with smart placement. Urine cx growing E. faecalis; sensitive to E.Faecalis. Plan to treat for 7 days. on iv lasix 10mg bid. #Altered Mental Status #Actue metabolic encephalopathy- resolved * Head CT showing no acute intracranial process. * Suspect hospital acquired delirium in setting of metabolic encephalopathy from DIDIER/NSTEMI * Continue prn Zyprexa * Avoid Beer's list medications * Delirium precautions and reorientation techniques Mentation appears to be baseline on 10/29 #Hypertensive Urgency -BP is acceptable given his degree of illness #ABDI on room air * CPAP at home- continue HS here #Diabetes Mellitus * Home home oral medications, * well-controlled A1c of 5.16 March 2024 * BG goal 110-140 * SSI while inpatient #chronic anemia -Acute blood loss anemia in setting of chronic anemia -See above #Hypothyroidism * euthyroid as of recent outpatient TSH * Continue levothyroxine per home DVT Ppx: SCDs Code status: DNR/DNI PCP: Dr. Lan Updated patient's at bedside on 10/29, provided updates. confirmed code status of dnr/dni. Plan to continue medications; if patient decompensates- plan to switch over to comfort care. I spent a total of 50 minutes coordinating, documenting, and providing care for this patient excluding time spent in the performance of separately billed services. This included personally reviewing all current laboratories and imaging studies, medical reconciliation, outpatient chart review and discussion with specialists Admission and Anticipated Discharge Date Admission Date: October 27, 2024 Subjective Patient seen and examined at bedside. He is comfortable; not in distress. Denies any complaints at this time. No chest pain, shortness of breath Review of Systems Review of Systems: All systems reviewed & are unremarkable except as noted in Subjective Physical Exam Physical Exam: Constitutional: WD/WN, vitals as above, NAD, sitting up in bed, pleasant, co nversing easily Respiratory: b/l vesicular breath sounds Cardiovascular: RRR, no murmur, no edema Vessels: no JVD or carotid bruit Chest: normal inspection of chest Abdomen: normal bowel sounds, soft, nontender, no hepatosplenomegaly Musculoskeletal: no cyanosis or clubbing, extremities motor strength 5/5 Skin: no rashes, warm and dry normal turgor Neurologic: PERRL, EOMI, accommodation nl, no face palsy, no dysarthria CN's II- XI intact bilaterally and moves all extremities Psychiatric: A+Ox3, euthymic affect Results & Data Results & Data Vital Signs (Past 12 Hours) Vital Signs Temp Pulse Pulse Resp BP Pulse Ox O2 Del Method 11/01/24 11:40 36.8 C 109 H 18 121/74 91 Room Air 11/01/24 11:00 Room Air 11/01/24 07:59 37.1 C 104 H 18 131/81 91 Room Air 11/01/24 06:18 98 H 11/01/24 04:47 36.8 C 96 H 18 132/84 90 Room Air 11/01/24 00:32 36.7 C 102 H 18 123/74 90 Room Air
[2024-11-01] MEDS: AMOXICILLIN 875 MG TAB PO SCH (17:09)
[2024-11-02 08:00] VITALS: PULSE 99
--- NOTE | 2024-11-02 11:10 | Discharge Summary ---
Date of Service November 02, 2024 Admission HPI Per Admitting Provider History obtained from patient's family and records. Limited history from patient secondary to confusion and agitation. Medical history significant for complete heart block status post PPM, moderate , hypertension, orthostatic hypotension as per records, cerebellar hemorrhage status post surgery, history traumatic subdural hematoma, ABDI on CPAP, history of adrenal insufficiency as per records, DM2 on oral medications, hypothyroidism, chronic anemia (baseline hemoglobin of 10), GERD, radiation proctitis as per records, prostate cancer status post radiation, BPH, chronic back pain, mild cognitive impairment as per records, past tobacco abuse. Last confinement January 2024 for third-degree AV block status post PPM. Patient noted to be more confused than usual today by . No slurred speech, facial droop, arm or leg weakness witnessed at home. No new medications. Patient complaining of left-sided chest pain. No relief with nitroglycerin. Patient brought to ER for evaluation. Initial SBP 170s. Patient given IM Zyprexa for agitation. Patient unable to answer questions regarding chest pain, SOB, cough symptoms, abdominal pain. 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 Admission Exam Per Admitting Provider GENERAL: Agitated, disoriented, no respiratory distress SKIN: Pallor, warm HEENT: Partial alopecia, pale palpebral conjunctivae, no ptosis, dry buccal mucosa NECK : Supple, no tenderness CHEST : CTA, no tenderness HEART : RRR, systolic murmur ABDOMEN: Some distention, nontender EXTREMITIES : No LE swelling/tenderness, no other conspicuous deformities noted NEUROLOGIC : Agitated, no facial asymmetry, slightly hard of hearing, gait and stance not assessed Principal Diagnosis #NSTEMI #RP hematoma #Acute blood loss anemia #DIDIER Acute UTI Acute urinary retention s/p smart Discharge Exam Constitutional: WD/WN, vitals as above, NAD, sitting up in bed, pleasant, conversing easily Respiratory: b/l vesicular breath sounds Cardiovascular: RRR, no murmur, no edema Vessels: no JVD or carotid bruit Chest: normal inspection of chest Abdomen: normal bowel sounds, soft, nontender, no hepatosplenomegaly Musculoskeletal: no cyanosis or clubbing, extremities motor strength 5/5 Skin: no rashes, warm and dry normal turgor Neurologic: PERRL, EOMI, accommodation nl, no face palsy, no dysarthria CN's II-XI intact bilaterally and moves all extremities Discharge Data Allergies Allergy/AdvReac Type Severity Reaction Status Date / Time clindamycin Allergy Unknown unknown--per Verified 01/08/24 20:31 [facility] amoxicillin AdvReac Severe JAUNDICE Verified 01/08/24 20:31 clavulanic acid AdvReac Severe JAUNDICE Verified 01/08/24 20:31 dicyclomine [From Bentyl] AdvReac Intermediate dizziness, Verified 01/08/24 20:31 light headedness isosorbide AdvReac Intermediate PAIN IN Verified 01/08/24 20:31 LIMBS DIARRHEA oxycodone AdvReac Intermediate Confusion Verified 01/08/24 20:31 pregabalin [From Lyrica] AdvReac Intermediate Confusion Verified 01/08/24 20:31 Consultations 10/25/24 22:58 ED Decision to Admit Stat 10/26/24 09:04 Consult Cardiology Routine 10/27/24 07:37 Consult Palliative Care Routine 10/29/24 07:57 Consult Nephrology Routine Ordered Studies 10/25/24 22:05 CT angio head w con Stat CT angio neck with con Stat CT head/brain wo con Stat 10/26/24 01:40 CT angio chest PE protocol Stat 10/26/24 03:59 US venous doppler LE BI Routine 10/26/24 19:48 CT Abd and Pelvis [CT abd pelvis wo con] Stat 10/30/24 07:29 US Renal Bladder [US renal/blad retro comp] Routine Hospital Course (1) Atypical chest pain: 89 year old male with past medical history significant for CHB s/p dual-chamber pacemaker (implanted 01/10/24), mild-moderate , HTN, HLD, orthostatic hypotension, history of cerebellar hemorrhage s/p surgery, history of traumatic subdural hematoma, ABDI (on CPAP), DM Type II, history of adrenal insufficiency, hypothyroidism, chronic anemia, GERD, prostate cancer s/p radiation, BPH, CKD stage III, mild cognitive impairment, and former smoker who presents with chest pain and confusion. #NSTEMI -H/O complete heart block s/p PPM; h/o moderate ; follows nap- Naturally Attached Parents Cards -Trop initially 214->879->1528 > 2900 -EKG Atrial-sensed ventricular-paced rhythm, 71 bpm, QTc 506 -D-dimer 2200-> Chest CTA no PE, Mild interstitial pulmonary edema, Coronary artery calcifications, Moderate to severe aortic valve calcification. -Type I NSTEMI -TTE showing EF 30% During the hospitalization, patient was started on heparin drip, rosuvastatin, metoprolol; patient was found to have retroperitoneal hemorrhage; heparin drip was discontinued on 10/26. Cardiology was consulted; they recommended conservative management given his advanced age and dementia. Patient did not have any chest pain during the hospitalization. Patient to follow-up with cardiology as outpatient. #RP hematoma #Acute blood loss anemia -CT showed new blood products in RP space, concerning for developing RP hematoma on 10/26 -Hb downtrended from 12 to 10; remained stable #DIDIER Acute UTI Acute urinary retention s/p smart Cr uptrended from 1.09 on 10/25 to 3.48 Renal usg shows distended bladder with bilateral hydronephrosis Creatinine improved with smart placement. Urine cx growing E. faecalis; sensitive to Amoxicillin. Patient's creatinine trended back to baseline at the time of the discharge. #Altered Mental Status #Actue metabolic encephalopathy- resolved * Head CT showing no acute intracranial process. * Suspect hospital acquired delirium in setting of metabolic encephalopathy from DIDIER/NSTEMI * Continue prn Zyprexa * Avoid Beer's list medications * Delirium precautions and reorientation techniques Mentation appears to be baseline on 10/29 #Hypertensive Urgency -BP is acceptable given his degree of illness #ABDI on room air * CPAP at home- continue HS here Patient was discharged to acute rehab. Patient to undergo trial of void while in rehab and follow-up with urology. He is also to follow-up with cardiology and primary care provider after discharge. Please note the above document was generated using voice recognition software. It may contain grammatical, syntax or spelling errors. Any formal questions or concerns about the content, text or information contained within the body of this dictation should be directly addressed to the provider for clarification Total Time Total Time Spent Total Time Spent (In Minutes): 34 Total Time Includes: Examination of the Patient, Discharge Planning, Medication Reconciliation, Communication With Other Providers and Other Discharge Plan Discharge Items Patient Disposition: Transfer Inpatient Rehab Fac Reason For Visit: CP, AMS Discharge Diagnosis: #NSTEMI #RP hematoma #Acute blood loss anemia #DIDIER Acute UTI Acute urinary retention s/p smart Condition on Discharge: Fair Activity: Resume your previous activity Non-emergency contact: Primary Care Provider Call non-emergency contact if: you have any medication questions and your symptoms worsen Follow-up/Referrals: Jonathan Lan MD [Primary Care Provider] - Diet: Regular Addtl Attending Provider Instructions: You were admitted to the hospital due to heart attack. You were evaluated by cardiology; they recommended that you take aspirin daily, rosuvastatin. Please follow-up with them for further management. You are also treated for UTI during the hospitalization, you are prescribed amoxicillin to be taken twice a day for 4 more days. Smart catheter was placed due to urinary tract infection. Please have trial of void in 3 days. Please follow-up with urology if the trial of void is unsuccessful. Pending Studies at Discharge: No Stand-Alone Forms: [facility] Skilled Items Patient informed of condition?: Yes DNR: Yes Discharge Level of Care: Acute rehab Communicable Disease: No Discharge Prognosis: Stable Lines: None Urinary Catheter: Yes Medications and DC Order Prescriptions: New amoxicillin 875 mg Tablet 875 mg PO Q12H 4 Days Qty: 8 0RF aspirin 81 mg tablet 81 mg PO DAILY Qty: 30 0RF Continued finasteride 5 mg tablet 5 mg PO QAM levothyroxine 75 mcg Tablet 75 mcg PO DAILYBB tamsulosin 0.4 mg Capsule 0.4 mg PO HS nitroglycerin 0.4 mg Tablet, Sublingual 0.4 mg sublingual Q5W PRN (Reason: Chest Pain) cholecalciferol (vitamin D3) [Vitamin D3] 1,000 unit Tablet 1,000 unit PO QAM omeprazole 20 mg Tablet,Delayed Release (Dr/Ec) 20 mg PO QAM acetaminophen 500 mg Tablet 500 mg PO Q8 PRN (Reason: Fever >38C Or Pain, mild) rosuvastatin 10 mg Tablet 10 mg PO HS duloxetine 60 mg Capsule, Delayed Rel Sprinkle 60 mg PO QAM meclizine 25 mg tablet 25 mg PO TID PRN (Reason: DIZZY) metoprolol succinate 25 mg tablet extended release 24 hr 25 mg PO AMHS 27 mg iron- 0.8 mg Tablet 1 tab PO QAM furosemide 20 mg tablet 20 mg PO [id number] Rx Instructions: sunday/sunday/sunday cyanocobalamin (vitamin B-12) [Vitamin B-12] 1,000 mcg Tablet 1,000 mcg PO QAM Discharge Orders: Discharge Order (Routine); Ordered 11/02/24 Ordered By: Toney Hernandez Admission Data Admit Date/Time: 10/27/24 10:16 Attending Provider: Toney Hernandez Admit Provider: Adarsh Orozco Primary Care Provider: Jonathan Lan Other Providers: Gamal Gonzalez; Manolo Hines; Mell Street; Kasey Villa; Amanda Brody; [facility]
[2024-11-02 11:44] VITALS: RESP 18; TEMP 98.8; O2SAT 90
[2024-11-02 16:19] VITALS: BP 103/69
--- NOTE | 2024-11-03 06:26 | Electrocardiogram Report ---
Test Reason : Blood Pressure : */* mmHG Vent. Rate : 113 BPM Atrial Rate : 113 BPM P-R Int : 134 ms QRS Dur : 146 ms QT Int : 374 ms P-R-T Axes : 72 -2 118 degrees QTcB Int : 513 ms Atrial-sensed ventricular-paced rhythm Abnormal ECG When compared with ECG of 26-Oct-2024 10:40, Vent. rate has increased by 5 bpm Confirmed by Aiden Griffin ([id number]) on 11/03/2024 6:26:14 AM Referred By: REFERRED SELF Confirmed By: Aiden Griffin
[2024-11-03] MEDS ORDERED: FUROSEMIDE 20 MG TAB PO SCH (09:00)
== END 2024-11-02 16:19 | DRG 280 ==
LOC: 2S 21:55 → ED 21:55 → 2S 23:41 → SUATTDRO 10-27 10:16

== ENCOUNTER 2025-01-15 16:18 | Inpatient (IN) ==
[2025-01-15] MEDS: OPTIRAY 320 125ml IV ONE (16:43)
[2025-01-15 16:54] LABS: Base Excess VBG 4.6 mEq/L; HCO3 VBG 28 mmol/L; Oxygen Saturation VBG < 60.0 %; PCO2 VBG 38 mmHg (38-50); PO2 VBG < 20 mmHg; pH VBG 7.48 (7.36-7.41)
[2025-01-15 16:59] LABS: Hematocrit (blood only) 35.0 % (42.0-52.0); Hemoglobin 12.2 g/dL (14.0-18.0); Immature Granulocytes # (auto) 0.02 K/uL (0.01-0.20); Immature Granulocytes % (auto) 0.4 %; Mean Corpuscular Hemoglobin 31.0 pg (25.0-34.0); Mean Corpuscular Volume 89.1 fL (80.0-100.0); Platelet Count 180 K/uL (130-400); RDW Standard Deviation 43.8 fL (36.4-46.3); Red Blood Count 3.93 M/uL (4.70-6.10); White Blood Count 5.31 K/ul (4.8-10.8)
[2025-01-15] MEDS: LORazepam 1 MG/1 ML SYR ED Inj Use IV STA (17:11)
--- NOTE | 2025-01-15 17:14 | CT Scan Report ---
CT head without contrast History: AMS Comparison: 10/25/2024 Technique: Using multidetector thin collimation helical acquisition technique, axial, coronal and sagittal CT images from the skull base to the vertex were obtained without intravenous contrast. Dose reduction techniques were achieved by using automatic exposure control and/or adjustment of mA and/or kV according to patient size and/or use of iterative reconstruction technique. Findings: No intracranial hemorrhage, mass-effect, or midline shift. The ventricles are proportionate to the cerebral sulci. The kulkarni to white matter differentiation of the cerebral hemispheres is preserved. The basal cisterns are patent. Encephalomalacia of the left cerebellar hemisphere. There is moderate cerebral atrophy. Moderate, patchy low-attenuation changes in the white matter, most suggestive of sequelae of chronic small vessel ischemic disease. The visualized paranasal sinuses are clear. Mastoid air cells are clear. Left suboccipital craniectomy change. Impression: No acute intracranial pathology. Electronically signed by He Perdue 01-15-2025 5:14 PM
[2025-01-15 17:17] LABS: Appearance Urine Clear (Clear); Bacteria Urine Automated 2+ (None Seen); Cast Urine Automated 0-2 /lpf (0-2); Epithelial Cell Urine Auto 0-2 /hpf (0-2); Glucose Urine UA Negative (Negative); WBC Urine Automated >50 /hpf (0-5)
--- NOTE | 2025-01-15 17:18 | Emergency Department Note ---
Impression & Plan Acute encephalopathy, Complicated UTI (urinary tract infection), Elevated lactic acid level, Chronic anemia ED Provider Note NAME: SHANTAL DIAZ AGE: 89 SEX: M : 1935 ARRIVES VIA: Walk-In INFORMANT: Patient, his ED PROVIDER(S): Hi Barnett DO CHIEF COMPLAINT: acute confusion HPI: This is an 89-year-old male with the PMHx of urinary retention s/p urethral catheter, lumbar degenerative disc disease, prostate cancer, hypertension, CAD, AV block, and neurocognitive dysfunction presenting to [facility] for further evaluation of acute onset of confusion. Patient is accompanied by his who provide additional history. The patient is altered with significant confusion and inattention. Patient unable to provide reliable history review of systems. notes that symptoms started abruptly at 4 PM. He was reportedly his normal self throughout the day and then became acutely confused. He was not making any sense. Patient was difficult to handle per his . He has also seemed to be weak and having trouble with ambulation. She states that urinary catheter was exchanged today but he was unable to void spontaneously. Urethral catheter was replaced. They deny fever or chills. No cough or congestion. Denies chest pain or palpitations. No shortness of breath. They deny abdominal pain, nausea and vomiting. No urinary complaints. No recent changes in bowel movements. Patient denies recent changes in medications or OTC supplements. Patient offers no other complaints, today. ADDITIONAL HISTORY OBTAINED: Per HPI Chronic Medical/Social Conditions Affecting Care: Per HPI PAST MEDICAL HISTORY: See Below PAST SURGICAL HISTORY: See Below FAMILY HISTORY: See Below SOCIAL HISTORY: See Below HOME MEDICATIONS: See Below ALLERGIES: See Below VITALS: See Below PHYSICAL EXAMINATION: GENERAL: Sitting up in bed, alert, well appearing, well nourished, no distress, non-toxic EYE EXAM: normal conjunctiva. PERRL and EOM's grossly intact. OROPHARYNX: no exudate, no erythema, lips, buccal mucosa, and tongue normal and mucous membranes are moist NECK: supple, no nuchal rigidity, no adenopathy, non-tender LUNGS: Clear to auscultation. Normal chest wall mechanics HEART: no murmurs, regular rate, regular rhythm ABDOMEN: abdomen soft, non-tender, no masses, no rebound or guarding. BACK: Back is symmetrical on inspection and there is no deformity, no midline tenderness, no CVA tenderness. SKIN: no rashes and no bruising UPPER EXTREMITIES: upper extremities are grossly normal. LOWER EXTREMITIES: No pitting edema. NEURO EXAM: Normal sensorium, GCS 14 with confusion and inattention, slightly agitated, no gross weakness of arms, no gross weakness of legs. No drift. Finger to nose intact. Gross sensation intact. NIHSS 1. MEDICAL DECISION MAKING: Differential diagnoses includes but not limited to CVA, intracranial hemorrhage, acute encephalopathy, complicated UTI, metabolic encephalopathy, electrolyte derangement, dehydration In summary, this is an 89 year old male who presented with acute encephalopathy. Differential as above. Nursing notes and pertinent past medical records reviewed. Vital signs reviewed and the patient is mildly hypertensive but otherwise afebrile and hemodynamically stable. History and presentation revealed recent placement of a urethral catheter with exchange. While he does have stroke risk factors, patient has a nonfocal exam and his symptoms are more consistent with acute encephalopathy. Physical examination revealed as above. As a result of my initial evaluation, IV access was established and the patient was placed on CCRM. Therapeutics ordered include IVFR and IV Ativan as the patient is slightly agitated and getting out of bed. Significant risk to himself as well as others. Will collect urine specimen as this was recently exchanged today. The patient was made a stroke alert in triage by nursing staff. I do not feel the patient needs evaluation for stroke as his symptoms are consistent with an acute encephalopathy rather than focal neurologic deficits to suggest LVO. Diagnostics interpreted by me include EKG and cardiac monitoring as listed below: -Cardiac Monitoring: An order was placed for continuous cardiac monitoring. The monitor shows a rate of 60-80s with regular rhythm. -ECG: Atrial sensed ventricular paced rhythm at [address] segment changes to suggest STEMI. Intervals are within normal limits. Patient completed laboratory studies and imaging. Results independently interpreted by me are mild anemia that stable as compared to prior. No significant leukocytosis or elevation in procalcitonin. Urinalysis does appear infected and I do believe this is consistent with the patient's symptoms today. Likely catheter associated UTI. Will manage with IV ceftriaxone. There is no significant electrolyte derangements or significant kidney dysfunction from baseline. No changes in LFTs. No significant acidosis or CO2 retention on VBG. Troponin was normal. Lactate was elevated. The patient was managed with IV fluid resuscitation and antibiotics. CTH independently interpreted by me reveals no evidence of ICH. No significant hydrocephalus. No major skull fractures. CTH does not demonstrate findings to suggest an etiology of the patient's symptoms or presentation, today. CTA of the head and neck independently interpreted by me with me as negative for acute LVO . Patient symptoms are more related to acute encephalopathy secondary to a complicated UTI rather than stroke. Patient requires admission for this. Ultimately, the decision was made to admit the patient for acute encephalopathy secondary to complicated UTI complicated by elevated lactate. I discussed the case with the hospitalist service via telephone/TigerText and they are agreeable to admit the patient to their services. Based on the above, including the patient's age, coexisting illnesses, labs, imaging, and exam findings the decision to treat as an inpatient. I discussed the patient with the hospitalist team who recommended admission to their services. They received the medications, treatments, interventions indicated above and their condition remained guarded. I discussed my findings with the patient and their family and they understand and agree with the treatment plan. All patient / family questions were answered to their satisfaction. Consults/Care Managements Discussions: Per MDM ER treatment provided: See above Procedures: None Critical Care: None The chart was completed utilizing [employer] Speech voice recognition software. Grammatical errors, random word insertions, pronoun errors, and incomplete sentences are an occasional consequence of this system due to software limitations, ambient noise, and hardware issues. Any formal questions or concerns about the content, text, or information contained within the body of this dictation should be directly addressed to the physician for clarification. Past Med/Surg History Problem List (Updated 01/17/25 @ 04:04 by Hi Barnett DO) Chronic anemia (Acute) Elevated lactic acid level (Acute) Complicated UTI (urinary tract infection) (Acute) Acute encephalopathy (Acute) Encephalopathy DIDIER (acute kidney injury) Palliative care by specialist Counseling regarding goals of care Poor appetite Lethargy Delirium of mixed origin Coronary artery calcification Cardiac pacemaker Atypical chest pain Heart block AV third degree (Acute) Drug-induced bradycardia Adverse effects of medication Left bundle branch block (LBBB) (Acute) Abnormal LFTs (Acute 12/26/12) Bronchitis (Acute) Elevated liver function tests (Acute) HTN (hypertension) (Acute 12/26/12) Hyperbilirubinemia (Acute) Post-operative state (Acute) Post-operative state Dysphagia Hematochezia Lumbar stenosis with neurogenic claudication Medical History Cardiomyopathy Recurrent falls Dysphagia BPH (benign prostatic hyperplasia) History of shingles over 10 yrs ago History of prostate cancer RADIATION ONLY 2010 Dysphagia Anxiety and depression Spinal stenosis Osteoarthritis Degenerative disc disease Chronic back pain Chronic kidney disease, stage 3 follows with [facility] GERD (gastroesophageal reflux disease) History of esophageal dilatation Hypothyroidism Radiation proctitis Hearing deficit Stroke 2011--no deficits, no neurologist Hyperlipidemia Cardiac murmur FOLLOWS WITH DR. HITCHCOCK Sleep apnea cpap Surgical History History of craniotomy X 2 (AT [facility])---d/t hemorrhagic stroke and for a pseudomeningocele repair History of anesthesia reaction woke up paranoid and last for 3 days after both brain surgeries History of total left hip replacement History of total right hip replacement History of prostate biopsy History of colonoscopy History of esophagogastroduodenoscopy (EGD) History of appendectomy History of phacoemulsification of cataract of both eyes with intraocular lens implantation bilat History of tooth extraction all teeth Family History Mother Family history of diabetes mellitus Other No family history of adverse response to anesthesia Social History Smoking Status: Unknown if ever smoked Tobacco Type: Cigarettes Second Hand Exposure: No; Do You Dip or Chew Tobacco: No; Hx Alcohol Use: No Hx Substance Use: No Preferred Language: Vietnamese Communication Ability: Effective Traffic Chief Required: No Beliefs That Will Affect Care: None Current Living Situation: Spouse Feels Safe at Home: Yes Assistive Devices: Cane and Walker Allergies Allergies Allergy/AdvReac Type Severity Reaction Status Date / Time clindamycin Allergy Unknown unknown--per Verified 01/15/25 16:55 [facility] amoxicillin AdvReac Severe JAUNDICE Verified 01/15/25 16:55 clavulanic acid AdvReac Severe JAUNDICE Verified 01/15/25 16:55 dicyclomine [From Bentyl] AdvReac Intermediate dizziness, Verified 01/15/25 16:55 light headedness gabapentin AdvReac Intermediate PSYCH Verified 01/15/25 16:55 COMPLICATIONS isosorbide AdvReac Intermediate PAIN IN Verified 01/15/25 16:55 LIMBS/DIARRHEA/FATIGUE oxycodone AdvReac Intermediate Confusion Verified 01/15/25 16:55 pregabalin [From Lyrica] AdvReac Intermediate Confusion Verified 01/15/25 16:55 Home Meds Home Medications Medication Instructions Recorded Confirmed cholecalciferol (vitamin D3) 25 1,000 unit PO QAM 08/21/18 01/15/25 mcg (1,000 unit) tablet (Vitamin D3) levothyroxine 75 mcg tablet 75 mcg PO DAILYBB 08/21/18 01/15/25 nitroglycerin 0.4 mg sublingual 0.4 mg sublingual Q5W PRN Chest 08/21/18 01/15/25 tablet Pain omeprazole 20 mg tablet,delayed 20 mg PO QAM 08/21/18 01/15/25 release finasteride 5 mg tablet 5 mg PO QAM 10/02/19 01/15/25 duloxetine 60 mg capsule,delayed 60 mg PO QAM 02/23/22 01/15/25 release sprinkle rosuvastatin 10 mg tablet 10 mg PO HS 02/23/22 01/15/25 furosemide 20 mg tablet 20 mg PO 3XWK 10/25/24 01/15/25 metoprolol succinate 25 mg 25 mg PO AMHS 10/25/24 01/15/25 tablet,extended release 24 hr midodrine 2.5 mg tablet 2.5 mg PO TID 12/31/24 01/15/25 cyanocobalamin (vitamin B-12) 100 100 mcg PO DAILY 01/15/25 01/15/25 mcg tablet (Vitamin B-12) menthol 7.5 % topical patch 1 patch topical DIRECTED PRN 01/15/25 01/15/25 AFFECTED AREA/PAIN Previous Rx's Medication Instructions Recorded aspirin 81 mg tablet 81 mg PO DAILY #30 tabs 11/02/24 Results & Data (ED) Vital Signs Vital Signs - 24 hr 01/15/25 16:37 01/15/25 16:43 01/15/25 16:47 Temperature 36.3 C L Temperature Source Temporal Artery Scan Pulse Rate 81 63 Pulse Rate [Apical] Pulse Rhythm [Apical] Pulse Strength [Apical] Respiratory Rate 22 Respiratory Effort / Characteristics Respiratory Depth Normal Respiratory Pattern Blood Pressure 160/86 H Blood Pressure [Right Arm] Blood Pressure Mean 110 Blood Pressure Mean [Right Arm] Blood Pressure Position [Right Arm] Pulse Oximetry 96 94 Oxygen Delivery Method Room Air Room Air Oxygen Flow Rate Sepsis Recent Fever Within 48 Hours No Sepsis New/Unexplained Change in Mental Status Yes Sepsis Action Taken by Nursing Physician Notified 01/15/25 16:47 01/15/25 17:30 01/15/25 18:00 Temperature 36.5 C Temperature Source Oral Pulse Rate Pulse Rate [Apical] 65 73 75 Pulse Rhythm [Apical] Regular Regular Pulse Strength [Apical] Normal Normal Respiratory Rate 21 15 19 Respiratory Effort / Characteristics Non-Labored Spontaneous Non-Labored Spontaneous Non-Labored Spontaneous Respiratory Depth Normal Normal Normal Respiratory Pattern Regular Blood Pressure Blood Pressure [Right Arm] 172/92 H 172/103 H 158/95 H Blood Pressure Mean Blood Pressure Mean [Right Arm] 118 126 116 Blood Pressure Position [Right Arm] Sitting Lying Semi-fowlers Pulse Oximetry 100 96 100 Oxygen Delivery Method Room Air Nasal Cannula Nasal Cannula Oxygen Flow Rate 3 3 Sepsis Recent Fever Within 48 Hours Sepsis New/Unexplained Change in Mental Status Sepsis Action Taken by Nursing 01/15/25 18:57 01/15/25 19:30 01/15/25 20:00 Temperature Temperature Source Pulse Rate 75 Pulse Rate [Apical] 78 73 Pulse Rhythm [Apical] Pulse Strength [Apical] Respiratory Rate 18 14 13 Respiratory Effort / Characteristics Non-Labored Spontaneous Non-Labored Spontaneous Respiratory Depth Normal Normal Respiratory Pattern Regular Blood Pressure 158/95 H Blood Pressure [Right Arm] 154/92 H 120/88 Blood Pressure Mean 116 Blood Pressure Mean [Right Arm] 112 98 Blood Pressure Position [Right Arm] Pulse Oximetry 95 95 93 Oxygen Delivery Method Room Air Room Air Room Air Oxygen Flow Rate Sepsis Recent Fever Within 48 Hours Sepsis New/Unexplained Change in Mental Status Sepsis Action Taken by Nursing 01/15/25 20:30 Temperature Temperature Source Pulse Rate 79 Pulse Rate [Apical] Pulse Rhythm [Apical] Pulse Strength [Apical] Respiratory Rate 14 Respiratory Effort / Characteristics Respiratory Depth Respiratory Pattern Blood Pressure 166/94 H Blood Pressure [Right Arm] Blood Pressure Mean 109 Blood Pressure Mean [Right Arm] Blood Pressure Position [Right Arm] Pulse Oximetry 96 Oxygen Delivery Method Room Air Oxygen Flow Rate Sepsis Recent Fever Within 48 Hours Sepsis New/Unexplained Change in Mental Status Sepsis Action Taken by Nursing Laboratory Data 01/16/25 05:52 12/12/25 05:52 Lab Results 01/15/25 01/15/25 01/15/25 Range/Units 16:40 16:47 16:49 WBC 5.31 (4.8-10.8) K/ul RBC 3.93 L (4.70-6.10) M/uL Hgb 12.2 L (14.0-18.0) g/dL POC Hgb 12.6 L (14.0-18.0) g/dl Hct 35.0 L (42.0-52.0) % POC Hct 37 L (42-52) % MCV 89.1 (80.0-100.0) fL MCH 31.0 (25.0-34.0) pg MCHC 34.9 (32.0-36.0) g/dL RDW Std Deviation 43.8 (36.4-46.3) fL RDW Coeff of Darrick 13.5 (11.5-14.5) % Plt Count 180 (130-400) K/uL MPV 11.0 (9.4-12.4) fL Immature Gran % (Auto) 0.4 % Neut % (Auto) 55.0 % Lymph % (Auto) 27.3 % [place] % (Auto) 13.7 % Eos % (Auto) 2.8 % Baso % (Auto) 0.8 % Neut # (Auto) 2.92 (1.40-6.50) K/uL Lymph # (Auto) 1.45 (1.20-3.40) K/uL [place] # (Auto) 0.73 H (0.11-0.59) K/uL Eos # (Auto) 0.15 (0.00-0.50) K/uL Baso # (Auto) 0.04 (0.00-0.20) K/uL Immature Gran # (Auto) 0.02 (0.01-0.20) K/uL PT 10.5 (9.0-12.0) Seconds INR 1.0 (0.9-1.1) APTT 26 (21-31) Seconds PTT Ratio 1.0 VBG pH 7.48 H (7.36-7.41) VBG pCO2 38 (38-50) mmHg VBG pO2 < 20 mmHg VBG HCO3 28 mmol/L VBG O2 Saturation < 60.0 % VBG Base Excess 4.6 mEq/L POC Sodium 138 (135-144) mmol/L Sodium 136 (136-145) mmol/L POC Potassium 4.5 (3.3-5.0) mmol/L Potassium 4.4 (3.5-5.1) mmol/L POC Chloride 100 L (101-112) mmol/L Chloride 100 (98-107) mmol/L Carbon Dioxide 25 (21-32) mmol/L POC Total CO2 22 L (24-31) mmol/L Anion Gap 11 (3-11) POC Anion Gap 21.0 (16-25) mmol/L POC BUN 18 (7-18) mg/dl BUN 18 (6-23) mg/dl Creatinine 1.12 (0.6-1.4) mg/dl POC Creatinine 1.2 (0.6-1.3) mg/dl Est Cr Clr Drug Dosing Not Reportable eGFR 63.19 BUN/Creatinine Ratio 16.1 (10-20) Glucose 105 H (70-99(Fasting)) mg/dl POC Glucose (other) 101 H (70-99) mg/dl Lactate 3.8 H* (0.4-2.0) mmol/L Calcium 9.9 (8.6-10.3) mg/dl POC Ioniz Calcium Rakel 1.19 (1.12-1.32) mmol/l Magnesium 1.6 L (1.7-2.4) mg/dl Total Bilirubin 0.6 (0.2-1.0) mg/dl AST 20 (13-39) U/L ALT 14 (7-52) U/L Alkaline Phosphatase 83 (34-104) U/L Troponin I High Sens 12.7 (0-20) pg/ml Total Protein 8.1 (6.0-8.3) gm/dl Albumin 3.8 (3.4-5.0) gm/dl Globulin 4.3 H (2.5-4.0) gm/dl Albumin/Globulin Ratio 0.9 (0.9-2) Procalcitonin 0.02 (0-0.5) ng/ml Urine Color Yellow Urine Appearance Clear (Clear) Urine pH 7.5 (4.5-7.5) Ur Specific [place] 1.015 (1.000-1.030) Urine Protein 1+ H (Negative) Urine Glucose (UA) Negative (Negative) Urine Ketones Negative (Negative) Urine Blood Trace H (Negative) Urine Nitrite Negative (Negative) Urine Bilirubin Negative (Negative) Urine Urobilinogen Negative (Negative) Ur Leukocyte Esterase 2+ H (Negative) Urine WBC (Auto) >50 H (0-5) /hpf Urine RBC (Auto) 3-5 H (0-2) /hpf U Hyaline Cast (Auto) 0-2 (0-2) /lpf U Epithel Cells (Auto) 0-2 (0-2) /hpf Urine Bacteria (Auto) 2+ H (None Seen) Urine Comment Administered Medications Aspirin (Aspirin 81 Mg Ectab) 81 mg PO DAILY [facility] Stop: 02/15/25 08:59 Last Admin: 01/16/25 08:42 Dose: 81 mg Documented By: BECCA Cyanocobalamin (Cyanocobalamin (B-12) 100 Mcg Tablet) 100 mcg PO DAILY [facility] Stop: 02/15/25 08:59 Last Admin: 01/16/25 08:42 Dose: 100 mcg Documented By: BECCA Duloxetine HCl (Duloxetine Hcl 60 Mg Cap) 60 mg PO [facility] Stop: 02/15/25 08:59 Last Admin: 01/16/25 08:42 Dose: 60 mg Documented By: BECCA Finasteride (Finasteride 5 Mg Tab) 5 mg PO [facility] Stop: 02/15/25 08:59 Last Admin: 01/16/25 08:42 Dose: 5 mg Documented By: BECCA Piperacillin Sod/Tazobactam Sod (Zosyn) 4.5 gm in 100 mls @ 25 mls/hr IV Q8H [facility]; Protocol Stop: 01/26/25 03:59 Last Infusion: 01/17/25 00:35 Dose: Infused Documented By: Admin: 01/16/25 20:35 Dose: 25 mls/hr Documented By: Infusion: 01/16/25 17:11 Dose: Infused Documented By: Admin: 01/16/25 12:50 Dose: 25 mls/hr Documented By: Infusion: 01/16/25 07:33 Dose: Infused Documented By: Admin: 01/16/25 03:15 Dose: 25 mls/hr Documented By: [id number] Insulin Aspart (Insulin Aspart Per Unit Charge) [facility] Stop: 02/14/25 23:44 Last Admin: 01/16/25 20:35 Dose: Not Given Documented By: Admin: 01/16/25 17:21 Dose: Not Given Documented By: Admin: 01/16/25 12:49 Dose: Not Given Documented By: Admin: 01/16/25 08:47 Dose: Not Given Documented By: Admin: 01/15/25 23:50 Dose: Not Given Documented By: [id number] Levothyroxine Sodium (Levothyroxine Sodium 75 Mcg Tablet) 75 mcg PO DAILYBB [facility] Stop: 02/15/25 06:29 Last Admin: 01/16/25 05:37 Dose: 75 mcg Documented By: [id number] Metoprolol Succinate (Metoprolol Succ 25mg Ext Rel Tab) 25 mg PO AMHS [facility] Stop: 02/15/25 08:59 Last Admin: 01/16/25 20:33 Dose: 25 mg Documented By: Admin: 01/16/25 08:43 Dose: 25 mg Documented By: BECCA Midodrine (Midodrine Hcl 2.5 Mg Tab) 2.5 mg PO TIDM [facility] Stop: 02/15/25 07:59 Last Admin: 01/16/25 17:36 Dose: 2.5 mg Documented By: Admin: 01/16/25 12:51 Dose: 2.5 mg Documented By: Admin: 01/16/25 08:41 Dose: Not Given Documented By: BECCA Pantoprazole Sodium (Pantoprazole 40 Mg Tab) 40 mg PO QAM [facility] Stop: 02/15/25 08:59 Last Admin: 01/16/25 08:43 Dose: 40 mg Documented By: BECCA Rosuvastatin Calcium (Rosuvastatin Calcium 10 Mg Tab) 10 mg PO HS [facility] Stop: 02/15/25 20:59 Last Admin: 01/16/25 20:33 Dose: 10 mg Documented By: ZO Vitamin D (Cholecalciferol 25 Mcg (1000 Units) Tab) 25 mcg PO QAM [facility] Stop: 02/15/25 08:59 Last Admin: 01/16/25 08:42 Dose: 25 mcg Documented By: BECCA Discontinued Medications Heparin Sodium (Porcine) (Heparin Sod 5,000 Unit/0.5 Ml Vial) 5,000 units SQ Q8 [facility] Stop: 02/15/25 05:59 Last Admin: 01/16/25 05:37 Dose: 5,000 units Documented By: [id number] Parenteral Electrolytes (Plasma-Lyte A Ph 7.4) 1,000 mls @ 999 mls/hr IV .Q1H1M ONE Stop: 01/15/25 18:11 Last Infusion: 01/15/25 19:00 Dose: Infused Documented By: Admin: 01/15/25 17:27 Dose: 999 mls/hr Documented By: ZO(2) Magnesium Sulfate/Dextrose (Magnesium Sulfate / D5w) 1 gm in 100 mls @ 200 mls/hr IV Q30M [facility] Stop: 01/15/25 19:36 Last Infusion: 01/15/25 20:35 Dose: Infused Documented By: Admin: 01/15/25 20:03 Dose: 200 mls/hr Documented By: Infusion: 01/15/25 19:58 Dose: Infused Documented By: Admin: 01/15/25 19:28 Dose: 200 mls/hr Documented By: HARSHA Ceftriaxone Sodium (Rocephin) 1,000 mg in 50 mls @ 100 mls/hr IV NOW STA Stop: 01/15/25 19:06 Last Infusion: 01/15/25 19:15 Dose: Infused Documented By: Admin: 01/15/25 18:45 Dose: 100 mls/hr Documented By: ZO(2) Piperacillin Sod/Tazobactam Sod (Zosyn) 4.5 gm in 100 mls @ 200 mls/hr IV ONE STA; Protocol Stop: 01/15/25 22:05 Last Infusion: 01/15/25 22:26 Dose: Infused Documented By: Admin: 01/15/25 21:56 Dose: 200 mls/hr Documented By: HARSHA Ioversol (Optiray 320 125ml) 115 ml IV ONCE ONE Stop: 01/15/25 16:43 Last Admin: 01/15/25 16:43 Dose: 115 ml Documented By: MELIDA Lorazepam (Lorazepam 1 Mg/1 Ml Syr Ed Inj Use) 1 mg IV ONE STA Stop: 01/15/25 17:09 Last Admin: 01/15/25 17:11 Dose: 1 mg Documented By: ZO(2) Imaging Data Radiologist's Impression: Head CT 01/15/25 16:39 CT head without contrast History: ZO Comparison: 10/25/2024 Technique: Using multidetector thin collimation helical acquisition technique, axial, coronal and sagittal CT images from the skull base to the vertex were obtained without intravenous contrast. Dose reduction techniques were achieved by using automatic exposure control and/or adjustment of mA and/or kV according to patient size and/or use of iterative reconstruction technique. Findings: No intracranial hemorrhage, mass-effect, or midline shift. The ventricles are proportionate to the cerebral sulci. The kulkarni to white matter differentiation of the cerebral hemispheres is preserved. The basal cisterns are patent. Encephalomalacia of the left cerebellar hemisphere. There is moderate cerebral atrophy. Moderate, patchy low-attenuation changes in the white matter, most suggestive of sequelae of chronic small vessel ischemic disease. The visualized paranasal sinuses are clear. Mastoid air cells are clear. Left suboccipital craniectomy change. Impression: No acute intracranial pathology. Electronically signed by He Perdue 01-15-2025 5:14 PM Head CTA 01/15/25 16:39 Technique: Axial computed tomography images were obtained of the brain after the administration of intravenous contrast according to the CT angiogram protocol Comparison is made to the prior CTA dated 10/25/2024 Findings: There is mild calcified plaque within the cavernous and supraclinoid segments of the internal carotid arteries bilaterally, without stenosis There are mild stenoses of the P2 and P3 segments of the posterior cerebral arteries bilaterally. No definite stenosis is seen of the anterior or middle cerebral artery circulations. The basilar artery appears unremarkable Impression: Mild HOGSHEAD FILLER stenoses bilaterally Electronically signed by Dallin Ku 01-15-2025 5:20 PM Neck CTA 01/15/25 16:39 Technique: Axial computed tomography images were obtained of the neck after the administration of intravenous contrast according to the CT angiogram protocol Comparison is made to the prior CTA dated 10/25/2024 Findings: There is an approximately 60% stenosis of the proximal left common carotid artery. There is an approximately 40% stenosis of the proximal right common carotid artery and there is an approximately 50% stenosis of the mid right common carotid artery. There is an unchanged severe stenosis of the right carotid bulb and proximal right internal carotid artery with 80-85% diameter narrowing. No stenosis is seen of the left carotid bulb or left internal carotid artery. No stenosis of the external carotid arteries is seen The vertebral arteries are patent bilaterally with no significant stenosis seen. The visualized thoracic aorta appears unremarkable There is multilevel degenerative disc disease and osteoarthritis of the cervical spine. Impression: 1. Unchanged severe stenosis of the right carotid bulb and proximal right ICA 2. Mild and moderate severity stenoses of the CCA bilaterally ACT 112: Positive. There are findings on this exam that require communication between the performing entity and the patient following Patient Test Result Information Act [place] ACT 112) guidelines. Electronically signed by Dallin Ku 01-15-2025 5:25 PM Chest X-Ray 01/15/25 20:32 Exam(s): XR CXR 1 VIEW EXAM: XR Chest, 1 View CLINICAL HISTORY: Reason for exam: htn urg. TECHNIQUE: Frontal view of the chest. COMPARISON: Chest x-ray 10/28/2024. FINDINGS: Lungs/Pleural space: Previously noted basilar infiltrates have significantly improved, mild residual remains. No focal consolidation, pleural effusion or pneumothorax. Heart: Stable pacemaker and mild cardiomegaly. Mediastinum: Unremarkable. Bones/Soft Tissues: No acute abnormality. IMPRESSION: 1. Previously noted basilar infiltrates have significantly improved, mild residual atelectasis or infiltrate still present, nonspecific, could reflect scarring or mild pneumonia. Electronically signed by: Patricia Lima M.D. 01/15/25 22:45 PM Discharge Plan Visit Data Chief Complaint: Stroke Alert Stated Complaint: CONFUSION ED Provider: Hi Barnett Discharge Problem: Acute encephalopathy, Complicated UTI (urinary tract infection), Elevated lactic acid level, Chronic anemia Patient Disposition: Admitted As Inpatient Condition: Serious Discharge Instructions Interventions: ED Discharge Assessment Last Done: 01/15/25 23:09
[2025-01-15 17:19] LABS: Alanine Aminotransferase 14 U/L (7-52); Albumin Globulin Ratio 0.9 (0.9-2); Albumin Level 3.8 gm/dl (3.4-5.0); Alkaline Phosphatase 83 U/L (34-104); Anion Gap 11 (3-11); Bilirubin,Total 0.6 mg/dl (0.2-1.0); Blood Urea Nitrogen 18 mg/dl (6-23); Calcium 9.9 mg/dl (8.6-10.3); Carbon Dioxide 25 mmol/L (21-32); Chloride 100 mmol/L (98-107); Globulin 4.3 gm/dl (2.5-4.0); Glucose 105 mg/dl (70-99(Fasting)); Magnesium 1.6 mg/dl (1.7-2.4); Potassium 4.4 mmol/L (3.5-5.1); Sodium 136 mmol/L (136-145); Total Protein 8.1 gm/dl (6.0-8.3)
--- NOTE | 2025-01-15 17:26 | CT Scan Report ---
Technique: Axial computed tomography images were obtained of the neck after the administration of intravenous contrast according to the CT angiogram protocol Comparison is made to the prior CTA dated 10/25/2024 Findings: There is an approximately 60% stenosis of the proximal left common carotid artery. There is an approximately 40% stenosis of the proximal right common carotid artery and there is an approximately 50% stenosis of the mid right common carotid artery. There is an unchanged severe stenosis of the right carotid bulb and proximal right internal carotid artery with 80-85% diameter narrowing. No stenosis is seen of the left carotid bulb or left internal carotid artery. No stenosis of the external carotid arteries is seen The vertebral arteries are patent bilaterally with no significant stenosis seen. The visualized thoracic aorta appears unremarkable There is multilevel degenerative disc disease and osteoarthritis of the cervical spine. Impression: 1. Unchanged severe stenosis of the right carotid bulb and proximal right ICA 2. Mild and moderate severity stenoses of the CCA bilaterally ACT 112: Positive. There are findings on this exam that require communication between the performing entity and the patient following Patient Test Result Information Act [place] ACT 112) guidelines. Electronically signed by Dallin Ku 01-15-2025 5:25 PM
[2025-01-15 17:27] LABS: INR 1.0 (0.9-1.1); Partial Thromboplastin Time 26 Seconds (21-31); Prothrombin Time 10.5 Seconds (9.0-12.0)
[2025-01-15] MEDS: PLASMA-LYTE A 1,000 ML IV ONE (17:27)
[2025-01-15] MEDS: cefTRIAXone SODIUM 1,000 MG/50 ML BAG IV STA (18:45)
[2025-01-15] MEDS: MAGNESIUM SULFATE / D5W 1 GM/100 ML BAG IV SCH (19:28)
--- NOTE | 2025-01-15 20:52 | History & Physical Report ---
Date of Service January 15, 2025 Assessment & Plan (1) Encephalopathy: Plan: Assessment and plan below following discussion of case with ED provider and reviewing patient history/pertinent normal/abnormal diagnostic test results. 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 SCDs Re: History spontaneous cerebellar hemorrhage DNR as per prior directives. Patient requesting updates providers. Ms. Bee Jett, contact #[phone]. Text document was generated using [id number] outdoors voice recognition software. It may contain grammatical or spelling errors. Kindly contact undersigned for clarification of any documentation item in question. History of Present Illness Chief Complaint: Confusion as per UTI as per patient Primary Care Provider: Jonathan Lan MD History obtained from patient's family and records. Limited history from patient secondary to confusion and agitation. Medical history significant for chronic systolic heart failure (EF 30 to 35%, TTE 2024), complete heart block status post PPM, valvular heart disease (moderate /mild MR), history of NSTEMI, PVD, hypertension, orthostatic hypotension on midodrine, cerebellar hemorrhage status post surgery, history traumatic subdural hematoma, ABDI on CPAP, history of adrenal insufficiency as per records, DM2 diet-controlled, hypothyroidism, chronic anemia (baseline hemoglobin of 11-12), GERD, radiation proctitis as per records, history of retroperitoneal bleed, prostate cancer status post radiation, BPH, chronic back pain, dementia, past tobacco abuse. Recent confinement October 2024 for NSTEMI. IV heparin discontinued after patient developed retroperitoneal bleed. Conservative management recommended by cardiology for patient's NSTEMI. Patient developed shingles affecting the left side of the face and ear last month. Painful rash resolved with outpatient Valtrex course. Recent ER visit 2 weeks ago for urinary retention. Farerll catheter placed at the ER prior to discharge. Patient complaining of UTI symptoms to his the last few days. Patient more confused than usual. Denies headache, chest pain, SOB. Unsuccessful Farrell catheter [place] [facility] [place]. Achy back pain as per patient. No abdominal pain. No abdominal pain. No hematuria. Patient brought to ER for evaluation. IV ceftriaxone administered at the ER. 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 Allergies Allergy/AdvReac Type Severity Reaction Status Date / Time clindamycin Allergy Unknown unknown--per Verified 01/15/25 16:55 [facility] record amoxicillin AdvReac Severe JAUNDICE Verified 01/15/25 16:55 clavulanic acid AdvReac Severe JAUNDICE Verified 01/15/25 16:55 dicyclomine [From Bentyl] AdvReac Intermediate dizziness, Verified 01/15/25 16:55 light headedness gabapentin AdvReac Intermediate PSYCH Verified 01/15/25 16:55 COMPLICATIONS isosorbide AdvReac Intermediate PAIN IN Verified 01/15/25 16:55 LIMBS/DIARRHEA/FATIGUE oxycodone AdvReac Intermediate Confusion Verified 01/15/25 16:55 pregabalin [From Lyrica] AdvReac Intermediate Confusion Verified 01/15/25 16:55 Home Medications Medication Instructions Recorded Confirmed Type cholecalciferol (vitamin D3) 25 1,000 unit PO QAM 08/21/18 01/15/25 History mcg (1,000 unit) tablet (Vitamin D3) levothyroxine 75 mcg tablet 75 mcg PO DAILYBB 08/21/18 01/15/25 History nitroglycerin 0.4 mg sublingual 0.4 mg sublingual Q5W PRN Chest 08/21/18 01/15/25 History tablet Pain omeprazole 20 mg tablet,delayed 20 mg PO QAM 08/21/18 01/15/25 History release finasteride 5 mg tablet 5 mg PO QAM 10/02/19 01/15/25 History duloxetine 60 mg capsule,delayed 60 mg PO QAM 02/23/22 01/15/25 History release sprinkle rosuvastatin 10 mg tablet 10 mg PO HS 02/23/22 01/15/25 History furosemide 20 mg tablet 20 mg PO 3XWK 10/25/24 01/15/25 History metoprolol succinate 25 mg 25 mg PO AMHS 10/25/24 01/15/25 History tablet,extended release 24 hr aspirin 81 mg tablet 81 mg PO DAILY #30 tabs 11/02/24 01/15/25 Rx midodrine 2.5 mg tablet 2.5 mg PO TID 12/31/24 01/15/25 History cyanocobalamin (vitamin B-12) 100 100 mcg PO DAILY 01/15/25 01/15/25 History mcg tablet (Vitamin B-12) menthol 7.5 % topical patch 1 patch topical DIRECTED PRN 01/15/25 01/15/25 Hi story AFFECTED AREA/PAIN Past Med/Surg History Problem List (Updated 01/16/25 @ 06:24 by Gamal Gonzalez MD) Encephalopathy DIDIER (acute kidney injury) Palliative care by specialist Counseling regarding goals of care Poor appetite Lethargy Delirium of mixed origin Coronary artery calcification Cardiac pacemaker Atypical chest pain Heart block AV third degree (Acute) Drug-induced bradycardia Adverse effects of medication Left bundle branch block (LBBB) (Acute) Abnormal LFTs (Acute 12/26/12) Bronchitis (Acute) Elevated liver function tests (Acute) HTN (hypertension) (Acute 12/26/12) Hyperbilirubinemia (Acute) Post-operative state (Acute) Post-operative state Dysphagia Hematochezia Lumbar stenosis with neurogenic claudication Medical History Cardiomyopathy Recurrent falls Dysphagia BPH (benign prostatic hyperplasia) History of shingles over 10 yrs ago History of prostate cancer RADIATION ONLY 2010 Dysphagia Anxiety and depression Spinal stenosis Osteoarthritis Degenerative disc disease Chronic back pain Chronic kidney disease, stage 3 follows with Lis GERD (gastroesophageal reflux disease) History of esophageal dilatation Hypothyroidism Radiation proctitis Hearing deficit Stroke 2011--no deficits, no neurologist Hyperlipidemia Cardiac murmur FOLLOWS WITH DR. HITCHCOCK Sleep apnea cpap Surgical History History of crani[facility] X 2 (AT [facility])---d/t hemorrhagic stroke and for a pseudomeningocele repair History of anesthesia reaction woke up paranoid and last for 3 days after both brain surgeries History of total left hip replacement History of total right hip replacement History of prostate biopsy History of colonoscopy History of esophagogastroduodenoscopy (EGD) History of appendectomy History of phacoemulsification of cataract of both eyes with intraocular lens implantation bilat History of tooth extraction all teeth Family History Mother Family history of diabetes mellitus Other No family history of adverse response to anesthesia Social History Smoking Status: Unknown if ever smoked Tobacco Type: Cigarettes Second Hand Exposure: No; Do You Dip or Chew Tobacco: No; Hx Alcohol Use: No Hx Substance Use: No Preferred Language: Azeri Communication Ability: Effective 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: No Beliefs That Will Affect Care: None Current Living Situation: Spouse Feels Safe at Home: Yes Assistive Devices: None Review of Systems Review of Systems: Could not be reliably obtained secondary to disorientation Physical Exam Physical Exam: GENERAL: Demented, no respiratory distress SKIN: Pallor, warm HEENT: Partial alopecia, pale palpebral conjunctivae, no ptosis, dry buccal mucosa NECK : Supple, no tenderness CHEST : CTA, no tenderness HEART : RRR, systolic murmur ABDOMEN: Some distention, nontender EXTREMITIES : No LE swelling/tenderness, no other conspicuous deformities noted NEUROLOGIC : Demented, no facial asymmetry, slightly hard of hearing, gait and stance not assessed Results & Data Results & Data Vital Signs (Past 12 Hours) Vital Signs Temp Pulse Pulse Resp BP BP Pulse Ox 01/15/25 20:00 75 13 158/95 H 93 01/15/25 19:30 73 14 120/88 95 01/15/25 18:57 78 18 154/92 H 95 01/15/25 18:00 75 19 158/95 H 100 01/15/25 17:30 73 15 172/103 H 96 01/15/25 16:47 36.5 C 65 21 172/92 H 100 01/15/25 16:47 94 01/15/25 16:43 63 01/15/25 16:37 36.3 C L 81 22 160/86 H 96 O2 Del Method O2 Flow Rate 01/15/25 20:00 Room Air 01/15/25 19:30 Room Air 01/15/25 18:57 Room Air 01/15/25 18:00 Nasal Cannula 3 01/15/25 17:30 Nasal Cannula 3 01/15/25 16:47 Room Air 01/15/25 16:47 Room Air 01/15/25 16:43 01/15/25 16:37 Room Air Laboratory Results Laboratory Results WBC 5.31 K/ul (4.8-10.8) 01/15/25 16:47 RBC 3.93 M/uL (4.70-6.10) L 01/15/25 16:47 Hgb 12.2 g/dL (14.0-18.0) L 01/15/25 16:47 POC Hgb 12.6 g/dl (14.0-18.0) L 01/15/25 16:49 Hct 35.0 % (42.0-52.0) L 01/15/25 16:47 POC Hct 37 % (42-52) L 01/15/25 16:49 MCV 89.1 fL (80.0-100.0) 01/15/25 16:47 MCH 31.0 pg (25.0-34.0) 01/15/25 16:47 MCHC 34.9 g/dL (32.0-36.0) 01/15/25 16:47 RDW Std Deviation 43.8 fL (36.4-46.3) 01/15/25 16:47 RDW Coeff of Darrick 13.5 % (11.5-14.5) 01/15/25 16:47 Plt Count 180 K/uL (130-400) 01/15/25 16:47 MPV 11.0 fL (9.4-12.4) 01/15/25 16:47 Immature Gran % (Auto) 0.4 % 01/15/25 16:47 Neut % (Auto) 55.0 % 01/15/25 16:47 Lymph % (Auto) 27.3 % 01/15/25 16:47 [place] % (Auto) 13.7 % 01/15/25 16:47 Eos % (Auto) 2.8 % 01/15/25 16:47 Baso % (Auto) 0.8 % 01/15/25 16:47 Neut # (Auto) 2.92 K/uL (1.40-6.50) 01/15/25 16:47 Lymph # (Auto) 1.45 K/uL (1.20-3.40) 01/15/25 16:47 [place] # (Auto) 0.73 K/uL (0.11-0.59) H 01/15/25 16:47 Eos # (Auto) 0.15 K/uL (0.00-0.50) 01/15/25 16:47 Baso # (Auto) 0.04 K/uL (0.00-0.20) 01/15/25 16:47 Immature Gran # (Auto) 0.02 K/uL (0.01-0.20) 01/15/25 16:47 PT 10.5 Seconds (9.0-12.0) 01/15/25 16:47 INR 1.0 (0.9-1.1) 01/15/25 16:47 APTT 26 Seconds (21-31) 01/15/25 16:47 PTT Ratio 1.0 01/15/25 16:47 VBG pH 7.48 (7.36-7.41) H 01/15/25 16:40 VBG pCO2 38 mmHg (38-50) 01/15/25 16:40 VBG pO2 < 20 mmHg 01/15/25 16:40 VBG HCO3 28 mmol/L 01/15/25 16:40 VBG O2 Saturation < 60.0 % 01/15/25 16:40 VBG Base Excess 4.6 mEq/L 01/15/25 16:40 POC Sodium 138 mmol/L (135-144) 01/15/25 16:49 Sodium 136 mmol/L (136-145) 01/15/25 16:47 POC Potassium 4.5 mmol/L (3.3-5.0) 01/15/25 16:49 Potassium 4.4 mmol/L (3.5-5.1) 01/15/25 16:47 POC Chloride 100 mmol/L (101-112) L 01/15/25 16:49 Chloride 100 mmol/L (98-107) 01/15/25 16:47 Carbon Dioxide 25 mmol/L (21-32) 01/15/25 16:47 POC Total CO2 22 mmol/L (24-31) L 01/15/25 16:49 Anion Gap 11 (3-11) 01/15/25 16:47 POC Anion Gap 21.0 mmol/L (16-25) 01/15/25 16:49 POC BUN 18 mg/dl (7-18) 01/15/25 16:49 BUN 18 mg/dl (6-23) 01/15/25 16:47 Creatinine 1.12 mg/dl (0.6-1.4) 01/15/25 16:47 POC Creatinine 1.2 mg/dl (0.6-1.3) 01/15/25 16:49 Est Cr Clr Drug Dosing Not Reportable 01/15/25 16:47 eGFR 63.19 01/15/25 16:47 BUN/Creatinine Ratio 16.1 (10-20) 01/15/25 16:47 Glucose 105 mg/dl (70-99(Fasting)) H 01/15/25 16:47 POC Glucose (other) 101 mg/dl (70-99) H 01/15/25 16:49 Lactate 3.8 mmol/L (0.4-2.0) H* 01/15/25 16:47 Calcium 9.9 mg/dl (8.6-10.3) 01/15/25 16:47 POC Ioniz Calcium Rakel 1.19 mmol/l (1.12-1.32) 01/15/25 16:49 Magnesium 1.6 mg/dl (1.7-2.4) L 01/15/25 16:47 Total Bilirubin 0.6 mg/dl (0.2-1.0) 01/15/25 16:47 AST 20 U/L (13-39) 01/15/25 16:47 ALT 14 U/L (7-52) 01/15/25 16:47 Alkaline Phosphatase 83 U/L (34-104) 01/15/25 16:47 Troponin I High Sens 12.7 pg/ml (0-20) 01/15/25 16:47 Total Protein 8.1 gm/dl (6.0-8.3) 01/15/25 16:47 Albumin 3.8 gm/dl (3.4-5.0) 01/15/25 16:47 Globulin 4.3 gm/dl (2.5-4.0) H 01/15/25 16:47 Albumin/Globulin Ratio 0.9 (0.9-2) 01/15/25 16:47 Procalcitonin 0.02 ng/ml (0-0.5) 01/15/25 16:47 Urine Color Yellow 01/15/25 16:47 Urine Appearance Clear (Clear) 01/15/25 16:47 Urine pH 7.5 (4.5-7.5) 01/15/25 16:47 Ur Specific [place] 1.015 (1.000-1.030) 01/15/25 16:47 Urine Protein 1+ (Negative) H 01/15/25 16:47 Urine Glucose (UA) Negative (Negative) 01/15/25 16:47 Urine Ketones Negative (Negative) 01/15/25 16:47 Urine Blood Trace (Negative) H 01/15/25 16:47 Urine Nitrite Negative (Negative) 01/15/25 16:47 Urine Bilirubin Negative (Negative) 01/15/25 16:47 Urine Urobilinogen Negative (Negative) 01/15/25 16:47 Ur Leukocyte Esterase 2+ (Negative) H 01/15/25 16:47 Urine WBC (Auto) >50 /hpf (0-5) H 01/15/25 16:47 Urine RBC (Auto) 3-5 /hpf (0-2) H 01/15/25 16:47 U Hyaline Cast (Auto) 0-2 /lpf (0-2) 01/15/25 16:47 U Epithel Cells (Auto) 0-2 /hpf (0-2) 01/15/25 16:47 Urine Bacteria (Auto) 2+ (None Seen) H 01/15/25 16:47 Urine Comment 01/15/25 16:[address] 01/15/25 16:39 CT head without contrast History: AMS Comparison: 10/25/2024 Technique: Using multidetector thin collimation helical acquisition technique, axial, coronal and sagittal CT images from the skull base to the vertex were obtained without intravenous contrast. Dose reduction techniques were achieved by using automatic exposure control and/or adjustment of mA and/or kV according to patient size and/or use of iterative reconstruction technique. Findings: No intracranial hemorrhage, mass-effect, or midline shift. The ventricles are proportionate to the cerebral sulci. The kulkarni to white matter differentiation of the cerebral hemispheres is preserved. The basal cisterns are patent. Encephalomalacia of the left cerebellar hemisphere. There is moderate cerebral atrophy. Moderate, patchy low-attenuation changes in the white matter, most suggestive of sequelae of chronic small vessel ischemic disease. The visualized paranasal sinuses are clear. Mastoid air cells are clear. Left suboccipital craniectomy change. Impression: No acute intracranial pathology. Electronically signed by He Perdue 01-15-2025 5:14 PM Head CTA 01/15/25 16:39 Technique: Axial computed tomography images were obtained of the brain after the administration of intravenous contrast according to the CT angiogram protocol Comparison is made to the prior CTA dated 10/25/2024 Findings: There is mild calcified plaque within the cavernous and supraclinoid segments of the internal carotid arteries bilaterally, without stenosis There are mild stenoses of the P2 and P3 segments of the posterior cerebral arteries bilaterally. No definite stenosis is seen of the anterior or middle cerebral artery circulations. The basilar artery appears unremarkable Impression: Mild ENERGY CONSERVATION REPRESENTATIVE stenoses bilaterally Electronically signed by Dallin Ku 01-15-2025 5:20 PM Neck CTA 01/15/25 16:39 Technique: Axial computed tomography images were obtained of the neck after the administration of intravenous contrast according to the CT angiogram protocol Comparison is made to the prior CTA dated 10/25/2024 Findings: There is an approximately 60% stenosis of the proximal left common carotid artery. There is an approximately 40% stenosis of the proximal right common carotid artery and there is an approximately 50% stenosis of the mid right common carotid artery. There is an unchanged severe stenosis of the right carotid bulb and proximal right internal carotid artery with 80-85% diameter narrowing. No stenosis is seen of the left carotid bulb or left internal carotid artery. No stenosis of the external carotid arteries is seen The vertebral arteries are patent bilaterally with no significant stenosis seen. The visualized thoracic aorta appears unremarkable There is multilevel degenerative disc disease and osteoarthritis of the cervical spine. Impression: 1. Unchanged severe stenosis of the right carotid bulb and proximal right ICA 2. Mild and moderate severity stenoses of the CCA bilaterally ACT 112: Positive. There are findings on this exam that require communication between the performing entity and the patient following Patient Test Result Information Act [place] ACT 112) guidelines. Electronically signed by Dallin Ku 01-15-2025 5:[address] abdomen pelvis: 1. Possible cystitis, limited due to metal artifact bilateral hip prosthesis. 2. No definite acute findings. 3. Significant limited evaluation due to technique. Diagnostic Findings EKG as per my interpretation :Rate 65, paced rhythm
[2025-01-15] MEDS: PIPERACILLIN/TAZOBACTAM 4.5 GM/100 ML BAG IV STA (21:56)
[2025-01-15] MEDS ORDERED: HYDROmorphone INJ 0.5 MG/0.5 ML SYR IV PRN (22:44)
[2025-01-15] MEDS ORDERED: PROMETHAZINE 6.25 MG/50.25 ML BAG IV PRN (22:44)
--- NOTE | 2025-01-15 22:46 | XRay Report ---
Exam(s): XR CXR 1 VIEW EXAM: XR Chest, 1 View CLINICAL HISTORY: Reason for exam: htn urg. TECHNIQUE: Frontal view of the chest. COMPARISON: Chest x-ray 10/28/2024. FINDINGS: Lungs/Pleural space: Previously noted basilar infiltrates have significantly improved, mild residual remains. No focal consolidation, pleural effusion or pneumothorax. Heart: Stable pacemaker and mild cardiomegaly. Mediastinum: Unremarkable. Bones/Soft Tissues: No acute abnormality. IMPRESSION: 1. Previously noted basilar infiltrates have significantly improved, mild residual atelectasis or infiltrate still present, nonspecific, could reflect scarring or mild pneumonia. Electronically signed by: Patricia Lima M.D. 01/15/25 22:45 PM
--- NOTE | 2025-01-15 23:22 | CT Scan Report ---
Exam(s): CT ABDOMEN + PELVIS Without Contrast EXAM: CT Abdomen and Pelvis Without Intravenous Contrast CLINICAL HISTORY: Reason for exam: back pain, uti. TECHNIQUE: Axial computed tomography images of the abdomen and pelvis without intravenous contrast. CTDI is 26.52 mGy and DLP is 1386.79 mGy-cm. Automated exposure control was utilized for the study. A dose lowering technique was utilized adhering to the principles of ALARA. Severe metal artifact from bilateral hip prosthesis, moderate breathing/motion artifact, bilateral arms in the field of view. COMPARISON: CT abdomen pelvis 10/26/2024. FINDINGS: Lung bases: Grossly clear. Liver: Unremarkable. Gallbladder and bile ducts: Normal gallbladder. No ductal dilation. Pancreas: No ductal dilation, or acute pancreatitis. Spleen: Unremarkable. Adrenals: Unremarkable. Kidneys and ureters: No hydronephrosis. Previously noted perinephric edema has resolved. Stomach and bowel: Diverticulosis without acute diverticulitis. No obstruction. Appendix: No acute appendicitis. Intraperitoneal space: No free air or fluid. Bones/joints: Bilateral hip prosthesis with metal artifact. No acute fracture. Soft tissues: Unremarkable. Previously noted right retroperitoneal edema has resolved. Vasculature: Ectasia and atherosclerosis. No aortic aneurysm. Lymph nodes: No enlarged lymph nodes. Bladder: Low thickening, though collapsed by a Farrell, and metal artifact limiting evaluation. Reproductive: Unremarkable as visualized. IMPRESSION: 1. Possible cystitis, limited due to metal artifact bilateral hip prosthesis. 2. No definite acute findings. 3. Significant limited evaluation due to technique. Electronically signed by: Patricia Lima M.D. 01/15/25 23:22 PM
[2025-01-15] MEDS ORDERED: DEXTROSE 50% 50 ML SYRINGE IV PRN (23:42)
[2025-01-15] MEDS ORDERED: GLUCOSE 10 TAB/TUBE PO PRN (23:42)
[2025-01-15] MEDS ORDERED: GLUCAGON FOR INJ 1 MG VIAL SQ PRN (23:42)
[2025-01-15] MEDS ORDERED: CARBOHYDRATES FOR HYPOGLYCEMIA PO PRN (23:42)
[2025-01-15] MEDS ORDERED: GLUCOSE 40% GEL 15 GM TUBE PO PRN (23:42)
[2025-01-15] MEDS: INSULIN ASPART PER UNIT CHARGE SC SCH (23:50)
[2025-01-16] MEDS: PIPERACILLIN/TAZOBACTAM 4.5 GM/100 ML BAG IV SCH (03:15)
[2025-01-16] MEDS: LEVOTHYROXINE SODIUM 75 MCG TABLET PO SCH (05:37)
[2025-01-16] MEDS: HEPARIN SOD 5,000 UNIT/0.5 ML VIAL SQ SCH (05:37)
[2025-01-16 06:13] LABS: Hematocrit (blood only) 34.0 % (42.0-52.0); Hemoglobin 11.9 g/dL (14.0-18.0); Immature Granulocytes # (auto) 0.02 K/uL (0.01-0.20); Immature Granulocytes % (auto) 0.4 %; Mean Corpuscular Hemoglobin 31.1 pg (25.0-34.0); Mean Corpuscular Volume 88.8 fL (80.0-100.0); Platelet Count 153 K/uL (130-400); RDW Standard Deviation 43.8 fL (36.4-46.3); Red Blood Count 3.83 M/uL (4.70-6.10); White Blood Count 5.11 K/ul (4.8-10.8)
[2025-01-16 06:30] LABS: Anion Gap 8.0 (3-11); Blood Urea Nitrogen 13.0 mg/dl (6-23); Calcium 9.3 mg/dl (8.6-10.3); Carbon Dioxide 29.0 mmol/L (21-32); Chloride 98.0 mmol/L (98-107); Creatinine Clr Calc Pharmacy 51.1 ml/min; Glucose 91.0 mg/dl (70-99(Fasting)); Magnesium 2.0 mg/dl (1.7-2.4); Potassium 4.0 mmol/L (3.5-5.1); Sodium 135.0 mmol/L (136-145)
[2025-01-16] MEDS: MIDODRINE HCL 2.5 MG TAB PO SCH (08:41)
[2025-01-16] MEDS: FINASTERIDE 5 MG TAB PO SCH (08:42)
[2025-01-16] MEDS: CYANOCOBALAMIN (B-12) 100 MCG TABLET PO SCH (08:42)
[2025-01-16] MEDS: CHOLECALCIFEROL 25 MCG (1000 UNITS) TAB PO SCH (08:42)
[2025-01-16] MEDS: ASPIRIN 81 MG ECTAB PO SCH (08:42)
[2025-01-16] MEDS: METOPROLOL SUCC 25MG EXT REL TAB PO SCH (08:43)
--- NOTE | 2025-01-16 09:56 | Electrocardiogram Report ---
Test Reason : Blood Pressure : */* mmHG Vent. Rate : 65 BPM Atrial Rate : 65 BPM P-R Int : 162 ms QRS Dur : 138 ms QT Int : 506 ms P-R-T Axes : 79 79 68 degrees QTcB Int : 526 ms Atrial-sensed ventricular-paced rhythm Abnormal ECG When compared with ECG of 28-Oct-2024 16:15, Vent. rate has decreased by 48 bpm Confirmed by Estiven Dixon ([id number]) on 01/16/2025 9:55:55 AM Referred By: Confirmed By: Estiven Dixon
--- NOTE | 2025-01-16 12:11 | Hospitalist Progress Note ---
Date of Service January 16, 2025 Assessment & Plan (1) Encephalopathy: Plan: 89 yo M w/ PMH of HFrEF (EF 30 to 35%, TTE 2024), CHB s/p PPM, valvular heart disease (moderate /mild MR), NSTEMI, PVD, HTN, orthostatic hypotension on midodrine, cerebellar hemorrhage s/p surgery, history traumatic subdural hematoma, ABDI on CPAP, history of adrenal insufficiency as per records, DM2 diet-controlled, hypothyroidism, chronic anemia (baseline hemoglobin of 11-12), GERD, radiation proctitis as per records, retroperitoneal bleed (while on heparin for NSTEMI, oct 2024), prostate cancer status post radiation, BPH, chronic back pain, dementia, past tobacco abuse who was recently in ED about 2 wks ago 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 He was having urinary complaints, more confused than usual for last few days BOW MAKER PRODUCTION, had unsuccessful smart cath removal at urology office on the day of arrival. Likely catheter associated UTI Metabolic encephalopathy: Likely secondary to above ISO underlying dementia, CT head w/ no acute findings. stroke ruled out. History of BPH History of prostate cancer status post radiation Patient had Smart catheter placed about 2 weeks ago BOW MAKER PRODUCTION for urinary retention, see above. Follow-up urine culture, continue with Zosyn 01/16 - patient has grown Enterococcus and enteric organisms on review of microbiologic history Exchange Smart catheter if it has not been exchanged, communicated with RN. Patient's mentation seems to have improved back to his baseline Other chronic medical conditions: Continue with/resume home meds as when able. 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 SCDs Re: History spontaneous cerebellar hemorrhage DNR as per prior directives. Text document was generated using [employer] voice recognition software. It may contain grammatical or spelling errors. Kindly contact undersigned for clarification of any documentation item in question. Admission and Anticipated Discharge Date Admission Date: January 15, 2025 Subjective Patient was seen and examined at bedside. Patient was working with physical therapy, alert and oriented x 3, denies pain. Patient reports eating okay and moving bowels okay. Pt denies sore throat, cough, chest pain, abdominal pain. Physical Exam Physical Exam: GENERAL: Demented, no respiratory distress SKIN: Pallor, warm HEENT: Partial alopecia, pale palpebral conjunctivae, no ptosis, moist buccal mucosa NECK : Supple, no tenderness CHEST : CTA, no tenderness HEART : RRR, systolic murmur ABDOMEN: No distention, nontender EXTREMITIES : No LE swelling/tenderness, no other conspicuous deformities noted NEUROLOGIC : Demented, no facial asymmetry, slightly hard of hearing, gait and stance not assessed Results & Data Results & Data Vital Signs (Past 12 Hours) Vital Signs Temp Pulse Pulse Resp BP Pulse Ox O2 Del Method 01/16/25 11:41 36.4 C L 71 19 127/77 94 Room Air 01/16/25 07:47 36.6 C 74 19 143/79 H 96 Room Air 01/16/25 07:36 72 01/16/25 03:38 36.4 C L 77 16 146/86 H 93 Room Air 01/16/25 00:45 71 01/16/25 00:30 78 20 158/88 H 95 Room Air
[2025-01-16] MEDS: ROSUVASTATIN CALCIUM 10 MG TAB PO SCH (20:33)
[2025-01-17 06:26] LABS: Hematocrit (blood only) 34.8 % (42.0-52.0); Hemoglobin 11.9 g/dL (14.0-18.0); Mean Corpuscular Hemoglobin 30.6 pg (25.0-34.0); Mean Corpuscular Volume 89.5 fL (80.0-100.0); Platelet Count 151 K/uL (130-400); RDW Standard Deviation 44.2 fL (36.4-46.3); Red Blood Count 3.89 M/uL (4.70-6.10); White Blood Count 4.12 K/ul (4.8-10.8)
[2025-01-17 06:59] LABS: Anion Gap 8.0 (3-11); Blood Urea Nitrogen 14.0 mg/dl (6-23); Calcium 9.4 mg/dl (8.6-10.3); Carbon Dioxide 29.0 mmol/L (21-32); Chloride 99.0 mmol/L (98-107); Creatinine Clr Calc Pharmacy 45.7 ml/min; Glucose 89.0 mg/dl (70-99(Fasting)); Potassium 4.1 mmol/L (3.5-5.1); Sodium 136.0 mmol/L (136-145)
--- NOTE | 2025-01-17 11:40 | Hospitalist Progress Note ---
Date of Service January 17, 2025 Assessment & Plan (1) Encephalopathy: Plan: 89 yo M w/ PMH of HFrEF (EF 30 to 35%, TTE 2024), CHB s/p PPM, valvular heart disease (moderate /mild MR), NSTEMI, PVD, HTN, orthostatic hypotension on midodrine, cerebellar hemorrhage s/p surgery, history traumatic subdural hematoma, ABDI on CPAP, history of adrenal insufficiency as per records, DM2 diet-controlled, hypothyroidism, chronic anemia (baseline hemoglobin of 11-12), GERD, radiation proctitis as per records, retroperitoneal bleed (while on heparin for NSTEMI, oct 2024), prostate cancer status post radiation, BPH, chronic back pain, dementia, past tobacco abuse who was recently in ED about 2 wks ago 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 He was having urinary complaints, more confused than usual for last few days GRAIN RECEIVER, had unsuccessful smart cath removal at urology office on the day of arrival. Likely catheter associated UTI Metabolic encephalopathy: Likely secondary to above ISO underlying dementia, CT head w/ no acute findings. stroke ruled out. History of BPH History of prostate cancer status post radiation Patient had Smart catheter placed about 2 weeks ago GRAIN RECEIVER for urinary retention, see above. U Cx w/ E faecalis, continue with Zosyn 01/16, PO macrobid on dc to complete 7d Rx. Smart was exchanged at presentation in ED. Patient's mentation seems to have improved back to his baseline Other chronic medical conditions: Continue with/resume home meds as when able. 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 SCDs Re: History spontaneous cerebellar hemorrhage DNR as per prior directives. Patient's was given phone call to give general update. She states that she is overwhelmed and is not able to take care of Bill. Communicated with pillowcase turner for possible need for placement. Patient is stable medically for discharge. Text document was generated using [employer] voice recognition software. It may contain grammatical or spelling errors. Kindly contact undersigned for clarification of any documentation item in question. Admission and Anticipated Discharge Date Admission Date: January 15, 2025 Subjective Patient was seen and examined at bedside. Patient alert and oriented x 3, denies pain. Patient reports eating okay and moving bowels okay. Pt denies sore throat, cough, chest pain, abdominal pain. Per RN no new acute issues. Physical Exam Physical Exam: GENERAL: Demented, no respiratory distress SKIN: Pallor, warm HEENT: Partial alopecia, pale palpebral conjunctivae, no ptosis, moist buccal mucosa NECK : Supple, no tenderness CHEST : CTA, no tenderness HEART : RRR, systolic murmur ABDOMEN: No distention, nontender EXTREMITIES : No LE swelling/tenderness, no other conspicuous deformities noted NEUROLOGIC : Demented, no facial asymmetry, slightly hard of hearing, gait and stance not assessed Results & Data Results & Data Vital Signs (Past 12 Hours) Vital Signs Temp Pulse Pulse Resp BP Pulse Ox O2 Del Method 01/17/25 07:43 70 01/17/25 07:18 36.4 C L 67 19 151/78 H 97 Room Air 01/17/25 02:40 36.8 C 79 18 112/77 92 Room Air
[2025-01-18] MEDS: ADVANCED PROBIOTIC 625 MG CAPSULE PO SCH (08:05)
--- NOTE | 2025-01-18 12:22 | Hospitalist Progress Note ---
Date of Service January 18, 2025 Assessment & Plan (1) Encephalopathy: Plan: 89 yo M w/ PMH of HFrEF (EF 30 to 35%, TTE 2024), CHB s/p PPM, valvular heart disease (moderate /mild MR), NSTEMI, PVD, HTN, orthostatic hypotension on midodrine, cerebellar hemorrhage s/p surgery, history traumatic subdural hematoma, ABDI on CPAP, history of adrenal insufficiency as per records, DM2 diet-controlled, hypothyroidism, chronic anemia (baseline hemoglobin of 11-12), GERD, radiation proctitis as per records, retroperitoneal bleed (while on heparin for NSTEMI, oct 2024), prostate cancer status post radiation, BPH, chronic back pain, dementia, past tobacco abuse who was recently in ED about 2 wks ago 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 He was having urinary complaints, more confused than usual for last few days IT SECURITY CONSULTANT, had unsuccessful smart cath removal at urology office on the day of arrival. Likely catheter associated UTI Metabolic encephalopathy: Likely secondary to above ISO underlying dementia, CT head w/ no acute findings. stroke ruled out. History of BPH History of prostate cancer status post radiation Patient had Smart catheter placed about 2 weeks ago IT SECURITY CONSULTANT for urinary retention, see above. U Cx w/ E faecalis, continue with Zosyn 01/16, PO macrobid on dc to complete 7d Rx. Smart was exchanged at presentation in ED. Patient's mentation seems to have improved back to his baseline Other chronic medical conditions: Continue with/resume home meds as when able. 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 SCDs Re: History spontaneous cerebellar hemorrhage DNR as per prior directives. Patient's was given phone call to give general update 01/17. She states that she is overwhelmed and is not able to take care of Bill. Communicated with case specialist for possible need for placement. Patient is stable medically for discharge. Text document was generated using [employer] voice recognition software. It may contain grammatical or spelling errors. Kindly contact undersigned for clarification of any documentation item in question. Admission and Anticipated Discharge Date Admission Date: January 15, 2025 Subjective Patient was seen and examined at bedside. Patient alert and oriented x 3, denies pain. Patient reports eating okay and moving bowels okay. Pt denies sore throat, cough, chest pain, abdominal pain. Per RN no new acute issues. Physical Exam Physical Exam: GENERAL: Demented, no respiratory distress SKIN: Pallor, warm HEENT: Partial alopecia, pale palpebral conjunctivae, no ptosis, moist buccal mucosa NECK : Supple, no tenderness CHEST : CTA, no tenderness HEART : RRR, systolic murmur ABDOMEN: No distention, nontender EXTREMITIES : No LE swelling/tenderness, no other conspicuous deformities noted NEUROLOGIC : Demented, no facial asymmetry, slightly hard of hearing, gait and stance not assessed Results & Data Results & Data Vital Signs (Past 12 Hours) Vital Signs Temp Pulse Pulse Resp BP Pulse Ox O2 Del Method 01/18/25 11:26 36.6 C 82 18 108/70 95 Room Air 01/18/25 10:01 73 01/18/25 07:44 36.4 C L 77 18 143/87 H 95 Room Air 01/18/25 03:07 36.4 C L 61 16 133/83 94 Room Air
--- NOTE | 2025-01-19 04:32 | Communication Note ---
Date of Service: January 19, 2025 Patient requesting for Imodium for chronic diarrhea symptoms as per RN. Patient denies abdominal pain.
[2025-01-19] MEDS: LOPERAMIDE HCL 2 MG CAP PO PRN (05:15)
--- NOTE | 2025-01-19 14:43 | Hospitalist Progress Note ---
Date of Service January 19, 2025 Assessment & Plan (1) Encephalopathy: Plan: 89 yo M w/ PMH of HFrEF (EF 30 to 35%, TTE 2024), CHB s/p PPM, valvular heart disease (moderate /mild MR), NSTEMI, PVD, HTN, orthostatic hypotension on midodrine, cerebellar hemorrhage s/p surgery, history traumatic subdural hematoma, ABDI on CPAP, history of adrenal insufficiency as per records, DM2 diet-controlled, hypothyroidism, chronic anemia (baseline hemoglobin of 11-12), GERD, radiation proctitis as per records, retroperitoneal bleed (while on heparin for NSTEMI, oct 2024), prostate cancer status post radiation, BPH, chronic back pain, dementia, past tobacco abuse who was recently in ED about 2 wks ago 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 He was having urinary complaints, more confused than usual for last few days SENIOR WEB ARCHITECT, had unsuccessful smart cath removal at urology office on the day of arrival. Likely catheter associated UTI Metabolic encephalopathy: Likely secondary to above ISO underlying dementia, CT head w/ no acute findings. stroke ruled out. History of BPH History of prostate cancer status post radiation Patient had Smart catheter placed about 2 weeks ago SENIOR WEB ARCHITECT for urinary retention, see above. U Cx w/ E faecalis, continue with Zosyn 01/16, PO macrobid on dc to complete 7d Rx. Smart was exchanged at presentation in ED. Patient's mentation seems to have improved back to his baseline f/u w/ uro upon dc. Other chronic medical conditions: Continue with/resume home meds as when able. 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 SCDs Re: History spontaneous cerebellar hemorrhage DNR as per prior directives. Patient's was given phone call to give general update 01/17. She states that she is overwhelmed and is not able to take care of Bill. Communicated with counter caser for possible need for placement. Patient is stable medically for discharge. Text document was generated using [employer] voice recognition software. It may contain grammatical or spelling errors. Kindly contact undersigned for clarification of any documentation item in question. Admission and Anticipated Discharge Date Admission Date: January 15, 2025 Subjective Patient was seen and examined at bedside. Patient alert and oriented x 3, denies pain. Patient reports eating okay and moving bowels okay. Pt denies sore throat, cough, chest pain, abdominal pain. Per RN no new acute issues. Pt doesn't want to go to snf, d/w CM - pt likely will go home w/ HH, would like to take him zina. Physical Exam Physical Exam: GENERAL: Demented, no respiratory distress SKIN: Pallor, warm HEENT: Partial alopecia, pale palpebral conjunctivae, no ptosis, moist buccal mucosa NECK : Supple, no tenderness CHEST : CTA, no tenderness HEART : RRR, systolic murmur ABDOMEN: No distention, nontender EXTREMITIES : No LE swelling/tenderness, no other conspicuous deformities noted NEUROLOGIC : Demented, no facial asymmetry, slightly hard of hearing, gait and stance not assessed Results & Data Results & Data Vital Signs (Past 12 Hours) Vital Signs Temp Pulse Pulse Resp BP Pulse Ox O2 Del Method 01/19/25 14:24 79 01/19/25 11:03 36.6 C 74 18 113/74 97 Room Air 01/19/25 07:40 36.6 C 74 20 127/79 95 Room Air 01/19/25 07:21 79 01/19/25 02:43 36.7 C 83 18 123/77 96 Room Air
--- NOTE | 2025-01-20 11:07 | Hospitalist Progress Note ---
Date of Service January 20, 2025 Assessment & Plan (1) Encephalopathy: Plan: 89 yo M w/ PMH of HFrEF (EF 30 to 35%, TTE 2024), CHB s/p PPM, valvular heart disease (moderate /mild MR), NSTEMI, PVD, HTN, orthostatic hypotension on midodrine, cerebellar hemorrhage s/p surgery, history traumatic subdural hematoma, ABDI on CPAP, history of adrenal insufficiency as per records, DM2 diet-controlled, hypothyroidism, chronic anemia (baseline hemoglobin of 11-12), GERD, radiation proctitis as per records, retroperitoneal bleed (while on heparin for NSTEMI, oct 2024), prostate cancer status post radiation, BPH, chronic back pain, dementia, past tobacco abuse who was recently in ED about 2 wks ago 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 He was having urinary complaints, more confused than usual for last few days EXPLORATION GEOLOGIST, had unsuccessful smart cath removal at urology office on the day of arrival. Likely catheter associated UTI Metabolic encephalopathy: Likely secondary to above ISO underlying dementia, CT head w/ no acute findings. stroke ruled out. History of BPH History of prostate cancer status post radiation Patient had Smart catheter placed about 2 weeks ago EXPLORATION GEOLOGIST for urinary retention, see above. U Cx w/ E faecalis Treated with Zosyn. Mentation back to baseline Patient reports diarrhea; will monitor for recurrence of diarrhea. Possible DC to rehab Other chronic medical conditions: Continue with/resume home meds as when able. 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 SCDs Re: History spontaneous cerebellar hemorrhage DNR as per prior directives. Please note the above document was generated using voice recognition software. It may contain grammatical, syntax or spelling errors. Any formal questions or concerns about the content, text or information contained within the body of this dictation should be directly addressed to the provider for clarification Admission and Anticipated Discharge Date Admission Date: January 15, 2025 Subjective Patient seen and examined at bedside. He is comfortable; not in distress. Reports some diarrhea intermittently. Mentation is at baseline No significant events overnight Review of Systems Review of Systems: All systems reviewed & are unremarkable except as noted in Subjective Physical Exam Physical Exam: GENERAL: Demented, no respiratory distress SKIN: Pallor, warm HEENT: Partial alopecia, pale palpebral conjunctivae, no ptosis, moist buccal mucosa NECK : Supple, no tenderness CHEST : CTA, no tenderness HEART : RRR, systolic murmur ABDOMEN: No distention, nontender EXTREMITIES : No LE swelling/tenderness, no other conspicuous deformities noted NEUROLOGIC : Demented, no facial asymmetry, slightly hard of hearing, gait and stance not assessed Results & Data Results & Data Vital Signs (Past 12 Hours) Vital Signs Temp Pulse Pulse Resp BP Pulse Ox O2 Del Method 01/20/25 07:49 36.7 C 87 16 121/78 96 Room Air 01/20/25 07:14 75 01/20/25 03:11 36.5 C 76 18 118/71 93 Room Air 01/19/25 23:11 36.5 C 85 18 104/69 93 Room Air
[2025-01-20 12:09] LABS: Creatinine Clr Calc Pharmacy 37.1 ml/min
[2025-01-20] MEDS ORDERED: AMOXICILLIN/CLAVULANATE 875 MG TAB PO SCH (17:00)
[2025-01-20 20:40] VITALS: RESP 18
[2025-01-21 07:40] LABS: Anion Gap 9.0 (3-11); Blood Urea Nitrogen 17.0 mg/dl (6-23); Calcium 9.3 mg/dl (8.6-10.3); Carbon Dioxide 24.0 mmol/L (21-32); Chloride 103.0 mmol/L (98-107); Creatinine Clr Calc Pharmacy 51.9 ml/min; Glucose 93.0 mg/dl (70-99(Fasting)); Potassium 3.8 mmol/L (3.5-5.1); Sodium 136.0 mmol/L (136-145)
[2025-01-21 11:34] VITALS: BP 117/79; PULSE 71; TEMP 97.2; O2SAT 92
--- NOTE | 2025-01-21 12:21 | Discharge Summary ---
Date of Service January 21, 2025 Admission HPI Per Admitting Provider History obtained from patient's family and records. Limited history from patient secondary to confusion and agitation. Medical history significant for chronic systolic heart failure (EF 30 to 35%, TTE 2024), complete heart block status post PPM, valvular heart disease (moderate /mild MR), history of NSTEMI, PVD, hypertension, orthostatic hypotension on midodrine, cerebellar hemorrhage status post surgery, history traumatic subdural hematoma, ABDI on CPAP, history of adrenal insufficiency as per records, DM2 diet-controlled, hypothyroidism, chronic anemia (baseline hemoglobin of 11-12), GERD, radiation proctitis as per records, history of retroperitoneal bleed, prostate cancer status post radiation, BPH, chronic back pain, dementia, past tobacco abuse. Recent confinement October 2024 for NSTEMI. IV heparin discontinued after patient developed retroperitoneal bleed. Conservative management recommended by cardiology for patient's NSTEMI. Patient developed shingles affecting the left side of the face and ear last month. Painful rash resolved with outpatient Valtrex course. Recent ER visit 2 weeks ago for urinary retention. Smart catheter placed at the ER prior to discharge. Patient complaining of UTI symptoms to his the last few days. Patient more confused than usual. Denies headache, chest pain, SOB. Unsuccessful Smart catheter removal at [facility] [place] [facility] urology office today. Achy back pain as per patient. No abdominal pain. No abdominal pain. No hematuria. Patient brought to ER for evaluation. IV ceftriaxone administered at the ER. 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 Admission Exam Per Admitting Provider GENERAL: Demented, no respiratory distress SKIN: Pallor, warm HEENT: Partial alopecia, pale palpebral conjunctivae, no ptosis, dry buccal mucosa NECK : Supple, no tenderness CHEST : CTA, no tenderness HEART : RRR, systolic murmur ABDOMEN: Some distention, nontender EXTREMITIES : No LE swelling/tenderness, no other conspicuous deformities noted NEUROLOGIC : Demented, no facial asymmetry, slightly hard of hearing, gait and stance not assessed Principal Diagnosis Catheter associated UTI, POA Metabolic encephalopathy Discharge Exam GENERAL: Awake, alert oriented x 3; not in distress. SKIN: Pallor, warm HEENT: Partial alopecia, pale palpebral conjunctivae, no ptosis, moist buccal m [place]osa NECK : Supple, no tenderness CHEST : CTA, no tenderness HEART : RRR, systolic murmur ABDOMEN: No distention, nontender EXTREMITIES : No LE swelling/tenderness, no other conspicuous deformities noted NEUROLOGIC : Demented, no facial asymmetry, slightly hard of hearing, gait and stance not assessed Discharge Data Allergies Allergy/AdvReac Type Severity Reaction Status Date / Time clindamycin Allergy Unknown unknown--per Verified 01/15/25 16:55 [facility] record amoxicillin AdvReac Severe JAUNDICE Verified 01/15/25 16:55 clavulanic acid AdvReac Severe JAUNDICE Verified 01/15/25 16:55 dicyclomine [From Bentyl] AdvReac Intermediate dizziness, Verified 01/15/25 16:55 light headedness gabapentin AdvReac Intermediate PSYCH Verified 01/15/25 16:55 COMPLICATIONS isosorbide AdvReac Intermediate PAIN IN Verified 01/15/25 16:55 LIMBS/DIARRHEA/FATIGUE oxycodone AdvReac Intermediate Confusion Verified 01/15/25 16:55 pregabalin [From Lyrica] AdvReac Intermediate Confusion Verified 01/15/25 16:55 Consultations 01/15/25 19:24 ED Decision to Admit Stat Ordered Studies 01/15/25 16:39 CT angio head w con Stat CT angio neck with con Stat CT head/brain wo con Stat 01/15/25 21:43 CT abd pelvis wo con Stat Hospital Course (1) Encephalopathy: 89 yo M w/ PMH of HFrEF (EF 30 to 35%, TTE 2024), CHB s/p PPM, valvular heart disease (moderate /mild MR), NSTEMI, PVD, HTN, orthostatic hypotension on midodrine, cerebellar hemorrhage s/p surgery, history traumatic subdural hematoma, ABDI on CPAP, history of adrenal insufficiency as per records, DM2 diet-controlled, hypothyroidism, chronic anemia (baseline hemoglobin of 11-12), GERD, radiation proctitis as per records, retroperitoneal bleed (while on heparin for NSTEMI, oct 2024), prostate cancer status post radiation, BPH, chronic back pain, dementia, past tobacco abuse who was recently in ED about 2 wks ago [employer]ERAPIST for urinary 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 Likely catheter associated UTI Metabolic encephalopathy: Likely secondary to above ISO underlying dementia, CT head w/ no acute findings. History of BPH History of prostate cancer status post radiation Patient had Smart catheter placed about 2 weeks ago MEDICAL ART THERAPIST for urinary retention, U Cx w/ E faecalis Treated with Zosyn;completed course. Mentation back to baseline Patient was discharged home with Smart catheter with instructions to follow-up with urology for trial of void. Please note the above document was generated using voice recognition software. It may contain grammatical, syntax or spelling errors. Any formal questions or concerns about the content, text or information contained within the body of this dictation should be directly addressed to the provider for clarification Total Time Total Time Spent Total Time Spent (In Minutes): 45 Total Time Includes: Examination of the Patient, Discharge Planning, Medication Reconciliation, Communication With Other Providers and Other Discharge Plan Discharge Items Patient Disposition: Home - Self-Care Reason For Visit: AMS, COMP UTI Discharge Diagnosis: Likely catheter associated UTI Metabolic encephalopathy: History of BPH History of prostate cancer status post radiation Condition on Discharge: Fair Activity: Resume your previous activity Non-emergency contact: Primary Care Provider Call non-emergency contact if: you have any medication questions and your symptoms worsen Follow-up/Referrals: Jonathan Lan MD [Primary Care Provider] - (Date & Time 01/26/2025 1:00 PM Provider: Manpreet Louie PA-C [facility] ) Diet: Regular Addtl Attending Provider Instructions: You were admitted to the hospital due to UTI. You are treated with antibiotic during the hospitalization. Follow-up with your primary care doctor as scheduled Pending Studies at Discharge: No Stand-Alone Forms: My [employer], Smoking Cessation Medications and DC Order Prescriptions: New Advanced Probiotic 625 mg (10 billion cell) Capsule 2 cap PO DAILY Qty: 60 0RF Continued finasteride 5 mg tablet 5 mg PO QAM levothyroxine 75 mcg Tablet 75 mcg PO DAILYBB nitroglycerin 0.4 mg Tablet, Sublingual 0.4 mg sublingual Q5W PRN (Reason: Chest Pain) cholecalciferol (vitamin D3) [Vitamin D3] 1,000 unit Tablet 1,000 unit PO QAM omeprazole 20 mg Tablet,Delayed Release (Dr/Ec) 20 mg PO QAM rosuvastatin 10 mg Tablet 10 mg PO HS duloxetine 60 mg Capsule, Delayed Rel Sprinkle 60 mg PO QAM metoprolol succinate 25 mg tablet extended release 24 hr 25 mg PO AMHS furosemide 20 mg tablet 20 mg PO 3XWK Rx Instructions: PER PT'S "HE IS SO DEHYDRATED, I HAVE NOT GIVEN IT TO HIM". sunday/sunday/sunday aspirin 81 mg tablet 81 mg PO DAILY Qty: 30 0RF midodrine 2.5 mg tablet 2.5 mg PO TID Rx Instructions: PER PT'S "RAN OUT OF MED, WAS HEADED TO THE PHARMACY TO PICK IT UP, WHEN THIS HAPPENED". cyanocobalamin (vitamin B-12) [Vitamin B-12] 100 mcg Tablet 100 mcg PO DAILY menthol 7.5 % Adhesive Patch,Medicated 1 patch TOPICAL DIRECTED PRN (Reason: AFFECTED AREA/PAIN) Discharge Orders: Discharge Order (Routine); Ordered 01/21/25 Ordered By: Toney Bardales/Other Patient Handouts: ED Smart Catheter, Care, ED Urinary Retention, Male Admission Data Admit Date/Time: 01/15/25 20:53 Attending Provider: Toney Hernandez Admit Provider: Gamal Gonzalez Primary Care Provider: Jonathan Lan Other Providers: Gamal Gonzalez; Edwin Salazar [facility] Other Interventions: Discharge Summary Assessment (RN) Last Done: 01/21/25 10:54
== END 2025-01-21 15:58 | disposition home or self-care (01) | DRG 698 ==
LOC: ED 16:18 → 4W 20:53 → SUATTDRO 20:53 → 4W 23:09 → 2W 01-17 16:57